=== PATIENT | female | born 1935 | race Caucasian/White ===

== ENCOUNTER 2016-11-24 19:21 | Outpatient (CLI) | payer MEDICARE | END 2016-11-24 23:59 | disposition critical access hospital (66) | LOC: EMS 19:21 | PROVIDERS: ATTEND Surgery | DX: R53.1 Weakness (principal); W18.39XA Other fall on same level, initial encounter; Y92.002 Bathroom of unspecified non-institutional (private) residence as the place of occurrence of the external cause | CPT/HCPCS: A0425; A0427 ==

== ENCOUNTER 2016-11-24 19:55 | Emergency (ER) | payer MEDICARE ==
[2016-11-24] MEDS ORDERED: SODIUM CHLORIDE 0.9% 1,000 ML IV ONE (20:26)
[2016-11-24 21:08] LABS: BASOPHILS # (AUTO) 0.1 10^3/uL (0.0-0.1); BASOPHILS % (AUTO) 0.8 %; EOSINOPHILS % (AUTO) 0.4 %; HCT - HEMATOCRIT 36.1 % (37.0-47.0); HGB - HEMOGLOBIN 12.3 g/dL (12.0-16.0); LYMPHOCYTES # (AUTO) 1.9 10^3/uL (1.5-3.5); LYMPHOCYTES % (AUTO) 18.3 %; MEAN CORPUSCULAR HEMOGLOBIN 30.5 pg (27.0-31.0); MEAN CORPUSCULAR VOLUME 89.8 fL (81.0-99.0); MEAN PLATELET VOLUME 7.6 fL (7.9-10.8); MONOCYTES # (AUTO) 1.8 10^3/uL (0.0-1.0); MONOCYTES % (AUTO) 17.6 %; NEUTROPHILS # (AUTO) 6.5 10^3/uL (1.5-6.6); NEUTROPHILS % (AUTO) 62.9 %; RED BLOOD COUNT 4.02 10^6/uL (4.20-5.40); UNCORRECTED WHITE BLOOD COUNT 10.4 x10^3/uL; WHITE BLOOD COUNT 10.4 x10^3/uL (4.8-10.8)
[2016-11-24 21:11] LABS: BILIRUBIN,TOTAL 0.8 mg/dL (0.2-1.0); CALCIUM 9.3 mg/dL (8.5-10.3); CREATININE 0.8 mg/dL (0.4-1.0); POTASSIUM 3.8 mmol/L (3.5-5.0); TOTAL PROTEIN 7.4 g/dL (6.7-8.2)
[2016-11-24 21:26] LABS: BILIRUBIN,URINE NEGATIVE (NEGATIVE); PH,URINE 5.5 PH (5.0-7.5)
[2016-11-24 21:32] LABS: UA CHARGE (STRIP ONLY) YES; UR CULTURE IF IND NOT INDICATED
--- NOTE | 2016-11-24 23:04 | CT Preliminary Report ---
Exam: CT Head W/O IMPRESSION: No acute or focal intracranial abnormality. [facility] SITE ID: [id number]
--- NOTE | 2016-11-24 23:06 | CT Report ---
EXAM: CT HEAD EXAM DATE: 11/24/2016 10:50 PM. CLINICAL HISTORY: Falling due to weakness. COMPARISON: 06/23/2014. TECHNIQUE: Multiaxial CT images were obtained from the foramen magnum to the vertex. IV contrast: Non e. Reformats: Coronal. In accordance with CT protocol optimization, one or more of the following dose reduction techniques w ere utilized for this exam: automated exposure control, adjustment of mA and/or KV based on patient s ize, or use of iterative reconstructive technique. FINDINGS: Parenchyma: No intraparenchymal hemorrhage. No evidence of mass, midline shift, or CT findings of inf arction. Landa-white differentiation is distinct. Extraaxial Spaces: Normal for age. No subdural or epidural collections identified. Ventricles: Normal in size and position. Sinuses: Imaged paranasal sinuses, orbits, and mastoids show no significant abnormality. Bones: No evidence of fracture or calvarial defect. Other: No change when compared to the prior study. IMPRESSION: No acute or focal intracranial abnormality. [facility] Referring Provider Line: [phone] SITE ID: [id number]
--- NOTE | 2016-11-24 23:15 | ED Physician Documentation ---
History of Present Illness - Stated complaint Stated Complaint: GLF - History obtained from History obtained from: Patient, EMS - Additonal information Additional information: The patient is an 81-year-old insulin-dependent diabetic female who arrives via ambulance after falling in her bathroom at home. She felt generally weak in her legs and crumbled to the floor. She denies loss of consciousness, and denies any specific injury except for pain in her right knee. She was unable to stand under her own power, so called 911. She denies any recent fever, cough or shortness of breath. She denies chest pain, nausea or vomiting. She denies dysuria. She reports having a similar episode at 3 AM today, and called 911 at that time, and the medics helped her up, but she declined transport to the hospital at that time. The patient currently lives alone. Normally her son lives with her, but he is currently a patient in the hospital. Review of Systems Constitutional: denies: Fever Ears: denies: Tinnitus/ringing Nose: denies: Congestion Throat: denies: Sore throat Cardiac: denies: Chest pain / pressure, Palpitations Respiratory: denies: Dyspnea, Cough GI: denies: Abdominal Pain, Nausea, Vomiting : denies: Dysuria Skin: denies: Rash Musculoskeletal: reports: Joint pain (right knee). denies: Back pain Neurologic: reports: Generalized weakness. 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 : None HEENT: None Psych: None Musculoskeletal: None Derm: None - Past Surgical History Past Surgical History: Yes /FACILITY SECURITY OFFICER: Hysterectomy HEENT: Cataracts, Tonsil/Adenoidectomy - Present Medications Home Medications: Ambulatory Orders Medication Instructions Recorded Confirmed Insulin Glargine [Lantus] 54 units SUBQ QPM 06/23/14 11/24/16 Levothyroxine [Synthroid] 175 mcg ORAL DAILY 06/23/14 11/24/16 Lisinopril 20 mg ORAL DAILY 06/23/14 11/24/16 Lovastatin [Altoprev] 40 mg ORAL QPM 06/23/14 11/24/16 Hydrochlorothiazide 25 mg PO DAILY 06/22/15 11/24/16 Insulin Regular, Human [Novolin R] 20 units SUBQ AC 06/22/15 11/24/16 PARoxetine [Paxil] 40 mg PO DAILY 06/22/15 11/24/16 Carvedilol 3.125 mg PO BID 01/29/16 11/24/16 Furosemide 40 mg PO BID 01/29/16 11/24/16 Levofloxacin [Levaquin] 500 mg PO DAILY #3 tablet 02/01/16 11/24/16 - Allergies Allergies/Adverse Reactions: Allergies Allergy/AdvReac Type Severity Reaction Status Date / Time No Known Drug Allergies Allergy Verified 11/24/16 23:30 - Social History Does the pt smoke?: No Smoking Status: Never smoker Does the pt drink ETOH?: No Does the pt have substance abuse?: No - Immunizations Immunizations are current?: Yes PD ED PE NORMAL - Vitals Vital signs reviewed: Yes (borderline systolic hypertension) - General General: Alert and oriented X 3, Other (morbidly obese) - HEENT HEENT: Atraumatic, PERRL, EOMI, Pharynx benign - Neck Neck: No bony TTP, No JVD - Cardiac Cardiac: RRR, No murmur - Respiratory Respiratory: No respiratory distress, Clear bilaterally - Abdomen Abdomen: Soft, Non tender - Back Back: No spinal TTP - Derm Derm: No rash - Extremities Extremities: No calf tenderness / cord, Other (There is tenderness to palpation along the medial joint line of the right knee. No tenderness to palpation along the lateral joint line, and no effusion detected. She was able to flex and extend the knee, although it exacerbates her discomfort.) - Neuro Neuro: Alert and oriented X 3, No motor deficit, No sensory deficit Results - Vitals Vitals: Vital Signs - 24 hr 11/24/16 11/24/16 11/24/16 19:55 20:45 22:00 Temperature 37.4 C Heart Rate 90 80 82 Respiratory 18 18 16 Rate Blood Pressure 140/53 H 148/59 H 167/44 H O2 Saturation 87 L 94 95 11/24/16 11/25/16 11/25/16 23:00 00:12 00:48 Temperature Heart Rate 78 86 75 Respiratory 18 16 18 Rate Blood Pressure 155/60 H 135/46 H 136/60 H O2 Saturation 95 94 94 Oxygen O2 Source [] Nasal cannula O2 Source Room air Oxygen Flow Rate 3 - EKG (time done) 20:31 Rate: Rate (enter#) (83) Rhythm: NSR [place]: Normal Intervals: Prolonged [place] (borderline) QRS: Normal Ischemia: Non specific changes (Diffuse T wave flattening.) Compare to prior EKG: Unchanged from prior EKG Computer interpretation: Agree with computer - Labs Labs: Laboratory Tests 11/24/16 11/24/16 11/24/16 20:50 20:50 20:50 WBC 10.4 RBC 4.02 L Hgb 12.3 Hct 36.1 L MCV 89.8 MCH 30.5 MCHC 34.0 RDW 13.0 Plt Count 238 MPV 7.6 L Neut # 6.5 Lymph # 1.9 [place] # 1.8 H Eos # 0.0 Baso # 0.1 Absolute Nucleated RBC 0.00 Nucleated RBCs 0.0 Sodium 134 L Potassium 3.8 Chloride 91 L Carbon Dioxide 33 H Anion Gap 10.0 BUN 19 Creatinine 0.8 Estimated GFR (MDRD) 69 L Glucose 171 H Calcium 9.3 Total Bilirubin 0.8 AST 58 H ALT 60 Alkaline Phosphatase 163 H Troponin I 0.04 Total Protein 7.4 Albumin 3.7 Globulin 3.7 Albumin/Globulin Ratio 1.0 Lipase 24 Urine Color Urine Clarity Urine pH Ur Specific [place] Urine Protein Urine Glucose (UA) Urine Ketones Urine Occult Blood Urine Nitrite Urine Bilirubin Urine Urobilinogen Ur Leukocyte Esterase Ur Microscopic Review Urine Culture Comments 11/24/16 21:00 WBC RBC Hgb Hct MCV MCH MCHC RDW Plt Count MPV Neut # Lymph # [place] # Eos # Baso # Absolute Nucleated RBC Nucleated RBCs Sodium Potassium Chloride Carbon Dioxide Anion Gap BUN Creatinine Estimated GFR (MDRD) Glucose Calcium Total Bilirubin AST ALT Alkaline Phosphatase Troponin I Total Protein Albumin Globulin Albumin/Globulin Ratio Lipase Urine Color YELLOW Urine Clarity CLEAR Urine pH 5.5 Ur Specific [place] 1.020 Urine Protein TRACE Urine Glucose (UA) NEGATIVE Urine Ketones TRACE Urine Occult Blood NEGATIVE Urine Nitrite NEGATIVE Urine Bilirubin NEGATIVE Urine Urobilinogen 0.2 (NORMAL) Ur Leukocyte Esterase NEGATIVE Ur Microscopic Review NOT INDICATED Urine Culture Comments NOT INDICATED - Rads (name of study) Head CT Radiology: Prelim report reviewed, EMP read contemporaneously, See rad report ( No acute or focal intracranial abnormality.) Right knee Radiology: Prelim report reviewed, EMP read contemporaneously, See rad report ( No right knee fracture or dislocation. Moderate to severe degenerative changes.) PD MEDICAL DECISION MAKING - ED course Complexity details: reviewed old records, reviewed results, re-evaluated patient , considered differential, d/w patient ED course: The patient's presentation is significant for generalized weakness with associated falling in a chronically debilitated elderly female with insulin- dependent diabetes and supplemental oxygen dependency. No significant injuries are detected from her fall today, except for mild contusion to the right knee. There is no focal motor or sensory deficit detected, and the patient does demonstrate ability to ambulate with a walker in the emergency department. I suspect her son who normally lives with her has been helpful to her in the past , but he is currently hospitalized himself. It is likely the patient will benefit from assisted living, or at least some in home health care, and possibly a bedside commode at home. I discussed with her my thoughts regarding the above. She agrees that she may benefit from supportive care, and will discuss this with her primary provider. I provided her with the family resource guide, with contact information for community services. I discussed with her potentially worrisome signs or symptoms that should prompt reevaluation in the emergency department. Treatment in the emergency room included administration of normal saline 500 mL IV. Departure - Departure Disposition: 01 Home, Self Care Clinical Impression: Weakness Fall Qualifiers: Encounter type: initial encounter Qualified Code(s): W19.XXXA - Unspecified fall, initial encounter Right knee DJD Qualifiers: Osteoarthritis type: unspecified Qualified Code(s): M17.11 - Unilateral primary osteoarthritis, right knee Condition: Stable Instructions: ED Weakness UKO Follow-Up: Flor Macario ARNP [Provider Admit Priv/Credential] - Comments: Drink plenty of fluids. Continue your previously prescribed medications. Consider getting a bedside commode. Consider an assisted living facility. You should discuss this with your primary physician. Return to the emergency department if you develop progressive weakness, or otherwise worsening symptoms. Discharge Date/Time: 11/25/16 00:50
--- NOTE | 2016-11-24 23:23 | XRAY Preliminary Report ---
Exam: XR Knee 3 View RT IMPRESSION: 1. No right knee fracture or dislocation. 2. Moderate to severe degenerative changes. [facility] SITE ID: [id number]
--- NOTE | 2016-11-24 23:26 | XRAY Report ---
EXAM: RIGHT KNEE RADIOGRAPHY EXAM DATE: 11/24/2016 10:35 PM. CLINICAL HISTORY: Right knee pain after fall. COMPARISON: None. TECHNIQUE: 3 views. FINDINGS: Bones: Normal. No fractures or bone lesions. Joints: No malalignment with moderate to severe tricompartmental degenerative changes, worse in the m edial compartment of the femorotibial joint. Soft Tissues: Normal. No soft tissue swelling. IMPRESSION: 1. No right knee fracture or dislocation. 2. Moderate to severe degenerative changes. [facility] Referring Provider Line: [phone] SITE ID: [id number]
[2016-11-25 00:50] VITALS: BP 136/60
== END 2016-11-25 00:50 | disposition home or self-care (01) ==
LOC: ED 19:55
DX: R53.1 Weakness (principal); S80.01XA Contusion of right knee, initial encounter; W18.30XA Fall on same level, unspecified, initial encounter; Y92.002 Bathroom of unspecified non-institutional (private) residence as the place of occurrence of the external cause; M17.11 Unilateral primary osteoarthritis, right knee; E11.9 Type 2 diabetes mellitus without complications; Z79.4 Long term (current) use of insulin; E03.9 Hypothyroidism, unspecified; I10 Essential (primary) hypertension; E78.00 Pure hypercholesterolemia, unspecified
CPT/HCPCS: 36415; 51701; 70450; 80053; 81001; 81003; 83690; 84484; 85025; 87086; 93005; 93010; 96360; 96361; 99284; 99285

== ENCOUNTER 2017-05-14 23:24 | Outpatient (CLI) | payer MEDICARE | END 2017-05-14 23:25 | disposition EMS.NT | LOC: EMS 23:24 | PROVIDERS: ATTEND Surgery | DX: S00.81XA Abrasion of other part of head, initial encounter (principal); W01.198A Fall on same level from slipping, tripping and stumbling with subsequent striking against other object, initial encounter; Y92.013 Bedroom of single-family (private) house as the place of occurrence of the external cause ==

== ENCOUNTER 2017-05-15 10:02 | Outpatient (CLI) | payer MEDICARE | END 2017-05-15 10:03 | disposition critical access hospital (66) | LOC: EMS 10:02 | PROVIDERS: ATTEND Surgery | DX: R53.1 Weakness (principal); R26.81 Unsteadiness on feet | CPT/HCPCS: A0425; A0429 ==

== ENCOUNTER 2017-05-15 10:37 | Inpatient (IN) | payer MEDICARE, MEDICAID ==
--- NOTE | 2017-05-15 10:52 | ED Physician Documentation ---
History of Present Illness - Stated complaint Stated Complaint: WEAK - Additonal information Additional information: hx from pt and EMS with with generalized weakness and shaking some abnormal smelling urine a cough - saw PMD dx PND - no CXR febrile en route was weak and fell last night - hit head hurt R shoulder - EMS out for lift assist [facility] 270 pt declined transfer - still weak and shaky today so called 911 again and brought in Review of Systems Constitutional: denies: Fever, Chills Cardiac: denies: Chest pain / pressure Respiratory: reports: Dyspnea, Cough GI: denies: Abdominal Pain, Nausea, Vomiting, Diarrhea : denies: Dysuria Skin: denies: Rash, Lesions, Laceration (s) Musculoskeletal: denies: Neck pain (but given age and distracting injury will image) Neurologic: reports: Generalized weakness, Headache, Head injury. 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: Hysterectomy HEENT: Cataracts, Tonsil/Adenoidectomy - Present Medications Home Medications: Ambulatory Orders Medication Instructions Recorded Confirmed Insulin Glargine [Lantus] 54 units SUBQ QPM 06/23/14 11/24/16 Levothyroxine [Synthroid] 175 mcg ORAL DAILY 06/23/14 11/24/16 Lisinopril 20 mg ORAL DAILY 06/23/14 11/24/16 Lovastatin [Altoprev] 40 mg ORAL QPM 06/23/14 11/24/16 Hydrochlorothiazide 25 mg PO DAILY 06/22/15 11/24/16 Insulin Regular, Human [Novolin R] 20 units SUBQ AC 06/22/15 11/24/16 PARoxetine [Paxil] 40 mg PO DAILY 06/22/15 11/24/16 Carvedilol 3.125 mg PO BID 01/29/16 11/24/16 Furosemide 40 mg PO BID 01/29/16 11/24/16 Levofloxacin [Levaquin] 500 mg PO DAILY #3 tablet 02/01/16 11/24/16 - Allergies Allergies/Adverse Reactions: Allergies Allergy/AdvReac Type Severity Reaction Status Date / Time No Known Drug Allergies Allergy Verified 11/24/16 23:30 - Social History Does the pt smoke?: No Smoking Status: Never smoker Does the pt drink ETOH?: No Does the pt have substance abuse?: No - Immunizations Immunizations are current?: Yes - POLST Patient has POLST: No PD ED PE NORMAL - Vitals Vital signs reviewed: Yes - HEENT HEENT: No: Atraumatic (large bruise to forehead) - Neck Neck: No bony TTP (but will image 2/2 age mechanism and distracting injury) - Cardiac Cardiac: RRR - Respiratory Respiratory: Other (hypoxic, labored, no ronchi) - Abdomen Abdomen: Soft, Non tender - Derm Derm: Other (no posterior breakdown) - Extremities Extremities: Other (no hip TTP, full ROM, no deformity, not short or roatated, R should s deformity but painful ROM, MSV intact) Results - Vitals Vitals: Vital Signs - 24 hr 05/15/17 10:43 Temperature 38.5 C H Heart Rate 98 Respiratory 18 Rate Blood Pressure 127/58 L O2 Saturation 92 Oxygen O2 Source [Without Activity] Nasal cannula O2 Source Nasal cannula Oxygen Flow Rate 2 - Labs Labs: Laboratory Tests 05/15/17 05/15/17 05/15/17 12:19 12:19 12:19 WBC 22.6 H RBC 3.97 L Hgb 12.0 Hct 35.0 L MCV 88.1 MCH 30.1 MCHC 34.2 RDW 13.2 Plt Count 258 MPV 7.3 L Neut # 17.4 H Lymph # 2.0 [place] # 3.2 H Eos # 0.0 Baso # 0.1 Absolute Nucleated RBC 0.01 Nucleated RBC % 0.0 Manual Slide Review Indicated RBC Morph Micro Appear 1+ ANISOCYTOSIS Sodium 134 L Potassium 3.5 Chloride 91 L Carbon Dioxide 29 Anion Gap 14.0 H BUN 27 H Creatinine 0.9 Estimated GFR (MDRD) 60 L Glucose 269 H Lactic Acid 1.6 Calcium 9.9 Urine Color Urine Clarity Urine pH Ur Specific [place] Urine Protein Urine Glucose (UA) Urine Ketones Urine Occult Blood Urine Nitrite Urine Bilirubin Urine Urobilinogen Ur Leukocyte Esterase Urine RBC Urine WBC Ur Squamous Epith Cells Urine Bacteria Ur Microscopic Review Urine Culture Comments 05/15/17 12:45 WBC RBC Hgb Hct MCV MCH MCHC RDW Plt Count MPV Neut # Lymph # [place] # Eos # Baso # Absolute Nucleated RBC Nucleated RBC % Manual Slide Review RBC Morph Micro Appear Sodium Potassium Chloride Carbon Dioxide Anion Gap BUN Creatinine Estimated GFR (MDRD) Glucose Lactic Acid Calcium Urine Color YELLOW Urine Clarity CLOUDY Urine pH 5.5 Ur Specific [place] 1.025 Urine Protein 30 H Urine Glucose (UA) NEGATIVE Urine Ketones NEGATIVE Urine Occult Blood NEGATIVE Urine Nitrite NEGATIVE Urine Bilirubin NEGATIVE Urine Urobilinogen 0.2 (NORMAL) Ur Leukocyte Esterase LARGE H Urine RBC 0-5 Urine WBC >25 H Ur Squamous Epith Cells FEW Squamous Urine Bacteria Many H Ur Microscopic Review INDICATED Urine Culture Comments INDICATED - Rads (name of study) CTH Radiology: See rad report (scalp hematoma no skull fx or ICH) CT CS Radiology: See rad report (no fx, degen changes) shoulder Radiology: See rad report (no acute degen changes) chest Radiology: See rad report (no acute) PD MEDICAL DECISION MAKING - ED course ED course: 81 female with febrile UTI and profound weakness causing falls not hypotensive and neg lactate gave IVF and ab paged hospitalist for admit [id number] Departure - Departure Disposition: 66 [facility] DC/Xfer Clinical Impression: Weakness UTI (urinary tract infection) Qualifiers: Urinary tract infection type: site unspecified Hematuria presence: without hematuria Qualified Code(s): N39.0 - Urinary tract infection, site not specified Falls Qualifiers: Encounter type: initial encounter Qualified Code(s): W19.XXXA - Unspecified fall, initial encounter
--- NOTE | 2017-05-15 11:48 | CT Preliminary Report ---
Exam: CT HEAD W/O IMPRESSION: 1. No acute intracranial abnormality is identified. 2. No acute fracture. 3. Frontal scalp edema and scalp hematoma. [facility] SITE ID: [id number]
--- NOTE | 2017-05-15 11:57 | CT Preliminary Report ---
Exam: CT CERVICAL SPINE W/O IMPRESSION: 1. No acute cervical spine abnormalities are identified. 2. Multilevel intervertebral disk degenerative changes of the cervical spine greatest at C5-C6 and C6 -C7. [facility] SITE ID: [id number]
--- NOTE | 2017-05-15 12:02 | CT Report ---
EXAM: CT HEAD WITHOUT CONTRAST EXAM DATE: 05/15/2017 11:37 AM. CLINICAL HISTORY: Fever, weakness. Fell and hit head. COMPARISON: 11/24/2016. 06/23/2014. TECHNIQUE: Multiaxial CT images were obtained from the foramen magnum to the vertex. Reformats: Coron al. IV contrast: None. In accordance with CT protocol optimization, one or more of the following dose reduction techniques w ere utilized for this exam: automated exposure control, adjustment of mA and/or KV based on patient s ize, or use of iterative reconstructive technique. FINDINGS: Parenchyma: No intraparenchymal hemorrhage. No evidence of mass, midline shift, or CT findings of inf arction. Landa-white differentiation is distinct. Remote right basal ganglia infarct versus prominent perivascular space, stable. Extraaxial Spaces: Normal for age. No subdural or epidural collections identified. Ventricles: Normal in size and position. Sinuses and Orbits: Chronic bilateral maxillary sinus disease. Chronic left sphenoid sinus disease. B ilateral mastoid effusions, right greater than left. Bones: No evidence of fracture or calvarial defect. Other: Changes are seen from bilateral lung surgery. Vascular calcifications are noted. Frontal scalp edema and hematoma with the hematoma measuring up to 1.7 cm. IMPRESSION: 1. No acute intracranial abnormality is identified. 2. No acute fracture. 3. Frontal scalp edema and scalp hematoma. [facility] Referring Provider Line: [phone] SITE ID: [id number]
--- NOTE | 2017-05-15 12:04 | XRAY Preliminary Report ---
Exam: XR CHEST 2 VIEW PA/LAT IMPRESSION: 1. No acute disease. [facility] SITE ID: [id number]
--- NOTE | 2017-05-15 12:06 | XRAY Preliminary Report ---
Exam: XR SHOULDER 3 VIEW RT IMPRESSION: 1. No acute osseous abnormalities. Normal alignment. 2. Degenerative changes of the right shoulder. [facility] SITE ID: [id number]
--- NOTE | 2017-05-15 12:07 | XRAY Report ---
EXAM: CHEST RADIOGRAPHY EXAM DATE: 05/15/2017 11:47 AM. CLINICAL HISTORY: Fever cough weak. COMPARISON: 01/29/2016. 06/22/2015. TECHNIQUE: 2 views. FINDINGS: Lungs/Pleura: No focal opacities evident. No pleural effusion. No pneumothorax. Normal volumes. Mediastinum: Cardiomegaly. Aortic atherosclerosis. Other: None. IMPRESSION: 1. No acute disease. [facility] Referring Provider Line: [phone] SITE ID: [id number]
--- NOTE | 2017-05-15 12:09 | XRAY Report ---
EXAM: RIGHT SHOULDER RADIOGRAPHY EXAM DATE: 05/15/2017 11:47 AM. CLINICAL HISTORY: Fall. Weakness. Fever. COMPARISON: None. TECHNIQUE: 3 views. FINDINGS: Bones: No acute fracture or bony lesion. Type I acromion. Degenerative spurring. Joints: Narrowing of the right acromioclavicular right glenohumeral joint. Dislocation. Narrowing of the subacromial joint space. Soft tissues: The visualized hemithorax is unremarkable. No soft tissue swelling. IMPRESSION: 1. No acute osseous abnormalities. Normal alignment. 2. Degenerative changes of the right shoulder. [facility] Referring Provider Line: [phone] SITE ID: [id number]
[2017-05-15 12:29] LABS: BASOPHILS # (AUTO) 0.1 10^3/uL (0.0-0.1); BASOPHILS % (AUTO) 0.3 %; EOSINOPHILS % (AUTO) 0.1 %; LYMPHOCYTES % (AUTO) 8.8 %; MEAN CORPUSCULAR HEMOGLOBIN 30.1 pg (27.0-31.0); MEAN CORPUSCULAR HGB CONC 34.2 g/dL (32.0-36.0); MEAN CORPUSCULAR VOLUME 88.1 fL (81.0-99.0); MEAN PLATELET VOLUME 7.3 fL (7.9-10.8); MONOCYTES # (AUTO) 3.2 10^3/uL (0.0-1.0); MONOCYTES % (AUTO) 14.1 %; NEUTROPHILS # (AUTO) 17.4 10^3/uL (1.5-6.6); NEUTROPHILS % (AUTO) 76.7 %; RED BLOOD COUNT 3.97 10^6/uL (4.20-5.40); RED CELL DISTRIBUTION WIDTH 13.2 % (12.0-15.0); UNCORRECTED WHITE BLOOD COUNT 22.6 x10^3/uL; WHITE BLOOD COUNT 22.6 x10^3/uL (4.8-10.8)
--- NOTE | 2017-05-15 12:29 | CT Report ---
EXAM: CT CERVICAL SPINE WITHOUT CONTRAST DATE: 05/15/2017 11:37 AM. HISTORY: Fever, weak fell, hit head, distracting right upper extremity injury. COMPARISONS: 06/23/2014. TECHNIQUE: Thin-section axial images were acquired of the cervical spine without contrast. Post-proce ssing: Coronal and sagittal reformats. Other: None. In accordance with CT protocol optimization, one or more of the following dose reduction techniques w ere utilized for this exam: automated exposure control, adjustment of mA and/or KV based on patient s ize, or use of iterative reconstructive technique. FINDINGS: Alignment: Straightening of the normal cervical lordosis. Anterolisthesis of C3 on C4, stable. Retrol isthesis of C5 on C6, stable. Articular facets are normally aligned. Occipital condyles are normal on the lateral masses of C1. Bones: No acute fracture or bony lesion. Degenerative osteophyte formation. Interspace Levels/Facets: C1-C2: Degenerative changes of the anterior arch of C1 and the dens. C2-C3: Cervical facet arthropathy. Mild right neural foraminal narrowing. C3-C4: Disk osteophyte complex. Uncovertebral hypertrophy. Facet arthropathy. Moderate to severe bila teral neural foraminal narrowing. C4-C5: Disk space narrowing. Broad based posterior disk osteophyte complex and uncovertebral hypertro phy. Facet arthropathy. Moderate bilateral neural foraminal narrowing. C5-C6: Disk space narrowing. Osteophyte formation. Broad-based posterior disk osteophyte complex. Unc overtebral hypertrophy. Facet arthropathy. Moderate left and severe right neural foraminal narrowing. C6-C7: Disk space narrowing. Facet arthropathy. Posterior disk osteophyte complex and uncovertebral h ypertrophy. Moderate left neural foraminal narrowing. C7-T1: Disk space narrowing. Facet arthropathy. Mild bilateral neural foraminal narrowing. Musculature: Normal. No fatty atrophy. Other: The paravertebral and prevertebral soft tissues are unremarkable. Lung apices are clear. Vascu lar calcifications are noted. Visualized thyroid gland is unremarkable. No enlarged cervical lymph no wyatt. Airways are clear. Small bilateral mastoid effusions are seen, right greater than left. Chronic bilateral maxillary and left sphenoid sinus disease is seen. Included portion of brain parenchyma is unremarkable. IMPRESSION: 1. No acute cervical spine abnormalities are identified. 2. Multilevel intervertebral disk degenerative changes of the cervical spine greatest at C5-C6 and C6 -C7. [facility] Referring Provider Line: [phone] SITE ID: [id number]
[2017-05-15 12:36] LABS: CALCIUM 9.9 mg/dL (8.5-10.3); CREATININE 0.9 mg/dL (0.4-1.0); POTASSIUM 3.5 mmol/L (3.5-5.0)
[2017-05-15 12:58] LABS: BILIRUBIN,URINE NEGATIVE (NEGATIVE); PH,URINE 5.5 PH (5.0-7.5)
[2017-05-15 13:02] LABS: UA w/ MICROSCOPIC CHARGE YES
[2017-05-15 13:06] LABS: UR CULTURE IF IND INDICATED; WBC,URINE >25 /HPF (0-5)
[2017-05-15] MEDS ORDERED: ACETAMINOPHEN 325 MG TABLET PO STA (13:09)
[2017-05-15] MEDS ORDERED: cefTRIAXone 1 GM in SODIUM CHLORIDE 0.9% MINIBAG 100 ML IV STA (13:09)
[2017-05-15] MEDS ORDERED: SODIUM CHLORIDE 0.9% 2,000 ML IV ONE (13:09)
[2017-05-15] MEDS ORDERED: ACETAMINOPHEN 325 MG TABLET PO ONE (13:30)
[2017-05-15] MEDS ORDERED: cefTRIAXone 1 GM VIAL ONE (13:31)
[2017-05-15] MEDS ORDERED: TEMAZEPAM 15 MG CAPSULE PO PRN (15:13)
[2017-05-15] MEDS ORDERED: ONDANSETRON ODT 4 MG TABLET TL PRN (15:13)
--- NOTE | 2017-05-15 17:40 | HISTORY & PHYSICAL EXAMINATION ---
Chief Complaint - Chief Complaint Chief Complaint: fall, weakness History of Present Illness - Admitted From Admitted From:: ED - History Obtained From Records Reviewed: yes History obtained from: patient, chart review Exam Limitations: none - History of Present Illness HPI Comment/Other: Deni Payne is an 81 year old morbidly obese female with a past medical history diabetes mellitus type 2, AK, CHF, tobacco abuse, chronic oxygen use and a history of frequent falls x2 years. The patient allowed the EMS drivers to bring her to the hospital since last night she fell and hit her left forehead , which caused her to have left eye lid swelling, bruising and discomfort. She also reports recent generalized weakness, fever with chills, a new tremor noted mostly to RUE. She admits to having foul smelling urine for the past week. She has chronic sinus congestion that she relates to her oxygen use, but over the past several weeks she has had more drainage to the back of her throat leading to a cough. On the ambulance ride to the ED she was found to be febrile en route. UA was collected, cultures pending. History - Past Medical History Cardiovascular: reports: Congestive heart failure, Hypertension, High cholesterol, Coronary artery disease, AK Respiratory: reports: Shortness of breath, Other (chronic oxygen use, post AK.) Neuro: reports: Head injury (without soft tissue, brain injury per CT.), Tremors (new tremor in right upper extremity only.) Endocrine/Autoimmune: reports: Type 2 diabetes, HyPOthyroidism GI: reports: None RECRUITING TEAM LEAD: reports: Other (history of cervical cancer when pt was in her 30's.) : reports: Incontinence (new, since recent infection.), Nocturia, Frequency ( on chronic diuretic.) HEENT: reports: Chronic sinusitis, Chronic hearing loss Psych: reports: Depression (paxil), Anxiety Musculoskeletal: reports: Fatigue (sleepy during the day.) Derm: reports: Other drug resistant infections (history of MRSA) MRSA Hx?: Yes - Past Surgical History /RECRUITING TEAM LEAD: reports: Hysterectomy HEENT: reports: Cataracts, Tonsil/Adenoidectomy - Family & Social History Family History: Mother: (brain aneurysm), Asthma, Diabetes, Type 2, Father: , Sister: - Substance History Use: Uses substance without health or social issues: NONE Abuse: Recurrent use of substance despite neg consequences: NONE Dependence: Experiences withdrawal or developed tolerances: NONE, Tobacco ( smoked from age [age]) - POLST Patient has POLST: No POLST Status: Full Code Meds/Allgy - Home Medications Home Medications: Ambulatory Orders Medication Instructions Recorded Confirmed RX: Lisinopril 20 mg ORAL DAILY 06/23/14 05/15/17 RX: Lovastatin [Altoprev] 40 mg ORAL QPM 06/23/14 05/15/17 RX: Hydrochlorothiazide 25 mg PO DAILY 06/22/15 05/15/17 RX: Insulin Regular, Human 0 - 40 units SUBQ TIDWM 06/22/15 05/15/17 [Novolin R] RX: PARoxetine [Paxil] 40 mg PO QPM 06/22/15 05/15/17 RX: Carvedilol 3.125 mg PO BID 01/29/16 05/15/17 RX: Furosemide 40 mg PO DAILY 01/29/16 05/15/17 Insulin Detemir [Levemir Flextouch] 32 units SUBQ BID 05/15/17 05/15/17 Potassium Chloride [Klor-Con M20] 20 meq PO DAILY 05/15/17 05/15/17 RX: Levothyroxine Sodium 175 mcg PO QDAC 05/15/17 05/15/17 - Allergies Allergies/Adverse Reactions: Allergies Allergy/AdvReac Type Severity Reaction Status Date / Time No Known Drug Allergies Allergy Verified 11/24/16 23:30 Review of Systems - Constitutional Constitutional: reports: Fatigue, Fever, Chills, Weakness, Poor appetite - Eyes Eyes: reports: Blurred vision (related to recent injury-brusing with erythema, swelling to left frontal lobe.), Vision loss - Ears, Nose & Throat Ears, Nose & Throat: reports: Ear pain, Hearing loss, Nasal discharge, Nasal obstruction, Nasal congestion, Postnasal drainage, Sore throat, Hoarseness. denies: Hearing aids, Tinnitus, Nosebleeds - Cardiovascular Cariovascular: reports: Irregular heart rate, Edema, Exertional dyspnea, Decr. exercise tolerance - Respiratory Respiratory: reports: Cough, Snoring, Orthopnea, SOB at rest, SOB with exertion , Other (chronic oxygen use.) - Gastrointestinal Gastrointestinal: reports: Abdominal distention, Reflux/heartburn, Poor appetite. denies: Abdominal pain, Black stools, Bloody stools, Nausea, Vomiting , Bile emesis, Carlos blood emesis - Genitourinary Genitourinary: reports: Dysuria, Frequency, Urgency, Incontinence, Nocturia. denies: Hematuria, Flank pain - Musculoskeletal Musculoskeletal: reports: Back pain, Limited range of motion, Muscle weakness, Joint swelling. denies: Muscle pain - Integumentary Integumentary: reports: Dryness. denies: Rash, Lumps - Neurological Neurological: reports: General weakness, Headache (related to recent head injury.), Pre-existing deficit, Abnormal gait. denies: Seizures - Psychiatric Psychiatric: reports: Depression, Anxiety - Hematologic/Lymphatic Hematologic/Lymphatic: reports: Bruising (due to injury) - All Other Systems All Other Systems: reports: Reviewed and negative Exam - Vital Signs Reviewed Vital Signs: Yes Vital Signs: Vital Signs x48h Temp Pulse Resp BP Pulse Ox 05/15/17 16:13 36.9 C 88 20 115/41 L 96 - Physical Exam General Appearance: positive: No acute distress, Alert Eyes Bilateral: positive: Normal inspection ENT: positive: ENT inspection nml, Pharynx nml, Dry mucous membranes Neck: positive: Nml inspection, Thyroid nml, No JVD, Trachea midline, Stiff neck Respiratory: positive: Chest non-tender, No respiratory distress, Breath sounds nml, Other (chronic oxygen.) Cardiovascular: positive: Regular rate & rhythm, No murmur, No gallop Peripheral Pulses: positive: 1+ Abdomen: positive: Non-tender, Nml bowel sounds, Hepatomegaly, Splenomegaly, Other (obese, rounded.) Back: positive: Nml inspection Skin: positive: Color nml, No rash, Warm, Dry Extremities: positive: Non-tender, Pedal edema (mild, BLE) Neurologic/Psychiatric: positive: Oriented x3, CN's nml (2-12), Weakness, Sensory loss, Depressed mood/affect Reflexes: Bicep (R): 2+, Bicep (L): 2+ Conclusion/Plan - Problem List (1) Urinary tract infection Conclusion/Plan: Patient has noticed incontinence that began over the past week and previously had been continent. She also c/o weakness, falls, and the sense of "something just doesn't feel right". She admits to having foul smelling urine for the past week. Plan: Treat with Ceftriaxone, awaiting urine and blood sensitivities. Qualifiers: Urinary tract infection type: site unspecified Hematuria presence: without hematuria Qualified Code(s): N39.0 - Urinary tract infection, site not specified (2) Weakness Conclusion/Plan: Patient admits to falling that has been getting progressively worse since her noted AK over 2 years ago. Plan: PT/OT evaluation, fall precautions. (3) Fall Conclusion/Plan: Patient has frequent falls and at times with injury. EMS is called so that patient can be assisted back to a safe chair. This time, patient woke up after a previous evening fall with a noted bruised left eyebrow that is a deep purple color that has been causing a head ache and mild changes in vision. Patient called EMS and was transport to ED. Plan: Fall precautions. PT/OT to evaluate. Qualifiers: Encounter type: initial encounter Qualified Code(s): W19.XXXA - Unspecified fall, initial encounter (4) T2DM (type 2 diabetes mellitus) Conclusion/Plan: Patient admits to being a diabetic for at least the past 20 years. She has morbid obesity, which complicates this picture. She has mild insulin resistance. Plan: Monitor bedside blood glucose, check HgA1C. Qualifiers: Diabetes mellitus complication status: with circulatory complication Diabetes mellitus complication detail: with other circulatory complications Diabetes mellitus watermaster insulin use: with senior living use Qualified Code(s) : E11.59 - Type 2 diabetes mellitus with other circulatory complications; Z79.4 - termite exterminator (current) use of insulin; Z79.4 - termite exterminator (current) use of insulin ; Z79.4 - termite exterminator (current) use of insulin; Z79.4 - termite exterminator (current) use of insulin (5) Congestive heart failure Conclusion/Plan: Last echocardiogram in [facility] was completed on 06/23/2015 and was found to have a meager EF of only 25-30%, mild concentric LV hypertrophy w/severe global hypokinesis. She utilizes chronic oxygen use, exhibits orthopnea, and has profound exercise intolerance. Plan: Continue medical management, and repeat Echocardiogram in the AM. Qualifiers: Congestive heart failure type: unspecified congestive heart failure type Congestive heart failure chronicity: acute Qualified Code(s): I50.9 - Heart failure, unspecified (6) Hypothyroidism Conclusion/Plan: Patient has a known history and is generally well controlled with home prescribed medication. TSH 2.69 on this admit. Plan: continue home Levothyroxine, check TSH in 5-6 weeks. Code status: FULL DVT prophylaxis: enoxaparin as per pharmacy. Qualifiers: Hypothyroidism type: acquired Qualified Code(s): E03.9 - Hypothyroidism, unspecified - Lab Results Lab results reviewed: Yes Fish Bones: 05/16/17 06:04 05/16/17 06:04 - Diagnostic Imaging Results Diagnostic Imaging Results: positive: Prelim report reviewed - EKG Results EKG Interpreted Independently: Yes Issues/Core Measures - Anticipated LOS Anticipated Stay Length: 2 or more midnights - DVT/VTE - Prophylaxis VTE/DVT Device ordered at admit?: Yes VTE/DVT Prophylaxis med ordered at admit?: Yes - Stroke - Rehab Assessment Rehab services assessment to be ordered?: Yes - AMI - Statin at Admit Aspirin Prescribed on Admit: No Not Ordered - Medical Reason: Contraindicated
[2017-05-15] MEDS ORDERED: INSULIN GLARGINE 300 UNIT/3 ML PEN SUBQ SCH (21:00)
[2017-05-15] MEDS: PARoxetine 10 MG TABLET PO SCH (21:02)
[2017-05-15] MEDS: CARVEDILOL 3.125 MG TABLET PO SCH (21:02)
[2017-05-15] MEDS: SODIUM CHLORIDE FLUSH 0.9% 10 ML SYRINGE IVP SCH (21:03)
[2017-05-15] MEDS: INSULIN ASPART 300 UNIT/3 ML PEN SUBQ SCH (21:04)
[2017-05-16] MEDS ORDERED: BENZOCAINE/MENTHOL LOZENGE MM PRN (00:53)
[2017-05-16] MEDS ORDERED: cefTRIAXone 2 GM in SODIUM CHLORIDE 0.9% MINIBAG 100 ML IV SCH (03:00)
[2017-05-16] MEDS: FLUTICASONE NASAL SPRAY NAS SCH ×4 (03:12→09:13)
[2017-05-16] MEDS: SODIUM CHLORIDE FLUSH 0.9% 10 ML SYRINGE IVP PRN ×3 (03:47→09:21)
[2017-05-16] MEDS: SODIUM CHLORIDE FLUSH 0.9% 10 ML SYRINGE IVP SCH ×3 (04:10→17:27)
[2017-05-16] MEDS: HYDROcod/ACETAM 5/325 MG TABLET PO PRN (04:48)
[2017-05-16 06:12] LABS: BASOPHILS # (AUTO) 0.1 10^3/uL (0.0-0.1); BASOPHILS % (AUTO) 0.3 %; EOSINOPHILS % (AUTO) 0.1 %; HCT - HEMATOCRIT 33.7 % (37.0-47.0); HGB - HEMOGLOBIN 11.2 g/dL (12.0-16.0); LYMPHOCYTES # (AUTO) 1.8 10^3/uL (1.5-3.5); LYMPHOCYTES % (AUTO) 8.5 %; MEAN CORPUSCULAR HEMOGLOBIN 29.9 pg (27.0-31.0); MEAN CORPUSCULAR HGB CONC 33.2 g/dL (32.0-36.0); MEAN PLATELET VOLUME 7.3 fL (7.9-10.8); MONOCYTES # (AUTO) 2.6 10^3/uL (0.0-1.0); MONOCYTES % (AUTO) 12.4 %; NEUTROPHILS # (AUTO) 16.3 10^3/uL (1.5-6.6); NEUTROPHILS % (AUTO) 78.7 %; RED BLOOD COUNT 3.74 10^6/uL (4.20-5.40); RED CELL DISTRIBUTION WIDTH 13.5 % (12.0-15.0); UNCORRECTED WHITE BLOOD COUNT 20.7 x10^3/uL; WHITE BLOOD COUNT 20.7 x10^3/uL (4.8-10.8)
[2017-05-16] MEDS: PANTOPRAZOLE 40 MG TABLET PO SCH (06:25)
[2017-05-16] MEDS: LEVOTHYROXINE 125 MCG TABLET PO SCH (06:26)
[2017-05-16 06:27] LABS: ALBUMIN/GLOBULIN RATIO 0.9 (1.0-2.2); BILIRUBIN,TOTAL 1.8 mg/dL (0.2-1.0); CALCIUM 9.4 mg/dL (8.5-10.3); CREATININE 1.1 mg/dL (0.4-1.0); MAGNESIUM 1.4 mg/dL (1.7-2.8); PHOSPHORUS 2.1 mg/dL (2.5-4.6); POTASSIUM 3.6 mmol/L (3.5-5.0)
[2017-05-16 06:40] LABS: HEMOGLOBIN A1C 0.71 g/dL
[2017-05-16 06:44] LABS: PLATELET ESTIMATE, MANUAL NORMAL (130-450,000) (NORMAL); PLATELET MORPHOLOGY NORMAL APPEARANCE (NORMAL)
[2017-05-16] MEDS: INSULIN ASPART 300 UNIT/3 ML PEN SUBQ SCH ×5 (08:16→21:44)
[2017-05-16] MEDS: FUROSEMIDE 40 MG TABLET PO SCH (08:17)
[2017-05-16] MEDS: POTASSIUM CHLORIDE 20 MEQ TABLET PO SCH (08:18)
[2017-05-16] MEDS: ENOXAPARIN 40 MG/0.4 ML SYRINGE SUBQ SCH (08:18)
[2017-05-16] MEDS: CARVEDILOL 3.125 MG TABLET PO SCH ×2 (08:18→20:51)
[2017-05-16] MEDS ORDERED: SODIUM CHLORIDE 0.9% 500 ML IV ONE (08:19)
[2017-05-16] MEDS: POLYETHYLENE GLYCOL 3350 17 GM PACKET PO SCH (08:19)
--- NOTE | 2017-05-16 08:23 | PROVIDER PROGRESS NOTE ---
Subjective - Prog Note Date Prog Note Date: 05/16/17 Prog Note Time: 08:23 - Subjective Pt reports feeling: No change Subjective: Deni was busily eating her dinner and claims she was too tired to get out of bed today. She denies N/V, chest pain or a new cough. She does note wheezing. Current Medications - Current Medications Current Medications: Active Medications Acetaminophen/Hydrocodone Bitart ([place] 5/325) 1 tab PO Q4HR PRN PRN Reason: PAIN Last Admin: 05/16/17 04:48 Dose: 1 tab Carvedilol (Coreg) 3.125 mg PO BID [facility] Last Admin: 05/16/17 08:18 Dose: 3.125 mg Enoxaparin Sodium (Lovenox) 40 mg SUBQ DAILY [facility] Last Admin: 05/16/17 08:18 Dose: 40 mg Fluticasone Propionate (Flonase) 0 sprays YANIRA BID [facility] Last Admin: 05/16/17 08:19 Dose: 1 sprays Furosemide (Lasix) 40 mg PO DAILY [facility] Last Admin: 05/16/17 08:17 Dose: 40 mg Hydrochlorothiazide (Hydrodiuril) 25 mg PO DAILY [facility] Last Admin: 05/16/17 08:17 Dose: 25 mg Ceftriaxone Sodium 2 gm/ (Sodium Chloride) 100 mls @ 200 mls/hr IV Q24H [facility] Last Infusion: 05/16/17 04:12 Dose: Infused Sodium Chloride (Normal Saline 0.9%) 500 mls @ 999 mls/hr IV ONCE ONE Stop: 05/16/17 08:49 Insulin Aspart (Novolog) 1 - 9 unit SUBQ 0800,1200,1700,2100 [facility] PRN Reason: Protocol Last Admin: 05/16/17 08:16 Dose: 9 unit Insulin Glargine (Lantus Solostar) 32 unit SUBQ QPM [facility] Last Admin: 05/15/17 21:03 Dose: 32 unit Levothyroxine Sodium (Synthroid) 125 mcg PO QDAC [facility] Last Admin: 05/16/17 06:26 Dose: 125 mcg Ondansetron HCl (Zofran Odt) 4 mg TL Q6HR PRN PRN Reason: Nausea / Vomiting Pantoprazole Sodium (Protonix) 40 mg PO QDAC [facility] Last Admin: 05/16/17 06:25 Dose: 40 mg Paroxetine HCl (Paxil) 40 mg PO QPM [facility] Last Admin: 05/15/17 21:02 Dose: 40 mg Polyethylene Glycol (Miralax) 17 gm PO DAILY [facility] Last Admin: 05/16/17 08:19 Dose: Not Given Potassium Chloride (K-Dur) 20 meq PO DAILY [facility] Last Admin: 05/16/17 08:18 Dose: 20 meq Sodium Chloride (Normal Saline Flush 0.9%) 10 ml IVP PRN PRN PRN Reason: NEEDED PER PROVIDER ORDERS Last Admin: 05/16/17 06:26 Dose: 10 ml Sodium Chloride (Normal Saline Flush 0.9%) 10 ml IVP Q8HR [facility] Last Admin: 05/16/17 04:10 Dose: 10 ml Temazepam (Restoril) 15 mg PO QPM PRN PRN Reason: Insomnia Throat Lozenges (Cepacol) 1 lozenge MM Q2HR PRN PRN Reason: Throat pain Last Admin: 05/16/17 01:15 Dose: 1 lozenge Lisinopril 20 mg ORAL DAILY 06/23/14 Lovastatin [Altoprev] 40 mg ORAL QPM 06/23/14 Hydrochlorothiazide 25 mg PO DAILY 06/22/15 Insulin Regular, Human [Novolin R] 0 - 40 units SUBQ TIDWM 06/22/15 PARoxetine [Paxil] 40 mg PO QPM 06/22/15 Carvedilol 3.125 mg PO BID 01/29/16 Furosemide 40 mg PO DAILY 01/29/16 Insulin Detemir [Levemir Flextouch] 32 units SUBQ BID 05/15/17 Levothyroxine Sodium 175 mcg PO QDAC 05/15/17 Potassium Chloride [Klor-Con M20] 20 meq PO DAILY 05/15/17 Objective - Vital Signs/Intake & Output Reviewed Vital Signs: Yes Vital Signs: Vital Signs x48h Temp Pulse Resp BP Pulse Ox 05/16/17 07:18 37.2 C 81 22 133/49 H 93 05/16/17 05:56 37.5 C 89 18 131/49 H 94 05/16/17 00:30 37.2 C 98 20 128/49 L 93 Intake & Output: Intake & Output 05/13/17 05/14/17 05/15/17 05/16/17 23:59 23:59 23:59 23:59 Intake Total 2360 600 Output Total 150 125 Balance 2210 475 - Objective General Appearance: positive: No acute distress, Alert Eyes Bilateral: positive: Normal inspection, Other (bruising now extending into right eye orbit. Blurred vision unchanged from admit.) ENT: positive: ENT inspection nml, Pharynx nml, Dry mucous membranes Neck: positive: Nml inspection, Thyroid nml, No JVD, Trachea midline Respiratory: positive: Chest non-tender, No respiratory distress Cardiovascular: positive: Regular rate & rhythm, No gallop, Systolic murmur Peripheral Pulses: 1+ Dorsalis pedis (R), 1+ Dorsalis pedis (L), 2+ Radial (R), 2+ Radial (L) Abdomen: positive: Non-tender, No organomegaly, Nml bowel sounds, Hepatomegaly Back: positive: Nml inspection Skin: positive: Color nml, No rash, Warm, Dry Extremities: positive: Non-tender, Pedal edema, Calf tenderness, Joint swelling Neurologic/Psychiatric: positive: Weakness, Sensory loss, Depressed mood/affect Reflexes: Bicep (R): 2+, Bicep (L): 2+ - Lab Results Fish Bones: 05/16/17 06:04 05/16/17 06:04 Other Labs: Lab Results x24hrs 05/16/17 05/16/17 05/16/17 Range/Units 07:14 06:04 06:04 WBC (4.8-10.8) x10^3/uL RBC (4.20-5.40) 10^6/uL Hgb (12.0-16.0) g/dL Hct (37.0-47.0) % MCV (81.0-99.0) fL MCH (27.0-31.0) pg MCHC (32.0-36.0) g/dL RDW (12.0-15.0) % Plt Count (130-450) 10^3/uL MPV (7.9-10.8) fL Neut # (1.5-6.6) 10^3/uL Lymph # (1.5-3.5) 10^3/uL [place] # (0.0-1.0) 10^3/uL Eos # (0.0-0.7) 10^3/uL Baso # (0.0-0.1) 10^3/uL Absolute Nucleated RBC x10^3/uL Nucleated RBC % /100WBC Manual Slide Review Platelet Estimate (NORMAL) Platelet Morphology (NORMAL) RBC Morph Micro Appear (NORMAL) Sodium (135-145) mmol/L Potassium (3.5-5.0) mmol/L Chloride (101-111) mmol/L Carbon Dioxide (21-32) mmol/L Anion Gap (6-13) BUN (6-20) mg/dL Creatinine (0.4-1.0) mg/dL Estimated GFR (MDRD) (>89) Glucose (70-100) mg/dL POC Whole Bld Glucose 369 H (70 - 100) mg/dL Glycated Hemoglobin 7.9 H (4.6-6.2) % Estim Average Glucose 180 H (70-100) Lactic Acid (0.5-2.2) mmol/L Calcium (8.5-10.3) mg/dL Phosphorus (2.5-4.6) mg/dL Magnesium (1.7-2.8) mg/dL Total Bilirubin (0.2-1.0) mg/dL AST (10-42) IU/L ALT (10-60) IU/L Alkaline Phosphatase (42-121) IU/L Total Protein (6.7-8.2) g/dL Albumin (3.2-5.5) g/dL Globulin (2.1-4.2) g/dL Albumin/Globulin Ratio (1.0-2.2) TSH 2.69 (0.34-5.60) uIU/mL 05/16/17 05/16/17 05/16/17 Range/Units 06:04 06:04 06:04 WBC 20.7 H (4.8-10.8) x10^3/uL RBC 3.74 L (4.20-5.40) 10^6/uL Hgb 11.2 L (12.0-16.0) g/dL Hct 33.7 L (37.0-47.0) % MCV 90.0 (81.0-99.0) fL MCH 29.9 (27.0-31.0) pg MCHC 33.2 (32.0-36.0) g/dL RDW 13.5 (12.0-15.0) % Plt Count 222 (130-450) 10^3/uL MPV 7.3 L (7.9-10.8) fL Neut # 16.3 H (1.5-6.6) 10^3/uL Lymph # 1.8 (1.5-3.5) 10^3/uL [place] # 2.6 H (0.0-1.0) 10^3/uL Eos # 0.0 (0.0-0.7) 10^3/uL Baso # 0.1 (0.0-0.1) 10^3/uL Absolute Nucleated RBC 0.00 x10^3/uL Nucleated RBC % 0.0 /100WBC Manual Slide Review Indicated Platelet Estimate NORMAL (130-450,000) (NORMAL) Platelet Morphology NORMAL APPEARANCE (NORMAL) RBC Morph Micro Appear NORMAL APPEARANCE (NORMAL) Sodium 132 L (135-145) mmol/L Potassium 3.6 (3.5-5.0) mmol/L Chloride 89 L (101-111) mmol/L Carbon Dioxide 28 (21-32) mmol/L Anion Gap 15.0 H (6-13) BUN 29 H (6-20) mg/dL Creatinine 1.1 H (0.4-1.0) mg/dL Estimated GFR (MDRD) 48 L (>89) Glucose 386 H (70-100) mg/dL POC Whole Bld Glucose (70 - 100) mg/dL Glycated Hemoglobin (4.6-6.2) % Estim Average Glucose (70-100) Lactic Acid 1.6 (0.5-2.2) mmol/L Calcium 9.4 (8.5-10.3) mg/dL Phosphorus 2.1 L (2.5-4.6) mg/dL Magnesium 1.4 L (1.7-2.8) mg/dL Total Bilirubin 1.8 H (0.2-1.0) mg/dL AST 101 H (10-42) IU/L ALT 87 H (10-60) IU/L Alkaline Phosphatase 171 H (42-121) IU/L Total Protein 7.0 (6.7-8.2) g/dL Albumin 3.4 (3.2-5.5) g/dL Globulin 3.6 (2.1-4.2) g/dL Albumin/Globulin Ratio 0.9 L (1.0-2.2) TSH (0.34-5.60) uIU/mL 05/15/17 05/15/17 Range/Units 20:47 17:10 WBC (4.8-10.8) x10^3/uL RBC (4.20-5.40) 10^6/uL Hgb (12.0-16.0) g/dL Hct (37.0-47.0) % MCV (81.0-99.0) fL MCH (27.0-31.0) pg MCHC (32.0-36.0) g/dL RDW (12.0-15.0) % Plt Count (130-450) 10^3/uL MPV (7.9-10.8) fL Neut # (1.5-6.6) 10^3/uL Lymph # (1.5-3.5) 10^3/uL [place] # (0.0-1.0) 10^3/uL Eos # (0.0-0.7) 10^3/uL Baso # (0.0-0.1) 10^3/uL Absolute Nucleated RBC x10^3/uL Nucleated RBC % /100WBC Manual Slide Review Platelet Estimate (NORMAL) Platelet Morphology (NORMAL) RBC Morph Micro Appear (NORMAL) Sodium (135-145) mmol/L Potassium (3.5-5.0) mmol/L Chloride (101-111) mmol/L Carbon Dioxide (21-32) mmol/L Anion Gap (6-13) BUN (6-20) mg/dL Creatinine (0.4-1.0) mg/dL Estimated GFR (MDRD) (>89) Glucose (70-100) mg/dL POC Whole Bld Glucose 366 H 292 H (70 - 100) mg/dL Glycated Hemoglobin (4.6-6.2) % Estim Average Glucose (70-100) Lactic Acid (0.5-2.2) mmol/L Calcium (8.5-10.3) mg/dL Phosphorus (2.5-4.6) mg/dL Magnesium (1.7-2.8) mg/dL Total Bilirubin (0.2-1.0) mg/dL AST (10-42) IU/L ALT (10-60) IU/L Alkaline Phosphatase (42-121) IU/L Total Protein (6.7-8.2) g/dL Albumin (3.2-5.5) g/dL Globulin (2.1-4.2) g/dL Albumin/Globulin Ratio (1.0-2.2) TSH (0.34-5.60) uIU/mL - Diagnostic Imaging Diagnostic Imaging Results: positive: Final report reviewed Diagnostic Imaging Comments: Echocardiogram-pending. Will be completed at bedside in AM on 05/17/17. Assessment/Plan - Problem List (1) Bacteremia due to Gram-negative bacteria Impression: Preliminary blood culture results taken in ED show gram negative bacilli. Upon chart review, patient has a history of MRSA, nasal swab negative. No need for contact precautions. Plan: IV Rochephin, pending sensitivities. (2) Urinary tract infection Impression: Patient denies previous incontinence, but over the past week has had frequency, nocturia, and incontinence. Fever, chills and weakness at home per patient report. Urine cultures and sensitivities are resulted and show the greatest sensitivity to Levofloxacin, which will be ideal for out patient use. Plan: changed IV antibiotic to Levofloxacin to begin 05/17, will change to PO form upon discharge. Qualifiers: Urinary tract infection type: site unspecified Hematuria presence: without hematuria Qualified Code(s): N39.0 - Urinary tract infection, site not specified (3) Fall Impression: Patient admits to frequent falls that started back about 2 years ago. This time she sustained a head injury as a result of her fall the night before the EMS was called. Patient states that she will fall at home, and the EMS will come to her home and assist her back to the chair as she typically refuses ED admissions. Plan: Continue with fall precautions to prevent injury. PT ordered. Qualifiers: Encounter type: initial encounter Qualified Code(s): W19.XXXA - Unspecified fall, initial encounter (4) Weakness Impression: Patient admits to falling that has been getting progressively worse since her noted CA over 2 years ago. Will be doing further work up on CHF as a possible causative etiology. Plan: PT/OT evaluation, fall precautions. (5) T2DM (type 2 diabetes mellitus) Impression: Patient admits to being a diabetic for at least the past 20 years. She has morbid obesity, which complicates this picture. She has mild insulin resistance. There has been some discrepancy as to patient's home dose of long- acting insulin. Blood glucose has been uncontrolled since admission. PO agents on hold as per hospital protocol, in the event of an emergent scan. Plan: Lantus adjustments made. AC Aspart added. Monitor bedside blood glucose , check HgA1C. Qualifiers: Diabetes mellitus complication status: with circulatory complication Diabetes mellitus complication detail: with other circulatory complications Diabetes mellitus prison insulin use: with exterminator termite use Qualified Code(s) : E11.59 - Type 2 diabetes mellitus with other circulatory complications; Z79.4 - jail (current) use of insulin; Z79.4 - adjunct faculty for medical terminology (current) use of insulin ; Z79.4 - adjunct faculty for medical terminology (current) use of insulin; Z79.4 - adjunct faculty for medical terminology (current) use of insulin (6) Congestive heart failure Impression: History of CA, likely leading to CHF. Last echocardiogram in [facility] was completed on 06/23/2015 and was found to have a meager EF of only 25-30%, mild concentric LV hypertrophy w/severe global hypokinesis. She utilizes chronic oxygen use, exhibits orthopnea, and has profound exercise intolerance. Plan: Continue medical management, and repeat Echocardiogram in the AM. Qualifiers: Congestive heart failure type: unspecified congestive heart failure type Congestive heart failure chronicity: acute Qualified Code(s): I50.9 - Heart failure, unspecified (7) Dependence on supplemental oxygen Impression: Patient admits to home oxygen use for greater than 2 years, "after my heart attack". She also exhibits orthopnea, SOB with activity. Plan: Continued oxygen therapy. Nasal sprays for dryness. (8) Hypothyroidism Impression: Patient has a known history and is generally well controlled with home prescribed medication. TSH 2.69 on this admit. Plan: continue home Levothyroxine, check TSH in 5-6 weeks. Qualifiers: Hypothyroidism type: acquired Qualified Code(s): E03.9 - Hypothyroidism, unspecified
[2017-05-16] MEDS ORDERED: INSULIN GLARGINE 300 UNIT/3 ML PEN SUBQ SCH (08:26)
[2017-05-16] MEDS ORDERED: hydroCHLOROthiazide 25 MG TABLET PO SCH (09:00)
[2017-05-16] MEDS: MAGNESIUM OXIDE 400 MG TABLET PO SCH ×2 (09:21→10:15)
[2017-05-16] MEDS ORDERED: MAGNESIUM OXIDE 400 MG TABLET PO SCH (12:00)
[2017-05-16] MEDS ORDERED: INSULIN ASPART 300 UNIT/3 ML PEN SUBQ SCH ×2 (12:13→16:55)
[2017-05-16] MEDS ORDERED: FLU VACCINE TS 2017-2018 45 MCG/0.5 ML SYRINGE IM ONE (17:00)
[2017-05-16] MEDS ORDERED: FUROSEMIDE 20 MG/2 ML VIAL IVP SCH (17:04)
[2017-05-16] MEDS: PARoxetine 10 MG TABLET PO SCH (20:51)
[2017-05-16] MEDS ORDERED: levoFLOXacin 500 MG/100 ML 500 MG/100 ML BAG IV SCH (21:00)
[2017-05-16] MEDS ORDERED: SODIUM CHLORIDE 0.9% 250 ML IV ONE (21:06)
[2017-05-17 06:02] LABS: BASOPHILS % (AUTO) 0.4 %; EOSINOPHILS % (AUTO) 2.1 %; HCT - HEMATOCRIT 32.1 % (37.0-47.0); HGB - HEMOGLOBIN 10.7 g/dL (12.0-16.0); LYMPHOCYTES % (AUTO) 12.1 %; MEAN CORPUSCULAR HEMOGLOBIN 30.2 pg (27.0-31.0); MEAN CORPUSCULAR HGB CONC 33.3 g/dL (32.0-36.0); MEAN CORPUSCULAR VOLUME 90.8 fL (81.0-99.0); MEAN PLATELET VOLUME 8.2 fL (7.9-10.8); MONOCYTES % (AUTO) 12.2 %; NEUTROPHILS % (AUTO) 73.2 %; RED BLOOD COUNT 3.53 10^6/uL (4.20-5.40); RED CELL DISTRIBUTION WIDTH 13.9 % (12.0-15.0); UNCORRECTED WHITE BLOOD COUNT 15.7 x10^3/uL; WHITE BLOOD COUNT 15.7 x10^3/uL (4.8-10.8)
[2017-05-17 06:15] LABS: ALBUMIN/GLOBULIN RATIO 0.9 (1.0-2.2); CALCIUM 9.2 mg/dL (8.5-10.3); CREATININE 1.1 mg/dL (0.4-1.0); POTASSIUM 3.3 mmol/L (3.5-5.0); TOTAL PROTEIN 6.7 g/dL (6.7-8.2)
[2017-05-17 06:22] LABS: BAND NEUTROPHILS % (MANUAL) 13 %; BASOPHILS % (MANUAL) 1 %; LYMPHOCYTES % (MANUAL) 18 %; NEUTROPHILS % (MANUAL) 57 %; TOTAL CELLS COUNTED 100
[2017-05-17 06:23] LABS: NP AUTO DIFFERENTIAL? YES; NP MAN DIFFERENTIAL? NO; PLATELET ESTIMATE, MANUAL NORMAL (130-450,000) (NORMAL)
[2017-05-17] MEDS: LEVOTHYROXINE 125 MCG TABLET PO SCH (06:45)
[2017-05-17] MEDS: PANTOPRAZOLE 40 MG TABLET PO SCH (06:45)
[2017-05-17] MEDS: SODIUM CHLORIDE FLUSH 0.9% 10 ML SYRINGE IVP SCH ×3 (06:45→21:00)
[2017-05-17] MEDS ORDERED: levoFLOXacin 500 MG/100 ML 500 MG/100 ML BAG IV SCH (08:00)
[2017-05-17] MEDS ORDERED: cefTRIAXone 2 GM in SODIUM CHLORIDE 0.9% MINIBAG 100 ML IV SCH (09:00)
--- NOTE | 2017-05-17 09:27 | PROVIDER PROGRESS NOTE ---
Subjective - Prog Note Date Prog Note Date: 05/17/17 Prog Note Time: 09:24 - Subjective Pt reports feeling: Improved, No change Subjective: Deni is still not back to baseline, although admits to sitting in the chair for a while today. She denies SOB, chest pain, N/V or a new cough. The bruising on her face related to her fall at home is becoming slightly greenish around the edges, but has traveled down into her right eye orbit. She is enjoying her food and was updated on the results of her echocardiogram from today, which shows an improved EF of 35% since last echo in June 2015. Current Medications - Current Medications Current Medications: Active Medications Acetaminophen/Hydrocodone Bitart (Santa 5/325) 1 tab PO Q4HR PRN PRN Reason: PAIN Last Admin: 05/16/17 04:48 Dose: 1 tab Carvedilol (Coreg) 3.125 mg PO BID [facility] Last Admin: 05/16/17 20:51 Dose: 3.125 mg Enoxaparin Sodium (Lovenox) 40 mg SUBQ DAILY [facility] Last Admin: 05/16/17 08:18 Dose: 40 mg Fluticasone Propionate (Flonase) 2 sprays YANIRA DAILY [facility] Last Admin: 05/16/17 09:13 Dose: Not Given Furosemide (Lasix) 40 mg PO DAILY [facility] Last Admin: 05/16/17 08:17 Dose: 40 mg Levofloxacin (Levaquin 250 Mg/50 Ml) 250 mg in 50 mls @ 50 mls/hr IV Q24H [facility] Influenza Virus Vaccine (Fluad 6935-2489 (>/65 Years)) 45 mcg IM .ONCE ONE Stop: 05/18/17 17:01 Insulin Aspart (Novolog) 3 - 11 unit SUBQ 0800,1200,1700,2100 [facility] PRN Reason: Protocol Last Admin: 05/16/17 20:52 Dose: 11 unit Insulin Aspart (Novolog) 5 unit SUBQ TIDWM [facility] Last Admin: 05/16/17 21:44 Dose: 5 unit Insulin Glargine (Lantus Solostar) 40 unit SUBQ BID [facility] Levothyroxine Sodium (Synthroid) 125 mcg PO QDAC [facility] Last Admin: 05/17/17 06:45 Dose: 125 mcg Ondansetron HCl (Zofran Odt) 4 mg TL Q6HR PRN PRN Reason: Nausea / Vomiting Pantoprazole Sodium (Protonix) 40 mg PO QDAC [facility] Last Admin: 05/17/17 06:45 Dose: 40 mg Paroxetine HCl (Paxil) 40 mg PO QPM [facility] Last Admin: 05/16/17 20:51 Dose: 40 mg Polyethylene Glycol (Miralax) 17 gm PO DAILY [facility] Last Admin: 05/16/17 08:19 Dose: Not Given Potassium Chloride (K-Dur) 20 meq PO DAILY [facility] Last Admin: 05/16/17 08:18 Dose: 20 meq Sodium Chloride (Normal Saline Flush 0.9%) 10 ml IVP PRN PRN PRN Reason: NEEDED PER PROVIDER ORDERS Last Admin: 05/16/17 09:21 Dose: 10 ml Sodium Chloride (Normal Saline Flush 0.9%) 10 ml IVP Q8HR [facility] Last Admin: 05/17/17 06:45 Dose: 10 ml Sodium Chloride (Rains) 1 sprays YANIRA DAILY@0800 [facility] Temazepam (Restoril) 15 mg PO QPM PRN PRN Reason: Insomnia Throat Lozenges (Cepacol) 1 lozenge MM Q2HR PRN PRN Reason: Throat pain Last Admin: 05/16/17 01:15 Dose: 1 lozenge Lisinopril 20 mg ORAL DAILY 06/23/14 Lovastatin [Altoprev] 40 mg ORAL QPM 06/23/14 Hydrochlorothiazide 25 mg PO DAILY 06/22/15 Insulin Regular, Human [Novolin R] 0 - 40 units SUBQ TIDWM 06/22/15 PARoxetine [Paxil] 40 mg PO QPM 06/22/15 Carvedilol 3.125 mg PO BID 01/29/16 Furosemide 40 mg PO DAILY 01/29/16 Insulin Detemir [Levemir Flextouch] 32 units SUBQ BID 05/15/17 Levothyroxine Sodium 175 mcg PO QDAC 05/15/17 Potassium Chloride [Klor-Con M20] 20 meq PO DAILY 05/15/17 Objective - Vital Signs/Intake & Output Reviewed Vital Signs: Yes Vital Signs: Vital Signs x48h Temp Pulse Resp BP Pulse Ox 05/17/17 08:16 37.1 C 74 18 118/57 L 95 05/17/17 05:00 37.0 C 75 18 127/43 L 95 Intake & Output: Intake & Output 05/14/17 05/15/17 05/16/17 05/17/17 23:59 23:59 23:59 23:59 Intake Total 2360 1810 200 Output Total 150 1500 1050 Balance 2210 310 -850 - Objective General Appearance: positive: No acute distress, Alert Eyes Bilateral: positive: PERRL, Other (bruising above left eye, now dark purple brusing into right eye orbit.) ENT: positive: ENT inspection nml, Pharynx nml, No signs of dehydration, Dry mucous membranes Neck: positive: Nml inspection, Thyroid nml, No JVD, Trachea midline Respiratory: positive: Chest non-tender, No respiratory distress Cardiovascular: positive: Regular rate & rhythm, No gallop, Systolic murmur Peripheral Pulses: 1+ Radial (R), 1+ Radial (L) Abdomen: positive: Non-tender, Hepatomegaly, Splenomegaly, Abnml bowel sounds Back: positive: Nml inspection Skin: positive: Color nml, No rash, Warm, Dry Extremities: positive: Non-tender, Pedal edema, Calf tenderness, Joint swelling Neurologic/Psychiatric: positive: Oriented x3, CN's nml (2-12), Weakness, Sensory loss Reflexes: Bicep (R): 3+, Bicep (L): 3+ - Lab Results Fish Bones: 05/17/17 05:19 05/17/17 05:19 Other Labs: Lab Results x24hrs 05/17/17 05/17/17 05/17/17 Range/Units 07:49 05:19 05:19 WBC 15.7 H (4.8-10.8) x10^3/uL RBC 3.53 L (4.20-5.40) 10^6/uL Hgb 10.7 L (12.0-16.0) g/dL Hct 32.1 L (37.0-47.0) % MCV 90.8 (81.0-99.0) fL MCH 30.2 (27.0-31.0) pg MCHC 33.3 (32.0-36.0) g/dL RDW 13.9 (12.0-15.0) % Plt Count 221 (130-450) 10^3/uL MPV 8.2 (7.9-10.8) fL Neut # Not Reportable Lymph # Not Reportable Collier # Not Reportable Eos # Not Reportable Baso # Not Reportable Absolute Nucleated RBC Not Reportable Total Counted 100 Band Neuts % (Manual) 13 H (0 - 10) % Abnorm Lymph % (Manual) 0 % Nucleated RBC % Not Reportable Neutrophils # (Manual) 11.0 H (1.5-6.6) 10^3/uL Lymphocytes # (Manual) 2.8 (1.5-3.5) 10^3/uL Monocytes # (Manual) 1.7 H (0.0-1.0) 10^3/uL Eosinophils # (Manual) 0.0 (0-0.7) 10^3/uL Basophils # (Manual) 0.2 H (0-0.1) 10^3/uL Differential Comment MANUAL DIFFERENTIAL Platelet Estimate NORMAL (130-450,000) (NORMAL) RBC Morph Micro Appear NORMAL APPEARANCE (NORMAL) Sodium 134 L (135-145) mmol/L Potassium 3.3 L (3.5-5.0) mmol/L Chloride 93 L (101-111) mmol/L Carbon Dioxide 31 (21-32) mmol/L Anion Gap 10.0 (6-13) BUN 32 H (6-20) mg/dL Creatinine 1.1 H (0.4-1.0) mg/dL Estimated GFR (MDRD) 48 L (>89) Glucose 284 H (70-100) mg/dL POC Whole Bld Glucose 315 H (70 - 100) mg/dL Calcium 9.2 (8.5-10.3) mg/dL Total Bilirubin 1.0 (0.2-1.0) mg/dL AST 61 H (10-42) IU/L ALT 65 H (10-60) IU/L Alkaline Phosphatase 193 H (42-121) IU/L Total Protein 6.7 (6.7-8.2) g/dL Albumin 3.1 L (3.2-5.5) g/dL Globulin 3.6 (2.1-4.2) g/dL Albumin/Globulin Ratio 0.9 L (1.0-2.2) 05/16/17 05/16/17 05/16/17 Range/Units 20:36 16:47 11:11 WBC (4.8-10.8) x10^3/uL RBC (4.20-5.40) 10^6/uL Hgb (12.0-16.0) g/dL Hct (37.0-47.0) % MCV (81.0-99.0) fL MCH (27.0-31.0) pg MCHC (32.0-36.0) g/dL RDW (12.0-15.0) % Plt Count (130-450) 10^3/uL MPV (7.9-10.8) fL Neut # Lymph # Collier # Eos # Baso # Absolute Nucleated RBC Total Counted Band Neuts % (Manual) (0 - 10) % Abnorm Lymph % (Manual) % Nucleated RBC % Neutrophils # (Manual) (1.5-6.6) 10^3/uL Lymphocytes # (Manual) (1.5-3.5) 10^3/uL Monocytes # (Manual) (0.0-1.0) 10^3/uL Eosinophils # (Manual) (0-0.7) 10^3/uL Basophils # (Manual) (0-0.1) 10^3/uL Differential Comment Platelet Estimate (NORMAL) RBC Morph Micro Appear (NORMAL) Sodium (135-145) mmol/L Potassium (3.5-5.0) mmol/L Chloride (101-111) mmol/L Carbon Dioxide (21-32) mmol/L Anion Gap (6-13) BUN (6-20) mg/dL Creatinine (0.4-1.0) mg/dL Estimated GFR (MDRD) (>89) Glucose (70-100) mg/dL POC Whole Bld Glucose 378 H 396 H 441 H (70 - 100) mg/dL Calcium (8.5-10.3) mg/dL Total Bilirubin (0.2-1.0) mg/dL AST (10-42) IU/L ALT (10-60) IU/L Alkaline Phosphatase (42-121) IU/L Total Protein (6.7-8.2) g/dL Albumin (3.2-5.5) g/dL Globulin (2.1-4.2) g/dL Albumin/Globulin Ratio (1.0-2.2) - Diagnostic Imaging Diagnostic Imaging Results: positive: Final report reviewed Diagnostic Imaging Comments: Echocardiogram: Assessment/Plan - Problem List (1) Bacteremia due to Gram-negative bacteria Impression: Preliminary blood culture results taken in ED show gram negative bacilli. Upon chart review, patient has a history of MRSA, nasal swab negative. No need for contact precautions. Plan: IV Levofloxacin, pending sensitivities. (2) Urinary tract infection Impression: Patient denies previous incontinence, but over the past week has had frequency, nocturia, and incontinence. Fever, chills and weakness at home per patient report. Urine cultures and sensitivities are resulted and show the greatest sensitivity to Levofloxacin, which will be ideal for out patient use. Plan: changed IV antibiotic to Levofloxacin to begin 05/17, will change to PO form upon discharge. Qualifiers: Urinary tract infection type: site unspecified Hematuria presence: without hematuria Qualified Code(s): N39.0 - Urinary tract infection, site not specified Qualifiers: Urinary tract infection type: site unspecified Hematuria presence: without hematuria Qualified Code(s): N39.0 - Urinary tract infection, site not specified (3) Fall Impression: Patient admits to frequent falls that started back about 2 years ago. This time she sustained a head injury as a result of her fall the night before the EMS was called. Patient states that she will fall at home, and the EMS will come to her home and assist her back to the chair as she typically refuses ED admissions. Plan: Continue with fall precautions to prevent injury. PT ordered. Qualifiers: Encounter type: initial encounter Qualified Code(s): W19.XXXA - Unspecified fall, initial encounter (4) Weakness Impression: Patient admits to falling that has been getting progressively worse since her noted GA over 2 years ago. Will be doing further work up on CHF as a possible causative etiology. Plan: PT/OT evaluation, fall precautions and encourage patient to be in chair for meals. (5) T2DM (type 2 diabetes mellitus) Impression: Patient admits to being a diabetic for at least the past 20 years. She has morbid obesity, which complicates this picture. She has mild insulin resistance. There has been some discrepancy as to patient's home dose of long- acting insulin. Blood glucose has been uncontrolled since admission. PO agents on hold as per hospital protocol, in the event of an emergent scan. Plan: Lantus adjustments made. AC Aspart added, in addition to SSI Monitor bedside blood glucose, check HgA1C. Qualifiers: Diabetes mellitus complication status: with circulatory complication Diabetes mellitus complication detail: with other circulatory complications Diabetes mellitus oil heaterman insulin use: with oil heaterman use Qualified Code(s) : E11.59 - Type 2 diabetes mellitus with other circulatory complications; Z79.4 - assisted (current) use of insulin; Z79.4 - assisted (current) use of insulin ; Z79.4 - assisted (current) use of insulin; Z79.4 - terminal manager (current) use of insulin (6) Congestive heart failure Impression: History of GA, likely leading to CHF. Last echocardiogram in [facility] was completed on 06/23/2015 and was found to have a meager EF of only 25-30%, mild concentric LV hypertrophy w/severe global hypokinesis. She utilizes chronic oxygen use, exhibits orthopnea, and has profound exercise intolerance. Plan: Continue medical management, and repeat Echocardiogram, which shows improvement in EF of 35% since last echo in 06/2015. Qualifiers: Congestive heart failure type: unspecified congestive heart failure type Congestive heart failure chronicity: acute Qualified Code(s): I50.9 - Heart failure, unspecified (7) Dependence on supplemental oxygen Impression: Patient admits to home oxygen use for greater than 2 years, "after my heart attack". She also exhibits orthopnea, SOB with activity. Plan: Continued oxygen therapy. Nasal sprays for dryness, flonase for daily use. (8) Hypothyroidism Impression: Patient has a known history and is generally well controlled with home prescribed medication. TSH 2.69 on this admit. Plan: continue home Levothyroxine, check TSH in 5-6 weeks. Qualifiers: Hypothyroidism type: acquired Qualified Code(s): E03.9 - Hypothyroidism, unspecified
[2017-05-17] MEDS: FLUTICASONE NASAL SPRAY NAS SCH (10:16)
[2017-05-17] MEDS: INSULIN ASPART 300 UNIT/3 ML PEN SUBQ SCH ×7 (10:16→21:02)
[2017-05-17] MEDS: POLYETHYLENE GLYCOL 3350 17 GM PACKET PO SCH (10:17)
[2017-05-17] MEDS: ENOXAPARIN 40 MG/0.4 ML SYRINGE SUBQ SCH (10:17)
[2017-05-17] MEDS: INSULIN GLARGINE 300 UNIT/3 ML PEN SUBQ SCH ×2 (10:17→21:01)
[2017-05-17] MEDS: CARVEDILOL 3.125 MG TABLET PO SCH ×2 (10:17→21:00)
[2017-05-17] MEDS: FUROSEMIDE 40 MG TABLET PO SCH (10:17)
[2017-05-17] MEDS ORDERED: INSULIN ASPART 300 UNIT/3 ML PEN SUBQ SCH (12:00)
--- NOTE | 2017-05-17 12:00 | XRAY Report ---
SKULL SERIES: 05/17/2017 COMPARISON: Head CT 05/15/2017. INDICATION: Worsening swelling and bruising of the left forehead. TECHNIQUE: Three views of the skull. 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 There is mild opacification of the maxillary sinuses. No evidence of acute fracture. No radiopaque foreign body, apart from jewelry. IMPRESSION: CHRONIC-APPEARING SINUS DISEASE. NO OTHER ACUTE BONE FINDINGS. JOB #: [id number] EXT JOB #: [id number] [facility]
[2017-05-17] MEDS: SODIUM CHLORIDE 0.65% NASAL SPRAY NAS SCH (12:44)
[2017-05-17] MEDS: POTASSIUM CHLORIDE 20 MEQ TABLET PO SCH (12:44)
[2017-05-17] MEDS: PARoxetine 10 MG TABLET PO SCH (21:00)
[2017-05-18] MEDS ORDERED: INSULIN GLARGINE 300 UNIT/3 ML PEN SUBQ SCH (00:10)
[2017-05-18] MEDS: HYDROcod/ACETAM 5/325 MG TABLET PO PRN (04:02)
[2017-05-18 06:14] LABS: ALBUMIN/GLOBULIN RATIO 0.8 (1.0-2.2); BILIRUBIN,TOTAL 0.6 mg/dL (0.2-1.0); CALCIUM 9.4 mg/dL (8.5-10.3); MAGNESIUM 1.6 mg/dL (1.7-2.8); POTASSIUM 3.5 mmol/L (3.5-5.0); TOTAL PROTEIN 6.7 g/dL (6.7-8.2)
[2017-05-18] MEDS: SODIUM CHLORIDE FLUSH 0.9% 10 ML SYRINGE IVP SCH (06:35)
[2017-05-18] MEDS: PANTOPRAZOLE 40 MG TABLET PO SCH (06:35)
[2017-05-18] MEDS: LEVOTHYROXINE 125 MCG TABLET PO SCH (06:35)
[2017-05-18] MEDS: CARVEDILOL 3.125 MG TABLET PO SCH (08:44)
[2017-05-18] MEDS: POLYETHYLENE GLYCOL 3350 17 GM PACKET PO SCH (08:44)
[2017-05-18] MEDS: POTASSIUM CHLORIDE 20 MEQ TABLET PO SCH (08:44)
[2017-05-18] MEDS: FUROSEMIDE 40 MG TABLET PO SCH (08:44)
[2017-05-18] MEDS: SODIUM CHLORIDE 0.65% NASAL SPRAY NAS SCH (08:44)
[2017-05-18] MEDS: FLUTICASONE NASAL SPRAY NAS SCH (08:45)
[2017-05-18] MEDS: INSULIN ASPART 300 UNIT/3 ML PEN SUBQ SCH ×4 (08:45→11:53)
[2017-05-18] MEDS: ENOXAPARIN 40 MG/0.4 ML SYRINGE SUBQ SCH (08:45)
--- NOTE | 2017-05-18 10:31 | Discharge Plan ---
Discharge Plan Disposition: 01 Home, Self Care Condition: Good Prescriptions: Fluticasone [Flonase] 1 sprays YANIRA DAILY #6 bottle Lactobacillus Acidophilus [Acidophilus Lactobacilli] 1 each PO DAILY 16 Days # 16 capsule Levofloxacin [Levaquin] 250 mg PO DAILY 8 Days #8 tablet Diet: Diabetic Activity Restrictions: Activity as Tolerated Shower Restrictions: No Driving Restrictions: No Assistance Devices: Walker Weight Bearing: Full Weight Additional Instructions or Follow Up instructions: You came to the hospital after a fall, with injury to your left upper forehead. A skull x-ray was negative for a fracture. You complained of chronic sinus congestion that may be related to your oxygen use, but over the past several weeks she has had more drainage to the back of her throat leading to a cough. I gave you a new nasal spray that seems to be improving your symptoms and recommend that you keep up with this. A urine sample was collected, cultures grew out, so you will need to continue with an additional 8 days of a daily antibiotic. I also added a probiotic since this antibiotic can wipe out the good bacteria in your GI tract. Blood cultures were also collected and do suggest an infection that could be in your blood stream, but the final is still pending. I will be calling you personally if your antibiotic treatment will be changed. An echocardiogram was completed and showed an improvement from your previous test, so we recommend that you stay on your current medications as usual. I know your blood sugars were very high during your stay, but we believe this is related to your infection ands should continue to normalize at home. I reached out to our [facility] for diabetes medication financial assistance. She will be reviewing your case and you should expect a call from a lady named Malu Paulino, who is a diabetic nurse educator. Please see your PCP early next week as a follow up to this hospitalization. No Smoking: If you smoke, Please STOP! Call for help. Follow-up with: Flor Macario ARNP [Primary Care Provider] -
--- NOTE | 2017-05-18 10:49 | DISCHARGE SUMMARY ---
Discharge Summary Admit Date: 05/15/17 Discharge Date: 05/18/17 Discharging Provider: EMMA Recinos Primary Care Provider: Flor Macario Code Status: Attempt Resuscitation Condition at Discharge: Good Discharge Disposition: 01 Home, Self Care - DIAGNOSES Admission Diagnoses: Urinary tract infection, site not specified (N39.0) Weakness (R53.1) Unspecified fall, initial encounter (W19.XXXA) Type 2 diabetes mellitus without complications (E11.9) Acute on chronic systolic (congestive) heart failure (I50.23) Dependence on supplemental oxygen (Z99.81) Hypothyroidism, unspecified (E03.9) Discharge Diagnoses with Status of Each Condition: UTI (urinary tract infection) (N39.0) -ongoing, expected to resolve. Generalized weakness (R53.1) Fall (W19.XXXA) -ongoing, chronic. Diabetes mellitus (E11.9) -ongoing, controlled. Acute on chronic systolic (congestive) heart failure (I50.23)- ongoing, chronic , controlled with medications. Supplemental oxygen dependent (Z99.81) -ongoing, chronic. Hypothyroidism (E03.9)-ongoing, controlled. - HPI History of Present Illness: Deni Payne is an 81 year old morbidly obese female with a past medical history diabetes mellitus type 2, [place], CHF, tobacco abuse, chronic oxygen use and a history of frequent falls x2 years. The patient allowed the EMS drivers to bring her to the hospital since last night she fell and hit her left forehead , which caused her to have left eye lid swelling, bruising and discomfort. She also reports recent generalized weakness, fever with chills, a new tremor noted mostly to RUE. She admits to having foul smelling urine for the past week. She has chronic sinus congestion that she relates to her oxygen use, but over the past several weeks she has had more drainage to the back of her throat leading to a cough. On the ambulance ride to the ED she was found to be febrile en route. UA was collected, cultures pending. - HOSPITAL COURSE Hospital Course: Patient sustained a fall, with injury to left upper forehead. A skull x-ray was negative for a fracture. Patient complained of chronic sinus congestion that may be related to chronic oxygen use, but over the past several weeks she has had more drainage to the back of her throat leading to a cough. Recommended a Flonase nasal spray and Neti-pot cleansing daily. A urine sample was collected, cultures grew out, so an additional 8 days of a daily antibiotic was prescribed. A probiotic was added to regain normal GI tract jennie. Blood cultures were also collected and the final sensitivities are not resulted. An echocardiogram was completed and showed an improvement from your previous test, so we recommend current medications as usual. Patient was hyperglycemic during her stay, but this normalized by the time of discharge. PT/OT therapy worked with patient and she was back to baseline with very little ambulation/pivot transfers and the use of assistive devices. Patient will continue with almost daily home care through a program in her community. I reached out [place] [facility] [place] medication [place] assistance. She will be reviewing the case and a lady named Malu Paulino, who is a diabetic nurse educator will call patient for recommendations. The patient was advised to see her PCP early next week as a follow up to this hospitalization. She was transported in stable condition home with disabled son and care-givers. - ALLERGIES Allergies/Adverse Reactions: Allergies Allergy/AdvReac Type Severity Reaction Status Date / Time No Known Drug Allergies Allergy Verified 11/24/16 23:30 - MEDICATIONS Home Medications: Ambulatory Orders Medication Instructions Recorded Confirmed Lisinopril 20 mg ORAL DAILY 06/23/14 05/15/17 Lovastatin [Altoprev] 40 mg ORAL QPM 06/23/14 05/15/17 Hydrochlorothiazide 25 mg PO DAILY 06/22/15 05/15/17 Insulin Regular, Human [Novolin R] 0 - 40 units SUBQ TIDWM 06/22/15 05/15/17 PARoxetine [Paxil] 40 mg PO QPM 06/22/15 05/15/17 Carvedilol 3.125 mg PO BID 01/29/16 05/15/17 Furosemide 40 mg PO DAILY 01/29/16 05/15/17 Insulin Detemir [Levemir Flextouch] 32 units SUBQ BID 05/15/17 05/15/17 Levothyroxine Sodium 175 mcg PO QDAC 05/15/17 05/15/17 Potassium Chloride [Klor-Con M20] 20 meq PO DAILY 05/15/17 05/15/17 Fluticasone [Flonase] 1 sprays YANIRA DAILY #6 bottle 05/18/17 Lactobacillus Acidophilus 1 each PO DAILY 16 Days #16 capsule 05/18/17 [Acidophilus Lactobacilli] Levofloxacin [Levaquin] 250 mg PO DAILY 8 Days #8 tablet 05/18/17 - PHYSICAL EXAM AT DISCHARGE General Appearance: positive: No acute distress, Alert Eyes Bilateral: positive: Normal inspection, PERRL ENT: positive: ENT inspection nml, Pharynx nml, No signs of dehydration Neck: positive: Nml inspection, Thyroid nml, No JVD, Trachea midline Respiratory: positive: Chest non-tender, No respiratory distress, Other ( diminished) Cardiovascular: positive: Regular rate & rhythm, No gallop, Systolic murmur Peripheral Pulses: positive: 1+ Abdomen: positive: Non-tender, Hepatomegaly, Abnml bowel sounds, Other (rounded , obese) Back: positive: Nml inspection Skin: positive: Color nml, No rash, Warm, Dry Extremities: positive: Non-tender, Full ROM, Nml appearance, No pedal edema ( TEDS) Neurologic/Psychiatric: positive: Oriented x3, CN's nml (2-12), Motor nml, Weakness, Sensory loss, Depressed mood/affect Reflexes: Bicep (R): 3+, Bicep (L): 3+ - LABS Result Diagrams: 05/17/17 05:19 05/18/17 05:36 - DIAGNOSTIC IMAGING Diagnostic Imaging Results: Final report reviewed Diagnostic Imaging Results Comments: 2-view chest x-ray 05/15/17: FINDINGS: Lungs/Pleura: No focal opacities evident. No pleural effusion. No pneumothorax. Normal volumes. Mediastinum: Cardiomegaly. Aortic atherosclerosis. IMPRESSION: 1. No acute disease. Right shoulder x-ray 05/15/17: FINDINGS: Bones: No acute fracture or bony lesion. Type I acromion. Degenerative spurring. Joints: Narrowing of the right acromioclavicular right glenohumeral joint. Dislocation. Narrowing of the subacromial joint space. Soft tissues: The visualized hemithorax is unremarkable. No soft tissue swelling. IMPRESSION: 1. No acute osseous abnormalities. Normal alignment. 2. Degenerative changes of the right shoulder. Head CT 05/15/17: FINDINGS: Parenchyma: No intraparenchymal hemorrhage. No evidence of mass, midline shift, or CT findings of infarction. Landa-white differentiation is distinct. Remote right basal ganglia infarct versus prominent perivascular space, stable. Extraaxial Spaces: Normal for age. No subdural or epidural collections identified. Ventricles: Normal in size and position. Sinuses and Orbits: Chronic bilateral maxillary sinus disease. Chronic left sphenoid sinus disease. Bilateral mastoid effusions, right greater than left. Bones: No evidence of fracture or calvarial defect. Other: Changes are seen from bilateral lung surgery. Vascular calcifications are noted. Frontal scalp edema and hematoma with the hematoma measuring up to 1.7 cm. IMPRESSION: 1. No acute intracranial abnormality is identified. 2. No acute fracture. 3. Frontal scalp edema and scalp hematoma. Cervical spine 05/15/17: FINDINGS: Alignment: Straightening of the normal cervical lordosis. Anterolisthesis of C3 on C4, stable. Retrolisthesis of C5 on C6, stable. Articular facets are normally aligned. Occipital condyles are normal on the lateral masses of C1. Bones: No acute fracture or bony lesion. Degenerative osteophyte formation. Interspace Levels/Facets: C1-C2: Degenerative changes of the anterior arch of C1 and the dens. C2-C3: Cervical facet arthropathy. Mild right neural foraminal narrowing. C3-C4: Disk osteophyte complex. Uncovertebral hypertrophy. Facet arthropathy. Moderate to severe bilateral neural foraminal narrowing. C4-C5: Disk space narrowing. Broad based posterior disk osteophyte complex and uncovertebral hypertrophy. Facet arthropathy. Moderate bilateral neural foraminal narrowing. C5-C6: Disk space narrowing. Osteophyte formation. Broad-based posterior disk osteophyte complex. Uncovertebral hypertrophy. Facet arthropathy. Moderate left and severe right neural foraminal narrowing. C6-C7: Disk space narrowing. Facet arthropathy. Posterior disk osteophyte complex and uncovertebral hypertrophy. Moderate left neural foraminal narrowing. C7-T1: Disk space narrowing. Facet arthropathy. Mild bilateral neural foraminal narrowing. Musculature: Normal. No fatty atrophy. Other: The paravertebral and prevertebral soft tissues are unremarkable. Lung apices are clear. Vascular calcifications are noted. Visualized thyroid gland is unremarkable. No enlarged cervical lymph nodes. Airways are clear. Small bilateral mastoid effusions are seen, right greater than left. Chronic bilateral maxillary and left sphenoid sinus disease is seen. Included portion of brain parenchyma is unremarkable. IMPRESSION: 1. No acute cervical spine abnormalities are identified. 2. Multilevel intervertebral disk degenerative changes of the cervical spine greatest at C5-C6 and C6-C7. 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 There is mild opacification of the maxillary sinuses. No evidence of acute fracture. No radiopaque foreign body, apart from jewelry. IMPRESSION: CHRONIC-APPEARING SINUS DISEASE. NO OTHER ACUTE BONE FINDINGS. Echocardiogram preliminary report 05/17/17: Moderate to severe LV enlargement. Mild to moderate concentric LV hypertrophy. Overall LV systolic function is moderately impaired with an EF of 35-40%. Prior EF was 25-30%. There is moderate global hypokinesis of LV contractility. Impairted relaxation consistent with Grade I diastolic dysfunction. There are regional wall motion abnormalities. The RV size is normal, systolic function is normal. - FOLLOW UP Follow Up: I reached out to our [facility] for diabetes medication financial assistance. She will be reviewing your case and you should expect a call from a lady named Malu Paulino, who is a diabetic nurse educator. Please see your PCP early next week as a follow up to this hospitalization. - TIME SPENT Time Spent in Discharge (Minutes): 60
[2017-05-18 11:26] VITALS: BP 134/43
[2017-05-18] MEDS ORDERED: FLU VACCINE TS 2017-2018 45 MCG/0.5 ML SYRINGE IM ONE (17:00)
== END 2017-05-18 14:42 | disposition home or self-care (01) | DRG 689 ==
LOC: EDUNIT# → ED 10:37 → MS2 15:13
PROVIDERS: ADMIT Nurse Practitioner; ATTEND Nurse Practitioner
DX: N39.0 Urinary tract infection, site not specified (principal); S00.03XA Contusion of scalp, initial encounter; I50.23 Acute on chronic systolic (congestive) heart failure; M25.511 Pain in right shoulder; R09.02 Hypoxemia; I10 Essential (primary) hypertension; E11.9 Type 2 diabetes mellitus without complications; Z68.42 Body mass index [BMI] 45.0-49.9, adult; R78.81 Bacteremia; E11.65 Type 2 diabetes mellitus with hyperglycemia; E03.9 Hypothyroidism, unspecified; S05.11XA Contusion of eyeball and orbital tissues, right eye, initial encounter; W19.XXXA Unspecified fall, initial encounter; J32.9 Chronic sinusitis, unspecified; I11.0 Hypertensive heart disease with heart failure; E66.01 Morbid (severe) obesity due to excess calories; E11.59 Type 2 diabetes mellitus with other circulatory complications; E88.81 Metabolic syndrome and other insulin resistance; E78.00 Pure hypercholesterolemia, unspecified; I25.10 Atherosclerotic heart disease of native coronary artery without angina pectoris; F32.9 Major depressive disorder, single episode, unspecified; F41.9 Anxiety disorder, unspecified; I25.2 Old myocardial infarction; Z99.81 Dependence on supplemental oxygen; Z87.891 Personal history of nicotine dependence; Z91.81 History of falling; Z79.4 Long term (current) use of insulin; Z85.41 Personal history of malignant neoplasm of cervix uteri; Z86.14 Personal history of Methicillin resistant Staphylococcus aureus infection
CPT/HCPCS: 36415; 70260; 70450; 71020; 72125; 80048; 80053; 81001; 81003; 83036; 83605; 83735; 84100; 84443; 85025; 87040; 87086; 87205; 87640; 93306; 96361; 96365; 99284; 99285

== ENCOUNTER 2017-12-25 17:50 | Outpatient (CLI) | payer MEDICARE | END 2017-12-25 17:51 | disposition critical access hospital (66) | LOC: EMS 17:50 | PROVIDERS: ATTEND Surgery | DX: R53.1 Weakness (principal) | CPT/HCPCS: A0425; A0429 ==

== ENCOUNTER 2017-12-25 18:27 | Inpatient (IN) | payer MEDICARE ==
--- NOTE | 2017-12-25 19:47 | ED Physician Documentation ---
PD HPI FOCAL NEURO - Stated complaint Stated Complaint: WEAKNESS - Chief complaint Chief Complaint: General - History obtained from History obtained from: Patient - History of Present Illness Timing - onset: How many days ago (2-3) Timing - duration: Days (2-3) Timing - details: Abrupt onset, Still present (She had onset of chills, weakness , lower abd cramping pains, and smelly urine starting 2-3 days ago. General weakness with falls Sunday and today. Unable to get out of bed herself as she usually does, and family unable to help her due to obesity. She has felt chills , nausea, and has noted elevated sugars to 200s, which is unusual for her.) Severity of deficit: Moderate Weakness: Other (generalized) Numbness: No: Other Associated symptoms: Nausea / vomiting, Fall, Fever (the past 2 days subjectively). No: Head injury, Chest pain, Back pain Baseline status: positive: A&OX3, ambulatory, indep Similar symptoms before: Has not had sx before Recently seen: Not recently seen Review of Systems Constitutional: reports: Fever, Chills, Myalgias, Fatigue Nose: denies: Rhinorrhea / runny nose, Congestion Throat: denies: Sore throat Cardiac: denies: Chest pain / pressure Respiratory: denies: Dyspnea, Cough GI: reports: Abdominal Pain (lower abd), Nausea. denies: Vomiting, Constipation , Diarrhea : reports: Frequency Skin: denies: Rash, Lesions Neurologic: reports: Generalized weakness. 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 (history of cervical cancer when pt was in her 30's.) : Incontinence (new, since recent infection.), Nocturia, Frequency (on chronic diuretic.) HEENT: Chronic sinusitis, Chronic hearing loss Psych: Depression (paxil), Anxiety Musculoskeletal: Fatigue (sleepy during the day.) Derm: Other drug resistant infections (history of MRSA) - Past Surgical History Past Surgical History: Yes /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: Hysterectomy HEENT: Cataracts, Tonsil/Adenoidectomy - Present Medications Home Medications: Ambulatory Orders Medication Instructions Recorded Confirmed Lisinopril 20 mg ORAL DAILY 06/23/14 05/15/17 Lovastatin [Altoprev] 40 mg ORAL QPM 06/23/14 05/15/17 Hydrochlorothiazide 25 mg PO DAILY 06/22/15 05/15/17 Insulin Regular, Human [Novolin R] 0 - 40 units SUBQ TIDWM 06/22/15 05/15/17 PARoxetine [Paxil] 40 mg PO QPM 06/22/15 05/15/17 Carvedilol 3.125 mg PO BID 01/29/16 05/15/17 Furosemide 40 mg PO DAILY 01/29/16 05/15/17 Insulin Detemir [Levemir Flextouch] 32 units SUBQ BID 05/15/17 05/15/17 Levothyroxine Sodium 175 mcg PO QDAC 05/15/17 05/15/17 Potassium Chloride [Klor-Con M20] 20 meq PO DAILY 05/15/17 05/15/17 Fluticasone [Flonase] 1 sprays YANIRA DAILY #6 bottle 05/18/17 Lactobacillus Acidophilus 1 each PO DAILY 16 Days #16 capsule 05/18/17 [Acidophilus Lactobacilli] Levofloxacin [Levaquin] 250 mg PO DAILY 8 Days #8 tablet 05/18/17 - Allergies Allergies/Adverse Reactions: Allergies Allergy/AdvReac Type Severity Reaction Status Date / Time No Known Drug Allergies Allergy Verified 11/24/16 23:30 - Living Situation Living Situation: reports: With family Living Arrangement: reports: At home - Social History Does the pt smoke?: No Smoking Status: Former smoker Does the pt drink ETOH?: No Does the pt have substance abuse?: No - Family History Family history: reports: Non contributory - Immunizations Immunizations are current?: Yes - POLST Patient has POLST: No POLST Status: Full Code PD ED PE NORMAL - Vitals Vital signs reviewed: Yes - General General: Alert and oriented X 3, Well developed/nourished - HEENT HEENT: Ears normal, Pharynx benign. No: Moist mucous membranes - Neck Neck: Supple, no meningeal sign, No adenopathy - Cardiac Cardiac: RRR, No murmur - Respiratory Respiratory: Clear bilaterally - Abdomen Abdomen: Normal bowel sounds, Soft, Non distended, No organomegaly, Other ( tender without guarding suprapubic area. ) - Female Female : Deferred - Rectal Rectal: Deferred - Back Back: No CVA TTP - Derm Derm: Normal color, Warm and dry - Extremities Extremities: No tenderness to palpate, Normal ROM s pain, No edema, No calf tenderness / cord - Neuro Neuro: Alert and oriented X 3, No motor deficit, Normal speech Eye Opening: Spontaneous Motor: Obeys Commands Verbal: Oriented GCS Score: 15 - Psych Psych: Normal mood Results - Vitals Vitals: Vital Signs - 24 hr 12/25/17 12/25/17 12/25/17 18:30 19:56 20:21 Temperature 37.1 C Heart Rate 86 84 80 Respiratory 16 22 18 Rate Blood Pressure 106/37 L 133/58 H O2 Saturation 95 94 12/25/17 22:14 Temperature 37.4 C Heart Rate 83 Respiratory 22 Rate Blood Pressure 118/53 L O2 Saturation 94 Oxygen O2 Source [Without Activity] Nasal cannula O2 Source Room air - Labs Labs: Laboratory Tests 12/25/17 12/25/17 12/25/17 20:19 20:19 20:19 WBC 18.7 H RBC 3.68 L Hgb 11.4 L Hct 33.8 L MCV 91.9 MCH 30.9 MCHC 33.6 RDW 13.2 Plt Count 301 MPV 7.6 L Neut # (Auto) 15.4 H Lymph # (Auto) 1.4 L [place] # (Auto) 1.8 H Eos # (Auto) 0.0 Baso # (Auto) 0.1 Absolute Nucleated RBC 0.01 Nucleated RBC % 0.0 Sodium 130 L Potassium 4.3 Chloride 89 L Carbon Dioxide 30 Anion Gap 11.0 BUN 22 H Creatinine 1.1 H Estimated GFR (MDRD) 47 L Glucose 227 H Lactic Acid Calcium 8.8 Magnesium 1.4 L Total Bilirubin 1.3 H AST 63 H ALT 57 Alkaline Phosphatase 226 H Troponin I B-Natriuretic Peptide 156 H Total Protein 6.6 L Albumin 2.9 L Globulin 3.7 Albumin/Globulin Ratio 0.8 L Lipase 26 Urine Color Urine Clarity Urine pH Ur Specific [place] Urine Protein Urine Glucose (UA) Urine Ketones Urine Occult Blood Urine Nitrite Urine Bilirubin Urine Urobilinogen Ur Leukocyte Esterase Urine RBC Urine WBC Urine WBC Clumps Ur Squamous Epith Cells Urine Bacteria Ur Microscopic Review Urine Culture Comments Serum Ketones NEGATIVE 12/25/17 12/25/17 12/25/17 20:19 20:19 21:10 WBC RBC Hgb Hct MCV MCH MCHC RDW Plt Count MPV Neut # (Auto) Lymph # (Auto) [place] # (Auto) Eos # (Auto) Baso # (Auto) Absolute Nucleated RBC Nucleated RBC % Sodium Potassium Chloride Carbon Dioxide Anion Gap BUN Creatinine Estimated GFR (MDRD) Glucose Lactic Acid 1.2 Calcium Magnesium Total Bilirubin AST ALT Alkaline Phosphatase Troponin I < 0.04 B-Natriuretic Peptide Total Protein Albumin Globulin Albumin/Globulin Ratio Lipase Urine Color YELLOW Urine Clarity HAZY Urine pH 5.5 Ur Specific [place] 1.015 Urine Protein 30 H Urine Glucose (UA) NEGATIVE Urine Ketones NEGATIVE Urine Occult Blood TRACE-LYSE Urine Nitrite NEGATIVE Urine Bilirubin NEGATIVE Urine Urobilinogen 0.2 (NORMAL) Ur Leukocyte Esterase LARGE H Urine RBC 0-5 Urine WBC >25 H Urine WBC Clumps PRESENT Ur Squamous Epith Cells FEW Squamous Urine Bacteria Many H Ur Microscopic Review INDICATED Urine Culture Comments INDICATED Serum Ketones - Rads (name of study) chest xray Radiology: Prelim report reviewed, EMP read contemporaneously (no infiltrates) PD MEDICAL DECISION MAKING - ED course Complexity details: considered differential (Her symptoms are suggestive of infection (weakness, elevated sugar, reported fever, leukocytosis). She does not seem septic (normal lactate and no fever here, but does have relatively low BP). Her urine is not overwhelmingly convincing but does correlate with her symtpoms (dysuria and flank/suprapubic pains, nausea). ), d/w patient - Sepsis Event Vital Signs: Vital Signs - 24 hr 12/25/17 12/25/17 12/25/17 18:30 19:56 20:21 Temperature 37.1 C Heart Rate 86 84 80 Respiratory 16 22 18 Rate Blood Pressure 106/37 L 133/58 H O2 Saturation 95 94 12/25/17 22:14 Temperature 37.4 C Heart Rate 83 Respiratory 22 Rate Blood Pressure 118/53 L O2 Saturation 94 Oxygen O2 Source [Without Activity] Nasal cannula O2 Source Room air Departure - Departure Disposition: [facility] DC/Xfer Clinical Impression: Generalized weakness, Falling episodes, Obesity, Diabetes Leukocytosis Qualifiers: Leukocytosis type: unspecified Qualified Code(s): D72.829 - Elevated white blood cell count, unspecified UTI (urinary tract infection) Qualifiers: Urinary tract infection type: acute pyelonephritis Qualified Code(s): N10 - Acute pyelonephritis Condition: Stable
[2017-12-25] MEDS ORDERED: ALBUTEROL NEB 2.5 MG/3 ML INH STA (20:09)
[2017-12-25 20:33] LABS: KETONES, SERUM (ACETEST) NEGATIVE (NEGATIVE)
[2017-12-25 20:43] LABS: BASOPHILS # (AUTO) 0.1 10^3/uL (0.0-0.1); BASOPHILS % (AUTO) 0.5 %; EOSINOPHILS % (AUTO) 0.2 %; HGB - HEMOGLOBIN 11.4 g/dL (12.0-16.0); LYMPHOCYTES # (AUTO) 1.4 10^3/uL (1.5-3.5); LYMPHOCYTES % (AUTO) 7.4 %; MEAN CORPUSCULAR HEMOGLOBIN 30.9 pg (27.0-31.0); MEAN CORPUSCULAR HGB CONC 33.6 g/dL (32.0-36.0); MEAN CORPUSCULAR VOLUME 91.9 fL (81.0-99.0); MEAN PLATELET VOLUME 7.6 fL (7.9-10.8); MONOCYTES # (AUTO) 1.8 10^3/uL (0.0-1.0); MONOCYTES % (AUTO) 9.6 %; NEUTROPHILS # (AUTO) 15.4 10^3/uL (1.5-6.6); NEUTROPHILS % (AUTO) 82.3 %; PLT - PLATELET COUNT 301 10^3/uL (130-450); RED BLOOD COUNT 3.68 10^6/uL (4.20-5.40); RED CELL DISTRIBUTION WIDTH 13.2 % (12.0-15.0); WHITE BLOOD COUNT 18.7 x10^3/uL (4.8-10.8)
--- NOTE | 2017-12-25 20:52 | XRAY Report ---
Procedure Date: 12/25/2017 Accession Number: [id number] / [id number] Procedure: XR - Chest 1 View X-Ray CPT Code: 01751 FULL RESULT: EXAM: CHEST RADIOGRAPHY EXAM DATE: 12/25/2017 08:25 PM. CLINICAL HISTORY: Dyspnea. COMPARISON: CHEST 2 VIEW PA/LAT 05/15/2017. TECHNIQUE: 1 view. FINDINGS: Lungs/Pleura: No consolidative process or focal pneumonia. Negative for edema and pneumothorax. Mediastinum: Heart size is normal. There is moderate aortic arch atherosclerotic calcification, unchanged. Mild aortic tortuosity. Other: None. IMPRESSION: 1. Negative for an acute cardiopulmonary abnormality. RADIA
[2017-12-25 21:18] LABS: BILIRUBIN,URINE NEGATIVE (NEGATIVE); GLUCOSE, URINE (UA) NEGATIVE (NEGATIVE); KETONES,URINE (UA) NEGATIVE (NEGATIVE); LEUKOCYTE ESTERASE, URINE LARGE (NEGATIVE); NITRITE,URINE NEGATIVE (NEGATIVE); OCCULT BLOOD,URINE TRACE-LYSE (NEGATIVE); PH,URINE 5.5 PH (5.0-7.5); PROTEIN,URINE 30 mg/dL (NEGATIVE); UROBILINOGEN,URINE 0.2 (NORMAL) E.U./dL (NORMAL)
[2017-12-25 21:19] LABS: CLARITY,URINE HAZY (CLEAR)
[2017-12-25 21:31] LABS: BACTERIA,URINE Many /HPF (None Seen); RBC,URINE 0-5 /HPF (0-5); SQUAMOUS EPITHELIAL CELL,UR FEW Squamous (<= Few); WBC CLUMPS,URINE PRESENT
[2017-12-25 21:40] LABS: ALBUMIN 2.9 g/dL (3.2-5.5); ALBUMIN/GLOBULIN RATIO 0.8 (1.0-2.2); ALKALINE PHOSPHATASE 226 IU/L (42-121); ALT ALANINE AMINOTRANSFERASE 57 IU/L (10-60); AST ASPARTATE AMINOTRANSFERASE 63 IU/L (10-42); BILIRUBIN,TOTAL 1.3 mg/dL (0.2-1.0); BUN - BLOOD UREA NITROGEN 22 mg/dL (6-20); CALCIUM 8.8 mg/dL (8.5-10.3); CARBON DIOXIDE - CO2 30 mmol/L (21-32); CHLORIDE 89 mmol/L (101-111); CREATININE 1.1 mg/dL (0.4-1.0); GFR - MDRD 47 (>89); GLUCOSE 227 mg/dL (70-100); LIPASE 26 U/L (22-51); MAGNESIUM 1.4 mg/dL (1.7-2.8); SODIUM 130 mmol/L (135-145); TOTAL PROTEIN 6.6 g/dL (6.7-8.2)
[2017-12-25] MEDS ORDERED: cefTRIAXone 1 GM in SODIUM CHLORIDE 0.9% MINIBAG 100 ML IV STA (21:55)
[2017-12-25] MEDS ORDERED: SODIUM CHLORIDE FLUSH 0.9% 10 ML SYRINGE IVP PRN (22:32)
[2017-12-25] MEDS ORDERED: TEMAZEPAM 15 MG CAPSULE PO PRN (22:32)
[2017-12-26] MEDS: MAGNESIUM SULFATE 2 GRAM 2 GM/50 ML BAG IV SCH ×2 (00:54→01:47)
[2017-12-26] MEDS: NS W/20 MEQ KCL 1,000 ML IV SCH ×2 (00:54→10:43)
--- NOTE | 2017-12-26 01:09 | HISTORY & PHYSICAL EXAMINATION ---
Chief Complaint - Chief Complaint Chief Complaint: The patient says she has been tired and shaky with a decreased appetite History of Present Illness - Admitted From Admitted From:: Home - History Obtained From History obtained from: Patient, ED physician - History of Present Illness HPI Comment/Other: Ms. Deni Payne is a very pleasant 82-year-old female who has noted a decrease in her energy levels with an associated decreased oral intake of both food and fluids which is significant for her as she is morbidly obese. She also says that she has been shaky and noted that her urine began smelling stronger about 3 days ago. The patient has stumbled a couple of times and due to her morbid obesity her family is unable to care for her. Patient is diabetic but well controlled and notes that her blood sugars have been elevated over the last several days as well. She has a history of congestive heart failure and a BNP done on admission was only very mildly elevated at 156. Chemistries found the patient to be slightly hyponatremic with an elevated creatinine and low magnesium levels. She was also found to be malnourished with a total protein of 6.6 and an albumin of 2.9 despite her morbid obesity. She was brought into the emergency department where she was found to have both bacteriuria and pyuria and will be admitted with a diagnosis of acute complicated urinary tract infection. History - Past Medical History Cardiovascular: reports: Congestive heart failure, Hypertension, High cholesterol, Coronary artery disease, DE Respiratory: reports: Shortness of breath, Other (chronic oxygen use, post DE.) Endocrine/Autoimmune: reports: Type 2 diabetes, HyPOthyroidism GI: reports: None WASHER CUTTER: reports: Other (history of cervical cancer when pt was in her 30's.) : reports: Incontinence (new, since recent infection.), Nocturia, Frequency ( on chronic diuretic.) HEENT: reports: Chronic sinusitis, Chronic hearing loss Psych: reports: Depression (paxil), Anxiety Musculoskeletal: reports: Fatigue (sleepy during the day.) Derm: reports: Other drug resistant infections (history of MRSA) MRSA Hx?: Yes - Past Surgical History /WASHER CUTTER: reports: Hysterectomy HEENT: reports: Cataracts, Tonsil/Adenoidectomy - Family & Social History Family History: Mother: , Alzheimer's Disease, Father: , Sister : , Other family: Family History Comment/Other: The patient's father at age 40 of pulmonary embolism and the patient's mother at age 84 of complications of Alzheimer' s disease. The patient had a daughter with Down syndrome who recently at age 59, and denies any history of cancer or heart disease in the family. Her sister of a cerebral aneurysm. Living arrangement: At home Living Situation: With family - Substance History Use: Uses substance without health or social issues: NONE Abuse: Recurrent use of substance despite neg consequences: NONE Dependence: Experiences withdrawal or developed tolerances: NONE - POLST Patient has POLST: No POLST Status: Full Code Meds/Allgy - Home Medications Home Medications: Ambulatory Orders Medication Instructions Recorded Confirmed Lisinopril 20 mg ORAL DAILY 06/23/14 05/15/17 Lovastatin [Altoprev] 40 mg ORAL QPM 06/23/14 05/15/17 Hydrochlorothiazide 25 mg PO DAILY 06/22/15 05/15/17 Insulin Regular, Human [Novolin R] 0 - 40 units SUBQ TIDWM 06/22/15 05/15/17 PARoxetine [Paxil] 40 mg PO QPM 06/22/15 05/15/17 Carvedilol 3.125 mg PO BID 01/29/16 05/15/17 Furosemide 40 mg PO DAILY 01/29/16 05/15/17 Insulin Detemir [Levemir Flextouch] 32 units SUBQ BID 05/15/17 05/15/17 Levothyroxine Sodium 175 mcg PO QDAC 05/15/17 05/15/17 Potassium Chloride [Klor-Con M20] 20 meq PO DAILY 05/15/17 05/15/17 Fluticasone [Flonase] 1 sprays YANIRA DAILY #6 bottle 05/18/17 Lactobacillus Acidophilus 1 each PO DAILY 16 Days #16 capsule 05/18/17 [Acidophilus Lactobacilli] Levofloxacin [Levaquin] 250 mg PO DAILY 8 Days #8 tablet 05/18/17 - Allergies Allergies/Adverse Reactions: Allergies Allergy/AdvReac Type Severity Reaction Status Date / Time No Known Drug Allergies Allergy Verified 11/24/16 23:30 Review of Systems - Constitutional Constitutional: reports: Fatigue, Malaise, Weakness, Poor appetite. denies: Fever, Chills - Eyes Eyes: denies: Pain, Irritation, Amaurosis, Blurred vision, Dipolpia - Ears, Nose & Throat Ears, Nose & Throat: reports: Hearing loss. denies: Ear pain, Hearing aids, Tinnitus, Vertigo, Nasal pain, Nosebleeds - Cardiovascular Cariovascular: reports: Decr. exercise tolerance. denies: Irregular heart rate , Palpitations, Chest pain, Edema, Syncope - Respiratory Respiratory: reports: SOB with exertion. denies: Cough, Sputum production, Wheezing, Snoring, Hemoptysis, Orthopnea - Gastrointestinal Gastrointestinal: denies: Abdominal pain, Abdominal distention, Constipation, Diarrhea, Change in bowel habits, Rectal bleeding - Genitourinary Genitourinary: reports: Dysuria, Frequency. denies: Urgency, Hematuria - Musculoskeletal Musculoskeletal: denies: Muscle pain, Back pain, Muscle aches, Stiffness - Integumentary Integumentary: denies: Rash, Pruritis, Lesions, Dryness - Neurological Neurological: reports: General weakness. denies: Focal weakness, Headache, Dizziness - Psychiatric Psychiatric: denies: Depression, Anxiety, Suicidal, Hallucinations - Endocrine Endocrine: denies: Polyuria, Polydypsia, Polyphagia - Hematologic/Lymphatic Hematologic/Lymphatic: denies: Anemia, Bruising, Petechiae, Lymphadenopathy - All Other Systems All Other Systems: reports: Reviewed and negative Exam - Vital Signs Reviewed Vital Signs: Yes Vital Signs: Vital Signs x48h Temp Pulse Pulse Resp BP BP Pulse Ox 12/26/17 00:35 37.2 C 87 20 119/41 L 93 12/25/17 23:20 88 22 121/77 95 - Physical Exam General Appearance: positive: No acute distress, Alert Eyes Bilateral: positive: Normal inspection, PERRL, EOMI, No lid inflammation, Conjunctivae nml, No scleral icterus ENT: positive: ENT inspection nml, Pharynx nml, No signs of dehydration Neck: positive: Nml inspection, Thyroid nml, No JVD, Trachea midline. negative : Thyromegaly Respiratory: positive: Chest non-tender, No respiratory distress, Breath sounds nml. negative: Wheezes, Rales, Rhonchi Cardiovascular: positive: Regular rate & rhythm, No murmur, No gallop Peripheral Pulses: positive: 1+ Abdomen: positive: Non-tender, No organomegaly, Nml bowel sounds, No distention. negative: Guarding, Rebound Back: positive: Nml inspection. negative: CVA tenderness (R), CVA tenderness (L ) Skin: positive: Color nml, No rash, Warm, Dry. negative: Cyanosis Extremities: positive: Non-tender, Full ROM, Nml appearance, Pedal edema, Other (morbid obesity) Neurologic/Psychiatric: positive: Oriented x3, CN's nml (2-12), Sensation nml, Mood/affect nml, Weakness. negative: Facial droop, Slurred/abnml speech, Depressed mood/affect Conclusion/Plan - Problem List (1) Complicated urinary tract infection Conclusion/Plan: The patient has an acute complicated urinary tract infection as evidenced by weakness with decreased appetite and decreased fluid intake. She has not recently been inpatient, used a fluoroquinolone, or travel, and so we will continue her on ceftriaxone IV once daily which may be converted over to a fluoroquinolone on discharge. She is weak and we will ask physical therapy to work with her. She also may be dehydrated as evidenced by an acute kidney injury. She will be admitted to the hospital, her comorbidities will be addressed, and we will correct her electrolyte abnormalities. (2) LILY (acute kidney injury) Conclusion/Plan: The patient's creatinine on admission was 1.1. She typically runs between 0.6 and 0.9. We will monitor her closely and gently rehydrate her. (3) Coronary artery disease Conclusion/Plan: Patient says that she thinks she had a heart attack and was diagnosed here at [facility] a year or 2 ago. In going through the records I find no confirmation of this on any of her previous admissions. Additionally, the patient has never exhibited an elevated troponin while here at [facility]. I will continue her on her home dosing of 81 mg aspirin daily. (4) Depression with anxiety Conclusion/Plan: The patient has a history of depression and anxiety and takes Paxil at home. We will continue this while she is inpatient. (5) Congestive heart failure Conclusion/Plan: The patient has a history of congestive heart failure and takes carvedilol, furosemide, lisinopril, and hydrochlorothiazide at home. An echocardiogram done showed an ejection fraction of 30-35% with global hypokinesis of the left ventricle. A BNP done on admission was only very slightly elevated and the patient does not appear to be in any type of fluid overload at this time. We will continue her on her home medication regimen and monitor her BNP as we rehydrate her.. Qualifiers: Qualified Code(s): I50.9 - Heart failure, unspecified (6) T2DM (type 2 diabetes mellitus) Conclusion/Plan: We will place the patient on a carb controlled diet, continue her long acting insulin, Check her hemoglobin A1c level, and place her on a sliding scale for coverage. Qualifiers: Diabetes mellitus senior living insulin use: with senior living use Diabetes mellitus complication status: with circulatory complication Diabetes mellitus complication detail: with other circulatory complications Qualified Code(s): E11.59 - Type 2 diabetes mellitus with other circulatory complications; Z79.4 - correction (current) use of insulin; Z79.4 - correction (current) use of insulin; Z79.4 - correction (current) use of insulin; Z79.4 - remote computer terminal operator (current) use of insulin (7) Malnourished Conclusion/Plan: Despite her morbid obesity the patient is malnourished with a low total protein and low albumin levels. I will obtain a nutritional consultation for her. (8) Hypothyroidism Conclusion/Plan: The patient has a history of hypothyroidism and takes levothyroxine at home. We will continue her on the current dosing and obtain a TSH to assess its effectiveness. Qualifiers: Hypothyroidism type: acquired Qualified Code(s): E03.9 - Hypothyroidism, unspecified - Lab Results Lab results reviewed: Yes Fish Bones: 12/25/17 20:19 12/25/17 20:19 - Diagnostic Imaging Results Diagnostic Imaging Results: positive: Final report reviewed Diagnostic Imaging Results Comments: EXAM: CHEST RADIOGRAPHY EXAM DATE: 12/25/2017 08:25 PM. CLINICAL HISTORY: Dyspnea. COMPARISON: CHEST 2 VIEW PA/LAT 05/15/2017. TECHNIQUE: 1 view. FINDINGS: Lungs/Pleura: No consolidative process or focal pneumonia. Negative for edema and pneumothorax. Mediastinum: Heart size is normal. There is moderate aortic arch atherosclerotic calcification, unchanged. Mild aortic tortuosity. Other: None. IMPRESSION: 1. Negative for an acute cardiopulmonary abnormality. Core Measures - Anticipated LOS I expect patient to be DC'd or transferred within 96 hours.: Yes - DVT/VTE - Prophylaxis VTE/DVT Device ordered at admit?: Yes
[2017-12-26] MEDS: SODIUM CHLORIDE FLUSH 0.9% 10 ML SYRINGE IVP SCH ×3 (01:57→16:42)
[2017-12-26] MEDS: ASPIRIN CHEW 81 MG TABLET PO SCH ×2 (02:20→10:42)
[2017-12-26 04:10] LABS: HB2 TOTAL 12.2 g/dL; HEMOGLOBIN A1C 0.7 g/dL; HEMOGLOBIN A1C % 7.4 % (4.6-6.2)
[2017-12-26 06:26] LABS: HGB - HEMOGLOBIN 10.6 g/dL (12.0-16.0); MEAN CORPUSCULAR HEMOGLOBIN 30.5 pg (27.0-31.0); MEAN CORPUSCULAR HGB CONC 32.3 g/dL (32.0-36.0); MEAN CORPUSCULAR VOLUME 94.5 fL (81.0-99.0); MEAN PLATELET VOLUME 7.8 fL (7.9-10.8); RED BLOOD COUNT 3.46 10^6/uL (4.20-5.40); RED CELL DISTRIBUTION WIDTH 13.3 % (12.0-15.0); WHITE BLOOD COUNT 17.5 x10^3/uL (4.8-10.8)
[2017-12-26 06:39] LABS: CALCIUM 8.6 mg/dL (8.5-10.3); CREATININE 1.4 mg/dL (0.4-1.0); MAGNESIUM 2.3 mg/dL (1.7-2.8); PHOSPHORUS 2.7 mg/dL (2.5-4.6)
[2017-12-26] MEDS: LEVOTHYROXINE 100 MCG TABLET PO SCH (06:46)
[2017-12-26] MEDS: LEVOTHYROXINE 75 MCG TABLET PO SCH (06:46)
[2017-12-26] MEDS ORDERED: LEVOTHYROXINE SODIUM 175 MCG PO SCH (07:00)
--- NOTE | 2017-12-26 07:54 | PROVIDER PROGRESS NOTE ---
Subjective - Prog Note Date Prog Note Date: 12/26/17 Prog Note Time: 07:53 - Subjective Pt reports feeling: No change Subjective: Deni states that she only feels "somewhat improved since admission". She still complains of cloudy thinking, lethargy and has a poor appetite. She denies increased shortness of breath, nausea, vomiting, chest pain, or an increased cough. Current Medications - Current Medications Current Medications: Active Medications Aspirin (St Zane Aspirin) 81 mg PO DAILY [facility] Last Admin: 12/26/17 10:42 Dose: 81 mg Carvedilol (Coreg) 3.125 mg PO BID [facility] Last Admin: 12/26/17 10:42 Dose: 3.125 mg Fluticasone Propionate (Flonase) 2 sprays YANIRA DAILY [facility] Last Admin: 12/26/17 11:07 Dose: 1 spr Ceftriaxone Sodium 1 gm/ (Sodium Chloride) 100 mls @ 200 mls/hr IV DAILY@2100 [facility] Insulin Aspart (Novolog) 2 - 10 unit SUBQ 0800,1200,1700,2100 [facility] PRN Reason: Protocol Last Admin: 12/26/17 16:42 Dose: 10 unit Insulin Glargine (Lantus Solostar) 15 unit SUBQ BID [facility] Last Admin: 12/26/17 16:42 Dose: 15 unit Lactobacillus Rhamnosus (Culturelle) 1 cap PO DAILY [facility] Last Admin: 12/26/17 10:43 Dose: 1 cap Levothyroxine Sodium (Synthroid) 100 mcg PO QDAC [facility] Last Admin: 12/26/17 06:46 Dose: 100 mcg Levothyroxine Sodium (Synthroid) 75 mcg PO QDAC [facility] Last Admin: 12/26/17 06:46 Dose: 75 mcg Paroxetine HCl (Paxil) 40 mg PO QPM [facility] Polyethylene Glycol (Miralax) 17 gm PO DAILY [facility] Last Admin: 12/26/17 10:43 Dose: Not Given Sodium Chloride (Normal Saline Flush 0.9%) 10 ml IVP PRN PRN PRN Reason: NEEDED PER PROVIDER ORDERS Sodium Chloride (Normal Saline Flush 0.9%) 10 ml IVP 0100,0900,1700 [facility] Last Admin: 12/26/17 16:42 Dose: 10 ml Spironolactone (Aldactone) 12.5 mg PO DAILY [facility] Last Admin: 12/26/17 17:20 Dose: 12.5 mg Temazepam (Restoril) 15 mg PO QPM PRN PRN Reason: Insomnia Lisinopril 20 mg ORAL DAILY 06/23/14 Lovastatin [Altoprev] 40 mg ORAL QPM 06/23/14 Hydrochlorothiazide 25 mg PO DAILY 06/22/15 Insulin Regular, Human [Novolin R] 0 - 40 units SUBQ TIDWM 06/22/15 PARoxetine [Paxil] 40 mg PO QPM 06/22/15 Carvedilol 3.125 mg PO DAILY 01/29/16 Insulin Detemir [Levemir Flextouch] 32 units SUBQ BID 05/15/17 Levothyroxine Sodium 175 mcg PO QDAC 05/15/17 Objective - Vital Signs/Intake & Output Reviewed Vital Signs: Yes Vital Signs: Vital Signs x48h Temp Pulse Resp BP BP Pulse Ox 12/26/17 07:42 37.5 C 85 16 110/37 L 96 12/26/17 04:45 37.1 C 67 18 102/42 L 94 12/26/17 00:35 37.2 C 87 20 119/41 L 93 Intake & Output: Intake & Output 12/23/17 12/24/17 12/25/17 12/26/17 23:59 23:59 23:59 23:59 Intake Total 100 700 Output Total 25 Balance 100 675 - Objective General Appearance: positive: Alert, Moderate distress, Anxious, Lethargic Eyes Bilateral: positive: Normal inspection, PERRL ENT: positive: ENT inspection nml, Pharynx nml, Pharyngeal erythema, Dry mucous membranes Neck: positive: Nml inspection, Thyroid nml, No JVD, Lymphadenopathy (R), Lymphadenopathy (L), Stiff neck Respiratory: positive: Chest non-tender, Wheezes, Rhonchi Cardiovascular: positive: No gallop, Irregularly irregular, Systolic murmur, Decreased pulse(s) Peripheral Pulses: 1+ Radial (R), 1+ Radial (L) Abdomen: positive: Non-tender, Nml bowel sounds, Other (obese, soft) Back: positive: Nml inspection Skin: positive: No rash, Warm, Dry Extremities: positive: Non-tender, Pedal edema (chronic, dependent stable BLE edema), Joint swelling Neurologic/Psychiatric: positive: Oriented x3, CN's nml (2-12), Motor nml, Sensation nml, Weakness, Sensory loss, Depressed mood/affect Reflexes: Bicep (R): 2+, Bicep (L): 2+ - Lab Results Fish Bones: 12/26/17 06:07 12/26/17 06:07 Other Labs: Lab Results x24hrs 12/26/17 12/26/17 12/26/17 Range/Units 06:07 06:07 06:07 WBC 17.5 H (4.8-10.8) x10^3/uL RBC 3.46 L (4.20-5.40) 10^6/uL Hgb 10.6 L (12.0-16.0) g/dL Hct 32.7 L (37.0-47.0) % MCV 94.5 (81.0-99.0) fL MCH 30.5 (27.0-31.0) pg MCHC 32.3 (32.0-36.0) g/dL RDW 13.3 (12.0-15.0) % Plt Count 277 (130-450) 10^3/uL MPV 7.8 L (7.9-10.8) fL Sodium 129 L (135-145) mmol/L Potassium 4.0 (3.5-5.0) mmol/L Chloride 89 L (101-111) mmol/L Carbon Dioxide 30 (21-32) mmol/L Anion Gap 10.0 (6-13) BUN 26 H (6-20) mg/dL Creatinine 1.4 H (0.4-1.0) mg/dL Estimated GFR (MDRD) 36 L (>89) Glucose 232 H (70-100) mg/dL Glycated Hemoglobin (4.6-6.2) % Estim Average Glucose (70-100) Calcium 8.6 (8.5-10.3) mg/dL Phosphorus 2.7 (2.5-4.6) mg/dL Magnesium 2.3 (1.7-2.8) mg/dL B-Natriuretic Peptide 113 H (5-100) pg/mL TSH (0.34-5.60) uIU/mL 12/26/17 12/25/17 Range/Units 06:05 23:26 WBC (4.8-10.8) x10^3/uL RBC (4.20-5.40) 10^6/uL Hgb (12.0-16.0) g/dL Hct (37.0-47.0) % MCV (81.0-99.0) fL MCH (27.0-31.0) pg MCHC (32.0-36.0) g/dL RDW (12.0-15.0) % Plt Count (130-450) 10^3/uL MPV (7.9-10.8) fL Sodium (135-145) mmol/L Potassium (3.5-5.0) mmol/L Chloride (101-111) mmol/L Carbon Dioxide (21-32) mmol/L Anion Gap (6-13) BUN (6-20) mg/dL Creatinine (0.4-1.0) mg/dL Estimated GFR (MDRD) (>89) Glucose (70-100) mg/dL Glycated Hemoglobin 7.4 H (4.6-6.2) % Estim Average Glucose 166 H (70-100) Calcium (8.5-10.3) mg/dL Phosphorus (2.5-4.6) mg/dL Magnesium (1.7-2.8) mg/dL B-Natriuretic Peptide (5-100) pg/mL TSH 6.72 H (0.34-5.60) uIU/mL - Diagnostic Imaging Diagnostic Imaging Results: positive: Prelim report reviewed, Final report reviewed ABX Reporting Has patient been on IV antibiotics over the past 48 hours?: Yes Assessment/Plan - Problem List (1) Systolic CHF, chronic Impression: Systolic, CHF NYHA class 3, with recent increased oxygen needs (wears chronic O2 ). She is on Coreg BID, an REBEKAH-Lisinopril and a diuretic of HCTZ at home. An echo was done today and preliminary results show an overall improved heart function, with mild pulmonary HTN. Plan: Continue Coreg as this has been very beneficial, plan to reduce lisinopril by half, and change HCTZ to Spironolactone and low dose furosemide. (2) LILY (acute kidney injury) Impression: The patient has known mild CKD and had an admission GFR of 47, that got worse to 36. Creatinine was 1.1, that is now worse at 1.4. I suspect intravascular depletion, third spacing and effects of acute illness. She was started on gentle hydration that ran for most of the day, and now discontinued. Plan: Based on these labs, lisinopril remains on hold, and will only be resumed at 1/2 the dose, HCTZ will be discontinued, start low dose Spironolactone. Consider IV lasix if breathing becomes worse. Continue daily labs and avoid nephrotoxic agents. (3) Complicated urinary tract infection Impression: Upon admission, a urine sample shows a probable UTI. Cultures are pending. She is known to have urinary urgency, frequency and to be incontinent at times. The patient also has an elevated WBC count of 17.5. She is mildly hypotensive, so all B/P meds are on hold. She is prescribed IV Rocephin every 24 hours. Plan: Offer a Pure Wick for comfort, continue IV treatment, and monitor urine out put. (4) Depression with anxiety Impression: Deni talks about loosing her daughter who had Down's syndrome and lived until age 59. She has a known history of depression. She admits to a couple of her children living with her, has financial troubles and takes Paxil at home. Plan: Continue to monitor. (5) Obesity Impression: Deni has been obese for much of her adult life and has a current BMI of 50.3. She has been having frequent falls and is gradually declining in her mobility. Her nutritional labs are low on this admission. Plan: Nutritional consult, consider weight loss program out patient-although diuretic therapy may reduce weight, and encourage ambulation with high protein snacks. Qualifiers: Obesity type: due to excess calories Body mass index: BMI 50.0-59.9 (6) HTN (hypertension) Impression: The patient has a known history of this and today is lower than normal at 127/ 47. She is prescribed coreg BID, despite lung disease. An echocardiogram preliminary results show an improvement overall heart function. We will add antihypertensives slowly. Plan: Continue to monitor vital signs. Qualifiers: Hypertension type: essential hypertension Qualified Code(s): I10 - Essential (primary) hypertension (7) T2DM (type 2 diabetes mellitus) Impression: A hemoglobin A1C was 7.4%, which is wonderful for her showing good blood sugar control at home. She remains on high dose Levimir SQ BID, and SSI. She denies recent complications. Plan: Continue carb control diet, SSI, routine BS checks and long acting insulin at a lower dose, to be increased tomorrow. Qualifiers: Diabetes mellitus assistant terminal manager insulin use: with longterm use Diabetes mellitus complication status: with circulatory complication Diabetes mellitus complication detail: with other circulatory complications Qualified Code(s): E11.59 - Type 2 diabetes mellitus with other circulatory complications; Z79.4 - halfway (current) use of insulin; Z79.4 - adjunct faculty for medical terminology (current) use of insulin; Z79.4 - adjunct faculty for medical terminology (current) use of insulin; Z79.4 - halfway (current) use of insulin (8) Falls frequently Impression: The patient admits to a recent fall (~last Sunday-5 days ago), in which she landed on her right knee. She denies increased pain, but states that she took a picture of it as it was bruised. She is known in the community to call EMS for assistance to her chair after falling. Plan: Continue fall precautions and monitor mental status.
[2017-12-26] MEDS ORDERED: INSULIN ASPART 300 UNIT/3 ML PEN SUBQ SCH (08:00)
[2017-12-26] MEDS ORDERED: LISINOPRIL 20 MG TABLET PO SCH (09:00)
[2017-12-26] MEDS ORDERED: CARVEDILOL 3.125 MG TABLET PO SCH (09:00)
[2017-12-26] MEDS: CARVEDILOL 3.125 MG TABLET PO SCH ×2 (10:42→20:18)
[2017-12-26] MEDS: LACTOBACILLUS RHAMNOSUS GG CAPSULE PO SCH (10:43)
[2017-12-26] MEDS: POLYETHYLENE GLYCOL 3350 17 GM PACKET PO SCH (10:43)
[2017-12-26] MEDS: FLUTICASONE NASAL SPRAY NAS SCH (11:07)
[2017-12-26] MEDS: INSULIN ASPART 300 UNIT/3 ML PEN SUBQ SCH ×3 (12:27→20:17)
[2017-12-26] MEDS: INSULIN GLARGINE 300 UNIT/3 ML PEN SUBQ SCH ×2 (16:42→20:29)
[2017-12-26] MEDS: SPIRONOLACTONE 25 MG TABLET PO SCH (17:20)
[2017-12-26] MEDS: PARoxetine 10 MG TABLET PO SCH (20:18)
[2017-12-26] MEDS: cefTRIAXone 1 GM in SODIUM CHLORIDE 0.9% MINIBAG 100 ML IV SCH (20:29)
[2017-12-27] MEDS: SODIUM CHLORIDE FLUSH 0.9% 10 ML SYRINGE IVP SCH ×3 (00:58→16:36)
[2017-12-27 06:37] LABS: HGB - HEMOGLOBIN 10.3 g/dL (12.0-16.0); MEAN CORPUSCULAR HEMOGLOBIN 30.8 pg (27.0-31.0); MEAN CORPUSCULAR HGB CONC 33.6 g/dL (32.0-36.0); MEAN CORPUSCULAR VOLUME 91.7 fL (81.0-99.0); MEAN PLATELET VOLUME 7.9 fL (7.9-10.8); RED BLOOD COUNT 3.34 10^6/uL (4.20-5.40)
[2017-12-27] MEDS: LEVOTHYROXINE 75 MCG TABLET PO SCH (06:37)
[2017-12-27 06:38] LABS: CALCIUM 8.6 mg/dL (8.5-10.3); CREATININE 1.1 mg/dL (0.4-1.0); MAGNESIUM 2.1 mg/dL (1.7-2.8)
[2017-12-27] MEDS: LEVOTHYROXINE 100 MCG TABLET PO SCH (06:38)
[2017-12-27] MEDS: INSULIN GLARGINE 300 UNIT/3 ML PEN SUBQ SCH ×3 (09:03→20:28)
[2017-12-27] MEDS: INSULIN ASPART 300 UNIT/3 ML PEN SUBQ SCH ×4 (09:03→20:27)
[2017-12-27] MEDS: FLUTICASONE NASAL SPRAY NAS SCH (09:04)
[2017-12-27] MEDS: CARVEDILOL 3.125 MG TABLET PO SCH ×2 (10:16→20:26)
[2017-12-27] MEDS: ASPIRIN CHEW 81 MG TABLET PO SCH (10:16)
[2017-12-27] MEDS: POLYETHYLENE GLYCOL 3350 17 GM PACKET PO SCH (10:16)
[2017-12-27] MEDS: LACTOBACILLUS RHAMNOSUS GG CAPSULE PO SCH (10:16)
[2017-12-27] MEDS: SPIRONOLACTONE 25 MG TABLET PO SCH (10:17)
[2017-12-27] MEDS ORDERED: INSULIN ASPART 300 UNIT/3 ML PEN SUBQ SCH (12:00)
[2017-12-27] MEDS ORDERED: INSULIN GLARGINE 300 UNIT/3 ML PEN SUBQ ONE (12:00)
[2017-12-27] MEDS: FLUCONAZOLE 100 MG TABLET PO SCH (12:27)
[2017-12-27] MEDS ORDERED: INSULIN ASPART 300 UNIT/3 ML PEN SUBQ ONE (16:27)
--- NOTE | 2017-12-27 18:52 | PROVIDER PROGRESS NOTE ---
Subjective - Prog Note Date Prog Note Date: 12/27/17 Prog Note Time: 08:00 - Subjective Pt reports feeling: Improved Subjective: Deni states that she is still feeling weak and is concerned about returning home alone since her son is just 2 rooms away as one of our patients. She denies any new symptoms including; shortness of breath, chest pain, nausea, vomiting, or a new cough. Objective - Vital Signs/Intake & Output Reviewed Vital Signs: Yes Vital Signs: Vital Signs x48h Temp Pulse Resp BP Pulse Ox 12/27/17 15:43 36.4 C L 66 16 114/84 H 96 Intake & Output: Intake & Output 12/24/17 12/25/17 12/26/17 12/27/17 23:59 23:59 23:59 23:59 Intake Total 100 3776.667 1000 Output Total 675 1500 Balance 100 3101.667 -500 - Objective General Appearance: positive: No acute distress, Alert Eyes Bilateral: positive: Normal inspection, PERRL ENT: positive: ENT inspection nml, Pharynx nml, Pharyngeal erythema, Dry mucous membranes Neck: positive: Nml inspection, Thyroid nml, No JVD Respiratory: positive: Chest non-tender, No respiratory distress Cardiovascular: positive: No gallop, Irregularly irregular, Systolic murmur Peripheral Pulses: 1+ Radial (R), 1+ Radial (L) Abdomen: positive: Non-tender, Nml bowel sounds, Other (obese, soft) Back: positive: Nml inspection Skin: positive: No rash, Warm, Dry Extremities: positive: Non-tender, Full ROM, Pedal edema (chronic, BLE edema), Joint swelling Neurologic/Psychiatric: positive: Oriented x3, CN's nml (2-12), Motor nml, Sensation nml, Weakness, Depressed mood/affect Reflexes: Bicep (R): 2+, Bicep (L): 2+ - Lab Results Fish Bones: 12/28/17 06:00 12/28/17 06:00 Other Labs: Lab Results x24hrs 12/27/17 12/27/17 12/27/17 Range/Units 11:15 07:39 06:15 WBC (4.8-10.8) x10^3/uL RBC (4.20-5.40) 10^6/uL Hgb (12.0-16.0) g/dL Hct (37.0-47.0) % MCV (81.0-99.0) fL MCH (27.0-31.0) pg MCHC (32.0-36.0) g/dL RDW (12.0-15.0) % Plt Count (130-450) 10^3/uL MPV (7.9-10.8) fL Sodium (135-145) mmol/L Potassium (3.5-5.0) mmol/L Chloride (101-111) mmol/L Carbon Dioxide (21-32) mmol/L Anion Gap (6-13) BUN (6-20) mg/dL Creatinine (0.4-1.0) mg/dL Estimated GFR (MDRD) (>89) Glucose (70-100) mg/dL POC Whole Bld Glucose 369 H 245 H (70 - 100) mg/dL Calcium (8.5-10.3) mg/dL Phosphorus (2.5-4.6) mg/dL Magnesium (1.7-2.8) mg/dL B-Natriuretic Peptide 125 H (5-100) pg/mL TSH (0.34-5.60) uIU/mL 12/27/17 12/27/17 12/26/17 Range/Units 06:15 06:15 06:07 WBC 17.0 H (4.8-10.8) x10^3/uL RBC 3.34 L (4.20-5.40) 10^6/uL Hgb 10.3 L (12.0-16.0) g/dL Hct 30.6 L (37.0-47.0) % MCV 91.7 (81.0-99.0) fL MCH 30.8 (27.0-31.0) pg MCHC 33.6 (32.0-36.0) g/dL RDW 13.0 (12.0-15.0) % Plt Count 290 (130-450) 10^3/uL MPV 7.9 (7.9-10.8) fL Sodium 128 L 129 L (135-145) mmol/L Potassium 3.8 4.0 (3.5-5.0) mmol/L Chloride 91 L 89 L (101-111) mmol/L Carbon Dioxide 28 30 (21-32) mmol/L Anion Gap 9.0 10.0 (6-13) BUN 25 H 26 H (6-20) mg/dL Creatinine 1.1 H 1.4 H (0.4-1.0) mg/dL Estimated GFR (MDRD) 47 L 36 L (>89) Glucose 267 H 232 H (70-100) mg/dL POC Whole Bld Glucose (70 - 100) mg/dL Calcium 8.6 8.6 (8.5-10.3) mg/dL Phosphorus 2.7 (2.5-4.6) mg/dL Magnesium 2.1 2.3 (1.7-2.8) mg/dL B-Natriuretic Peptide (5-100) pg/mL TSH (0.34-5.60) uIU/mL 12/26/17 12/26/17 Range/Units 06:07 06:05 WBC 17.5 H (4.8-10.8) x10^3/uL RBC 3.46 L (4.20-5.40) 10^6/uL Hgb 10.6 L (12.0-16.0) g/dL Hct 32.7 L (37.0-47.0) % MCV 94.5 (81.0-99.0) fL MCH 30.5 (27.0-31.0) pg MCHC 32.3 (32.0-36.0) g/dL RDW 13.3 (12.0-15.0) % Plt Count 277 (130-450) 10^3/uL MPV 7.8 L (7.9-10.8) fL Sodium (135-145) mmol/L Potassium (3.5-5.0) mmol/L Chloride (101-111) mmol/L Carbon Dioxide (21-32) mmol/L Anion Gap (6-13) BUN (6-20) mg/dL Creatinine (0.4-1.0) mg/dL Estimated GFR (MDRD) (>89) Glucose (70-100) mg/dL POC Whole Bld Glucose (70 - 100) mg/dL Calcium (8.5-10.3) mg/dL Phosphorus (2.5-4.6) mg/dL Magnesium (1.7-2.8) mg/dL B-Natriuretic Peptide (5-100) pg/mL TSH 6.72 H (0.34-5.60) uIU/mL - Diagnostic Imaging Diagnostic Imaging Results: positive: Final report reviewed ABX Reporting Has patient been on IV antibiotics over the past 48 hours?: Yes Assessment/Plan - Problem List (1) Systolic CHF, chronic Impression: Systolic, CHF NYHA class 3, with recent increased oxygen needs (wears chronic O2 ). She is on Coreg BID, an REBEKAH-Lisinopril and a diuretic of HCTZ at home. Echo results show an overall improved heart function, with mild pulmonary HTN. The patient was continued on Coreg as this has been very beneficial, reduced lisinopril by half, and changed HCTZ to Spironolactone and low dose furosemide. Her BNP was nearly normal at 125 today. Plan: Continue to monitor fluid balance, daily weights and continue medications. (2) LILY (acute kidney injury) Impression: The patient has known mild CKD and had an admission GFR of 47, that got worse to 36. Creatinine is improved at 1.1. I suspect intravascular depletion, third spacing and effects of acute illness. She was started on gentle hydration that ran for most of the day, and now discontinued. Plan: Continue Lisinopril at 1/2 the dose, continue low dose Spironolactone. Continue daily labs and avoid nephrotoxic agents. (3) Complicated urinary tract infection Impression: Upon admission, a urine sample shows a probable UTI. Cultures are pending. She is known to have urinary urgency, frequency and to be incontinent at times. The patient also has an elevated WBC count of 17.0 She is prescribed IV Rocephin. Plan: Offer a Pure Wick for comfort, continue IV treatment, and monitor urine out put. (4) Depression with anxiety Impression: Deni talks about loosing her daughter who had Down's syndrome and lived until age 59. She has a known history of depression. She admits to a couple of her children living with her, has financial troubles and takes Paxil at home. Plan: Continue to monitor and continue meds. (5) Obesity Impression: Deni has been obese for much of her adult life and has a current BMI of 50.3. She has been having frequent falls and is gradually declining in her mobility. Her nutritional labs are low on this admission. Plan: Nutritional consult, consider weight loss program out patient-although diuretic therapy may reduce weight, and encourage ambulation with high protein snacks. Qualifiers: Obesity type: due to excess calories Body mass index: BMI 50.0-59.9 (6) HTN (hypertension) Impression: The patient has a known history of this and today is lower than normal at 114/ 84. She is prescribed coreg BID, despite lung disease. Echocardiogram results show an improvement overall heart function. Plan: Continue to monitor vital signs. Qualifiers: Hypertension type: essential hypertension Qualified Code(s): I10 - Essential (primary) hypertension (7) T2DM (type 2 diabetes mellitus) Impression: A hemoglobin A1C was 7.4%, which is wonderful for her showing good blood sugar control at home. She remains on high dose Levimir SQ BID, and SSI. She denies recent complications. Plan: Continue carb control diet, SSI, routine BS checks and long acting insulin. Qualifiers: Diabetes mellitus terminal worker insulin use: with detention use Diabetes mellitus complication status: with circulatory complication Diabetes mellitus complication detail: with other circulatory complications Qualified Code(s): E11.59 - Type 2 diabetes mellitus with other circulatory complications; Z79.4 - exterminator (current) use of insulin; Z79.4 - care home (current) use of insulin; Z79.4 - care home (current) use of insulin; Z79.4 - exterminator (current) use of insulin (8) Falls frequently Impression: The patient admits to a recent fall (~last Sunday-7 days ago), in which she landed on her right knee. She denies increased pain, but states that she took a picture of it as it was bruised. She is known in the community to call EMS for assistance to her chair after falling. Plan: Continue fall precautions and monitor mental status.
[2017-12-27] MEDS: PARoxetine 10 MG TABLET PO SCH (20:20)
[2017-12-27] MEDS: cefTRIAXone 1 GM in SODIUM CHLORIDE 0.9% MINIBAG 100 ML IV SCH (20:21)
[2017-12-28] MEDS: SODIUM CHLORIDE FLUSH 0.9% 10 ML SYRINGE IVP SCH ×2 (00:43→10:50)
[2017-12-28] MEDS: LEVOTHYROXINE 75 MCG TABLET PO SCH (06:21)
[2017-12-28] MEDS: LEVOTHYROXINE 100 MCG TABLET PO SCH (06:21)
[2017-12-28 06:27] LABS: HGB - HEMOGLOBIN 10.2 g/dL (12.0-16.0); MEAN CORPUSCULAR HEMOGLOBIN 30.8 pg (27.0-31.0); MEAN CORPUSCULAR VOLUME 93.5 fL (81.0-99.0); RED BLOOD COUNT 3.32 10^6/uL (4.20-5.40); RED CELL DISTRIBUTION WIDTH 13.2 % (12.0-15.0); WHITE BLOOD COUNT 15.2 x10^3/uL (4.8-10.8)
[2017-12-28 06:36] LABS: CALCIUM 8.9 mg/dL (8.5-10.3)
[2017-12-28] MEDS: SPIRONOLACTONE 25 MG TABLET PO SCH (08:53)
[2017-12-28] MEDS: ASPIRIN CHEW 81 MG TABLET PO SCH (08:53)
[2017-12-28] MEDS: FLUCONAZOLE 100 MG TABLET PO SCH (08:53)
[2017-12-28] MEDS: POLYETHYLENE GLYCOL 3350 17 GM PACKET PO SCH (08:54)
[2017-12-28] MEDS: FLUTICASONE NASAL SPRAY NAS SCH (08:54)
[2017-12-28] MEDS: LACTOBACILLUS RHAMNOSUS GG CAPSULE PO SCH (08:54)
[2017-12-28] MEDS: INSULIN ASPART 300 UNIT/3 ML PEN SUBQ SCH ×2 (08:55→11:57)
[2017-12-28] MEDS: INSULIN GLARGINE 300 UNIT/3 ML PEN SUBQ SCH (08:56)
[2017-12-28 09:16] VITALS: BP 141/52
[2017-12-28] MEDS: CARVEDILOL 3.125 MG TABLET PO SCH (11:25)
--- NOTE | 2017-12-28 14:19 | Discharge Plan ---
Discharge Plan Disposition: Home, Self Care Condition: Good Prescriptions: Amox/Clav 875/125 [Augmentin] 1 each PO Q12H #14 tablet Levothyroxine [Synthroid] 112 mcg PO QDAC #30 tablet Levothyroxine [Synthroid] 75 mcg PO QDAC #30 tablet Lisinopril 5 mg PO DAILY #30 tablet Spironolactone [Aldactone] 25 mg PO DAILY #30 tablet Diet: Diabetic Activity Restrictions: Activity as Tolerated Shower Restrictions: No Driving Restrictions: Yes Assistance Devices: Walker Weight Bearing: Full Weight Additional Instructions or Follow Up instructions: You were admitted for a UTI and treated with IV antibiotics. The pathogen was identified and is E. Coli, which is sensitive to many antibiotics. You should continue this orally for another 7 days. An echocardiogram was obtained and shows great improvement in your heart function since it was last done in May of 2017. You were found to have right sided heart pressures that would be better treated with Spironolactone rather than your hydrochlorathiazide (please STOP this med). Your blood pressure seemed low on average, so please reduce the Lisinopril to 5 mg daily. A TSH was checked and was elevated so, you should increase your home dose by 12 mcg and re-check this TSH in about one month. Please see your PCP within one week. No Smoking: If you smoke, Please STOP! Call for help. Follow-up with: Flor Macario ARNP [Primary Care Provider] -
--- NOTE | 2017-12-28 18:47 | DISCHARGE SUMMARY ---
Discharge Summary Admit Date: 12/25/17 Discharge Date: 12/28/17 Discharging Provider: EMMA Recinos Primary Care Provider: Flor Macario Code Status: Attempt Resuscitation Condition at Discharge: Good Discharge Disposition: 01 Home, Self Care - DIAGNOSES Admission Diagnoses: Urinary tract infection, site not specified (N39.0) Acute kidney failure, unspecified (N17.9) Atherosclerotic heart disease of [place] coronary artery without angina pectoris (I25.10) Other specified anxiety disorders (F41.8) Heart failure, unspecified (I50.9) Type 2 diabetes mellitus without complications (E11.9) Unspecified protein-calorie malnutrition (E46) Hypothyroidism, unspecified (E03.9) Discharge Diagnoses with Status of Each Condition: UTI (urinary tract infection) (N39.0) Acute kidney injury (N17.9) Depression with anxiety (F41.8) Type 2 diabetes mellitus (E11.9) Systolic CHF, acute on chronic (I50.23) Obesity (E66.9) HTN (hypertension) (I10) Falls frequently (R29.6) Mild pulmonary hypertension (I27.20) - HPI History of Present Illness: Ms. Deni Payne is a very pleasant 82-year-old female who has noted a decrease in her energy levels with an associated decreased oral intake of both food and fluids which is significant for her as she is morbidly obese. She also says that she has been shaky and noted that her urine began smelling stronger about 3 days ago. The patient has stumbled a couple of times and due to her morbid obesity her family is unable to care for her. Patient is diabetic but well controlled and notes that her blood sugars have been elevated over the last several days as well. She has a history of congestive heart failure and a BNP done on admission was only very mildly elevated at 156. Chemistries found the patient to be slightly hyponatremic with an elevated creatinine and low magnesium levels. She was also found to be malnourished with a total protein of 6.6 and an albumin of 2.9 despite her morbid obesity. She was brought into the emergency department where she was found to have both bacteriuria and pyuria and will be admitted with a diagnosis of acute complicated urinary tract infection. - HOSPITAL COURSE Hospital Course: (1) Systolic CHF, chronic Systolic, CHF NYHA class 3, with recent increased oxygen needs (wears chronic O2 ). She is on Coreg BID, an REBEKAH-Lisinopril and a diuretic of HCTZ at home. Echo results show an overall improved heart function, with mild pulmonary HTN. The patient was continued on Coreg as this has been very beneficial, reduced lisinopril by half, and changed HCTZ to Spironolactone and low dose furosemide. Her BNP was nearly normal at 120 upon discharge. (2) LILY (acute kidney injury) The patient has known mild CKD and had an admission GFR of 47, that got worse to 36. Creatinine was improved at 1.1. I suspect intravascular depletion, third spacing and effects of acute illness. This is considered resolved at the time of discharge. (3) Complicated urinary tract infection Upon admission, a urine sample shows a UTI. She is known to have urinary urgency , frequency and to be incontinent at times. The patient also has an elevated WBC count of 17.0 She was given IV Rocephin, and this was changed to oral antibiotics upon discharge. (4) Depression with anxiety Deni talks about loosing her daughter who had Down's syndrome and lived until age 59. She has a known history of depression. She admits to a couple of her children living with her, has financial troubles and takes Paxil at home. (5) Obesity Deni has been obese for much of her adult life and has a current BMI of 50.3. She has been having frequent falls and is gradually declining in her mobility. Her nutritional labs are low on this admission. Nutritional consult, consider weight loss program out patient-although diuretic therapy may reduce weight, and encourage ambulation with high protein snacks. (6) HTN (hypertension) The patient has a known history of this and today is lower than normal at 114/ 84. She is prescribed coreg BID, despite lung disease. Echocardiogram results show an improvement overall heart function. (7) T2DM (type 2 diabetes mellitus) A hemoglobin A1C was 7.4%, which is wonderful for her showing good blood sugar control at home. She remains on high dose Levimir SQ BID, and SSI. She denies recent complications. (8) Falls frequently The patient admits to a recent fall (~last Sunday-7 days ago), in which she landed on her right knee. She denies increased pain, but states that she took a picture of it as it was bruised. She is known in the community to call EMS for assistance to her chair after falling. Disposition: A [employer] customer care representative who cares for the patient's son gave the patient a ride home. She was on her usual amount of oxygen and considered at baseline upon discharge. - ALLERGIES Allergies/Adverse Reactions: Allergies Allergy/AdvReac Type Severity Reaction Status Date / Time No Known Drug Allergies Allergy Verified 11/24/16 23:30 - MEDICATIONS Home Medications: Ambulatory Orders Medication Instructions Recorded Confirmed Lovastatin [Altoprev] 40 mg ORAL QPM 06/23/14 12/26/17 Insulin Regular, Human [Novolin R] 0 - 40 units SUBQ TIDWM 06/22/15 12/26/17 PARoxetine [Paxil] 40 mg PO QPM 06/22/15 12/26/17 Carvedilol 3.125 mg PO DAILY 01/29/16 12/26/17 Insulin Detemir [Levemir Flextouch] 32 units SUBQ BID 05/15/17 12/26/17 Levothyroxine Sodium 175 mcg PO QDAC 05/15/17 12/26/17 Fluticasone [Flonase] 1 sprays YANIRA DAILY #6 bottle 05/18/17 12/26/17 Lactobacillus Acidophilus 1 each PO DAILY 16 Days #16 capsule 05/18/17 12/26/17 [Acidophilus Lactobacilli] Amox/Clav 875/125 [Augmentin] 1 each PO Q12H #14 tablet 12/28/17 Levothyroxine [Synthroid] 75 mcg PO QDAC #30 tablet 12/28/17 Levothyroxine [Synthroid] 112 mcg PO QDAC #30 tablet 12/28/17 Lisinopril 5 mg PO DAILY #30 tablet 12/28/17 Spironolactone [Aldactone] 25 mg PO DAILY #30 tablet 12/28/17 - PHYSICAL EXAM AT DISCHARGE General Appearance: positive: No acute distress, Alert Eyes Bilateral: positive: Normal inspection, PERRL ENT: positive: ENT inspection nml, Pharynx nml, No signs of dehydration Neck: positive: Nml inspection, Thyroid nml, No JVD Respiratory: positive: Chest non-tender, No respiratory distress, Breath sounds nml Cardiovascular: positive: No gallop, Irregularly irregular, Systolic murmur Peripheral Pulses: positive: 2+ Abdomen: positive: Non-tender, Nml bowel sounds, Other (obese, soft) Back: positive: Nml inspection Skin: positive: No rash, Warm, Dry Extremities: positive: Non-tender, Pedal edema (chronic equal BLE edema), Joint swelling Neurologic/Psychiatric: positive: Oriented x3, CN's nml (2-12), Motor nml, Weakness, Depressed mood/affect Reflexes: Bicep (R): 2+, Bicep (L): 2+ - LABS Result Diagrams: 12/28/17 06:00 12/28/17 06:00 - DIAGNOSTIC IMAGING Diagnostic Imaging Results: Final report reviewed - FOLLOW UP Follow Up: Disposition: Home, Self Care Condition: Good Prescriptions: Amox/Clav 875/125 [Augmentin] 1 each PO Q12H #14 tablet Levothyroxine [Synthroid] 112 mcg PO QDAC #30 tablet Levothyroxine [Synthroid] 75 mcg PO QDAC #30 tablet Lisinopril 5 mg PO DAILY #30 tablet Spironolactone [Aldactone] 25 mg PO DAILY #30 tablet Diet: Diabetic Activity Restrictions: Activity as Tolerated Shower Restrictions: No Driving Restrictions: Yes Assistance Devices: Walker Weight Bearing: Full Weight Additional Instructions or Follow Up instructions: You were admitted for a UTI and treated with IV antibiotics. The pathogen was identified and is E. Coli, which is sensitive to many antibiotics. You should continue this orally for another 7 days. An echocardiogram was obtained and shows great improvement in your heart function since it was last done in May of 2017. You were found to have right sided heart pressures that would be better treated with Spironolactone rather than your hydrochlorathiazide (please STOP this med). Your blood pressure seemed low on average, so please reduce the Lisinopril to 5 mg daily. A TSH was checked and was elevated so, you should increase your home dose by 12 mcg and re-check this TSH in about one month. Please see your PCP within one week. - TIME SPENT Time Spent in Discharge (Minutes): 45
== END 2017-12-28 14:52 | disposition home or self-care (01) | DRG 690 ==
LOC: EDBD → EDUNIT# → ED 18:27 → SUPCPDRO 18:27 → MS2 22:34
PROVIDERS: ADMIT Hospitalist; ATTEND Nurse Practitioner
DX: N10 Acute pyelonephritis (principal); N39.0 Urinary tract infection, site not specified; R53.1 Weakness; Z91.81 History of falling; E66.9 Obesity, unspecified; Z68.43 Body mass index [BMI] 50.0-59.9, adult; E11.9 Type 2 diabetes mellitus without complications; I11.0 Hypertensive heart disease with heart failure; N17.9 Acute kidney failure, unspecified; I50.9 Heart failure, unspecified; I25.2 Old myocardial infarction; E46 Unspecified protein-calorie malnutrition; E87.1 Hypo-osmolality and hyponatremia; I13.0 Hypertensive heart and chronic kidney disease with heart failure and stage 1 through stage 4 chronic kidney disease, or unspecified chronic kidney disease; I50.22 Chronic systolic (congestive) heart failure; I95.9 Hypotension, unspecified; Z87.891 Personal history of nicotine dependence; B96.20 Unspecified Escherichia coli [E. coli] as the cause of diseases classified elsewhere; I25.10 Atherosclerotic heart disease of native coronary artery without angina pectoris; E03.9 Hypothyroidism, unspecified; F41.8 Other specified anxiety disorders; R29.6 Repeated falls; I27.20 Pulmonary hypertension, unspecified; E66.01 Morbid (severe) obesity due to excess calories; E11.22 Type 2 diabetes mellitus with diabetic chronic kidney disease; N18.2 Chronic kidney disease, stage 2 (mild); E11.59 Type 2 diabetes mellitus with other circulatory complications; J98.4 Other disorders of lung; E78.00 Pure hypercholesterolemia, unspecified; Z79.4 Long term (current) use of insulin; Z99.81 Dependence on supplemental oxygen; Z79.899 Other long term (current) drug therapy; Z85.41 Personal history of malignant neoplasm of cervix uteri; Z86.14 Personal history of Methicillin resistant Staphylococcus aureus infection
CPT/HCPCS: 36415; 71045; 80048; 80053; 81001; 81003; 82009; 83036; 83605; 83690; 83735; 83880; 84100; 84443; 84484; 85025; 85027; 87086; 87181; 93306; 94640; 96365; 99284

== ENCOUNTER 2018-01-16 08:00 | Outpatient (CLI) | payer MEDICARE ==
[2018-01-16 17:23] LABS: BILIRUBIN,URINE NEGATIVE (NEGATIVE); GLUCOSE, URINE (UA) NEGATIVE (NEGATIVE); KETONES,URINE (UA) NEGATIVE (NEGATIVE); LEUKOCYTE ESTERASE, URINE MODERATE (NEGATIVE); NITRITE,URINE NEGATIVE (NEGATIVE); OCCULT BLOOD,URINE NEGATIVE (NEGATIVE); PROTEIN,URINE NEGATIVE (NEGATIVE); UROBILINOGEN,URINE 0.2 (NORMAL) E.U./dL (NORMAL)
[2018-01-16 17:36] LABS: CLARITY,URINE HAZY (CLEAR)
[2018-01-16 17:43] LABS: BACTERIA,URINE Few /HPF (None Seen); RBC,URINE 0-5 /HPF (0-5); SQUAMOUS EPITHELIAL CELL,UR FEW Squamous (<= Few)
== END 2018-01-16 08:01 | disposition home or self-care (01) ==
LOC: LAB.R 08:00
PROVIDERS: ATTEND Nurse Practitioner Family
DX: N12 Tubulo-interstitial nephritis, not specified as acute or chronic (principal)
CPT/HCPCS: 81001; 87086; 87181

== ENCOUNTER 2018-07-11 08:00 | Outpatient (CLI) | payer MEDICARE ==
[2018-07-11 13:30] LABS: BILIRUBIN,URINE NEGATIVE (NEGATIVE); GLUCOSE, URINE (UA) 500 mg/dL (NEGATIVE); KETONES,URINE (UA) NEGATIVE (NEGATIVE); LEUKOCYTE ESTERASE, URINE MODERATE (NEGATIVE); NITRITE,URINE POSITIVE (NEGATIVE); OCCULT BLOOD,URINE NEGATIVE (NEGATIVE); PROTEIN,URINE NEGATIVE (NEGATIVE); UROBILINOGEN,URINE 0.2 (NORMAL) E.U./dL (NORMAL)
[2018-07-11 13:31] LABS: CLARITY,URINE HAZY (CLEAR)
[2018-07-11 14:04] LABS: BACTERIA,URINE Many /HPF (None Seen); RBC,URINE 0-5 /HPF (0-5); SQUAMOUS EPITHELIAL CELL,UR MOD Squamous (<= Few)
== END 2018-07-11 23:59 | disposition home or self-care (01) ==
LOC: LAB.R 08:00
PROVIDERS: ATTEND Nurse Practitioner Family
DX: R30.0 Dysuria (principal)
CPT/HCPCS: 81001; 81003; 87086

== ENCOUNTER 2018-07-26 12:09 | Outpatient (CLI) | payer MEDICARE | END 2018-07-26 12:10 | disposition critical access hospital (66) | LOC: EMS 12:09 | PROVIDERS: ATTEND Surgery | DX: M54.9 Dorsalgia, unspecified (principal); R07.81 Pleurodynia; R73.9 Hyperglycemia, unspecified; R05 Cough; R68.83 Chills (without fever) | CPT/HCPCS: A0425; A0429 ==

== ENCOUNTER 2018-07-26 12:40 | Emergency (ER) | payer MEDICARE ==
--- NOTE | 2018-07-26 14:27 | XRAY Report ---
Reason: dyspnea, cough, and lower chest pain Procedure Date: 07/26/2018 Accession Number: [id number] / [id number] Procedure: XR - Chest 2 View X-Ray CPT Code: 82952 FULL RESULT: EXAM: CHEST RADIOGRAPHY EXAM DATE: 07/26/2018 02:19 PM. CLINICAL HISTORY: Dyspnea, cough, and lower chest pain. COMPARISON: 12/25/2017 TECHNIQUE: 2 views. FINDINGS: Lungs/Pleura: No focal opacities evident. No pleural effusion. No pneumothorax. Normal volumes. Mediastinum: Heart and mediastinal contours are unremarkable. Other: Mild degenerative change in the spine. Aortic calcification. IMPRESSION: Clear lungs. No acute findings. [facility]IA
--- NOTE | 2018-07-26 14:32 | ED Physician Documentation ---
History of Present Illness - Stated complaint Stated Complaint: BACK/RIB PAIN - Chief complaint Chief Complaint: General - History obtained from History obtained from: Patient - History of Present Illness Timing: How many days ago (3) - Additonal information Additional information: The patient is an insulin-dependent diabetic female who presents with nonproduct suresh cough of 2 or 3 days duration, now with associated bilateral rib pain. She reports nasal congestion and feels generally "lousy." She denies fever or shortness of breath. She denies headache, sore throat, nausea or vomiting. 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 Medics administered 4 baby aspirin, and checked a fingerstick blood sugar which was elevated at 296. The patient reports a history of chronic/recurrent urinary tract infections, and often feels lousy like this when she has a UTI. Review of Systems Constitutional: reports: Myalgias, Fatigue. denies: Fever Nose: reports: Congestion Throat: denies: Sore throat Cardiac: reports: Chest pain / pressure (Bilateral rib pain.) Respiratory: reports: Cough. 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125 mg PO DAILY 01/29/16 12/26/17 Insulin Detemir [Levemir Flextouch] 32 units SUBQ BID 05/15/17 12/26/17 Levothyroxine Sodium 175 mcg PO QDAC 05/15/17 12/26/17 Fluticasone [Flonase] 1 sprays YANIRA DAILY #6 bottle 05/18/17 12/26/17 Lactobacillus Acidophilus 1 each PO DAILY 16 Days #16 capsule 05/18/17 12/26/17 [Acidophilus Lactobacilli] Amox/Clav 875/125 [Augmentin] 1 each PO Q12H #14 tablet 12/28/17 Levothyroxine [Synthroid] 75 mcg PO QDAC #30 tablet 12/28/17 Levothyroxine [Synthroid] 112 mcg PO QDAC #30 tablet 12/28/17 Lisinopril 5 mg PO DAILY #30 tablet 12/28/17 Spironolactone [Aldactone] 25 mg PO DAILY #30 tablet 12/28/17 cephALEXin [Cephalexin] 500 mg PO TID #15 tablet 07/26/18 - Allergies Allergies/Adverse Reactions: Allergies Allergy/AdvReac Type Severity Reaction Status Date / Time No Known Drug Allergies Allergy Verified 07/26/18 12:47 - Social History Does the pt smoke?: No Smoking Status: Never smoker Does the pt drink ETOH?: No Does the pt have substance abuse?: No - Immunizations Immunizations are current?: Yes - POLST Patient has POLST: No POLST Status: Full Code PD ED PE NORMAL - Vitals Vital signs reviewed: Yes (Hypertensive.) - General General: Alert and oriented X 3, Well developed/nourished, Other (Obese.) - HEENT HEENT: Atraumatic, Pharynx benign - Neck Neck: Supple, no meningeal sign, No adenopathy - Cardiac Cardiac: RRR - Respiratory Respiratory: Clear bilaterally - Abdomen Abdomen: Soft, Non tender - Back Back: No CVA TTP - Derm Derm: No rash - Extremities Extremities: No calf tenderness / cord - Neuro Neuro: Alert and oriented X 3, No motor deficit, Normal speech Results - Vitals Vitals: Oxygen O2 Source [] Nasal cannula O2 Source Nasal cannula - Labs Labs: Microbiology 07/26/18 14:55 Urine Culture - Preliminary Urine,Catheterized Escherichia Coli Laboratory Tests 07/26/18 14:55 Urine Color YELLOW Urine Clarity HAZY Urine pH 5.5 Ur Specific [place] 1.025 Urine Protein TRACE Urine Glucose (UA) NEGATIVE Urine Ketones NEGATIVE Urine Occult Blood NEGATIVE Urine Nitrite NEGATIVE Urine Bilirubin NEGATIVE Urine Urobilinogen 0.2 (NORMAL) Ur Leukocyte Esterase LARGE H Urine RBC 0-5 Urine WBC >25 H Ur Squamous Epith Cells FEW Squamous Urine Bacteria Moderate H Ur Microscopic Review INDICATED Urine Culture Comments INDICATED - Rads (name of study) 2-view CXR Radiology: Prelim report reviewed, EMP read contemporaneously, See rad report (Clear lungs, no acute findings.) PD MEDICAL DECISION MAKING - ED course Complexity details: reviewed old records, reviewed results, re-evaluated patient, considered differential, d/w patient, d/w family ED course: The patient's presentation is most consistent with viral upper respiratory infection with cough, and acute urinary tract infection, without pyelonephritis or sepsis. Her urinalysis is positive for pyuria and bacteriuria. Culture and sensitivity are pending. Her chest x-ray reveals no evidence of pulmonary infiltrate. Treatment in the emergency department included administration of ibuprofen 800 mg orally, cephalexin 500 mg orally, and regular insulin 10 units subcutaneously for hyperglycemia. I discussed with her and her female marine electrician the diagnosis, outpatient treatment and follow-up, as well as potentially worrisome signs or symptoms that should prompt reevaluation in the emergency department. 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 Take cephalexin 3 times daily as prescribed. Continue your other medications, including insulin, as previously prescribed. Follow-up with your primary physician within 2 weeks. Call to schedule appointment. Return to the emergency department if you develop fever with shaking chills, increasing difficulty breathing, persistent vomiting, or otherwise worsening symptoms. Discharge Date/Time: 07/26/18 16:36
[2018-07-26] MEDS ORDERED: IBUPROFEN 800 MG TABLET PO STA (14:37)
[2018-07-26 15:08] LABS: BILIRUBIN,URINE NEGATIVE (NEGATIVE); GLUCOSE, URINE (UA) NEGATIVE (NEGATIVE); KETONES,URINE (UA) NEGATIVE (NEGATIVE); LEUKOCYTE ESTERASE, URINE LARGE (NEGATIVE); NITRITE,URINE NEGATIVE (NEGATIVE); OCCULT BLOOD,URINE NEGATIVE (NEGATIVE); PH,URINE 5.5 PH (5.0-7.5); PROTEIN,URINE TRACE mg/dL (NEGATIVE); UROBILINOGEN,URINE 0.2 (NORMAL) E.U./dL (NORMAL)
[2018-07-26 15:09] LABS: CLARITY,URINE HAZY (CLEAR)
[2018-07-26 15:15] VITALS: BP 163/86
[2018-07-26 15:17] LABS: BACTERIA,URINE Moderate /HPF (None Seen); RBC,URINE 0-5 /HPF (0-5); SQUAMOUS EPITHELIAL CELL,UR FEW Squamous (<= Few)
[2018-07-26] MEDS ORDERED: cephALEXin 250 MG CAPSULE PO STA (15:25)
[2018-07-26] MEDS ORDERED: INSULIN REGULAR HUMAN 100 UNIT/1 ML 10 ML MDV SUBQ STA (15:26)
== END 2018-07-26 16:36 | disposition home or self-care (01) ==
LOC: EDUNIT# → ED 12:40
DX: J06.9 Acute upper respiratory infection, unspecified (principal); B97.89 Other viral agents as the cause of diseases classified elsewhere; N30.00 Acute cystitis without hematuria; E11.65 Type 2 diabetes mellitus with hyperglycemia; Z79.4 Long term (current) use of insulin; I11.0 Hypertensive heart disease with heart failure; I50.9 Heart failure, unspecified; I25.10 Atherosclerotic heart disease of native coronary artery without angina pectoris; E78.00 Pure hypercholesterolemia, unspecified; E03.9 Hypothyroidism, unspecified
CPT/HCPCS: 71046; 81001; 87086; 87181; 99283; A9270; J1815; 81003

== ENCOUNTER 2018-08-04 11:11 | Outpatient (CLI) | payer MEDICARE | END 2018-08-04 11:12 | disposition short-term general hospital (02) | LOC: EMS 11:11 | PROVIDERS: ATTEND Surgery | DX: R09.89 Other specified symptoms and signs involving the circulatory and respiratory systems (principal) | CPT/HCPCS: A0425; A0427 ==

== ENCOUNTER 2018-08-22 22:58 | Outpatient (CLI) | payer MEDICARE | END 2018-08-22 22:59 | disposition critical access hospital (66) | LOC: EMS 22:58 | PROVIDERS: ATTEND Surgery | DX: R06.02 Shortness of breath (principal); R53.1 Weakness; R25.8 Other abnormal involuntary movements; R68.83 Chills (without fever); R11.0 Nausea | CPT/HCPCS: A0425; A0427 ==

== ENCOUNTER 2018-08-22 23:25 | Inpatient (IN) | payer MEDICARE ==
--- NOTE | 2018-08-23 00:02 | XRAY Report ---
Reason: SOA Procedure Date: 08/22/2018 Accession Number: [id number] / [id number] Procedure: XR - Chest 1 View X-Ray CPT Code: 14053 FULL RESULT: EXAM: CHEST RADIOGRAPHY EXAM DATE: 08/22/2018 11:47 PM. CLINICAL HISTORY: Short of breath COMPARISON: CHEST 2 VIEW 07/26/2018 2:09 PM. TECHNIQUE: 1 view. FINDINGS: Lungs/Pleura: No focal opacities evident. No pleural effusion. No pneumothorax. Mediastinum: Within exam limitations, the cardiomediastinal contour is normal. Other: None. IMPRESSION: Stable negative single view chest. RADIA
[2018-08-23 00:07] LABS: BASOPHILS # (AUTO) 0.1 10^3/uL (0.0-0.1); BASOPHILS % (AUTO) 0.6 %; EOSINOPHILS # (AUTO) 0.1 10^3/uL (0.0-0.7); EOSINOPHILS % (AUTO) 0.9 %; HGB - HEMOGLOBIN 11.2 g/dL (12.0-16.0); LYMPHOCYTES # (AUTO) 0.8 10^3/uL (1.5-3.5); LYMPHOCYTES % (AUTO) 5.7 %; MEAN CORPUSCULAR HEMOGLOBIN 30.5 pg (27.0-31.0); MEAN CORPUSCULAR HGB CONC 33.6 g/dL (32.0-36.0); MEAN CORPUSCULAR VOLUME 90.8 fL (81.0-99.0); MEAN PLATELET VOLUME 6.6 fL (7.9-10.8); MONOCYTES # (AUTO) 0.7 10^3/uL (0.0-1.0); MONOCYTES % (AUTO) 4.9 %; NEUTROPHILS # (AUTO) 12.9 10^3/uL (1.5-6.6); NEUTROPHILS % (AUTO) 87.9 %; PLT - PLATELET COUNT 517 10^3/uL (130-450); RED BLOOD COUNT 3.66 10^6/uL (4.20-5.40); RED CELL DISTRIBUTION WIDTH 12.3 % (12.0-15.0); WHITE BLOOD COUNT 14.7 x10^3/uL (4.8-10.8)
--- NOTE | 2018-08-23 00:08 | ED Physician Documentation ---
PD HPI DYSPNEA - Stated complaint Stated Complaint: WEAKNESS, SOA, CHILLS - Chief complaint Chief Complaint: Resp - History obtained from History obtained from: Patient, Family - History of Present Illness Timing - onset during: Rest Timing - duration: Days Timing - details: Gradual onset, Still present, Waxing and waning Inciting event(s): URI Improved by: Rest Worsened by: Exertion, Coughing Associated symptoms: Cough Similar symptoms before: Has not had sx before Recently seen: Not recently seen - Additional information Additional information: 82-year-old female with history of type 2 diabetes and congestive heart failure has developed fatigue and weakness over the past week. She states that today she was fatigued and weak enough that when she began to get short of breath she became super concerned and called the ambulance. Review of Systems Constitutional: denies: Fever, Chills, Myalgias Eyes: denies: Decreased vision Ears: denies: Ear pain Nose: reports: Rhinorrhea / runny nose, Congestion Throat: denies: Sore throat Cardiac: denies: Chest pain / pressure, Palpitations Respiratory: reports: Dyspnea, Cough GI: denies: Abdominal Pain, Nausea, Vomiting : denies: Dysuria, Frequency Musculoskeletal: denies: Neck pain, Back pain Neurologic: reports: Generalized weakness. 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: Other : Incontinence, Nocturia, Frequency HEENT: Chronic sinusitis, Chronic hearing loss Psych: Depression, Anxiety Musculoskeletal: Fatigue Derm: Other drug resistant infections - Past Surgical History Past Surgical History: Yes /FEED MILLER: Hysterectomy HEENT: Cataracts, Tonsil/Adenoidectomy - Present Medications Home Medications: Ambulatory Orders Medication Instructions Recorded Confirmed Lovastatin [Altoprev] 40 mg ORAL QPM 06/23/14 08/23/18 Insulin Regular, Human [Novolin R] 0 - 40 units SUBQ TIDWM 06/22/15 08/23/18 PARoxetine [Paxil] 40 mg PO QPM 06/22/15 08/23/18 Carvedilol 3.125 mg PO DAILY 01/29/16 08/23/18 Insulin Detemir [Levemir Flextouch] 32 units SUBQ BID 05/15/17 08/23/18 Levothyroxine [Synthroid] 75 mcg PO QDAC #30 tablet 12/28/17 08/23/18 Levothyroxine [Synthroid] 112 mcg PO QDAC #30 tablet 12/28/17 08/23/18 Lisinopril 5 mg PO DAILY #30 tablet 12/28/17 08/23/18 Spironolactone [Aldactone] 25 mg PO DAILY #30 tablet 12/28/17 08/23/18 - Allergies Allergies/Adverse Reactions: Allergies Allergy/AdvReac Type Severity Reaction Status Date / Time No Known Drug Allergies Allergy Verified 07/26/18 12:47 - Social History Does the pt smoke?: No Smoking Status: Never smoker Does the pt drink ETOH?: No Does the pt have substance abuse?: No - Immunizations Immunizations are current?: Yes - POLST Patient has POLST: No POLST Status: Full Code PD ED PE NORMAL - Vitals Vital signs reviewed: Yes (tachy and tachpneic with hypertension ) - General General: Alert and oriented X 3, Well developed/nourished, Other (The patient appears uncomfortable and akesthetic ) - HEENT HEENT: Atraumatic, PERRL, EOMI, Other (dry mucous membranes---parched) - Neck Neck: Supple, no meningeal sign, No bony TTP - Cardiac Cardiac: No murmur, Other (tachy) - Respiratory Respiratory: Other (tachypneic with clear sounds. 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 2-12 intact, No motor deficit, No sensory deficit, Normal speech Eye Opening: Spontaneous Motor: Obeys Commands Verbal: Oriented GCS Score: 15 - Psych Psych: Normal affect, Other (mood is anxious ) Results - Vitals Vitals: Vital Signs - 24 hr 08/22/18 08/22/18 08/22/18 23:28 23:38 23:58 Temperature 36.6 C Heart Rate 117 H 117 H 108 H Respiratory 26 H 26 H 19 Rate Blood Pressure 150/84 H 150/84 H 150/84 H O2 Saturation 94 96 95 08/23/18 08/23/18 08/23/18 00:27 00:30 01:00 Temperature 36.8 C Heart Rate 106 H 107 H 106 H Respiratory 21 28 H 24 Rate Blood Pressure 115/59 L 128/56 L 123/67 O2 Saturation 96 96 97 08/23/18 08/23/18 08/23/18 01:30 02:00 02:30 Temperature Heart Rate 98 94 89 Respiratory 13 24 17 Rate Blood Pressure 128/64 118/68 118/69 O2 Saturation 97 97 96 08/23/18 03:00 Temperature Heart Rate 85 Respiratory 25 H Rate Blood Pressure 118/78 O2 Saturation 97 Oxygen O2 Source [Without Activity] Nasal cannula O2 Source Nasal cannula Oxygen Flow Rate 4 - EKG (time done) 2332 Rate: Rate (enter#) (118) Rhythm: Sinus tachycardia Intervals: Prolonged QT, Wide QRS QRS: Low voltage Ischemia: Non specific changes Compare to prior EKG: Changed from prior EKG (SPT 11-24-2016 rate has increased QRS has widened and the QT is prolonged. ) Computer interpretation: Agree with computer - Labs Labs: Laboratory Tests 08/22/18 08/22/18 08/22/18 23:49 23:49 23:49 WBC 14.7 H RBC 3.66 L Hgb 11.2 L Hct 33.3 L MCV 90.8 MCH 30.5 MCHC 33.6 RDW 12.3 Plt Count 517 H MPV 6.6 L Neut # (Auto) 12.9 H Lymph # (Auto) 0.8 L [place] # (Auto) 0.7 Eos # (Auto) 0.1 Baso # (Auto) 0.1 Absolute Nucleated RBC 0.00 Nucleated RBC % 0.0 Sodium 125 L Potassium 6.1 H* Chloride 91 L Carbon Dioxide 23 Anion Gap 11.0 BUN 45 H Creatinine 1.3 H Estimated GFR (MDRD) 39 L Glucose 374 H Calcium 9.6 Total Bilirubin 0.7 AST 56 H ALT 69 H Alkaline Phosphatase 371 H Troponin I 0.10 B-Natriuretic Peptide Total Protein 7.7 Albumin 3.1 L Globulin 4.6 H Albumin/Globulin Ratio 0.7 L Lipase 154 H Influenza A (Rapid) Influenza B (Rapid) 08/22/18 08/23/18 08/23/18 23:49 01:58 02:53 WBC RBC Hgb Hct MCV MCH MCHC RDW Plt Count MPV Neut # (Auto) Lymph # (Auto) [place] # (Auto) Eos # (Auto) Baso # (Auto) Absolute Nucleated RBC Nucleated RBC % Sodium 127 L Potassium 5.9 H Chloride 95 L Carbon Dioxide 24 Anion Gap 8.0 BUN 44 H Creatinine 1.5 H Estimated GFR (MDRD) 33 L Glucose 345 H Calcium 9.4 Total Bilirubin AST ALT Alkaline Phosphatase Troponin I B-Natriuretic Peptide 66 Total Protein Albumin Globulin Albumin/Globulin Ratio Lipase Influenza A (Rapid) Negative Influenza B (Rapid) Negative - Rads (name of study) chest one view Radiology: Prelim report reviewed (Impression: Stable negative single view chest.), EMP read indepedently, See rad report Procedures - IVC sono (time) 2340 Bedside IVC sono: IVC measures (cm) (unable to see vessle or small vessle is present 0.72cm), Significant dehydration (est 2+ liter deficit) PD MEDICAL DECISION MAKING - ED course Complexity details: reviewed old records, reviewed results, re-evaluated patient, considered differential, d/w patient, d/w family ED course: 82-year-old female with history of type 2 diabetes and congestive heart failure is on 3 diuretics and her blood sugar is elevated over 300 this morning. She is markedly dehydrated and has evidence of acute kidney injury related to dehydration. On arrival her potassium is 6.1. She is administered saline and an insulin drip is started at 6 units/h. She will need continued hydration at a slower rate because of her history of congestive heart failure. She will need admission to the hospital. Departure - Departure Disposition: ED Place in Observation Clinical Impression: LILY (acute kidney injury), Dehydration, Hyponatremia
[2018-08-23 00:30] LABS: ALBUMIN 3.1 g/dL (3.2-5.5); ALBUMIN/GLOBULIN RATIO 0.7 (1.0-2.2); BILIRUBIN,TOTAL 0.7 mg/dL (0.2-1.0); CALCIUM 9.6 mg/dL (8.5-10.3); CREATININE 1.3 mg/dL (0.4-1.0); TOTAL PROTEIN 7.7 g/dL (6.7-8.2)
[2018-08-23] MEDS ORDERED: SODIUM CHLORIDE 0.9% 1,000 ML IV ONE ×2 (01:53→07:21)
[2018-08-23] MEDS ORDERED: INSULIN REGULAR HUMAN 100 UNIT in SODIUM CHLORIDE 0.9% 100ML 99 ML IV STA (01:53)
[2018-08-23 02:11] LABS: CALCIUM 9.4 mg/dL (8.5-10.3); CREATININE 1.5 mg/dL (0.4-1.0)
[2018-08-23] MEDS ORDERED: ACETAMINOPHEN 325 MG TABLET PO PRN (03:07)
[2018-08-23 05:23] LABS: BASOPHILS # (AUTO) 0.1 10^3/uL (0.0-0.1); BASOPHILS % (AUTO) 0.4 %; EOSINOPHILS % (AUTO) 0.1 %; HGB - HEMOGLOBIN 10.8 g/dL (12.0-16.0); LYMPHOCYTES # (AUTO) 1.2 10^3/uL (1.5-3.5); LYMPHOCYTES % (AUTO) 6.6 %; MEAN CORPUSCULAR HEMOGLOBIN 31.2 pg (27.0-31.0); MEAN CORPUSCULAR HGB CONC 34.3 g/dL (32.0-36.0); MEAN PLATELET VOLUME 6.5 fL (7.9-10.8); MONOCYTES # (AUTO) 1.7 10^3/uL (0.0-1.0); MONOCYTES % (AUTO) 9.6 %; NEUTROPHILS # (AUTO) 14.7 10^3/uL (1.5-6.6); NEUTROPHILS % (AUTO) 83.3 %; PLT - PLATELET COUNT 504 10^3/uL (130-450); RED BLOOD COUNT 3.45 10^6/uL (4.20-5.40); RED CELL DISTRIBUTION WIDTH 12.5 % (12.0-15.0); WHITE BLOOD COUNT 17.7 x10^3/uL (4.8-10.8)
[2018-08-23 06:03] LABS: HB2 TOTAL 11.6 g/dL; HEMOGLOBIN A1C 1.07 g/dL; HEMOGLOBIN A1C % 10.6 % (4.6-6.2)
[2018-08-23 06:05] LABS: CALCIUM 9.5 mg/dL (8.5-10.3); CREATININE 1.6 mg/dL (0.4-1.0)
[2018-08-23] MEDS ORDERED: INSULIN REGULAR HUMAN 100 UNIT/1 ML 10 ML MDV IVP STA (06:23)
[2018-08-23] MEDS ORDERED: DEXTROSE 50% ABBOJECT 25 GM/50 ML SYRINGE IVP STA (06:24)
[2018-08-23] MEDS ORDERED: ALBUTEROL NEB 2.5 MG/3 ML INH ONE ×2 (06:25)
[2018-08-23] MEDS: SODIUM CHLORIDE 0.9% 1,000 ML IV SCH ×4 (06:30→23:00)
--- NOTE | 2018-08-23 06:51 | HISTORY & PHYSICAL EXAMINATION ---
Chief Complaint - Chief Complaint Chief Complaint: dyspnea History of Present Illness - Admitted From [facility] - History Obtained From Records Reviewed: yes History obtained from: patient - History of Present Illness HPI Comment/Other: Patient is an 82 y/o morbidly obese female who presented to the ED with complain of erratic breathing, shaking and cold. She is on oxygen via nasal cannula at home and uses 2L. She reports a mild cough but denies wheezing, chest pain or fever. A younger couple lives in her house and help provide her care. One of them has been sick with a cold lately. She denies muscle aches. Here presentation was largely unremarkable except her lab work up reveal a potassium of 6.1 which had trended to 6.3. She has a Cr of 1.3 which has now trended to 1.6 and a GFR of 31. Her baseline creatinine over the past couple of years has been about 1.1. She was also found to have a blood glucose of 374. She has a history of CHF and is on lasix, HCTZ, lisinopril and ?spironolactone at home. She is also on potassium supplements. 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: Other : reports: Incontinence, Nocturia, Frequency HEENT: reports: Chronic sinusitis, Chronic hearing loss Psych: reports: Depression, Anxiety Musculoskeletal: reports: Fatigue Derm: reports: Other drug resistant infections MRSA Hx?: Yes - Past Surgical History /HAT COPYIST: reports: Hysterectomy HEENT: reports: Cataracts, Tonsil/Adenoidectomy - Family & Social History Family History: Mother: , Alzheimer's Disease, Father: , Sister: , Other family: Family History Comment/Other: The patient's father at age 40 of pulmonary embolism and the patient's mother at age 84 of complications of Alzheimer's disease. The patient had a daughter with Down syndrome who recently at age 59, and denies any history of cancer or heart disease in the family. Her sister of a cerebral aneurysm. - Substance History Use: Uses substance without health or social issues: NONE - POLST Patient has POLST: No POLST Status: Full Code Meds/Allgy - Home Medications Home Medications: Ambulatory Orders Medication Instructions Recorded Confirmed Lovastatin [Altoprev] 40 mg ORAL QPM 06/23/14 08/23/18 Insulin Regular, Human [Novolin R] 0 - 40 units SUBQ TIDWM 06/22/15 08/23/18 PARoxetine [Paxil] 40 mg PO QPM 06/22/15 08/23/18 Carvedilol 3.125 mg PO DAILY 01/29/16 08/23/18 Insulin Detemir [Levemir Flextouch] 32 units SUBQ BID 05/15/17 08/23/18 Levothyroxine [Synthroid] 75 mcg PO QDAC #30 tablet 12/28/17 08/23/18 Levothyroxine [Synthroid] 112 mcg PO QDAC #30 tablet 12/28/17 08/23/18 Lisinopril 5 mg PO DAILY #30 tablet 12/28/17 08/23/18 Spironolactone [Aldactone] 25 mg PO DAILY #30 tablet 12/28/17 08/23/18 - Allergies Allergies/Adverse Reactions: Allergies Allergy/AdvReac Type Severity Reaction Status Date / Time No Known Drug Allergies Allergy Verified 07/26/18 12:47 Review of Systems - Constitutional Constitutional: reports: Weakness. denies: Fever, Chills - Eyes Eyes: denies: Blurred vision, Vision loss, Dipolpia - Ears, Nose & Throat Ears, Nose & Throat: denies: Vertigo, Nasal pain, Nasal discharge, Sore throat, Hoarseness - Respiratory Respiratory: reports: Cough, Snoring, SOB at rest. denies: Sputum production, Wheezing - Gastrointestinal Gastrointestinal: denies: Abdominal pain, Abdominal distention, Constipation, Nausea, Vomiting - Genitourinary Genitourinary: denies: Dysuria, Frequency, Urgency, Hematuria - Neurological Neurological: denies: Headache, Dizziness - Psychiatric Psychiatric: denies: Depression, Anxiety - Endocrine Endocrine: denies: Polyuria, Polydypsia - Hematologic/Lymphatic Hematologic/Lymphatic: denies: Anemia, Bruising Prior Level of Functionality: Lives in her house A younger couple live with her and act as her care givers Exam - Vital Signs Vital Signs: Vital Signs x48h Temp Pulse Pulse Resp BP BP Pulse Ox 08/23/18 04:48 37.1 C 79 18 115/68 96 08/23/18 04:00 82 15 95 08/23/18 03:30 91 20 115/57 L 95 08/23/18 03:20 37 C 08/23/18 03:00 85 25 H 118/78 97 08/23/18 02:30 89 17 118/69 96 08/23/18 02:00 94 24 118/68 97 08/23/18 01:30 98 13 128/64 97 08/23/18 01:00 106 H 24 123/67 97 08/23/18 00:30 107 H 28 H 128/56 L 96 08/23/18 00:27 36.8 C 106 H 21 115/59 L 96 08/22/18 23:58 108 H 19 150/84 H 95 08/22/18 23:38 117 H 26 H 150/84 H 96 08/22/18 23:28 36.6 C 117 H 26 H 150/84 H 94 - Physical Exam General Appearance: positive: No acute distress, Alert Eyes Bilateral: positive: Normal inspection, PERRL, EOMI ENT: positive: ENT inspection nml, Dry mucous membranes Neck: positive: Nml inspection, No JVD, Trachea midline Respiratory: positive: Chest non-tender, Breath sounds nml. negative: Wheezes, Rales, Rhonchi Cardiovascular: positive: Regular rate & rhythm, No murmur, No gallop Abdomen: positive: Non-tender, No organomegaly, Nml bowel sounds, No distention, Other (obese abdomen) Back: positive: Nml inspection Skin: positive: Color nml, No rash, Warm, Dry Extremities: positive: Non-tender Neurologic/Psychiatric: positive: Oriented x3 Sepsis Event Note (H) - Evaluation Current Stage of Sepsis: Sepsis - Sepsis Criteria Sepsis Criteria: WBC count greater than 12,000 or less than 4000 Conclusion/Plan - Problem List (1) LILY (acute kidney injury) Conclusion/Plan: Likely a combination of poor po intake while taking medication Baseline Cr. for the past couple of years has been 1.1 Will hold lasix, HCTZ, ?spironolactone, lisinopril and potassium supplement Actively hydrating patient (2) Hyperkalemia Conclusion/Plan: Patient received a total of 2L of Normal Saline bolus Will continue at 150ml/hr. Patient given Regular insulin 10mg IV X1 with 25ml of D50 Patient given Kayexalate 15mg po and received an albuterol breathing treatment Serial BMP q4hrs in the ICU (3) Diabetes mellitus type II, uncontrolled Conclusion/Plan: Patient on lantus 32units subq bid High dose sliding scale insulin ordered Qualifiers: Glycemic state: with hyperglycemia Qualified Code(s): E11.65 - Type 2 diabetes mellitus with hyperglycemia (4) Congestive heart failure Conclusion/Plan: Not in exacerbation. On the contrary, patient is volume depleted Will hold all diuretic while actively hydrating patient (5) Hypothyroidism Conclusion/Plan: On levothyroxine 75mcg daily Qualifiers: Hypothyroidism type: acquired Qualified Code(s): E03.9 - Hypothyroidism, unspecified (6) HTN (hypertension) Conclusion/Plan: Lisinopril, spironolactone, lasix and hctz held Continue carvedilol Qualifiers: Hypertension type: essential hypertension Qualified Code(s): I10 - Essential (primary) hypertension (7) Coronary artery disease Conclusion/Plan: on carvedilol. Lisinopril held (8) Depression with anxiety Conclusion/Plan: On paxil - Lab Results Fish Bones: 08/23/18 05:08 08/23/18 05:08
[2018-08-23] MEDS ORDERED: SODIUM POLYSTYRENE SULFONATE 15 GM/60 ML BOTTLE PO ONE (06:52)
[2018-08-23] MEDS ORDERED: ALBUTEROL NEB 2.5 MG/3 ML INH PRN (07:29)
[2018-08-23] MEDS: INSULIN ASPART 300 UNIT/3 ML PEN SUBQ SCH ×3 (08:34→17:06)
[2018-08-23] MEDS: HEPARIN 5,000 UNIT/ML VIAL SUBQ SCH ×2 (08:34→21:02)
[2018-08-23] MEDS: POLYETHYLENE GLYCOL 3350 17 GM PACKET PO SCH ×2 (08:35→08:43)
[2018-08-23] MEDS: SODIUM CHLORIDE FLUSH 0.9% 10 ML SYRINGE IVP SCH ×2 (08:35→17:17)
[2018-08-23] MEDS ORDERED: INSULIN GLARGINE 300 UNIT/3 ML PEN SUBQ SCH (09:00)
[2018-08-23 09:49] LABS: CALCIUM 8.5 mg/dL (8.5-10.3); CREATININE 1.6 mg/dL (0.4-1.0)
[2018-08-23 10:30] LABS: BILIRUBIN,URINE NEGATIVE (NEGATIVE); GLUCOSE, URINE (UA) NEGATIVE (NEGATIVE); KETONES,URINE (UA) NEGATIVE (NEGATIVE); LEUKOCYTE ESTERASE, URINE MODERATE (NEGATIVE); NITRITE,URINE NEGATIVE (NEGATIVE); OCCULT BLOOD,URINE TRACE-INTA (NEGATIVE); PH,URINE 5.5 PH (5.0-7.5); PROTEIN,URINE NEGATIVE (NEGATIVE); UROBILINOGEN,URINE 0.2 (NORMAL) E.U./dL (NORMAL)
[2018-08-23 10:31] LABS: CLARITY,URINE HAZY (CLEAR)
[2018-08-23 10:40] LABS: BACTERIA,URINE Few /HPF (None Seen); CASTS, URINE 11-25 Hyaline Casts /LPF; RBC,URINE 0-5 /HPF (0-5); SQUAMOUS EPITHELIAL CELL,UR FEW Squamous (<= Few)
[2018-08-23] MEDS: LEVOTHYROXINE 75 MCG TABLET PO SCH (12:20)
[2018-08-23] MEDS: LEVOTHYROXINE 112 MCG TABLET PO SCH (12:20)
[2018-08-23] MEDS: CARVEDILOL 3.125 MG TABLET PO SCH (12:20)
[2018-08-23] MEDS: NYSTATIN POWDER 15 GM TOP SCH ×2 (12:21→21:19)
[2018-08-23 13:30] LABS: CREATININE 1.5 mg/dL (0.4-1.0)
[2018-08-23 13:54] LABS: CALCIUM 8.9 mg/dL (8.5-10.3)
[2018-08-23 16:16] LABS: CALCIUM 8.5 mg/dL (8.5-10.3); CREATININE 1.4 mg/dL (0.4-1.0)
[2018-08-23 16:20] LABS: VBG PCO2 60.4 mmHg (41-51); VBG PH 7.275 (7.31-7.41)
[2018-08-23 16:21] LABS: VBG BASE EXCESS -0.3 mmol/L (-2 - +2); VBG PO2 52.2 mmHg (25-47); VBG TOTAL CO2 29.3 mmol/L (24-29)
[2018-08-23] MEDS: FAMOTIDINE 20 MG TABLET PO SCH (16:27)
[2018-08-23] MEDS: INSULIN REGULAR HUMAN IV SCH (16:30)
[2018-08-23] MEDS: DEXTROSE 5% IV SCH (16:30)
[2018-08-23 19:15] LABS: CALCIUM 8.8 mg/dL (8.5-10.3); CREATININE 1.5 mg/dL (0.4-1.0)
[2018-08-23] MEDS: PARoxetine 10 MG TABLET PO SCH (20:59)
[2018-08-23] MEDS: ATORVASTATIN 10 MG TABLET PO SCH (21:01)
[2018-08-23 23:22] LABS: CALCIUM 8.3 mg/dL (8.5-10.3); CREATININE 1.5 mg/dL (0.4-1.0)
[2018-08-23] MEDS: INSULIN GLARGINE 300 UNIT/3 ML PEN SUBQ SCH (23:46)
[2018-08-24] MEDS: SODIUM CHLORIDE FLUSH 0.9% 10 ML SYRINGE IVP SCH ×4 (03:00→23:39)
[2018-08-24] MEDS: INSULIN REGULAR HUMAN IV SCH (03:00)
[2018-08-24] MEDS: DEXTROSE 5% IV SCH (03:00)
[2018-08-24 03:21] LABS: BASOPHILS # (AUTO) 0.1 10^3/uL (0.0-0.1); BASOPHILS % (AUTO) 0.6 %; EOSINOPHILS # (AUTO) 0.1 10^3/uL (0.0-0.7); EOSINOPHILS % (AUTO) 0.9 %; HGB - HEMOGLOBIN 9.6 g/dL (12.0-16.0); LYMPHOCYTES # (AUTO) 1.4 10^3/uL (1.5-3.5); LYMPHOCYTES % (AUTO) 9.2 %; MEAN CORPUSCULAR HEMOGLOBIN 29.8 pg (27.0-31.0); MEAN CORPUSCULAR HGB CONC 32.5 g/dL (32.0-36.0); MEAN CORPUSCULAR VOLUME 91.7 fL (81.0-99.0); MEAN PLATELET VOLUME 6.2 fL (7.9-10.8); MONOCYTES # (AUTO) 1.9 10^3/uL (0.0-1.0); MONOCYTES % (AUTO) 12.2 %; NEUTROPHILS # (AUTO) 12.1 10^3/uL (1.5-6.6); NEUTROPHILS % (AUTO) 77.1 %; PLT - PLATELET COUNT 478 10^3/uL (130-450); RED BLOOD COUNT 3.22 10^6/uL (4.20-5.40); RED CELL DISTRIBUTION WIDTH 12.4 % (12.0-15.0); VBG PH 7.345 (7.31-7.41); WHITE BLOOD COUNT 15.7 x10^3/uL (4.8-10.8)
[2018-08-24 03:32] LABS: CALCIUM 8.5 mg/dL (8.5-10.3); CREATININE 1.4 mg/dL (0.4-1.0); MAGNESIUM 1.8 mg/dL (1.7-2.8); PHOSPHORUS 2.6 mg/dL (2.5-4.6)
[2018-08-24] MEDS: LEVOTHYROXINE 112 MCG TABLET PO SCH (06:37)
[2018-08-24] MEDS: LEVOTHYROXINE 75 MCG TABLET PO SCH (06:37)
[2018-08-24 07:44] LABS: CALCIUM 8.3 mg/dL (8.5-10.3); CREATININE 1.4 mg/dL (0.4-1.0)
[2018-08-24 07:51] LABS: HB2 TOTAL 9.9 g/dL; HEMOGLOBIN A1C 0.92 g/dL; HEMOGLOBIN A1C % 10.7 % (4.6-6.2)
[2018-08-24] MEDS: INSULIN ASPART 300 UNIT/3 ML PEN SUBQ SCH ×4 (08:08→20:49)
[2018-08-24] MEDS: FAMOTIDINE 20 MG TABLET PO SCH (09:20)
[2018-08-24] MEDS: CARVEDILOL 3.125 MG TABLET PO SCH (09:20)
[2018-08-24] MEDS: POLYETHYLENE GLYCOL 3350 17 GM PACKET PO SCH (09:22)
[2018-08-24] MEDS: HEPARIN 5,000 UNIT/ML VIAL SUBQ SCH ×2 (09:24→20:36)
[2018-08-24] MEDS: INSULIN GLARGINE 300 UNIT/3 ML PEN SUBQ SCH ×2 (09:27→20:48)
[2018-08-24] MEDS: NYSTATIN POWDER 15 GM TOP SCH ×2 (09:29→20:35)
[2018-08-24] MEDS: SODIUM CHLORIDE 0.9% 1,000 ML IV SCH ×2 (14:09→21:15)
--- NOTE | 2018-08-24 15:31 | PROVIDER PROGRESS NOTE ---
Assessment/Plan - Problem List (1) LILY (acute kidney injury) Assessment/Plan: Improving slowly. Continue gentle hydration. Follow BMP daily. (2) Hyperkalemia Assessment/Plan: Improved after overnight on iv Insulin drip. Will start po kayexelate if K rises again. (3) COPD exacerbation Assessment/Plan: She is on chronic Home O2. Continue present management (4) E. coli UTI Assessment/Plan: Wll start oral Cipro for 3 days. (5) Diabetes mellitus with hyperglycemia Qualifiers: Diabetes mellitus type: type 2 Diabetes mellitus long term care pharmacist insulin use: with detention use Qualified Code(s): E11.65 - Type 2 diabetes mellitus with hyperglycemia; Z79.4 - USP (current) use of insulin Assessment/Plan: She is off the Insulin drip and back on her bid LAntus and ss Insulin, carb controlled diet. She can be moved out of the ICU (6) Morbid obesity Assessment/Plan: Dietary consult needed for teaching. (7) Anemia Assessment/Plan: Will check B12, Fiolate, Iron panel and guiac of stool. Replace if low. (8) Hypothyroidism Qualifiers: Hypothyroidism type: acquired Qualified Code(s): E03.9 - Hypothyroidism, un specified Assessment/Plan: Pt on her replacement meds (9) Coronary artery disease Assessment/Plan: Tropoonins neg. (10) Depression with anxiety Assessment/Plan: Pt is on her usual meds - Current Meds Current Meds: Current Medications Generic Name Dose Route Start Last Admin Trade Name Freq PRN Reason Stop Dose Admin Atorvastatin Calcium 10 mg 08/23/18 21:00 08/23/18 21:01 Lipitor PO 10 mg QPM SHANNAN Administration Carvedilol 3.125 mg 08/23/18 09:00 08/24/18 09:20 Coreg PO 3.125 mg DAILY SHANNAN Administration Famotidine 20 mg 08/23/18 17:00 08/24/18 09:20 Pepcid PO 20 mg DAILY SHANNAN Administration Heparin Sodium (Porcine) 5,000 unit 08/23/18 09:00 08/24/18 09:24 SUBQ 5,000 unit BID SHANNAN Administration Sodium Chloride 1,000 mls @ 75 mls/hr 08/24/18 06:03 08/24/18 14:09 Normal Saline 0.9% IV 75 mls/hr .[id number] SHANNAN Administration Insulin Aspart 3 - 11 unit 08/24/18 08:00 08/24/18 11:49 Novolog SUBQ 11 unit 0800,1200,1700,2100 SHANNAN Administration Protocol Insulin Glargine 32 unit 08/23/18 23:45 08/24/18 09:27 Lantus Solostar SUBQ 32 unit BID SHANNAN Administration Levothyroxine Sodium 75 mcg 08/23/18 10:00 08/24/18 06:37 Synthroid PO 75 mcg QDAC SHANNAN Administration Levothyroxine Sodium 112 mcg 08/23/18 10:00 08/24/18 06:37 Synthroid PO 112 mcg QDAC SHANNAN Administration Nystatin 1 applic 08/23/18 12:00 08/24/18 09:29 Nystop TOP Not Given BID SHANNAN Paroxetine HCl 40 mg 08/23/18 21:00 08/23/18 20:59 Paxil PO 40 mg QPM SHANNAN Administration Polyethylene Glycol 17 gm 08/23/18 09:00 08/24/18 09:22 Miralax PO 17 gm DAILY SHANNAN Administration Sodium Chloride 10 ml 08/23/18 09:00 08/24/18 09:29 Normal Saline Flush 0.9% IVP 10 ml 0100,0900,1700 SHANNAN Administration - Lab Result Fish Bone Diagrams: 08/24/18 03:13 08/24/18 07:20 - Additional Planning My Orders: My Active Orders 08/23/18 15:41 Initiate DKA RN Protocol [RC] .protocol Initiate ICU Electrolyte Prot. [RC] .protocol 08/23/18 17:00 Famotidine [Pepcid] 20 mg PO DAILY 08/25/18 05:00 MAGNESIUM [CHEM] DAILYLAB PHOSPHORUS [CHEM] DAILYLAB 08/26/18 05:00 MAGNESIUM [CHEM] DAILYLAB PHOSPHORUS [CHEM] DAILYLAB Subjective - Subjective Patient Reports: Feeling Better Nursing Reports: Other (Declined PT, wanted it after lunch) Objective Vital Signs: Vital Signs - 24 hr 08/23/18 08/23/18 08/23/18 16:00 17:00 18:00 Temperature 35.9 C L Heart Rate Heart Rate [ Monitoring electrodes] Heart Rate [ 72 76 76 Radial] Heart Rate [ Supine] Respiratory 16 15 17 Rate Respiratory Rate [Without Activity] Blood Pressure 112/33 L 128/61 135/62 H [Right Radial artery] Blood Pressure [Supine] O2 Saturation 95 97 96 O2 Saturation [ Without Activity] 08/23/18 08/23/18 08/23/18 19:00 19:39 20:00 Temperature 37.6 C H Heart Rate Heart Rate [ Monitoring electrodes] Heart Rate [ 80 84 Radial] Heart Rate [ Supine] Respiratory 17 22 Rate Respiratory Rate [Without Activity] Blood Pressure 124/71 123/66 [Right Radial artery] Blood Pressure [Supine] O2 Saturation 97 95 O2 Saturation [ Without Activity] 08/23/18 08/23/18 08/23/18 20:35 21:00 22:00 Temperature Heart Rate 80 Heart Rate [ 83 80 Monitoring electrodes] Heart Rate [ Radial] Heart Rate [ Supine] Respiratory 16 27 H 16 Rate Respiratory Rate [Without Activity] Blood Pressure 121/61 116/54 L [Right Radial artery] Blood Pressure [Supine] O2 Saturation 98 97 O2 Saturation [ Without Activity] 08/23/18 08/24/18 08/24/18 23:00 00:00 01:00 Temperature 37.3 C Heart Rate Heart Rate [ 86 84 80 Monitoring electrodes] Heart Rate [ Radial] Heart Rate [ Supine] Respiratory 19 24 17 Rate Respiratory Rate [Without Activity] Blood Pressure 119/56 L 98/63 110/61 [Right Radial artery] Blood Pressure [Supine] O2 Saturation 96 95 96 O2 Saturation [ Without Activity] 08/24/18 08/24/18 08/24/18 02:00 03:00 04:00 Temperature 36.6 C Heart Rate Heart Rate [ 83 85 83 Monitoring electrodes] Heart Rate [ Radial] Heart Rate [ Supine] Respiratory 18 18 28 H Rate Respiratory Rate [Without Activity] Blood Pressure 135/62 H 118/53 L 130/54 L [Right Radial artery] Blood Pressure [Supine] O2 Saturation 97 97 96 O2 Saturation [ Without Activity] 08/24/18 08/24/18 08/24/18 05:00 06:00 07:00 Temperature Heart Rate Heart Rate [ 89 85 85 Monitoring electrodes] Heart Rate [ Radial] Heart Rate [ Supine] Respiratory 17 19 Rate Respiratory Rate [Without Activity] Blood Pressure 119/79 114/58 L 129/63 [Right Radial artery] Blood Pressure [Supine] O2 Saturation 94 97 94 O2 Saturation [ Without Activity] 08/24/18 08/24/18 08/24/18 08:00 10:15 11:43 Temperature 37.7 C H 37.1 C Heart Rate 83 Heart Rate [ 84 72 Monitoring electrodes] Heart Rate [ Radial] Heart Rate [ Supine] Respiratory 17 18 17 Rate Respiratory Rate [Without Activity] Blood Pressure 120/66 156/78 H [Right Radial artery] Blood Pressure [Supine] O2 Saturation 95 95 O2 Saturation [ Without Activity] 08/24/18 12:42 Temperature Heart Rate Heart Rate [ Monitoring electrodes] Heart Rate [ Radial] Heart Rate [ 74 Supine] Respiratory Rate Respiratory 15 Rate [Without Activity] Blood Pressure [Right Radial artery] Blood Pressure 156/78 H [Supine] O2 Saturation O2 Saturation [ 95 Without Activity] Oxygen O2 Source [Without Activity] Nasal cannula O2 Source Nasal cannula Oxygen Flow Rate 4 I&O (Last 24 Hrs): Intake and Output Totals x24h 08/22/18 08/23/18 08/24/18 23:59 23:59 23:59 Intake Total 5202.433 1332.5 Output Total 960 997 Balance 4242.433 335.5 General: Other (Sleeping) HEENT: Mucous membr. moist/pink Neck: Supple, Other (Obese) Neuro: Non Focal Cardiovascular: No murmurs Respiratory: No respiratory distress Abdomen: Soft, Other (Obese with a pannus, inguinal folds red) Extremities: No edema - Results Results: Laboratory Results WBC 15.7 x10^3/uL (4.8-10.8) H 08/24/18 03:13 RBC 3.22 10^6/uL (4.20-5.40) L 08/24/18 03:13 Hgb 9.6 g/dL (12.0-16.0) L 08/24/18 03:13 Hct 29.5 % (37.0-47.0) L 08/24/18 03:13 MCV 91.7 fL (81.0-99.0) 08/24/18 03:13 MCH 29.8 pg (27.0-31.0) 08/24/18 03:13 MCHC 32.5 g/dL (32.0-36.0) 08/24/18 03:13 RDW 12.4 % (12.0-15.0) 08/24/18 03:13 Plt Count 478 10^3/uL (130-450) H 08/24/18 03:13 MPV 6.2 fL (7.9-10.8) L 08/24/18 03:13 Neut # (Auto) 12.1 10^3/uL (1.5-6.6) H 08/24/18 03:13 Lymph # (Auto) 1.4 10^3/uL (1.5-3.5) L 08/24/18 03:13 [place] # (Auto) 1.9 10^3/uL (0.0-1.0) H 08/24/18 03:13 Eos # (Auto) 0.1 10^3/uL (0.0-0.7) 08/24/18 03:13 Baso # (Auto) 0.1 10^3/uL (0.0-0.1) 08/24/18 03:13 Absolute Nucleated RBC 0.00 x10^3/uL 08/24/18 03:13 Nucleated RBC % 0.0 /100WBC 08/24/18 03:13 VBG pH 7.345 (7.31-7.41) 08/24/18 03:13 VBG pCO2 60.4 mmHg (41-51) H 08/23/18 16:00 VBG pO2 52.2 mmHg (25-47) H 08/23/18 16:00 VBG HCO3 27.4 mmol/L (23-28) 08/23/18 16:00 VBG Total CO2 29.3 mmol/L (24-29) H 08/23/18 16:00 VBG O2 Saturation 86.2 % (60-80) H 08/23/18 16:00 VBG Base Excess -0.3 mmol/L (-2 - +2) 08/23/18 16:00 Ionized Calcium 1.15 mmol/L (1.15-1.33) 08/24/18 03:13 Sodium 128 mmol/L (135-145) L 08/24/18 07:20 Potassium 4.9 mmol/L (3.5-5.0) 08/24/18 07:20 Chloride 98 mmol/L (101-111) L 08/24/18 07:20 Carbon Dioxide 23 mmol/L (21-32) 08/24/18 07:20 Anion Gap 7.0 (6-13) 08/24/18 07:20 BUN 35 mg/dL (6-20) H 08/24/18 07:20 Creatinine 1.4 mg/dL (0.4-1.0) H 08/24/18 07:20 Estimated GFR (MDRD) 36 (>89) L 08/24/18 07:20 Glucose 255 mg/dL (70-100) H 08/24/18 07:20 POC Whole Bld Glucose 335 mg/dL (70 - 100) H 08/24/18 11:29 Glycated Hemoglobin 10.7 % (4.6-6.2) H 08/24/18 07:20 Estim Average Glucose 260 (70-100) H 08/24/18 07:20 Lactic Acid 1.3 mmol/L (0.5-2.2) 08/23/18 09:25 Calcium 8.3 mg/dL (8.5-10.3) L 08/24/18 07:20 Phosphorus 2.6 mg/dL (2.5-4.6) 08/24/18 03:13 Magnesium 1.8 mg/dL (1.7-2.8) 08/24/18 03:13 Total Bilirubin 0.7 mg/dL (0.2-1.0) 08/22/18 23:49 AST 56 IU/L (10-42) H 08/22/18 23:49 ALT 69 IU/L (10-60) H 08/22/18 23:49 Alkaline Phosphatase 371 IU/L (42-121) H 08/22/18 23:49 Troponin I 0.10 ng/mL (<0.49) 08/22/18 23:49 B-Natriuretic Peptide 66 pg/mL (5-100) 08/22/18 23:49 Total Protein 7.7 g/dL (6.7-8.2) 08/22/18 23:49 Albumin 3.1 g/dL (3.2-5.5) L 08/22/18 23:49 Globulin 4.6 g/dL (2.1-4.2) H 08/22/18 23:49 Albumin/Globulin Ratio 0.7 (1.0-2.2) L 08/22/18 23:49 Lipase 154 U/L (22-51) H 08/22/18 23:49 Urine Color YELLOW 08/23/18 09:00 Urine Clarity HAZY (CLEAR) 08/23/18 09:00 Urine pH 5.5 PH (5.0-7.5) 08/23/18 09:00 Ur Specific [place] 1.025 (1.002-1.030) 08/23/18 09:00 Urine Protein NEGATIVE mg/dL (NEGATIVE) 08/23/18 09:00 Urine Glucose (UA) NEGATIVE mg/dL (NEGATIVE) 08/23/18 09:00 Urine Ketones NEGATIVE mg/dL (NEGATIVE) 08/23/18 09:00 Urine Occult Blood TRACE-INTA (NEGATIVE) 08/23/18 09:00 Urine Nitrite NEGATIVE (NEGATIVE) 08/23/18 09:00 Urine Bilirubin NEGATIVE (NEGATIVE) 08/23/18 09:00 Urine Urobilinogen 0.2 (NORMAL) E.U./dL (NORMAL) 08/23/18 09:00 Ur Leukocyte Esterase MODERATE (NEGATIVE) H 08/23/18 09:00 Urine RBC 0-5 /HPF (0-5) 08/23/18 09:00 Urine WBC >25 /HPF (0-5) H 08/23/18 09:00 Ur Squamous Epith Cells FEW Squamous (<= Few) 08/23/18 09:00 Urine Bacteria Few /HPF (None Seen) 08/23/18 09:00 Urine Casts 11-25 Hyaline Casts /LPF 08/23/18 09:00 Ur Microscopic Review INDICATED 08/23/18 09:00 Urine Culture Comments INDICATED 08/23/18 09:00 Nasal Screen MRSA (PCR) NEGATIVE (NEGATIVE) 08/23/18 10:18 Influenza A (Rapid) Negative (Negative) 08/23/18 02:53 Influenza B (Rapid) Negative (Negative) 08/23/18 02:53 Sepsis Event Note (H) - Evaluation Current Stage of Sepsis: Sepsis - Sepsis Criteria Sepsis Criteria: WBC count greater than 12,000 or less than 4000
[2018-08-24] MEDS: CIPROFLOXACIN 250 MG TABLET PO SCH (20:34)
[2018-08-24] MEDS: PARoxetine 10 MG TABLET PO SCH (20:34)
[2018-08-24] MEDS: ATORVASTATIN 10 MG TABLET PO SCH (20:34)
[2018-08-24] MEDS ORDERED: A & D OINTMENT 5 GM PACKET TOP PRN (21:53)
[2018-08-25] MEDS ORDERED: INSULIN REGULAR HUMAN 100 UNIT/1 ML 10 ML MDV SUBQ ONE ×2 (00:56→06:22)
[2018-08-25] MEDS: SODIUM CHLORIDE 0.9% 1,000 ML IV SCH ×2 (03:46→16:49)
[2018-08-25 05:23] LABS: BASOPHILS # (AUTO) 0.1 10^3/uL (0.0-0.1); BASOPHILS % (AUTO) 0.5 %; EOSINOPHILS % (AUTO) 0.3 %; HGB - HEMOGLOBIN 9.7 g/dL (12.0-16.0); LYMPHOCYTES # (AUTO) 1.4 10^3/uL (1.5-3.5); LYMPHOCYTES % (AUTO) 8.8 %; MEAN CORPUSCULAR HEMOGLOBIN 30.1 pg (27.0-31.0); MEAN CORPUSCULAR HGB CONC 32.5 g/dL (32.0-36.0); MEAN CORPUSCULAR VOLUME 92.4 fL (81.0-99.0); MEAN PLATELET VOLUME 6.6 fL (7.9-10.8); MONOCYTES # (AUTO) 1.9 10^3/uL (0.0-1.0); MONOCYTES % (AUTO) 12.5 %; NEUTROPHILS # (AUTO) 12.1 10^3/uL (1.5-6.6); NEUTROPHILS % (AUTO) 77.9 %; PLT - PLATELET COUNT 516 10^3/uL (130-450); RED BLOOD COUNT 3.22 10^6/uL (4.20-5.40); RED CELL DISTRIBUTION WIDTH 12.8 % (12.0-15.0); WHITE BLOOD COUNT 15.5 x10^3/uL (4.8-10.8)
[2018-08-25 05:36] LABS: CREATININE 1.2 mg/dL (0.4-1.0); MAGNESIUM 1.9 mg/dL (1.7-2.8); PHOSPHORUS 1.7 mg/dL (2.5-4.6)
[2018-08-25 05:40] LABS: CALCIUM 8.8 mg/dL (8.5-10.3)
[2018-08-25] MEDS: LEVOTHYROXINE 75 MCG TABLET PO SCH (05:40)
[2018-08-25] MEDS: LEVOTHYROXINE 112 MCG TABLET PO SCH (05:40)
[2018-08-25] MEDS ORDERED: POTASSIUM CHLOR 10 MEQ/100 ML 10 MEQ/100 ML BAG IV SCH (07:00)
[2018-08-25] MEDS: NYSTATIN POWDER 15 GM TOP SCH ×2 (08:08→21:28)
[2018-08-25] MEDS: POLYETHYLENE GLYCOL 3350 17 GM PACKET PO SCH (08:08)
[2018-08-25] MEDS: CIPROFLOXACIN 250 MG TABLET PO SCH ×2 (08:08→21:27)
[2018-08-25] MEDS: FAMOTIDINE 20 MG TABLET PO SCH (08:08)
[2018-08-25] MEDS: CARVEDILOL 3.125 MG TABLET PO SCH (08:08)
[2018-08-25] MEDS: INSULIN GLARGINE 300 UNIT/3 ML PEN SUBQ SCH ×2 (08:08→21:28)
[2018-08-25] MEDS: INSULIN ASPART 300 UNIT/3 ML PEN SUBQ SCH ×4 (08:09→21:29)
[2018-08-25] MEDS: HEPARIN 5,000 UNIT/ML VIAL SUBQ SCH ×2 (08:10→21:30)
[2018-08-25] MEDS: SODIUM CHLORIDE FLUSH 0.9% 10 ML SYRINGE IVP SCH ×2 (09:15→17:35)
--- NOTE | 2018-08-25 12:00 | PROVIDER PROGRESS NOTE ---
Assessment/Plan - Problem List (1) LILY (acute kidney injury) Assessment/Plan: Improving with gentle hydration. (2) Hyperkalemia Assessment/Plan: Still gets high serum K. Will begin Kayexelate. (3) COPD exacerbation Assessment/Plan: She is dependent on supplemental O2. Continue nebs and steroids. OOB in chair would be better for her lungs and ventilation, but she "wants to sleep". Will order stricter OOB to chair. (4) E. coli UTI Assessment/Plan: Continue po Cipro antibiotics. 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 he serum glu are again higher and difficult to control, despite escalating doses of Insulin sq. I will attempt to reach an [employer] (NAFISA at ), for guidance. (6) Morbid obesity Assessment/Plan: Stable overweight status. I suspect this is causing some SOB and maybe OWEN. It is a chore for her to ambulate, and now she reported the symptom that could be orthostasis. Will order postural VS checks. (7) Anemia Assessment/Plan: Check B12, folate and Iron panel. Replace if low. (8) Hypothyroidism Qualifiers: Hypothyroidism type: acquired Qualified Code(s): E03.9 - Hypothyroidism, un specified Assessment/Plan: On replacement meds. Will check TSH to confirm if dose is adequate. (9) Coronary artery disease Assessment/Plan: Stable with normal troponins and BNP on this admission. (10) Depression with anxiety Assessment/Plan: On her home meds. - Current Meds Current Meds: Current Medications Generic Name Dose Route Start Last Admin Trade Name Freq PRN Reason Stop Dose Admin Atorvastatin Calcium 10 mg 08/23/18 21:00 08/24/18 20:34 Lipitor PO 10 mg QPM SHANNAN Administration Carvedilol 3.125 mg 08/23/18 09:00 08/25/18 08:08 Coreg PO 3.125 mg DAILY SHANNAN Administration Ciprofloxacin 250 mg 08/24/18 21:00 08/25/18 08:08 Cipro PO 08/29/18 12:00 250 mg BID SHANNAN Administration Famotidine 20 mg 08/23/18 17:00 08/25/18 08:08 Pepcid PO 20 mg DAILY SHANNAN Administration Heparin Sodium (Porcine) 5,000 unit 08/23/18 09:00 08/25/18 08:10 SUBQ 5,000 unit BID SHANNAN Administration Sodium Chloride 1,000 mls @ 75 mls/hr 08/24/18 06:03 08/25/18 03:46 Normal Saline 0.9% IV 75 mls/hr .[id number] SHANNAN Administration Insulin Aspart 3 - 11 unit 08/24/18 08:00 08/25/18 08:09 Novolog SUBQ 9 unit 0800,1200,1700,2100 SHANNAN Administration Protocol Insulin Glargine 32 unit 08/23/18 23:45 08/25/18 08:08 Lantus Solostar SUBQ 32 unit BID SHANNAN Administration Levothyroxine Sodium 75 mcg 08/23/18 10:00 08/25/18 05:40 Synthroid PO 75 mcg QDAC SHANNAN Administration Levothyroxine Sodium 112 mcg 08/23/18 10:00 08/25/18 05:40 Synthroid PO 112 mcg QDAC SHANNAN Administration Nystatin 1 applic 08/23/18 12:00 08/25/18 08:08 Nystop TOP 1 applic BID SHANNAN Administration Paroxetine HCl 40 mg 08/23/18 21:00 08/24/18 20:34 Paxil PO 40 mg QPM SHANNAN Administration Polyethylene Glycol 17 gm 08/23/18 09:00 08/25/18 08:08 Miralax PO 17 gm DAILY SHANNAN Administration Sodium Chloride 10 ml 08/23/18 09:00 08/25/18 09:15 Normal Saline Flush 0.9% IVP Not Given 0100,0900,1700 SHANNAN - Lab Result Fish Bone Diagrams: 08/25/18 04:40 08/25/18 04:40 - Additional Planning My Orders: My Active Orders 08/24/18 17:55 Telemetry- [RC] Q4HR 08/24/18 21:00 Ciprofloxacin [Cipro] 250 mg PO BID 08/24/18 21:53 A & D Ointment [Vitamin A & D Ointment] 1 applic TOP PRN PRN 08/25/18 12:00 Calcium Carbonate [Tums] 500 mg PO BID 08/26/18 05:00 MAGNESIUM [CHEM] DAILYLAB PHOSPHORUS [CHEM] DAILYLAB Subjective - Subjective Patient Reports: Feeling Better, Shortness of Breath, Other (She describes that when she walks at home, her legs suddenly shake and "feel like wet noodles".) Objective Vital Signs: Vital Signs - 24 hr 08/24/18 08/24/18 08/24/18 12:42 16:10 20:02 Temperature 36.6 C 36.6 C Heart Rate Heart Rate [ 73 95 Monitoring electrodes] Heart Rate [ 74 Supine] Respiratory 23 20 Rate Respiratory 15 Rate [Without Activity] Blood Pressure 155/70 H [Right Brachial artery] Blood Pressure 161/67 H [Right Radial artery] Blood Pressure 156/78 H [Supine] O2 Saturation 96 94 O2 Saturation [ 95 Without Activity] 08/24/18 08/25/18 08/25/18 21:00 00:53 05:00 Temperature 36.8 C 37.0 C Heart Rate 95 Heart Rate [ 84 90 Monitoring electrodes] Heart Rate [ Supine] Respiratory 20 18 20 Rate Respiratory Rate [Without Activity] Blood Pressure [Right Brachial artery] Blood Pressure 151/76 H 149/74 H [Right Radial artery] Blood Pressure [Supine] O2 Saturation 92 93 O2 Saturation [ Without Activity] 08/25/18 07:58 Temperature 36.7 C Heart Rate Heart Rate [ 85 Monitoring electrodes] Heart Rate [ Supine] Respiratory 18 Rate Respiratory Rate [Without Activity] Blood Pressure [Right Brachial artery] Blood Pressure 166/84 H [Right Radial artery] Blood Pressure [Supine] O2 Saturation 93 O2 Saturation [ Without Activity] Oxygen O2 Source [Without Activity] Nasal cannula O2 Source Nasal cannula Oxygen Flow Rate 4 I&O (Last 24 Hrs): Intake and Output Totals x24h 08/23/18 08/24/18 08/25/18 23:59 23:59 23:59 Intake Total 5202.433 1432.5 1000 Output Total 960 1852 575 Balance 4242.433 -419.5 425 General: Alert, Oriented x3 HEENT: Mucous membr. moist/pink Neck: Other (Obese) Neuro: Non Focal Cardiovascular: Other (Distant heart sounds) Respiratory: Other (Distant breath sounds, no wheezing) Abdomen: Other (Obese with pannus) Extremities: No edema (1+ pedal edema) - Results Results: Laboratory Results WBC 15.5 x10^3/uL (4.8-10.8) H 08/25/18 04:40 RBC 3.22 10^6/uL (4.20-5.40) L 08/25/18 04:40 Hgb 9.7 g/dL (12.0-16.0) L 08/25/18 04:40 Hct 29.7 % (37.0-47.0) L 08/25/18 04:40 MCV 92.4 fL (81.0-99.0) 08/25/18 04:40 MCH 30.1 pg (27.0-31.0) 08/25/18 04:40 MCHC 32.5 g/dL (32.0-36.0) 08/25/18 04:40 RDW 12.8 % (12.0-15.0) 08/25/18 04:40 Plt Count 516 10^3/uL (130-450) H 08/25/18 04:40 MPV 6.6 fL (7.9-10.8) L 08/25/18 04:40 Neut # (Auto) 12.1 10^3/uL (1.5-6.6) H 08/25/18 04:40 Lymph # (Auto) 1.4 10^3/uL (1.5-3.5) L 08/25/18 04:40 [place] # (Auto) 1.9 10^3/uL (0.0-1.0) H 08/25/18 04:40 Eos # (Auto) 0.0 10^3/uL (0.0-0.7) 08/25/18 04:40 Baso # (Auto) 0.1 10^3/uL (0.0-0.1) 08/25/18 04:40 Absolute Nucleated RBC 0.00 x10^3/uL 08/25/18 04:40 Nucleated RBC % 0.0 /100WBC 08/25/18 04:40 VBG pH 7.345 (7.31-7.41) 08/24/18 03:13 VBG pCO2 60.4 mmHg (41-51) H 08/23/18 16:00 VBG pO2 52.2 mmHg (25-47) H 08/23/18 16:00 VBG HCO3 27.4 mmol/L (23-28) 08/23/18 16:00 VBG Total CO2 29.3 mmol/L (24-29) H 08/23/18 16:00 VBG O2 Saturation 86.2 % (60-80) H 08/23/18 16:00 VBG Base Excess -0.3 mmol/L (-2 - +2) 08/23/18 16:00 Ionized Calcium 1.15 mmol/L (1.15-1.33) 08/24/18 03:13 Sodium 131 mmol/L (135-145) L 08/25/18 04:40 Potassium 5.2 mmol/L (3.5-5.0) H 08/25/18 04:40 Chloride 100 mmol/L (101-111) L 08/25/18 04:40 Carbon Dioxide 23 mmol/L (21-32) 08/25/18 04:40 Anion Gap 8.0 (6-13) 08/25/18 04:40 BUN 31 mg/dL (6-20) H 08/25/18 04:40 Creatinine 1.2 mg/dL (0.4-1.0) H 08/25/18 04:40 Estimated GFR (MDRD) 43 (>89) L 08/25/18 04:40 Glucose 337 mg/dL (70-100) H 08/25/18 04:40 POC Whole Bld Glucose 246 mg/dL (70 - 100) H 08/25/18 11:30 Glycated Hemoglobin 10.7 % (4.6-6.2) H 08/24/18 07:20 Estim Average Glucose 260 (70-100) H 08/24/18 07:20 Lactic Acid 1.3 mmol/L (0.5-2.2) 08/23/18 09:25 Calcium 8.8 mg/dL (8.5-10.3) 08/25/18 04:40 Phosphorus 1.7 mg/dL (2.5-4.6) L 08/25/18 04:40 Magnesium 1.9 mg/dL (1.7-2.8) 08/25/18 04:40 Total Bilirubin 0.7 mg/dL (0.2-1.0) 08/22/18 23:49 AST 56 IU/L (10-42) H 08/22/18 23:49 ALT 69 IU/L (10-60) H 08/22/18 23:49 Alkaline Phosphatase 371 IU/L (42-121) H 08/22/18 23:49 Troponin I 0.10 ng/mL (<0.49) 08/22/18 23:49 B-Natriuretic Peptide 66 pg/mL (5-100) 08/22/18 23:49 Total Protein 7.7 g/dL (6.7-8.2) 08/22/18 23:49 Albumin 3.1 g/dL (3.2-5.5) L 08/22/18 23:49 Globulin 4.6 g/dL (2.1-4.2) H 08/22/18 23:49 Albumin/Globulin Ratio 0.7 (1.0-2.2) L 08/22/18 23:49 Lipase 154 U/L (22-51) H 08/22/18 23:49 Urine Color YELLOW 08/23/18 09:00 Urine Clarity HAZY (CLEAR) 08/23/18 09:00 Urine pH 5.5 PH (5.0-7.5) 08/23/18 09:00 Ur Specific [place] 1.025 (1.002-1.030) 08/23/18 09:00 Urine Protein NEGATIVE mg/dL (NEGATIVE) 08/23/18 09:00 Urine Glucose (UA) NEGATIVE mg/dL (NEGATIVE) 08/23/18 09:00 Urine Ketones NEGATIVE mg/dL (NEGATIVE) 08/23/18 09:00 Urine Occult Blood TRACE-INTA (NEGATIVE) 08/23/18 09:00 Urine Nitrite NEGATIVE (NEGATIVE) 08/23/18 09:00 Urine Bilirubin NEGATIVE (NEGATIVE) 08/23/18 09:00 Urine Urobilinogen 0.2 (NORMAL) E.U./dL (NORMAL) 08/23/18 09:00 Ur Leukocyte Esterase MODERATE (NEGATIVE) H 08/23/18 09:00 Urine RBC 0-5 /HPF (0-5) 08/23/18 09:00 Urine WBC >25 /HPF (0-5) H 08/23/18 09:00 Ur Squamous Epith Cells FEW Squamous (<= Few) 08/23/18 09:00 Urine Bacteria Few /HPF (None Seen) 08/23/18 09:00 Urine Casts 11-25 Hyaline Casts /LPF 08/23/18 09:00 Ur Microscopic Review INDICATED 08/23/18 09:00 Urine Culture Comments INDICATED 08/23/18 09:00 Nasal Screen MRSA (PCR) NEGATIVE (NEGATIVE) 08/23/18 10:18 Influenza A (Rapid) Negative (Negative) 08/23/18 02:53 Influenza B (Rapid) Negative (Negative) 08/23/18 02:53 Sepsis Event Note (H) - Evaluation Current Stage of Sepsis: Sepsis - Sepsis Criteria Sepsis Criteria: WBC count greater than 12,000 or less than 4000
[2018-08-25] MEDS: CALCIUM CARBONATE CHEW 500 MG TABLET PO SCH ×2 (13:22→22:24)
[2018-08-25] MEDS: PARoxetine 10 MG TABLET PO SCH (21:27)
[2018-08-25] MEDS: ATORVASTATIN 10 MG TABLET PO SCH (21:27)
[2018-08-25] MEDS ORDERED: SODIUM CHLORIDE 0.9% 1,000 ML IV SCH (22:19)
--- NOTE | 2018-08-26 00:56 | XRAY Report ---
Reason: increase work of breathing Procedure Date: 08/26/2018 Accession Number: [id number] / [id number] Procedure: XR - Chest 1 View X-Ray CPT Code: 65427 FULL RESULT: EXAM: CHEST RADIOGRAPHY EXAM DATE: 08/26/2018 12:31 AM. CLINICAL HISTORY: Increased work of breathing. COMPARISON: CHEST 1 VIEW 08/22/2018 11:34 PM. TECHNIQUE: 1 view. FINDINGS IMPRESSION: 1. This is a rightward rotated exposure, which accounts for the prominence of the right-sided mediastinal contour. 2. There is mild enlargement of the cardiomediastinal silhouette. 3. There is diffuse pulmonary venous congestion as well as interstitial edema. Combined findings suggest moderate CHF. 4. No significant pulmonary consolidation. 5. No definite pneumothorax. 6. Moderate bilateral shoulder degenerative change. RADIA
[2018-08-26] MEDS: SODIUM CHLORIDE FLUSH 0.9% 10 ML SYRINGE IVP SCH ×3 (02:02→20:45)
[2018-08-26] MEDS: LEVOTHYROXINE 112 MCG TABLET PO SCH (06:00)
[2018-08-26] MEDS: LEVOTHYROXINE 75 MCG TABLET PO SCH (06:00)
[2018-08-26 07:03] LABS: MAGNESIUM 1.8 mg/dL (1.7-2.8); PHOSPHORUS 2.7 mg/dL (2.5-4.6)
[2018-08-26] MEDS: INSULIN ASPART 300 UNIT/3 ML PEN SUBQ SCH ×4 (08:19→20:49)
[2018-08-26] MEDS: INSULIN GLARGINE 300 UNIT/3 ML PEN SUBQ SCH ×2 (08:20→20:49)
[2018-08-26] MEDS: HEPARIN 5,000 UNIT/ML VIAL SUBQ SCH ×2 (08:21→20:48)
[2018-08-26] MEDS: NYSTATIN POWDER 15 GM TOP SCH ×2 (08:22→20:46)
[2018-08-26] MEDS: CARVEDILOL 3.125 MG TABLET PO SCH (08:23)
[2018-08-26] MEDS: CALCIUM CARBONATE CHEW 500 MG TABLET PO SCH ×2 (08:23→20:45)
[2018-08-26] MEDS: FAMOTIDINE 20 MG TABLET PO SCH (08:23)
[2018-08-26] MEDS: CIPROFLOXACIN 250 MG TABLET PO SCH ×2 (08:23→20:45)
[2018-08-26] MEDS: POLYETHYLENE GLYCOL 3350 17 GM PACKET PO SCH (08:24)
[2018-08-26 08:57] LABS: BASOPHILS # (AUTO) 0.1 10^3/uL (0.0-0.1); BASOPHILS % (AUTO) 0.4 %; EOSINOPHILS # (AUTO) 0.1 10^3/uL (0.0-0.7); EOSINOPHILS % (AUTO) 0.4 %; HGB - HEMOGLOBIN 9.4 g/dL (12.0-16.0); LYMPHOCYTES # (AUTO) 2.2 10^3/uL (1.5-3.5); LYMPHOCYTES % (AUTO) 11.8 %; MEAN CORPUSCULAR HEMOGLOBIN 29.9 pg (27.0-31.0); MEAN CORPUSCULAR HGB CONC 32.5 g/dL (32.0-36.0); MEAN CORPUSCULAR VOLUME 92.1 fL (81.0-99.0); MONOCYTES # (AUTO) 1.3 10^3/uL (0.0-1.0); MONOCYTES % (AUTO) 6.8 %; NEUTROPHILS % (AUTO) 80.6 %; PLT - PLATELET COUNT 480 10^3/uL (130-450); RED BLOOD COUNT 3.13 10^6/uL (4.20-5.40); RED CELL DISTRIBUTION WIDTH 12.7 % (12.0-15.0); WHITE BLOOD COUNT 18.6 x10^3/uL (4.8-10.8)
[2018-08-26 09:03] LABS: CALCIUM 8.7 mg/dL (8.5-10.3); CREATININE 1.6 mg/dL (0.4-1.0)
--- NOTE | 2018-08-26 10:19 | PROVIDER PROGRESS NOTE ---
Assessment/Plan - Problem List (1) At risk for aspiration Assessment/Plan: Her description is consistent with esophageal stricture. Will request a surgical consult for EGD and stretch a stricture if one is found. She also describes being told by her oxygen company, that her monitoring device shows she gets apnea. I have witnessed her snoring and apnea: she fell asleep while talking to me the past 2 days, and later told her nurse she doesn't remember being seen by a Provider. I told her that a sleep study and sleep apnea management needs to be done as an outpatient. (2) CHF exacerbation Assessment/Plan: She has a Hx of Cardiomyopathy: EF was 35% several years ago, Echo done 12/26 showed LVEF had improved to 50% but she had Grade II diatolic dysfunction. She has a narrow range of optimal fluid status: fluid given this admission for LILY has improved her renal function but has now caused pulmonary edema. Will give iv Lasix. She also needs to be up in a chair tid and not supine in bed all day. Follow BMP daily. (3) Pyuria Assessment/Plan: After the above iv Lasix was given, good urine output resulted. Pt still has a Delaney, put in during her ICU stay, ordered to be discontinued today. The RN noticed that her urine turned from koki to white (I confirmed that). Will obtain a STAT U/A and culture. She was already on treatment for E coli that grew on her admission urine cu lture, today is Day#2 of po Cipro. (4) E. coli UTI Assessment/Plan: Pt started yesterday on po Cipro for a planned 3 day course. That may need longer treatment given the above pyuria. (5) LILY (acute kidney injury) Assessment/Plan: Creat has improved with the hydration she was getting for several days. iv fluids stopped this am and she will need Lasix today. Follow BMP daily. Avoid nephrotoxins. (6) Hyperkalemia Assessment/Plan: This also improved with renal function improvement. Follow K daily. (7) COPD exacerbation Assessment/Plan: Continue present steroid, nebs and Mucinex. Upright OOB in chair ordered to be done tid. 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 (9) Anemia Qualifiers: Anemia type: iron deficiency Assessment/Plan: Low Iron stores, adequate B12 and Folate. Pt will be started on oral iron replacement . Follow CBC intermittently. (10) Hypothyroidism Qualifiers: Hypothyroidism type: acquired Qualified Code(s): E03.9 - Hypothyroidism, unspecified Assessment/Plan: Pt on her home dose of replacement. Will check TSH regarding adequate dose. (11) Coronary artery disease Assessment/Plan: Continue her home meds. (12) Depression with anxiety Assessment/Plan: Pt on her home meds and stable. (13) Morbid obesity Assessment/Plan: She needs dietary guidance, was seen by our Sales Project Engineer and the impression is that the patient won't follow calorie restrictions. - Current Meds Current Meds: Current Medications Generic Name Dose Route Start Last Admin Trade Name Freq PRN Reason Stop Dose Admin Acetaminophen 650 mg 08/23/18 03:07 08/25/18 18:52 Tylenol PO 650 mg Q4HR PRN Administration Pain 1 to 4 Albuterol 2.5 mg 08/23/18 07:29 08/25/18 12:20 INH 2.5 mg RTQ4H PRN Administration Wheezing Atorvastatin Calcium 10 mg 08/23/18 21:00 08/25/18 21:27 Lipitor PO 10 mg QPM SHANNAN Administration Calcium Carbonate/Glycine 500 mg 08/25/18 12:00 08/26/18 08:23 Tums PO 500 mg BID SHANNAN Administration Carvedilol 3.125 mg 08/23/18 09:00 08/26/18 08:23 Coreg PO 3.125 mg DAILY SHANNAN Administration Ciprofloxacin 250 mg 08/24/18 21:00 08/26/18 08:23 Cipro PO 08/29/18 12:00 250 mg BID SHANNAN Administration Famotidine 20 mg 08/23/18 17:00 08/26/18 08:23 Pepcid PO 20 mg DAILY SHANNAN Administration Heparin Sodium (Porcine) 5,000 unit 08/23/18 09:00 08/26/18 08:21 SUBQ 5,000 unit BID SHANNAN Administration Insulin Aspart 3 - 11 unit 08/24/18 08:00 08/26/18 08:19 Novolog SUBQ 5 unit 0800,1200,1700,2100 SHANNAN Administration Protocol Insulin Glargine 32 unit 08/23/18 23:45 08/26/18 08:20 Lantus Solostar SUBQ 32 unit BID SHANNAN Administration Levothyroxine Sodium 75 mcg 08/23/18 10:00 08/26/18 06:00 Synthroid PO 75 mcg QDAC SHANNAN Administration Levothyroxine Sodium 112 mcg 08/23/18 10:00 08/26/18 06:00 Synthroid PO 112 mcg QDAC SHANNAN Administration Nystatin 1 applic 08/23/18 12:00 08/26/18 08:22 Nystop TOP 1 applic BID SHANNAN Administration Paroxetine HCl 40 mg 08/23/18 21:00 08/25/18 21:27 Paxil PO 40 mg QPM SHANNAN Administration Polyethylene Glycol 17 gm 08/23/18 09:00 08/26/18 08:24 Miralax PO 17 gm DAILY SHANNAN Administration Sodium Chloride 10 ml 08/23/18 09:00 08/26/18 08:23 Normal Saline Flush 0.9% IVP 10 ml 0100,0900,1700 SHANNAN Administration - Lab Result Fish Bone Diagrams: 08/26/18 06:28 08/26/18 06:28 - Additional Planning My Orders: My Active Orders 08/25/18 12:00 Calcium Carbonate [Tums] 500 mg PO BID 08/26/18 10:16 FUROSEMIDE INJ 20mg VIAL [LASIX INJ 20mg VIAL] 20 mg IVP 0800 08/27/18 05:00 BMP - BASIC METABOLIC PANEL [CHEM] DAILYLAB CBC - COMP BLD CT W/AUTO DIFF [HEME] DAILYLAB Subjective - Subjective Patient Reports: Feeling Better, Shortness of Breath, Other ("More SOB than yesterday" but able to stay awake longer and carry on a discussion. Describes "food getting caught as she is swallowing, then coughs it up and feels acid".) Nursing Reports: Other (CXR ordered by Lead Programmer Analyst showed worsened CHF, fluids were stopped then, but no Lasix given.) Objective Vital Signs: Vital Signs - 24 hr 08/25/18 08/25/18 08/25/18 11:30 12:00 12:15 Temperature 36.4 C L Heart Rate 81 Heart Rate [ 109 H Monitoring electrodes] Respiratory 20 22 22 Rate Blood Pressure [Right Brachial artery] Blood Pressure 139/123 H [Right Radial artery] O2 Saturation 81 L 95 08/25/18 08/25/18 08/25/18 12:20 16:27 18:45 Temperature 37.4 C 37.8 C H Heart Rate 110 H Heart Rate [ 87 Monitoring electrodes] Respiratory 30 H 20 Rate Blood Pressure [Right Brachial artery] Blood Pressure 133/63 H [Right Radial artery] O2 Saturation 96 08/25/18 08/25/18 08/26/18 20:45 22:05 00:20 Temperature 36.7 C 36.4 C L Heart Rate 70 Heart Rate [ 78 70 Monitoring electrodes] Respiratory 16 20 20 Rate Blood Pressure 128/62 [Right Brachial artery] Blood Pressure 119/74 [Right Radial artery] O2 Saturation 96 98 08/26/18 08/26/18 04:15 07:35 Temperature 36.7 C 36.5 C Heart Rate Heart Rate [ 70 77 Monitoring electrodes] Respiratory 18 16 Rate Blood Pressure 130/65 141/53 H [Right Brachial artery] Blood Pressure [Right Radial artery] O2 Saturation 95 97 Oxygen O2 Source [Without Activity] Nasal cannula O2 Source Nasal cannula Oxygen Flow Rate 4 I&O (Last 24 Hrs): Intake and Output Totals x24h 08/24/18 08/25/18 08/26/18 23:59 23:59 23:59 Intake Total 1432.5 2418.75 1290 Output Total 1852 1075 150 Balance -419.5 1343.75 1140 General: Alert, Oriented x3 HEENT: Mucous membr. moist/pink Neck: Other (Obese) Neuro: Non Focal Cardiovascular: Other (Distant heart sounds) Respiratory: Other (Poor air movement, posible rales) Abdomen: Other (Obese with pannus) Extremities: No edema - Results Results: Laboratory Results WBC 18.6 x10^3/uL (4.8-10.8) H 08/26/18 06:28 RBC 3.13 10^6/uL (4.20-5.40) L 08/26/18 06:28 Hgb 9.4 g/dL (12.0-16.0) L 08/26/18 06:28 Hct 28.8 % (37.0-47.0) L 08/26/18 06:28 MCV 92.1 fL (81.0-99.0) 08/26/18 06:28 MCH 29.9 pg (27.0-31.0) 08/26/18 06:28 MCHC 32.5 g/dL (32.0-36.0) 08/26/18 06:28 RDW 12.7 % (12.0-15.0) 08/26/18 06:28 Plt Count 480 10^3/uL (130-450) H 08/26/18 06:28 MPV 7.0 fL (7.9-10.8) L 08/26/18 06:28 Neut # (Auto) 15.0 10^3/uL (1.5-6.6) H 08/26/18 06:28 Lymph # (Auto) 2.2 10^3/uL (1.5-3.5) 08/26/18 06:28 [place] # (Auto) 1.3 10^3/uL (0.0-1.0) H 08/26/18 06:28 Eos # (Auto) 0.1 10^3/uL (0.0-0.7) 08/26/18 06:28 Baso # (Auto) 0.1 10^3/uL (0.0-0.1) 08/26/18 06:28 Absolute Nucleated RBC 0.01 x10^3/uL 08/26/18 06:28 Nucleated RBC % 0.0 /100WBC 08/26/18 06:28 VBG pH 7.345 (7.31-7.41) 08/24/18 03:13 VBG pCO2 60.4 mmHg (41-51) H 08/23/18 16:00 VBG pO2 52.2 mmHg (25-47) H 08/23/18 16:00 VBG HCO3 27.4 mmol/L (23-28) 08/23/18 16:00 VBG Total CO2 29.3 mmol/L (24-29) H 08/23/18 16:00 VBG O2 Saturation 86.2 % (60-80) H 08/23/18 16:00 VBG Base Excess -0.3 mmol/L (-2 - +2) 08/23/18 16:00 Ionized Calcium 1.15 mmol/L (1.15-1.33) 08/24/18 03:13 Sodium 131 mmol/L (135-145) L 08/26/18 06:28 Potassium 5.0 mmol/L (3.5-5.0) 08/26/18 06:28 Chloride 100 mmol/L (101-111) L 08/26/18 06:28 Carbon Dioxide 22 mmol/L (21-32) 08/26/18 06:28 Anion Gap 9.0 (6-13) 08/26/18 06:28 BUN 38 mg/dL (6-20) H 08/26/18 06:28 Creatinine 1.6 mg/dL (0.4-1.0) H 08/26/18 06:28 Estimated GFR (MDRD) 31 (>89) L 08/26/18 06:28 Glucose 186 mg/dL (70-100) H 08/26/18 06:28 POC Whole Bld Glucose 198 mg/dL (70 - 100) H 08/26/18 07:37 Glycated Hemoglobin 10.7 % (4.6-6.2) H 08/24/18 07:20 Estim Average Glucose 260 (70-100) H 08/24/18 07:20 Lactic Acid 1.3 mmol/L (0.5-2.2) 08/23/18 09:25 Calcium 8.7 mg/dL (8.5-10.3) 08/26/18 06:28 Phosphorus 2.7 mg/dL (2.5-4.6) 08/26/18 06:28 Magnesium 1.8 mg/dL (1.7-2.8) 08/26/18 06:28 Iron 22 ug/dL (28-170) L 08/26/18 06:28 TIBC 245 ug/dL (250-450) L 08/26/18 06:28 % Saturation 9 % (20-50) L 08/26/18 06:28 Transferrin 175 mg/dL (192-382) L 08/26/18 06:28 Total Bilirubin 0.7 mg/dL (0.2-1.0) 08/22/18 23:49 AST 56 IU/L (10-42) H 08/22/18 23:49 ALT 69 IU/L (10-60) H 08/22/18 23:49 Alkaline Phosphatase 371 IU/L (42-121) H 08/22/18 23:49 Troponin I 0.10 ng/mL (<0.49) 08/22/18 23:49 B-Natriuretic Peptide 66 pg/mL (5-100) 08/22/18 23:49 Total Protein 7.7 g/dL (6.7-8.2) 08/22/18 23:49 Albumin 3.1 g/dL (3.2-5.5) L 08/22/18 23:49 Globulin 4.6 g/dL (2.1-4.2) H 08/22/18 23:49 Albumin/Globulin Ratio 0.7 (1.0-2.2) L 08/22/18 23:49 Lipase 154 U/L (22-51) H 08/22/18 23:49 Vitamin B12 3256 pg/mL (180-914) H 08/26/18 06:28 Folate 39.00 ng/mL (5.90 - >24.8) 08/26/18 06:28 Urine Color YELLOW 08/23/18 09:00 Urine Clarity HAZY (CLEAR) 08/23/18 09:00 Urine pH 5.5 PH (5.0-7.5) 08/23/18 09:00 Ur Specific [place] 1.025 (1.002-1.030) 08/23/18 09:00 Urine Protein NEGATIVE mg/dL (NEGATIVE) 08/23/18 09:00 Urine Glucose (UA) NEGATIVE mg/dL (NEGATIVE) 08/23/18 09:00 Urine Ketones NEGATIVE mg/dL (NEGATIVE) 08/23/18 09:00 Urine Occult Blood TRACE-INTA (NEGATIVE) 08/23/18 09:00 Urine Nitrite NEGATIVE (NEGATIVE) 08/23/18 09:00 Urine Bilirubin NEGATIVE (NEGATIVE) 08/23/18 09:00 Urine Urobilinogen 0.2 (NORMAL) E.U./dL (NORMAL) 08/23/18 09:00 Ur Leukocyte Esterase MODERATE (NEGATIVE) H 08/23/18 09:00 Urine RBC 0-5 /HPF (0-5) 08/23/18 09:00 Urine WBC >25 /HPF (0-5) H 08/23/18 09:00 Ur Squamous Epith Cells FEW Squamous (<= Few) 08/23/18 09:00 Urine Bacteria Few /HPF (None Seen) 08/23/18 09:00 Urine Casts 11-25 Hyaline Casts /LPF 08/23/18 09:00 Ur Microscopic Review INDICATED 08/23/18 09:00 Urine Culture Comments INDICATED 08/23/18 09:00 Nasal Screen MRSA (PCR) NEGATIVE (NEGATIVE) 08/23/18 10:18 Influenza A (Rapid) Negative (Negative) 08/26/18 00:38 Influenza B (Rapid) Negative (Negative) 08/26/18 00:38 Sepsis Event Note (H) - Evaluation Current Stage of Sepsis: Sepsis - Sepsis Criteria Sepsis Criteria: WBC count greater than 12,000 or less than 4000
[2018-08-26] MEDS: FUROSEMIDE 20 MG/2 ML VIAL IVP SCH (11:06)
[2018-08-26 12:42] LABS: BILIRUBIN,URINE NEGATIVE (NEGATIVE); GLUCOSE, URINE (UA) NEGATIVE (NEGATIVE); KETONES,URINE (UA) NEGATIVE (NEGATIVE); LEUKOCYTE ESTERASE, URINE LARGE (NEGATIVE); NITRITE,URINE NEGATIVE (NEGATIVE); OCCULT BLOOD,URINE LARGE (NEGATIVE); PROTEIN,URINE 100 mg/dL (NEGATIVE); UROBILINOGEN,URINE 0.2 (NORMAL) E.U./dL (NORMAL)
[2018-08-26 12:56] LABS: BACTERIA,URINE None Seen /HPF (None Seen); CLARITY,URINE TURBID (CLEAR); RBC,URINE None Seen /HPF (0-5); SQUAMOUS EPITHELIAL CELL,UR NONE SEEN (<= Few)
[2018-08-26] MEDS: PARoxetine 10 MG TABLET PO SCH (20:45)
[2018-08-26] MEDS: ATORVASTATIN 10 MG TABLET PO SCH (20:45)
[2018-08-27] MEDS: SODIUM CHLORIDE FLUSH 0.9% 10 ML SYRINGE IVP SCH ×3 (00:17→19:07)
[2018-08-27] MEDS ORDERED: PIPERACILLIN/TAZOBACTAM 3.375 GM in SODIUM CHLORIDE 0.9% MINIBAG 100 ML IV SCH (01:00)
[2018-08-27] MEDS: SODIUM CHLORIDE FLUSH 0.9% 10 ML SYRINGE IVP PRN ×2 (02:51→14:23)
[2018-08-27 06:06] LABS: BASOPHILS % (AUTO) 0.6 %; EOSINOPHILS % (AUTO) 1.8 %; HGB - HEMOGLOBIN 9.7 g/dL (12.0-16.0); LYMPHOCYTES % (AUTO) 13.1 %; MEAN CORPUSCULAR HEMOGLOBIN 29.7 pg (27.0-31.0); MEAN CORPUSCULAR HGB CONC 32.2 g/dL (32.0-36.0); MEAN CORPUSCULAR VOLUME 92.2 fL (81.0-99.0); MEAN PLATELET VOLUME 6.8 fL (7.9-10.8); MONOCYTES % (AUTO) 11.4 %; NEUTROPHILS % (AUTO) 73.1 %; PLT - PLATELET COUNT 448 10^3/uL (130-450); RED BLOOD COUNT 3.27 10^6/uL (4.20-5.40); RED CELL DISTRIBUTION WIDTH 13.3 % (12.0-15.0)
[2018-08-27 06:12] LABS: CALCIUM 8.7 mg/dL (8.5-10.3); CREATININE 1.4 mg/dL (0.4-1.0)
[2018-08-27 06:25] LABS: ABNORMAL LYMPHS % (MANUAL) 0 %
[2018-08-27] MEDS: LEVOTHYROXINE 75 MCG TABLET PO SCH (06:33)
[2018-08-27] MEDS: LEVOTHYROXINE 112 MCG TABLET PO SCH (06:33)
[2018-08-27] MEDS: FUROSEMIDE 20 MG/2 ML VIAL IVP SCH (08:08)
[2018-08-27 08:09] LABS: LYMPHOCYTES # (MANUAL) 1.8 10^3/uL (1.5-3.5); LYMPHOCYTES % (MANUAL) 10 %; MONOCYTES # (MANUAL) 1.4 10^3/uL (0.0-1.0); NEUTROPHILS % (MANUAL) 68 %
[2018-08-27 08:10] LABS: BAND NEUTROPHILS % (MANUAL) 11 %; EOSINOPHILS # (MANUAL) 0.2 10^3/uL (0-0.7); MYELOCYTES % (MANUAL) 2 %; NEUTROPHILS # (MANUAL) 14.2 10^3/uL (1.5-6.6); PLATELET MORPHOLOGY RARE GIANT PLATELETS (NORMAL)
[2018-08-27] MEDS: CALCIUM CARBONATE CHEW 500 MG TABLET PO SCH ×2 (08:10→21:04)
[2018-08-27] MEDS: CARVEDILOL 3.125 MG TABLET PO SCH (08:10)
[2018-08-27] MEDS: FAMOTIDINE 20 MG TABLET PO SCH (08:10)
[2018-08-27 08:11] LABS: DIFFERENTIAL COMMENT MANUAL DIFFERENTIAL; PLATELET ESTIMATE, MANUAL NORMAL (130-450,000) (NORMAL)
[2018-08-27] MEDS: INSULIN GLARGINE 300 UNIT/3 ML PEN SUBQ SCH ×2 (08:11→21:11)
[2018-08-27] MEDS: INSULIN ASPART 300 UNIT/3 ML PEN SUBQ SCH ×4 (08:12→21:12)
[2018-08-27] MEDS: HEPARIN 5,000 UNIT/ML VIAL SUBQ SCH ×2 (08:12→21:11)
[2018-08-27] MEDS: NYSTATIN POWDER 15 GM TOP SCH ×2 (08:13→21:04)
[2018-08-27] MEDS: POLYETHYLENE GLYCOL 3350 17 GM PACKET PO SCH (08:24)
[2018-08-27] MEDS: PIPERACILLIN/TAZOBACTAM 2.25 GM in SODIUM CHLORIDE 0.9% MINIBAG 100 ML IV SCH ×2 (08:24→14:22)
[2018-08-27] MEDS: SACCHAROMYCES BOULARDII 250 MG CAPSULE PO SCH ×2 (12:20→19:05)
--- NOTE | 2018-08-27 13:22 | PROVIDER PROGRESS NOTE ---
Subjective - Subjective Subjective: She describes months of difficulty swallowing food. She will feel food get stuck in her lower to mid esophagus. It then stays there and then she will suddenly up to check food. Late in the evening, after lying down, she will find that she will have spontaneous reflux and emesis. Sometimes aspiration. She can taste the acid and undigested food. She says it has been happening here. But her current dinner says that she was unaware of this until patient described this to her. Yesterday she had enough pyuria that her urine turned milky white. She was growing out E. coli from her first urine sample. She was on Cipro orally and sensitivities were appropriate. In spite of this, she had milky white urine yesterday, and repeat culture shows continued E. coli. She was switched to Zosyn IV by kisha Hardy. She will get up in bed to sit in bed to eat. But she has continued dyspnea on exertion and dyspnea with eating. Overall she feels better but she feels like she has a "fluid sensation in her mid chest" that makes her feel like she is drowning. Objective - Vital Signs/Intake & Output Vital Signs: Vital Signs x48h Temp Pulse Resp BP Pulse Ox 08/27/18 09:00 36.4 C L 78 20 151/86 H 94 Intake & Output: Intake & Output 08/24/18 08/25/18 08/26/18 08/27/18 23:59 23:59 23:59 23:59 Intake Total 1432.5 2418.75 2520 680 Output Total 1852 1075 1900 350 Balance -419.5 1343.75 620 330 - Lab Results Fish Bones: 08/27/18 05:14 08/27/18 05:14 Other Labs: Lab Results x24hrs 08/27/18 08/27/18 08/27/18 Range/Units 11:54 07:56 05:14 WBC (4.8-10.8) x10^3/uL RBC (4.20-5.40) 10^6/uL Hgb (12.0-16.0) g/dL Hct (37.0-47.0) % MCV (81.0-99.0) fL MCH (27.0-31.0) pg MCHC (32.0-36.0) g/dL RDW (12.0-15.0) % Plt Count (130-450) 10^3/uL MPV (7.9-10.8) fL Neut # (Auto) Lymph # (Auto) [place] # (Auto) Eos # (Auto) Baso # (Auto) Absolute Nucleated RBC Total Counted Band Neuts % (Manual) (0 - 10) % Abnorm Lymph % (Manual) % Myelocytes % ( - 0) % Nucleated RBC % Neutrophils # (Manual) (1.5-6.6) 10^3/uL Lymphocytes # (Manual) (1.5-3.5) 10^3/uL Monocytes # (Manual) (0.0-1.0) 10^3/uL Eosinophils # (Manual) (0-0.7) 10^3/uL Basophils # (Manual) (0-0.1) 10^3/uL Nucleated RBCs % Differential Comment Manual Slide Review Platelet Estimate (NORMAL) Platelet Morphology (NORMAL) RBC Morph Micro Appear (NORMAL) Sodium 130 L (135-145) mmol/L Potassium 4.7 (3.5-5.0) mmol/L Chloride 99 L (101-111) mmol/L Carbon Dioxide 24 (21-32) mmol/L Anion Gap 7.0 (6-13) BUN 39 H (6-20) mg/dL Creatinine 1.4 H (0.4-1.0) mg/dL Estimated GFR (MDRD) 36 L (>89) Glucose 214 H (70-100) mg/dL POC Whole Bld Glucose 315 H 184 H (70 - 100) mg/dL Calcium 8.7 (8.5-10.3) mg/dL 08/27/18 08/26/18 08/26/18 Range/Units 05:14 20:33 16:38 WBC 18.0 H (4.8-10.8) x10^3/uL RBC 3.27 L (4.20-5.40) 10^6/uL Hgb 9.7 L (12.0-16.0) g/dL Hct 30.2 L (37.0-47.0) % MCV 92.2 (81.0-99.0) fL MCH 29.7 (27.0-31.0) pg MCHC 32.2 (32.0-36.0) g/dL RDW 13.3 (12.0-15.0) % Plt Count 448 (130-450) 10^3/uL MPV 6.8 L (7.9-10.8) fL Neut # (Auto) SERVICE EMPLOYEE Lymph # (Auto) SERVICE EMPLOYEE [place] # (Auto) SERVICE EMPLOYEE Eos # (Auto) SERVICE EMPLOYEE Baso # (Auto) SERVICE EMPLOYEE Absolute Nucleated RBC SERVICE EMPLOYEE Total Counted 100 Band Neuts % (Manual) 11 H (0 - 10) % Abnorm Lymph % (Manual) 0 % Myelocytes % 2 H ( - 0) % Nucleated RBC % SERVICE EMPLOYEE Neutrophils # (Manual) 14.2 H (1.5-6.6) 10^3/uL Lymphocytes # (Manual) 1.8 (1.5-3.5) 10^3/uL Monocytes # (Manual) 1.4 H (0.0-1.0) 10^3/uL Eosinophils # (Manual) 0.2 (0-0.7) 10^3/uL Basophils # (Manual) 0.0 (0-0.1) 10^3/uL Nucleated RBCs 1 % Differential Comment MANUAL DIFFERENTIAL Manual Slide Review Indicated Platelet Estimate NORMAL (130-450,000) (NORMAL) Platelet Morphology RARE GIANT PLATELETS (NORMAL) RBC Morph Micro Appear 1+ HYPOCHROMASIA (NORMAL) Sodium (135-145) mmol/L Potassium (3.5-5.0) mmol/L Chloride (101-111) mmol/L Carbon Dioxide (21-32) mmol/L Anion Gap (6-13) BUN (6-20) mg/dL Creatinine (0.4-1.0) mg/dL Estimated GFR (MDRD) (>89) Glucose (70-100) mg/dL POC Whole Bld Glucose 325 H 337 H (70 - 100) mg/dL Calcium (8.5-10.3) mg/dL Sepsis Event Note (H) - Evaluation Current Stage of Sepsis: Sepsis - Sepsis Criteria Sepsis Criteria: WBC count greater than 12,000 or less than 4000 Assessment/Plan - Problem List (1) At risk for aspiration Impression: Her description is consistent with esophageal stricture. I will order UGI w barium and then if shows pathology Will request a surgical consult for EGD and stretch a stricture if one is found. (2) Obstructive sleep apnea Assessment/Plan: She also describes being told by her oxygen company, that her monitoring device shows she gets apnea. Previous hospitalist on shift has witnessed her snoring and apnea: she fell asleep while talking to her in the past 2 days, and later told her nurse she doesn't remember being seen by a Provider. She was told that a sleep study and sleep apnea management needs to be done as an outpatient. (2) CHF exacerbation Assessment/Plan: She has a Hx of Cardiomyopathy: EF was 35% several years ago, Echo done 12/26 showed LVEF had improved to 50% but she had Grade II diatolic dysfunction. She has a narrow range of optimal fluid status: fluid given this admission for LILY has improved her renal function but caused pulmonary edema 08/26. given iv Lasix 08/26 and she feels better today. She also needs to be up in a chair tid and not supine in bed all day. She is not happy at my request to get out of bed today but RN and aid will make it happen. Follow BMP daily. (3) Pyuria Assessment/Plan: After the above iv Lasix was given, good urine output resulted. Pt still has a Delaney, put in during her ICU stay, ordered to be discontinued 08/26 but the RN noticed that her urine turned from koki to white (hospitalist confirmed that). STAT U/A and culture done from yesterday and she is growing out E coli again. She was already on treatment for E coli that grew on her admission urine culture, yesterday was Day#2 of po Cipro and changed to Zosyn early this am so Day #1. (4) E. coli UTI Assessment/Plan: Pt started yesterday on po Cipro for a planned 3 day course. Changed to osyn (5) LILY (acute kidney injury) Assessment/Plan: Creat has improved with the hydration she was getting for several days. Laboratory Tests 08/22/18 08/23/18 08/25/18 23:49 09:25 04:40 Creatinine 1.3 H 1.6 H 1.2 H 08/27/18 05:14 Creatinine 1.4 H iv fluids stopped 08/26 am and she received lasix 08/26 Follow BMP daily. Avoid nephrotoxins. (6) Hyperkalemia Assessment/Plan: This also improved with renal function improvement. Follow K daily. (7) COPD exacerbation Assessment/Plan: Continue present steroid, nebs and Mucinex. Upright OOB in chair ordered to be done tid. (8) Diabetes mellitus with hyperglycemia Qualifiers: Diabetes mellitus type: type 2 Diabetes mellitus fpc insulin use: with fpc use Qualified Code(s): E11.65 - Type 2 diabetes mellitus with hyperglycemia; Z79.4 - penitentiary (current) use of insulin Assessment/Plan: Yesterday glucose was 198, 291, 337, 325. This morning she is been 184, 315 Continue carb-control diet, ss Insulin and fingerstick checks ac and hs. Increase his lantus from 32 u sq bid to 36 in am and 32 at pm. (9) Anemia Qualifiers: Anemia type: iron deficiency Assessment/Plan: Low Iron stores, adequate B12 and Folate. Pt will be started on oral iron replacement . Follow CBC intermittently. (10) Hypothyroidism Qualifiers: Hypothyroidism type: acquired Qualified Code(s): E03.9 - Hypothyroidism, unspecified Assessment/Plan: Pt on her home dose of replacement. Will check TSH regarding adequate dose. (11) Coronary artery disease Assessment/Plan: Continue her home meds. (12) Depression with anxiety Assessment/Plan: Pt on her home meds and stable.
--- NOTE | 2018-08-27 17:50 | XRAY Report ---
Reason: emesis after eating for a few months Procedure Date: 08/27/2018 Accession Number: [id number] / [id number] Procedure: [place] - UGI SBFT W/O Air CPT Code: FULL RESULT: EXAM: UPPER GI WITH SMALL BOWEL FOLLOW-THROUGH EXAM DATE: 08/27/2018 03:32 PM. CLINICAL HISTORY: Emesis after eating for a few months. COMPARISONS: None. TECHNIQUE: Routine single contrast upper gastrointestinal small bowel follow-through technique. Fluoroscopy Time: 1 minute 8 seconds. Number of fluoroscopy images: 20. FINDINGS: Note: Examination was limited by large body habitus and patient immobility. Entire exam was performed in the supine position, semirecumbent. Swallowing Mechanism: Normal swallowing reflex. No episodes of tracheal penetration or aspiration evident. Esophageal Motility: No appreciable dysmotility or tertiary contractions. Limited evaluation of the primary stripping wave due to technique. Esophageal Mucosa: No strictures or appreciable masses. Gastroesophageal Junction: No significant hiatal hernia. Mild gastroesophageal reflux was noted intermittently during the exam involving the distal third of the esophagus. Stomach: Stomach was suboptimally distended due to technique. No appreciable abnormalities of the gastric mucosal pattern. No appreciable masses or ulcers. Prompt gastric emptying into the small bowel. Duodenum: Normal duodenal mucosal pattern. No ulcers or diverticula identified. Jejunum: Normal mucosal pattern. No masses or obstruction. Ileum: Normal mucosal pattern. No masses or obstruction. The ileocecal valve is patent and competent with passage of contrast into the cecum. Note: Due to large body habitus usual compressed images of small bowel/terminal ileum were not performed. Other: None. IMPRESSION: 1. Mild intermittent gastroesophageal reflux noted. 2. Within limitations of technique, no significant abnormalities demonstrated. RADIA
[2018-08-27] MEDS: PIPERACILLIN/TAZOBACTAM 4.5 GM in SODIUM CHLORIDE 0.9% MINIBAG 100 ML IV SCH (20:59)
[2018-08-27] MEDS: ATORVASTATIN 10 MG TABLET PO SCH (21:03)
[2018-08-27] MEDS: PARoxetine 10 MG TABLET PO SCH (21:04)
[2018-08-28] MEDS: SODIUM CHLORIDE FLUSH 0.9% 10 ML SYRINGE IVP SCH ×2 (00:54→06:17)
[2018-08-28] MEDS: PIPERACILLIN/TAZOBACTAM 4.5 GM in SODIUM CHLORIDE 0.9% MINIBAG 100 ML IV SCH (06:16)
[2018-08-28] MEDS: LEVOTHYROXINE 75 MCG TABLET PO SCH (06:17)
[2018-08-28] MEDS: LEVOTHYROXINE 112 MCG TABLET PO SCH (06:17)
[2018-08-28] MEDS ORDERED: SODIUM CHLORIDE 0.65% NASAL SPRAY NAS PRN (07:49)
[2018-08-28] MEDS: INSULIN GLARGINE 300 UNIT/3 ML PEN SUBQ SCH (08:29)
[2018-08-28] MEDS: FAMOTIDINE 20 MG TABLET PO SCH (08:34)
[2018-08-28] MEDS: CARVEDILOL 3.125 MG TABLET PO SCH (08:34)
[2018-08-28] MEDS: SACCHAROMYCES BOULARDII 250 MG CAPSULE PO SCH (08:34)
[2018-08-28] MEDS: CALCIUM CARBONATE CHEW 500 MG TABLET PO SCH (08:34)
[2018-08-28] MEDS: FUROSEMIDE 20 MG/2 ML VIAL IVP SCH (08:35)
[2018-08-28] MEDS: INSULIN ASPART 300 UNIT/3 ML PEN SUBQ SCH ×2 (08:36→11:41)
[2018-08-28] MEDS: NYSTATIN POWDER 15 GM TOP SCH (08:37)
[2018-08-28] MEDS: HEPARIN 5,000 UNIT/ML VIAL SUBQ SCH (08:38)
[2018-08-28] MEDS: POLYETHYLENE GLYCOL 3350 17 GM PACKET PO SCH (08:49)
--- NOTE | 2018-08-28 11:22 | Discharge Plan ---
Discharge Plan Disposition: 01 Home, Self Care Condition: Good Prescriptions: Levofloxacin [Levaquin] 500 mg PO DAILY #3 tablet Nystatin [Nystop] 1 applic TOP BID #45 bottle Diet: Diabetic Activity Restrictions: Activity as Tolerated Shower Restrictions: No Driving Restrictions: No Assistance Devices: Wheelchair, Walker Instruction Topics: Heparin injection, Carvedilol tablets, Kidney Disease Potassium No Smoking: If you smoke, Please STOP! Call for help. Follow-up with: Flor Macario ARNP [Primary Care Provider] -
[2018-08-28 11:38] VITALS: BP 148/69
--- NOTE | 2018-09-02 21:56 | DISCHARGE SUMMARY ---
Physician: Brittnee Lord MD DATE OF ADMISSION: 08/23/2018 DATE OF DISCHARGE: 08/28/2018 DISCHARGE DIAGNOSES 1. Chronic obstructive pulmonary disease with exacerbation. 2. Acute on chronic combined systolic and diastolic congestive heart failure, stage C obstructive sl eep apnea. 3. Escherichia coli urinary tract infection. 4. Acute kidney injury. 5. Type 2 diabetes mellitus with hyperglycemia on long-term use of insulin. 6. At risk for aspiration. 7. Oral candidiasis. PRINCIPAL PROCEDURES 1. Chest x-ray, 08/22/2018 and 08/26/2018. Mild enlargement of cardiomediastinal silhouette. Diffu se pulmonary congestion as well as interstitial edema. Moderate CHF. No pulmonary consolidation. N o pneumothorax. Moderate shoulder degenerative changes. 2. Upper GI with small bowel follow through showed no significant hiatal hernia. Mild gastroesophag eal reflux disease noted during the exam involving the distal third of the esophagus. Stomach subopt imally distended, but prompt gastric emptying into small bowel. Normal duodenal mucosal, jejunal, il eal pattern. No masses or obstruction or diverticulosis. 3. Urine culture 08/23/2018, E. coli. 4. Blood cultures 08/23/2018, negative. 5. Urine culture 08/26/2018, E. coli. 6. Echocardiogram with moderately to severely dilated left ventricle, mild left ventricular hypertro phy and mild global hypokinesis with an ejection fraction of 45%. Left atrium mildly dilated. Moder ate pulmonary hypertension with a PAF of 59 mmHg. Normal right ventricular size and function. Scler otic aortic and mitral valves. Grade 2 diastolic dysfunction. As compared to prior echo, the left v entricular systolic function is less than the 50-55% previously recorded December 2017. HOSPITAL COURSE: This is an 82-year-old female who is morbidly obese and is taken care of by a young er couple who lives in her house and helps provide her care. One of them has been sick with a cold l ately. She came in with erratic breathing, shaking all over, and symptoms of cough, rhinorrhea, ches t congestion and sinus congestion. She is already on nasal cannula oxygen at home at 2 liters per mi nute. She was evaluated in the emergency room for this shaking and URI symptomatology. She basically had l ab abnormalities. She had a potassium of 6.1 to 6.3, creatinine of 1.6, and GFR down to 31. Glucose was 374. She has a past medical history of congestive heart failure, hypertension, hyperlipidemia, coronary ar enma disease, diabetes, hypothyroidism, obstructive sleep apnea, for which she uses CPAP. As such, she was felt to have possible chest congestion versus CHF. More than anything, though, she was felt to have acute kidney injury from poor p.o. intake and continuing to take her usual diuretics . Her diabetes was uncontrolled, and she was not felt to be volume overloaded with CHF, but volume d epleted. She has a history of chronic UTIs, and a urinalysis was felt to be positive for infection, and she wa s started on Zosyn for empiric therapy in this elderly woman. Because of her chest congestion, we di d not know if we were treating urine or chest, in spite of a negative chest x-ray. Her glucose was b rought down, she was hydrated for the creatinine, and was felt to be improving. The E. coli grew out of her urine, and she was on appropriate medicines and transitioned to Cipro. The worsening heart f ailure was noted on her echo. On 08/26/2018, she began having increased respiratory effort. A repea t chest x-ray was done, and she was felt to be in congestive heart failure from being over-treated wi th fluid, and what was unusual was her Delaney catheter started draining white, thick material; no urin e. She was recultured, and that second culture grew out E. coli again. She was gently diuresed agai n, shortness of breath got better, and she was finally felt stable enough to go back home. This woma n is already severely limited mobility and should probably consider palliative care. PHYSICAL EXAMINATION VITALS: Temperature is 36.3, pulse 68, blood pressure 148/69, respirations 18. She is 3-4 liters on nasal cannula to get a 92% saturation. She is 5 feet 8 inches tall and weighs 164 kg. GENERAL: She is severely overweight, has Genesis on intertriginous folds and on mouth. As such, she was given nystatin swish and spit. NECK: You cannot assess her neck for JVD because of this thickness. CHEST: She has diminished breath sounds diffusely in her lungs, occasional crackles, but if I have h er sit up and give me a really deep cough with a deep breath, the crackles disappears, so she may hav e atelectasis. HEART: She has a distant cardiac sound with a regular rate and rhythm. ABDOMEN: With a huge abdominal pannus that is protuberant, soft. Nontender. Unable to be assessed for organomegaly. Genesis intertrigo. EXTREMITIES: The legs have edema. She is unable to ambulate on her own but insists that she can go home with her providers. I had her seen by Physical Therapy. She was able to demonstrate independen t transfer out of bed with standby assist. She holds onto the walker and is able to ambulate in the room with good balance and even step lengths without complaints of fatigue or weakness. On oxygen, she maintained O2 sats of 96%. She really felt confident she could go home and have stabl e mobility. She again reiterated that she has two full-time caregivers. As such, the patient was discharged in stable condition. Greater than 30 minutes was spent coordinating discharge. INSTRUCTIONS 1. Have her please follow up with her primary care provider, Catrachita Macario. 2. She is to continue Levaquin for 3 more days. 3. Nystatin swish and spit as well as topically to intertriginous folds. TD: 09/02/2018 19:03
== END 2018-08-28 13:33 | disposition home or self-care (01) | DRG 682 ==
LOC: EDUNIT# → ED 23:25 → MS3 08-23 03:07 → OBSVTOIN 08-23 08:01 → ICU 08-23 08:34 → MS2 08-24 17:17
PROVIDERS: ADMIT Internal Medicine; ATTEND Specialist
DX: N17.9 Acute kidney failure, unspecified (principal); I50.43 Acute on chronic combined systolic (congestive) and diastolic (congestive) heart failure; J44.1 Chronic obstructive pulmonary disease with (acute) exacerbation; Z68.43 Body mass index [BMI] 50.0-59.9, adult; N39.0 Urinary tract infection, site not specified; B37.0 Candidal stomatitis; B37.2 Candidiasis of skin and nail; E87.5 Hyperkalemia; E11.65 Type 2 diabetes mellitus with hyperglycemia; I50.9 Heart failure, unspecified; I11.0 Hypertensive heart disease with heart failure; G47.33 Obstructive sleep apnea (adult) (pediatric); E03.9 Hypothyroidism, unspecified; J44.9 Chronic obstructive pulmonary disease, unspecified; G47.30 Sleep apnea, unspecified; F41.8 Other specified anxiety disorders; B96.20 Unspecified Escherichia coli [E. coli] as the cause of diseases classified elsewhere; E66.01 Morbid (severe) obesity due to excess calories; D50.9 Iron deficiency anemia, unspecified; R13.10 Dysphagia, unspecified; K21.9 Gastro-esophageal reflux disease without esophagitis; E78.00 Pure hypercholesterolemia, unspecified; E78.5 Hyperlipidemia, unspecified; I25.10 Atherosclerotic heart disease of native coronary artery without angina pectoris; J32.9 Chronic sinusitis, unspecified; R32 Unspecified urinary incontinence; R35.1 Nocturia; R35.0 Frequency of micturition; H91.90 Unspecified hearing loss, unspecified ear; Z99.81 Dependence on supplemental oxygen; Z71.3 Dietary counseling and surveillance; Z79.4 Long term (current) use of insulin; I25.2 Old myocardial infarction; Z87.440 Personal history of urinary (tract) infections
CPT/HCPCS: 36415 ×2; 71045 ×2; 74245 ×2; 80048 ×2; 80053 ×2; 81001 ×2; 81003; 82330 ×2; 82607 ×2; 82746 ×2; 82803 ×2; 82947 ×2; 83036 ×2; 83540 ×2; 83605 ×2; 83690 ×2; 83735 ×2; 83880 ×2; 84100 ×2; 84132; 84439 ×2; 84443 ×2; 84466 ×2; 84484 ×2; 85025 ×2; 87040 ×2; 87086 ×2; 87150 ×2; 87181 ×2; 87275 ×2; 87276 ×2; 93005 ×2; 93306 ×2; 94640 ×2; 96360 ×2; 97161; 97530; 99285 ×2; A9270; G0378; J1815

== ENCOUNTER 2018-08-30 05:15 | Outpatient (CLI) | payer MEDICARE | END 2018-08-30 05:16 | disposition critical access hospital (66) | LOC: EMS 05:15 | PROVIDERS: ATTEND Surgery | DX: E16.2 Hypoglycemia, unspecified (principal); R41.0 Disorientation, unspecified | CPT/HCPCS: A0425; A0429 ==

== ENCOUNTER 2018-08-30 05:44 | Emergency (ER) | payer MEDICARE ==
[2018-08-30 06:28] LABS: BASOPHILS % (AUTO) 0.9 %; EOSINOPHILS % (AUTO) 2.7 %; HGB - HEMOGLOBIN 11.4 g/dL (12.0-16.0); LYMPHOCYTES % (AUTO) 21.4 %; MEAN CORPUSCULAR HEMOGLOBIN 30.2 pg (27.0-31.0); MEAN CORPUSCULAR HGB CONC 33.1 g/dL (32.0-36.0); MEAN CORPUSCULAR VOLUME 91.4 fL (81.0-99.0); MONOCYTES % (AUTO) 8.7 %; NEUTROPHILS % (AUTO) 66.3 %; PLT - PLATELET COUNT 483 10^3/uL (130-450); RED BLOOD COUNT 3.78 10^6/uL (4.20-5.40); RED CELL DISTRIBUTION WIDTH 13.2 % (12.0-15.0); WHITE BLOOD COUNT 18.1 x10^3/uL (4.8-10.8)
--- NOTE | 2018-08-30 06:35 | ED Physician Documentation ---
History of Present Illness - Stated complaint Stated Complaint: LOW BLOOD SUGAR - Chief complaint Chief Complaint: Neuro - History obtained from History obtained from: Patient, EMS - History of Present Illness Timing: Today Pain level max: 0 Pain level now: 0 Improved by: eating Worsened by: insulin - Additonal information Additional information: 82-year-old female presents to the emergency department stating that her blood sugar was low this morning. EMS arrived, found her blood sugar to be 22. She is on insulin. They gave her oral glucose and drink juice. Her blood sugars gone up to 100 now. She is feeling better. Denies taking any extra insulin. She is otherwise asymptomatic. No nausea, no vomiting. Was recently treated for UTI with Levaquin. Review of Systems Ten Systems: 10 systems reviewed and negative Constitutional: denies: Fever, Chills Ears: denies: Ear pain Nose: denies: Rhinorrhea / runny nose, Congestion Throat: denies: Sore throat Cardiac: denies: Chest pain / pressure Respiratory: denies: Cough GI: denies: Abdominal Pain, Nausea, Vomiting, Diarrhea Skin: denies: Rash Musculoskeletal: denies: Neck pain, Back pain Neurologic: denies: Focal weakness, Numbness, Confused, Altered mental status, Headache PD PAST MEDICAL HISTORY - Past Medical History Past Medical History: Yes Cardiovascular: Congestive heart failure, Hypertension, High cholesterol, Coronary artery disease, [place] Respiratory: COPD, Shortness of breath, Sleep apnea, CPAP use, Other Endocrine/Autoimmune: Type 2 diabetes, HyPOthyroidism GI: None 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: Other : Incontinence, Nocturia, Frequency HEENT: Chronic sinusitis, Chronic hearing loss Psych: Depression, Anxiety Musculoskeletal: Fatigue Derm: Other drug resistant infections - Past Surgical History Past Surgical History: Yes /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: Hysterectomy HEENT: Cataracts, Tonsil/Adenoidectomy - Present Medications Home Medications: Ambulatory Orders Medication Instructions Recorded Confirmed Lovastatin [Altoprev] 40 mg ORAL QPM 06/23/14 08/23/18 Insulin Regular, Human [Novolin R] 0 - 40 units SUBQ TIDWM 06/22/15 08/23/18 PARoxetine [Paxil] 40 mg PO QPM 06/22/15 08/23/18 Carvedilol 3.125 mg PO DAILY 01/29/16 08/23/18 Insulin Detemir [Levemir Flextouch] 32 units SUBQ BID 05/15/17 08/23/18 Levothyroxine [Synthroid] 75 mcg PO QDAC #30 tablet 12/28/17 08/23/18 Levothyroxine [Synthroid] 112 mcg PO QDAC #30 tablet 12/28/17 08/23/18 Lisinopril 5 mg PO DAILY #30 tablet 12/28/17 08/23/18 Spironolactone [Aldactone] 25 mg PO DAILY #30 tablet 12/28/17 08/23/18 Furosemide 40 mg PO DAILY 08/23/18 08/23/18 Potassium Chloride [Klor-Con M20] 20 mg PO DAILYWM 08/23/18 08/23/18 hydroCHLOROthiazide [Hydrodiuril] 25 mg PO DAILY 08/23/18 08/23/18 Levofloxacin [Levaquin] 500 mg PO DAILY #3 tablet 08/28/18 Nystatin [Nystop] 1 applic TOP BID #45 bottle 08/28/18 - Allergies Allergies/Adverse Reactions: Allergies Allergy/AdvReac Type Severity Reaction Status Date / Time No Known Drug Allergies Allergy Verified 08/30/18 05:57 - Social History Does the pt smoke?: No Smoking Status: Never smoker Does the pt drink ETOH?: No Does the pt have substance abuse?: No - Immunizations Immunizations are current?: Yes - POLST Patient has POLST: No POLST Status: Full Code PD ED PE NORMAL - Vitals Vital signs reviewed: Yes - General General: Alert and oriented X 3, No acute distress, Well developed/nourished - HEENT HEENT: Moist mucous membranes - Neck Neck: Supple, no meningeal sign - Cardiac Cardiac: RRR, Strong equal pulses - Respiratory Respiratory: No respiratory distress, Clear bilaterally - Abdomen Abdomen: Soft, Non tender, Non distended - Derm Derm: Warm and dry, No rash - Extremities Extremities: No calf tenderness / cord - Neuro Neuro: Alert and oriented X 3 - Psych Psych: Normal mood, Normal affect Results - Vitals Vitals: Vital Signs - 24 hr 08/30/18 08/30/18 05:46 06:14 Temperature 34.7 C L Heart Rate 66 76 Respiratory 24 Rate Blood Pressure 155/55 H 165/80 H O2 Saturation 99 100 Oxygen O2 Source [Without Activity] Nasal cannula O2 Source Nasal cannula Oxygen Flow Rate 2 - Labs Labs: Laboratory Tests 08/30/18 08/30/18 06:05 06:05 WBC 18.1 H RBC 3.78 L Hgb 11.4 L Hct 34.6 L MCV 91.4 MCH 30.2 MCHC 33.1 RDW 13.2 Plt Count 483 H MPV 7.0 L Sodium 139 Potassium 4.1 Chloride 98 L Carbon Dioxide 32 Anion Gap 9.0 BUN 23 H Creatinine 1.0 Estimated GFR (MDRD) 53 L Glucose 171 H Calcium 9.3 Total Bilirubin 0.4 AST 43 H ALT 105 H Alkaline Phosphatase 516 H Total Protein 7.5 Albumin 3.0 L Globulin 4.5 H Albumin/Globulin Ratio 0.7 L Lipase 112 H PD MEDICAL DECISION MAKING - ED course Complexity details: reviewed old records, reviewed results, re-evaluated patient, considered differential, d/w patient ED course: 82-year-old female presents to the emergency department with hypoglycemia today. Her blood sugar improved but she is very drowsy in the emergency department. She has been without her antibiotics for the past 2 days for her UTI. She has worsening transaminitis that was not worked up in the hospital, will order an ultrasound and CT scan. Patient will be monitored in the emergency department for recurrent hypoglycemia, patient will be signed out to the oncoming emergency department physician for final disposition. This document was made in part using voice recognition software. While efforts are made to proofread this document, sound alike and grammatical errors may occur. Departure - Departure Clinical Impression: Hypoglycemia associated with diabetes, Transaminitis Leukocytosis Qualifiers: Leukocytosis type: unspecified Qualified Code(s): D72.829 - Elevated white blood cell count, unspecified Condition: Stable
[2018-08-30 06:43] LABS: ALBUMIN/GLOBULIN RATIO 0.7 (1.0-2.2); BILIRUBIN,TOTAL 0.4 mg/dL (0.2-1.0); CALCIUM 9.3 mg/dL (8.5-10.3); TOTAL PROTEIN 7.5 g/dL (6.7-8.2)
[2018-08-30 06:52] LABS: ABNORMAL LYMPHS % (MANUAL) 0 %
[2018-08-30] MEDS ORDERED: IOPAMIDOL-300 100 ML VIAL ONE (07:36)
[2018-08-30 08:36] LABS: BAND NEUTROPHILS % (MANUAL) 12 %; EOSINOPHILS # (MANUAL) 0.7 10^3/uL (0-0.7); LYMPHOCYTES # (MANUAL) 3.8 10^3/uL (1.5-3.5); LYMPHOCYTES % (MANUAL) 17 %; MONOCYTES # (MANUAL) 2.2 10^3/uL (0.0-1.0); MYELOCYTES % (MANUAL) 11 %; NEUTROPHILS # (MANUAL) 9.4 10^3/uL (1.5-6.6); NEUTROPHILS % (MANUAL) 40 %
[2018-08-30 08:38] LABS: PLATELET ESTIMATE, MANUAL INCREASED (>450,000) (NORMAL); PLATELET MORPHOLOGY 1+ LARGE PLATELETS (NORMAL); RBC MORPHOLOGY (MULTIPLE) 1+ POLYCHROMASIA (NORMAL)
[2018-08-30 08:39] LABS: DIFFERENTIAL COMMENT MANUAL DIFFERENTIAL
--- NOTE | 2018-08-30 09:04 | Ultrasound Report ---
Reason: elevated LFT's Procedure Date: 08/30/2018 Accession Number: [id number] / [id number] Procedure: US - Abdomen Limited CPT Code: FULL RESULT: EXAM: ABDOMEN ULTRASOUND LIMITED, RUQ EXAM DATE: 08/30/2018 07:37 AM. CLINICAL HISTORY: Elevated LFTs. COMPARISON: CT ABDOMEN/PELVIS W08/30/2018 8:47 AM. TECHNIQUE: Real-time scanning was performed with static images obtained. FINDINGS: Liver: Evaluation of liver is limited due to large body habitus and breathing motion, and parenchymal lesions could be obscured. Note: Liver parenchyma appears normal on comparison abdominal CT images. 19 cm. Main portal vein flow: Hepatopetal. Gallbladder: Gallbladder is distended measuring 13 x 5 x 5.5 cm in dimension. There is no wall thickening. There are multiple small gallstones largest measures 1 mm. Gallbladder was nontender to imaging. Biliary System: CBD measures 5.5 mm. No intrahepatic or extrahepatic ductal dilatation. Other: None. IMPRESSION: 1. Limited evaluation of the liver parenchyma as described. 2. Cholelithiasis without other supportive evidence of acute cholecystitis. 3. Gallbladder distention measuring 13 x 5 x 5.5 cm. RADIA
--- NOTE | 2018-08-30 09:29 | CT Report ---
Reason: abd pain, recent UTI, elevated LFT's, leukocytosis Procedure Date: 08/30/2018 Accession Number: [id number] / [id number] Procedure: CT - Abdomen/Pelvis W CPT Code: FULL RESULT: EXAM: CT ABDOMEN AND PELVIS EXAM DATE: 08/30/2018 08:47 AM. CLINICAL HISTORY: Abdominal pain, recent UTI, elevated LFTs, leukocytosis. COMPARISONS: None. TECHNIQUE: Routine helical CT imaging was performed through the abdomen and pelvis. IV contrast: 100 mL of Isovue-300 contrast. Enteric contrast: No. Reconstructions: Coronal and sagittal. In accordance with CT protocol optimization, one or more of the following dose reduction techniques were utilized for this exam: automated exposure control, adjustment of mA and/or KV based on patient size, or use of iterative reconstructive technique. FINDINGS: Lung Bases: There is mild dependent bibasilar atelectasis. Liver: Normal in size and density. Hepatic and portal veins are patent. No mass is appreciated. Gallbladder/Bile Ducts: Distended and meeting hydropic size criteria at 13 x 6 x 5.5 cm. No wall thickening or pericholecystic inflammation. Spleen: Normal. Pancreas: Normal. Adrenal Glands: Normal. Kidneys: Right kidney appears normal. There is marked streak and attenuation artifact from residual colonic barium limiting evaluation of the left kidney. Appearance of asymmetrically diminished attenuation/enhancement of the left kidney relative to the right consistent with shading artifact. No appreciable hydronephrosis or stone. No appreciable contour-deforming masses. Both kidneys are symmetric in size and shape. Peritoneal Cavity/Bowel: Marked streak and attenuation artifact from residual colonic barium evaluation of the large bowel and adjacent segments of small bowel. There is no appreciable abnormality of the visualized small bowel and no bowel dilatation. No appreciable free fluid or abnormal fluid collections. No appreciable adenopathy. Pelvic Organs: Normal. The bladder and visualized pelvic organs are within normal limits. Vasculature: Atherosclerotic deposition noted within the aorta and iliac vessels without apparent aneurysmal dilatation. Bones: No significant abnormality. Other: None. IMPRESSION: 1. Marked streak and attenuation artifact from colonic barium limits evaluation, particularly of the colon, segments of small bowel and left kidney, as described. 2. Distended gallbladder meeting hydropic size criteria, but no pericholecystic inflammation. RADIA
[2018-08-30 10:01] LABS: BILIRUBIN,URINE NEGATIVE (NEGATIVE); GLUCOSE, URINE (UA) NEGATIVE (NEGATIVE); KETONES,URINE (UA) NEGATIVE (NEGATIVE); LEUKOCYTE ESTERASE, URINE TRACE (NEGATIVE); NITRITE,URINE NEGATIVE (NEGATIVE); OCCULT BLOOD,URINE TRACE-INTA (NEGATIVE); PROTEIN,URINE NEGATIVE (NEGATIVE); UROBILINOGEN,URINE 0.2 (NORMAL) E.U./dL (NORMAL)
[2018-08-30 10:03] LABS: CLARITY,URINE CLEAR (CLEAR)
[2018-08-30 10:09] LABS: BACTERIA,URINE Rare /HPF (None Seen); RBC,URINE 0-5 /HPF (0-5); SQUAMOUS EPITHELIAL CELL,UR MOD Squamous (<= Few)
[2018-08-30] MEDS ORDERED: IOPAMIDOL-300 100 ML VIAL IVP ONE (10:12)
--- NOTE | 2018-08-30 11:41 | ED Physician Documentation ---
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 : Incontinence, Nocturia, Frequency HEENT: Chronic sinusitis, Chronic hearing loss Psych: Depression, Anxiety Musculoskeletal: Fatigue Derm: Other drug resistant infections - Past Surgical History Past Surgical History: 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 HEENT: Cataracts, Tonsil/Adenoidectomy - Present Medications Home Medications: Ambulatory Orders Medication Instructions Recorded Confirmed Lovastatin [Altoprev] 40 mg ORAL QPM 06/23/14 08/23/18 Insulin Regular, Human [Novolin R] 0 - 40 units SUBQ TIDWM 06/22/15 08/23/18 PARoxetine [Paxil] 40 mg PO QPM 06/22/15 08/23/18 Carvedilol 3.125 mg PO DAILY 01/29/16 08/23/18 Insulin Detemir [Levemir Flextouch] 32 units SUBQ BID 05/15/17 08/23/18 Levothyroxine [Synthroid] 75 mcg PO QDAC #30 tablet 12/28/17 08/23/18 Levothyroxine [Synthroid] 112 mcg PO QDAC #30 tablet 12/28/17 08/23/18 Lisinopril 5 mg PO DAILY #30 tablet 12/28/17 08/23/18 Spironolactone [Aldactone] 25 mg PO DAILY #30 tablet 12/28/17 08/23/18 Furosemide 40 mg PO DAILY 08/23/18 08/23/18 Potassium Chloride [Klor-Con M20] 20 mg PO DAILYWM 08/23/18 08/23/18 hydroCHLOROthiazide [Hydrodiuril] 25 mg PO DAILY 08/23/18 08/23/18 Levofloxacin [Levaquin] 500 mg PO DAILY #3 tablet 08/28/18 Nystatin [Nystop] 1 applic TOP BID #45 bottle 08/28/18 - Allergies Allergies/Adverse Reactions: Allergies Allergy/AdvReac Type Severity Reaction Status Date / Time No Known Drug Allergies Allergy Verified 08/30/18 05:57 - Social History Does the pt smoke?: No Smoking Status: Never smoker Does the pt drink ETOH?: No Does the pt have substance abuse?: No - Immunizations Immunizations are current?: Yes - POLST Patient has POLST: No POLST Status: Full Code Results - Vitals Vitals: Oxygen O2 Source [] Nasal cannula O2 Source Room air Oxygen Flow Rate 2 - Labs Labs: Laboratory Tests 08/30/18 08/30/18 08/30/18 06:05 06:05 07:35 WBC 18.1 H RBC 3.78 L Hgb 11.4 L Hct 34.6 L MCV 91.4 MCH 30.2 MCHC 33.1 RDW 13.2 Plt Count 483 H MPV 7.0 L Neut # (Auto) Not Reportable Lymph # (Auto) Not Reportable Cocke # (Auto) Not Reportable Eos # (Auto) Not Reportable Baso # (Auto) Not Reportable Absolute Nucleated RBC Not Reportable Total Counted 100 Band Neuts % (Manual) 12 H Reactive Lymphs % (Man) 4 Abnorm Lymph % (Manual) 0 Myelocytes % 11 H Nucleated RBC % Not Reportable Neutrophils # (Manual) 9.4 H Lymphocytes # (Manual) 3.8 H Monocytes # (Manual) 2.2 H Eosinophils # (Manual) 0.7 Basophils # (Manual) 0.0 Differential Comment MANUAL DIFFERENTIAL Platelet Estimate INCREASED (>450,000) Platelet Morphology 1+ LARGE PLATELETS RBC Morph Micro Appear 1+ POLYCHROMASIA Sodium 139 Potassium 4.1 Chloride 98 L Carbon Dioxide 32 Anion Gap 9.0 BUN 23 H Creatinine 1.0 Estimated GFR (MDRD) 53 L Glucose 171 H Lactic Acid 2.7 H Calcium 9.3 Total Bilirubin 0.4 AST 43 H ALT 105 H Alkaline Phosphatase 516 H Total Protein 7.5 Albumin 3.0 L Globulin 4.5 H Albumin/Globulin Ratio 0.7 L Lipase 112 H Urine Color Urine Clarity Urine pH Ur Specific [place] Urine Protein Urine Glucose (UA) Urine Ketones Urine Occult Blood Urine Nitrite Urine Bilirubin Urine Urobilinogen Ur Leukocyte Esterase Urine RBC Urine WBC Ur Squamous Epith Cells Urine Bacteria Ur Microscopic Review Urine Culture Comments 08/30/18 08:50 WBC RBC Hgb Hct MCV MCH MCHC RDW Plt Count MPV Neut # (Auto) Lymph # (Auto) Cocke # (Auto) Eos # (Auto) Baso # (Auto) Absolute Nucleated RBC Total Counted Band Neuts % (Manual) Reactive Lymphs % (Man) Abnorm Lymph % (Manual) Myelocytes % Nucleated RBC % Neutrophils # (Manual) Lymphocytes # (Manual) Monocytes # (Manual) Eosinophils # (Manual) Basophils # (Manual) Differential Comment Platelet Estimate Platelet Morphology RBC Morph Micro Appear Sodium Potassium Chloride Carbon Dioxide Anion Gap BUN Creatinine Estimated GFR (MDRD) Glucose Lactic Acid Calcium Total Bilirubin AST ALT Alkaline Phosphatase Total Protein Albumin Globulin Albumin/Globulin Ratio Lipase Urine Color YELLOW Urine Clarity CLEAR Urine pH 6.0 Ur Specific [place] 1.015 Urine Protein NEGATIVE Urine Glucose (UA) NEGATIVE Urine Ketones NEGATIVE Urine Occult Blood TRACE-INTA Urine Nitrite NEGATIVE Urine Bilirubin NEGATIVE Urine Urobilinogen 0.2 (NORMAL) Ur Leukocyte Esterase TRACE H Urine RBC 0-5 Urine WBC 4-5 Ur Squamous Epith Cells MOD Squamous H Urine Bacteria Rare Ur Microscopic Review INDICATED Urine Culture Comments NOT INDICATED - Rads (name of study) RUQ U/S Radiology: Prelim report reviewed, EMP read contemporaneously, See rad report (1) Limited evaluation of the liver parenchyma as described. 2) Cholelithiasis without other supportive evidence of acute cholecystitis. 3) Gallbladder distention measuring 13 x 5 [address] abd/pelvis Radiology: Prelim report reviewed, EMP read contemporaneously, See rad report (1) Market streak and attenuation artifact from colonic barium limits evaluation, particularly of the colon, segments of the small bowel and left kidney, as described. 2) Distended gallbladder meeting hydropic size criteria, but no pericholecystic inflammation.) PD MEDICAL DECISION MAKING - ED course Complexity details: reviewed old records, reviewed results, re-evaluated patient, considered differential, d/w patient, d/w family ED course: At change of shift the patient's care was turned over to me pending results of ultrasound and CT of the abdomen and pelvis. The ultrasound reveals cholelithiasis, without evidence of acute cholecystitis. The CT scan reveals a distended gallbladder, without evidence of pericholecystic inflammation. After treatment for her hypoglycemia, the patient's mental status returned to normal. She does not appear septic, and I suspect the initial lactate level of 2.7 as a result of the hypoglycemic episode. Prior to discharge she was able to eat a meal without difficulty, and demonstrated ability to ambulate with a walker. She reports that her strength feels back to her baseline. 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 Departure - Departure Disposition: 01 Home, Self Care Clinical Impression: Hypoglycemia associated with diabetes, Transaminitis Leukocytosis Qualifiers: Leukocytosis type: unspecified Qualified Code(s): D72.829 - Elevated white blood cell count, unspecified Condition: Stable Instructions: ED Diabetes Hypoglycemia Oral Agent Follow-Up: Chelsey Cao DNP [Credentialed Staff Provider] - Comments: Continue your diabetes medication as previously prescribed. You should check your blood sugars twice daily. Follow-up with your primary physician within 1 week. Call to schedule an appointment. Return to the emergency department if you develop recurrent hypoglycemia, abdominal pain or vomiting, or otherwise worsening symptoms. Discharge Date/Time: 08/30/18 12:50
[2018-08-30 13:07] VITALS: BP 182/81
== END 2018-08-30 12:50 | disposition home or self-care (01) ==
LOC: EDUNIT# → ED 05:44
DX: E11.649 Type 2 diabetes mellitus with hypoglycemia without coma (principal); R74.0 Nonspecific elevation of levels of transaminase and lactic acid dehydrogenase [LDH]; D72.829 Elevated white blood cell count, unspecified; Z79.4 Long term (current) use of insulin; I11.0 Hypertensive heart disease with heart failure; I50.9 Heart failure, unspecified; E78.00 Pure hypercholesterolemia, unspecified; I25.10 Atherosclerotic heart disease of native coronary artery without angina pectoris; I25.2 Old myocardial infarction; E03.9 Hypothyroidism, unspecified
CPT/HCPCS: 36415; 74177; 76705; 80053; 81001; 83605; 83690; 85025; 99283; 99285; Q9967; 81003; 87086

== ENCOUNTER 2018-10-17 06:37 | Outpatient (CLI) | payer MEDICARE | END 2018-10-17 06:38 | disposition critical access hospital (66) | LOC: EMS 06:37 | PROVIDERS: ATTEND Surgery | DX: R53.1 Weakness (principal) | CPT/HCPCS: A0425; A0429 ==

== ENCOUNTER 2018-10-17 07:08 | Inpatient (IN) | payer MEDICARE ==
[2018-10-17] MEDS ORDERED: SODIUM CHLORIDE 0.9% 1,000 ML IV ONE (07:23)
--- NOTE | 2018-10-17 07:25 | ED Physician Documentation ---
History of Present Illness - Stated complaint Stated Complaint: WEAKNESS - History obtained from History obtained from: Patient - History of Present Illness Timing: Today - Additonal information Additional information: 82-year-old female with a history of COPD and diabetes has developed weakness. She states that over the past 2 days that she has had excessive amounts of water she is urinated excessively she has become weak and fatigued. She confirms shaking chills last night. She is usually able to get herself in out of bed and to the bathroom with a walker this morning she was unable to stand at the side of her bed.She does check her sugars they have been running in the 300s. Review of Systems Constitutional: reports: Chills, Fatigue. denies: Fever Eyes: denies: Decreased vision Ears: denies: Ear pain Nose: denies: Rhinorrhea / runny nose, Congestion Throat: denies: Sore throat Cardiac: denies: Chest pain / pressure, Palpitations Respiratory: reports: Dyspnea, Cough GI: denies: Abdominal Pain, Nausea, Vomiting, Constipation, Diarrhea : reports: Frequency. denies: Dysuria Skin: denies: Rash Musculoskeletal: denies: Neck pain, Back pain, Extremity pain Neurologic: reports: Generalized weakness. 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: Other : Incontinence, Nocturia, Frequency HEENT: Chronic sinusitis, Chronic hearing loss Psych: Depression, Anxiety Musculoskeletal: Fatigue Derm: Other drug resistant infections - Past Surgical History Past Surgical History: Yes /CHIEF CREW SCHEDULER: Hysterectomy HEENT: Cataracts, Tonsil/Adenoidectomy - Present Medications Home Medications: Ambulatory Orders Medication Instructions Recorded Confirmed Lovastatin [Altoprev] 40 mg ORAL QPM 06/23/14 10/17/18 Insulin Regular, Human [Novolin R] 0 - 40 units SUBQ TIDWM 06/22/15 10/17/18 PARoxetine [Paxil] 40 mg PO QPM 06/22/15 10/17/18 Carvedilol 3.125 mg PO DAILY 01/29/16 10/17/18 Insulin Detemir [Levemir Flextouch] 32 units SUBQ BID 05/15/17 10/17/18 Levothyroxine [Synthroid] 75 mcg PO QDAC #30 tablet 12/28/17 10/17/18 Levothyroxine [Synthroid] 112 mcg PO QDAC #30 tablet 12/28/17 10/17/18 Lisinopril 5 mg PO DAILY #30 tablet 12/28/17 10/17/18 Spironolactone [Aldactone] 25 mg PO DAILY #30 tablet 12/28/17 10/17/18 Furosemide 40 mg PO DAILY 08/23/18 10/17/18 Potassium Chloride [Klor-Con M20] 20 mg PO DAILYWM 08/23/18 10/17/18 hydroCHLOROthiazide [Hydrodiuril] 25 mg PO DAILY 08/23/18 10/17/18 Levofloxacin [Levaquin] 500 mg PO DAILY #3 tablet 08/28/18 Nystatin [Nystop] 1 applic TOP BID #45 bottle 08/28/18 - Allergies Allergies/Adverse Reactions: Allergies Allergy/AdvReac Type Severity Reaction Status Date / Time No Known Drug Allergies Allergy Verified 10/17/18 07:29 - Social History Does the pt smoke?: No Smoking Status: Never smoker Does the pt drink ETOH?: No Does the pt have substance abuse?: No - Immunizations Immunizations are current?: Yes - POLST Patient has POLST: No POLST Status: Full Code PD ED PE NORMAL - Vitals Vital signs reviewed: Yes - General General: Alert and oriented X 3, No acute distress, Well developed/nourished - HEENT HEENT: Atraumatic, PERRL, EOMI - Neck Neck: Supple, no meningeal sign, No bony TTP - Cardiac Cardiac: RRR, No murmur - Respiratory Respiratory: No respiratory distress, Clear bilaterally - Abdomen Abdomen: Soft, Non tender - Back Back: No CVA TTP, No spinal TTP - Derm Derm: Normal color, Warm and dry, No rash, Other (dry skin ) - Extremities Extremities: No deformity, No edema - Neuro Neuro: Alert and oriented X 3, 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, No motor deficit, No sensory deficit, Normal speech Eye Opening: Spontaneous Motor: Obeys Commands Verbal: Oriented GCS Score: 15 - Psych Psych: Normal mood, Normal affect Results - Vitals Vitals: Vital Signs - 24 hr 10/17/18 10/17/18 10/17/18 07:09 08:12 09:42 Temperature 36.5 C Heart Rate 101 H 92 92 Respiratory 20 16 18 Rate Blood Pressure 113/46 L 116/41 L 128/72 O2 Saturation 93 94 94 Oxygen O2 Source [] Nasal cannula O2 Source Room air Oxygen Flow Rate 3 - Labs Labs: Laboratory Tests 10/17/18 10/17/18 10/17/18 07:40 07:40 07:40 WBC 15.4 H RBC 4.32 Hgb 12.7 Hct 38.8 MCV 89.7 MCH 29.3 MCHC 32.6 RDW 13.3 Plt Count 341 MPV 7.0 L Neut # (Auto) 12.5 H Lymph # (Auto) 1.1 L [place] # (Auto) 1.6 H Eos # (Auto) 0.1 Baso # (Auto) 0.1 Absolute Nucleated RBC 0.01 Nucleated RBC % 0.0 Sodium 132 L Potassium 4.9 Chloride 89 L Carbon Dioxide 28 Anion Gap 15.0 H BUN 35 H Creatinine 1.5 H Estimated GFR (MDRD) 33 L Glucose 259 H Lactic Acid Calcium 10.2 Total Bilirubin 0.8 AST 51 H ALT 42 Alkaline Phosphatase 128 H Troponin I 0.05 B-Natriuretic Peptide Total Protein 7.7 Albumin 3.7 Globulin 4.0 Albumin/Globulin Ratio 0.9 L Lipase 55 H Urine Color Urine Clarity Urine pH Ur Specific [place] Urine Protein Urine Glucose (UA) Urine Ketones Urine Occult Blood Urine Nitrite Urine Bilirubin Urine Urobilinogen Ur Leukocyte Esterase Urine RBC Urine WBC Ur Squamous Epith Cells Urine Bacteria Ur Microscopic Review Urine Culture Comments 10/17/18 10/17/18 10/17/18 07:40 07:40 08:10 WBC RBC Hgb Hct MCV MCH MCHC RDW Plt Count MPV Neut # (Auto) Lymph # (Auto) [place] # (Auto) Eos # (Auto) Baso # (Auto) Absolute Nucleated RBC Nucleated RBC % Sodium Potassium Chloride Carbon Dioxide Anion Gap BUN Creatinine Estimated GFR (MDRD) Glucose Lactic Acid 3.1 H* Calcium Total Bilirubin AST ALT Alkaline Phosphatase Troponin I B-Natriuretic Peptide 44 Total Protein Albumin Globulin Albumin/Globulin Ratio Lipase Urine Color YELLOW Urine Clarity CLOUDY Urine pH 6.0 Ur Specific [place] 1.010 Urine Protein TRACE Urine Glucose (UA) 100 H Urine Ketones NEGATIVE Urine Occult Blood TRACE-INTA Urine Nitrite NEGATIVE Urine Bilirubin NEGATIVE Urine Urobilinogen 0.2 (NORMAL) Ur Leukocyte Esterase MODERATE H Urine RBC 0-5 Urine WBC >25 H Ur Squamous Epith Cells FEW Squamous Urine Bacteria Many H Ur Microscopic Review INDICATED Urine Culture Comments INDICATED - Rads (name of study) chest Radiology: Prelim report reviewed (Impression: Clear lungs. No acute findings.), EMP read indepedently, See rad report Procedures - IVC sono (time) 0720 Bedside IVC sono: IVC measures (cm) (1.17), Dehydration (es t 1-2 liter deficit) PD MEDICAL DECISION MAKING - ED course Complexity details: reviewed old records, reviewed results, re-evaluated patient, considered differential, d/w patient ED course: 82-year-old female with a history of COPD has acute weakness and fatigue and she does have associated dehydration urinary tract infection elevated white blood cell count and elevated lactate.She is administered saline 1 L bolus. She does have a history of congestive heart failure and on interrogation of the inferior vena cava the patient was dehydrated. She will need admission to the hospital for continued care. She is administered Rocephin intravenously Departure - Departure Disposition: 66 [facility] DC/Xfer Clinical Impression: Dehydration, Weakness Urinary tract infection Qualifiers: Urinary tract infection type: acute cystitis Hematuria presence: without hematuria Qualified Code(s): N30.00 - Acute cystitis without hematuria Condition: Stable
[2018-10-17 07:51] LABS: BASOPHILS # (AUTO) 0.1 10^3/uL (0.0-0.1); BASOPHILS % (AUTO) 0.5 %; EOSINOPHILS # (AUTO) 0.1 10^3/uL (0.0-0.7); EOSINOPHILS % (AUTO) 0.5 %; HGB - HEMOGLOBIN 12.7 g/dL (12.0-16.0); LYMPHOCYTES # (AUTO) 1.1 10^3/uL (1.5-3.5); LYMPHOCYTES % (AUTO) 7.4 %; MEAN CORPUSCULAR HEMOGLOBIN 29.3 pg (27.0-31.0); MEAN CORPUSCULAR HGB CONC 32.6 g/dL (32.0-36.0); MEAN CORPUSCULAR VOLUME 89.7 fL (81.0-99.0); MONOCYTES # (AUTO) 1.6 10^3/uL (0.0-1.0); MONOCYTES % (AUTO) 10.2 %; NEUTROPHILS # (AUTO) 12.5 10^3/uL (1.5-6.6); NEUTROPHILS % (AUTO) 81.4 %; PLT - PLATELET COUNT 341 10^3/uL (130-450); RED BLOOD COUNT 4.32 10^6/uL (4.20-5.40); RED CELL DISTRIBUTION WIDTH 13.3 % (12.0-15.0); WHITE BLOOD COUNT 15.4 x10^3/uL (4.8-10.8)
[2018-10-17 08:03] LABS: ALBUMIN 3.7 g/dL (3.2-5.5); ALBUMIN/GLOBULIN RATIO 0.9 (1.0-2.2); BILIRUBIN,TOTAL 0.8 mg/dL (0.2-1.0); CALCIUM 10.2 mg/dL (8.5-10.3); CREATININE 1.5 mg/dL (0.4-1.0); TOTAL PROTEIN 7.7 g/dL (6.7-8.2)
[2018-10-17 08:19] LABS: BILIRUBIN,URINE NEGATIVE (NEGATIVE); GLUCOSE, URINE (UA) 100 mg/dL (NEGATIVE); KETONES,URINE (UA) NEGATIVE (NEGATIVE); LEUKOCYTE ESTERASE, URINE MODERATE (NEGATIVE); NITRITE,URINE NEGATIVE (NEGATIVE); OCCULT BLOOD,URINE TRACE-INTA (NEGATIVE); PROTEIN,URINE TRACE mg/dL (NEGATIVE); UROBILINOGEN,URINE 0.2 (NORMAL) E.U./dL (NORMAL)
[2018-10-17 08:22] LABS: CLARITY,URINE CLOUDY (CLEAR)
[2018-10-17 08:31] LABS: BACTERIA,URINE Many /HPF (None Seen); RBC,URINE 0-5 /HPF (0-5); SQUAMOUS EPITHELIAL CELL,UR FEW Squamous (<= Few)
--- NOTE | 2018-10-17 08:48 | XRAY Report ---
Reason: chest pain Procedure Date: 10/17/2018 Accession Number: [id number] / [id number] Procedure: XR - Chest 1 View X-Ray CPT Code: 38583 FULL RESULT: EXAM: CHEST RADIOGRAPHY EXAM DATE: 10/17/2018 08:25 AM. CLINICAL HISTORY: Chest pain. COMPARISON: None. TECHNIQUE: 1 view. FINDINGS: Lungs/Pleura: No focal opacities evident. No pleural effusion. No pneumothorax. Mediastinum: Within exam limitations, the cardiomediastinal contour is normal. Other: Deformity proximal left humerus. IMPRESSION: Clear lungs. No acute findings. RADIA
[2018-10-17] MEDS ORDERED: cefTRIAXone 1 GM in SODIUM CHLORIDE 0.9% MINIBAG 100 ML IV STA (09:44)
[2018-10-17] MEDS ORDERED: SODIUM CHLORIDE FLUSH 0.9% 10 ML SYRINGE IVP PRN (10:32)
--- NOTE | 2018-10-17 10:53 | HISTORY & PHYSICAL EXAMINATION ---
Chief Complaint - Chief Complaint Chief Complaint: was getting weak and urinating alot History of Present Illness - Admitted From Admitted From:: ED - History Obtained From Records Reviewed: EMR History obtained from: patient and ED physician, and ER note - History of Present Illness HPI Comment/Other: 82 yo female who lives in a jail with another couple presented with progressive weakness. Was in usual state of health until ~ 2 days ago (gets up and around at home with her 3L chronic nasal cannula), but as of ~ 2 days ago noted exessive thirst, and polyuria , denies dysuria. (clarifies this is not frequency of small amount, but increased volume). Also felt very cold in bed w/ chills. Denies actual fever, no true rigors. Also increasing fatigue to the point she was unable to get out of bed. No shortness of breath, cough, orthopnea, no CP, palpitations, no Nausea, vomiting, Abdominal pain or change in bowel habits , other than unformed BM yesterday and today (once/day). She had to call 911, and they had trouble lifting her. She notes her sugars have also been higher. "usually 225-250" but have been ~ 300 on her regimen of 32 u bid lantus and what she reports to be30 novolog / meal. + occas hypoglycemia ,last ~ 1 month ago w/ glucose 23. In the ED she was afebrile , hemodynamically stable w/ SBP 113/46 , mildy elevated HR 101, no tachypnea CBC notable for leukocytosis WBC 15.4 with no bandemia, CXR no acute finding, UA with significant pyuria, bacturia Chemistries notable for Mild hyponatemia Na 132 BUN/Cr 35/1.5 c/w 23/1.0 08/30/18 Lactate 3.1 2018 Baseline Cr appears ~ 1.4 (rarely Cr 1.0 2016 Cr was .6-.9 Cr essentially doubled since 2016 1 Liter NS in ED troponin neg PMH most notable for DM2 w/ A1C, HFrEF EF 40-45% 08/2018, OSAon CPAP, HTn,CAD w/ MO hx History - Past Medical History Cardiovascular: reports: Congestive heart failure, Hypertension, High cholesterol, Coronary artery disease, MO (MO history, (reports dyspnea as ischemic symptom) HFmedrangeEF 40-45%) Respiratory: reports: COPD, Shortness of breath, Sleep apnea (uses cpap), CPAP use, Other Endocrine/Autoimmune: reports: Type 2 diabetes, HyPOthyroidism GI: reports: None 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: Other : reports: Incontinence, Nocturia, Frequency HEENT: reports: Chronic sinusitis, Chronic hearing loss Psych: reports: Depression, Anxiety Musculoskeletal: reports: Fatigue Derm: reports: Other drug resistant infections MRSA Hx?: Yes Other Past Medical History: on home O2 @ 3l - Past Surgical History /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: Hysterectomy HEENT: reports: Cataracts, Tonsil/Adenoidectomy - Family & Social History Family History: Mother: , Alzheimer's Disease, Father: , Sister: , Other family: Family History Comment/Other: The patient's father at age 40 of pulmonary embolism and the patient's mother at age 84 of complications of Alzheimer's disease. The patient had a daughter with Down syndrome who recently at age 59, and denies any history of cancer or heart disease in the family. Her sister of a cerebral aneurysm. Living Situation: Other (younger couple lives in her house and helps care for her) Social History Notes: , 6 kids, 4 grandkids, w/ great grand kids on the way, Single story house, lives with another couple (? jail). NO ETOH, smoked 1.5 ppd from age 24>>1990 30 yrs; ~ 45 pack yrs - Substance History Use: Uses substance without health or social issues: NONE - POLST Patient has POLST: No POLST Status: Full Code Meds/Allgy - Home Medications Home Medications: Ambulatory Orders Medication Instructions Recorded Confirmed Lovastatin [Altoprev] 40 mg ORAL QPM 06/23/14 10/17/18 Insulin Regular, Human [Novolin R] 0 - 40 units SUBQ TIDWM 06/22/15 10/17/18 PARoxetine [Paxil] 40 mg PO QPM 06/22/15 10/17/18 Carvedilol 3.125 mg PO DAILY 01/29/16 10/17/18 Insulin Detemir [Levemir Flextouch] 32 units SUBQ BID 05/15/17 10/17/18 Levothyroxine [Synthroid] 75 mcg PO QDAC #30 tablet 12/28/17 10/17/18 Levothyroxine [Synthroid] 112 mcg PO QDAC #30 tablet 12/28/17 10/17/18 Lisinopril 5 mg PO DAILY #30 tablet 12/28/17 10/17/18 Spironolactone [Aldactone] 25 mg PO DAILY #30 tablet 12/28/17 10/17/18 Furosemide 40 mg PO DAILY 08/23/18 10/17/18 Potassium Chloride [Klor-Con M20] 20 mg PO DAILYWM 08/23/18 10/17/18 hydroCHLOROthiazide [Hydrodiuril] 25 mg PO DAILY 08/23/18 10/17/18 - Allergies Allergies/Adverse Reactions: Allergies Allergy/AdvReac Type Severity Reaction Status Date / Time No Known Drug Allergies Allergy Verified 10/17/18 07:29 Review of Systems - Constitutional Constitutional: reports: Fatigue, Weakness (as per HPI). denies: Poor appetite, Weight gain, Weight loss - Eyes Eyes: reports: Corrective lenses (glasses are new for recent vision change) - Ears, Nose & Throat Ears, Nose & Throat: reports: Dentures. denies: Hearing loss, Hearing aids, Nasal obstruction - Cardiovascular Cariovascular: denies: Palpitations, Chest pain, Lightheadedness - Respiratory Respiratory: reports: Other (chronic 02 3 liters). denies: Cough, Sputum production, Orthopnea - Gastrointestinal Gastrointestinal: reports: Diarrhea (occas pudding like stool, but no diarrhea, no constipation). denies: Abdominal pain, Constipation - Genitourinary Genitourinary: denies: Dysuria, Frequency, Urgency - Musculoskeletal Musculoskeletal: reports: Other (limited by obesity) - Neurological Neurological: denies: General weakness, Focal weakness, Headache, Dizziness - Endocrine Endocrine: reports: Polyuria, Polydypsia (as per HPI). denies: Intolerance to cold, Intolerance to heat Exam - Vital Signs Reviewed Vital Signs: Yes Vital Signs: Vital Signs x48h Temp Pulse Resp BP Pulse Ox 10/17/18 09:42 92 18 128/72 94 10/17/18 08:12 92 16 116/41 L 94 10/17/18 07:09 36.5 C 101 H 20 113/46 L 93 - Physical Exam General Appearance: positive: No acute distress, Other (Morbidly obese older female, looks < stated age, lying in bed, animated, alert) Eyes Bilateral: positive: PERRL, EOMI, Other (wearing glasses, pupils ~ 3mm) ENT: positive: Dry mucous membranes (slightly dry , white coating on tongue, upper and lower dentures) Neck: positive: No JVD (unable to assess JVD/ full neck). negative: Lymphadenopathy (R), Lymphadenopathy (L), Stiff neck, Carotid bruit Respiratory: positive: No respiratory distress, Breath sounds nml (wearing home flow 3 L NC) Cardiovascular: positive: Regular rate & rhythm, No murmur Abdomen: positive: Other (obese abd/ pannus, no evident scars, + bS, soft , NT , no suprapubic tenderness, unable to apprecitae organomegaly given habitus, groin folds clean) Back: negative: CVA tenderness (R), CVA tenderness (L) Skin: positive: Warm, Dry Extremities: positive: No pedal edema Neurologic/Psychiatric: positive: Oriented x3, Mood/affect nml Conclusion/Plan - Problem List (1) Urinary tract infection Conclusion/Plan: UTI underlying uncontrolled DM as risk factor Continue empiric ceftriaxone f/u urine sensitivities Leukocytosis likely related to both volume depletion and infection; Recheck WBC in am DM control VTE prohylaxis GFR limits lovenox dose 30 daily for now morbid obesity confounds dose Pharmacy may increase to 40 mg / day if GFR improves w/ volume repletion Qualifiers: Urinary tract infection type: acute cystitis Hematuria presence: without hematuria Qualified Code(s): N30.00 - Acute cystitis without hematuria (2) Volume depletion Conclusion/Plan: Modest volume depletion, Hemodynamically stable got 1L in ED continue at 63cc/hr (1.5 L/ day) (3) Sepsis Conclusion/Plan: 2/4 SIRS (WBC, mild HR elevation, no RR>20, no Fever, no confusion, + lactate) NO significant hemodynamic instability I suspect the lactate 3.1 is more related to volume contraction Has received 1L NS, reduce rate, continue NS Recheck lactate (4) HFrEF (heart failure with reduced ejection fraction) Conclusion/Plan: HFrEF EF 40-45% 08/2018, OSAon CPAP, HTn,CAD w/ MO hx (technically what is now called HFmidrangeEF Compensated continue home coreg (unclear why just once daily) BP and HR leave plenty of room for bid dosing; consider bid on d/c if HR / BP still warrant standard dosng Holding home HCTZ, spironolactone and Lasix due to volume depletion can likey resume all on d/c (HCTZ w/ the rogelio and Lasix seems redundant, consider stop HcTZ continue low dose ACEI (5) Hypothyroidism Conclusion/Plan: no indication to check TSH continue home LT4 (186mcg daily) (6) Diabetes type 2, uncontrolled Conclusion/Plan: A1C 11.2 Morbid obesity Home regimen 32 bid levemir High dose novolog Plan; will continue bid 32 u lantus in hospital Since w have diet "control" in hospital Will start with prandial 10 u novolog PLUS mod-high correctional Eval SSI coverage needs and readjust as warranted Nutrition consult (7) Morbid obesity Conclusion/Plan: BMI 49.6 long standing obesity -Nutrition eval (8) OWEN (obstructive sleep apnea) Conclusion/Plan: on cpap at home will check if [facility] has CPAP to use here (expect short stay (9) Coronary artery disease Conclusion/Plan: Stable ; no symptoms of ischemia (w/ HFmidrangeEF 40-45% last echo ? not on ASA, continue statin contnue REBEKAH w/ hold parameters, continue BB (and as above if BP/HR permit, change coreg to standard bid dosing on d/c , not clear wy once daily (10) Acute kidney injury superimposed on chronic kidney disease Conclusion/Plan: CKD4 w/ GFR 28 on admit Cr has ~ doubled since 2016, BMP tomorrow after volume repletion continue low doseACEI, (11) DNR (do not resuscitate) Conclusion/Plan: confirmed w/ pt , of note she was full last admit - Lab Results Lab results reviewed: Yes Fish Bones: 10/17/18 07:40 10/17/18 07:40 - Diagnostic Imaging Results Diagnostic Imaging Results Comments: Echocardiogram;08/2018 Mod to severe LVE, Mild concentric LVH, Mild -mod ipared EF 40-45%, (was 50-55% 12/2017 echo) Grade II diastolic dysfunction, No WMA , No , No AR, Tr MR, No TR, RVSP 59 mm Hg (was 38 mm Hg 12/2017
[2018-10-17] MEDS: SODIUM CHLORIDE FLUSH 0.9% 10 ML SYRINGE IVP SCH ×2 (11:38→17:12)
[2018-10-17] MEDS: SODIUM CHLORIDE 0.9% 1,000 ML IV SCH (11:53)
[2018-10-17] MEDS: INSULIN ASPART 300 UNIT/3 ML PEN SUBQ SCH ×5 (12:17→21:55)
[2018-10-17 13:03] LABS: HB2 TOTAL 12.6 g/dL; HEMOGLOBIN A1C 1.24 g/dL; HEMOGLOBIN A1C % 11.2 % (4.6-6.2)
[2018-10-17] MEDS: PARoxetine 10 MG TABLET PO SCH (21:54)
[2018-10-17] MEDS: INSULIN GLARGINE 300 UNIT/3 ML PEN SUBQ SCH (21:58)
[2018-10-18] MEDS: SODIUM CHLORIDE 0.9% 1,000 ML IV SCH (03:38)
[2018-10-18 05:38] LABS: HGB - HEMOGLOBIN 11.8 g/dL (12.0-16.0); MEAN CORPUSCULAR HEMOGLOBIN 29.8 pg (27.0-31.0); MEAN CORPUSCULAR HGB CONC 32.6 g/dL (32.0-36.0); MEAN CORPUSCULAR VOLUME 91.5 fL (81.0-99.0); MEAN PLATELET VOLUME 7.3 fL (7.9-10.8); RED BLOOD COUNT 3.94 10^6/uL (4.20-5.40); RED CELL DISTRIBUTION WIDTH 13.8 % (12.0-15.0); WHITE BLOOD COUNT 12.4 x10^3/uL (4.8-10.8)
[2018-10-18] MEDS: SODIUM CHLORIDE FLUSH 0.9% 10 ML SYRINGE IVP SCH ×3 (05:43→16:58)
[2018-10-18 05:52] LABS: CALCIUM 8.8 mg/dL (8.5-10.3); CREATININE 1.4 mg/dL (0.4-1.0)
[2018-10-18] MEDS: LEVOTHYROXINE 112 MCG TABLET PO SCH (06:23)
[2018-10-18] MEDS: LEVOTHYROXINE 75 MCG TABLET PO SCH (06:23)
[2018-10-18] MEDS: INSULIN ASPART 300 UNIT/3 ML PEN SUBQ SCH ×7 (08:07→21:11)
[2018-10-18] MEDS: INSULIN GLARGINE 300 UNIT/3 ML PEN SUBQ SCH ×2 (08:08→21:12)
[2018-10-18] MEDS ORDERED: LISINOPRIL 5 MG TABLET PO SCH (09:00)
[2018-10-18] MEDS: cefTRIAXone 1 GM in SODIUM CHLORIDE 0.9% MINIBAG 100 ML IV SCH (09:53)
[2018-10-18] MEDS: POLYETHYLENE GLYCOL 3350 17 GM PACKET PO SCH (09:53)
[2018-10-18] MEDS: CARVEDILOL 3.125 MG TABLET PO SCH (09:53)
[2018-10-18] MEDS: ENOXAPARIN 30 MG/0.3 ML SYRINGE SUBQ SCH (09:53)
--- NOTE | 2018-10-18 17:01 | PROVIDER PROGRESS NOTE ---
Subjective - Prog Note Date Prog Note Date: 10/18/18 Prog Note Time: 17:24 - Subjective Pt reports feeling: Improved Subjective: Deni complains of being thirsty much more lately. She states that her knees are sore, but worse on her left since the fall. She denies chest pain, nausea, vomiting, diarrhea, a rash, or a new cough. Current Medications - Current Medications Current Medications: Active Medications: Carvedilol (Coreg) 3.125 mg PO DAILY [facility] Enoxaparin Sodium (Lovenox) 30 mg SUBQ DAILY [facility] Ceftriaxone Sodium 1 gm/ (Sodium Chloride) 100 mls @ 200 mls/hr IV DAILY [facility] Insulin Aspart (Novolog) 3 - 11 unit SUBQ 0800,1200,1700,2100 [facility]; Protocol Insulin Aspart (Novolog) 15 unit SUBQ TIDWM [facility]; Protocol Insulin Glargine (Lantus Solostar) 38 unit SUBQ BID [facility] Levothyroxine Sodium (Synthroid) 75 mcg PO QDAC [facility] Levothyroxine Sodium (Synthroid) 112 mcg PO QDAC [facility] Paroxetine HCl (Paxil) 40 mg PO QPM [facility] Polyethylene Glycol (Miralax) 17 gm PO DAILY [facility] HOME meds: Lovastatin [Altoprev] 40 mg ORAL QPM 06/23/14 Insulin Regular, Human [Novolin R] 0 - 40 units SUBQ TIDWM 06/22/15 PARoxetine [Paxil] 40 mg PO QPM 06/22/15 Carvedilol 3.125 mg PO DAILY 01/29/16 Insulin Detemir [Levemir Flextouch] 32 units SUBQ BID 05/15/17 Furosemide 40 mg PO DAILY 08/23/18 Potassium Chloride [Klor-Con M20] 20 mg PO DAILYWM 08/23/18 hydroCHLOROthiazide [Hydrodiuril] 25 mg PO DAILY 08/23/18 Objective - Vital Signs/Intake & Output Reviewed Vital Signs: Yes Vital Signs: Vital Signs x48h Temp Pulse Resp BP Pulse Ox 10/18/18 15:38 36.9 C 77 20 119/52 L 95 Intake & Output: Intake & Output 10/15/18 10/16/18 10/17/18 10/18/18 23:59 23:59 23:59 23:59 Intake Total 1700 2502.25 Output Total 1800 Balance 1700 702.25 - Objective General Appearance: positive: No acute distress, Alert Eyes Bilateral: positive: PERRL Eyes: OU Conjunctivae pale, OU Lid inflammation ENT: positive: Pharynx nml, Dry mucous membranes Neck: positive: No JVD, Trachea midline, Lymphadenopathy (R), Lymphadenopathy (L) Respiratory: positive: Chest non-tender, No respiratory distress, Other (slight crackles to bilateral low lobes) Cardiovascular: positive: No gallop, Irregularly irregular, Systolic murmur, Decreased pulse(s) Peripheral Pulses: 1+ Radial (R), 1+ Radial (L) Abdomen: positive: Non-tender, Nml bowel sounds, Hepatomegaly, Other (morbid obesity, chronic abdominal distention) Back: positive: Nml inspection Skin: positive: Color nml, No rash, Warm, Dry Extremities: positive: Pedal edema (mild- dependent, discoloration when in the chair, cool), Joint swelling (left knee swelling related to recent fall with abrasion and joint effusion) Neurologic/Psychiatric: positive: Oriented x3, CN's nml (2-12), Motor nml, Sensation nml, Mood/affect nml Reflexes: Bicep (R): 3+, Bicep (L): 3+ - Lab Results Fish Bones: 10/18/18 05:02 10/18/18 05:02 Other Labs: Lab Results x24hrs 10/18/18 10/18/18 Range/Units 05:02 05:02 WBC 12.4 H (4.8-10.8) x10^3/uL RBC 3.94 L (4.20-5.40) 10^6/uL Hgb 11.8 L (12.0-16.0) g/dL Hct 36.1 L (37.0-47.0) % MCV 91.5 (81.0-99.0) fL MCH 29.8 (27.0-31.0) pg MCHC 32.6 (32.0-36.0) g/dL RDW 13.8 (12.0-15.0) % Plt Count 311 (130-450) 10^3/uL MPV 7.3 L (7.9-10.8) fL Sodium 129 L (135-145) mmol/L Potassium 4.4 (3.5-5.0) mmol/L Chloride 94 L (101-111) mmol/L Carbon Dioxide 28 (21-32) mmol/L Anion Gap 7.0 (6-13) BUN 35 H (6-20) mg/dL Creatinine 1.4 H (0.4-1.0) mg/dL Estimated GFR (MDRD) 36 L (>89) Glucose 323 H (70-100) mg/dL Calcium 8.8 (8.5-10.3) mg/dL ABX Reporting Has patient been on IV antibiotics over the past 48 hours?: Yes Sepsis Event Note (H) - Evaluation Current Stage of Sepsis: Sepsis Possible source of Sepsis: positive: Genitourinary - Sepsis Criteria Sepsis Criteria: Respiratory: Increasing oxygen requirements, WBC count greater than 12,000 or less than 4000 Assessment/Plan - Problem List (1) Bacteremia due to Gram-negative bacteria Impression: - 1 0f 2 blood cultures are positive for suspected e. coli - Afebrile today, WBC count still elevated, now 12 - No confusion on exam Plan: Continue to await blood cultures, may change antibiotics based on sensitivities (2) Complicated urinary tract infection Impression: - Gram negative rods in preliminary culture - Nitrites negative on initial UA - Rocephin daily IV Plan: Continue to monitor urinary output, consider Hiprex to be prescribed outpatient to suppress recurrent UTI (3) Acute kidney injury superimposed on chronic kidney disease Impression: - Creatinine 1.4 at baseline - Now 1.5 - Likely caused by uncontrolled DM, obesity, elderly age Plan: Stop gentle fluids, routine labs, resume diuretics in the AM (4) Diabetes type 2, uncontrolled Impression: - A1C is now 11.2%, the highest ever, as compared to previous admissions - Patient describes in detail her daily routine at home, but admits that her eye sight is getting worse - She complains of profound polydypsia, and says she has a bottle of propel at her bedside for during the night as this quenches her thirst - Levimir at home to replace Lantus - Dietary consult; suggests increased meal time dosing, and lantus - 318 this evening before dinner - Patient complains of esophageal stricture that limits her meals Plan: Continue to monitor blood sugars, SSI, mealtime insulin, and BID lantus Qualifiers: Glycemic state: with hyperglycemia Qualified Code(s): E11.65 - Type 2 diabetes mellitus with hyperglycemia (5) HFrEF (heart failure with reduced ejection fraction) Impression: - Last echo shows pulmonary HTN, grade II diastolic dysfunction with global cardiomyopathy and an EF of 45% - Gentle IV fluids continue - Likely intra-vascular depleted given illness - Difficult to assess I/O- pure wick, and weight seems stable - On exam, slight crackles in low lobes - Large abdominal girth at baseline, no JVD, BLE minimal edema (dependent) - Sodium low, likely influenced by glucose and kidney dysfunction - Takes furosemide, spironolactone AND potassium supplement (supplement may be contraindicated, so I will adjust the rogelio dose) Plan: Stop IV fluids tonight, resume diuretics in the AM if kidney function does not worsen Qualifiers: Heart failure chronicity: chronic Qualified Code(s): I50.22 - Chronic systolic (congestive) heart failure (6) Fall Impression: - Likely caused by recurrent UTI, illness leading to profound weakness - Exacerbated by body habitus with super obesity - Denies hitting head, but has obvious left knee abrasion and early effusion Plan: PT to evaluate for SNF, verses home health with PT Qualifiers: Encounter type: initial encounter Qualified Code(s): W19.XXXA - Unspecified fall, initial encounter (7) Super obesity Impression: - BMI 50 - Longstanding obesity due to calorie take exceeding total daily needs, and some genetic components Plan: Daily weights, encourage weight control program upon discharge
[2018-10-18] MEDS: PARoxetine 10 MG TABLET PO SCH (21:10)
[2018-10-19] MEDS: SODIUM CHLORIDE FLUSH 0.9% 10 ML SYRINGE IVP SCH ×3 (00:50→16:54)
[2018-10-19 06:37] LABS: BASOPHILS # (AUTO) 0.1 10^3/uL (0.0-0.1); BASOPHILS % (AUTO) 0.7 %; EOSINOPHILS # (AUTO) 0.2 10^3/uL (0.0-0.7); EOSINOPHILS % (AUTO) 2.5 %; HGB - HEMOGLOBIN 11.1 g/dL (12.0-16.0); LYMPHOCYTES % (AUTO) 23.2 %; MEAN CORPUSCULAR HEMOGLOBIN 29.8 pg (27.0-31.0); MEAN CORPUSCULAR HGB CONC 32.6 g/dL (32.0-36.0); MEAN CORPUSCULAR VOLUME 91.5 fL (81.0-99.0); MEAN PLATELET VOLUME 6.8 fL (7.9-10.8); MONOCYTES # (AUTO) 1.3 10^3/uL (0.0-1.0); MONOCYTES % (AUTO) 14.5 %; NEUTROPHILS # (AUTO) 5.2 10^3/uL (1.5-6.6); NEUTROPHILS % (AUTO) 59.1 %; PLT - PLATELET COUNT 277 10^3/uL (130-450); RED BLOOD COUNT 3.71 10^6/uL (4.20-5.40); RED CELL DISTRIBUTION WIDTH 13.4 % (12.0-15.0); WHITE BLOOD COUNT 8.7 x10^3/uL (4.8-10.8)
[2018-10-19 06:51] LABS: ALBUMIN 3.1 g/dL (3.2-5.5); ALBUMIN/GLOBULIN RATIO 0.9 (1.0-2.2); BILIRUBIN,TOTAL 0.6 mg/dL (0.2-1.0); CREATININE 1.3 mg/dL (0.4-1.0); MAGNESIUM 1.9 mg/dL (1.7-2.8); PHOSPHORUS 2.7 mg/dL (2.5-4.6); TOTAL PROTEIN 6.7 g/dL (6.7-8.2)
[2018-10-19] MEDS: LEVOTHYROXINE 112 MCG TABLET PO SCH (07:00)
[2018-10-19] MEDS: LEVOTHYROXINE 75 MCG TABLET PO SCH (07:00)
[2018-10-19] MEDS: INSULIN ASPART 300 UNIT/3 ML PEN SUBQ SCH ×7 (08:52→20:46)
[2018-10-19] MEDS: cefTRIAXone 1 GM in SODIUM CHLORIDE 0.9% MINIBAG 100 ML IV SCH (08:53)
[2018-10-19] MEDS: CARVEDILOL 3.125 MG TABLET PO SCH (08:53)
[2018-10-19] MEDS: ENOXAPARIN 30 MG/0.3 ML SYRINGE SUBQ SCH (08:55)
[2018-10-19] MEDS: INSULIN GLARGINE 300 UNIT/3 ML PEN SUBQ SCH ×2 (08:55→20:46)
[2018-10-19] MEDS: POLYETHYLENE GLYCOL 3350 17 GM PACKET PO SCH (08:56)
[2018-10-19] MEDS ORDERED: FUROSEMIDE 40 MG TABLET PO SCH (10:00)
[2018-10-19] MEDS: SPIRONOLACTONE 25 MG TABLET PO SCH (11:09)
[2018-10-19] MEDS: FUROSEMIDE 40 MG TABLET PO SCH (11:09)
[2018-10-19] MEDS: LORATADINE 10 MG TABLET PO SCH (16:54)
--- NOTE | 2018-10-19 18:33 | PROVIDER PROGRESS NOTE ---
Subjective - Prog Note Date Prog Note Date: 10/19/18 Prog Note Time: 18:31 - Subjective Pt reports feeling: Improved Subjective: Deni feels much better since being admitted and states that the abrasion on her left knee is not causing her any trouble. She admits that returning home on a Sunday will work for her current caregivers. Current Medications - Current Medications Current Medications: Active Medications: Amoxicillin/Clavulanate Potassium (Augmentin 875/125) 1 tab PO BID [facility] Carvedilol (Coreg) 3.125 mg PO DAILY [facility] Enoxaparin Sodium (Lovenox) 30 mg SUBQ DAILY [facility] Furosemide (Lasix) 40 mg PO DAILY [facility] Insulin Aspart (Novolog) 3 - 11 unit SUBQ 0800,1200,1700,2100 [facility]; Protocol Insulin Aspart (Novolog) 15 unit SUBQ TIDWM [facility]; Protocol Insulin Glargine (Lantus Solostar) 38 unit SUBQ BID [facility] Levothyroxine Sodium (Synthroid) 75 mcg PO QDAC [facility] Levothyroxine Sodium (Synthroid) 112 mcg PO QDAC [facility] Loratadine (Claritin) 10 mg PO DAILY [facility] Paroxetine HCl (Paxil) 40 mg PO QPM [facility] Polyethylene Glycol (Miralax) 17 gm PO DAILY [facility] Spironolactone (Aldactone) 25 mg PO DAILY [facility] HOME meds: Lovastatin [Altoprev] 40 mg ORAL QPM 06/23/14 Insulin Regular, Human [Novolin R] 0 - 40 units SUBQ TIDWM 06/22/15 PARoxetine [Paxil] 40 mg PO QPM 06/22/15 Carvedilol 3.125 mg PO DAILY 01/29/16 Insulin Detemir [Levemir Flextouch] 32 units SUBQ BID 05/15/17 Furosemide 40 mg PO DAILY 08/23/18 Potassium Chloride [Klor-Con M20] 20 mg PO DAILYWM 08/23/18 hydroCHLOROthiazide [Hydrodiuril] 25 mg PO DAILY 08/23/18 Objective - Vital Signs/Intake & Output Reviewed Vital Signs: Yes Vital Signs: Vital Signs x48h Temp Pulse Resp BP Pulse Ox 10/19/18 16:00 36.9 C 76 18 138/51 H 97 Intake & Output: Intake & Output 10/16/18 10/17/18 10/18/18 10/19/18 23:59 23:59 23:59 23:59 Intake Total 1700 4202.25 1080 Output Total 2099 2049 Balance 1700 2102.25 -970 - Objective General Appearance: positive: No acute distress Eyes Bilateral: positive: PERRL Eyes: OU Conjunctivae pale ENT: positive: Pharynx nml, No signs of dehydration Neck: positive: Thyroid nml, No JVD, Trachea midline, Stiff neck Respiratory: positive: Chest non-tender, No respiratory distress, Breath sounds nml, Wheezes Cardiovascular: positive: Regular rate & rhythm, No gallop, Systolic murmur Peripheral Pulses: 1+ Radial (R), 1+ Radial (L) Abdomen: positive: Non-tender, Nml bowel sounds, Other (obese, soft) Back: positive: Nml inspection Skin: positive: No rash, Warm, Dry Extremities: positive: Non-tender, Pedal edema Neurologic/Psychiatric: positive: Oriented x3, CN's nml (2-12), Motor nml, Sensation nml, Weakness, Depressed mood/affect Reflexes: Bicep (R): 3+, Bicep (L): 3+ - Lab Results Fish Bones: 10/19/18 06:29 10/19/18 06:29 Other Labs: Lab Results x24hrs 10/19/18 10/19/18 10/19/18 Range/Units 06:29 06:29 06:29 WBC 8.7 (4.8-10.8) x10^3/uL RBC 3.71 L (4.20-5.40) 10^6/uL Hgb 11.1 L (12.0-16.0) g/dL Hct 33.9 L (37.0-47.0) % MCV 91.5 (81.0-99.0) fL MCH 29.8 (27.0-31.0) pg MCHC 32.6 (32.0-36.0) g/dL RDW 13.4 (12.0-15.0) % Plt Count 277 (130-450) 10^3/uL MPV 6.8 L (7.9-10.8) fL Neut # (Auto) 5.2 (1.5-6.6) 10^3/uL Lymph # (Auto) 2.0 (1.5-3.5) 10^3/uL Bertie # (Auto) 1.3 H (0.0-1.0) 10^3/uL Eos # (Auto) 0.2 (0.0-0.7) 10^3/uL Baso # (Auto) 0.1 (0.0-0.1) 10^3/uL Absolute Nucleated RBC 0.00 x10^3/uL Nucleated RBC % 0.0 /100WBC Sodium 129 L (135-145) mmol/L Potassium 4.5 (3.5-5.0) mmol/L Chloride 91 L (101-111) mmol/L Carbon Dioxide 27 (21-32) mmol/L Anion Gap 11.0 (6-13) BUN 37 H (6-20) mg/dL Creatinine 1.3 H (0.4-1.0) mg/dL Estimated GFR (MDRD) 39 L (>89) Glucose 310 H (70-100) mg/dL Lactic Acid 0.7 (0.5-2.2) mmol/L Calcium 9.0 (8.5-10.3) mg/dL Phosphorus 2.7 (2.5-4.6) mg/dL Magnesium 1.9 (1.7-2.8) mg/dL Total Bilirubin 0.6 (0.2-1.0) mg/dL AST 53 H (10-42) IU/L ALT 53 (10-60) IU/L Alkaline Phosphatase 168 H (42-121) IU/L Total Protein 6.7 (6.7-8.2) g/dL Albumin 3.1 L (3.2-5.5) g/dL Globulin 3.6 (2.1-4.2) g/dL Albumin/Globulin Ratio 0.9 L (1.0-2.2) TSH (0.34-5.60) uIU/mL 10/19/18 Range/Units 06:29 WBC (4.8-10.8) x10^3/uL RBC (4.20-5.40) 10^6/uL Hgb (12.0-16.0) g/dL Hct (37.0-47.0) % MCV (81.0-99.0) fL MCH (27.0-31.0) pg MCHC (32.0-36.0) g/dL RDW (12.0-15.0) % Plt Count (130-450) 10^3/uL MPV (7.9-10.8) fL Neut # (Auto) (1.5-6.6) 10^3/uL Lymph # (Auto) (1.5-3.5) 10^3/uL Bertie # (Auto) (0.0-1.0) 10^3/uL Eos # (Auto) (0.0-0.7) 10^3/uL Baso # (Auto) (0.0-0.1) 10^3/uL Absolute Nucleated RBC x10^3/uL Nucleated RBC % /100WBC Sodium (135-145) mmol/L Potassium (3.5-5.0) mmol/L Chloride (101-111) mmol/L Carbon Dioxide (21-32) mmol/L Anion Gap (6-13) BUN (6-20) mg/dL Creatinine (0.4-1.0) mg/dL Estimated GFR (MDRD) (>89) Glucose (70-100) mg/dL Lactic Acid (0.5-2.2) mmol/L Calcium (8.5-10.3) mg/dL Phosphorus (2.5-4.6) mg/dL Magnesium (1.7-2.8) mg/dL Total Bilirubin (0.2-1.0) mg/dL AST (10-42) IU/L ALT (10-60) IU/L Alkaline Phosphatase (42-121) IU/L Total Protein (6.7-8.2) g/dL Albumin (3.2-5.5) g/dL Globulin (2.1-4.2) g/dL Albumin/Globulin Ratio (1.0-2.2) TSH 3.69 (0.34-5.60) uIU/mL ABX Reporting Has patient been on IV antibiotics over the past 48 hours?: Yes Sepsis Event Note (H) - Evaluation Current Stage of Sepsis: Ruled out Assessment/Plan - Problem List (1) Bacteremia due to Gram-negative bacteria Impression: - 1 0f 2 blood cultures are positive for suspected e. coli - Afebrile today, WBC count normal at 8.7 - No confusion on exam Plan: Continue with oral antibiotic (Augmentin) based on sensitivity list (2) Complicated urinary tract infection Impression: - Gram negative rods in preliminary culture - Sensitivity list shows proper treatment with Augmentin, will need extended coverage since 1 of 2 blood cultures were + - Final shows e. coli - Rocephin daily IV- now stopped Plan: Continue to monitor urinary output, consider Hiprex to be prescribed outpatient to suppress recurrent UTI, continued Augmentin (3) Acute kidney injury superimposed on chronic kidney disease Impression: - Creatinine 1.4 at baseline - Now 1.3 - Likely caused by uncontrolled DM, obesity, elderly age Plan: Continue lasix, routine labs (4) Diabetes type 2, uncontrolled Impression: - A1C is now 11.2%, the highest ever, as compared to previous admissions - Patient describes in detail her daily routine at home, but admits that her eye sight is getting worse - She complains of profound polydypsia, and says she has a bottle of propel at her bedside for during the night as this quenches her thirst - Levimir at home to replace Lantus - Dietary consult; suggests increased meal time dosing, and lantus - 228 this evening before dinner - Patient complains of esophageal stricture that limits her meals Plan: Continue to monitor blood sugars, SSI, mealtime insulin, and BID lantus Qualifiers: Glycemic state: with hyperglycemia Qualified Code(s): E11.65 - Type 2 d iabetes mellitus with hyperglycemia (5) HFrEF (heart failure with reduced ejection fraction) Impression: - Last echo shows pulmonary HTN, grade II diastolic dysfunction with global cardiomyopathy and an EF of 45% - Gentle IV fluids continue - Likely intra-vascular depleted given illness - Difficult to assess I/O- pure wick, and weight seems stable - On exam, slight crackles in low lobes - Large abdominal girth at baseline, no JVD, BLE minimal edema (dependent) - Sodium low, likely influenced by glucose and kidney dysfunction - Takes furosemide, spironolactone AND potassium supplement (supplement may be contraindicated, so I will adjust the rogelio dose) Plan: Continue diuretics, follow weights, I/O and physical exam findings Qualifiers: Heart failure chronicity: chronic Qualified Code(s): I50.22 - Chronic systolic (congestive) heart failure (6) Fall Impression: - Likely caused by recurrent UTI, illness leading to profound weakness - Exacerbated by body habitus with super obesity - Denies hitting head, but has obvious left knee abrasion and early effusion Plan: PT to evaluate for SNF, verses home health with PT Qualifiers: Encounter type: initial encounter Qualified Code(s): W19.XXXA - Unspecified fall, initial encounter (7) Super obesity Impression: - BMI 50 - Longstanding obesity due to calorie take exceeding total daily needs, and some genetic components Plan: Daily weights, encourage weight control program upon discharge
[2018-10-19] MEDS: AMOX/CLAV 875 MG/125 MG TABLET PO SCH (20:45)
[2018-10-19] MEDS: PARoxetine 10 MG TABLET PO SCH (20:45)
[2018-10-20] MEDS: SODIUM CHLORIDE FLUSH 0.9% 10 ML SYRINGE IVP SCH ×2 (00:49→08:19)
[2018-10-20] MEDS: LEVOTHYROXINE 75 MCG TABLET PO SCH (06:22)
[2018-10-20] MEDS: LEVOTHYROXINE 112 MCG TABLET PO SCH (06:22)
[2018-10-20 08:05] VITALS: BP 124/64
[2018-10-20 08:18] LABS: BASOPHILS # (AUTO) 0.1 10^3/uL (0.0-0.1); EOSINOPHILS # (AUTO) 0.3 10^3/uL (0.0-0.7); EOSINOPHILS % (AUTO) 4.4 %; HGB - HEMOGLOBIN 11.2 g/dL (12.0-16.0); LYMPHOCYTES # (AUTO) 1.9 10^3/uL (1.5-3.5); LYMPHOCYTES % (AUTO) 24.7 %; MEAN CORPUSCULAR HEMOGLOBIN 29.8 pg (27.0-31.0); MEAN CORPUSCULAR HGB CONC 33.2 g/dL (32.0-36.0); MEAN CORPUSCULAR VOLUME 89.8 fL (81.0-99.0); MEAN PLATELET VOLUME 7.2 fL (7.9-10.8); MONOCYTES # (AUTO) 1.2 10^3/uL (0.0-1.0); MONOCYTES % (AUTO) 16.1 %; NEUTROPHILS # (AUTO) 4.1 10^3/uL (1.5-6.6); NEUTROPHILS % (AUTO) 53.8 %; PLT - PLATELET COUNT 319 10^3/uL (130-450); RED BLOOD COUNT 3.76 10^6/uL (4.20-5.40); RED CELL DISTRIBUTION WIDTH 13.5 % (12.0-15.0); WHITE BLOOD COUNT 7.6 x10^3/uL (4.8-10.8)
[2018-10-20] MEDS: CARVEDILOL 3.125 MG TABLET PO SCH (08:18)
[2018-10-20] MEDS: AMOX/CLAV 875 MG/125 MG TABLET PO SCH (08:18)
[2018-10-20] MEDS: SPIRONOLACTONE 25 MG TABLET PO SCH (08:18)
[2018-10-20] MEDS: LORATADINE 10 MG TABLET PO SCH (08:18)
[2018-10-20] MEDS: FUROSEMIDE 40 MG TABLET PO SCH (08:18)
[2018-10-20] MEDS: POLYETHYLENE GLYCOL 3350 17 GM PACKET PO SCH (08:19)
[2018-10-20] MEDS: ENOXAPARIN 30 MG/0.3 ML SYRINGE SUBQ SCH (08:19)
[2018-10-20] MEDS: INSULIN GLARGINE 300 UNIT/3 ML PEN SUBQ SCH (08:19)
[2018-10-20] MEDS: INSULIN ASPART 300 UNIT/3 ML PEN SUBQ SCH ×4 (08:20→12:55)
[2018-10-20 08:28] LABS: CALCIUM 9.2 mg/dL (8.5-10.3); CREATININE 0.9 mg/dL (0.4-1.0); MAGNESIUM 2.1 mg/dL (1.7-2.8)
--- NOTE | 2018-10-20 10:10 | Discharge Plan ---
Discharge Plan Disposition: Home, Self Care Condition: Good Prescriptions: Amox/Clav 875/125 [Augmentin 875/125] 1 tab PO BID 21 Days #42 tablet Methenamine Hippurate [Hiprex] 1 gm PO DAILY #30 tablet Saccharomyces Boulardii [Florastor] 250 mg PO BID #60 capsule Diet: Diabetic Activity Restrictions: Activity as Tolerated Shower Restrictions: No Assistance Devices: Wheelchair, Walker Weight Bearing: Full Weight Additional Instructions or Follow Up instructions: You were admitted for a complicated UTI that also was found in your blood. This is more serious and may explain why your diabetes has been harder to manage. You will need antibiotics for a longer period of time (21-days), then switch to a medication called Hiprex (methenamine) for everyday prevention. On your home medication list you were on both potassium AND spironolactone which can be very harmful to your kidneys. Please do not take the potassium, besides they are large to swallow. Also, you should not be taking both hydrochlorothiazide AND spironolactone, so I recommend stopping hydrochlorothiazide. I have adjusted your Levimir to 35 units, twice daily, but your blood sugars should improve as we treat the blood and urine infections. Your TSH level was normal. Your kidney function (creatinine) is normal today, which is likely due too the correct combination of diuretics and by treating the infection. Please see your PCP within 1 week. No Smoking: If you smoke, Please STOP! Call for help. Follow-up with: Chelsey Cao DNP [Primary Care Provider] -
--- NOTE | 2018-10-20 14:03 | DISCHARGE SUMMARY ---
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 coli, continue on Augmentin for an extended period (21-days) Urinary tract infection, site not specified (N39.0) Recurrent, continue Augmentin for both this infection and for bacteremia Type 2 diabetes mellitus with hyperglycemia (E11.65) Increased Levimir dose from 32 units BID to 35 units BID Acute on chronic systolic (congestive) heart failure (I50.23) Stopped Hydroch lorothiazide, stopped potassium supplement. Continue on coreg, spironolactone and furosemide Acute kidney failure, unspecified (N17.9) resolved, creatinine normal today at 0.9 Unspecified fall, initial encounter (W19.XXXA) recurrent, revolves around infections Obesity, unspecified (E66.9) chronic, super-obesity, stable Personal history of urinary (tract) infections (Z87.440) Hiprex to continue a fter this course of Augmentin Dependence on supplemental oxygen (Z99.81) 2L nasal cannula is baseline, stable Hyperlipidemia, unspecified (E78.5) chronic, stable Pulmonary hypertension, unspecified (I27.20) chronic stable, RVSP at rest on echo is worse than last study Obstructive sleep apnea (adult) (pediatric) (G47.33) chronic, stable, continue 2L at home Do not resuscitate (Z66) chronic, stable - HPI History of Present Illness: HPI per Veena Bazzi: Deni Payne is well-known to the hospital and is an 82-year old female who lives at home with another couple and has a past medical history of diabetes mellitus type 2- uncontrolled, HFrEF, OWEN on home oxygen, hypertension, CAD w/ CT. She was brought to the ED via EMS presented with progressive weakness. Was in usual state of health until ~ 2 days ago (gets up and around at home with her 3L chronic nasal cannula), but as of ~ 2 days ago noted exessive thirst, and polyuria , denies dysuria. (clarifies this is not frequency of small amount, but increased volume). Also felt very cold in bed w/ chills. Denies actual fever, no true rigors. Also increasing fatigue to the point she was unable to get out of bed. No shortness of breath, cough, orthopnea, no CP, palpitations, no Nausea, vomiting, Abdominal pain or change in bowel habits , other than unformed BM yesterday and today (once/day). She had to call 911, and they had trouble lifting her. She notes her sugars have also been higher. "usually 225-250" but have been ~ 300 on her regimen of 32 u bid lantus and what she reports to be30 novolog / meal. + occas hypoglycemia ,last ~ 1 month ago w/ glucose 23. In the ED she was afebrile , hemodynamically stable w/ SBP 113/46 , mildy elevated HR 101, no tachypnea CBC notable for leukocytosis WBC 15.4 with no bandemia, CXR no acute finding, UA with significant pyuria, bacturia Chemistries notable for Mild hyponatemia Na 132 BUN/Cr 35/1.5 c/w 23/1.0 3/2 07/30 Lactate 3.1 2018 Baseline Cr appears ~ 1.4 (rarely Cr 1.0 2016 Cr was .6-.9 Cr essentia lly doubled since 2016 1 Liter NS in ED troponin neg - ALLERGIES Allergies/Adverse Reactions: Allergies Allergy/AdvReac Type Severity Reaction Status Date / Time No Known Drug Allergies Allergy Verified 10/17/18 07:29 - MEDICATIONS Home Medications: Ambulatory Orders Medication Instructions Recorded Confirmed Lovastatin [Altoprev] 40 mg ORAL QPM 06/23/14 10/17/18 Insulin Regular, Human [Novolin R] 0 - 40 units SUBQ TIDWM 06/22/15 10/17/18 PARoxetine [Paxil] 40 mg PO QPM 06/22/15 10/17/18 Carvedilol 3.125 mg PO DAILY 01/29/16 10/17/18 Levothyroxine [Synthroid] 75 mcg PO QDAC #30 tablet 12/28/17 10/17/18 Levothyroxine [Synthroid] 112 mcg PO QDAC #30 tablet 12/28/17 10/17/18 Lisinopril 5 mg PO DAILY #30 tablet 12/28/17 10/17/18 Spironolactone [Aldactone] 25 mg PO DAILY #30 tablet 12/28/17 10/17/18 Furosemide 40 mg PO DAILY 08/23/18 10/17/18 Amox/Clav 875/125 [Augmentin 1 tab PO BID 21 Days #42 tablet 10/20/18 875/125] Insulin Detemir [Levemir Flextouch] 35 units SUBQ BID #1 10/20/18 10/17/18 Methenamine Hippurate [Hiprex] 1 gm PO DAILY #30 tablet 10/20/18 Saccharomyces Boulardii [Florastor] 250 mg PO BID #60 capsule 10/20/18 - PHYSICAL EXAM AT DISCHARGE General Appearance: positive: No acute distress, Alert Eyes Bilateral: positive: Normal inspection, PERRL ENT: positive: Pharynx nml, No signs of dehydration Neck: positive: Thyroid nml, No JVD, Trachea midline Respiratory: positive: Chest non-tender, No respiratory distress, Breath sounds nml Cardiovascular: positive: Regular rate & rhythm, No gallop, Systolic murmur, Decreased pulse(s) Peripheral Pulses: positive: 1+ Abdomen: positive: Non-tender, Nml bowel sounds, Other (obese, soft) Back: positive: Nml inspection Skin: positive: Color nml, No rash, Warm, Dry Extremities: positive: Non-tender, Pedal edema (chronic, dependent BLE), Joint swelling Neurologic/Psychiatric: positive: Oriented x3, CN's nml (2-12), Motor nml, Sensation nml, Mood/affect nml, Weakness Reflexes: Bicep (R): 3+, Bicep (L): 3+ - LABS Result Diagrams: 10/20/18 07:45 10/20/18 07:45 - SEPSIS Current Stage of Sepsis: Ruled out Possible source of Sepsis: Genitourinary Sepsis Criteria: Respiratory: Increasing oxygen requirements, WBC count greater than 12,000 or less than 4000 - FOLLOW UP Follow Up: Disposition: 01 Home, Self Care Condition: Good Prescriptions: Amox/Clav 875/125 [Augmentin 875/125] 1 tab PO BID 21 Days #42 tablet Methenamine Hippurate [Hiprex] 1 gm PO DAILY #30 tablet Saccharomyces Boulardii [Florastor] 250 mg PO BID #60 capsule Diet: Diabetic Activity Restrictions: Activity as Tolerated Shower Restrictions: No Assistance Devices: Wheelchair, Walker Weight Bearing: Full Weight Additional Instructions or Follow Up instructions: You were admitted for a complicated UTI that also was found in your blood. This is more serious and may explain why your diabetes has been harder to manage. You will need antibiotics for a longer period of time (21-days), then switch to a medication called Hiprex (methenamine) for everyday prevention. On your home medication list you were on both potassium AND spironolactone which can be very harmful to your kidneys. Please do not take the potassium, besides they are large to swallow. Also, you should not be taking both hydrochlorothiazide AND spironolactone, so I recommend stopping hydrochlorothiazide. I have adjusted your Levimir to 35 units, twice daily, but your blood sugars should improve as we treat the blood and urine infections. Your TSH level was normal. Your kidney function (creatinine) is normal today, which is likely due too the correct combination of diuretics and by treating the infection. Please see your PCP within 1 week. - TIME SPENT Time Spent in Discharge (Minutes): 50
[2018-10-20] MEDS ORDERED: HYDROmorphone 1 MG/ML CARPUJECT ONE (17:28)
== END 2018-10-20 13:27 | disposition home or self-care (01) | DRG 871 ==
LOC: EDUNIT# → ED 07:08 → MS2 10:32
PROVIDERS: ADMIT Nurse Practitioner; ATTEND Nurse Practitioner
DX: N30.00 Acute cystitis without hematuria (principal); E86.0 Dehydration; R78.81 Bacteremia; I11.0 Hypertensive heart disease with heart failure; I50.9 Heart failure, unspecified; E78.00 Pure hypercholesterolemia, unspecified; E11.9 Type 2 diabetes mellitus without complications; I50.23 Acute on chronic systolic (congestive) heart failure; N39.0 Urinary tract infection, site not specified; N17.9 Acute kidney failure, unspecified; E87.1 Hypo-osmolality and hyponatremia; Z68.42 Body mass index [BMI] 45.0-49.9, adult; N18.4 Chronic kidney disease, stage 4 (severe); E11.65 Type 2 diabetes mellitus with hyperglycemia; I13.10 Hypertensive heart and chronic kidney disease without heart failure, with stage 1 through stage 4 chronic kidney disease, or unspecified chronic kidney disease; E11.22 Type 2 diabetes mellitus with diabetic chronic kidney disease; R53.83 Other fatigue; B96.20 Unspecified Escherichia coli [E. coli] as the cause of diseases classified elsewhere; J44.9 Chronic obstructive pulmonary disease, unspecified; G47.33 Obstructive sleep apnea (adult) (pediatric); E03.9 Hypothyroidism, unspecified; I25.10 Atherosclerotic heart disease of native coronary artery without angina pectoris; E78.5 Hyperlipidemia, unspecified; R32 Unspecified urinary incontinence; R35.1 Nocturia; R35.0 Frequency of micturition; F32.9 Major depressive disorder, single episode, unspecified; F41.9 Anxiety disorder, unspecified; J32.9 Chronic sinusitis, unspecified; H91.90 Unspecified hearing loss, unspecified ear; I27.20 Pulmonary hypertension, unspecified; E66.01 Morbid (severe) obesity due to excess calories; S80.212A Abrasion, left knee, initial encounter; W19.XXXA Unspecified fall, initial encounter; M25.562 Pain in left knee; M25.561 Pain in right knee; R29.6 Repeated falls; Z66 Do not resuscitate; Y92.099 Unspecified place in other non-institutional residence as the place of occurrence of the external cause; Z79.4 Long term (current) use of insulin; Z79.899 Other long term (current) drug therapy; I25.2 Old myocardial infarction; Z87.891 Personal history of nicotine dependence; Z91.81 History of falling; Z87.440 Personal history of urinary (tract) infections; Z99.81 Dependence on supplemental oxygen
CPT/HCPCS: 36415; 51701; 71045; 80048; 80053; 81001; 83036; 83605; 83690; 83735; 83880; 84100; 84443; 84484; 85025; 85027; 87040; 87077; 87086; 87181; 96361; 96365; 97161; 97530; 99284; A9270; J1650; J1815; 81003

== ENCOUNTER 2018-11-18 07:43 | Outpatient (CLI) | payer MEDICARE ==
--- NOTE | 2018-11-18 16:05 | CONSULTATION NOTE ---
Palliative Care Consultation - Referral Referring Provider: EMMA Winter Time of Visit: 11/18/2018. Referral setting: Home Referral Reason: Advance care planning - Information Sources Records reviewed: Previous records reviewed History/Review of Systems obtained from: Patient Exam limitations: No limitations - History of Present Illness Brief History of Present Illness: 83-year-old female lives in her home with a couple who provides caregiving. She has a history of multiple serious co-morbidities, including HF, obesity, frequent UTIs, and poorly controlled DMII, with frequent ED visits and hospitalizations. She has been referred to the Palliative Care service to clarify goals of care and advance care planning. Medical History: Pulmonary edema; pulmonary HTN; pulmonary edema; HF with midrange EF (EF 40-45% 08/2018); HTN; CAD; Hx CT; OWEN with CPAP; HLD; COPD oxygen dependent; DM II; morbid obesity; hypothyroidism; depression/anxiety. Patient is mostly homebound due to oxygen dependence, SOA with exertion, and that it is taxing and considerable effort for her to transfer and also transport her motorized scooter in her vehicle. Today she is alert, pleasant, articulate, no mental status changes. She has h/o falling, most recently a few days ago. She has a contusion above L eye as well as a large contusion on left abdomen/panniculus from the fall. Patient has h/o of frequent ED and hospital visits. 10/17/18 she was hospitalized for UTI and volume depletion. She was discharged on Augmentin for 21 days, recently completed. She was also started on methenamnie hippurate 1g daily as a trial prophylaxis She has poorly controlled diabetes type 2. Her insulin Levelmir was increased from 32 units BID to 35 units BID in the hospital. She is also on Novolin R 100 25 units TID, which was decreased from 37 units. She reports her BGs being "all over the place," mostly in the 300s. Most recent HbgA1c was 11.2% 10/17/18. She does not keep a log, we had long discussion and she will start testing BGs 4x day (before meals and in the evenings) and will start to keep a log so insulin can be better managed. She reports bilateral knee pain, and does keep Tylenol and and Aleve on hand as needed. She does sleep a lot, she believes it is from boredom and fear. She denies SOA at rest and at exertion, but does have labored breathing while she demonstrates her ability to transfer from her [id number]-eoflb recliner and to walk a short distance with her 4W walker. She sleeps in her bed at night, not in the recliner. Patient reports some depression and anxiety at certain times of the year, when it's the anniversary of deaths or loss of her loved ones. She reports that the anti-depressant medication she takes helps and does a good job of controlling it. Patient reports drinking ample fluids (drinks 2-3 32oz size water containers daily) since her last hospitalization for UTI the early part of October. Her nurse/friend Prudence consistently encourages her. She continues to take the methenamine hippurate as a UTI prophylaxis. The plan was to monitor if it helps minimize UTIs and continue it if it does. Medical/Surgical History - Past Medical History Cardiovascular: reports: Congestive heart failure, Hypertension, High cholesterol, Coronary artery disease, CT (2017 or 2018) Respiratory: reports: COPD, Shortness of breath, Sleep apnea (patient denies using CPAP or knowing she has OWEN diagnosis), Other (oxygen dependent 2-3L). denies: CPAP use Neuro: reports: Head injury, Tremors Endocrine/Autoimmune: reports: Type 2 diabetes, HyPOthyroidism GI: reports: None ROAD PRODUCTION GENERAL MANAGER: reports: Other : reports: Nocturia, Frequency. denies: Incontinence (patient denies) HEENT: reports: Chronic sinusitis, Chronic hearing loss Psych: reports: Depression, Anxiety Musculoskeletal: reports: Fatigue Derm: reports: Other drug resistant infections MRSA Hx?: Yes - Past Surgical History /ROAD PRODUCTION GENERAL MANAGER: reports: Hysterectomy HEENT: reports: Cataracts, Tonsil/Adenoidectomy - Substance History Use: Uses substance without health or social issues: NONE Tobacco Details: Cigarettes (Former smoker 1.5 packs x 30 years = 45 pack years. Quit age 54. Denies alcohol, recreational drug use.) Social History - Living Situation Living arrangement: At home Living Situation: With caregiver(s) Support System: Patient lives in her own home with a couple who provides caregiving and help around the house and property. Her in 1989. He had a CVA 17 years previously and she provided caregiving for him for those 17 years. She also took care of her mother and father before their deaths. She had 6 children, 3 of whom are , as adults. Her living adult children are Ray, who used to live with her, and who is now is in a nursing facility in [place]. Daughter Kellie Laird [phone] and son Jed live in [facility]. Marcelle Roque [phone] ([phone] is a friend who is a nurse. She checks on the patient every Sunday. Vandana Henry [phone] lives on the patient's property and provides caregiving and other help, along with her . Patient does not currently have a DPOA assigned. She is working on it. Family History - Family History Family History Comment/Other: Father in his mid 40s of a pulmonary embolism following knee surgery. Mother age 82-84 of Alzheimer's. Sister of a cerebral aneurysm. 3 of her 6 children as adults: lung cancer, Down's syndrome, overdose. Medications/Allergies - Medications Home Medications: Ambulatory Orders Medication Instructions Recorded Confirmed Lovastatin [Altoprev] 40 mg ORAL QPM 06/23/14 11/18/18 Insulin Regular, Human [Novolin R] 0 - 40 units SUBQ TIDWM 06/22/15 11/18/18 PARoxetine [Paxil] 40 mg PO QPM 06/22/15 11/18/18 Carvedilol 3.125 mg PO DAILY 01/29/16 11/18/18 Levothyroxine [Synthroid] 75 mcg PO QDAC #30 tablet 12/28/17 11/18/18 Levothyroxine [Synthroid] 112 mcg PO QDAC #30 tablet 12/28/17 11/18/18 Lisinopril 5 mg PO DAILY #30 tablet 12/28/17 11/18/18 Spironolactone [Aldactone] 25 mg PO DAILY #30 tablet 12/28/17 11/18/18 Furosemide 40 mg PO DAILY 08/23/18 11/18/18 Insulin Detemir [Levemir Flextouch] 35 units SUBQ BID #1 10/20/18 11/18/18 Methenamine Hippurate [Hiprex] 1 gm PO DAILY #30 tablet 10/20/18 11/18/18 Levalbuterol [Xopenex] 3 ml INH QID PRN 11/18/18 11/18/18 Similisan Allergy Eye Relief 1 drops EACHEYE BID PRN MDD 11/18/18 homeopathic - Allergies Allergies/Adverse Reactions: Allergies Allergy/AdvReac Type Severity Reaction Status Date / Time No Known Drug Allergies Allergy Verified 10/17/18 07:29 Review of Systems - Constitutional Constitutional: reports: Fatigue (sleeps a lot), Weight stable (332 lbs (151kg, 50.6 BMI) 10/17/18. Her weight has fluctuated between 145-151 kg for the past year.). denies: Chills, Poor appetite - Eyes Eyes: reports: Other (dry, itchy eyes, uses a homeopathic eye drop) - Ears, Nose & Throat Ears, Nose & Throat: denies: Hearing loss, Hearing aids - Cardiovascular Cardiovascular: reports: Exertional dyspnea, Decr. exercise tolerance. denies: Chest pain, Edema - Respiratory Respiratory: reports: SOB with exertion, Other (difficulty breathing when lying down) - Gastrointestinal Gastrointestinal: reports: Good appetite. denies: Constipation, Nausea, Vomiting, Poor appetite - Genitourinary Genitourinary: reports: Nocturia. denies: Incontinence - Musculoskeletal Musculoskeletal: reports: Joint pain (both knees, uses occasional Tylenol or Aleve), Assistive devices (walker and motorized scooter), Transfer issues (uses a [id number] recliner), Other (mostly housebound due to difficulty transferring into cars and bringing motorized scooter) - Integumentary Integumentary: denies: Rash - Psychiatric Psychiatric: reports: Depression (sadness around anniversaries of losses, deaths) - Hematologic/Lymphatic Hematologic/Lymphatic: reports: Bruising (L eye, L flank/abdomen due to trauma (fall)), Recurrent infections (UTIs) Physical Exam - Vital Signs Temperature: 96.1 F Pulse Rate: 77 O2 Saturation: 93 (2L O2 via NC) Blood Pressure: 118/68 (wrist cuff) - Physical Exam General Appearance: positive: No acute distress, Alert Eyes Bilateral: positive: Normal inspection, Other (contusion superior L eye socket, trauma (fall)) ENT: positive: No signs of dehydration Neck: positive: Trachea midline Cardiovascular: positive: Regular rate & rhythm, No murmur Respiratory: positive: Chest non-tender, No respiratory distress, Diminished throughout (difficult to ausculate due to body habitus) Abdomen: positive: Abnml bowel sounds (hypoactive bowel sounds, difficulty to ausculate due to body habitus), Obese Skin: positive: No symptoms, Bruising (contusions on L superior eye socket and L flank/abdomen from fall against table in living room). negative: Rash (no signs of fungal rash under panniculi of abdomen; patient reports having Nystain powder available, from one of her hospitalizations) Extremities: positive: Nml appearance, No pedal edema Neurologic/Psychiatric: positive: Oriented x3, Mood/affect nml Palliative Care - POLST Patient has POLST: Yes POLST Status: DNR, Selective Treatment Pain: Pain unchanged, Location (knees) Tiredness/Fatigue: Moderate (4-6) Nausea: None Depression: Mild (1-3) (associated with anniversaries of loss, ) Anxiety: Mild (1-3) Dyspnea: Moderate (4-6) (with exertion) Anorexia: None Sleep: Other (denies insomnia) Constipation: No Performance Status: oxygen dependent, 2-3L via NC. transfer issues; uses [id number]-wb-msrye recliner. sleeps at night in her bed, not in recliner. takes care of own ADLs but live-in caregiver is cooking meals and doing a lot of the leg work. ambulatory with walker; also has a motorized scooter. becoming housebound due to difficulty transferring and SOA with exertion. denies incontinence. commode is next to recliner in living room. - Palliative Care Discussion: Her main concern today is the difficulty of leaving her house to go to the Primary Care clinic. She is concerned about her BGs, she says they have been in the 300s. She takes her own BGs readings, it is unclear how consistent or often she has been doing these. We discussed keeping a log and checking BGs 4x/day: before meals and in the evening. She agreed to that. She has been hypoglycemic in the past, down to 23, so we had a long discussion of what signs to be aware of when her BGs are low, and always keeping candy/orange juice near at hand. Long discussion regarding goals of care. She reports having a POLST already, but it's at the hospital (it's not in [employer]). We reviewed her goals and filled out a new POLST. She definitely would not want to be resuscitated. She states "if there's one place I don't want to be, it's the hospital," but she nonetheless wants transfer to ED/hospital for reversible conditions. She does not currently have a Health (or Financial) DPOA assigned. We discussed the importance of having a trusted person who can make decisions if she is unable to, and garage door technician provided a blank DPOA Health Form, explaining how to get it witnessed or notarized. Patient is going to consider what she wants, speak to her family and friends to clarify her wishes and to avoid difficulties or uncertainty for her family. She thinks she will likely ask either daughter Flory or friend/nurse Prudence. She can have two DPOAs or a first DPOA with an alternate DPOA. Also discussed that the [place] clinic has just closed, and her current PCP is leaving at the end of the month, so she needs to get a new Primary Care Provider, did confirm that a PCP is required in order for the patient to continue to receive Palliative Care services. She agreed to follow up with the clinic, will try to call them this afternoon. Results - Lab Results Lab results reviewed: Yes Lab and Imaging Results: 10/20/18 Na 133 L K+ 4.5 Ch 91 L CO2 31 BUN 27 H Cr 0.9 GFR 60 L Gluc 227 H A1c 11.2% 10/17/18 Impression and Recommendations - Palliative Care Impression: 83-year-old female lives in her home with assistance from a couple who provides caregiving. She has a history of multiple serious co-morbidities, including HF, obesity, frequent UTIs, and poorly controlled DMII, with frequent ED visits and hospitalizations. She could benefit from Palliative Care support to clarify goals of care and advance care planning. Recommendations/Counseling Done: Heart failure with midrange EF: Stable, no edema, SOA controlled with continuous oxygen. Continue furosemide spironolactone, lisinopril and carvedilol. Diabetes mellitus II, uncontrolled: Patient currently on Levemir 35 units BID and Novolin R 100 25 units TID before meals, previously it was 37 units TID, unclear why it was decreased. Counselled the patient to start a blood glucose log 4x day (meals and evening). She reports they're in the 300s but it's unclear how consistent or frequently she has been testing. Most recent A1c was 11.2% on 10/17/18. Will follow up with pull worker at [facility] and with her current PCP as well. Depression: Patient admits periods of sadness, mainly around anniversaries of deaths and loss (she has lost 3 adult children, and her ). She feels that paroxetine helps control her depression. She does report sleeping a lot, out of boredom and fear. Will suggest PHYTOCHEMISTRY PROFESSOR consultation for patient at next visit. Advance care planning: Patient's POLST is at hospital; however, there is no record of it in [employer]. Discussed the goals of care. Although she would like to avoid hospital, she does want transfer to hospital for reversible and treatable conditions. So POLST is DNR, selective treatment, comfort antibiotics, no tube feeding. She does not currently have a DPOA, and plans to discuss her wishes and goals with her family to avoid emotions or conflict in the future. She will choose a DPOA(s). EMMA left a Health DPOA form with the patient, with explanation. Long discussion with patient to explain that Palliative Care is a consult service, does not replace her primary care provider, and to continue to receive Palliative Care services the patient must have a PCP. So she will need to work the with clinic to get a new PCP since EMMA Cao leaves at the end of the month. Patient agreed to follow up with the clinic. Follow up with Signals Collection Technician at the [facility] regarding patient's BG levels, sliding scale used at [facility]. Time Spent: 90 minutes were spent with more than 50% of the time spent on counseling, education, providing anticipatory guidance, and coordination of care.
== END 2018-11-18 07:44 | disposition home or self-care (01) ==
LOC: PC 07:43
PROVIDERS: ATTEND Nurse Practitioner
DX: Z51.5 Encounter for palliative care (principal); I11.0 Hypertensive heart disease with heart failure; I50.22 Chronic systolic (congestive) heart failure; E11.65 Type 2 diabetes mellitus with hyperglycemia; F32.9 Major depressive disorder, single episode, unspecified; E66.01 Morbid (severe) obesity due to excess calories; I27.20 Pulmonary hypertension, unspecified; G47.33 Obstructive sleep apnea (adult) (pediatric); S00.12XA Contusion of left eyelid and periocular area, initial encounter; S30.1XXA Contusion of abdominal wall, initial encounter; W08.XXXA Fall from other furniture, initial encounter; Y92.008 Other place in unspecified non-institutional (private) residence as the place of occurrence of the external cause; M25.562 Pain in left knee; M25.561 Pain in right knee; F41.9 Anxiety disorder, unspecified; J44.9 Chronic obstructive pulmonary disease, unspecified; I25.2 Old myocardial infarction; Z79.899 Other long term (current) drug therapy; Z99.81 Dependence on supplemental oxygen; Z91.81 History of falling; Z87.440 Personal history of urinary (tract) infections; Z79.4 Long term (current) use of insulin; Z79.2 Long term (current) use of antibiotics; Z86.14 Personal history of Methicillin resistant Staphylococcus aureus infection; Z87.891 Personal history of nicotine dependence; Z66 Do not resuscitate; Z68.43 Body mass index [BMI] 50.0-59.9, adult
CPT/HCPCS: 99345

== ENCOUNTER 2018-12-20 21:17 | Outpatient (CLI) | payer MEDICARE | END 2018-12-20 21:18 | disposition critical access hospital (66) | LOC: EMS 21:17 | PROVIDERS: ATTEND Surgery | DX: R53.1 Weakness (principal); R11.0 Nausea; R73.09 Other abnormal glucose | CPT/HCPCS: A0425; A0427 ==

== ENCOUNTER 2018-12-20 21:50 | Inpatient (IN) | payer MEDICARE, MEDICAID ==
--- NOTE | 2018-12-20 21:54 | ED Physician Documentation ---
PD HPI ABD PAIN - Stated complaint Stated Complaint: WEAKNESS, ABD RASH - History obtained from History obtained from: Patient - History of Present Illness Timing - onset: Yesterday Timing - duration: Days (1) Timing - details: Gradual onset Quality: Pain Location: RUQ (On the skin surface.) Improved by: Other (Nothing) Worsened by: Other (Nothing) Associated symptoms: Fever, Nausea, Loss of appetite. No: Vomiting, Diarrhea, Dysuria, Hematuria, Chest pain, Dizzy, Near syncope / syncope Similar symptoms before: Has not had sx before Recently seen: Not recently seen - Additional information Additional information: This is an 83-year-old woman who presents with complaints that she is very weak in her left knee is hurting. She also has an abdominal region that is very red and tender. Patient lives with a caregiver and today was too weak really to get up. Her blood sugar was in the 400s this morning according to her machine. She was unable to eat today except for some toast this morning because she did just did not have much of an appetite and was feeling nauseous. No vomiting. Denies any diarrhea. Patient denies chest pain, palpitations, shortness of breath or asthma. She does wear home oxygen due to heart related condition she has had an DC in the past. She denies fever at home but her temperature per EMS was 99. Patient denies falling or having a headache. She just recently finished an antibiotic about 2 weeks ago for urinary tract infection which she gets frequently. Patient does inject insulin but denies injecting in the region of her abdomen where the redness and swelling is. Review of Systems Constitutional: reports: Fever (99), Fatigue Eyes: denies: Loss of vision Ears: denies: Ear pain Nose: denies: Congestion Throat: denies: Sore throat Cardiac: denies: Chest pain / pressure, Palpitations Respiratory: denies: Dyspnea, Cough GI: reports: Abdominal Pain (The right upper quadrant at the site of the rash), Nausea. denies: Vomiting, Constipation, Diarrhea : denies: Dysuria, Frequency Skin: reports: Rash (Right abdominal wall) Musculoskeletal: reports: Joint pain (Left knee chronic pain but it is much worse today than normal.) Neurologic: reports: Generalized weakness. 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, Frequency HEENT: Chronic sinusitis, Chronic hearing loss Psych: Depression, Anxiety Musculoskeletal: Fatigue Derm: Other drug resistant infections - Past Surgical History Past Surgical History: 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: Hysterectomy HEENT: Cataracts, Tonsil/Adenoidectomy - Present Medications Home Medications: Ambulatory Orders Medication Instructions Recorded Confirmed Lovastatin [Altoprev] 40 mg ORAL QPM 06/23/14 12/20/18 Insulin Regular, Human [Novolin R] 28 units SUBQ TIDWM 06/22/15 12/20/18 PARoxetine [Paxil] 40 mg PO QPM 06/22/15 12/20/18 Carvedilol 3.125 mg PO DAILY 01/29/16 12/20/18 Levothyroxine [Synthroid] 75 mcg PO QDAC #30 tablet 12/28/17 12/20/18 Levothyroxine [Synthroid] 112 mcg PO QDAC #30 tablet 12/28/17 12/20/18 Lisinopril 5 mg PO DAILY #30 tablet 12/28/17 12/20/18 Spironolactone [Aldactone] 25 mg PO DAILY #30 tablet 12/28/17 12/20/18 Furosemide 40 mg PO DAILY 08/23/18 12/20/18 Levalbuterol [Xopenex] 3 ml INH QID PRN 11/18/18 11/18/18 Ascorbic Acid [Vitamin C] 1,000 mg PO 12/20/18 Aspirin [Aspirin EC] 81 mg PO DAILY 12/20/18 12/20/18 C,E,Zinc,Copper 11/Pyjuj6y/Lut 1 each PO DAILY 12/20/18 12/20/18 [Ocuvite Adult 50 Plus Softgel] Calcium Carbonate [Calcium] 500 mg PO DAILY 12/20/18 12/20/18 Cholecalciferol (Vitamin D3) 1,000 unit PO DAILY 12/20/18 12/20/18 [Vitamin D3] Garlic 1,000 mg PO DAILY 12/20/18 12/20/18 Insulin Detemir [Levemir Flextouch] 37 units SUBQ BID 12/20/18 12/20/18 Loratadine 10 mg PO DAILY 12/20/18 12/20/18 Multivitamin [Multivitamins] 1 each PO DAILY 12/20/18 12/20/18 - Allergies Allergies/Adverse Reactions: Allergies Allergy/AdvReac Type Severity Reaction Status Date / Time No Known Drug Allergies Allergy Verified 12/20/18 22:03 - Social History Does the pt smoke?: No Smoking Status: Former smoker Does the pt drink ETOH?: No Does the pt have substance abuse?: No - Immunizations Immunizations are current?: Yes - POLST Patient has POLST: Yes POLST Status: Full Code PD ED PE NORMAL - Vitals Vital signs reviewed: Yes - General General: Alert and oriented X 3, No acute distress, Other (Obese 83-year-old woman who is sitting with an emesis bag. She appears dyspneic.) - HEENT HEENT: PERRL, Other (Dry mucous membranes. No scleral icterus.) - Neck Neck: No adenopathy, No JVD - Cardiac Cardiac: No murmur, Other (Mild tachycardia) - Respiratory Respiratory: Other (She is tachypneic on 2 L of O2 by nasal cannula. Breath sounds are diminished she is unable to leave forward for me to listen in the back.) - Abdomen Abdomen: Normal bowel sounds, Other (Exam is limited by body habitus. Does not appear tender.) - Derm Derm: Warm and dry, Other (There is an area of erythema and indurationIn the right upper quadrant that measures several centimeters in diameter. There is an area that is a little more firm and indurated than the surrounding erythema. No definite fluctuance.) - Extremities Extremities: No edema, Other (Complains of pain in the left knee. 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, Normal speech, Other (No gross neurological deficit.) - Psych Psych: Normal mood, Normal affect Results - Vitals Vitals: Vital Signs - 24 hr 12/20/18 12/20/18 12/20/18 22:00 22:03 22:30 Temperature 37.7 C H Heart Rate 100 101 H 98 Respiratory 20 22 Rate Blood Pressure 173/74 H 168/72 H O2 Saturation 93 94 12/20/18 12/21/18 23:30 00:54 Temperature 37.4 C Heart Rate 96 96 Respiratory 16 22 Rate Blood Pressure 189/73 H 177/82 H O2 Saturation 96 2 L Oxygen O2 Source [Without Activity] Nasal cannula O2 Source Nasal cannula Oxygen Flow Rate 2 - Labs Labs: Laboratory Tests 12/20/18 12/20/18 12/20/18 22:20 22:20 22:20 WBC 17.9 H RBC 4.09 L Hgb 12.0 Hct 38.5 MCV 94.1 MCH 29.3 MCHC 31.2 L RDW 12.7 Plt Count 288 MPV 9.1 Neut # (Auto) Not Reportable Lymph # (Auto) Not Reportable [place] # (Auto) Not Reportable Eos # (Auto) Not Reportable Baso # (Auto) Not Reportable Absolute Nucleated RBC Not Reportable Total Counted 100 Band Neuts % (Manual) 12 H Abnorm Lymph % (Manual) 0 Nucleated RBC % Not Reportable Neutrophils # (Manual) 14.1 H Lymphocytes # (Manual) 2.3 Monocytes # (Manual) 1.4 H Eosinophils # (Manual) 0.0 Basophils # (Manual) 0.0 Differential Comment MANUAL DIFFERENTIAL Manual Slide Review Indicated WBC Morphology NORMAL APPEARANCE Platelet Estimate NORMAL (130-450,000) Platelet Morphology NORMAL APPEARANCE RBC Morph Micro Appear NORMAL APPEARANCE Sodium 130 L Potassium 4.9 Chloride 86 L Carbon Dioxide 29 Anion Gap 15.0 H BUN 20 Creatinine 0.9 Estimated GFR (MDRD) 60 L Glucose 428 H Lactic Acid 1.4 Calcium 9.6 Total Bilirubin 1.4 H AST 53 H ALT 51 Alkaline Phosphatase 128 H Total Protein 7.4 Albumin 3.7 Globulin 3.7 Albumin/Globulin Ratio 1.0 Lipase 30 Urine Color Urine Clarity Urine pH Ur Specific [place] Urine Protein Urine Glucose (UA) Urine Ketones Urine Occult Blood Urine Nitrite Urine Bilirubin Urine Urobilinogen Ur Leukocyte Esterase Ur Microscopic Review Urine Culture Comments Serum Ketones SMALL H 12/20/18 22:47 WBC RBC Hgb Hct MCV MCH MCHC RDW Plt Count MPV Neut # (Auto) Lymph # (Auto) [place] # (Auto) Eos # (Auto) Baso # (Auto) Absolute Nucleated RBC Total Counted Band Neuts % (Manual) Abnorm Lymph % (Manual) Nucleated RBC % Neutrophils # (Manual) Lymphocytes # (Manual) Monocytes # (Manual) Eosinophils # (Manual) Basophils # (Manual) Differential Comment Manual Slide Review WBC Morphology Platelet Estimate Platelet Morphology RBC Morph Micro Appear Sodium Potassium Chloride Carbon Dioxide Anion Gap BUN Creatinine Estimated GFR (MDRD) Glucose Lactic Acid Calcium Total Bilirubin AST ALT Alkaline Phosphatase Total Protein Albumin Globulin Albumin/Globulin Ratio Lipase Urine Color YELLOW Urine Clarity CLEAR Urine pH 5.5 Ur Specific [place] 1.010 Urine Protein NEGATIVE Urine Glucose (UA) >=1000 H Urine Ketones 15 H Urine Occult Blood TRACE-LYSE Urine Nitrite NEGATIVE Urine Bilirubin NEGATIVE Urine Urobilinogen 0.2 (NORMAL) Ur Leukocyte Esterase NEGATIVE Ur Microscopic Review NOT INDICATED Urine Culture Comments NOT INDICATED Serum Ketones PD MEDICAL DECISION MAKING - ED course Complexity details: reviewed results, re-evaluated patient, d/w patient ED course: Patient has a low-grade fever. She was complaining of a headache but felt better after she ate. Her white count 17.9. Sodium was low at 130. Her blood glucose was 400. Serum ketones were small. Lactic was normal at 1.4. She was given a liter of saline, 10 units of subcu regular insulin and I medicated her with Ancef and Vanco. She may have a developing abscess in the abdominal wall b ut I do not feel definite fluctuance to drain it here. I have discussed with the hospitalist and he is agreed to accept her for admission. Departure - Departure Disposition: [facility] DC/Xfer Clinical Impression: Hyperglycemia Cellulitis Qualifiers: Site of cellulitis: trunk Site of cellulitis of trunk: abdominal wall Qualified Code(s): L03.311 - Cellulitis of abdominal wall Condition: Good
[2018-12-20] MEDS ORDERED: SODIUM CHLORIDE 0.9% 1,000 ML IV ONE (22:10)
[2018-12-20] MEDS ORDERED: ceFAZolin 1 GM in SODIUM CHLORIDE 0.9% MINIBAG 100 ML IV STA (22:11)
[2018-12-20] MEDS ORDERED: VANCOMYCIN INJ 1 GM in SODIUM CHLORIDE 0.9% 500 ML IV STA (22:11)
[2018-12-20] MEDS ORDERED: ceFAZolin 1 GM VIAL ONE (22:29)
[2018-12-20 22:32] LABS: BASOPHILS % (AUTO) 0.3 %; EOSINOPHILS % (AUTO) 0.1 %; LYMPHOCYTES % (AUTO) 8.8 %; MEAN CORPUSCULAR HEMOGLOBIN 29.3 pg (27.0-31.0); MEAN CORPUSCULAR HGB CONC 31.2 g/dL (32.0-36.0); MEAN CORPUSCULAR VOLUME 94.1 fL (81.0-99.0); MEAN PLATELET VOLUME 9.1 fL (7.9-10.8); MONOCYTES % (AUTO) 12.2 %; NEUTROPHILS % (AUTO) 77.9 %; PLT - PLATELET COUNT 288 10^3/uL (130-450); RED BLOOD COUNT 4.09 10^6/uL (4.20-5.40); RED CELL DISTRIBUTION WIDTH 12.7 % (12.0-15.0); WHITE BLOOD COUNT 17.9 x10^3/uL (4.8-10.8)
[2018-12-20 22:36] LABS: ABNORMAL LYMPHS % (MANUAL) 0 %; KETONES, SERUM (ACETEST) SMALL (NEGATIVE)
[2018-12-20 22:39] LABS: ALBUMIN 3.7 g/dL (3.2-5.5); ALKALINE PHOSPHATASE 128 IU/L (42-121); ALT ALANINE AMINOTRANSFERASE 51 IU/L (10-60); AST ASPARTATE AMINOTRANSFERASE 53 IU/L (10-42); BILIRUBIN,TOTAL 1.4 mg/dL (0.2-1.0); BUN - BLOOD UREA NITROGEN 20 mg/dL (6-20); CALCIUM 9.6 mg/dL (8.5-10.3); CARBON DIOXIDE - CO2 29 mmol/L (21-32); CHLORIDE 86 mmol/L (101-111); CREATININE 0.9 mg/dL (0.4-1.0); GFR - MDRD 60 (>89); GLUCOSE 428 mg/dL (70-100); LIPASE 30 U/L (22-51); SODIUM 130 mmol/L (135-145); TOTAL PROTEIN 7.4 g/dL (6.7-8.2)
[2018-12-20 22:53] LABS: BAND NEUTROPHILS % (MANUAL) 12 %; DIFFERENTIAL COMMENT MANUAL DIFFERENTIAL; LYMPHOCYTES # (MANUAL) 2.3 10^3/uL (1.5-3.5); LYMPHOCYTES % (MANUAL) 13 %; MONOCYTES # (MANUAL) 1.4 10^3/uL (0.0-1.0); PLATELET ESTIMATE, MANUAL NORMAL (130-450,000) (NORMAL); PLATELET MORPHOLOGY NORMAL APPEARANCE (NORMAL); RBC MORPHOLOGY (MULTIPLE) NORMAL APPEARANCE (NORMAL)
[2018-12-20 22:56] LABS: BILIRUBIN,URINE NEGATIVE (NEGATIVE); CLARITY,URINE CLEAR (CLEAR); GLUCOSE, URINE (UA) >=1000 mg/dL (NEGATIVE); KETONES,URINE (UA) 15 mg/dL (NEGATIVE); LEUKOCYTE ESTERASE, URINE NEGATIVE (NEGATIVE); NITRITE,URINE NEGATIVE (NEGATIVE); OCCULT BLOOD,URINE TRACE-LYSE (NEGATIVE); PH,URINE 5.5 PH (5.0-7.5); PROTEIN,URINE NEGATIVE (NEGATIVE); UROBILINOGEN,URINE 0.2 (NORMAL) E.U./dL (NORMAL)
--- NOTE | 2018-12-20 22:56 | XRAY Report ---
Reason: chest pain Procedure Date: 12/20/2018 Accession Number: [id number] / [id number] Procedure: XR - Chest 1 View X-Ray CPT Code: 48972 FULL RESULT: EXAM: CHEST RADIOGRAPHY EXAM DATE: 12/20/2018 10:34 PM. CLINICAL HISTORY: Chest pain. COMPARISON: CHEST 1 VIEW 10/17/2018 8:13 AM ABDOMEN/PELVIS W/ 08/30/2018 8:47 AM. TECHNIQUE: 1 view. FINDINGS: Lungs/Pleura: Mildly low volumes. No definite pneumonia or edema. No gross pneumothorax or large effusion. Mediastinum: Normal heart size. Stable tortuous and calcified thoracic aorta contour. No mediastinal shift. Other: None. IMPRESSION: Mildly hypoventilatory single view chest without definite acute process. RADIA
[2018-12-20] MEDS ORDERED: INSULIN REGULAR HUMAN 100 UNIT/1 ML 10 ML MDV SUBQ STA (23:55)
[2018-12-21] MEDS ORDERED: VANCOMYCIN PER PHARMACY 2 GM in SODIUM CHLORIDE 0.9% 250 ML IV STA (01:50)
[2018-12-21] MEDS ORDERED: SODIUM CHLORIDE 0.9% 1,000 ML IV ONE (01:56)
[2018-12-21] MEDS ORDERED: ONDANSETRON 4 MG/2 ML VIAL IVP STA (02:22)
[2018-12-21] MEDS ORDERED: ONDANSETRON 4 MG/2 ML VIAL ONE (02:27)
--- NOTE | 2018-12-21 02:30 | HISTORY & PHYSICAL EXAMINATION ---
Chief Complaint - Chief Complaint Chief Complaint: Abdominal wound History of Present Illness - Admitted From Admitted From:: Home - History Obtained From Records Reviewed: Yes History obtained from: Patient, Caregiver - History of Present Illness HPI Comment/Other: This is a pleasant 83 year old female with a past medical history significant for insulin dependent diabetes, HFrEF, and obesity who presents from home complaining of a wound over her right abdomen. She states she noticed the area was erythematous about two days ago but yesterday the area became larger. She reports mild tenderness there. Her caregiver is concerned it may be a spider bite. The patient reports subjective fevers and generalized weakness. She states her blood sugars have also been elevated over the last few days despite taking her insulin. She reports poor oral intake, nausea, and increased urinary frequency. She denies dysuria or urgency. She tells me that she has had DKA in the past. In the emergency department, she was found to have low grade fevers and tachycardia. Her labs were concerning for leukocytosis with bands present. Her blood glucose was also >400. She given IV fluids along with Vancomycin and Cefazolin. I did speak with the patient and her caregiver regarding goals of care. She has a POLST that states she is DNR and only wants limited inter ventions. She states that continues to be her wishes. 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 The patient had a daughter with Down syndrome who recently at age 59, and denies any history of cancer or heart disease in the family. Her sister of a cerebral aneurysm. 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 Currently lives with her caregivers. Quit smoking back in the s. Approximately 45 pack year smoking history. - Substance History Use: Uses substance without health or social issues: NONE - POLST Patient has POLST: Yes POLST Status: DNR Meds/Allgy - Home Medications Home Medications: Ambulatory Orders Medication Instructions Recorded Confirmed Lovastatin [Altoprev] 40 mg ORAL QPM 06/23/14 12/20/18 Insulin Regular, Human [Novolin R] 28 units SUBQ TIDWM 06/22/15 12/20/18 PARoxetine [Paxil] 40 mg PO QPM 06/22/15 12/20/18 Carvedilol 3.125 mg PO DAILY 01/29/16 12/20/18 Levothyroxine [Synthroid] 75 mcg PO QDAC #30 tablet 12/28/17 12/20/18 Levothyroxine [Synthroid] 112 mcg PO QDAC #30 tablet 12/28/17 12/20/18 Lisinopril 5 mg PO DAILY #30 tablet 12/28/17 12/20/18 Spironolactone [Aldactone] 25 mg PO DAILY #30 tablet 12/28/17 12/20/18 Furosemide 40 mg PO DAILY 08/23/18 12/20/18 Levalbuterol [Xopenex] 3 ml INH QID PRN 11/18/18 11/18/18 Ascorbic Acid [Vitamin C] 1,000 mg PO 12/20/18 Aspirin [Aspirin EC] 81 mg PO DAILY 12/20/18 12/20/18 C,E,Zinc,Copper 11/Jwhxs7i/Lut 1 each PO DAILY 12/20/18 12/20/18 [Ocuvite Adult 50 Plus Softgel] Calcium Carbonate [Calcium] 500 mg PO DAILY 12/20/18 12/20/18 Cholecalciferol (Vitamin D3) 1,000 unit PO DAILY 12/20/18 12/20/18 [Vitamin D3] Garlic 1,000 mg PO DAILY 12/20/18 12/20/18 Insulin Detemir [Levemir Flextouch] 37 units SUBQ BID 12/20/18 12/20/18 Loratadine 10 mg PO DAILY 12/20/18 12/20/18 Multivitamin [Multivitamins] 1 each PO DAILY 12/20/18 12/20/18 - Allergies Allergies/Adverse Reactions: Allergies Allergy/AdvReac Type Severity Reaction Status Date / Time No Known Drug Allergies Allergy Verified 12/20/18 22:03 Review of Systems - Constitutional Constitutional: reports: Fatigue, Fever, Weakness, Poor appetite - Cardiovascular Cariovascular: denies: Chest pain, Edema - Respiratory Respiratory: denies: SOB at rest, SOB with exertion - Gastrointestinal Gastrointestinal: reports: Abdominal pain, Nausea. denies: Vomiting - Genitourinary Genitourinary: reports: Frequency. denies: Dysuria, Urgency, Hematuria - Integumentary Integumentary: reports: Other (Erythematous area over the right side of her abdomen) - Neurological Neurological: reports: General weakness. denies: Focal weakness - Endocrine Endocrine: reports: Polyuria, Polydypsia - All Other Systems All Other Systems: reports: Reviewed and negative Prior Level of Functionality: Ambulates with a walker. Depends on caregivers for assistance with ADL's. Exam - Vital Signs Reviewed Vital Signs: Yes Vital Signs: Vital Signs x48h Temp Pulse Resp BP Pulse Ox 12/21/18 01:46 37.2 C 94 15 159/88 H 98 12/21/18 00:54 37.4 C 96 22 177/82 H 2 L 12/20/18 23:30 96 16 189/73 H 96 12/20/18 22:30 98 22 168/72 H 94 12/20/18 22:03 101 H 12/20/18 22:00 37.7 C H 100 20 173/74 H 93 - Physical Exam General Appearance: positive: No acute distress, Alert Eyes Bilateral: positive: Normal inspection ENT: positive: ENT inspection nml, Dry mucous membranes Neck: positive: Nml inspection Respiratory: positive: No respiratory distress, Other (Diminished breath sounds) Cardiovascular: positive: Regular rate & rhythm, No murmur, Tachycardia Abdomen: positive: No distention, Tenderness (At the site of the erythema) Skin: positive: Other (Area of erythema that is warm to touch and mildly tender located over the right side of the abdomen. There is no appreciable induration or fluid collection. Approximately 10x7cm.) Extremities: positive: No pedal edema Neurologic/Psychiatric: positive: Oriented x3 Sepsis Event Note (H) - Evaluation Current Stage of Sepsis: Sepsis Possible source of Sepsis: positive: Skin/soft tissue - Sepsis Criteria Sepsis Criteria: Recorded Heart Rate greater than 90 bpm, WBC count greater than 10% bands, WBC count greater than 12,000 or less than 4000 Conclusion/Plan - Problem List (1) Sepsis due to cellulitis Conclusion/Plan: Presented with low grade fevers, leukocytosis, elevated bands, and tachycardia. The area of erythema is warm to touch but without induration or signs of abscess formation. She does have a history of MRSA and there is concern of a spider bite from the patient's caregiver. - Continue Vancomycin IV to cover for MRSA - IV hydration - Follow up cultures (2) Diabetic ketoacidosis Conclusion/Plan: She has hyperglycemia with blood glucose >400 with and elevated AG and positive serum ketones. This appears to be mild DKA given the mild elevation in her AG and small ketones. Last A1c was 11.2% in October. - DKA protocol - IV insulin and IV hydration - Labs every 4 hours until AG closes - Check A1c - NPO for now - Nutrition consult - Diabetes education Qualifiers: Diabetes mellitus type: type 2 (3) HFrEF (heart failure with reduced ejection fraction) Conclusion/Plan: Her last echocardiogram revealed an EF of 45%. She is on goal directed therapy. Does not appear to be in exacerbation. Remains on baseline 3L of oxygen. - IV hydration given she has DKA and sepsis - Hold home medications, restart diuretics which clinically appropriate Qualifiers: Heart failure chronicity: chronic Qualified Code(s): I50.22 - Chronic systolic (congestive) heart failure (4) Coronary artery disease Conclusion/Plan: She is on Aspirin and Lovastatin at home. Stable. - Resume home medications (5) Depression with anxiety Conclusion/Plan: She is on Paxil at home. Stable. - Resume home medication (6) HTN (hypertension) Conclusion/Plan: She is hypertensive today despite being septic. Takes Lisinopril, Carvedilol, Aldactone, Furosemide at home for her CHFrEF. - Hold home medications in setting of DKA and sepsis - Aggressive IV hydration Qualifiers: Hypertension type: essential hypertension Qualified Code(s): I10 - Essential (primary) hypertension (7) Hypothyroidism Conclusion/Plan: Last TSH in October was within normal limits. Stable. 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 - Monitor LFT's - Lab Results Lab results reviewed: Yes Fish Bones: 12/20/18 22:20 12/20/18 22:20
[2018-12-21] MEDS ORDERED: VANCOMYCIN INJ 1 GM in SODIUM CHLORIDE 0.9% 250 ML IV SCH ×2 (03:00→04:00)
[2018-12-21] MEDS: INSULIN REGULAR HUMAN 100 UNIT in SODIUM CHLORIDE 0.9% 100ML 99 ML IV SCH ×2 (03:13→07:03)
[2018-12-21] MEDS: SODIUM CHLORIDE FLUSH 0.9% 10 ML SYRINGE IVP PRN ×3 (03:16→12:56)
[2018-12-21] MEDS: SODIUM CHLORIDE 0.9% 1,000 ML IV SCH ×2 (04:09→12:37)
[2018-12-21 04:21] LABS: CALCIUM 9.3 mg/dL (8.5-10.3); MAGNESIUM 1.8 mg/dL (1.7-2.8); PHOSPHORUS 2.7 mg/dL (2.5-4.6)
[2018-12-21] MEDS ORDERED: INSULIN REGULAR HUMAN 100 UNIT/1 ML 10 ML MDV IVP STA (05:23)
[2018-12-21 06:00] LABS: BASOPHILS # (AUTO) 0.1 10^3/uL (0.0-0.1); BASOPHILS % (AUTO) 0.5 %; EOSINOPHILS % (AUTO) 0.1 %; HGB - HEMOGLOBIN 11.3 g/dL (12.0-16.0); LYMPHOCYTES # (AUTO) 1.7 10^3/uL (1.5-3.5); LYMPHOCYTES % (AUTO) 11.7 %; MEAN CORPUSCULAR HEMOGLOBIN 30.3 pg (27.0-31.0); MEAN CORPUSCULAR HGB CONC 31.8 g/dL (32.0-36.0); MEAN CORPUSCULAR VOLUME 95.2 fL (81.0-99.0); MEAN PLATELET VOLUME 9.1 fL (7.9-10.8); MONOCYTES # (AUTO) 0.9 10^3/uL (0.0-1.0); MONOCYTES % (AUTO) 6.2 %; NEUTROPHILS # (AUTO) 11.6 10^3/uL (1.5-6.6); NEUTROPHILS % (AUTO) 80.4 %; PLT - PLATELET COUNT 287 10^3/uL (130-450); RED BLOOD COUNT 3.73 10^6/uL (4.20-5.40); RED CELL DISTRIBUTION WIDTH 12.7 % (12.0-15.0); WHITE BLOOD COUNT 14.4 x10^3/uL (4.8-10.8)
[2018-12-21 06:03] LABS: VBG BASE EXCESS -1.6 mmol/L (-2 - +2); VBG PCO2 53.6 mmHg (41-51); VBG PH 7.295 (7.31-7.41); VBG PO2 53.6 mmHg (25-47); VBG TOTAL CO2 27.1 mmol/L (24-29)
[2018-12-21] MEDS: HEPARIN 5,000 UNIT/ML VIAL SUBQ SCH ×3 (06:22→21:04)
[2018-12-21] MEDS: LEVOTHYROXINE 112 MCG TABLET PO SCH (06:24)
[2018-12-21] MEDS: LEVOTHYROXINE 75 MCG TABLET PO SCH (06:24)
[2018-12-21 06:25] LABS: CALCIUM 8.9 mg/dL (8.5-10.3); MAGNESIUM 1.6 mg/dL (1.7-2.8); PHOSPHORUS 1.8 mg/dL (2.5-4.6)
[2018-12-21 06:34] LABS: HB2 TOTAL 10.8 g/dL; HEMOGLOBIN A1C 1.18 g/dL; HEMOGLOBIN A1C % 12.1 % (4.6-6.2)
[2018-12-21] MEDS ORDERED: POTASSIUM PHOSPHATE 15 MMOL in SODIUM CHLORIDE 0.9% 250 ML IV ONE (07:32)
[2018-12-21] MEDS ORDERED: MAGNESIUM OXIDE 400 MG TABLET PO ONE (08:00)
[2018-12-21] MEDS: CEFEPIME 2 GM in SODIUM CHLORIDE 0.9% MINIBAG 100 ML IV SCH ×2 (08:38→20:03)
[2018-12-21] MEDS ORDERED: VANCOMYCIN PER PHARMACY 2 GM in SODIUM CHLORIDE 0.9% 250 ML IV SCH (09:00)
[2018-12-21] MEDS: ASPIRIN EC 81 MG TABLET PO SCH (09:20)
[2018-12-21] MEDS: SODIUM CHLORIDE FLUSH 0.9% 10 ML SYRINGE IVP SCH ×2 (09:20→17:30)
[2018-12-21 10:16] LABS: CALCIUM 8.8 mg/dL (8.5-10.3); CREATININE 0.9 mg/dL (0.4-1.0); MAGNESIUM 1.7 mg/dL (1.7-2.8); PHOSPHORUS 1.4 mg/dL (2.5-4.6)
--- NOTE | 2018-12-21 10:24 | PROVIDER PROGRESS NOTE ---
Hospitalist Cross-cover Note - Cross-Cover Note Cross-Cover Note: She was admitted at 1 in the morning. As such this is a follow-up note. She is been on insulin drip and is now about 2 come off the drip because glucose is 166. I see that she is on Levemir and short acting insulin. We will give her Lantus right now, Lantus tonight, 5 units of short acting insulin with each meal, plus high sliding scale coverage. We will continue to watch her closely for her sugars and adjust as needed. The cellulitis in the right mid abdomen, laterally, appears to be shrinking from what I can see on the markers drawn on the outer edge of cellulitis last night. She denies any pain with this. There is no fever. Heart rate is in the 90s. Requiring 3 L nasal cannula to maintain O2 sats at 92%.
[2018-12-21] MEDS: INSULIN GLARGINE 300 UNIT/3 ML PEN SUBQ SCH ×2 (11:02→21:15)
[2018-12-21] MEDS: MAGNESIUM OXIDE 400 MG TABLET PO SCH ×2 (12:12→17:29)
[2018-12-21] MEDS: INSULIN ASPART 300 UNIT/3 ML PEN SUBQ SCH ×5 (12:13→21:16)
[2018-12-21] MEDS ORDERED: INSULIN REGULAR HUMAN 100 UNIT in SODIUM CHLORIDE 0.9% 100ML 99 ML IV SCH (13:00)
[2018-12-21] MEDS ORDERED: VANCOMYCIN INJ 2 GM in SODIUM CHLORIDE 0.9% 500 ML IV SCH (15:00)
[2018-12-21] MEDS: POTASSIUM CHLORIDE INJ 40 MEQ in DEXTROSE 5%-0.45% NACL 980 ML IV SCH (15:31)
[2018-12-21] MEDS: VANCOMYCIN INJ 1 GM, VANCOMYCIN INJ 500 MG in SODIUM CHLORIDE 0.9% 500 ML IV SCH (20:03)
[2018-12-21] MEDS: ATORVASTATIN 40 MG TABLET PO SCH (20:48)
[2018-12-21] MEDS ORDERED: INSULIN GLARGINE 300 UNIT/3 ML PEN SUBQ SCH (21:00)
[2018-12-21] MEDS ORDERED: INSULIN ASPART 300 UNIT/3 ML PEN SUBQ ONE (21:01)
[2018-12-21] MEDS: NYSTATIN POWDER 15 GM TOP SCH (21:09)
[2018-12-22] MEDS: SODIUM CHLORIDE FLUSH 0.9% 10 ML SYRINGE IVP SCH ×3 (00:34→16:21)
[2018-12-22] MEDS: SODIUM CHLORIDE FLUSH 0.9% 10 ML SYRINGE IVP PRN (00:34)
[2018-12-22] MEDS ORDERED: INSULIN REGULAR HUMAN 100 UNIT/1 ML 10 ML MDV IVP SCH (01:00)
[2018-12-22] MEDS: POTASSIUM CHLORIDE INJ 40 MEQ in DEXTROSE 5%-0.45% NACL 980 ML IV SCH (01:40)
[2018-12-22 05:59] LABS: BASOPHILS % (AUTO) 0.3 %; EOSINOPHILS % (AUTO) 1.1 %; HGB - HEMOGLOBIN 10.2 g/dL (12.0-16.0); LYMPHOCYTES % (AUTO) 13.8 %; MEAN CORPUSCULAR HEMOGLOBIN 29.6 pg (27.0-31.0); MEAN CORPUSCULAR HGB CONC 30.6 g/dL (32.0-36.0); MEAN CORPUSCULAR VOLUME 96.5 fL (81.0-99.0); MEAN PLATELET VOLUME 9.4 fL (7.9-10.8); MONOCYTES % (AUTO) 12.5 %; NEUTROPHILS % (AUTO) 71.4 %; PLT - PLATELET COUNT 258 10^3/uL (130-450); RED BLOOD COUNT 3.45 10^6/uL (4.20-5.40); RED CELL DISTRIBUTION WIDTH 13.1 % (12.0-15.0); WHITE BLOOD COUNT 16.2 x10^3/uL (4.8-10.8)
[2018-12-22 06:15] LABS: CALCIUM 8.6 mg/dL (8.5-10.3); CREATININE 0.9 mg/dL (0.4-1.0); MAGNESIUM 1.9 mg/dL (1.7-2.8); PHOSPHORUS 1.5 mg/dL (2.5-4.6)
[2018-12-22 06:19] LABS: ABNORMAL LYMPHS % (MANUAL) 0 %
[2018-12-22] MEDS: HEPARIN 5,000 UNIT/ML VIAL SUBQ SCH ×3 (06:27→21:09)
[2018-12-22] MEDS: LEVOTHYROXINE 112 MCG TABLET PO SCH (06:28)
[2018-12-22] MEDS: LEVOTHYROXINE 75 MCG TABLET PO SCH (06:28)
[2018-12-22 06:36] LABS: BAND NEUTROPHILS % (MANUAL) 2 %; LYMPHOCYTES # (MANUAL) 1.9 10^3/uL (1.5-3.5); LYMPHOCYTES % (MANUAL) 12 %
[2018-12-22 06:39] LABS: RBC MORPHOLOGY (MULTIPLE) NORMAL APPEARANCE (NORMAL)
[2018-12-22] MEDS ORDERED: SODIUM PHOSPHATE 15 MMOL in SODIUM CHLORIDE 0.9% 250 ML IV ONE ×2 (06:39→08:00)
[2018-12-22 06:40] LABS: PLATELET ESTIMATE, MANUAL NORMAL (130-450,000) (NORMAL); PLATELET MORPHOLOGY NORMAL APPEARANCE (NORMAL)
[2018-12-22 06:41] LABS: DIFFERENTIAL COMMENT MANUAL DIFFERENTIAL
[2018-12-22] MEDS ORDERED: POTASSIUM PHOSPHATE 21 MMOL in SODIUM CHLORIDE 0.9% 250 ML IV ONE (08:00)
[2018-12-22] MEDS ORDERED: INSULIN ASPART 300 UNIT/3 ML PEN SUBQ ONE ×3 (08:09→17:07)
[2018-12-22] MEDS: INSULIN ASPART 300 UNIT/3 ML PEN SUBQ SCH ×7 (08:15→21:09)
[2018-12-22] MEDS: CEFEPIME 2 GM in SODIUM CHLORIDE 0.9% MINIBAG 100 ML IV SCH ×2 (08:18→19:41)
[2018-12-22] MEDS: INSULIN GLARGINE 300 UNIT/3 ML PEN SUBQ SCH ×2 (08:18→21:10)
[2018-12-22] MEDS: ASPIRIN EC 81 MG TABLET PO SCH (08:19)
[2018-12-22] MEDS: NYSTATIN POWDER 15 GM TOP SCH ×2 (08:19→21:08)
[2018-12-22] MEDS: VANCOMYCIN INJ 1 GM, VANCOMYCIN INJ 500 MG in SODIUM CHLORIDE 0.9% 500 ML IV SCH (13:57)
--- NOTE | 2018-12-22 14:30 | PROVIDER PROGRESS NOTE ---
Subjective - Prog Note Date Prog Note Date: 12/22/18 Prog Note Time: 15:08 - Subjective Subjective: I have been increasing her Lantus. Giving her up to 25 units of short acting insulin before meals. Sugar is in the 300 range. Current Medications - Current Medications Current Medications: Active Medications Acetaminophen (Tylenol) 650 mg PO Q6HR PRN PRN Reason: Pain 1 to 4 Aspirin (Ecotrin) 81 mg PO DAILY [facility] Last Admin: 12/22/18 08:19 Dose: 81 mg Atorvastatin Calcium (Lipitor) 40 mg PO QPM [facility] Last Admin: 12/21/18 20:48 Dose: 40 mg Heparin Sodium (Porcine) () 5,000 unit SUBQ TID [facility] Last Admin: 12/22/18 13:53 Dose: 5,000 unit Vancomycin HCl 1 gm/Vancomycin HCl 500 mg/ Sodium Chloride 500 mls @ 250 mls/hr IV Q18H [facility] Last Admin: 12/22/18 13:57 Dose: 250 mls/hr Cefepime HCl 2 gm/ Sodium (Chloride) 100 mls @ 200 mls/hr IV Q12H [facility] Last Infusion: 12/22/18 09:20 Dose: Infused Insulin Aspart (Novolog) 5 unit SUBQ TIDWM [facility]; Protocol Last Admin: 12/22/18 12:06 Dose: Not Given Insulin Aspart (Novolog) 3 - 11 unit SUBQ 0800,1200,1700,2100 [facility]; Protocol Last Admin: 12/22/18 12:06 Dose: Not Given Insulin Glargine (Lantus Solostar) 35 unit SUBQ QPM [facility] Last Admin: 12/21/18 21:15 Dose: 35 unit Insulin Glargine (Lantus Solostar) 35 unit SUBQ QDBREAKFAST [facility] Levothyroxine Sodium (Synthroid) 112 mcg PO QDAC [facility] Last Admin: 12/22/18 06:28 Dose: 112 mcg Levothyroxine Sodium (Synthroid) 75 mcg PO QDAC [facility] Last Admin: 12/22/18 06:28 Dose: 75 mcg Nystatin (Nystop) 1 applic TOP BID [facility] Last Admin: 12/22/18 08:19 Dose: 1 applic Sodium Chloride (Normal Saline Flush 0.9%) 10 ml IVP 0100,0900,1700 [facility] Last Admin: 12/22/18 08:19 Dose: 10 ml Sodium Chloride (Normal Saline Flush 0.9%) 10 ml IVP PRN PRN PRN Reason: NEEDED PER PROVIDER ORDERS Last Admin: 12/22/18 00:34 Dose: 10 ml Lovastatin [Altoprev] 40 mg ORAL QPM 06/23/14 Insulin Regular, Human [Novolin R] 28 units SUBQ TIDWM 06/22/15 PARoxetine [Paxil] 40 mg PO QPM 06/22/15 Carvedilol 3.125 mg PO DAILY 01/29/16 Furosemide 40 mg PO DAILY 08/23/18 Levalbuterol [Xopenex] 3 ml INH QID PRN 11/18/18 Ascorbic Acid [Vitamin C] 500 mg PO DAILY 12/20/18 Aspirin [Aspirin EC] 81 mg PO DAILY 12/20/18 C,E,Zinc,Copper 11/Jlnde6s/Lut [Ocuvite Adult 50 Plus Softgel] 1 each PO DAILY 12/20/18 Calcium Carbonate [Calcium] 500 mg PO DAILY 12/20/18 Cholecalciferol (Vitamin D3) [Vitamin D3] 1,000 unit PO DAILY 12/20/18 Garlic 1,000 mg PO DAILY 12/20/18 Insulin Detemir [Levemir Flextouch] 37 units SUBQ BID 12/20/18 Loratadine 10 mg PO DAILY 12/20/18 Multivitamin [Multivitamins] 1 each PO DAILY 12/20/18 Objective - Vital Signs/Intake & Output Reviewed Vital Signs: Yes Vital Signs: Vital Signs Temp Pulse Pulse Resp BP Pulse Ox 12/22/18 14:08 36.7 C 85 20 95 12/22/18 14:00 85 20 131/56 H 95 12/22/18 13:00 36.7 C 88 22 144/73 H 94 12/22/18 12:00 37.1 C 92 25 H 147/52 H 94 12/22/18 11:00 84 25 H 138/50 H 94 Intake & Output: Intake & Output 12/19/18 12/20/18 12/21/18 12/22/18 23:59 23:59 23:59 23:59 Intake Total 100 1195.635 2684.332 Output Total 7631 1997 Balance 100 5845.635 439.332 - Objective General Appearance: positive: No acute distress, Other (Sleeps quite a bit. I reassessed her multiple times a day and she is sleeping every time. But is appropriate when she wakes up.Super obese elderly white female) Eyes Bilateral: positive: PERRL, EOMI ENT: positive: Pharynx nml Neck: positive: Other (neck is thick, hard to assess fr JVD). negative: Stiff neck, Carotid bruit Respiratory: positive: Chest non-tender, No respiratory distress, Rales, Other (shallow, slow , unlabored respiration) Cardiovascular: positive: Regular rate & rhythm. negative: Gallop/S4, Friction rub Abdomen: positive: Non-tender, Nml bowel sounds, Other (large, obese, abd panus where the demarcation of cellulitis by pen has not shrunk by much from yesterday to today but it is still smaller than admission markings.) Skin: positive: Warm, Dry, Pallor Extremities: positive: Pedal edema Neurologic/Psychiatric: positive: Oriented x3, CN's nml (2-12). negative: Motor nml (too weak to even roll over on her own, nonfocal) - Lab Results Fish Bones: 12/22/18 04:45 12/22/18 04:45 Other Labs: Lab Results x24hrs 12/22/18 12/22/18 12/21/18 Range/Units 04:45 04:45 14:20 WBC 16.2 H (4.8-10.8) x10^3/uL RBC 3.45 L (4.20-5.40) 10^6/uL Hgb 10.2 L (12.0-16.0) g/dL Hct 33.3 L (37.0-47.0) % MCV 96.5 (81.0-99.0) fL MCH 29.6 (27.0-31.0) pg MCHC 30.6 L (32.0-36.0) g/dL RDW 13.1 (12.0-15.0) % Plt Count 258 (130-450) 10^3/uL MPV 9.4 (7.9-10.8) fL Neut # (Auto) Not Reportable Lymph # (Auto) Not Reportable [place] # (Auto) Not Reportable Eos # (Auto) Not Reportable Baso # (Auto) Not Reportable Absolute Nucleated RBC Not Reportable Total Counted 100 Band Neuts % (Manual) 2 (0 - 10) % Abnorm Lymph % (Manual) 0 % Nucleated RBC % Not Reportable Neutrophils # (Manual) 13.3 H (1.5-6.6) 10^3/uL Lymphocytes # (Manual) 1.9 (1.5-3.5) 10^3/uL Monocytes # (Manual) 1.0 (0.0-1.0) 10^3/uL Eosinophils # (Manual) 0.0 (0-0.7) 10^3/uL Basophils # (Manual) 0.0 (0-0.1) 10^3/uL Differential Comment MANUAL DIFFERENTIAL WBC Morphology NORMAL APPEARANCE (NORMAL) Platelet Estimate NORMAL (130-450,000) (NORMAL) Platelet Morphology NORMAL APPEARANCE (NORMAL) RBC Morph Micro Appear NORMAL APPEARANCE (NORMAL) Sodium 135 (135-145) mmol/L Potassium 5.1 H (3.5-5.0) mmol/L Chloride 99 L (101-111) mmol/L Carbon Dioxide 25 (21-32) mmol/L Anion Gap 11.0 (6-13) BUN 23 H (6-20) mg/dL Creatinine 0.9 (0.4-1.0) mg/dL Estimated GFR (MDRD) 60 L (>89) Glucose 346 H (70-100) mg/dL Calcium 8.6 (8.5-10.3) mg/dL Phosphorus 1.5 L (2.5-4.6) mg/dL Magnesium 1.9 (1.7-2.8) mg/dL Troponin I 0.04 (<0.49) ng/mL Sepsis Event Note (H) - Evaluation Current Stage of Sepsis: Resolved Possible source of Sepsis: positive: Skin/soft tissue - Sepsis Criteria Sepsis Criteria: Recorded Heart Rate greater than 90 bpm, WBC count greater than 10% bands, WBC count greater than 12,000 or less than 4000 Assessment/Plan - Problem List (1) Sepsis due to cellulitis Impression: Resolved sepsis criteria. Cellulitis slowly responsive. On admission, presented with low grade fevers, leukocytosis, elevated bands, and tachycardia. The area of erythema is warm to touch but without induration or signs of abscess formation. She does have a history of MRSA and there is concern of a "spider bite" from the patient's caregiver. Today is day #2. Still with redness and induration, minimal, if any, improvement on exam from yesterday. Blood cultures have been negative. Tachycardia, low grade fever has resolved. Still with leukocytosis and hypoxia. - Continue Vancomycin IV to cover for MRSA, Day #2, Cefipime added for broader coverage in a diabetic. Day #2. - IV hydration (2) Diabetic ketoacidosis Conclusion/Plan: She has hyperglycemia with blood glucose >400 with and elevated AG and positive serum ketones. This appears to be mild DKA given the mild elevation in her AG and small ketones. Last A1c was 11.2% in October. DKA protocol started and off ins ulin drip since morning of December 21. Anion gap started at 15 and is now 11. A1c is 12.1% -Transition to Lantus. I have been increasing her dosing from yesterday to today and will increase to 35 units subcu twice daily -continue to use fixed short acting insulin dose before meals with her long acting lantus, and supplement short acting when needed. - Nutrition consult - Diabetes education Qualifiers: Diabetes mellitus type: type 2 (3) HFrEF (heart failure with reduced ejection fraction) Conclusion/Plan: Her last echocardiogram revealed an EF of 45%. She is on goal directed therapy. Does not appear to be in exacerbation. Remains on baseline 3L of oxygen. - IV hydration given she has DKA and sepsis - Hold home medications, restart diuretics which clinically appropriate: hypoxia is stable, no sob at rest but with rolling over. Check BNP. Qualifiers: Heart failure chronicity: chronic Qualified Code(s): I50.22 - Chronic systolic (congestive) heart failure (4) Coronary artery disease Conclusion/Plan: She is on Aspirin and Lovastatin at home. Stable. - Resume home medications (5) Depression with anxiety Conclusion/Plan: She is on Paxil at home. Stable. - Resume home medication (6) HTN (hypertension) Conclusion/Plan: [id number] Takes Lisinopril, Carvedilol, Aldactone, Furosemide at home for her CHFrEF. - Hold home medications in setting of DKA and sepsis Qualifiers: Hypertension type: essential hypertension Qualified Code(s): I10 - Essential (primary) hypertension (7) Hypothyroidism Conclusion/Plan: Last TSH in October was within normal limits. Stable. 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 - Repeat LFT's
[2018-12-22 16:21] LABS: ALBUMIN 2.8 g/dL (3.2-5.5); BILIRUBIN,DIRECT 0.4 mg/dL (0.1-0.5); BILIRUBIN,TOTAL 0.6 mg/dL (0.2-1.0); TOTAL PROTEIN 6.8 g/dL (6.7-8.2)
[2018-12-22] MEDS: ATORVASTATIN 40 MG TABLET PO SCH (21:08)
[2018-12-22] MEDS: ACETAMINOPHEN 325 MG TABLET PO PRN (21:11)
[2018-12-23] MEDS: SODIUM CHLORIDE FLUSH 0.9% 10 ML SYRINGE IVP SCH ×3 (01:25→17:14)
[2018-12-23 05:05] LABS: BASOPHILS % (AUTO) 0.6 %; HGB - HEMOGLOBIN 10.6 g/dL (12.0-16.0); LYMPHOCYTES % (AUTO) 12.3 %; MEAN CORPUSCULAR HEMOGLOBIN 30.8 pg (27.0-31.0); MEAN CORPUSCULAR HGB CONC 31.9 g/dL (32.0-36.0); MEAN CORPUSCULAR VOLUME 96.5 fL (81.0-99.0); MEAN PLATELET VOLUME 9.4 fL (7.9-10.8); NEUTROPHILS % (AUTO) 72.2 %; PLT - PLATELET COUNT 303 10^3/uL (130-450); RED BLOOD COUNT 3.44 10^6/uL (4.20-5.40); RED CELL DISTRIBUTION WIDTH 12.9 % (12.0-15.0); WHITE BLOOD COUNT 16.3 x10^3/uL (4.8-10.8)
[2018-12-23 05:15] LABS: ABNORMAL LYMPHS % (MANUAL) 0 %; BAND NEUTROPHILS % (MANUAL) 0 %
[2018-12-23 05:19] LABS: CALCIUM 8.9 mg/dL (8.5-10.3); CREATININE 0.8 mg/dL (0.4-1.0); PHOSPHORUS 1.8 mg/dL (2.5-4.6)
[2018-12-23 05:40] LABS: BASOPHILS # (MANUAL) 0.2 10^3/uL (0-0.1); BASOPHILS % (MANUAL) 1 %; EOSINOPHILS # (MANUAL) 0.5 10^3/uL (0-0.7); LYMPHOCYTES # (MANUAL) 2.4 10^3/uL (1.5-3.5); LYMPHOCYTES % (MANUAL) 15 %; MONOCYTES # (MANUAL) 1.3 10^3/uL (0.0-1.0)
[2018-12-23 05:41] LABS: PLATELET MORPHOLOGY NORMAL APPEARANCE (NORMAL); RBC MORPHOLOGY (MULTIPLE) NORMAL APPEARANCE (NORMAL)
[2018-12-23 05:42] LABS: DIFFERENTIAL COMMENT MANUAL DIFFERENTIAL; PLATELET ESTIMATE, MANUAL NORMAL (130-450,000) (NORMAL)
[2018-12-23] MEDS ORDERED: SODIUM PHOSPHATE 15 MMOL in SODIUM CHLORIDE 0.9% 250 ML IV ONE (06:04)
[2018-12-23] MEDS: HEPARIN 5,000 UNIT/ML VIAL SUBQ SCH ×3 (06:12→21:48)
[2018-12-23] MEDS: LEVOTHYROXINE 75 MCG TABLET PO SCH (06:14)
[2018-12-23] MEDS: LEVOTHYROXINE 112 MCG TABLET PO SCH (06:14)
[2018-12-23] MEDS: NEUTRA-PHOS 250 MG TABLET PO SCH ×2 (06:14→09:02)
[2018-12-23] MEDS ORDERED: INSULIN GLARGINE 300 UNIT/3 ML PEN SUBQ SCH ×2 (08:00→23:45)
[2018-12-23 08:14] LABS: VANCOMYCIN,TROUGH 11.6 ug/mL (10.0-20.0)
[2018-12-23] MEDS: CEFEPIME 2 GM in SODIUM CHLORIDE 0.9% MINIBAG 100 ML IV SCH ×2 (08:51→20:08)
[2018-12-23] MEDS: INSULIN ASPART 300 UNIT/3 ML PEN SUBQ SCH ×7 (08:51→20:38)
[2018-12-23] MEDS: NYSTATIN POWDER 15 GM TOP SCH ×2 (08:53→20:30)
[2018-12-23] MEDS: ASPIRIN EC 81 MG TABLET PO SCH (08:53)
[2018-12-23] MEDS: FUROSEMIDE 40 MG TABLET PO SCH (08:53)
[2018-12-23] MEDS: VANCOMYCIN INJ 1 GM, VANCOMYCIN INJ 500 MG in SODIUM CHLORIDE 0.9% 500 ML IV SCH ×2 (09:02→20:42)
--- NOTE | 2018-12-23 16:26 | PROVIDER PROGRESS NOTE ---
Subjective - Prog Note Date Prog Note Date: 12/23/18 Prog Note Time: 16:25 - Subjective Pt reports feeling: Worse Subjective: She is more awake and I have ever seen her. Talkative. But she also states that she is in more pain than she has been. The area of cellulitis that brought her in has been relatively painless for her. And today she says it really stings and aches. Just moving and touching it causes more pain. She has not had any fever spikes with this. Her white cell count came in at 17,000 and she is to 16,000 today. Current Medications - Current Medications Current Medications: Active Medications Acetaminophen (Tylenol) 650 mg PO Q6HR PRN PRN Reason: Pain 1 to 4 Last Admin: 12/22/18 21:11 Dose: 650 mg Aspirin (Ecotrin) 81 mg PO DAILY [facility] Last Admin: 12/23/18 08:53 Dose: 81 mg Atorvastatin Calcium (Lipitor) 40 mg PO QPM [facility] Last Admin: 12/22/18 21:08 Dose: 40 mg Furosemide (Lasix) 40 mg PO DAILY [facility] Last Admin: 12/23/18 08:53 Dose: 40 mg Heparin Sodium (Porcine) () 5,000 unit SUBQ TID [facility] Last Admin: 12/23/18 14:41 Dose: 5,000 unit Cefepime HCl 2 gm/ Sodium (Chloride) 100 mls @ 200 mls/hr IV Q12H [facility] Last Infusion: 12/23/18 09:46 Dose: Infused Vancomycin HCl 1 gm/Vancomycin HCl 500 mg/ Sodium Chloride 500 mls @ 250 mls/hr IV Q12H [facility] Insulin Aspart (Novolog) 3 - 11 unit SUBQ 0800,1200,1700,2100 [facility]; Protocol Last Admin: 12/23/18 12:03 Dose: 11 unit Insulin Aspart (Novolog) 10 unit SUBQ TIDWM [facility]; Protocol Last Admin: 12/23/18 12:04 Dose: 10 unit Insulin Glargine (Lantus Solostar) 35 unit SUBQ QPM [facility] Last Admin: 12/22/18 21:10 Dose: 35 unit Insulin Glargine (Lantus Solostar) 35 unit SUBQ QDBREAKFAST [facility] Last Admin: 12/23/18 08:52 Dose: 35 unit Levothyroxine Sodium (Synthroid) 112 mcg PO QDAC [facility] Last Admin: 12/23/18 06:14 Dose: 112 mcg Levothyroxine Sodium (Synthroid) 75 mcg PO QDAC [facility] Last Admin: 12/23/18 06:14 Dose: 75 mcg Nystatin (Nystop) 1 applic TOP BID [facility] Last Admin: 12/23/18 08:53 Dose: 1 applic Polyethylene Glycol (Miralax) 17 gm PO DAILY [facility] Saccharomyces Boulardii (Florastor) 250 mg PO BIDWM [facility] Sodium Chloride (Normal Saline Flush 0.9%) 10 ml IVP 0100,0900,1700 [facility] Last Admin: 12/23/18 08:53 Dose: 10 ml Sodium Chloride (Normal Saline Flush 0.9%) 10 ml IVP PRN PRN PRN Reason: NEEDED PER PROVIDER ORDERS Last Admin: 12/22/18 00:34 Dose: 10 ml Lovastatin [Altoprev] 40 mg ORAL QPM 06/23/14 Insulin Regular, Human [Novolin R] 28 units SUBQ TIDWM 06/22/15 PARoxetine [Paxil] 40 mg PO QPM 06/22/15 Carvedilol 3.125 mg PO DAILY 01/29/16 Furosemide 40 mg PO DAILY 08/23/18 Levalbuterol [Xopenex] 3 ml INH QID PRN 11/18/18 Ascorbic Acid [Vitamin C] 500 mg PO DAILY 12/20/18 Aspirin [Aspirin EC] 81 mg PO DAILY 12/20/18 C,E,Zinc,Copper 11/Ymrbq7k/Lut [Ocuvite Adult 50 Plus Softgel] 1 each PO DAILY 12/20/18 Calcium Carbonate [Calcium] 500 mg PO DAILY 12/20/18 Cholecalciferol (Vitamin D3) [Vitamin D3] 1,000 unit PO DAILY 12/20/18 Garlic 1,000 mg PO DAILY 12/20/18 Insulin Detemir [Levemir Flextouch] 37 units SUBQ BID 12/20/18 Loratadine 10 mg PO DAILY 12/20/18 Multivitamin [Multivitamins] 1 each PO DAILY 12/20/18 Objective - Vital Signs/Intake & Output Reviewed Vital Signs: Yes Vital Signs: Vital Signs Temp Pulse Pulse Pulse Resp BP BP 12/23/18 16:00 37.0 C 85 19 114/92 H 12/23/18 15:00 87 20 118/70 12/23/18 14:40 89 86 118/70 12/23/18 14:00 92 20 102/66 12/23/18 13:00 93 20 99/61 BP Pulse Ox 12/23/18 16:00 100 12/23/18 15:00 96 12/23/18 14:40 135/78 H 12/23/18 14:00 94 12/23/18 13:00 99 Intake & Output: Intake & Output 12/20/18 12/21/18 12/22/18 12/23/18 23:59 23:59 23:59 23:59 Intake Total 100 7895.635 4164.332 1880 Output Total 20490 1989 Balance 100 5845.635 1414.332 -110 - Objective General Appearance: positive: Alert, Mild distress, Other (Severely overweight elderly female who cannot position herself on the bed. Needs 2 person assist to bring her up on the bed. She is able to feed herself food.) Eyes Bilateral: positive: PERRL, EOMI ENT: positive: Pharynx nml Neck: negative: Stiff neck, Carotid bruit Respiratory: positive: Chest non-tender, No respiratory distress, Other (Decreased breath sounds at the bases, slow shallow respirations. Not a lot of respiratory excursion that I think is from her overall chest wall size.) Cardiovascular: positive: Regular rate & rhythm. negative: Gallop/S4, Friction rub Abdomen: positive: Non-tender, Nml bowel sounds, Other (The area of cellulitis in her right mid abdomen still has the black groins were cellulitis was. She has shrunken down within those lines at least 30%. However the central area where the nidus of infection is it is quite tender. Just to light touch in my index finger causes her to wince and say "ow". There is no fluctuance to the s kin, it is red hot slightly edematous.). negative: Guarding, Rebound Skin: positive: Warm, Dry Extremities: positive: Pedal edema Neurologic/Psychiatric: positive: Oriented x3, CN's nml (2-12), Motor nml - Lab Results Fish Bones: 12/23/18 04:15 12/23/18 04:15 Other Labs: Lab Results x24hrs 12/23/18 12/23/18 12/23/18 Range/Units 07:54 04:15 04:15 WBC 16.3 H (4.8-10.8) x10^3/uL RBC 3.44 L (4.20-5.40) 10^6/uL Hgb 10.6 L (12.0-16.0) g/dL Hct 33.2 L (37.0-47.0) % MCV 96.5 (81.0-99.0) fL MCH 30.8 (27.0-31.0) pg MCHC 31.9 L (32.0-36.0) g/dL RDW 12.9 (12.0-15.0) % Plt Count 303 (130-450) 10^3/uL MPV 9.4 (7.9-10.8) fL Neut # (Auto) Not Reportable Lymph # (Auto) Not Reportable [facility] # (Auto) Not Reportable Eos # (Auto) Not Reportable Baso # (Auto) Not Reportable Absolute Nucleated RBC Not Reportable Total Counted 100 Band Neuts % (Manual) 0 (0 - 10) % Abnorm Lymph % (Manual) 0 % Nucleated RBC % Not Reportable Neutrophils # (Manual) 11.9 H (1.5-6.6) 10^3/uL Lymphocytes # (Manual) 2.4 (1.5-3.5) 10^3/uL Monocytes # (Manual) 1.3 H (0.0-1.0) 10^3/uL Eosinophils # (Manual) 0.5 (0-0.7) 10^3/uL Basophils # (Manual) 0.2 H (0-0.1) 10^3/uL Differential Comment MANUAL DIFFERENTIAL WBC Morphology NORMAL APPEARANCE (NORMAL) Platelet Estimate NORMAL (130-450,000) (NORMAL) Platelet Morphology NORMAL APPEARANCE (NORMAL) RBC Morph Micro Appear NORMAL APPEARANCE (NORMAL) Sodium 136 (135-145) mmol/L Potassium 4.8 (3.5-5.0) mmol/L Chloride 101 (101-111) mmol/L Carbon Dioxide 26 (21-32) mmol/L Anion Gap 9.0 (6-13) BUN 21 H (6-20) mg/dL Creatinine 0.8 (0.4-1.0) mg/dL Estimated GFR (MDRD) 68 L (>89) Glucose 253 H (70-100) mg/dL Calcium 8.9 (8.5-10.3) mg/dL Phosphorus 1.8 L (2.5-4.6) mg/dL Magnesium 2.0 (1.7-2.8) mg/dL Last Dose Date 12/22/18 Last Dose Time 1619 Vancomycin Trough 11.6 (10.0-20.0) ug/mL Sepsis Event Note (H) - Evaluation Current Stage of Sepsis: Resolved Possible source of Sepsis: positive: Skin/soft tissue - Sepsis Criteria Sepsis Criteria: Recorded Heart Rate greater than 90 bpm, WBC count greater than 10% bands, WBC count greater than 12,000 or less than 4000 Assessment/Plan - Problem List (1) Cellulitis Impression: of the trunk/abdominal wall. Resolved sepsis criteria. Cellulitis slowly responsive. On admission, presented with low grade fevers, leukocytosis, elevated bands, and tachycardia. The area of erythema is warm to touch but without induration or signs of abscess formation. She does have a history of MRSA and there is concern of a "spider bite" from the patient's caregiver. Today is day #3. Still with redness and induration, minimal, if any, improvement on exam. She has improved about 30% on the size of redness and she is more painful today. Blood cultures have been negative. Tachycardia, low grade fever has resolved. Still with leukocytosis and hypoxia. - Continue Vancomycin IV to cover for MRSA, Day #3, Cefipime added for broader coverage in a diabetic. Day #3. - IV hydration - Ultrasound of her abdominal wall area to make sure she is not developing an abscess or air (2) Diabetic ketoacidosis resolved but DM is uncontrolled. Conclusion/Plan: On admission, she had hyperglycemia with blood glucose >400 with and elevated AG and positive serum ketones. This appears to be mild DKA given the mild el evation in her AG and small ketones. Last A1c was 11.2% in October. DKA protocol started and off insulin drip since morning of December 21. Anion gap started at 15 and is now 11. A1c is 12.1% -Transitioned to Lantus. I have been increasing her dosing from December 21 and increase to 35 units subcu twice daily -continue to use fixed short acting insulin dose before meals but in spite of increasing her lantus and increasing her ac short acting insulin, she is still in the 300's. I will resume insulin drip at 3-4 units/hour. - Nutrition consult - Diabetes education Qualifiers: Diabetes mellitus type: type 2 (3) HFrEF (heart failure with reduced ejection fraction) Conclusion/Plan: Her last echocardiogram revealed an EF of 45%. She is on goal directed therapy. Does not appear to be in exacerbation. Remains on baseline 3L of oxygen. - IV hydration given she has DKA and sepsis - Hold home medications, restart diuretics which clinically appropriate: hypoxia is stable, no sob at rest but with rolling over. Check BNP. Qualifiers: Heart failure chronicity: chronic Qualified Code(s): I50.22 - Chronic systolic (congestive) heart failure (4) Coronary artery disease Conclusion/Plan: She is on Aspirin and Lovastatin at home. Stable. - Resume home medications (5) Depression with anxiety Conclusion/Plan: She is on Paxil at home. Stable. - Resume home medication (6) HTN (hypertension) Conclusion/Plan: She is lower today. Concerning BP at 100-101 systolic after being high all day yesterday and 120's today. Takes Lisinopril, Carvedilol, Aldactone, Furosemide at home for her CHFrEF. - Hold home medications in setting of DKA and sepsis Qualifiers: Hypertension type: essential hypertension Qualified Code(s): I10 - Essential (primary) hypertension (7) Hypothyroidism Conclusion/Plan: Last TSH in October was within normal limits. Stable. 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 - Repeat LFT's Qualifiers: Qualified Code(s): L03.311 - Cellulitis of abdominal wall
[2018-12-23] MEDS: SACCHAROMYCES BOULARDII 250 MG CAPSULE PO SCH (17:14)
[2018-12-23] MEDS ORDERED: SODIUM CHLORIDE 0.9% 0 ML IV ONE (19:57)
[2018-12-23] MEDS: INSULIN REGULAR HUMAN 100 UNIT in SODIUM CHLORIDE 0.9% 100ML 99 ML IV ONE (20:00)
[2018-12-23] MEDS ORDERED: SODIUM CHLORIDE 0.9% 500 ML IV ONE (20:00)
[2018-12-23] MEDS ORDERED: SODIUM CHLORIDE 0.9% 500 ML IV PRN (20:14)
[2018-12-23] MEDS: ATORVASTATIN 40 MG TABLET PO SCH (20:30)
[2018-12-23] MEDS ORDERED: VANCOMYCIN INJ 1 GM, VANCOMYCIN INJ 500 MG in SODIUM CHLORIDE 0.9% 500 ML IV SCH (21:00)
[2018-12-23] MEDS ORDERED: SODIUM CHLORIDE FLUSH 0.9% 10 ML SYRINGE ONE (23:20)
--- NOTE | 2018-12-23 23:44 | Ultrasound Report ---
Reason: inc pain in cellultis area Procedure Date: 12/23/2018 Accession Number: [id number] / [id number] Procedure: US - Abdomen Limited CPT Code: FULL RESULT: EXAM: ABDOMEN ULTRASOUND LIMITED EXAM DATE: 12/23/2018 09:20 PM. CLINICAL HISTORY: Increasing pain in the cellulitis area. COMPARISON: ABDOMEN LIMITED 08/30/2018 7:37 AM. TECHNIQUE: Real-time scanning was performed with static images obtained. FINDINGS IMPRESSION: 1. There are no organized fluid collections seen at the area of clinical concern within the right lower abdominal wall. 2. No right lower quadrant free fluid. 3. Slightly medial and superior to the level of the umbilicus within the anterior abdominal wall subcutaneous tissues is a heterogeneous hypoechoic collection measuring 1.9 x 1.2 x 0.9 cm. There is no internal vascularity. This is nonspecific. Early abscess difficult to exclude with certainty. 4. Mild hyperemia within the superficial soft tissues at the area of clinical concern. [facility]IA
[2018-12-24] MEDS: SODIUM CHLORIDE FLUSH 0.9% 10 ML SYRINGE IVP SCH ×4 (01:06→23:33)
[2018-12-24 04:57] LABS: BASOPHILS % (AUTO) 0.7 %; EOSINOPHILS % (AUTO) 3.4 %; HGB - HEMOGLOBIN 9.9 g/dL (12.0-16.0); LYMPHOCYTES % (AUTO) 13.9 %; MEAN CORPUSCULAR HEMOGLOBIN 29.6 pg (27.0-31.0); MEAN CORPUSCULAR VOLUME 95.2 fL (81.0-99.0); MEAN PLATELET VOLUME 9.2 fL (7.9-10.8); MONOCYTES % (AUTO) 10.9 %; NEUTROPHILS % (AUTO) 67.6 %; PLT - PLATELET COUNT 305 10^3/uL (130-450); RED BLOOD COUNT 3.35 10^6/uL (4.20-5.40); WHITE BLOOD COUNT 16.2 x10^3/uL (4.8-10.8)
[2018-12-24 05:03] LABS: ABNORMAL LYMPHS % (MANUAL) 0 %; BAND NEUTROPHILS % (MANUAL) 0 %
[2018-12-24 05:11] LABS: CREATININE 0.7 mg/dL (0.4-1.0); MAGNESIUM 1.9 mg/dL (1.7-2.8); PHOSPHORUS 1.8 mg/dL (2.5-4.6)
[2018-12-24 05:26] LABS: BASOPHILS # (MANUAL) 0.2 10^3/uL (0-0.1); BASOPHILS % (MANUAL) 1 %; EOSINOPHILS # (MANUAL) 0.3 10^3/uL (0-0.7); LYMPHOCYTES # (MANUAL) 2.8 10^3/uL (1.5-3.5); LYMPHOCYTES % (MANUAL) 17 %; MONOCYTES # (MANUAL) 1.3 10^3/uL (0.0-1.0)
[2018-12-24 05:33] LABS: DIFFERENTIAL COMMENT MANUAL DIFFERENTIAL; PLATELET ESTIMATE, MANUAL NORMAL (130-450,000) (NORMAL); PLATELET MORPHOLOGY 1+ LARGE PLATELETS (NORMAL)
[2018-12-24] MEDS: NEUTRA-PHOS 250 MG TABLET PO SCH ×2 (06:23→08:45)
[2018-12-24] MEDS: HEPARIN 5,000 UNIT/ML VIAL SUBQ SCH ×3 (06:23→22:03)
[2018-12-24] MEDS: LEVOTHYROXINE 112 MCG TABLET PO SCH (06:26)
[2018-12-24] MEDS: LEVOTHYROXINE 75 MCG TABLET PO SCH (06:26)
[2018-12-24] MEDS: POLYETHYLENE GLYCOL 3350 17 GM PACKET PO SCH (08:45)
[2018-12-24] MEDS: SACCHAROMYCES BOULARDII 250 MG CAPSULE PO SCH ×2 (08:45→18:16)
[2018-12-24] MEDS: FUROSEMIDE 40 MG TABLET PO SCH (08:45)
[2018-12-24] MEDS: ASPIRIN EC 81 MG TABLET PO SCH (08:45)
[2018-12-24] MEDS: INSULIN ASPART 300 UNIT/3 ML PEN SUBQ SCH ×7 (08:52→21:15)
--- NOTE | 2018-12-24 09:40 | ANESTHESIA PROCEDURE NOTE ---
Diagnosis: Cellulitis, need for ABXs, insulin Procedure: PICC line placement@R basilic v. Height and Weight: Height 5 ft 8 in Weight (kg) 160.5 kg Body Mass Index 50.1 Vital Signs: Temp Pulse Resp BP Pulse Ox 37.6 C H 87 17 134/72 H 94 12/24/18 07:52 12/24/18 09:00 12/24/18 09:00 12/24/18 07:52 12/24/18 09:00 Allergies No Known Drug Allergies Allergy (Verified 12/20/18 22:03) Requesting Provider: Faviola Location: ICU [address]. Monitoring and Equipment: Non-invasive BP, Pulse oximetery, Central venous catheter, All ports aspirate blood, Sterile prep and drape Anes. Procedure Start Time: 09:08 Anes. Procedure Stop Time: 09:24 Procedure Notes: Pt ID'd consent for new 5Fr dual lumen PICC. R basilic v. accessed using US [email or web address] after prep, gown, glove, mask, hat, and drape. Wire threaded easily. Dilate. Cath cut to 45cm. VPS tip track used but unable to elicit and pwave response d/t threading. Hubbed. Cath appears to be terminating in SVC. Ports aspirate and flush blood easilyx2. No ectopy t/o procedure and pt only complained with pain at tourniquet. Resolved when tourniquet released. Stat- lock, bio-patch, and tegaderm placed to site. PCXR ordered for confirmation of location.
--- NOTE | 2018-12-24 09:59 | XRAY Report ---
Reason: new PICC@R basilic v Procedure Date: 12/24/2018 Accession Number: [id number] / [id number] Procedure: XR - Chest for Line Placement CPT Code: FULL RESULT: EXAM: CHEST RADIOGRAPHY EXAM DATE: 12/24/2018 09:51 AM. CLINICAL HISTORY: New PICC at right basilic vein. COMPARISON: CHEST 1 VIEW 12/20/2018 10:22 PM. TECHNIQUE: 1 view. FINDINGS: Lungs/Pleura: No focal opacities evident. No pleural effusion. No pneumothorax. Mediastinum: Redemonstration of calcified aortic arch and mild borderline cardiomegaly, exacerbated by expiratory effort and AP portable technique. Other: Right arm PICC terminates with its tip in the region of the juncture of the brachiocephalic vein and superior SVC. IMPRESSION: PICC placement as described. [facility]IA
[2018-12-24] MEDS: INSULIN REGULAR HUMAN 100 UNIT in SODIUM CHLORIDE 0.9% 100ML 99 ML IV ONE (10:03)
[2018-12-24] MEDS: SODIUM CHLORIDE FLUSH 0.9% 10 ML SYRINGE IVP PRN ×2 (10:16→12:33)
[2018-12-24] MEDS: CEFEPIME 2 GM in SODIUM CHLORIDE 0.9% MINIBAG 100 ML IV SCH ×2 (10:19→20:07)
[2018-12-24] MEDS: VANCOMYCIN INJ 1 GM, VANCOMYCIN INJ 500 MG in SODIUM CHLORIDE 0.9% 500 ML IV SCH ×2 (10:23→20:59)
[2018-12-24] MEDS ORDERED: LEVALBUTEROL 1.25 MG/3 ML NEB INH PRN (12:57)
--- NOTE | 2018-12-24 13:07 | PROVIDER PROGRESS NOTE ---
Assessment/Plan - Problem List (1) Cellulitis Qualifiers: Qualified Code(s): L03.311 - Cellulitis of abdominal wall Assessment/Plan: There is minimal improvement of the abdominal wall redness and tenderness. Her white blood count has been plateaued for the last 3 days. There is new tenderness which is focal now, possibly due to the carbuncle. Continue with empiric IV antibiotics. Await blood cultures. We will try to I&D and send for culture the localized fluid which dives 1 cm into her abdominal wall, which was imaged by ultrasound yesterday (carbuncle with sinus tract) (2) Carbuncle Assessment/Plan: The US of abdomen showed a pocket of fluid starting just below the skin surface with a sinus tract. The area is not an open wound. It is too small to drain by DI (discussed with Dr Kendrick). Will request a Surgery consult for I&D, and send fluid for gram stain and culture. 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 Overnight she lost her IV line. This morning a PICC line will be requested. Will transition her to twice daily long-acting insulin and her usual 3 times daily with meal aspart coverage and continue with the sliding scale, high dose insulin coverage. (4) Hypothyroidism Assessment/Plan: She is on her home replacement doses of thyroid meds. (5) Morbid obesity with BMI of 50.0-59.9, adult Assessment/Plan: Continue with carb controlled (low calorie) diet, diuretics and she needs nutrition management/teaching (6) Anemia Assessment/Plan: Despite getting gentle, oral diuresis, she has very low hemoglobin. We will check B12, folate, iron panel and replace if low and check guaiac stool if iron stores are low (7) Coronary artery disease Assessment/Plan: Stable with no cardia pulmonary symptoms. Continue aspirin and statin (8) HFrEF (heart failure with reduced ejection fraction) Qualifiers: Heart failure chronicity: chronic Qualified Code(s): I50.22 - Chronic systolic (congestive) heart failure Assessment/Plan: Continue with her p.o. beta-juan diego, spironolactone and loop diuretic (9) Depression with anxiety Assessment/Plan: Continue with her prehospital medications (10) Diabetic ketoacidosis Qualifiers: Diabetes mellitus type: type 2 Assessment/Plan: Resolved (11) Sepsis due to cellulitis Assessment/Plan: Resolved - Current Meds Current Meds: Current Medications Generic Name Dose Route Start Last Admin Trade Name Freq PRN Reason Stop Dose Admin Acetaminophen 650 mg 12/21/18 01:41 12/22/18 21:11 Tylenol PO 650 mg Q6HR PRN Administration Pain 1 to 4 Aspirin 81 mg 12/21/18 09:00 12/24/18 08:45 Ecotrin PO 81 mg DAILY SHANNAN Administration Atorvastatin Calcium 40 mg 12/21/18 21:00 12/23/18 20:30 Lipitor PO 40 mg QPM SHANNAN Administration Furosemide 40 mg 12/23/18 09:00 12/24/18 08:45 Lasix PO 40 mg DAILY SHANNAN Administration Heparin Sodium (Porcine) 5,000 unit 12/21/18 06:00 12/24/18 06:23 SUBQ 12/24/18 23:00 5,000 unit TID SHANNAN Administration Cefepime HCl 2 gm/ Sodium 100 mls @ 200 mls/hr 12/21/18 08:00 12/24/18 10:49 Chloride IV Infused Q12H SHANNAN Infusion Vancomycin HCl 1 gm/ 500 mls @ 250 mls/hr 12/23/18 21:00 12/24/18 12:34 Vancomycin HCl 500 mg/ Sodium IV Infused Chloride Q12H SHANNAN Infusion Insulin Human Regular 100 unit 100 mls @ 3 mls/hr 12/23/18 18:47 12/24/18 10:03 / Sodium Chloride IV 12/25/18 04:06 3 unit/hr .[id number] ONE 3 mls/hr Administration Protocol 3 UNIT/HR Insulin Aspart 3 - 11 unit 12/21/18 12:00 12/24/18 12:44 Novolog SUBQ 9 unit 0800,1200,1700,2100 SHANNAN Administration Protocol Levothyroxine Sodium 112 mcg 12/21/18 07:00 12/24/18 06:26 Synthroid PO 112 mcg QDAC SHANNAN Administration Levothyroxine Sodium 75 mcg 12/21/18 07:00 12/24/18 06:26 Synthroid PO 75 mcg QDAC SHANNAN Administration Nystatin 1 applic 12/21/18 21:00 12/23/18 20:30 Nystop TOP 1 applic BID SHANNAN Administration Polyethylene Glycol 17 gm 12/24/18 09:00 12/24/18 08:45 Miralax PO 17 gm DAILY SHANNAN Administration Saccharomyces Boulardii 250 mg 12/23/18 17:00 12/24/18 08:45 Florastor PO 250 mg BIDWM SHANNAN Administration Sodium Chloride 10 ml 12/21/18 09:00 12/24/18 10:30 Normal Saline Flush 0.9% IVP Not Given 0100,0900,1700 SHANNAN Sodium Chloride 10 ml 12/21/18 01:41 12/24/18 12:33 Normal Saline Flush 0.9% IVP 10 ml PRN PRN Administration NEEDED PER PROVIDER ORDERS - Lab Result Fish Bone Diagrams: 12/24/18 04:25 12/24/18 04:25 - Additional Planning My Orders: My Active Orders 12/24/18 08:53 PICC Line Care [RC] Q4H PICC Line Insert [RC] .ONCE 12/24/18 11:22 Miscellaneous Laboratory Order [LAB] Urgent 12/24/18 12:25 General Surgery Consult [CONS] Routine 12/24/18 12:57 Levalbuterol [Xopenex] 1.25 mg INH QID PRN 12/24/18 13:00 Nebulizer/MDI Tx. [RC] QID Resp Teach Nebulizer/MDI [RC] .ONCE 12/24/18 17:00 Insulin Regular Human [NovoLIN R] 28 units SUBQ TIDWM 12/24/18 21:00 Insulin NPH Human [NovoLIN N] 38 unit SUBQ BID PARoxetine [Paxil] 40 mg PO QPM 12/25/18 09:00 Enoxaparin [Lovenox] 40 mg SUBQ DAILY Spironolactone [Aldactone] 25 mg PO DAILY Subjective - Subjective Patient Reports: Feeling Better, Abdominal Pain (At superficial site of "pimple" on abdominal wall) Objective Vital Signs: Vital Signs - 24 hr 12/23/18 12/23/18 12/23/18 14:00 14:40 15:00 Temperature Heart Rate [ 89 Activity] Heart Rate [ 92 87 Monitoring electrodes] Heart Rate [ 86 Supine] Respiratory 20 20 Rate Blood Pressure 118/70 [Activity] Blood Pressure 102/66 118/70 [Right Ankle] Blood Pressure 135/78 H [Supine] O2 Saturation 94 96 12/23/18 12/23/18 12/23/18 16:00 17:00 18:00 Temperature 37.0 C Heart Rate [ Activity] Heart Rate [ 85 88 84 Monitoring electrodes] Heart Rate [ Supine] Respiratory 19 18 19 Rate Blood Pressure [Activity] Blood Pressure 114/92 H 127/74 100/67 [Right Ankle] Blood Pressure [Supine] O2 Saturation 100 96 95 12/23/18 12/23/18 12/23/18 19:00 20:00 21:00 Temperature 37.3 C Heart Rate [ Activity] Heart Rate [ 88 85 91 Monitoring electrodes] Heart Rate [ Supine] Respiratory 20 17 20 Rate Blood Pressure [Activity] Blood Pressure 101/62 116/76 133/75 H [Right Ankle] Blood Pressure [Supine] O2 Saturation 95 96 98 12/23/18 12/23/18 12/24/18 22:00 23:00 00:00 Temperature 36.8 C Heart Rate [ Activity] Heart Rate [ 89 89 86 Monitoring electrodes] Heart Rate [ Supine] Respiratory 18 29 H 20 Rate Blood Pressure [Activity] Blood Pressure 114/61 138/93 H 135/89 H [Right Ankle] Blood Pressure [Supine] O2 Saturation 97 95 97 12/24/18 12/24/18 12/24/18 01:00 02:00 04:00 Temperature 36.7 C Heart Rate [ Activity] Heart Rate [ 85 83 83 Monitoring electrodes] Heart Rate [ Supine] Respiratory 21 18 21 Rate Blood Pressure [Activity] Blood Pressure 120/46 L 117/78 103/64 [Right Ankle] Blood Pressure [Supine] O2 Saturation 92 95 95 12/24/18 12/24/18 12/24/18 05:00 06:00 07:00 Temperature Heart Rate [ Activity] Heart Rate [ 85 85 85 Monitoring electrodes] Heart Rate [ Supine] Respiratory 17 17 17 Rate Blood Pressure [Activity] Blood Pressure 100/69 98/84 H 133/106 H [Right Ankle] Blood Pressure [Supine] O2 Saturation 96 95 96 12/24/18 12/24/18 12/24/18 07:52 09:00 10:00 Temperature 37.6 C H Heart Rate [ Activity] Heart Rate [ 82 87 89 Monitoring electrodes] Heart Rate [ Supine] Respiratory 19 17 18 Rate Blood Pressure [Activity] Blood Pressure 134/72 H 136/78 H [Right Ankle] Blood Pressure [Supine] O2 Saturation 95 94 97 12/24/18 12/24/18 11:00 11:49 Temperature 37.2 C Heart Rate [ Activity] Heart Rate [ 87 Monitoring electrodes] Heart Rate [ Supine] Respiratory 20 Rate Blood Pressure [Activity] Blood Pressure 111/61 [Right Ankle] Blood Pressure [Supine] O2 Saturation 95 Oxygen O2 Source [Without Activity] Nasal cannula O2 Source Nasal cannula Oxygen Flow Rate 2 I&O (Last 24 Hrs): Intake and Output Totals x24h 12/22/18 12/23/18 12/24/18 23:59 23:59 23:59 Intake Total 4164.332 2950 1262.15 Output Total 2750 3010 1179 Balance 1414.332 -60 83.15 General: Alert, Oriented x3 HEENT: Mucous membr. moist/pink Neck: Supple, No JVD Neuro: Non Focal Cardiovascular: Regular rate, No murmurs Respiratory: No respiratory distress, Breath sounds nml Abdomen: Other (Obese with pannus.Mid abdomen Indurated red and warm area in the right. In the center of this there is a 1 x 1 cm raised red skin covered carbuncle.) Extremities: Other (1+ edema to the knees.) - Results Results: Laboratory Results WBC 16.2 x10^3/uL (4.8-10.8) H 12/24/18 04:25 RBC 3.35 10^6/uL (4.20-5.40) L 12/24/18 04:25 Hgb 9.9 g/dL (12.0-16.0) L 12/24/18 04:25 Hct 31.9 % (37.0-47.0) L 12/24/18 04:25 MCV 95.2 fL (81.0-99.0) 12/24/18 04:25 MCH 29.6 pg (27.0-31.0) 12/24/18 04:25 MCHC 31.0 g/dL (32.0-36.0) L 12/24/18 04:25 RDW 13.0 % (12.0-15.0) 12/24/18 04:25 Plt Count 305 10^3/uL (130-450) 12/24/18 04:25 MPV 9.2 fL (7.9-10.8) 12/24/18 04:25 Neut # (Auto) Not Reportable 12/24/18 04:25 Lymph # (Auto) Not Reportable 12/24/18 04:25 [place] # (Auto) Not Reportable 12/24/18 04:25 Eos # (Auto) Not Reportable 12/24/18 04:25 Baso # (Auto) Not Reportable 12/24/18 04:25 Absolute Nucleated RBC Not Reportable 12/24/18 04:25 Total Counted 100 12/24/18 04:25 Band Neuts % (Manual) 0 % (0-10) 12/24/18 04:25 Abnorm Lymph % (Manual) 0 % 12/24/18 04:25 Nucleated RBC % Not Reportable 12/24/18 04:25 Neutrophils # (Manual) 11.7 10^3/uL (1.5-6.6) H 12/24/18 04:25 Lymphocytes # (Manual) 2.8 10^3/uL (1.5-3.5) 12/24/18 04:25 Monocytes # (Manual) 1.3 10^3/uL (0.0-1.0) H 12/24/18 04:25 Eosinophils # (Manual) 0.3 10^3/uL (0-0.7) 12/24/18 04:25 Basophils # (Manual) 0.2 10^3/uL (0-0.1) H 12/24/18 04:25 Differential Comment MANUAL DIFFERENTIAL 12/24/18 04:25 Manual Slide Review Indicated 12/20/18 22:20 WBC Morphology NORMAL APPEARANCE (NORMAL) 12/24/18 04:25 Platelet Estimate NORMAL (130-450,000) (NORMAL) 12/24/18 04:25 Platelet Morphology 1+ LARGE PLATELETS (NORMAL) 12/24/18 04:25 RBC Morph Micro Appear 1+ BASO STIPPLING (NORMAL) 1+ HYPOCHROMASIA (NORMAL) 12/24/18 04:25 RBC Morph Micro Appear 1+ BASO STIPPLING (NORMAL) 1+ HYPOCHROMASIA (NORMAL) 12/24/18 04:25 VBG pH 7.295 (7.31-7.41) L 12/21/18 05:25 VBG pCO2 53.6 mmHg (41-51) H 12/21/18 05:25 VBG pO2 53.6 mmHg (25-47) H 12/21/18 05:25 VBG HCO3 25.5 mmol/L (23-28) 12/21/18 05:25 VBG Total CO2 27.1 mmol/L (24-29) 12/21/18 05:25 VBG O2 Saturation 86.8 % (60-80) H 12/21/18 05:25 VBG Base Excess -1.6 mmol/L (-2 - +2) 12/21/18 05:25 Sodium 136 mmol/L (135-145) 12/24/18 04:25 Potassium 4.5 mmol/L (3.5-5.0) 12/24/18 04:25 Chloride 99 mmol/L (101-111) L 12/24/18 04:25 Carbon Dioxide 27 mmol/L (21-32) 12/24/18 04:25 Anion Gap 10.0 (6-13) 12/24/18 04:25 BUN 18 mg/dL (6-20) 12/24/18 04:25 Creatinine 0.7 mg/dL (0.4-1.0) 12/24/18 04:25 Estimated GFR (MDRD) 80 (>89) L 12/24/18 04:25 Glucose 276 mg/dL (70-100) H 12/24/18 04:25 Glycated Hemoglobin 12.1 % (4.6-6.2) H 12/21/18 05:25 Estim Average Glucose 301 (70-100) H 12/21/18 05:25 Lactic Acid 1.4 mmol/L (0.5-2.2) 12/20/18 22:20 Calcium 9.0 mg/dL (8.5-10.3) 12/24/18 04:25 Phosphorus 1.8 mg/dL (2.5-4.6) L 12/24/18 04:25 Magnesium 1.9 mg/dL (1.7-2.8) 12/24/18 04:25 Total Bilirubin 0.6 mg/dL (0.2-1.0) 12/22/18 04:45 Direct Bilirubin 0.4 mg/dL (0.1-0.5) 12/22/18 04:45 AST 51 IU/L (10-42) H 12/22/18 04:45 ALT 51 IU/L (10-60) 12/22/18 04:45 Alkaline Phosphatase 166 IU/L (42-121) H 12/22/18 04:45 Troponin I 0.04 ng/mL (<0.49) 12/21/18 14:20 Total Protein 6.8 g/dL (6.7-8.2) 12/22/18 04:45 Albumin 2.8 g/dL (3.2-5.5) L 12/22/18 04:45 Globulin 4.0 g/dL (2.1-4.2) 12/22/18 04:45 Albumin/Globulin Ratio 1.0 (1.0-2.2) 12/20/18 22:20 Lipase 30 U/L (22-51) 12/20/18 22:20 Urine Color YELLOW 12/20/18 22:47 Urine Clarity CLEAR (CLEAR) 12/20/18 22:47 Urine pH 5.5 PH (5.0-7.5) 12/20/18 22:47 Ur Specific [place] 1.010 (1.002-1.030) 12/20/18 22:47 Urine Protein NEGATIVE mg/dL (NEGATIVE) 12/20/18 22:47 Urine Glucose (UA) >=1000 mg/dL (NEGATIVE) H 12/20/18 22:47 Urine Ketones 15 mg/dL (NEGATIVE) H 12/20/18 22:47 Urine Occult Blood TRACE-LYSE (NEGATIVE) 12/20/18 22:47 Urine Nitrite NEGATIVE (NEGATIVE) 12/20/18 22:47 Urine Bilirubin NEGATIVE (NEGATIVE) 12/20/18 22:47 Urine Urobilinogen 0.2 (NORMAL) E.U./dL (NORMAL) 12/20/18 22:47 Ur Leukocyte Esterase NEGATIVE (NEGATIVE) 12/20/18 22:47 Ur Microscopic Review NOT INDICATED 12/20/18 22:47 Urine Culture Comments NOT INDICATED 12/20/18 22:47 Nasal Screen MRSA (PCR) NEGATIVE (NEGATIVE) 12/21/18 02:50 Last Dose Date 12/22/18 12/23/18 07:54 Last Dose Time 1619 12/23/18 07:54 Vancomycin Trough 11.6 ug/mL (10.0-20.0) 12/23/18 07:54 Serum Ketones SMALL (NEGATIVE) H 12/20/18 22:20 Sepsis Event Note (H) - Evaluation Current Stage of Sepsis: Resolved Possible source of Sepsis: positive: Skin/soft tissue - Sepsis Criteria Sepsis Criteria: Recorded Heart Rate greater than 90 bpm, WBC count greater than 10% bands, WBC count greater than 12,000 or less than 4000
[2018-12-24] MEDS: NYSTATIN POWDER 15 GM TOP SCH ×2 (13:33→21:16)
[2018-12-24] MEDS: ACETAMINOPHEN 325 MG TABLET PO PRN ×2 (13:51→20:59)
--- NOTE | 2018-12-24 16:00 | CONSULTATION NOTE ---
Referring Provider Name of Referring Provider:: Dr. Salmeron Consult Date: 12/24/18 Chief Complaint - Chief Complaint Chief Complaint: soft tissue infection abd wall History of Present Illness - Admitted From Admitted From:: ER - History Obtained From Records Reviewed: yes History obtained from: pt, records Exam Limitations: morbid obesity - History of Present Illness HPI Comment/Other: 83 yo female with morbid obesity and IDDM with 1 week hx of fever, hyperglycemia and painful erthymatous rash of right anterolateral abd wall. She thought it may have begun with an insect bite. No hx prior similar infections. She was admitted 3 days ago with a diagnosis of abd wall cellutitis and placed on antibiotics including vancomycin and cefipime. The area of erythema and leukocytosis have slowly but invompletely resolved and pain at the site has increased today. No drainage has occured; her fever has resolved. An US of the abd wall was performed today showing no definite fluid collection or abscess formation. Surgical consultation was requested for consideration of surgical exploration/drainage. Her EMR notes a hx of MRSA but I am unable to obtain more information from the EMR and pt has no recollection of details. 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 uses 3.0 lit. O2, n.c. at home. Has O2 concentrater - Past Surgical History /LAYOUT MECHANIC: reports: Hysterectomy HEENT: reports: Cataracts, Tonsil/Adenoidectomy - Family & Social History Family History: Mother: , Alzheimer's Disease, Diabetes, Type 2, Father: , Sister: , Other family: Family History Comment/Other: The patient's father at age 40 of pulmonary embolism and the patient's mother at age 84 of complications of Alzheimer's disease. The patient had a daughter with Down syndrome who recently at age 59, and denies any history of cancer or heart disease in the family. Her sister of a cerebral aneurysm. 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 Currently lives with her caregivers. Quit smoking back in the s. Approximately 45 pack year smoking history. - Substance History Use: Uses substance without health or social issues: NONE - POLST Patient has POLST: Yes POLST Status: DNR Meds/Allgy - Home Medications Home Medications: Ambulatory Orders Medication Instructions Recorded Confirmed Lovastatin [Altoprev] 40 mg ORAL QPM 06/23/14 12/20/18 Insulin Regular, Human [Novolin R] 28 units SUBQ TIDWM 06/22/15 12/20/18 PARoxetine [Paxil] 40 mg PO QPM 06/22/15 12/20/18 Carvedilol 3.125 mg PO DAILY 01/29/16 12/20/18 Levothyroxine [Synthroid] 75 mcg PO QDAC #30 tablet 12/28/17 12/20/18 Levothyroxine [Synthroid] 112 mcg PO QDAC #30 tablet 12/28/17 12/20/18 Lisinopril 5 mg PO DAILY #30 tablet 12/28/17 12/20/18 Spironolactone [Aldactone] 25 mg PO DAILY #30 tablet 12/28/17 12/20/18 Furosemide 40 mg PO DAILY 08/23/18 12/20/18 Levalbuterol [Xopenex] 3 ml INH QID PRN 11/18/18 12/21/18 Ascorbic Acid [Vitamin C] 500 mg PO DAILY 12/20/18 12/21/18 Aspirin [Aspirin EC] 81 mg PO DAILY 12/20/18 12/20/18 C,E,Zinc,Copper 11/Wntzi1n/Lut 1 each PO DAILY 12/20/18 12/20/18 [Ocuvite Adult 50 Plus Softgel] Calcium Carbonate [Calcium] 500 mg PO DAILY 12/20/18 12/20/18 Cholecalciferol (Vitamin D3) 1,000 unit PO DAILY 12/20/18 12/20/18 [Vitamin D3] Garlic 1,000 mg PO DAILY 12/20/18 12/20/18 Insulin Detemir [Levemir Flextouch] 37 units SUBQ BID 12/20/18 12/20/18 Loratadine 10 mg PO DAILY 12/20/18 12/20/18 Multivitamin [Multivitamins] 1 each PO DAILY 12/20/18 12/20/18 - Allergies Allergies/Adverse Reactions: Allergies Allergy/AdvReac Type Severity Reaction Status Date / Time No Known Drug Allergies Allergy Verified 12/20/18 22:03 Exam - Vital Signs Reviewed Vital Signs: Yes Vital Signs: Vital Signs x48h Temp Pulse Resp BP BP Pulse Ox 12/24/18 15:00 89 21 115/96 H 97 12/24/18 13:00 97 18 108/59 L 12/24/18 11:49 37.2 C 12/24/18 11:00 87 20 111/61 95 12/24/18 10:00 89 18 136/78 H 97 12/24/18 09:00 87 17 94 - Physical Exam General Appearance: positive: No acute distress, Alert Abdomen: positive: Non-tender, No organomegaly, No distention, Other (marked truncal obesity). negative: Guarding, Rebound, Hepatomegaly, Splenomegaly, Mass Skin: positive: Skin rash (right upper quadrant extending into right flank: large (greater than 30 cm diameter) area of confluent erythema, induration maximal in RUQ and focal, 1 cm diameter area of localized ecchymosis but no fluctuance; minimal tenderness, no areas of skin breakdown or drainage; no bullae, or areas of gangrene or crepitus.) Neurologic/Psychiatric: positive: Oriented x3 Conclusion/Plan - Diagnosis Diagnosis: Soft tissue infection of abdominal wall, slowly improving, appears to be cellulitis; no evidence of abscess or necrotizing infection at this time. Does not have an appearance typical for MRSA, but slow healing is certainly consistent with same. - Plan Plan: Agree with present management. No surgical intervention appears necessary or warranted at this time. Thanks, - Lab Results Lab results reviewed: Yes Fish Bones: 12/24/18 04:25 12/24/18 04:25 - Diagnostic Imaging Results Diagnostic Imaging Results: positive: Final report reviewed Diagnostic Imaging Results Comments: See HPI
[2018-12-24] MEDS ORDERED: INSULIN REGULAR HUMAN 100 UNIT/1 ML 10 ML MDV SUBQ SCH (17:00)
[2018-12-24] MEDS: PARoxetine 10 MG TABLET PO SCH (21:16)
[2018-12-24] MEDS: ATORVASTATIN 40 MG TABLET PO SCH (21:16)
[2018-12-24] MEDS: INSULIN NPH HUMAN 100 UNIT/1 ML 10 ML MDV SUBQ SCH (21:16)
[2018-12-25 05:07] LABS: BASOPHILS # (AUTO) 0.1 10^3/uL (0.0-0.1); BASOPHILS % (AUTO) 0.7 %; EOSINOPHILS # (AUTO) 0.6 10^3/uL (0.0-0.7); EOSINOPHILS % (AUTO) 3.8 %; HGB - HEMOGLOBIN 9.7 g/dL (12.0-16.0); LYMPHOCYTES # (AUTO) 2.7 10^3/uL (1.5-3.5); LYMPHOCYTES % (AUTO) 18.1 %; MEAN CORPUSCULAR HEMOGLOBIN 30.6 pg (27.0-31.0); MEAN CORPUSCULAR HGB CONC 32.3 g/dL (32.0-36.0); MEAN CORPUSCULAR VOLUME 94.6 fL (81.0-99.0); MEAN PLATELET VOLUME 9.2 fL (7.9-10.8); MONOCYTES # (AUTO) 1.8 10^3/uL (0.0-1.0); MONOCYTES % (AUTO) 11.9 %; NEUTROPHILS # (AUTO) 8.9 10^3/uL (1.5-6.6); NEUTROPHILS % (AUTO) 58.7 %; PLT - PLATELET COUNT 297 10^3/uL (130-450); RED BLOOD COUNT 3.17 10^6/uL (4.20-5.40); WHITE BLOOD COUNT 15.2 x10^3/uL (4.8-10.8)
[2018-12-25 05:27] LABS: CALCIUM 8.8 mg/dL (8.5-10.3); CREATININE 0.7 mg/dL (0.4-1.0); MAGNESIUM 1.9 mg/dL (1.7-2.8)
[2018-12-25 06:45] LABS: DIFFERENTIAL COMMENT MANUAL=AUTO DIFF; PLATELET ESTIMATE, MANUAL NORMAL (130-450,000) (NORMAL); RBC MORPHOLOGY (MULTIPLE) NORMAL APPEARANCE (NORMAL)
[2018-12-25] MEDS ORDERED: LEVOTHYROXINE 75 MCG TABLET PO SCH (07:00)
[2018-12-25] MEDS ORDERED: LEVOTHYROXINE 112 MCG TABLET PO SCH (07:00)
[2018-12-25] MEDS: LEVOTHYROXINE 75 MCG TABLET PO SCH (07:01)
[2018-12-25] MEDS: NEUTRA-PHOS 250 MG TABLET PO SCH ×2 (07:01→09:03)
[2018-12-25] MEDS: LEVOTHYROXINE 112 MCG TABLET PO SCH (07:06)
[2018-12-25 07:22] LABS: FOLATE > 49.60 ng/mL (5.90 - >24.8)
[2018-12-25] MEDS: CEFEPIME 2 GM in SODIUM CHLORIDE 0.9% MINIBAG 100 ML IV SCH ×2 (08:39→20:20)
[2018-12-25] MEDS: SODIUM CHLORIDE FLUSH 0.9% 10 ML SYRINGE IVP PRN (08:48)
[2018-12-25] MEDS: INSULIN ASPART 300 UNIT/3 ML PEN SUBQ SCH ×7 (08:51→21:22)
[2018-12-25] MEDS: SACCHAROMYCES BOULARDII 250 MG CAPSULE PO SCH ×2 (09:02→18:51)
[2018-12-25] MEDS: FUROSEMIDE 40 MG TABLET PO SCH (09:03)
[2018-12-25] MEDS: ASPIRIN EC 81 MG TABLET PO SCH (09:03)
[2018-12-25] MEDS: ENOXAPARIN 40 MG/0.4 ML SYRINGE SUBQ SCH (09:04)
[2018-12-25] MEDS: INSULIN NPH HUMAN 100 UNIT/1 ML 10 ML MDV SUBQ SCH ×2 (09:04→21:22)
[2018-12-25 09:12] LABS: % IRON SATURATION 11 % (20-50); IRON 26 ug/dL (28-170); TOTAL IRON BINDING CAPACITY 231 ug/dL (250-450); TRANSFERRIN 165 mg/dL (192-382)
[2018-12-25] MEDS: NYSTATIN POWDER 15 GM TOP SCH ×2 (09:15→21:23)
[2018-12-25] MEDS: SODIUM CHLORIDE FLUSH 0.9% 10 ML SYRINGE IVP SCH ×2 (09:16→18:50)
[2018-12-25] MEDS: POLYETHYLENE GLYCOL 3350 17 GM PACKET PO SCH (09:16)
[2018-12-25 09:22] LABS: VANCOMYCIN,TROUGH 22.6 ug/mL (10.0-20.0)
[2018-12-25] MEDS: SPIRONOLACTONE 25 MG TABLET PO SCH (09:38)
[2018-12-25] MEDS: VANCOMYCIN INJ 1 GM, VANCOMYCIN INJ 500 MG in SODIUM CHLORIDE 0.9% 500 ML IV SCH (09:38)
--- NOTE | 2018-12-25 10:46 | PROVIDER PROGRESS NOTE ---
Assessment/Plan - Problem List (1) Cellulitis Qualifiers: Qualified Code(s): L03.311 - Cellulitis of abdominal wall Assessment/Plan: The WBC was plateaued at 16 for 3 days and decreased only to 15 today, but her L shift has resolved. I discussed the case with Infectious Disease, and we reviewed weather the patient should be on different broad-spectrum coverage and the ID fellow said that Cefepime and Vanco is very broad and adequate. The ID Fellow did recommend trying to eliminate the source: the carbuncle, to drain that small liquefied area which was seen on US. She got a PICC line yesterday, for further iv antibiotics, duration to be determined, based on course of #2 Will transfer out of the ICU. (2) Carbuncle Assessment/Plan: Diagnostic Imaging stated there was not enough to withdraw under ultrasound guidance. General surgery consult yesterday said there was not enough fluid to go after with I&D. Will order warm soaks to this area on her abdomen, to come to a head and then obtain the fluid for culture. (3) Diabetes mellitus with hyperglycemia Qualifiers: Diabetes mellitus type: type 2 Diabetes mellitus long term care administrator insulin use: with long term care administrator use Qualified Code(s): E11.65 - Type 2 diabetes mellitus with hyperglycemia; Z79.4 - terminal operator (current) use of insulin Assessment/Plan: Continue plan for twice daily Lantus insulin sq, 28 units of Aspart insulin with meals (3 times daily) and high-dose sliding scale insulin coverage, on a carb controlled diet. (4) Hypothyroidism Assessment/Plan: She remains on her home doses of thyroid medication (5) Morbid obesity with BMI of 50.0-59.9, adult Assessment/Plan: Continue with calorie control diet as described above (6) Anemia Qualifiers: Anemia type: iron deficiency Assessment/Plan: Will start oral Iron replacement. Will order a guiac stool test. (7) Coronary artery disease Assessment/Plan: Stable during this admission (8) HFrEF (heart failure with reduced ejection fraction) Qualifiers: Heart failure chronicity: chronic Qualified Code(s): I50.22 - Chronic systolic (congestive) heart failure Assessment/Plan: Stable with trace leg edema during this admission. Her home medications for CHF were continued (9) Depression with anxiety Assessment/Plan: Her home antidepressant is continued while here (10) Diabetic ketoacidosis Qualifiers: Diabetes mellitus type: type 2 Assessment/Plan: Resolved (11) Sepsis due to cellulitis Assessment/Plan: Resolved - Current Meds Current Meds: Current Medications Generic Name Dose Route Start Last Admin Trade Name Freq PRN Reason Stop Dose Admin Acetaminophen 650 mg 12/21/18 01:41 12/24/18 20:59 Tylenol PO 650 mg Q6HR PRN Administration Pain 1 to 4 Aspirin 81 mg 12/21/18 09:00 12/25/18 09:03 Ecotrin PO 81 mg DAILY SHANNAN Administration Atorvastatin Calcium 40 mg 12/21/18 21:00 12/24/18 21:16 Lipitor PO 40 mg QPM SHANNAN Administration Enoxaparin Sodium 40 mg 12/25/18 09:00 12/25/18 09:04 Lovenox SUBQ 40 mg DAILY SHANNAN Administration Furosemide 40 mg 12/23/18 09:00 12/25/18 09:03 Lasix PO 40 mg DAILY SHANNAN Administration Cefepime HCl 2 gm/ Sodium 100 mls @ 200 mls/hr 12/21/18 08:00 12/25/18 09:13 Chloride IV Infused Q12H SHANNAN Infusion Vancomycin HCl 1 gm/ 500 mls @ 250 mls/hr 12/23/18 21:00 12/25/18 09:38 Vancomycin HCl 500 mg/ Sodium IV Not Given Chloride Q12H SHANNAN Insulin Aspart 3 - 11 unit 12/21/18 12:00 12/25/18 08:51 Novolog SUBQ 3 unit 0800,1200,1700,2100 SHANNAN Administration Protocol Insulin Aspart 28 unit 12/24/18 18:00 12/25/18 08:52 Novolog SUBQ 28 unit TIDWM SHANNAN Administration Insulin Human NPH 38 unit 12/24/18 21:00 12/25/18 09:04 Novolin N SUBQ 38 unit BID SHANNAN Administration Levothyroxine Sodium 112 mcg 12/21/18 07:00 12/25/18 07:06 Synthroid PO 112 mcg QDAC SHANNAN Administration Levothyroxine Sodium 75 mcg 12/21/18 07:00 12/25/18 07:01 Synthroid PO 75 mcg QDAC SHANNAN Administration Nystatin 1 applic 12/21/18 21:00 12/25/18 09:15 Nystop TOP 1 applic BID SHANNAN Administration Paroxetine HCl 40 mg 12/24/18 21:00 12/24/18 21:16 Paxil PO 40 mg QPM SHANNAN Administration Polyethylene Glycol 17 gm 12/24/18 09:00 12/25/18 09:16 Miralax PO Not Given DAILY SHANNAN Saccharomyces Boulardii 250 mg 12/23/18 17:00 12/25/18 09:02 Florastor PO 250 mg BIDWM SHANNAN Administration Sodium Chloride 10 ml 12/21/18 09:00 12/25/18 09:16 Normal Saline Flush 0.9% IVP 10 ml 0100,0900,1700 SHANNAN Administration Sodium Chloride 10 ml 12/21/18 01:41 12/25/18 08:48 Normal Saline Flush 0.9% IVP 30 ml PRN PRN Administration NEEDED PER PROVIDER ORDERS Spironolactone 25 mg 12/25/18 09:00 12/25/18 09:38 Aldactone PO 25 mg DAILY SHANNAN Administration - Lab Result Fish Bone Diagrams: 12/25/18 04:58 12/25/18 04:58 - Additional Planning My Orders: My Active Orders 12/24/18 11:22 Miscellaneous Laboratory Order [LAB] Urgent 12/24/18 11:45 CUL,WOUND (AEROBIC) [RM] Urgent 12/24/18 12:25 General Surgery Consult [CONS] Routine 12/24/18 12:57 Levalbuterol [Xopenex] 1.25 mg INH QID PRN 12/24/18 13:00 Nebulizer/MDI Tx. [RC] .QID PRN Resp Teach Nebulizer/MDI [RC] .ONCE 12/24/18 18:00 Insulin Aspart [NovoLOG] 28 unit SUBQ TIDWM 12/24/18 21:00 Insulin NPH Human [NovoLIN N] 38 unit SUBQ BID PARoxetine [Paxil] 40 mg PO QPM 12/25/18 Home Health Referral [CONS] Routine 12/25/18 08:09 Miscellaenous Nursing Order [RC] QSHIFT 12/25/18 09:00 Enoxaparin [Lovenox] 40 mg SUBQ DAILY Spironolactone [Aldactone] 25 mg PO DAILY 12/25/18 10:44 Delaney Discontinuation [RC] ONCE Subjective - Subjective Patient Reports: Resting Comfortably, Fatigue Nursing Reports: Other (She did more with PT today then yesterday.) Objective Vital Signs: Vital Signs - 24 hr 12/24/18 12/24/18 12/24/18 11:00 11:49 13:00 Temperature 37.2 C Heart Rate Heart Rate [ 87 97 Monitoring electrodes] Respiratory 20 18 Rate Blood Pressure 108/59 L [Left Radial artery] Blood Pressure 111/61 [Right Ankle] O2 Saturation 95 12/24/18 12/24/18 12/24/18 15:00 17:00 19:00 Temperature 36.7 C Heart Rate Heart Rate [ 89 89 85 Monitoring electrodes] Respiratory 21 15 19 Rate Blood Pressure [Left Radial artery] Blood Pressure 115/96 H 125/72 113/96 H [Right Ankle] O2 Saturation 97 96 98 12/24/18 12/24/18 12/25/18 21:00 23:00 01:00 Temperature Heart Rate Heart Rate [ 89 81 79 Monitoring electrodes] Respiratory 21 21 15 Rate Blood Pressure [Left Radial artery] Blood Pressure 122/99 H 132/82 H 137/63 H [Right Ankle] O2 Saturation 97 99 99 12/25/18 12/25/18 12/25/18 03:00 05:00 07:00 Temperature 36.8 C Heart Rate Heart Rate [ 87 79 82 Monitoring electrodes] Respiratory 21 17 16 Rate Blood Pressure [Left Radial artery] Blood Pressure 118/69 110/89 H 115/96 H [Right Ankle] O2 Saturation 99 99 92 12/25/18 12/25/18 12/25/18 08:09 09:00 09:42 Temperature 37.1 C Heart Rate 82 Heart Rate [ 80 86 Monitoring electrodes] Respiratory 20 20 17 Rate Blood Pressure [Left Radial artery] Blood Pressure 120/74 126/71 [Right Ankle] O2 Saturation 97 96 Oxygen O2 Source [Without Activity] Nasal cannula O2 Source Nasal cannula Oxygen Flow Rate 2 I&O (Last 24 Hrs): Intake and Output Totals x24h 12/23/18 12/24/18 12/25/18 23:59 23:59 23:59 Intake Total 2950 2902.483 960 Output Total 3010 2293 588 Balance -60 609.483 372 General: Alert, Oriented x3 HEENT: Mucous membr. moist/pink Neck: Supple Neuro: Non Focal Cardiovascular: Regular rate, No murmurs Respiratory: No respiratory distress, Breath sounds nml Abdomen: Other (Obese with a large pannus. Warm are of R mid abdomen, unchanged furuncle.) Extremities: Other (Trace edema) - Results Results: Laboratory Results WBC 15.2 x10^3/uL (4.8-10.8) H 12/25/18 04:58 RBC 3.17 10^6/uL (4.20-5.40) L 12/25/18 04:58 Hgb 9.7 g/dL (12.0-16.0) L 12/25/18 04:58 Hct 30.0 % (37.0-47.0) L 12/25/18 04:58 MCV 94.6 fL (81.0-99.0) 12/25/18 04:58 MCH 30.6 pg (27.0-31.0) 12/25/18 04:58 MCHC 32.3 g/dL (32.0-36.0) 12/25/18 04:58 RDW 13.0 % (12.0-15.0) 12/25/18 04:58 Plt Count 297 10^3/uL (130-450) 12/25/18 04:58 MPV 9.2 fL (7.9-10.8) 12/25/18 04:58 Neut # (Auto) 8.9 10^3/uL (1.5-6.6) H 12/25/18 04:58 Lymph # (Auto) 2.7 10^3/uL (1.5-3.5) 12/25/18 04:58 [place] # (Auto) 1.8 10^3/uL (0.0-1.0) H 12/25/18 04:58 Eos # (Auto) 0.6 10^3/uL (0.0-0.7) 12/25/18 04:58 Baso # (Auto) 0.1 10^3/uL (0.0-0.1) 12/25/18 04:58 Absolute Nucleated RBC 0.03 x10^3/uL 12/25/18 04:58 Total Counted 100 12/24/18 04:25 Band Neuts % (Manual) Not Reportable 12/25/18 04:58 Abnorm Lymph % (Manual) Not Reportable 12/25/18 04:58 Nucleated RBC % 0.2 /100WBC 12/25/18 04:58 Neutrophils # (Manual) Not Reportable 12/25/18 04:58 Lymphocytes # (Manual) Not Reportable 12/25/18 04:58 Monocytes # (Manual) Not Reportable 12/25/18 04:58 Eosinophils # (Manual) Not Reportable 12/25/18 04:58 Basophils # (Manual) Not Reportable 12/25/18 04:58 Differential Comment MANUAL=AUTO DIFF 12/25/18 04:58 Manual Slide Review Indicated 12/20/18 22:20 WBC Morphology NORMAL APPEARANCE (NORMAL) 12/24/18 04:25 Platelet Estimate NORMAL (130-450,000) (NORMAL) 12/25/18 04:58 Platelet Morphology 1+ LARGE PLATELETS (NORMAL) 12/24/18 04:25 RBC Morph Micro Appear 1+ BASO STIPPLING (NORMAL) 1+ HYPOCHROMASIA (NORMAL) 12/24/18 04:25 RBC Morph Micro Appear NORMAL APPEARANCE (NORMAL) 12/25/18 04:58 VBG pH 7.295 (7.31-7.41) L 12/21/18 05:25 VBG pCO2 53.6 mmHg (41-51) H 12/21/18 05:25 VBG pO2 53.6 mmHg (25-47) H 12/21/18 05:25 VBG HCO3 25.5 mmol/L (23-28) 12/21/18 05:25 VBG Total CO2 27.1 mmol/L (24-29) 12/21/18 05:25 VBG O2 Saturation 86.8 % (60-80) H 12/21/18 05:25 VBG Base Excess -1.6 mmol/L (-2 - +2) 12/21/18 05:25 Sodium 138 mmol/L (135-145) 12/25/18 04:58 Potassium 4.2 mmol/L (3.5-5.0) 12/25/18 04:58 Chloride 100 mmol/L (101-111) L 12/25/18 04:58 Carbon Dioxide 29 mmol/L (21-32) 12/25/18 04:58 Anion Gap 9.0 (6-13) 12/25/18 04:58 BUN 17 mg/dL (6-20) 12/25/18 04:58 Creatinine 0.7 mg/dL (0.4-1.0) 12/25/18 04:58 Estimated GFR (MDRD) 80 (>89) L 12/25/18 04:58 Glucose 163 mg/dL (70-100) H 12/25/18 04:58 Glycated Hemoglobin 12.1 % (4.6-6.2) H 12/21/18 05:25 Estim Average Glucose 301 (70-100) H 12/21/18 05:25 Lactic Acid 1.4 mmol/L (0.5-2.2) 12/20/18 22:20 Calcium 8.8 mg/dL (8.5-10.3) 12/25/18 04:58 Phosphorus 2.0 mg/dL (2.5-4.6) L 12/25/18 04:58 Magnesium 1.9 mg/dL (1.7-2.8) 12/25/18 04:58 Iron 26 ug/dL (28-170) L 12/25/18 08:41 TIBC 231 ug/dL (250-450) L 12/25/18 08:41 % Saturation 11 % (20-50) L 12/25/18 08:41 Transferrin 165 mg/dL (192-382) L 12/25/18 08:41 Total Bilirubin 0.6 mg/dL (0.2-1.0) 12/22/18 04:45 Direct Bilirubin 0.4 mg/dL (0.1-0.5) 12/22/18 04:45 AST 51 IU/L (10-42) H 12/22/18 04:45 ALT 51 IU/L (10-60) 12/22/18 04:45 Alkaline Phosphatase 166 IU/L (42-121) H 12/22/18 04:45 Troponin I 0.04 ng/mL (<0.49) 12/21/18 14:20 Total Protein 6.8 g/dL (6.7-8.2) 12/22/18 04:45 Albumin 2.8 g/dL (3.2-5.5) L 12/22/18 04:45 Globulin 4.0 g/dL (2.1-4.2) 12/22/18 04:45 Albumin/Globulin Ratio 1.0 (1.0-2.2) 12/20/18 22:20 Lipase 30 U/L (22-51) 12/20/18 22:20 Vitamin B12 1638 pg/mL (180-914) H 12/25/18 04:58 Folate > 49.60 ng/mL (5.90 - >24.8) 12/25/18 04:58 Urine Color YELLOW 12/20/18 22:47 Urine Clarity CLEAR (CLEAR) 12/20/18 22:47 Urine pH 5.5 PH (5.0-7.5) 12/20/18 22:47 Ur Specific [place] 1.010 (1.002-1.030) 12/20/18 22:47 Urine Protein NEGATIVE mg/dL (NEGATIVE) 12/20/18 22:47 Urine Glucose (UA) >=1000 mg/dL (NEGATIVE) H 12/20/18 22:47 Urine Ketones 15 mg/dL (NEGATIVE) H 12/20/18 22:47 Urine Occult Blood TRACE-LYSE (NEGATIVE) 12/20/18 22:47 Urine Nitrite NEGATIVE (NEGATIVE) 12/20/18 22:47 Urine Bilirubin NEGATIVE (NEGATIVE) 12/20/18 22:47 Urine Urobilinogen 0.2 (NORMAL) E.U./dL (NORMAL) 12/20/18 22:47 Ur Leukocyte Esterase NEGATIVE (NEGATIVE) 12/20/18 22:47 Ur Microscopic Review NOT INDICATED 12/20/18 22:47 Urine Culture Comments NOT INDICATED 12/20/18 22:47 Nasal Screen MRSA (PCR) NEGATIVE (NEGATIVE) 12/21/18 02:50 Last Dose Date 12/24/18 12/25/18 08:41 Last Dose Time 2305 12/25/18 08:41 Vancomycin Trough 22.6 ug/mL (10.0-20.0) H 12/25/18 08:41 Serum Ketones SMALL (NEGATIVE) H 12/20/18 22:20 Sepsis Event Note (H) - Evaluation Current Stage of Sepsis: Resolved Possible source of Sepsis: positive: Skin/soft tissue - Sepsis Criteria Sepsis Criteria: Recorded Heart Rate greater than 90 bpm, WBC count greater than 10% bands, WBC count greater than 12,000 or less than 4000
[2018-12-25] MEDS: VANCOMYCIN INJ 1 GM in SODIUM CHLORIDE 0.9% 250 ML IV SCH (21:28)
[2018-12-25] MEDS: ATORVASTATIN 40 MG TABLET PO SCH (21:30)
[2018-12-26] MEDS: PARoxetine 10 MG TABLET PO SCH ×2 (05:19→21:09)
[2018-12-26] MEDS: LEVOTHYROXINE 112 MCG TABLET PO SCH (06:58)
[2018-12-26] MEDS: SODIUM CHLORIDE FLUSH 0.9% 10 ML SYRINGE IVP SCH ×4 (06:58→23:56)
[2018-12-26] MEDS: LEVOTHYROXINE 75 MCG TABLET PO SCH (06:58)
[2018-12-26] MEDS: CEFEPIME 2 GM in SODIUM CHLORIDE 0.9% MINIBAG 100 ML IV SCH ×2 (08:00→20:04)
[2018-12-26] MEDS: SACCHAROMYCES BOULARDII 250 MG CAPSULE PO SCH ×2 (08:05→17:30)
[2018-12-26] MEDS: INSULIN ASPART 300 UNIT/3 ML PEN SUBQ SCH ×7 (08:21→21:10)
[2018-12-26] MEDS: ENOXAPARIN 40 MG/0.4 ML SYRINGE SUBQ SCH (08:52)
[2018-12-26] MEDS: SPIRONOLACTONE 25 MG TABLET PO SCH (08:52)
[2018-12-26] MEDS: VANCOMYCIN INJ 1 GM in SODIUM CHLORIDE 0.9% 250 ML IV SCH ×2 (08:52→21:09)
[2018-12-26] MEDS: FUROSEMIDE 40 MG TABLET PO SCH (08:52)
[2018-12-26] MEDS: ASPIRIN EC 81 MG TABLET PO SCH (08:52)
[2018-12-26] MEDS: POLYETHYLENE GLYCOL 3350 17 GM PACKET PO SCH (08:56)
[2018-12-26] MEDS: INSULIN NPH HUMAN 100 UNIT/1 ML 10 ML MDV SUBQ SCH ×2 (09:03→21:11)
[2018-12-26 09:25] LABS: BASOPHILS # (AUTO) 0.1 10^3/uL (0.0-0.1); BASOPHILS % (AUTO) 0.4 %; EOSINOPHILS # (AUTO) 0.6 10^3/uL (0.0-0.7); EOSINOPHILS % (AUTO) 3.5 %; HGB - HEMOGLOBIN 9.8 g/dL (12.0-16.0); LYMPHOCYTES # (AUTO) 3.1 10^3/uL (1.5-3.5); LYMPHOCYTES % (AUTO) 19.5 %; MEAN CORPUSCULAR HGB CONC 31.4 g/dL (32.0-36.0); MEAN CORPUSCULAR VOLUME 95.4 fL (81.0-99.0); MEAN PLATELET VOLUME 9.3 fL (7.9-10.8); MONOCYTES # (AUTO) 1.5 10^3/uL (0.0-1.0); MONOCYTES % (AUTO) 9.4 %; NEUTROPHILS # (AUTO) 7.9 10^3/uL (1.5-6.6); NEUTROPHILS % (AUTO) 49.4 %; PLT - PLATELET COUNT 325 10^3/uL (130-450); RED BLOOD COUNT 3.27 10^6/uL (4.20-5.40); RED CELL DISTRIBUTION WIDTH 13.2 % (12.0-15.0)
[2018-12-26] MEDS: NYSTATIN POWDER 15 GM TOP SCH ×2 (09:25→21:08)
--- NOTE | 2018-12-26 17:51 | PROVIDER PROGRESS NOTE ---
Assessment/Plan - Problem List (1) Cellulitis Qualifiers: Site of cellulitis: trunk Site of cellulitis of trunk: abdominal wall Qualified Code(s): L03.311 - Cellulitis of abdominal wall Assessment/Plan: The WBC has dropped only minimally from yesterday. Continue iv antibiotics, transition to empiric oral antibiotics tomorrow. (2) Carbuncle Assessment/Plan: I have re-ordered a surgical consult for I&D of the carbuncle, with cutures to be sent and wound management orders from the surgeon. 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 Follow CBC daily (7) Coronary artery disease Assessment/Plan: Stable (8) HFrEF (heart failure with reduced ejection fraction) Qualifiers: Heart failure chronicity: chronic Qualified Code(s): I50.22 - Chronic systolic (congestive) heart failure Assessment/Plan: Stable (9) Depression with anxiety Assessment/Plan: She is on her home medications while (10) Diabetic ketoacidosis Qualifiers: Diabetes mellitus type: type 2 Assessment/Plan: Resolved (11) Sepsis due to cellulitis Assessment/Plan: Resolved - Current Meds Current Meds: Current Medications Generic Name Dose Route Start Last Admin Trade Name Freq PRN Reason Stop Dose Admin Acetaminophen 650 mg 12/21/18 01:41 12/24/18 20:59 Tylenol PO 650 mg Q6HR PRN Administration Pain 1 to 4 Aspirin 81 mg 12/21/18 09:00 12/26/18 08:52 Ecotrin PO 81 mg DAILY SHANNAN Administration Atorvastatin Calcium 40 mg 12/21/18 21:00 12/25/18 21:30 Lipitor PO 40 mg QPM SHANNAN Administration Enoxaparin Sodium 40 mg 12/25/18 09:00 12/26/18 08:52 Lovenox SUBQ 40 mg DAILY SHANNAN Administration Furosemide 40 mg 12/23/18 09:00 12/26/18 08:52 Lasix PO 40 mg DAILY SHANNAN Administration Cefepime HCl 2 gm/ Sodium 100 mls @ 200 mls/hr 12/21/18 08:00 12/26/18 08:30 Chloride IV Infused Q12H SHANNAN Infusion Vancomycin HCl 1 gm/ Sodium 250 mls @ 250 mls/hr 12/25/18 21:00 12/26/18 10:32 Chloride IV Infused Q12H SHANNAN Infusion Insulin Aspart 3 - 11 unit 12/21/18 12:00 12/26/18 17:01 Novolog SUBQ 3 unit 0800,1200,1700,2100 SHANNAN Administration Protocol Insulin Aspart 28 unit 12/24/18 18:00 12/26/18 17:02 Novolog SUBQ 28 unit TIDWM SHANNAN Administration Insulin Human NPH 38 unit 12/24/18 21:00 12/26/18 09:03 Novolin N SUBQ 38 unit BID SHANNAN Administration Levothyroxine Sodium 112 mcg 12/21/18 07:00 12/26/18 06:58 Synthroid PO 112 mcg QDAC SHANNAN Administration Levothyroxine Sodium 75 mcg 12/21/18 07:00 12/26/18 06:58 Synthroid PO 75 mcg QDAC SHANNAN Administration Nystatin 1 applic 12/21/18 21:00 12/26/18 09:25 Nystop TOP 1 applic BID SHANNAN Administration Paroxetine HCl 40 mg 12/24/18 21:00 12/26/18 05:19 Paxil PO Not Given QPM SHANNAN Polyethylene Glycol 17 gm 12/24/18 09:00 12/26/18 08:56 Miralax PO Not Given DAILY SHANNAN Saccharomyces Boulardii 250 mg 12/23/18 17:00 12/26/18 17:30 Florastor PO 250 mg BIDWM SHANNAN Administration Sodium Chloride 10 ml 12/21/18 09:00 12/26/18 17:33 Normal Saline Flush 0.9% IVP 10 ml 0100,0900,1700 SHANNAN Administration Sodium Chloride 10 ml 12/21/18 01:41 12/25/18 08:48 Normal Saline Flush 0.9% IVP 30 ml PRN PRN Administration NEEDED PER PROVIDER ORDERS Spironolactone 25 mg 12/25/18 09:00 12/26/18 08:52 Aldactone PO 25 mg DAILY SHANNAN Administration - Lab Result Fish Bone Diagrams: 12/29/18 05:04 12/28/18 05:15 - Additional Planning My Orders: My Active Orders 12/26/18 Consult [General Surgery Consult] [CONS] Routine 12/27/18 08:30 VANCOMYCIN TROUGH [CHEM] Timed Subjective - Subjective Patient Reports: Feeling Better, Resting Comfortably, No Complaints Objective Vital Signs: Vital Signs - 24 hr 12/25/18 12/25/18 12/26/18 18:44 21:00 01:00 Temperature 37.3 C 36.8 C Heart Rate [ 88 87 83 Monitoring electrodes] Respiratory 19 17 Rate Blood Pressure 154/70 H [Left Radial artery] Blood Pressure 114/54 L [Right Radial artery] O2 Saturation 97 97 97 12/26/18 12/26/18 12/26/18 05:00 09:00 13:00 Temperature 36.9 C 36.7 C Heart Rate [ 79 84 80 Monitoring electrodes] Respiratory 16 19 21 Rate Blood Pressure 140/91 H [Left Radial artery] Blood Pressure 126/87 H [Right Radial artery] O2 Saturation 96 95 95 12/26/18 17:00 Temperature 36.8 C Heart Rate [ 85 Monitoring electrodes] Respiratory 23 Rate Blood Pressure 186/92 H [Left Radial artery] Blood Pressure [Right Radial artery] O2 Saturation 3 L Oxygen O2 Source [Without Activity] Nasal cannula O2 Source Nasal cannula Oxygen Flow Rate 2 I&O (Last 24 Hrs): Intake and Output Totals x24h 12/24/18 12/25/18 12/26/18 23:59 23:59 23:59 Intake Total 2902.483 2925 3445 Output Total 2293 2138 1350 Balance 609.935 266 2469 General: Alert, Oriented x3 HEENT: Mucous membr. moist/pink Neck: Supple Neuro: Non Focal Cardiovascular: Regular rate Respiratory: No respiratory distress Abdomen: Soft, Other (Less warm, more localized area of redness, carbuncle has come to a siegel.) Extremities: Other (Trace-1+ edema) - Results Results: Laboratory Results WBC 16.0 x10^3/uL (4.8-10.8) H 12/26/18 09:10 RBC 3.27 10^6/uL (4.20-5.40) L 07/18/19 09:10 Hgb 9.8 g/dL (12.0-16.0) L 12/26/18 09:10 Hct 31.2 % (37.0-47.0) L 12/26/18 09:10 MCV 95.4 fL (81.0-99.0) 12/26/18 09:10 MCH 30.0 pg (27.0-31.0) 12/26/18 09:10 MCHC 31.4 g/dL (32.0-36.0) L 12/26/18 09:10 RDW 13.2 % (12.0-15.0) 12/26/18 09:10 Plt Count 325 10^3/uL (130-450) 12/26/18 09:10 MPV 9.3 fL (7.9-10.8) 12/26/18 09:10 Neut # (Auto) 7.9 10^3/uL (1.5-6.6) H 12/26/18 09:10 Lymph # (Auto) 3.1 10^3/uL (1.5-3.5) 12/26/18 09:10 [place] # (Auto) 1.5 10^3/uL (0.0-1.0) H 12/26/18 09:10 Eos # (Auto) 0.6 10^3/uL (0.0-0.7) 12/26/18 09:10 Baso # (Auto) 0.1 10^3/uL (0.0-0.1) 12/26/18 09:10 Absolute Nucleated RBC 0.05 x10^3/uL 12/26/18 09:10 Total Counted 100 12/24/18 04:25 Band Neuts % (Manual) Not Reportable 12/25/18 04:58 Abnorm Lymph % (Manual) Not Reportable 12/25/18 04:58 Nucleated RBC % 0.3 /100WBC 12/26/18 09:10 Neutrophils # (Manual) Not Reportable 12/25/18 04:58 Lymphocytes # (Manual) Not Reportable 12/25/18 04:58 Monocytes # (Manual) Not Reportable 12/25/18 04:58 Eosinophils # (Manual) Not Reportable 12/25/18 04:58 Basophils # (Manual) Not Reportable 12/25/18 04:58 Differential Comment MANUAL=AUTO DIFF 12/25/18 04:58 Manual Slide Review Indicated 12/20/18 22:20 WBC Morphology NORMAL APPEARANCE (NORMAL) 12/24/18 04:25 Platelet Estimate NORMAL (130-450,000) (NORMAL) 12/25/18 04:58 Platelet Morphology 1+ LARGE PLATELETS (NORMAL) 12/24/18 04:25 RBC Morph Micro Appear 1+ BASO STIPPLING (NORMAL) 1+ HYPOCHROMASIA (NORMAL) 12/24/18 04:25 RBC Morph Micro Appear NORMAL APPEARANCE (NORMAL) 12/25/18 04:58 VBG pH 7.295 (7.31-7.41) L 12/21/18 05:25 VBG pCO2 53.6 mmHg (41-51) H 12/21/18 05:25 VBG pO2 53.6 mmHg (25-47) H 12/21/18 05:25 VBG HCO3 25.5 mmol/L (23-28) 12/21/18 05:25 VBG Total CO2 27.1 mmol/L (24-29) 12/21/18 05:25 VBG O2 Saturation 86.8 % (60-80) H 12/21/18 05:25 VBG Base Excess -1.6 mmol/L (-2 - +2) 12/21/18 05:25 Sodium 138 mmol/L (135-145) 12/25/18 04:58 Potassium 4.2 mmol/L (3.5-5.0) 12/25/18 04:58 Chloride 100 mmol/L (101-111) L 12/25/18 04:58 Carbon Dioxide 29 mmol/L (21-32) 12/25/18 04:58 Anion Gap 9.0 (6-13) 12/25/18 04:58 BUN 17 mg/dL (6-20) 12/25/18 04:58 Creatinine 0.7 mg/dL (0.4-1.0) 12/25/18 04:58 Estimated GFR (MDRD) 80 (>89) L 12/25/18 04:58 Glucose 163 mg/dL (70-100) H 12/25/18 04:58 Glycated Hemoglobin 12.1 % (4.6-6.2) H 12/21/18 05:25 Estim Average Glucose 301 (70-100) H 12/21/18 05:25 Lactic Acid 1.4 mmol/L (0.5-2.2) 12/20/18 22:20 Calcium 8.8 mg/dL (8.5-10.3) 12/25/18 04:58 Phosphorus 2.0 mg/dL (2.5-4.6) L 12/25/18 04:58 Magnesium 1.9 mg/dL (1.7-2.8) 12/25/18 04:58 Iron 26 ug/dL (28-170) L 12/25/18 08:41 TIBC 231 ug/dL (250-450) L 12/25/18 08:41 % Saturation 11 % (20-50) L 12/25/18 08:41 Transferrin 165 mg/dL (192-382) L 12/25/18 08:41 Total Bilirubin 0.6 mg/dL (0.2-1.0) 12/22/18 04:45 Direct Bilirubin 0.4 mg/dL (0.1-0.5) 12/22/18 04:45 AST 51 IU/L (10-42) H 12/22/18 04:45 ALT 51 IU/L (10-60) 12/22/18 04:45 Alkaline Phosphatase 166 IU/L (42-121) H 12/22/18 04:45 Troponin I 0.04 ng/mL (<0.49) 12/21/18 14:20 Total Protein 6.8 g/dL (6.7-8.2) 12/22/18 04:45 Albumin 2.8 g/dL (3.2-5.5) L 12/22/18 04:45 Globulin 4.0 g/dL (2.1-4.2) 12/22/18 04:45 Albumin/Globulin Ratio 1.0 (1.0-2.2) 12/20/18 22:20 Lipase 30 U/L (22-51) 12/20/18 22:20 Vitamin B12 1638 pg/mL (180-914) H 12/25/18 04:58 Folate > 49.60 ng/mL (5.90 - >24.8) 12/25/18 04:58 Urine Color YELLOW 12/20/18 22:47 Urine Clarity CLEAR (CLEAR) 12/20/18 22:47 Urine pH 5.5 PH (5.0-7.5) 12/20/18 22:47 Ur Specific [place] 1.010 (1.002-1.030) 12/20/18 22:47 Urine Protein NEGATIVE mg/dL (NEGATIVE) 12/20/18 22:47 Urine Glucose (UA) >=1000 mg/dL (NEGATIVE) H 12/20/18 22:47 Urine Ketones 15 mg/dL (NEGATIVE) H 12/20/18 22:47 Urine Occult Blood TRACE-LYSE (NEGATIVE) 12/20/18 22:47 Urine Nitrite NEGATIVE (NEGATIVE) 12/20/18 22:47 Urine Bilirubin NEGATIVE (NEGATIVE) 12/20/18 22:47 Urine Urobilinogen 0.2 (NORMAL) E.U./dL (NORMAL) 12/20/18 22:47 Ur Leukocyte Esterase NEGATIVE (NEGATIVE) 12/20/18 22:47 Ur Microscopic Review NOT INDICATED 12/20/18 22:47 Urine Culture Comments NOT INDICATED 12/20/18 22:47 Nasal Screen MRSA (PCR) NEGATIVE (NEGATIVE) 12/21/18 02:50 Last Dose Date 12/24/18 12/25/18 08:41 Last Dose Time 2305 12/25/18 08:41 Vancomycin Trough 22.6 ug/mL (10.0-20.0) H 12/25/18 08:41 Serum Ketones SMALL (NEGATIVE) H 12/20/18 22:20 Sepsis Event Note (H) - Evaluation Current Stage of Sepsis: Resolved Possible source of Sepsis: positive: Skin/soft tissue - Sepsis Criteria Sepsis Criteria: Recorded Heart Rate greater than 90 bpm, WBC count greater than 10% bands, WBC count greater than 12,000 or less than 4000
[2018-12-26] MEDS ORDERED: LIDOCAINE-MPF 1% 5 ML VIAL ONE (18:36)
[2018-12-26] MEDS: SODIUM CHLORIDE FLUSH 0.9% 10 ML SYRINGE IVP PRN (20:05)
[2018-12-26] MEDS: ATORVASTATIN 40 MG TABLET PO SCH (21:09)
[2018-12-27] MEDS: LEVOTHYROXINE 75 MCG TABLET PO SCH (06:08)
[2018-12-27] MEDS: LEVOTHYROXINE 112 MCG TABLET PO SCH (06:08)
[2018-12-27] MEDS: CEFEPIME 2 GM in SODIUM CHLORIDE 0.9% MINIBAG 100 ML IV SCH ×2 (07:54→20:26)
[2018-12-27] MEDS: INSULIN ASPART 300 UNIT/3 ML PEN SUBQ SCH ×7 (08:00→20:31)
[2018-12-27] MEDS: FUROSEMIDE 40 MG TABLET PO SCH (08:51)
[2018-12-27] MEDS: INSULIN NPH HUMAN 100 UNIT/1 ML 10 ML MDV SUBQ SCH ×2 (08:51→22:23)
[2018-12-27] MEDS: SPIRONOLACTONE 25 MG TABLET PO SCH (08:52)
[2018-12-27] MEDS: ASPIRIN EC 81 MG TABLET PO SCH (08:53)
[2018-12-27] MEDS: ENOXAPARIN 40 MG/0.4 ML SYRINGE SUBQ SCH (08:53)
[2018-12-27] MEDS: NYSTATIN POWDER 15 GM TOP SCH ×2 (08:53→20:31)
[2018-12-27] MEDS: SACCHAROMYCES BOULARDII 250 MG CAPSULE PO SCH ×2 (08:53→16:27)
[2018-12-27] MEDS: SODIUM CHLORIDE FLUSH 0.9% 10 ML SYRINGE IVP SCH ×2 (08:55→16:27)
[2018-12-27] MEDS: POLYETHYLENE GLYCOL 3350 17 GM PACKET PO SCH (08:57)
[2018-12-27 09:32] LABS: VANCOMYCIN,TROUGH 19.2 ug/mL (10.0-20.0)
[2018-12-27] MEDS: VANCOMYCIN INJ 1 GM in SODIUM CHLORIDE 0.9% 250 ML IV SCH ×2 (09:52→21:04)
--- NOTE | 2018-12-27 18:40 | PROVIDER PROGRESS NOTE ---
Assessment/Plan - Problem List (1) Cellulitis Qualifiers: Site of cellulitis: trunk Site of cellulitis of trunk: abdominal wall Qualified Code(s): L03.311 - Cellulitis of abdominal wall Assessment/Plan: Continue with IV antibiotics. Await cultures. Surgical consult requested (2) Carbuncle Assessment/Plan: Request for surgical drainage of the area that has come to a point. This was done by Dr. Ferrari The sample was sent for aerobic and anaerobic cultures. 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 (6) Anemia Qualifiers: Anemia type: iron deficiency Assessment/Plan: Oral iron replacement therapy was started (7) Coronary artery disease Assessment/Plan: Stable. (8) HFrEF (heart failure with reduced ejection fraction) Qualifiers: Heart failure chronicity: chronic Qualified Code(s): I50.22 - Chronic systolic (congestive) heart failure Assessment/Plan: Stable with no signs of shortness of breath and minimal leg edema (9) Depression with anxiety Assessment/Plan: She is on her home therapy while (10) Diabetic ketoacidosis Qualifiers: Diabetes mellitus type: type 2 Assessment/Plan: Resolved (11) Sepsis due to cellulitis Assessment/Plan: Resolved - Current Meds Current Meds: Current Medications Generic Name Dose Route Start Last Admin Trade Name Freq PRN Reason Stop Dose Admin Acetaminophen 650 mg 12/21/18 01:41 12/24/18 20:59 Tylenol PO 650 mg Q6HR PRN Administration Pain 1 to 4 Aspirin 81 mg 12/21/18 09:00 12/27/18 08:53 Ecotrin PO 81 mg DAILY SHANNAN Administration Atorvastatin Calcium 40 mg 12/21/18 21:00 12/26/18 21:09 Lipitor PO 40 mg QPM SHANNAN Administration Enoxaparin Sodium 40 mg 12/25/18 09:00 12/27/18 08:53 Lovenox SUBQ 40 mg DAILY SHANNAN Administration Furosemide 40 mg 12/23/18 09:00 12/27/18 08:51 Lasix PO 40 mg DAILY SHANNAN Administration Cefepime HCl 2 gm/ Sodium 100 mls @ 200 mls/hr 12/21/18 08:00 12/27/18 08:30 Chloride IV Infused Q12H SHANNAN Infusion Vancomycin HCl 1 gm/ Sodium 250 mls @ 250 mls/hr 12/25/18 21:00 12/27/18 11:00 Chloride IV Infused Q12H SHANNAN Infusion Insulin Aspart 3 - 11 unit 12/21/18 12:00 12/27/18 16:26 Novolog SUBQ 5 unit 0800,1200,1700,2100 SHANNAN Administration Protocol Insulin Aspart 28 unit 12/24/18 18:00 12/27/18 16:27 Novolog SUBQ 28 unit TIDWM SHANNAN Administration Insulin Human NPH 38 unit 12/24/18 21:00 12/27/18 08:51 Novolin N SUBQ 38 unit BID SHANNAN Administration Levothyroxine Sodium 112 mcg 12/21/18 07:00 12/27/18 06:08 Synthroid PO 112 mcg QDAC SHANNAN Administration Levothyroxine Sodium 75 mcg 12/21/18 07:00 12/27/18 06:08 Synthroid PO 75 mcg QDAC SHANNAN Administration Nystatin 1 applic 12/21/18 21:00 12/27/18 08:53 Nystop TOP 1 applic BID SHANNAN Administration Paroxetine HCl 40 mg 12/24/18 21:00 12/26/18 21:09 Paxil PO 40 mg QPM SHANNAN Administration Polyethylene Glycol 17 gm 12/24/18 09:00 12/27/18 08:57 Miralax PO Not Given DAILY SHANNAN Saccharomyces Boulardii 250 mg 12/23/18 17:00 12/27/18 16:27 Florastor PO 250 mg BIDWM SHANNAN Administration Sodium Chloride 10 ml 12/21/18 09:00 12/27/18 16:27 Normal Saline Flush 0.9% IVP 10 ml 0100,0900,1700 SHANNAN Administration Sodium Chloride 10 ml 12/21/18 01:41 12/26/18 20:05 Normal Saline Flush 0.9% IVP 10 ml PRN PRN Administration NEEDED PER PROVIDER ORDERS Spironolactone 25 mg 12/25/18 09:00 07/19/19 08:52 Aldactone PO 25 mg DAILY SHANNAN Administration - Lab Result Fish Bone Diagrams: 12/29/18 05:04 12/28/18 05:15 - Additional Planning My Orders: My Active Orders 12/26/18 19:07 Miscellaneous Laboratory Order [LAB] Urgent 12/27/18 13:14 Telemetry- [RC] Q4HR 12/28/18 05:00 BMP - BASIC METABOLIC PANEL [CHEM] DAILYLAB CBC - COMP BLD CT W/AUTO DIFF [HEME] DAILYLAB 12/29/18 05:00 CBC - COMP BLD CT W/AUTO DIFF [HEME] DAILYLAB Subjective - Subjective Patient Reports: Fatigue Nursing Reports: Other (She is much more somnolent today, reported by a new shakir se that is not taken care of her before.) Objective Vital Signs: Vital Signs - 24 hr 12/26/18 12/27/18 12/27/18 20:00 00:02 04:00 Temperature 37 C 36.7 C Heart Rate [ 75 79 78 Monitoring electrodes] Respiratory 23 15 15 Rate Blood Pressure [Left Brachial artery] Blood Pressure 151/57 H [Left Radial artery] Blood Pressure 166/71 H 149/55 H [Right Radial artery] O2 Saturation 95 95 99 12/27/18 12/27/18 12/27/18 04:17 08:06 12:00 Temperature 36.8 C 36.8 C Heart Rate [ 74 67 Monitoring electrodes] Respiratory 18 14 Rate Blood Pressure [Left Brachial artery] Blood Pressure [Left Radial artery] Blood Pressure 151/57 H 152/54 H [Right Radial artery] O2 Saturation 100 94 12/27/18 12/27/18 13:00 16:45 Temperature 35.8 C L Heart Rate [ 80 79 Monitoring electrodes] Respiratory 22 18 Rate Blood Pressure 159/51 H [Left Brachial artery] Blood Pressure [Left Radial artery] Blood Pressure [Right Radial artery] O2 Saturation 97 95 Oxygen O2 Source [Without Activity] Nasal cannula O2 Source Nasal cannula Oxygen Flow Rate 2 I&O (Last 24 Hrs): Intake and Output Totals x24h 12/25/18 12/26/18 12/27/18 23:59 23:59 23:59 Intake Total 2925 4275 930 Output Total 2138 2800 1650 Balance 787 1475 -720 General: Other (Lethargic) HEENT: Mucous membr. moist/pink Neck: Supple Neuro: Non Focal Cardiovascular: No murmurs Respiratory: No respiratory distress Abdomen: Soft, Other (Obese with pannus. The abdominal redness is more conflu ent) Extremities: Other (Trace to 1+ edema bilaterally) - Results Results: Laboratory Results WBC 16.0 x10^3/uL (4.8-10.8) H 12/26/18 09:10 RBC 3.27 10^6/uL (4.20-5.40) L 12/26/18 09:10 Hgb 9.8 g/dL (12.0-16.0) L 12/26/18 09:10 Hct 31.2 % (37.0-47.0) L 12/26/18 09:10 MCV 95.4 fL (81.0-99.0) 12/26/18 09:10 MCH 30.0 pg (27.0-31.0) 12/26/18 09:10 MCHC 31.4 g/dL (32.0-36.0) L 12/26/18 09:10 RDW 13.2 % (12.0-15.0) 12/26/18 09:10 Plt Count 325 10^3/uL (130-450) 12/26/18 09:10 MPV 9.3 fL (7.9-10.8) 12/26/18 09:10 Neut # (Auto) 7.9 10^3/uL (1.5-6.6) H 12/26/18 09:10 Lymph # (Auto) 3.1 10^3/uL (1.5-3.5) 12/26/18 09:10 [place] # (Auto) 1.5 10^3/uL (0.0-1.0) H 12/26/18 09:10 Eos # (Auto) 0.6 10^3/uL (0.0-0.7) 12/26/18 09:10 Baso # (Auto) 0.1 10^3/uL (0.0-0.1) 12/26/18 09:10 Absolute Nucleated RBC 0.05 x10^3/uL 12/26/18 09:10 Total Counted 100 12/24/18 04:25 Band Neuts % (Manual) Not Reportable 12/25/18 04:58 Abnorm Lymph % (Manual) Not Reportable 12/25/18 04:58 Nucleated RBC % 0.3 /100WBC 12/26/18 09:10 Neutrophils # (Manual) Not Reportable 12/25/18 04:58 Lymphocytes # (Manual) Not Reportable 12/25/18 04:58 Monocytes # (Manual) Not Reportable 12/25/18 04:58 Eosinophils # (Manual) Not Reportable 12/25/18 04:58 Basophils # (Manual) Not Reportable 12/25/18 04:58 Differential Comment MANUAL=AUTO DIFF 12/25/18 04:58 Manual Slide Review Indicated 12/20/18 22:20 WBC Morphology NORMAL APPEARANCE (NORMAL) 12/24/18 04:25 Platelet Estimate NORMAL (130-450,000) (NORMAL) 12/25/18 04:58 Platelet Morphology 1+ LARGE PLATELETS (NORMAL) 12/24/18 04:25 RBC Morph Micro Appear 1+ BASO STIPPLING (NORMAL) 1+ HYPOCHROMASIA (NORMAL) 12/24/18 04:25 RBC Morph Micro Appear NORMAL APPEARANCE (NORMAL) 12/25/18 04:58 VBG pH 7.295 (7.31-7.41) L 12/21/18 05:25 VBG pCO2 53.6 mmHg (41-51) H 12/21/18 05:25 VBG pO2 53.6 mmHg (25-47) H 12/21/18 05:25 VBG HCO3 25.5 mmol/L (23-28) 12/21/18 05:25 VBG Total CO2 27.1 mmol/L (24-29) 12/21/18 05:25 VBG O2 Saturation 86.8 % (60-80) H 12/21/18 05:25 VBG Base Excess -1.6 mmol/L (-2 - +2) 12/21/18 05:25 Sodium 138 mmol/L (135-145) 12/25/18 04:58 Potassium 4.2 mmol/L (3.5-5.0) 12/25/18 04:58 Chloride 100 mmol/L (101-111) L 12/25/18 04:58 Carbon Dioxide 29 mmol/L (21-32) 12/25/18 04:58 Anion Gap 9.0 (6-13) 12/25/18 04:58 BUN 17 mg/dL (6-20) 12/25/18 04:58 Creatinine 0.7 mg/dL (0.4-1.0) 12/25/18 04:58 Estimated GFR (MDRD) 80 (>89) L 12/25/18 04:58 Glucose 163 mg/dL (70-100) H 12/25/18 04:58 Glycated Hemoglobin 12.1 % (4.6-6.2) H 12/21/18 05:25 Estim Average Glucose 301 (70-100) H 12/21/18 05:25 Lactic Acid 1.4 mmol/L (0.5-2.2) 12/20/18 22:20 Calcium 8.8 mg/dL (8.5-10.3) 12/25/18 04:58 Phosphorus 2.0 mg/dL (2.5-4.6) L 12/25/18 04:58 Magnesium 1.9 mg/dL (1.7-2.8) 12/25/18 04:58 Iron 26 ug/dL (28-170) L 12/25/18 08:41 TIBC 231 ug/dL (250-450) L 12/25/18 08:41 % Saturation 11 % (20-50) L 12/25/18 08:41 Transferrin 165 mg/dL (192-382) L 12/25/18 08:41 Total Bilirubin 0.6 mg/dL (0.2-1.0) 12/22/18 04:45 Direct Bilirubin 0.4 mg/dL (0.1-0.5) 12/22/18 04:45 AST 51 IU/L (10-42) H 12/22/18 04:45 ALT 51 IU/L (10-60) 12/22/18 04:45 Alkaline Phosphatase 166 IU/L (42-121) H 12/22/18 04:45 Troponin I 0.04 ng/mL (<0.49) 12/21/18 14:20 Total Protein 6.8 g/dL (6.7-8.2) 12/22/18 04:45 Albumin 2.8 g/dL (3.2-5.5) L 12/22/18 04:45 Globulin 4.0 g/dL (2.1-4.2) 12/22/18 04:45 Albumin/Globulin Ratio 1.0 (1.0-2.2) 12/20/18 22:20 Lipase 30 U/L (22-51) 12/20/18 22:20 Vitamin B12 1638 pg/mL (180-914) H 12/25/18 04:58 Folate > 49.60 ng/mL (5.90 - >24.8) 12/25/18 04:58 Urine Color YELLOW 12/20/18 22:47 Urine Clarity CLEAR (CLEAR) 12/20/18 22:47 Urine pH 5.5 PH (5.0-7.5) 12/20/18 22:47 Ur Specific [place] 1.010 (1.002-1.030) 12/20/18 22:47 Urine Protein NEGATIVE mg/dL (NEGATIVE) 12/20/18 22:47 Urine Glucose (UA) >=1000 mg/dL (NEGATIVE) H 12/20/18 22:47 Urine Ketones 15 mg/dL (NEGATIVE) H 12/20/18 22:47 Urine Occult Blood TRACE-LYSE (NEGATIVE) 12/20/18 22:47 Urine Nitrite NEGATIVE (NEGATIVE) 12/20/18 22:47 Urine Bilirubin NEGATIVE (NEGATIVE) 12/20/18 22:47 Urine Urobilinogen 0.2 (NORMAL) E.U./dL (NORMAL) 12/20/18 22:47 Ur Leukocyte Esterase NEGATIVE (NEGATIVE) 12/20/18 22:47 Ur Microscopic Review NOT INDICATED 12/20/18 22:47 Urine Culture Comments NOT INDICATED 12/20/18 22:47 Nasal Screen MRSA (PCR) NEGATIVE (NEGATIVE) 12/21/18 02:50 Last Dose Date 12/26/18 12/27/18 09:15 Last Dose Time 222912/27/18 09:15 Vancomycin Trough 19.2 ug/mL (10.0-20.0) 12/27/18 09:15 Serum Ketones SMALL (NEGATIVE) H 12/20/18 22:20 Sepsis Event Note (H) - Evaluation Current Stage of Sepsis: Resolved Possible source of Sepsis: positive: Skin/soft tissue - Sepsis Criteria Sepsis Criteria: Recorded Heart Rate greater than 90 bpm, WBC count greater than 10% bands, WBC count greater than 12,000 or less than 4000
[2018-12-27] MEDS: PARoxetine 10 MG TABLET PO SCH (20:30)
[2018-12-27] MEDS: ATORVASTATIN 40 MG TABLET PO SCH (20:30)
[2018-12-28] MEDS: SODIUM CHLORIDE FLUSH 0.9% 10 ML SYRINGE IVP SCH ×4 (05:22→21:04)
[2018-12-28] MEDS: SODIUM CHLORIDE FLUSH 0.9% 10 ML SYRINGE IVP PRN ×3 (05:22→07:58)
[2018-12-28 05:36] LABS: BASOPHILS % (AUTO) 0.7 %; EOSINOPHILS % (AUTO) 4.2 %; HGB - HEMOGLOBIN 9.1 g/dL (12.0-16.0); LYMPHOCYTES % (AUTO) 20.7 %; MEAN CORPUSCULAR HGB CONC 30.1 g/dL (32.0-36.0); MEAN CORPUSCULAR VOLUME 96.2 fL (81.0-99.0); MEAN PLATELET VOLUME 8.9 fL (7.9-10.8); MONOCYTES % (AUTO) 10.7 %; NEUTROPHILS % (AUTO) 45.1 %; PLT - PLATELET COUNT 357 10^3/uL (130-450); RED BLOOD COUNT 3.14 10^6/uL (4.20-5.40); RED CELL DISTRIBUTION WIDTH 13.5 % (12.0-15.0); WHITE BLOOD COUNT 18.4 x10^3/uL (4.8-10.8)
[2018-12-28 05:44] LABS: ABNORMAL LYMPHS % (MANUAL) 0 %
[2018-12-28 05:45] LABS: CALCIUM 8.9 mg/dL (8.5-10.3); CREATININE 0.8 mg/dL (0.4-1.0)
[2018-12-28 06:08] LABS: BAND NEUTROPHILS % (MANUAL) 19 %; DIFFERENTIAL COMMENT MANUAL DIFFERENTIAL; EOSINOPHILS # (MANUAL) 1.1 10^3/uL (0-0.7); LYMPHOCYTES % (MANUAL) 22 %; METAMYELOCYTES % (MANUAL) 5 %; MONOCYTES # (MANUAL) 0.7 10^3/uL (0.0-1.0); MYELOCYTES % (MANUAL) 6 %; PLATELET ESTIMATE, MANUAL NORMAL (130-450,000) (NORMAL); RBC MORPHOLOGY (MULTIPLE) NORMAL APPEARANCE (NORMAL)
[2018-12-28] MEDS: LEVOTHYROXINE 75 MCG TABLET PO SCH (06:30)
[2018-12-28] MEDS: LEVOTHYROXINE 112 MCG TABLET PO SCH (06:30)
[2018-12-28] MEDS: CEFEPIME 2 GM in SODIUM CHLORIDE 0.9% MINIBAG 100 ML IV SCH ×2 (07:52→21:03)
[2018-12-28] MEDS: INSULIN ASPART 300 UNIT/3 ML PEN SUBQ SCH ×7 (07:59→21:12)
[2018-12-28] MEDS: SACCHAROMYCES BOULARDII 250 MG CAPSULE PO SCH ×2 (08:14→17:38)
[2018-12-28] MEDS: ENOXAPARIN 40 MG/0.4 ML SYRINGE SUBQ SCH (09:18)
[2018-12-28] MEDS: VANCOMYCIN INJ 1 GM in SODIUM CHLORIDE 0.9% 250 ML IV SCH ×2 (09:18→21:22)
[2018-12-28] MEDS: ASPIRIN EC 81 MG TABLET PO SCH (09:18)
[2018-12-28] MEDS: INSULIN NPH HUMAN 100 UNIT/1 ML 10 ML MDV SUBQ SCH ×2 (09:18→21:13)
[2018-12-28] MEDS: SPIRONOLACTONE 25 MG TABLET PO SCH (09:18)
[2018-12-28] MEDS: FUROSEMIDE 40 MG TABLET PO SCH (09:18)
[2018-12-28] MEDS: NYSTATIN POWDER 15 GM TOP SCH ×2 (09:19→21:13)
[2018-12-28] MEDS: POLYETHYLENE GLYCOL 3350 17 GM PACKET PO SCH (09:19)
[2018-12-28] MEDS: ACETAMINOPHEN 325 MG TABLET PO PRN (10:43)
--- NOTE | 2018-12-28 11:33 | PROVIDER PROGRESS NOTE ---
Assessment/Plan - Problem List (1) Cellulitis Qualifiers: Qualified Code(s): L03.311 - Cellulitis of abdominal wall Assessment/Plan: Clinically slowly improving, s/p I & D of a small abd wall abscess and 7 days of IV antibiotics; residual undrained purulent collections may still be present despite resolving erythema, tenderness, and better glucose control. Persistent elevated WBC and persistent localized induration concerning for same. Resistant organisms also possible explanation for slow healing, including MRSA. Exam is difficult due to morbid obesity. Rec: abscess wound care/see orders; repeat abd wall US today; Obtain results from I & D C&S; hopefully available later today. Will follow. - Current Meds Current Meds: Current Medications Generic Name Dose Route Start Last Admin Trade Name Freq PRN Reason Stop Dose Admin Acetaminophen 650 mg 12/21/18 01:41 12/28/18 10:43 Tylenol PO 650 mg Q6HR PRN Administration Pain 1 to 4 Aspirin 81 mg 12/21/18 09:00 12/28/18 09:18 Ecotrin PO 81 mg DAILY SHANNAN Administration Atorvastatin Calcium 40 mg 12/21/18 21:00 12/27/18 20:30 Lipitor PO 40 mg QPM SHANNAN Administration Enoxaparin Sodium 40 mg 12/25/18 09:00 12/28/18 09:18 Lovenox SUBQ 40 mg DAILY SHANNAN Administration Furosemide 40 mg 12/23/18 09:00 12/28/18 09:18 Lasix PO 40 mg DAILY SHANNAN Administration Cefepime HCl 2 gm/ Sodium 100 mls @ 200 mls/hr 12/21/18 08:00 12/28/18 08:22 Chloride IV Infused Q12H SHANNAN Infusion Vancomycin HCl 1 gm/ Sodium 250 mls @ 250 mls/hr 12/25/18 21:00 12/28/18 10:18 Chloride IV Infused Q12H SHANNAN Infusion Insulin Aspart 3 - 11 unit 12/21/18 12:00 12/28/18 08:00 Novolog SUBQ 3 unit 0800,1200,1700,2100 SHANNAN Administration Protocol Insulin Aspart 28 unit 12/24/18 18:00 12/28/18 07:59 Novolog SUBQ 28 unit TIDWM SHANNAN Administration Insulin Human NPH 38 unit 12/24/18 21:00 12/28/18 09:18 Novolin N SUBQ 38 unit BID SHANNAN Administration Levothyroxine Sodium 112 mcg 12/21/18 07:00 12/28/18 06:30 Synthroid PO 112 mcg QDAC SHANNAN Administration Levothyroxine Sodium 75 mcg 12/21/18 07:00 12/28/18 06:30 Synthroid PO 75 mcg QDAC SHANNAN Administration Nystatin 1 applic 12/21/18 21:00 12/28/18 09:19 Nystop TOP 1 applic BID SHANNAN Administration Paroxetine HCl 40 mg 12/24/18 21:00 12/27/18 20:30 Paxil PO 40 mg QPM SHANNAN Administration Polyethylene Glycol 17 gm 12/24/18 09:00 12/28/18 09:19 Miralax PO Not Given DAILY SHANNAN Saccharomyces Boulardii 250 mg 12/23/18 17:00 12/28/18 08:14 Florastor PO 250 mg BIDWM SHANNAN Administration Sodium Chloride 10 ml 12/21/18 09:00 12/28/18 07:58 Normal Saline Flush 0.9% IVP 10 ml 0100,0900,1700 SHANNAN Administration Sodium Chloride 10 ml 12/21/18 01:41 12/28/18 07:58 Normal Saline Flush 0.9% IVP 10 ml PRN PRN Administration NEEDED PER PROVIDER ORDERS Sodium Chloride 20 ml 12/28/18 01:27 12/28/18 07:58 Normal Saline Flush 0.9% IVP 20 ml PRN PRN Administration After Blood Draw Spironolactone 25 mg 12/25/18 09:00 12/28/18 09:18 Aldactone PO 25 mg DAILY SHANNAN Administration - Lab Result Lab results reviewed: Yes Fish Bone Diagrams: 12/28/18 05:15 12/28/18 05:15 Other Lab Results: I & D C & S from 06/28/18 not available at present (I called lab; they are checking with refernce lab...) - Additional Planning Condition/Complexity: Stable My Orders: My Active Orders 12/28/18 10:33 Abdomen Limited [US] Routine Plan Discussed with:: Patient, Other (hospitalist) Time Spent: 31-60 minutes Subjective - Subjective Patient Reports: Feeling Better, Resting Comfortably, No Complaints (feels more alert, denies pain at infection site) Objective Vital Signs: Vital Signs - 24 hr 12/27/18 12/27/18 12/27/18 12:00 13:00 16:45 Temperature 36.8 C 35.8 C L Heart Rate [ Brachial] Heart Rate [ 80 79 Monitoring electrodes] Respiratory 22 18 Rate Blood Pressure 159/51 H [Left Brachial artery] Blood Pressure [Left Radial artery] O2 Saturation 97 95 12/27/18 12/28/18 12/28/18 21:00 00:05 04:05 Temperature 36.2 C L 36.6 C 36.5 C Heart Rate [ 75 74 80 Brachial] Heart Rate [ Monitoring electrodes] Respiratory 18 20 20 Rate Blood Pressure 176/65 H [Left Brachial artery] Blood Pressure 152/61 H 122/42 L [Left Radial artery] O2 Saturation 97 95 95 12/28/18 07:51 Temperature 36.5 C Heart Rate [ Brachial] Heart Rate [ 79 Monitoring electrodes] Respiratory 18 Rate Blood Pressure 137/72 H [Left Brachial artery] Blood Pressure [Left Radial artery] O2 Saturation 97 Oxygen O2 Source [Without Activity] Nasal cannula O2 Source Nasal cannula Oxygen Flow Rate 2 I&O (Last 24 Hrs): Intake and Output Totals x24h 12/26/18 12/27/18 12/28/18 23:59 23:59 23:59 Intake Total 4275 1280 1313 Output Total 2800 2850 1100 Balance 1475 -1570 213 General: Alert, Oriented x3, Cooperative, No acute distress Abdomen: Soft, No tenderness, No masses, Other (erythema marked improved, down from 30+ cm diameter to 10 cm, with more localized induration lateral to I & D site but no fluctuance, crepitus, tenderness, cutaneous gangrene; packing removed from I & D site and tract probed with a q tip; extends directly deep to incision site 5 cm; no lateral tracking or large pocket identified; new dry gauze dressing applied.) - Results Results: Laboratory Results WBC 18.4 x10^3/uL (4.8-10.8) H 12/28/18 05:15 RBC 3.14 10^6/uL (4.20-5.40) L 12/28/18 05:15 Hgb 9.1 g/dL (12.0-16.0) L 12/28/18 05:15 Hct 30.2 % (37.0-47.0) L 12/28/18 05:15 MCV 96.2 fL (81.0-99.0) 12/28/18 05:15 MCH 29.0 pg (27.0-31.0) 12/28/18 05:15 MCHC 30.1 g/dL (32.0-36.0) L 12/28/18 05:15 RDW 13.5 % (12.0-15.0) 12/28/18 05:15 Plt Count 357 10^3/uL (130-450) 12/28/18 05:15 MPV 8.9 fL (7.9-10.8) 12/28/18 05:15 Neut # (Auto) Not Reportable 12/28/18 05:15 Lymph # (Auto) Not Reportable 12/28/18 05:15 [place] # (Auto) Not Reportable 12/28/18 05:15 Eos # (Auto) Not Reportable 12/28/18 05:15 Baso # (Auto) Not Reportable 12/28/18 05:15 Absolute Nucleated RBC Not Reportable 12/28/18 05:15 Total Counted 100 12/28/18 05:15 Band Neuts % (Manual) 19 % (0-10) H 12/28/18 05:15 Abnorm Lymph % (Manual) 0 % 12/28/18 05:15 Metamyelocytes % 5 % (-0) H 12/28/18 05:15 Myelocytes % 6 % (-0) H 12/28/18 05:15 Nucleated RBC % Not Reportable 12/28/18 05:15 Neutrophils # (Manual) 10.5 10^3/uL (1.5-6.6) H 12/28/18 05:15 Lymphocytes # (Manual) 4.0 10^3/uL (1.5-3.5) H 12/28/18 05:15 Monocytes # (Manual) 0.7 10^3/uL (0.0-1.0) 12/28/18 05:15 Eosinophils # (Manual) 1.1 10^3/uL (0-0.7) H 12/28/18 05:15 Basophils # (Manual) 0.0 10^3/uL (0-0.1) 12/28/18 05:15 Differential Comment MANUAL DIFFERENTIAL 12/28/18 05:15 Manual Slide Review Indicated 12/20/18 22:20 WBC Morphology NORMAL APPEARANCE (NORMAL) 12/24/18 04:25 Platelet Estimate NORMAL (130-450,000) (NORMAL) 12/28/18 05:15 Platelet Morphology 1+ LARGE PLATELETS (NORMAL) 12/24/18 04:25 RBC Morph Micro Appear NORMAL APPEARANCE (NORMAL) 12/25/18 04:58 RBC Morph Micro Appear NORMAL APPEARANCE (NORMAL) 12/28/18 05:15 VBG pH 7.295 (7.31-7.41) L 12/21/18 05:25 VBG pCO2 53.6 mmHg (41-51) H 12/21/18 05:25 VBG pO2 53.6 mmHg (25-47) H 12/21/18 05:25 VBG HCO3 25.5 mmol/L (23-28) 12/21/18 05:25 VBG Total CO2 27.1 mmol/L (24-29) 12/21/18 05:25 VBG O2 Saturation 86.8 % (60-80) H 12/21/18 05:25 VBG Base Excess -1.6 mmol/L (-2 - +2) 12/21/18 05:25 Sodium 138 mmol/L (135-145) 12/28/18 05:15 Potassium 4.4 mmol/L (3.5-5.0) 12/28/18 05:15 Chloride 95 mmol/L (101-111) L 12/28/18 05:15 Carbon Dioxide 33 mmol/L (21-32) H 12/28/18 05:15 Anion Gap 10.0 (6-13) 12/28/18 05:15 BUN 17 mg/dL (6-20) 12/28/18 05:15 Creatinine 0.8 mg/dL (0.4-1.0) 12/28/18 05:15 Estimated GFR (MDRD) 68 (>89) L 12/28/18 05:15 Glucose 163 mg/dL (70-100) H 12/28/18 05:15 Glycated Hemoglobin 12.1 % (4.6-6.2) H 12/21/18 05:25 Estim Average Glucose 301 (70-100) H 12/21/18 05:25 Lactic Acid 1.4 mmol/L (0.5-2.2) 12/20/18 22:20 Calcium 8.9 mg/dL (8.5-10.3) 12/28/18 05:15 Phosphorus 2.0 mg/dL (2.5-4.6) L 12/25/18 04:58 Magnesium 1.9 mg/dL (1.7-2.8) 12/25/18 04:58 Iron 26 ug/dL (28-170) L 12/25/18 08:41 TIBC 231 ug/dL (250-450) L 12/25/18 08:41 % Saturation 11 % (20-50) L 12/25/18 08:41 Transferrin 165 mg/dL (192-382) L 12/25/18 08:41 Total Bilirubin 0.6 mg/dL (0.2-1.0) 12/22/18 04:45 Direct Bilirubin 0.4 mg/dL (0.1-0.5) 12/22/18 04:45 AST 51 IU/L (10-42) H 12/22/18 04:45 ALT 51 IU/L (10-60) 12/22/18 04:45 Alkaline Phosphatase 166 IU/L (42-121) H 12/22/18 04:45 Troponin I 0.04 ng/mL (<0.49) 12/21/18 14:20 Total Protein 6.8 g/dL (6.7-8.2) 12/22/18 04:45 Albumin 2.8 g/dL (3.2-5.5) L 12/22/18 04:45 Globulin 4.0 g/dL (2.1-4.2) 12/22/18 04:45 Albumin/Globulin Ratio 1.0 (1.0-2.2) 12/20/18 22:20 Lipase 30 U/L (22-51) 12/20/18 22:20 Vitamin B12 1638 pg/mL (180-914) H 12/25/18 04:58 Folate > 49.60 ng/mL (5.90 - >24.8) 12/25/18 04:58 Urine Color YELLOW 12/20/18 22:47 Urine Clarity CLEAR (CLEAR) 12/20/18 22:47 Urine pH 5.5 PH (5.0-7.5) 12/20/18 22:47 Ur Specific [place] 1.010 (1.002-1.030) 12/20/18 22:47 Urine Protein NEGATIVE mg/dL (NEGATIVE) 12/20/18 22:47 Urine Glucose (UA) >=1000 mg/dL (NEGATIVE) H 12/20/18 22:47 Urine Ketones 15 mg/dL (NEGATIVE) H 12/20/18 22:47 Urine Occult Blood TRACE-LYSE (NEGATIVE) 12/20/18 22:47 Urine Nitrite NEGATIVE (NEGATIVE) 12/20/18 22:47 Urine Bilirubin NEGATIVE (NEGATIVE) 12/20/18 22:47 Urine Urobilinogen 0.2 (NORMAL) E.U./dL (NORMAL) 12/20/18 22:47 Ur Leukocyte Esterase NEGATIVE (NEGATIVE) 12/20/18 22:47 Ur Microscopic Review NOT INDICATED 12/20/18 22:47 Urine Culture Comments NOT INDICATED 12/20/18 22:47 Nasal Screen MRSA (PCR) NEGATIVE (NEGATIVE) 12/21/18 02:50 Last Dose Date 12/26/18 12/27/18 09:15 Last Dose Time 222912/27/18 09:15 Vancomycin Trough 19.2 ug/mL (10.0-20.0) 12/27/18 09:15 Serum Ketones SMALL (NEGATIVE) H 12/20/18 22:20 Sepsis Event Note (H) - Evaluation Current Stage of Sepsis: Resolved Possible source of Sepsis: positive: Skin/soft tissue - Sepsis Criteria Sepsis Criteria: Recorded Heart Rate greater than 90 bpm, WBC count greater than 10% bands, WBC count greater than 12,000 or less than 4000 ABX Reporting Has patient been on IV antibiotics over the past 48 hours?: Yes
[2018-12-28 13:23] LABS: BILIRUBIN,URINE NEGATIVE (NEGATIVE); GLUCOSE, URINE (UA) NEGATIVE (NEGATIVE); KETONES,URINE (UA) NEGATIVE (NEGATIVE); LEUKOCYTE ESTERASE, URINE NEGATIVE (NEGATIVE); NITRITE,URINE NEGATIVE (NEGATIVE); OCCULT BLOOD,URINE NEGATIVE (NEGATIVE); PROTEIN,URINE NEGATIVE (NEGATIVE); UROBILINOGEN,URINE 0.2 (NORMAL) E.U./dL (NORMAL)
[2018-12-28 13:26] LABS: CLARITY,URINE CLEAR (CLEAR)
[2018-12-28 13:29] LABS: BACTERIA,URINE Rare /HPF (None Seen); RBC,URINE None Seen /HPF (0-5); SQUAMOUS EPITHELIAL CELL,UR RARE Squamous (<= Few)
--- NOTE | 2018-12-28 14:58 | XRAY Report ---
Reason: Eval for pneumonia, rising WBC Procedure Date: 12/28/2018 Accession Number: [id number] / [id number] Procedure: XR - Chest 1 View X-Ray CPT Code: 65329 FULL RESULT: EXAM: CHEST RADIOGRAPHY EXAM DATE: 12/28/2018 12:44 PM. CLINICAL HISTORY: Eval for pneumonia, rising WBC. COMPARISON: CHEST FOR LINE PLACEMENT 12/24/2018 9:35 AM. TECHNIQUE: 1 view. FINDINGS: Lungs/Pleura: Increased mild vascular and interstitial prominence. Mild peribronchial thickening redemonstrated. No definite focal opacity/consolidation, pleural effusion or pneumothorax. Mediastinum: Within exam limitations, the cardiomediastinal contour is normal. Other: Right PICC catheter is without lamar change. IMPRESSION: Mild peribronchial thickening redemonstrated with increased mild vascular and interstitial prominence. No definite focal infiltrate/consolidation. RADIA
--- NOTE | 2018-12-28 16:10 | Ultrasound Report ---
Reason: reassess abd wall for additional abscesses, Procedure Date: 12/28/2018 Accession Number: [id number] / [id number] Procedure: US - Abdomen Limited CPT Code: FULL RESULT: EXAM: ABDOMEN ULTRASOUND LIMITED EXAM DATE: 12/28/2018 02:37 PM. CLINICAL HISTORY: Drain placed, with persistent induration and erythema. COMPARISON: ABDOMEN LIMITED 12/23/2018 9:20 PM. TECHNIQUE: Real-time scanning was performed with static images obtained. FINDINGS: Exam limited by bandaging over the draining wound. Echogenic fat and subcutaneous edema noted. Scanning obliquely deep to the bandaging demonstrates a 1.0 x 0.4 x 1.0 cm fluid collection. IMPRESSION: Echogenic fat and edema compatible with cellulitis, with small 1.0 x 0.4 x 1.0 cm fluid collection deep to the wound. [facility]
--- NOTE | 2018-12-28 16:37 | PROVIDER PROGRESS NOTE ---
Assessment/Plan - Problem List (1) Cellulitis Qualifiers: Site of cellulitis: trunk Site of cellulitis of trunk: abdominal wall Qualified Code(s): L03.311 - Cellulitis of abdominal wall Assessment/Plan: The ultrasound repeated today showed the wound that was incised and drained, had fluid at the bottom, however Dr. Tinajero said he ordered saline rinses of the wound. Continue IV antibiotics. Continue watching WBC daily. Surgery is following along with helpful, aggressive recommendations. for the wound and cellulitis. Await the aerobic and anaerobic cultures that were sent from the fluid removed from I&D. (2) Carbuncle Assessment/Plan: The patient thought she had a bug bite, when she felt this "bump" shortly after admission. Drainage was done several days ago. 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 Assessment/Plan: Continue with sliding scale insulin coverage plus carb controlled diet (4) Hypothyroidism Assessment/Plan: He is on her home thyroid replacement while here (5) Morbid obesity with BMI of 50.0-59.9, adult Assessment/Plan: Continue with carb controlled, calorie restricted diet (6) Anemia Qualifiers: Anemia type: iron deficiency Assessment/Plan: Iron replacement orally was started (7) Coronary artery disease Assessment/Plan: Stable (8) HFrEF (heart failure with reduced ejection fraction) Qualifiers: Heart failure chronicity: chronic Qualified Code(s): I50.22 - Chronic systolic (congestive) heart failure Assessment/Plan: Stable on mild diuretic and her prehospital medications (9) Depression with anxiety Assessment/Plan: She is on her home medications while here (10) Diabetic ketoacidosis Qualifiers: Diabetes mellitus type: type 2 Assessment/Plan: Resolved (11) Sepsis due to cellulitis Assessment/Plan: Resolved - Current Meds Current Meds: Current Medications Generic Name Dose Route Start Last Admin Trade Name Freq PRN Reason Stop Dose Admin Acetaminophen 650 mg 12/21/18 01:41 12/28/18 10:43 Tylenol PO 650 mg Q6HR PRN Administration Pain 1 to 4 Aspirin 81 mg 12/21/18 09:00 12/28/18 09:18 Ecotrin PO 81 mg DAILY SHANNAN Administration Atorvastatin Calcium 40 mg 12/21/18 21:00 12/27/18 20:30 Lipitor PO 40 mg QPM SHANNAN Administration Enoxaparin Sodium 40 mg 12/25/18 09:00 12/28/18 09:18 Lovenox SUBQ 40 mg DAILY SHANNAN Administration Furosemide 40 mg 12/23/18 09:00 12/28/18 09:18 Lasix PO 40 mg DAILY SHANNAN Administration Cefepime HCl 2 gm/ Sodium 100 mls @ 200 mls/hr 12/21/18 08:00 12/28/18 08:22 Chloride IV Infused Q12H SHANNAN Infusion Vancomycin HCl 1 gm/ Sodium 250 mls @ 250 mls/hr 12/25/18 21:00 12/28/18 10:1 8 Chloride IV Infused Q12H SHANNAN Infusion Insulin Aspart 3 - 11 unit 12/21/18 12:00 12/28/18 12:14 Novolog SUBQ 5 unit 0800,1200,1700,2100 SHANNAN Administration Protocol Insulin Aspart 28 unit 12/24/18 18:00 12/28/18 12:14 Novolog SUBQ 28 unit TIDWM SHANNAN Administration Insulin Human NPH 38 unit 12/24/18 21:00 12/28/18 09:18 Novolin N SUBQ 38 unit BID SHANNAN Administration Levothyroxine Sodium 112 mcg 12/21/18 07:00 12/28/18 06:30 Synthroid PO 112 mcg QDAC SHANNAN Administration Levothyroxine Sodium 75 mcg 12/21/18 07:00 12/28/18 06:30 Synthroid PO 75 mcg QDAC SHANNAN Administration Nystatin 1 applic 12/21/18 21:00 12/28/18 09:19 Nystop TOP 1 applic BID SHANNAN Administration Paroxetine HCl 40 mg 12/24/18 21:00 12/27/18 20:30 Paxil PO 40 mg QPM SHANNAN Administration Polyethylene Glycol 17 gm 12/24/18 09:00 12/28/18 09:19 Miralax PO Not Given DAILY SHANNAN Saccharomyces Boulardii 250 mg 12/23/18 17:00 12/28/18 08:14 Florastor PO 250 mg BIDWM SHANNAN Administration Sodium Chloride 10 ml 12/21/18 09:00 12/28/18 07:58 Normal Saline Flush 0.9% IVP 10 ml 0100,0900,1700 SHANNAN Administration Sodium Chloride 10 ml 12/21/18 01:41 12/28/18 07:58 Normal Saline Flush 0.9% IVP 10 ml PRN PRN Administration NEEDED PER PROVIDER ORDERS Sodium Chloride 20 ml 12/28/18 01:27 12/28/18 07:58 Normal Saline Flush 0.9% IVP 20 ml PRN PRN Administration After Blood Draw Spironolactone 25 mg 12/25/18 09:00 12/28/18 09:18 Aldactone PO 25 mg DAILY SHANNAN Administration - Lab Result Fish Bone Diagrams: 12/29/18 05:04 12/28/18 05:15 - Additional Planning My Orders: My Active Orders 12/28/18 01:27 Sodium Chloride Flush 0.9% [Normal Saline Flush 0.9%] 20 ml IVP PRN PRN 12/29/18 05:00 CBC - COMP BLD CT W/AUTO DIFF [HEME] DAILYLAB Subjective - Subjective Patient Reports: Feeling Better Objective Vital Signs: Vital Signs - 24 hr 12/27/18 12/27/18 12/28/18 16:45 21:00 00:05 Temperature 35.8 C L 36.2 C L 36.6 C Heart Rate [ 75 74 Brachial] Heart Rate [ 79 Monitoring electrodes] Respiratory 18 18 20 Rate Blood Pressure 159/51 H 176/65 H [Left Brachial artery] Blood Pressure 152/61 H [Left Radial artery] Blood Pressure [Right Radial artery] O2 Saturation 95 97 95 12/28/18 12/28/18 12/28/18 04:05 07:51 11:48 Temperature 36.5 C 36.5 C 36.6 C Heart Rate [ 80 75 Brachial] Heart Rate [ 79 Monitoring electrodes] Respiratory 20 18 20 Rate Blood Pressure 137/72 H [Left Brachial artery] Blood Pressure 122/42 L 159/90 H [Left Radial artery] Blood Pressure [Right Radial artery] O2 Saturation 95 97 96 12/28/18 15:57 Temperature 36.9 C Heart Rate [ 69 Brachial] Heart Rate [ Monitoring electrodes] Respiratory 20 Rate Blood Pressure [Left Brachial artery] Blood Pressure [Left Radial artery] Blood Pressure 118/47 L [Right Radial artery] O2 Saturation 95 Oxygen O2 Source [Without Activity] Nasal cannula O2 Source Nasal cannula Oxygen Flow Rate 2 I&O (Last 24 Hrs): Intake and Output Totals x24h 12/26/18 12/27/18 12/28/18 23:59 23:59 23:59 Intake Total 4275 1280 1673 Output Total 2800 2850 3900 Balance 1475 -1570 -2227 General: Alert, Oriented x3 HEENT: Mucous membr. moist/pink Neck: Supple Neuro: Non Focal Cardiovascular: No murmurs Respiratory: No respiratory distress, Breath sounds nml Abdomen: Soft, Other (The warm and indurated area is more focused. Surgery is following along after the incision and drainage, and the wound is packed.) Extremities: Other (Trace edema) - Results Results: Laboratory Results WBC 18.4 x10^3/uL (4.8-10.8) H 12/28/18 05:15 RBC 3.14 10^6/uL (4.20-5.40) L 12/28/18 05:15 Hgb 9.1 g/dL (12.0-16.0) L 12/28/18 05:15 Hct 30.2 % (37.0-47.0) L 12/28/18 05:15 MCV 96.2 fL (81.0-99.0) 12/28/18 05:15 MCH 29.0 pg (27.0-31.0) 12/28/18 05:15 MCHC 30.1 g/dL (32.0-36.0) L 12/28/18 05:15 RDW 13.5 % (12.0-15.0) 12/28/18 05:15 Plt Count 357 10^3/uL (130-450) 12/28/18 05:15 MPV 8.9 fL (7.9-10.8) 12/28/18 05:15 Neut # (Auto) Not Reportable 12/28/18 05:15 Lymph # (Auto) Not Reportable 12/28/18 05:15 [place] # (Auto) Not Reportable 12/28/18 05:15 Eos # (Auto) Not Reportable 12/28/18 05:15 Baso # (Auto) Not Reportable 12/28/18 05:15 Absolute Nucleated RBC Not Reportable 12/28/18 05:15 Total Counted 100 12/28/18 05:15 Band Neuts % (Manual) 19 % (0-10) H 12/28/18 05:15 Abnorm Lymph % (Manual) 0 % 12/28/18 05:15 Metamyelocytes % 5 % (-0) H 12/28/18 05:15 Myelocytes % 6 % (-0) H 12/28/18 05:15 Nucleated RBC % Not Reportable 12/28/18 05:15 Neutrophils # (Manual) 10.5 10^3/uL (1.5-6.6) H 12/28/18 05:15 Lymphocytes # (Manual) 4.0 10^3/uL (1.5-3.5) H 12/28/18 05:15 Monocytes # (Manual) 0.7 10^3/uL (0.0-1.0) 12/28/18 05:15 Eosinophils # (Manual) 1.1 10^3/uL (0-0.7) H 12/28/18 05:15 Basophils # (Manual) 0.0 10^3/uL (0-0.1) 12/28/18 05:15 Differential Comment MANUAL DIFFERENTIAL 12/28/18 05:15 Manual Slide Review Indicated 12/20/18 22:20 WBC Morphology NORMAL APPEARANCE (NORMAL) 12/24/18 04:25 Platelet Estimate NORMAL (130-450,000) (NORMAL) 12/28/18 05:15 Platelet Morphology 1+ LARGE PLATELETS (NORMAL) 12/24/18 04:25 RBC Morph Micro Appear NORMAL APPEARANCE (NORMAL) 12/25/18 04:58 RBC Morph Micro Appear NORMAL APPEARANCE (NORMAL) 12/28/18 05:15 VBG pH 7.295 (7.31-7.41) L 12/21/18 05:25 VBG pCO2 53.6 mmHg (41-51) H 12/21/18 05:25 VBG pO2 53.6 mmHg (25-47) H 12/21/18 05:25 VBG HCO3 25.5 mmol/L (23-28) 12/21/18 05:25 VBG Total CO2 27.1 mmol/L (24-29) 12/21/18 05:25 VBG O2 Saturation 86.8 % (60-80) H 12/21/18 05:25 VBG Base Excess -1.6 mmol/L (-2 - +2) 12/21/18 05:25 Sodium 138 mmol/L (135-145) 12/28/18 05:15 Potassium 4.4 mmol/L (3.5-5.0) 12/28/18 05:15 Chloride 95 mmol/L (101-111) L 12/28/18 05:15 Carbon Dioxide 33 mmol/L (21-32) H 12/28/18 05:15 Anion Gap 10.0 (6-13) 12/28/18 05:15 BUN 17 mg/dL (6-20) 12/28/18 05:15 Creatinine 0.8 mg/dL (0.4-1.0) 12/28/18 05:15 Estimated GFR (MDRD) 68 (>89) L 12/28/18 05:15 Glucose 163 mg/dL (70-100) H 12/28/18 05:15 Glycated Hemoglobin 12.1 % (4.6-6.2) H 12/21/18 05:25 Estim Average Glucose 301 (70-100) H 12/21/18 05:25 Lactic Acid 1.4 mmol/L (0.5-2.2) 12/20/18 22:20 Calcium 8.9 mg/dL (8.5-10.3) 12/28/18 05:15 Phosphorus 2.0 mg/dL (2.5-4.6) L 12/25/18 04:58 Magnesium 1.9 mg/dL (1.7-2.8) 12/25/18 04:58 Iron 26 ug/dL (28-170) L 12/25/18 08:41 TIBC 231 ug/dL (250-450) L 12/25/18 08:41 % Saturation 11 % (20-50) L 12/25/18 08:41 Transferrin 165 mg/dL (192-382) L 12/25/18 08:41 Total Bilirubin 0.6 mg/dL (0.2-1.0) 12/22/18 04:45 Direct Bilirubin 0.4 mg/dL (0.1-0.5) 12/22/18 04:45 AST 51 IU/L (10-42) H 12/22/18 04:45 ALT 51 IU/L (10-60) 12/22/18 04:45 Alkaline Phosphatase 166 IU/L (42-121) H 12/22/18 04:45 Troponin I 0.04 ng/mL (<0.49) 12/21/18 14:20 Total Protein 6.8 g/dL (6.7-8.2) 12/22/18 04:45 Albumin 2.8 g/dL (3.2-5.5) L 12/22/18 04:45 Globulin 4.0 g/dL (2.1-4.2) 12/22/18 04:45 Albumin/Globulin Ratio 1.0 (1.0-2.2) 12/20/18 22:20 Lipase 30 U/L (22-51) 12/20/18 22:20 Vitamin B12 1638 pg/mL (180-914) H 12/25/18 04:58 Folate > 49.60 ng/mL (5.90 - >24.8) 12/25/18 04:58 Urine Color LT. YELLOW 12/28/18 13:12 Urine Clarity CLEAR (CLEAR) 12/28/18 13:12 Urine pH 6.0 PH (5.0-7.5) 12/28/18 13:12 Ur Specific [place] <=1.005 (1.002-1.030) 12/28/18 13:12 Urine Protein NEGATIVE mg/dL (NEGATIVE) 12/28/18 13:12 Urine Glucose (UA) NEGATIVE mg/dL (NEGATIVE) 12/28/18 13:12 Urine Ketones NEGATIVE mg/dL (NEGATIVE) 12/28/18 13:12 Urine Occult Blood NEGATIVE (NEGATIVE) 12/28/18 13:12 Urine Nitrite NEGATIVE (NEGATIVE) 12/28/18 13:12 Urine Bilirubin NEGATIVE (NEGATIVE) 12/28/18 13:12 Urine Urobilinogen 0.2 (NORMAL) E.U./dL (NORMAL) 12/28/18 13:12 Ur Leukocyte Esterase NEGATIVE (NEGATIVE) 12/28/18 13:12 Urine RBC None Seen /HPF (0-5) 12/28/18 13:12 Urine WBC 0-3 /HPF (0-5) 12/28/18 13:12 Ur Squamous Epith Cells RARE Squamous (<= Few) 12/28/18 13:12 Urine Bacteria Rare /HPF (None Seen) 12/28/18 13:12 Ur Microscopic Review NOT INDICATED 12/20/18 22:47 Urine Culture Comments NOT INDICATED 12/28/18 13:12 Nasal Screen MRSA (PCR) NEGATIVE (NEGATIVE) 12/21/18 02:50 Last Dose Date 12/26/18 12/27/18 09:15 Last Dose Time 222912/27/18 09:15 Vancomycin Trough 19.2 ug/mL (10.0-20.0) 12/27/18 09:15 Serum Ketones SMALL (NEGATIVE) H 12/20/18 22:20 Sepsis Event Note (H) - Evaluation Current Stage of Sepsis: Resolved Possible source of Sepsis: positive: Skin/soft tissue - Sepsis Criteria Sepsis Criteria: Recorded Heart Rate greater than 90 bpm, WBC count greater than 10% bands, WBC count greater than 12,000 or less than 4000
[2018-12-28] MEDS: ATORVASTATIN 40 MG TABLET PO SCH (21:11)
[2018-12-28] MEDS: PARoxetine 10 MG TABLET PO SCH (21:11)
[2018-12-29 05:15] LABS: BASOPHILS % (AUTO) 0.8 %; EOSINOPHILS % (AUTO) 3.8 %; HGB - HEMOGLOBIN 9.7 g/dL (12.0-16.0); LYMPHOCYTES % (AUTO) 22.7 %; MEAN CORPUSCULAR HGB CONC 30.2 g/dL (32.0-36.0); MEAN CORPUSCULAR VOLUME 96.1 fL (81.0-99.0); MEAN PLATELET VOLUME 8.9 fL (7.9-10.8); MONOCYTES % (AUTO) 8.6 %; NEUTROPHILS % (AUTO) 48.2 %; PLT - PLATELET COUNT 392 10^3/uL (130-450); RED BLOOD COUNT 3.34 10^6/uL (4.20-5.40); RED CELL DISTRIBUTION WIDTH 13.3 % (12.0-15.0); WHITE BLOOD COUNT 20.4 x10^3/uL (4.8-10.8)
[2018-12-29 05:33] LABS: ABNORMAL LYMPHS % (MANUAL) 0 %
[2018-12-29 06:04] LABS: BAND NEUTROPHILS % (MANUAL) 7 %; BASOPHILS # (MANUAL) 0.2 10^3/uL (0-0.1); BASOPHILS % (MANUAL) 1 %; DIFFERENTIAL COMMENT MANUAL DIFFERENTIAL; EOSINOPHILS # (MANUAL) 0.6 10^3/uL (0-0.7); LYMPHOCYTES # (MANUAL) 3.9 10^3/uL (1.5-3.5); LYMPHOCYTES % (MANUAL) 19 %; METAMYELOCYTES % (MANUAL) 7 %; MYELOCYTES % (MANUAL) 7 %; PLATELET ESTIMATE, MANUAL NORMAL (130-450,000) (NORMAL); RBC MORPHOLOGY (MULTIPLE) NORMAL APPEARANCE (NORMAL)
[2018-12-29] MEDS: LEVOTHYROXINE 112 MCG TABLET PO SCH (06:31)
[2018-12-29] MEDS: LEVOTHYROXINE 75 MCG TABLET PO SCH (06:31)
[2018-12-29] MEDS: CEFEPIME 2 GM in SODIUM CHLORIDE 0.9% MINIBAG 100 ML IV SCH (08:05)
[2018-12-29] MEDS: SACCHAROMYCES BOULARDII 250 MG CAPSULE PO SCH ×2 (08:10→18:13)
[2018-12-29] MEDS: SODIUM CHLORIDE FLUSH 0.9% 10 ML SYRINGE IVP PRN (08:10)
[2018-12-29] MEDS: SODIUM CHLORIDE FLUSH 0.9% 10 ML SYRINGE IVP SCH ×2 (08:10→18:20)
[2018-12-29] MEDS: INSULIN ASPART 300 UNIT/3 ML PEN SUBQ SCH ×4 (08:11→17:09)
[2018-12-29] MEDS: VANCOMYCIN INJ 1 GM in SODIUM CHLORIDE 0.9% 250 ML IV SCH ×2 (09:02→20:39)
--- NOTE | 2018-12-29 09:57 | PROVIDER PROGRESS NOTE ---
Assessment/Plan - Problem List (1) Cellulitis Qualifiers: Site of cellulitis: trunk Site of cellulitis of trunk: abdominal wall Qualified Code(s): L03.311 - Cellulitis of abdominal wall Assessment/Plan: Area of infection in ant abd wall appears more localized, ? becoming necrotic. Despite overall clinical improvement and neg abd us yesterday, the exam and marked leukocytosis are concerning for necrotic tissue/undrained pus. GM stain suggests Staph, possibly MRSA. Rec: to OR for exploration of abd wall, I & D, debridement as appropriate. PAR conf with pt who agrees. Discussed with hospitalists, who also are in agreement. - Current Meds Current Meds: Current Medications Generic Name Dose Route Start Last Admin Trade Name Freq PRN Reason Stop Dose Admin Acetaminophen 650 mg 12/21/18 01:41 12/28/18 10:43 Tylenol PO 650 mg Q6HR PRN Administration Pain 1 to 4 Aspirin 81 mg 12/21/18 09:00 12/28/18 09:18 Ecotrin PO 81 mg DAILY SHANNAN Administration Atorvastatin Calcium 40 mg 12/21/18 21:00 12/28/18 21:11 Lipitor PO 40 mg QPM SHANNAN Administration Enoxaparin Sodium 40 mg 12/25/18 09:00 12/28/18 09:18 Lovenox SUBQ 40 mg DAILY SHANNAN Administration Furosemide 40 mg 12/23/18 09:00 12/28/18 09:18 Lasix PO 40 mg DAILY SHANNAN Administration Cefepime HCl 2 gm/ Sodium 100 mls @ 200 mls/hr 12/21/18 08:00 12/29/18 08:05 Chloride IV 200 mls/hr Q12H SHANNAN Administration Vancomycin HCl 1 gm/ Sodium 250 mls @ 250 mls/hr 12/25/18 21:00 12/29/18 09:02 Chloride IV 250 mls/hr Q12H SHANNAN Administration Insulin Aspart 3 - 11 unit 12/21/18 12:00 12/29/18 08:11 Novolog SUBQ Not Given 0800,1200,1700,2100 [facility] Protocol Insulin Aspart 28 unit 12/24/18 18:00 12/29/18 08:11 Novolog SUBQ 28 unit TIDWM SHANNAN Administration Insulin Human NPH 38 unit 12/24/18 21:00 12/28/18 21:13 Novolin N SUBQ 38 unit BID SHANNAN Administration Levothyroxine Sodium 112 mcg 12/21/18 07:00 12/29/18 06:31 Synthroid PO 112 mcg QDAC SHANNAN Administration Levothyroxine Sodium 75 mcg 12/21/18 07:00 12/29/18 06:31 Synthroid PO 75 mcg QDAC SHANNAN Administration Nystatin 1 applic 12/21/18 21:00 12/28/18 21:13 Nystop TOP 1 applic BID SHANNAN Administration Paroxetine HCl 40 mg 12/24/18 21:00 12/28/18 21:11 Paxil PO 40 mg QPM SHANNAN Administration Polyethylene Glycol 17 gm 12/24/18 09:00 12/28/18 09:19 Miralax PO Not Given DAILY SHANNAN Saccharomyces Boulardii 250 mg 12/23/18 17:00 12/29/18 08:10 Florastor PO 250 mg BIDWM SHANNAN Administration Sodium Chloride 10 ml 12/21/18 09:00 12/29/18 08:10 Normal Saline Flush 0.9% IVP 10 ml 0100,0900,1700 SHANNAN Administration Sodium Chloride 10 ml 12/21/18 01:41 12/29/18 08:10 Normal Saline Flush 0.9% IVP 10 ml PRN PRN Administration NEEDED PER PROVIDER ORDERS Sodium Chloride 20 ml 12/28/18 01:27 12/28/18 07:58 Normal Saline Flush 0.9% IVP 20 ml PRN PRN Administration After Blood Draw Spironolactone 25 mg 12/25/18 09:00 12/28/18 09:18 Aldactone PO 25 mg DAILY SHANNAN Administration - Lab Result Fish Bone Diagrams: 12/29/18 05:04 12/28/18 05:15 Other Lab Results: Gm stain from I & D 12/27: many WBC; mod GPC in clusters; ID and S still pending. - Diagnostic Imaging Results Diagnostic Imaging Results: Final report reviewed Diagnostic Imaging Results Comments: US abd yest showed a solitary 10 mm fluid collection at base of old I & D tract (wound is being irrigated q shift); no other evidence of abscess formation. - Additional Planning Condition/Complexity: Stable (but evolving) My Orders: My Active Orders 12/28/18 11:44 Miscellaenous Nursing Order [RC] QSHIFT 12/29/18 08:59 NPO except Meds [DIET] Plan Discussed with:: Patient, Other (hospitalist) Time Spent: 31-60 minutes Subjective - Subjective Patient Reports: Feeling Better, Resting Comfortably, No Complaints, Abdominal Pain (minimal discomfort with movement) Objective Vital Signs: Vital Signs - 24 hr 12/28/18 12/28/18 12/28/18 11:48 15:57 21:00 Temperature 36.6 C 36.9 C 36.7 C Heart Rate 71 Heart Rate [ 75 69 71 Brachial] Respiratory 20 20 18 Rate Blood Pressure 159/90 H [Left Radial artery] Blood Pressure 118/47 L 168/55 H [Right Radial artery] O2 Saturation 96 95 95 12/29/18 12/29/18 00:20 04:34 Temperature 36.9 C 36.5 C Heart Rate Heart Rate [ 70 75 Brachial] Respiratory 20 20 Rate Blood Pressure 165/66 H [Left Radial artery] Blood Pressure 145/31 H [Right Radial artery] O2 Saturation 97 93 Oxygen O2 Source [Without Activity] Nasal cannula O2 Source Nasal cannula Oxygen Flow Rate 2 I&O (Last 24 Hrs): Intake and Output Totals x24h 12/27/18 12/28/18 12/29/18 23:59 23:59 23:59 Intake Total 1280 2323 200 Output Total 2850 4300 900 Balance -1570 General: Alert, Oriented x3, Cooperative Neck: No JVD Neuro: Alert Cardiovascular: Regular rate, Normal S1, Normal S2, No murmurs Respiratory: Chest non-tender, No respiratory distress, Breath sounds nml, Other (diminished in bases) Abdomen: Other (localized area of erythema and increasing induration(10cm in diameter) in RUQ, now with new purplish discoloration and mild tenderness medial to I & D site, tract explored, does not appear to extend laterally to area of concern; no fluctuance or crepitus. abd very obese, ow benign) Extremities: No edema, No tenderness/swelling Comments/Notes: Pt up in chair, NAD, eating and moving without apparent discomfort. - Results Results: Laboratory Results WBC 20.4 x10^3/uL (4.8-10.8) H 12/29/18 05:04 RBC 3.34 10^6/uL (4.20-5.40) L 12/29/18 05:04 Hgb 9.7 g/dL (12.0-16.0) L 12/29/18 05:04 Hct 32.1 % (37.0-47.0) L 12/29/18 05:04 MCV 96.1 fL (81.0-99.0) 12/29/18 05:04 MCH 29.0 pg (27.0-31.0) 12/29/18 05:04 MCHC 30.2 g/dL (32.0-36.0) L 12/29/18 05:04 RDW 13.3 % (12.0-15.0) 12/29/18 05:04 Plt Count 392 10^3/uL (130-450) 12/29/18 05:04 MPV 8.9 fL (7.9-10.8) 12/29/18 05:04 Neut # (Auto) Not Reportable 12/29/18 05:04 Lymph # (Auto) Not Reportable 12/29/18 05:04 [place] # (Auto) Not Reportable 12/29/18 05:04 Eos # (Auto) Not Reportable 12/29/18 05:04 Baso # (Auto) Not Reportable 12/29/18 05:04 Absolute Nucleated RBC Not Reportable 12/29/18 05:04 Total Counted 100 12/29/18 05:04 Band Neuts % (Manual) 7 % (0-10) 12/29/18 05:04 Abnorm Lymph % (Manual) 0 % 12/29/18 05:04 Metamyelocytes % 7 % (-0) H 12/29/18 05:04 Myelocytes % 7 % (-0) H 12/29/18 05:04 Nucleated RBC % Not Reportable 12/29/18 05:04 Neutrophils # (Manual) 11.8 10^3/uL (1.5-6.6) H 12/29/18 05:04 Lymphocytes # (Manual) 3.9 10^3/uL (1.5-3.5) H 12/29/18 05:04 Monocytes # (Manual) 1.0 10^3/uL (0.0-1.0) 12/29/18 05:04 Eosinophils # (Manual) 0.6 10^3/uL (0-0.7) 12/29/18 05:04 Basophils # (Manual) 0.2 10^3/uL (0-0.1) H 12/29/18 05:04 Differential Comment MANUAL DIFFERENTIAL 12/29/18 05:04 Manual Slide Review Indicated 12/20/18 22:20 WBC Morphology NORMAL APPEARANCE (NORMAL) 12/24/18 04:25 Platelet Estimate NORMAL (130-450,000) (NORMAL) 12/29/18 05:04 Platelet Morphology 1+ LARGE PLATELETS (NORMAL) 12/24/18 04:25 RBC Morph Micro Appear NORMAL APPEARANCE (NORMAL) 12/28/18 05:15 RBC Morph Micro Appear NORMAL APPEARANCE (NORMAL) 12/29/18 05:04 VBG pH 7.295 (7.31-7.41) L 12/21/18 05:25 VBG pCO2 53.6 mmHg (41-51) H 12/21/18 05:25 VBG pO2 53.6 mmHg (25-47) H 12/21/18 05:25 VBG HCO3 25.5 mmol/L (23-28) 12/21/18 05:25 VBG Total CO2 27.1 mmol/L (24-29) 12/21/18 05:25 VBG O2 Saturation 86.8 % (60-80) H 12/21/18 05:25 VBG Base Excess -1.6 mmol/L (-2 - +2) 12/21/18 05:25 Sodium 138 mmol/L (135-145) 12/28/18 05:15 Potassium 4.4 mmol/L (3.5-5.0) 12/28/18 05:15 Chloride 95 mmol/L (101-111) L 12/28/18 05:15 Carbon Dioxide 33 mmol/L (21-32) H 12/28/18 05:15 Anion Gap 10.0 (6-13) 12/28/18 05:15 BUN 17 mg/dL (6-20) 12/28/18 05:15 Creatinine 0.8 mg/dL (0.4-1.0) 12/28/18 05:15 Estimated GFR (MDRD) 68 (>89) L 12/28/18 05:15 Glucose 163 mg/dL (70-100) H 12/28/18 05:15 Glycated Hemoglobin 12.1 % (4.6-6.2) H 12/21/18 05:25 Estim Average Glucose 301 (70-100) H 12/21/18 05:25 Lactic Acid 1.4 mmol/L (0.5-2.2) 12/20/18 22:20 Calcium 8.9 mg/dL (8.5-10.3) 12/28/18 05:15 Phosphorus 2.0 mg/dL (2.5-4.6) L 12/25/18 04:58 Magnesium 1.9 mg/dL (1.7-2.8) 12/25/18 04:58 Iron 26 ug/dL (28-170) L 12/25/18 08:41 TIBC 231 ug/dL (250-450) L 12/25/18 08:41 % Saturation 11 % (20-50) L 12/25/18 08:41 Transferrin 165 mg/dL (192-382) L 12/25/18 08:41 Total Bilirubin 0.6 mg/dL (0.2-1.0) 12/22/18 04:45 Direct Bilirubin 0.4 mg/dL (0.1-0.5) 12/22/18 04:45 AST 51 IU/L (10-42) H 12/22/18 04:45 ALT 51 IU/L (10-60) 12/22/18 04:45 Alkaline Phosphatase 166 IU/L (42-121) H 12/22/18 04:45 Troponin I 0.04 ng/mL (<0.49) 12/21/18 14:20 Total Protein 6.8 g/dL (6.7-8.2) 12/22/18 04:45 Albumin 2.8 g/dL (3.2-5.5) L 12/22/18 04:45 Globulin 4.0 g/dL (2.1-4.2) 12/22/18 04:45 Albumin/Globulin Ratio 1.0 (1.0-2.2) 12/20/18 22:20 Lipase 30 U/L (22-51) 12/20/18 22:20 Vitamin B12 1638 pg/mL (180-914) H 12/25/18 04:58 Folate > 49.60 ng/mL (5.90 - >24.8) 12/25/18 04:58 Urine Color LT. YELLOW 12/28/18 13:12 Urine Clarity CLEAR (CLEAR) 12/28/18 13:12 Urine pH 6.0 PH (5.0-7.5) 12/28/18 13:12 Ur Specific [place] <=1.005 (1.002-1.030) 12/28/18 13:12 Urine Protein NEGATIVE mg/dL (NEGATIVE) 12/28/18 13:12 Urine Glucose (UA) NEGATIVE mg/dL (NEGATIVE) 12/28/18 13:12 Urine Ketones NEGATIVE mg/dL (NEGATIVE) 12/28/18 13:12 Urine Occult Blood NEGATIVE (NEGATIVE) 12/28/18 13:12 Urine Nitrite NEGATIVE (NEGATIVE) 12/28/18 13:12 Urine Bilirubin NEGATIVE (NEGATIVE) 12/28/18 13:12 Urine Urobilinogen 0.2 (NORMAL) E.U./dL (NORMAL) 12/28/18 13:12 Ur Leukocyte Esterase NEGATIVE (NEGATIVE) 12/28/18 13:12 Urine RBC None Seen /HPF (0-5) 12/28/18 13:12 Urine WBC 0-3 /HPF (0-5) 12/28/18 13:12 Ur Squamous Epith Cells RARE Squamous (<= Few) 12/28/18 13:12 Urine Bacteria Rare /HPF (None Seen) 12/28/18 13:12 Ur Microscopic Review NOT INDICATED 12/20/18 22:47 Urine Culture Comments NOT INDICATED 12/28/18 13:12 Nasal Screen MRSA (PCR) NEGATIVE (NEGATIVE) 12/21/18 02:50 Last Dose Date 12/26/18 12/27/18 09:15 Last Dose Time 2230 12/27/18 09:15 Vancomycin Trough 19.2 ug/mL (10.0-20.0) 12/27/18 09:15 Serum Ketones SMALL (NEGATIVE) H 12/20/18 22:20 Sepsis Event Note (H) - Evaluation Current Stage of Sepsis: Resolved Possible source of Sepsis: positive: Skin/soft tissue - Sepsis Criteria Sepsis Criteria: Recorded Heart Rate greater than 90 bpm, WBC count greater than 10% bands, WBC count greater than 12,000 or less than 4000 ABX Reporting Has patient been on IV antibiotics over the past 48 hours?: Yes
--- NOTE | 2018-12-29 10:27 | ANESTHESIA ---
Pre-Anesthesia VS, & Labs - Diagnosis Diagnosis Soft tissue infection of abdominal wall, slowly improving, appears to be cellulitis; no evidence of abscess or necrotizing infection at this time. Does not have an appearance typical for MRSA, but slow healing is certainly consistent with same. - Procedure I&D abdominal wall abscess Vital Signs: Temp Pulse Resp BP Pulse Ox 36.5 C 75 20 145/31 H 93 12/29/18 04:34 12/29/18 04:34 12/29/18 04:34 12/29/18 04:34 12/29/18 04:34 Height 5 ft 8 in Weight (kg) 158 kg Body Mass Index 50.1 - NPO Last Food Intake: 829 - Is Patient ?: No - Lab Results Current Lab Results: Laboratory Tests 12/29/18 05:04: WBC 20.4 H, RBC 3.34 L, Hgb 9.7 L, Hct 32.1 L, MCV 96.1, MCH 29.0, MCHC 30.2 L, RDW 13.3, Plt Count 392, MPV 8.9, Neut # (Auto) Not Reportable, Lymph # (Auto) Not Reportable, [place] # (Auto) Not Reportable, Eos # (Auto) Not Reportable, Baso # (Auto) Not Reportable, Absolute Nucleated RBC Not Reportable, Total Counted 100, Band Neuts % (Manual) 7, Abnorm Lymph % (Manual) 0, Metamyelocytes % 7 H, Myelocytes % 7 H, Nucleated RBC % Not Reportable, Neutrophils # (Manual) 11.8 H, Lymphocytes # (Manual) 3.9 H, Monocytes # (Manual) 1.0, Eosinophils # (Manual) 0.6, Basophils # (Manual) 0.2 H, Dif ferential Comment MANUAL DIFFERENTIAL, Platelet Estimate NORMAL (130-450,000), RBC Morph Micro Appear NORMAL APPEARANCE 12/28/18 05:15: WBC 18.4 H, RBC 3.14 L, Hgb 9.1 L, Hct 30.2 L, MCV 96.2, MCH 29. 0, MCHC 30.1 L, RDW 13.5, Plt Count 357, MPV 8.9, Neut # (Auto) Not Reportable, Lymph # (Auto) Not Reportable, [place] # (Auto) Not Reportable, Eos # (Auto) Not Reportable, Baso # (Auto) Not Reportable, Absolute Nucleated RBC Not Reportable, Total Counted 100, Band Neuts % (Manual) 19 H, Abnorm Lymph % (Manual) 0, Metamyelocytes % 5 H, Myelocytes % 6 H, Nucleated RBC % Not Reportable, Ne utrophils # (Manual) 10.5 H, Lymphocytes # (Manual) 4.0 H, Monocytes # (Manual) 0.7, Eosinophils # (Manual) 1.1 H, Basophils # (Manual) 0.0, Differential Comment MANUAL DIFFERENTIAL, Platelet Estimate NORMAL (130-450,000), RBC Morph Micro Appear NORMAL APPEARANCE 12/28/18 05:15: Sodium 138, Potassium 4.4, Chloride 95 L, Carbon Dioxide 33 H, Anion Gap 10.0, BUN 17, Creatinine 0.8, Estimated GFR (MDRD) 68 L, Glucose 163 H , Calcium 8.9 12/27/18 09:15: Last Dose Date 12/26/18, Last Dose Time 2230, Vancomycin Trough 19.2 12/26/18 09:10: WBC 16.0 H, RBC 3.27 L, Hgb 9.8 L, Hct 31.2 L, MCV 95.4, MCH 30.0, MCHC 31.4 L, RDW 13.2, Plt Count 325, MPV 9.3, Neut # (Auto) 7.9 H, Lymph # (Auto) 3.1, [place] # (Auto) 1.5 H, Eos # (Auto) 0.6, Baso # (Auto) 0.1, Absolute Nucleated RBC 0.05, Nucleated RBC % 0.3 12/25/18 08:41: Iron 26 L, TIBC 231 L, % Saturation 11 L, Transferrin 165 L, Last Dose Date 12/24/18, Last Dose Time 2305, Vancomycin Trough 22.6 H 12/25/18 04:58: Vitamin B12 1638 H, Folate > 49.60 12/25/18 04:58: Sodium 138, Potassium 4.2, Chloride 100 L, Carbon Dioxide 29, Anion Gap 9.0, BUN 17, Creatinine 0.7, Estimated GFR (MDRD) 80 L, Glucose 163 H, Calcium 8.8, Phosphorus 2.0 L, Magnesium 1.9 12/25/18 04:58: WBC 15.2 H, RBC 3.17 L, Hgb 9.7 L, Hct 30.0 L, MCV 94.6, MCH 30.6, MCHC 32.3, RDW 13.0, Plt Count 297, MPV 9.2, Neut # (Auto) 8.9 H, Lymph # (Auto) 2.7, [place] # (Auto) 1.8 H, Eos # (Auto) 0.6, Baso # (Auto) 0.1, Absolute Nucleated RBC 0.03, Band Neuts % (Manual) Not Reportable, Abnorm Lymph % (Ma nual) Not Reportable, Nucleated RBC % 0.2, Neutrophils # (Manual) Not Reportable, Lymphocytes # (Manual) Not Reportable, Monocytes # (Manual) Not Reportable, Eosinophils # (Manual) Not Reportable, Basophils # (Manual) Not Reportable, Differential Comment MANUAL=AUTO DIFF, Platelet Estimate NORMAL (1 30-450,000), RBC Morph Micro Appear NORMAL APPEARANCE 12/24/18 04:25: Sodium 136, Potassium 4.5, Chloride 99 L, Carbon Dioxide 27, Anion Gap 10.0, BUN 18, Creatinine 0.7, Estimated GFR (MDRD) 80 L, Glucose 276 H , Calcium 9.0, Phosphorus 1.8 L, Magnesium 1.9 12/24/18 04:25: WBC 16.2 H, RBC 3.35 L, Hgb 9.9 L, Hct 31.9 L, MCV 95.2, MCH 29.6, MCHC 31.0 L, RDW 13.0, Plt Count 305, MPV 9.2, Neut # (Auto) Not Reportable, Lymph # (Auto) Not Reportable, [place] # (Auto) Not Reportable, Eos # (Auto) Not Reportable, Baso # (Auto) Not Reportable, Absolute Nucleated RBC Not Reportable, Total Counted 100, Band Neuts % (Manual) 0, Abnorm Lymph % (Manual) 0, Nucleated RBC % Not Reportable, Neutrophils # (Manual) 11.7 H, Lymphocytes # (Manual) 2.8, Monocytes # (Manual) 1.3 H, Eosinophils # (Manual) 0.3, Basophils # (Manual) 0.2 H, Differential Comment MANUAL DIFFERENTIAL, WBC Morphology NORMAL APPEARANCE, Platelet Estimate NORMAL (130-450,000), Platelet Morphology 1+ LARGE PLATELETS, RBC Morph Micro Appear 1+ HYPOCHROMASIA 12/23/18 07:54: Last Dose Date 12/22/18, Last Dose Time 1619, Vancomycin Trough 11.6 12/23/18 04:15: Sodium 136, Potassium 4.8, Chloride 101, Carbon Dioxide 26, Anion Gap 9.0, BUN 21 H, Creatinine 0.8, Estimated GFR (MDRD) 68 L, Glucose 253 H, Calcium 8.9, Phosphorus 1.8 L, Magnesium 2.0 12/23/18 04:15: WBC 16.3 H, RBC 3.44 L, Hgb 10.6 L, Hct 33.2 L, MCV 96.5, MCH 30.8, MCHC 31.9 L, RDW 12.9, Plt Count 303, MPV 9.4, Neut # (Auto) Not Reportable, Lymph # (Auto) Not Reportable, [place] # (Auto) Not Reportable, Eos # (Auto) Not Reportable, Baso # (Auto) Not Reportable, Absolute Nucleated RBC Not Reportable, Total Counted 100, Band Neuts % (Manual) 0, Abnorm Lymph % (Manual) 0, Nucleated RBC % Not Reportable, Neutrophils # (Manual) 11.9 H, Lymphocytes # (Manual) 2.4, Monocytes # (Manual) 1.3 H, Eosinophils # (Manual) 0.5, Basophils # (Manual) 0.2 H, Differential Comment MANUAL DIFFERENTIAL, WBC Morphology NORMAL APPEARANCE, Platelet Estimate NORMAL (130-450,000), Platelet Morphology NORMAL APPEARANCE, RBC Morph Micro Appear NORMAL APPEARANCE 12/22/18 04:45: Total Bilirubin 0.6, Direct Bilirubin 0.4, AST 51 H, ALT 51, Alkaline Phosphatase 166 H, Total Protein 6.8, Albumin 2.8 L, Globulin 4.0 12/22/18 04:45: Sodium 135, Potassium 5.1 H, Chloride 99 L, Carbon Dioxide 25, Anion Gap 11.0, BUN 23 H, Creatinine 0.9, Estimated GFR (MDRD) 60 L, Glucose 346 H, Calcium 8.6, Phosphorus 1.5 L, Magnesium 1.9 12/22/18 04:45: WBC 16.2 H, RBC 3.45 L, Hgb 10.2 L, Hct 33.3 L, MCV 96.5, MCH 29.6, MCHC 30.6 L, RDW 13.1, Plt Count 258, MPV 9.4, Neut # (Auto) Not Reportable, Lymph # (Auto) Not Reportable, [place] # (Auto) Not Reportable, Eos # (Auto) Not Reportable, Baso # (Auto) Not Reportable, Absolute Nucleated RBC Not Reportable, Total Counted 100, Band Neuts % (Manual) 2, Abnorm Lymph % (Manual) 0, Nucleated RBC % Not Reportable, Neutrophils # (Manual) 13.3 H, Lymphocytes # (Manual) 1.9, Monocytes # (Manual) 1.0, Eosinophils # (Manual) 0.0, Basophils # (Manual) 0.0, Differential Comment MANUAL DIFFERENTIAL, WBC Morphology NORMAL APPEARANCE, Platelet Estimate NORMAL (130-450,000), Platelet Morphology NORMAL APPEARANCE, RBC Morph Micro Appear NORMAL APPEARANCE 12/21/18 14:20: Troponin I 0.04 12/21/18 09:55: Sodium 135, Potassium 4.6, Chloride 95 L, Carbon Dioxide 27, Anion Gap 13.0, BUN 19, Creatinine 0.9, Estimated GFR (MDRD) 60 L, Glucose 146 H , Calcium 8.8, Phosphorus 1.4 L, Magnesium 1.7 12/21/18 08:27: Troponin I 0.04 12/21/18 07:06: Glucose 274 H 12/21/18 05:25: Glucose 343 H 12/21/18 05:25: VBG pH 7.295 L, VBG pCO2 53.6 H, VBG pO2 53.6 H, VBG HCO3 25.5, VBG Total CO2 27.1, VBG O2 Saturation 86.8 H, VBG Base Excess -1.6 12/21/18 05:25: Glycated Hemoglobin 12.1 H, Estim Average Glucose 301 H 12/21/18 05:25: Sodium 132 L, Potassium 4.2, Chloride 93 L, Carbon Dioxide 27, Anion Gap 12.0, BUN 18, Creatinine 1.0, Estimated GFR (MDRD) 53 L, Glucose 337 H , Calcium 8.9, Phosphorus 1.8 L, Magnesium 1.6 L 12/21/18 05:25: WBC 14.4 H, RBC 3.73 L, Hgb 11.3 L, Hct 35.5 L, MCV 95.2, MCH 30.3, MCHC 31.8 L, RDW 12.7, Plt Count 287, MPV 9.1, Neut # (Auto) 11.6 H, Lymph # (Auto) 1.7, [place] # (Auto) 0.9, Eos # (Auto) 0.0, Baso # (Auto) 0.1, Absolute Nucleated RBC 0.00, Nucleated RBC % 0.0 12/21/18 02:55: Troponin I 0.04 12/21/18 02:55: Glucose 434 H 12/21/18 02:55: Sodium 135, Potassium 4.9, Chloride 91 L, Carbon Dioxide 30, Anion Gap 14.0 H, BUN 20, Creatinine 1.0, Estimated GFR (MDRD) 53 L, Glucose 429 H, Calcium 9.3, Phosphorus 2.7, Magnesium 1.8 12/20/18 22:20: Lactic Acid 1.4 12/20/18 22:20: Sodium 130 L, Potassium 4.9, Chloride 86 L, Carbon Dioxide 29, Anion Gap 15.0 H, BUN 20, Creatinine 0.9, Estimated GFR (MDRD) 60 L, Glucose 428 H, Calcium 9.6, Total Bilirubin 1.4 H, AST 53 H, ALT 51, Alkaline Phosphatase 128 H, Total Protein 7.4, Albumin 3.7, Globulin 3.7, Albumin/Globulin Ratio 1.0, Lipase 30, Serum Ketones SMALL H 12/20/18 22:20: WBC 17.9 H, RBC 4.09 L, Hgb 12.0, Hct 38.5, MCV 94.1, MCH 29.3, MCHC 31.2 L, RDW 12.7, Plt Count 288, MPV 9.1, Neut # (Auto) Not Reportable, Lymph # (Auto) Not Reportable, [place] # (Auto) Not Reportable, Eos # (Auto) Not Reportable, Baso # (Auto) Not Reportable, Absolute Nucleated RBC Not Reportable, Total Counted 100, Band Neuts % (Manual) 12 H, Abnorm Lymph % (Manual) 0, Nucleated RBC % Not Reportable, Neutrophils # (Manual) 14.1 H, Lymphocytes # (Manual) 2.3, Monocytes # (Manual) 1.4 H, Eosinophils # (Manual) 0.0, Basophils # (Manual) 0.0, Differential Comment MANUAL DIFFERENTIAL, Manual Slide Review Indicated, WBC Morphology NORMAL APPEARANCE, Platelet Estimate NORMAL (130- 450,000), Platelet Morphology NORMAL APPEARANCE, RBC Morph Micro Appear NORMAL APPEARANCE Fish Bones: 12/29/18 05:04 12/28/18 05:15 Home Medications and Allergies Home Medications: Ambulatory Orders Ascorbic Acid [Vitamin C] 500 mg PO DAILY 12/20/18 Aspirin [Aspirin EC] 81 mg PO DAILY 12/20/18 C,E,Zinc,Copper 11/[id number]/Lut [Ocuvite Adult 50 Plus Softgel] 1 each PO DAILY 12/20/18 Calcium Carbonate [Calcium] 500 mg PO DAILY 12/20/18 Cholecalciferol (Vitamin D3) [Vitamin D3] 1,000 unit PO DAILY 12/20/18 Garlic 1,000 mg PO DAILY 12/20/18 Insulin Detemir [Levemir Flextouch] 37 units SUBQ BID 12/20/18 Loratadine 10 mg PO DAILY 12/20/18 Multivitamin [Multivitamins] 1 each PO DAILY 12/20/18 Active Medications Acetaminophen (Tylenol) 650 mg PO Q6HR PRN PRN Reason: Pain 1 to 4 Last Admin: 12/28/18 10:43 Dose: 650 mg Aspirin (Ecotrin) 81 mg PO DAILY [facility] Last Admin: 12/28/18 09:18 Dose: 81 mg Atorvastatin Calcium (Lipitor) 40 mg PO QPM [facility] Last Admin: 12/28/18 21:11 Dose: 40 mg Enoxaparin Sodium (Lovenox) 40 mg SUBQ DAILY [facility] Last Admin: 12/28/18 09:18 Dose: 40 mg Ferrous Gluconate (Fergon) 324 mg PO DAILYWM [facility] Furosemide (Lasix) 40 mg PO DAILY [facility] Last Admin: 12/28/18 09:18 Dose: 40 mg Cefepime HCl 2 gm/ Sodium (Chloride) 100 mls @ 200 mls/hr IV Q12H [facility] Last Admin: 12/29/18 08:05 Dose: 200 mls/hr Vancomycin HCl 1 gm/ Sodium (Chloride) 250 mls @ 250 mls/hr IV Q12H [facility] Last Admin: 12/29/18 09:02 Dose: 250 mls/hr Insulin Aspart (Novolog) 3 - 11 unit SUBQ 0800,1200,1700,2100 SHANNAN; Protocol Last Admin: 12/29/18 08:11 Dose: Not Given Insulin Aspart (Novolog) 28 unit SUBQ TIDWM [facility] Last Admin: 12/29/18 08:11 Dose: 28 unit Insulin Human NPH (Novolin N) 38 unit SUBQ BID [facility] Last Admin: 12/28/18 21:13 Dose: 38 unit Levalbuterol HCl (Xopenex) 1.25 mg INH QID PRN PRN Reason: Shortness of Air/Wheezing Levothyroxine Sodium (Synthroid) 112 mcg PO QDAC [facility] Last Admin: 12/29/18 06:31 Dose: 112 mcg Levothyroxine Sodium (Synthroid) 75 mcg PO QDAC [facility] Last Admin: 12/29/18 06:31 Dose: 75 mcg Nystatin (Nystop) 1 applic TOP BID [facility] Last Admin: 12/28/18 21:13 Dose: 1 applic Paroxetine HCl (Paxil) 40 mg PO QPM [facility] Last Admin: 12/28/18 21:11 Dose: 40 mg Polyethylene Glycol (Miralax) 17 gm PO DAILY [facility] Last Admin: 12/28/18 09:19 Dose: Not Given Saccharomyces Boulardii (Florastor) 250 mg PO BIDWM [facility] Last Admin: 12/29/18 08:10 Dose: 250 mg Sodium Chloride (Normal Saline Flush 0.9%) 10 ml IVP 0100,0900,1700 [facility] Last Admin: 12/29/18 08:10 Dose: 10 ml Sodium Chloride (Normal Saline Flush 0.9%) 10 ml IVP PRN PRN PRN Reason: NEEDED PER PROVIDER ORDERS Last Admin: 12/29/18 08:10 Dose: 10 ml Sodium Chloride (Normal Saline Flush 0.9%) 20 ml IVP PRN PRN PRN Reason: After Blood Draw Last Admin: 12/28/18 07:58 Dose: 20 ml Spironolactone (Aldactone) 25 mg PO DAILY [facility] Last Admin: 12/28/18 09:18 Dose: 25 mg Lovastatin [Altoprev] 40 mg ORAL QPM 06/23/14 Insulin Regular, Human [Novolin R] 28 units SUBQ TIDWM 06/22/15 PARoxetine [Paxil] 40 mg PO QPM 06/22/15 Carvedilol 3.125 mg PO DAILY 01/29/16 Furosemide 40 mg PO DAILY 08/23/18 Levalbuterol [Xopenex] 3 ml INH QID PRN 11/18/18 Ascorbic Acid [Vitamin C] 500 mg PO DAILY 12/20/18 Aspirin [Aspirin EC] 81 mg PO DAILY 12/20/18 C,E,Zinc,Copper 11/Sjcxf5w/Lut [Ocuvite Adult 50 Plus Softgel] 1 each PO DAILY 12/20/18 Calcium Carbonate [Calcium] 500 mg PO DAILY 12/20/18 Cholecalciferol (Vitamin D3) [Vitamin D3] 1,000 unit PO DAILY 12/20/18 Garlic 1,000 mg PO DAILY 12/20/18 Insulin Detemir [Levemir Flextouch] 37 units SUBQ BID 12/20/18 Loratadine 10 mg PO DAILY 12/20/18 Multivitamin [Multivitamins] 1 each PO DAILY 12/20/18 Allergies/Adverse Reactions: Allergies Allergy/AdvReac Type Severity Reaction Status Date / Time No Known Drug Allergies Allergy Verified 12/20/18 22:03 Anes History & Medical History - Anesthetic History Anesthesia Complications: reports: No previous complications - Medical History Cardiovascular: reports: Congestive heart failure, Hypertension, High cholesterol, Coronary artery disease, [place] Pulmonary: reports: COPD, Shortness of breath, Sleep apnea (patient denies using CPAP or knowing she has OWEN diagnosis. Patient unable to stay awake during preop interview. 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 uses 3.0 lit. O2, n.c. at home. Has O2 concentrater - Surgical History Eyes Ears Nose Throat (EENT): Cataracts, Tonsil/Adenoidectomy Gynecologic: Hysterectomy Results - Echo Results Echo Results: Report reviewed (Patient has pulmonary hypertension. PASP 59 mmHg) Exam General: Other (Patient very sleepy. With stimulation, patient will respond appropriately.) Dental: Dentures full Upper, Dentures full Lower Mouth Openin Fingerbreadth Neck Mobility: Normal Mallampati classification: III Thyromental Distance: greater than 6 cm Respiratory: Lungs clear, Normal breath sounds, No respiratory distress, No accessory muscle use Cardiovascular: Regular rate, Normal S1, Normal S2, No murmurs Mental/Cognitive Status: Lethargic Plan Anesthesia Type: General Consent for Procedure(s) Verified and Reviewed: Yes Code Status: Attempt Resuscitation ASA classification: 4-Incapacitating disease Is this case an emergency?: No
[2018-12-29 11:04] LABS: ABG BASE EXCESS 9.7 mmol/L (-2.0-3.0); ABG HCO3 34.8 mmol/L (22.0-26.0); ABG OXYGEN SATURATION 97 % (94-98); ABG PCO2 50 mmHg (34-45); ABG PH 7.46 (7.35-7.45); ABG PO2 93 mmHg (80-100); ABG TCO2 36.4 MMOL/L (21.0-29.0); ALLEN TEST POSITIVE
[2018-12-29] MEDS: ENOXAPARIN 40 MG/0.4 ML SYRINGE SUBQ SCH (11:56)
[2018-12-29] MEDS: INSULIN NPH HUMAN 100 UNIT/1 ML 10 ML MDV SUBQ SCH ×2 (11:59→20:51)
[2018-12-29] MEDS ORDERED: BUPIVACAINE 0.25%-EPI 1:200000 PF 30 ML VIAL ONE (13:21)
[2018-12-29] MEDS: INSULIN REGULAR HUMAN 100 UNIT/1 ML 10 ML MDV SUBQ SCH ×2 (14:08→17:32)
[2018-12-29] MEDS ORDERED: LACTATED RINGERS 1,000 ML IV ONE ×2 (14:11→16:25)
[2018-12-29] MEDS ORDERED: SUCCINYLCHOLINE 200 MG/10 ML VIAL IVP ONE (15:20)
[2018-12-29] MEDS ORDERED: ePHEDrine 50 MG/ML VIAL IVP ONE (15:20)
[2018-12-29] MEDS ORDERED: PHENYLEPHRINE 50 MG/5 ML VIAL IV ONE (15:20)
[2018-12-29] MEDS ORDERED: PROPOFOL 200 MG/20 ML VIAL IVP ONE (15:20)
[2018-12-29] MEDS ORDERED: fentaNYL 250 MCG/5 ML VIAL IVP ONE (15:20)
[2018-12-29] MEDS ORDERED: ceFAZolin 1 GM VIAL IV ONE (15:20)
[2018-12-29] MEDS: POLYETHYLENE GLYCOL 3350 17 GM PACKET PO SCH (15:22)
[2018-12-29] MEDS: NYSTATIN POWDER 15 GM TOP SCH ×2 (15:23→20:38)
--- NOTE | 2018-12-29 15:30 | OPERATIVE REPORT ---
Operative Report - General Admit Date: 12/21/18 Procedure Date: 12/29/18 Planned Procedure: Abdominal wall exploration, I & D, debridement of soft tissue infection Pre-Op Diagnosis: Abdominal wall soft tissue infection Procedure Performed: Abdominal wall debridement/I & D Post Op Diagnosis: Necrotizing fasciitis of the abdominal wall - Procedure Note Primary Surgeon: Garrett Tinajero MD Anesthesia Provider: David Subramanian CRNA Anesthesia Technique: General ET tube Pathology: necrotic soft tissue of abd wall Estimated Blood Loss (mL): 400 Indications: non healing soft tissue infection of abd wall Findings: Necrotic fat down to investing fascia over a 10 x 6 cm area of RUQ Complications: none - Other Other Information/Narrative: After informed consent patient was taken to the OR and placed under general anesthesia. Her abdomen was prepped with Chloroprep and draped in the usual sterile fashion. A enrique clamp was used to probe the existing small I & D site in the RUQ and was seen to extend deep to investing fascia and laterally. An incision was made laterally extending from this site to fully unroof the tract. Hemostasis was achieved with electrocautery. Numerous areas of semi necrotic and infected fat were exposed and sharply debrided with a 10 blade scalpel and cautery. Ultimately the infection was seen to encompass a 20 cm lateral by 6 cm vertical area of soft tissue extending down to investing fascia, approx 8 cm deep. This tissue was resected until viable fat margins were obtained circumferentially. Samples of the excised material was sent for gm stain and aerobic culture as well as pathology. The wound was then copiously irrigated with sterile saline mixed with 1 gm of cefazolin per liter, then left open and dressed with a kerlix soaked in the antbiotic solution. Dry ABD pads and Tegaderm completed the dressing. Sponge and needle counts were correct. No drains were used. Pt tolerated the procedure well. The plan is for the patient to return to the OR in 24 hours or so for a second look and placement of a wound VAC device. Condition is serious but stable.
--- NOTE | 2018-12-29 15:57 | PROVIDER PROGRESS NOTE ---
<Leonardo Lopes - Last Filed: 12/30/18 12:00> Subjective - Prog Note Date Prog Note Date: 12/29/18 Prog Note Time: 15:54 - Subjective Pt reports feeling: Worse (Patient is seen sitting up in her chair this am. She is drowsy, but oriented. States that her abdominal wound feels better today, though it appears worse. Was seen by Dr. Tinajero from general surgery today who would like to take her to the OR today due to a more localized induration of her abdominal cellulitis that has turned purple in color and her rising luekocytosi s.) Current Medications - Current Medications Current Medications: Allergies No Known Drug Allergies Allergy (Verified 12/20/18 22:03) Home Medications Lovastatin [Altoprev] 40 mg ORAL QPM 06/23/14 [History Confirmed 12/20/18] Insulin Regular, Human [Novolin R] 28 units SUBQ TIDWM 06/22/15 [History Confirmed 12/20/18] PARoxetine [Paxil] 40 mg PO QPM 06/22/15 [History Confirmed 12/20/18] Carvedilol 3.125 mg PO DAILY 01/29/16 [History Confirmed 12/20/18] Furosemide 40 mg PO DAILY 08/23/18 [History Confirmed 12/20/18] Levalbuterol [Xopenex] 3 ml INH QID PRN 11/18/18 [History Confirmed 12/21/18] Ascorbic Acid [Vitamin C] 500 mg PO DAILY 12/20/18 [History Confirmed 12/21/18] Aspirin [Aspirin EC] 81 mg PO DAILY 12/20/18 [History Confirmed 12/20/18] C,E,Zinc,Copper 11/[id number]/Lut [Ocuvite Adult 50 Plus Softgel] 1 each PO DAILY 12/20/18 [History Confirmed 12/20/18] Calcium Carbonate [Calcium] 500 mg PO DAILY 12/20/18 [History Confirmed 12/20/18] Cholecalciferol (Vitamin D3) [Vitamin D3] 1,000 unit PO DAILY 12/20/18 [History Confirmed 12/20/18] Garlic 1,000 mg PO DAILY 12/20/18 [History Confirmed 12/20/18] Insulin Detemir [Levemir Flextouch] 37 units SUBQ BID 12/20/18 [History Confirmed 12/20/18] Loratadine 10 mg PO DAILY 12/20/18 [History Confirmed 12/20/18] Multivitamin [Multivitamins] 1 each PO DAILY 12/20/18 [History Confirmed 12/20/18] Active Medications Generic Name Dose Route Start Last Admin Trade Name Freq PRN Reason Stop Dose Admin Acetaminophen 650 mg 12/21/18 01:41 12/28/18 10:43 Tylenol PO 650 mg Q6HR PRN Administration Pain 1 to 4 Aspirin 81 mg 12/21/18 09:00 12/28/18 09:18 Ecotrin PO 81 mg DAILY SHANNAN Administration Atorvastatin Calcium 40 mg 12/21/18 21:00 12/28/18 21:11 Lipitor PO 40 mg QPM SHANNAN Administration Enoxaparin Sodium 40 mg 12/25/18 09:00 12/29/18 11:56 Lovenox SUBQ Not Given DAILY SHANNAN Ferrous Gluconate 324 mg 12/29/18 09:00 Fergon PO DAILYWM SHANNAN Furosemide 40 mg 12/23/18 09:00 12/28/18 09:18 Lasix PO 40 mg DAILY SHANNAN Administration Cefepime HCl 2 gm/ Sodium 100 mls @ 200 mls/hr 12/21/18 08:00 12/29/18 08:35 Chloride IV Infused Q12H SHANNAN Infusion Vancomycin HCl 1 gm/ Sodium 250 mls @ 250 mls/hr 12/25/18 21:00 12/29/18 10:02 Chloride IV Infused Q12H SHANNAN Infusion Insulin Aspart 28 unit 12/24/18 18:00 12/29/18 12:48 Novolog SUBQ Not Given TIDWM SHANNAN Insulin Human NPH 38 unit 12/24/18 21:00 12/29/18 11:59 Novolin N SUBQ Not Given BID SHANNAN Insulin Human Regular 1 - 9 unit 12/29/18 13:00 12/29/18 14:08 Novolin R SUBQ Not Given Q6HR [facility] Protocol Levalbuterol HCl 1.25 mg 12/24/18 12:57 Xopenex INH QID PRN Shortness of Air/Wheezing Levothyroxine Sodium 112 mcg 12/21/18 07:00 12/29/18 06:31 Synthroid PO 112 mcg QDAC SHANNAN Administration Levothyroxine Sodium 75 mcg 12/21/18 07:00 12/29/18 06:31 Synthroid PO 75 mcg QDAC SHANNAN Administration Nystatin 1 applic 12/21/18 21:00 12/29/18 15:23 Nystop TOP Not Given BID SHANNAN Paroxetine HCl 40 mg 12/24/18 21:00 12/28/18 21:11 Paxil PO 40 mg QPM SHANNAN Administration Polyethylene Glycol 17 gm 12/24/18 09:00 12/29/18 15:22 Miralax PO Not Given DAILY SHANNAN Saccharomyces Boulardii 250 mg 12/23/18 17:00 12/29/18 08:10 Florastor PO 250 mg BIDWM SHANNAN Administration Sodium Chloride 10 ml 12/21/18 09:00 12/29/18 08:10 Normal Saline Flush 0.9% IVP 10 ml 0100,0900,1700 SHANNAN Administration Sodium Chloride 10 ml 12/21/18 01:41 12/29/18 08:10 Normal Saline Flush 0.9% IVP 10 ml PRN PRN Administration NEEDED PER PROVIDER ORDERS Sodium Chloride 20 ml 12/28/18 01:27 12/28/18 07:58 Normal Saline Flush 0.9% IVP 20 ml PRN PRN Administration After Blood Draw Spironolactone 25 mg 12/25/18 09:00 12/28/18 09:18 Aldactone PO 25 mg DAILY SHANNAN Administration Objective - Vital Signs/Intake & Output Reviewed Vital Signs: Yes Vital Signs: Vital Signs x48h Temp Pulse Pulse Resp BP BP Pulse Ox 12/29/18 15:38 36 C L 86 15 161/84 H 93 12/29/18 10:50 36.6 C 72 18 95 12/29/18 10:41 72 18 149/56 H 95 12/29/18 08:09 36.6 C 73 18 116/70 92 Intake & Output: Intake & Output 12/26/18 12/27/18 12/28/18 12/29/18 23:59 23:59 23:59 23:59 Intake Total 4275 1280 2323 1030 Output Total 2800 2850 4300 1500 Balance 1475 -1573 -1977 -470 - Objective General Appearance: positive: No acute distress, Lethargic Eyes Bilateral: positive: Normal inspection, PERRL, No lid inflammation, Conjunctivae nml ENT: positive: ENT inspection nml, No signs of dehydration Neck: positive: Nml inspection, No JVD, Trachea midline. negative: Thyromegaly, Stiff neck Respiratory: positive: Chest non-tender, No respiratory distress, Breath sounds nml, Other (O2 via NC) Cardiovascular: positive: Regular rate & rhythm, No murmur, No gallop. negative: JVD present Peripheral Pulses: 2+ Radial (R), 2+ Radial (L) Abdomen: positive: Non-tender, Nml bowel sounds, Other (Obese with pannus, R mid abdomen has a bandage). negative: Tenderness Back: positive: Nml inspection Skin: positive: Color nml, Warm, Dry, Other (cellulitis to R upper abdominal wall covered with dressing) Extremities: positive: Non-tender, Nml appearance, Pedal edema Neurologic/Psychiatric: positive: Oriented x3, Mood/affect nml - Lab Results Fish Bones: 12/30/18 04:40 12/30/18 04:40 Other Labs: Lab Results x24hrs 12/29/18 12/29/18 Range/Units 10:53 05:04 WBC 20.4 H (4.8-10.8) x10^3/uL RBC 3.34 L (4.20-5.40) 10^6/uL Hgb 9.7 L (12.0-16.0) g/dL Hct 32.1 L (37.0-47.0) % MCV 96.1 (81.0-99.0) fL MCH 29.0 (27.0-31.0) pg MCHC 30.2 L (32.0-36.0) g/dL RDW 13.3 (12.0-15.0) % Plt Count 392 (130-450) 10^3/uL MPV 8.9 (7.9-10.8) fL Neut # (Auto) Not Reportable Lymph # (Auto) Not Reportable Dukes # (Auto) Not Reportable Eos # (Auto) Not Reportable Baso # (Auto) Not Reportable Absolute Nucleated RBC Not Reportable Total Counted 100 Band Neuts % (Manual) 7 (0 - 10) % Abnorm Lymph % (Manual) 0 % Metamyelocytes % 7 H ( - 0) % Myelocytes % 7 H ( - 0) % Nucleated RBC % Not Reportable Neutrophils # (Manual) 11.8 H (1.5-6.6) 10^3/uL Lymphocytes # (Manual) 3.9 H (1.5-3.5) 10^3/uL Monocytes # (Manual) 1.0 (0.0-1.0) 10^3/uL Eosinophils # (Manual) 0.6 (0-0.7) 10^3/uL Basophils # (Manual) 0.2 H (0-0.1) 10^3/uL Differential Comment MANUAL DIFFERENTIAL Platelet Estimate NORMAL (130-450,000) (NORMAL) RBC Morph Micro Appear NORMAL APPEARANCE (NORMAL) Bld Gas Analysis Time 1053 Sample Site RIGHT RADIAL ABG pH 7.46 H (7.35-7.45) ABG pCO2 50 H (34-45) mmHg ABG pO2 93 (80-100) mmHg ABG HCO3 34.8 H (22.0-26.0) mmol/L ABG Total CO2 36.4 H (21.0-29.0) MMOL/L ABG O2 Saturation 97 (94-98) % ABG Base Excess 9.7 H (-2.0-3.0) mmol/L Frankie Test POSITIVE O2 Delivery Device NASAL CANNULA O2 Liters/Min 3.00 LPM ABX Reporting Has patient been on IV antibiotics over the past 48 hours?: Yes Sepsis Event Note (H) - Evaluation Current Stage of Sepsis: Resolved Possible source of Sepsis: positive: Skin/soft tissue - Sepsis Criteria Sepsis Criteria: Recorded Heart Rate greater than 90 bpm, WBC count greater than 10% bands, WBC count greater than 12,000 or less than 4000 Assessment/Plan - Problem List (1) Cellulitis Qualifiers: Site of cellulitis: trunk Site of cellulitis of trunk: abdominal wall Qualified Code(s): L03.311 - Cellulitis of abdominal wall <Stacy Salmeron - Last Filed: 01/02/19 09:08> Subjective - Subjective Subjective: She was confused this a.m. (not oriented to person or place). Objective - Vital Signs/Intake & Output Reviewed Vital Signs: Yes Vital Signs: Vital Signs x48h Temp Pulse Pulse Resp BP BP Pulse Ox 12/29/18 16:25 36.5 C 84 14 163/73 H 94 12/29/18 16:20 36.2 C L 82 14 180/76 H 97 12/29/18 16:15 36.5 C 82 14 163/73 H 91 L 12/29/18 16:10 36.5 C 85 14 184/75 H 92 12/29/18 16:05 36.2 C L 85 18 183/75 H 95 12/29/18 16:00 36.2 C L 86 17 183/76 H 95 12/29/18 15:55 36.3 C L 84 15 170/76 H 93 12/29/18 15:50 36.2 C L 88 18 171/74 H 92 12/29/18 15:45 36.0 C L 85 15 185/100 H 93 12/29/18 15:40 36.2 C L 87 20 171/74 H 91 L 12/29/18 15:38 36 C L 86 15 161/84 H 93 12/29/18 10:50 36.6 C 72 18 95 12/29/18 10:41 72 18 149/56 H 95 Intake & Output: Intake & Output 12/26/18 12/27/18 12/28/18 12/29/18 23:59 23:59 23:59 23:59 Intake Total 4275 1280 2323 1030 Output Total 2800 2850 4300 1500 Balance 0220 -6594 -1977 -470 - Objective General Appearance: positive: Lethargic Eyes Bilateral: positive: Normal inspection Neck: positive: Nml inspection Respiratory: positive: No respiratory distress, Breath sounds nml Cardiovascular: positive: No murmur Abdomen: positive: Non-tender, Other (Onese with pannus, R mid abdomen has a bandage) Extremities: positive: Other (1+ edema) Neurologic/Psychiatric: positive: Other (Sleepy, closes eyes when answers, was confused to location this a.m.) - Lab Results Fish Bones: 12/30/18 04:40 12/30/18 04:40 Other Labs: Lab Results x24hrs 12/29/18 12/29/18 Range/Units 10:53 05:04 WBC 20.4 H (4.8-10.8) x10^3/uL RBC 3.34 L (4.20-5.40) 10^6/uL Hgb 9.7 L (12.0-16.0) g/dL Hct 32.1 L (37.0-47.0) % MCV 96.1 (81.0-99.0) fL MCH 29.0 (27.0-31.0) pg MCHC 30.2 L (32.0-36.0) g/dL RDW 13.3 (12.0-15.0) % Plt Count 392 (130-450) 10^3/uL MPV 8.9 (7.9-10.8) fL Neut # (Auto) Not Reportable Lymph # (Auto) Not Reportable Dukes # (Auto) Not Reportable Eos # (Auto) Not Reportable Baso # (Auto) Not Reportable Absolute Nucleated RBC Not Reportable Total Counted 100 Band Neuts % (Manual) 7 (0 - 10) % Abnorm Lymph % (Manual) 0 % Metamyelocytes % 7 H ( - 0) % Myelocytes % 7 H ( - 0) % Nucleated RBC % Not Reportable Neutrophils # (Manual) 11.8 H (1.5-6.6) 10^3/uL Lymphocytes # (Manual) 3.9 H (1.5-3.5) 10^3/uL Monocytes # (Manual) 1.0 (0.0-1.0) 10^3/uL Eosinophils # (Manual) 0.6 (0-0.7) 10^3/uL Basophils # (Manual) 0.2 H (0-0.1) 10^3/uL Differential Comment MANUAL DIFFERENTIAL Platelet Estimate NORMAL (130-450,000) (NORMAL) RBC Morph Micro Appear NORMAL APPEARANCE (NORMAL) Bld Gas Analysis Time 1053 Sample Site RIGHT RADIAL ABG pH 7.46 H (7.35-7.45) ABG pCO2 50 H (34-45) mmHg ABG pO2 93 (80-100) mmHg ABG HCO3 34.8 H (22.0-26.0) mmol/L ABG Total CO2 36.4 H (21.0-29.0) MMOL/L ABG O2 Saturation 97 (94-98) % ABG Base Excess 9.7 H (-2.0-3.0) mmol/L Frankie Test POSITIVE O2 Delivery Device NASAL CANNULA O2 Liters/Min 3.00 LPM - Diagnostic Imaging Diagnostic Imaging Results: positive: Final report reviewed Assessment/Plan - Problem List (1) Necrotizing fasciitis Impression: The cellulitic area and carbuncle of the abdominal wall has been followed by Surgeons ever since it was I&D'd 3 days ago. The culture from the I&D sample is growing GPC (it was a send out, and took a long time, since it was ordered to do aerobic and anaerobic cultures). This morning the covering surgeon, Dr. Tinajero found it to be indurated and darker (purple). Because of this and the continuing elevation of white blood count (up to 20K today), she was taken to the OR. Dr. Tinajero reports that she had necrotizing fasciitis. He will take her to the operating room again tomorrow for further surgical management. Will expand the antibiotic coverage from Cefepime plus Vancomycin (which was reviewed with infectious disease at [facility] 6 days ago on a consult call, and ID felt that to be adequate antibiotic coverage), change to Pip/Tazo iv, Clindamycin iv and continue Vancomycin iv. Start gentle hydration, hold Lasix dose. She is in the ICU post-op, in serious condition. CRITICAL CARE TIME SPENT : 60 MIN (2) Cellulitis Impression: As above. Will check for sepsis with L.A. (3) HFrEF (heart failure with reduced ejection fraction) Impression: There were no signs of volume overload and she was kept on her usual home medications ever since the beginning of this admission. The Anesthesiologist who saw her preop, felt that she was confused and an ABG was done. This showed pCO2 of 50, adequate pO2 of 93 with good saturation. There is probably some CO2 retention because of her lethargy and hypoventilation. The patient required a ventilator in the OR and then BiPAP in PACU. She is being transferred to the ICU postop. We will hold the Lasix temporarily while she is getting no oral hydration. Qualifiers: Heart failure chronicity: chronic Qualified Code(s): I50.22 - Chronic systolic (congestive) heart failure (4) Diabetes mellitus with hyperglycemia Impression: She has had better glucose control over the past 1 week, despite the worsening white blood count. She is on high doses of long-acting insulin, nutritional coverage plus sliding scale insulin on top of that. Qualifiers: Diabetes mellitus type: type 2 Diabetes mellitus long term care phlebotomist insulin use: with long term care phlebotomist use Qualified Code(s): E11.65 - Type 2 diabetes mellitus with hyperglycemia; Z79.4 - skilled nursing (current) use of insulin (5) Hypothyroidism Impression: She remains on her home dose of thyroid replacement. (6) Morbid obesity with BMI of 50.0-59.9, adult Impression: Continue with calorie restricted, carb controlled diet when it is advanced PT will now be put on hold since she is in the ICU post-op, in serious condition (7) Anemia Impression: Iron replacement was started orally several days ago Qualifiers: Anemia type: iron deficiency (8) Depression with anxiety Impression: She is on her usual home medications while here (9) Diabetic ketoacidosis Impression: Resolved early after admission Qualifiers: Diabetes mellitus type: type 2 (10) Sepsis due to cellulitis Impression: This was her initial presentation and cleared in parallel with the DKA. We will re-check for sepsis with lactic acid today
[2018-12-29] MEDS ORDERED: fentaNYL 100 MCG/2 ML VIAL ONE (16:23)
[2018-12-29] MEDS: ASPIRIN EC 81 MG TABLET PO SCH (17:13)
[2018-12-29] MEDS: FERROUS GLUCONATE 324 MG TABLET PO SCH (17:13)
[2018-12-29] MEDS: SPIRONOLACTONE 25 MG TABLET PO SCH (17:14)
[2018-12-29] MEDS: SODIUM CHLORIDE 0.9% 1,000 ML IV SCH (17:25)
[2018-12-29] MEDS: PIPERACILLIN/TAZOBACTAM 4.5 GM in SODIUM CHLORIDE 0.9% MINIBAG 100 ML IV SCH ×2 (17:25→21:56)
[2018-12-29] MEDS: CLINDAMYCIN 900 MG/50 ML 50 ML IV SCH (18:15)
[2018-12-29] MEDS: ACETAMINOPHEN 325 MG TABLET PO PRN (20:39)
[2018-12-29] MEDS: PARoxetine 10 MG TABLET PO SCH (20:39)
[2018-12-29] MEDS: ATORVASTATIN 40 MG TABLET PO SCH (20:39)
[2018-12-30] MEDS: CLINDAMYCIN 900 MG/50 ML 50 ML IV SCH ×3 (00:21→13:16)
[2018-12-30] MEDS: INSULIN REGULAR HUMAN 100 UNIT/1 ML 10 ML MDV SUBQ SCH ×4 (00:21→18:33)
[2018-12-30] MEDS: SODIUM CHLORIDE FLUSH 0.9% 10 ML SYRINGE IVP SCH ×2 (00:36→09:51)
[2018-12-30] MEDS: PIPERACILLIN/TAZOBACTAM 4.5 GM in SODIUM CHLORIDE 0.9% MINIBAG 100 ML IV SCH ×2 (04:13→09:48)
[2018-12-30] MEDS: SODIUM CHLORIDE FLUSH 0.9% 10 ML SYRINGE IVP PRN (04:39)
[2018-12-30 04:49] LABS: BASOPHILS % (AUTO) 0.7 %; EOSINOPHILS % (AUTO) 2.6 %; HGB - HEMOGLOBIN 9.1 g/dL (12.0-16.0); LYMPHOCYTES % (AUTO) 18.2 %; MEAN CORPUSCULAR HEMOGLOBIN 29.8 pg (27.0-31.0); MEAN CORPUSCULAR HGB CONC 29.7 g/dL (32.0-36.0); MEAN CORPUSCULAR VOLUME 100.3 fL (81.0-99.0); MEAN PLATELET VOLUME 8.9 fL (7.9-10.8); NEUTROPHILS % (AUTO) 59.3 %; PLT - PLATELET COUNT 375 10^3/uL (130-450); RED BLOOD COUNT 3.05 10^6/uL (4.20-5.40); RED CELL DISTRIBUTION WIDTH 13.4 % (12.0-15.0); WHITE BLOOD COUNT 21.7 x10^3/uL (4.8-10.8)
[2018-12-30 04:51] LABS: ABNORMAL LYMPHS % (MANUAL) 0 %; BAND NEUTROPHILS % (MANUAL) 0 %
[2018-12-30 05:00] LABS: CALCIUM 8.8 mg/dL (8.5-10.3)
[2018-12-30 05:10] LABS: BASOPHILS # (MANUAL) 0.2 10^3/uL (0-0.1); BASOPHILS % (MANUAL) 1 %; EOSINOPHILS # (MANUAL) 0.9 10^3/uL (0-0.7); LYMPHOCYTES # (MANUAL) 4.6 10^3/uL (1.5-3.5); LYMPHOCYTES % (MANUAL) 21 %; METAMYELOCYTES % (MANUAL) 2 %; MONOCYTES # (MANUAL) 1.1 10^3/uL (0.0-1.0); MYELOCYTES % (MANUAL) 7 %
[2018-12-30 05:12] LABS: RBC MORPHOLOGY (MULTIPLE) 2+ HYPOCHROMASIA (NORMAL)
[2018-12-30 05:13] LABS: DIFFERENTIAL COMMENT MANUAL DIFFERENTIAL; PLATELET ESTIMATE, MANUAL NORMAL (130-450,000) (NORMAL); PLATELET MORPHOLOGY NORMAL APPEARANCE (NORMAL)
[2018-12-30] MEDS: LEVOTHYROXINE 75 MCG TABLET PO SCH (06:14)
[2018-12-30] MEDS: LEVOTHYROXINE 112 MCG TABLET PO SCH (06:15)
[2018-12-30] MEDS ORDERED: POLYETHYLENE GLYCOL 3350 17 GM PACKET PO PRN (09:00)
[2018-12-30] MEDS ORDERED: IOVERSOL 320 100 ML VIAL IVP ONE ×2 (09:20→16:32)
[2018-12-30] MEDS ORDERED: IOVERSOL 320 50 ML VIAL ONE (09:20)
[2018-12-30] MEDS: FERROUS GLUCONATE 324 MG TABLET PO SCH (09:23)
[2018-12-30] MEDS: INSULIN ASPART 300 UNIT/3 ML PEN SUBQ SCH ×3 (09:23→18:15)
[2018-12-30] MEDS: INSULIN NPH HUMAN 100 UNIT/1 ML 10 ML MDV SUBQ SCH (09:24)
[2018-12-30] MEDS: SACCHAROMYCES BOULARDII 250 MG CAPSULE PO SCH ×2 (09:24→18:15)
[2018-12-30] MEDS: SPIRONOLACTONE 25 MG TABLET PO SCH (09:24)
[2018-12-30] MEDS: ENOXAPARIN 40 MG/0.4 ML SYRINGE SUBQ SCH (09:24)
[2018-12-30] MEDS: ASPIRIN EC 81 MG TABLET PO SCH (09:24)
[2018-12-30] MEDS: VANCOMYCIN INJ 1 GM in SODIUM CHLORIDE 0.9% 250 ML IV SCH (09:47)
[2018-12-30] MEDS: NYSTATIN POWDER 15 GM TOP SCH (09:52)
--- NOTE | 2018-12-30 12:06 | PROVIDER PROGRESS NOTE ---
<Leonardo Lopes - Last Filed: 12/30/18 17:48> Subjective - Prog Note Date Prog Note Date: 12/30/18 Prog Note Time: 12:07 - Subjective Pt reports feeling: No change (Mrs. Payne is drowsy this am, wakes up easily to voice. She is able to verbalize who she is, where she is, and the events that occured yesterday with going to the OR and plan to go back again today. Her mentation does not seem to be altered, other than continued lethargy. She is experiencing pain at the surgical site of her R abdomen.) Current Medications - Current Medications Current Medications: Allergies No Known Drug Allergies Allergy (Verified 12/20/18 22:03) Home Medications Lovastatin [Altoprev] 40 mg ORAL QPM 06/23/14 [History Confirmed 12/20/18] Insulin Regular, Human [Novolin R] 28 units SUBQ TIDWM 06/22/15 [History Confirmed 12/20/18] PARoxetine [Paxil] 40 mg PO QPM 06/22/15 [History Confirmed 12/20/18] Carvedilol 3.125 mg PO DAILY 01/29/16 [History Confirmed 12/20/18] Furosemide 40 mg PO DAILY 08/23/18 [History Confirmed 12/20/18] Levalbuterol [Xopenex] 3 ml INH QID PRN 11/18/18 [History Confirmed 12/21/18] Ascorbic Acid [Vitamin C] 500 mg PO DAILY 12/20/18 [History Confirmed 12/21/18] Aspirin [Aspirin EC] 81 mg PO DAILY 12/20/18 [History Confirmed 12/20/18] C,E,Zinc,Copper 11/Xtdqm5d/Lut [Ocuvite Adult 50 Plus Softgel] 1 each PO DAILY 12/20/18 [History Confirmed 12/20/18] Calcium Carbonate [Calcium] 500 mg PO DAILY 12/20/18 [History Confirmed 12/20/18] Cholecalciferol (Vitamin D3) [Vitamin D3] 1,000 unit PO DAILY 12/20/18 [History Confirmed 12/20/18] Garlic 1,000 mg PO DAILY 12/20/18 [History Confirmed 12/20/18] Insulin Detemir [Levemir Flextouch] 37 units SUBQ BID 12/20/18 [History Confirmed 12/20/18] Loratadine 10 mg PO DAILY 12/20/18 [History Confirmed 12/20/18] Multivitamin [Multivitamins] 1 each PO DAILY 12/20/18 [History Confirmed 12/20/18] Active Medications Generic Name Dose Route Start Last Admin Trade Name Freq PRN Reason Stop Dose Admin Acetaminophen 650 mg 12/21/18 01:41 12/29/18 20:39 Tylenol PO 650 mg Q6HR PRN Administration Pain 1 to 4 Aspirin 81 mg 12/21/18 09:00 12/30/18 09:24 Ecotrin PO Not Given DAILY SHANNAN Atorvastatin Calcium 40 mg 12/21/18 21:00 12/29/18 20:39 Lipitor PO 40 mg QPM SHANNAN Administration Enoxaparin Sodium 40 mg 12/25/18 09:00 12/30/18 09:24 Lovenox SUBQ Not Given DAILY [facility] Ferrous Gluconate 324 mg 12/29/18 09:00 12/30/18 09:23 Fergon PO Not Given DAILYWM [facility] Vancomycin HCl 1 gm/ Sodium 250 mls @ 250 mls/hr 12/25/18 21:00 12/30/18 11:35 Chloride IV Infused Q12H SHANNAN Infusion Clindamycin Phosphate 50 mls @ 50 mls/hr 12/29/18 18:00 12/30/18 07:17 Cleocin 900 Mg/50 Ml IV Infused Q6HR SHANNAN Infusion Piperacillin Sod/Tazobactam 100 mls @ 200 mls/hr 12/29/18 16:00 12/30/18 10:40 Sod 4.5 gm/ Sodium Chloride IV Infused Q6H SHANNAN Infusion Sodium Chloride 1,000 mls @ 40 mls/hr 12/29/18 17:00 12/29/18 20:23 Normal Saline 0.9% IV 40 mls/hr .Q25H SHANNAN Infusion Insulin Aspart 28 unit 12/24/18 18:00 12/30/18 11:36 Novolog SUBQ Not Given TIDWM [facility] Insulin Human NPH 38 unit 12/24/18 21:00 12/30/18 09:24 Novolin N SUBQ Not Given BID [facility] Insulin Human Regular 1 - 9 unit 12/29/18 13:00 12/30/18 06:14 Novolin R SUBQ Not Given Q6HR SHANNAN Protocol Levalbuterol HCl 1.25 mg 12/24/18 12:57 Xopenex INH QID PRN Shortness of Air/Wheezing Levothyroxine Sodium 112 mcg 12/21/18 07:00 12/30/18 06:15 Synthroid PO 112 mcg QDAC SHANNAN Administration Levothyroxine Sodium 75 mcg 12/21/18 07:00 12/30/18 06:14 Synthroid PO 75 mcg QDAC SHANNAN Administration Nystatin 1 applic 12/21/18 21:00 12/30/18 09:52 Nystop TOP 1 applic BID SHANNAN Administration Paroxetine HCl 40 mg 12/24/18 21:00 12/29/18 20:39 Paxil PO 40 mg QPM SHANNAN Administration Polyethylene Glycol 17 gm 12/30/18 09:00 Miralax PO DAILY PRN Bowel Protocol Saccharomyces Boulardii 250 mg 12/23/18 17:00 12/30/18 09:24 Florastor PO Not Given BIDWM SHANNAN Sodium Chloride 10 ml 12/21/18 09:00 12/30/18 09:51 Normal Saline Flush 0.9% IVP 30 ml 0100,0900,1700 SHANNAN Administration Sodium Chloride 10 ml 12/21/18 01:41 12/30/18 04:39 Normal Saline Flush 0.9% IVP 50 ml PRN PRN Administration NEEDED PER PROVIDER ORDERS Sodium Chloride 20 ml 12/28/18 01:27 12/28/18 07:58 Normal Saline Flush 0.9% IVP 20 ml PRN PRN Administration After Blood Draw Spironolactone 25 mg 12/25/18 09:00 12/30/18 09:24 Aldactone PO Not Given DAILY SHANNAN Objective - Vital Signs/Intake & Output Reviewed Vital Signs: Yes Vital Signs: Vital Signs x48h Temp Pulse Resp BP Pulse Ox 12/30/18 11:00 66 9 L 150/61 H 100 12/30/18 10:00 62 12 111/47 L 99 12/30/18 09:00 36.1 C L 62 12 125/48 L 99 12/30/18 07:00 69 19 117/97 H 96 12/30/18 06:00 67 15 104/67 99 12/30/18 05:00 66 16 127/42 L 94 Intake & Output: Intake & Output 0712/28/18 12/29/18 12/30/18 23:59 23:59 23:59 23:59 Intake Total 1280 2323 9512.096 0074 Output Total 2850 4300 1500 600 Balance -1569 213.333 450 - Objective General Appearance: positive: Mild distress (only appears in distress when inspecting her abdominal wound site, which is very tender), Lethargic, Other (morbidly obese woman, appearing stated age) Eyes Bilateral: positive: Normal inspection, PERRL ENT: positive: No signs of dehydration Neck: positive: Nml inspection, Other (skin tags under skin fold of the neck) Respiratory: positive: Chest non-tender, No respiratory distress, Breath sounds nml (slightly diminished throughout) Cardiovascular: positive: Regular rate & rhythm, No murmur, No gallop. negative: JVD present Abdomen: positive: Tenderness, Other (Obese pannus with guaze dressing to R side abdominal wall with serous drainage leaking through) Back: positive: Nml inspection Skin: positive: Warm, Dry, Other (simon abdominal wound is a deep red in color, blanchable, increased warmth to touch) Extremities: positive: Non-tender, Nml appearance, Pedal edema (trace-1+ edema to all extremeties) Neurologic/Psychiatric: positive: Oriented x3, CN's nml (2-12), Motor nml, Sensation nml, Mood/affect nml - Lab Results Fish Bones: 12/30/18 04:40 12/30/18 04:40 Other Labs: Lab Results x24hrs 12/30/18 12/30/18 Range/Units 04:40 04:40 WBC 21.7 H (4.8-10.8) x10^3/uL RBC 3.05 L (4.20-5.40) 10^6/uL Hgb 9.1 L (12.0-16.0) g/dL Hct 30.6 L (37.0-47.0) % MCV 100.3 H (81.0-99.0) fL MCH 29.8 (27.0-31.0) pg MCHC 29.7 L (32.0-36.0) g/dL RDW 13.4 (12.0-15.0) % Plt Count 375 (130-450) 10^3/uL MPV 8.9 (7.9-10.8) fL Neut # (Auto) Not Reportable Lymph # (Auto) Not Reportable [place] # (Auto) Not Reportable Eos # (Auto) Not Reportable Baso # (Auto) Not Reportable Absolute Nucleated RBC Not Reportable Total Counted 100 Band Neuts % (Manual) 0 (0 - 10) % Abnorm Lymph % (Manual) 0 % Metamyelocytes % 2 H ( - 0) % Myelocytes % 7 H ( - 0) % Nucleated RBC % Not Reportable Neutrophils # (Manual) 13.0 H (1.5-6.6) 10^3/uL Lymphocytes # (Manual) 4.6 H (1.5-3.5) 10^3/uL Monocytes # (Manual) 1.1 H (0.0-1.0) 10^3/uL Eosinophils # (Manual) 0.9 H (0-0.7) 10^3/uL Basophils # (Manual) 0.2 H (0-0.1) 10^3/uL Differential Comment MANUAL DIFFERENTIAL WBC Morphology NORMAL APPEARANCE (NORMAL) Platelet Estimate NORMAL (130-450,000) (NORMAL) Platelet Morphology NORMAL APPEARANCE (NORMAL) RBC Morph Micro Appear 2+ HYPOCHROMASIA (NORMAL) Sodium 139 (135-145) mmol/L Potassium 4.4 (3.5-5.0) mmol/L Chloride 97 L (101-111) mmol/L Carbon Dioxide 32 (21-32) mmol/L Anion Gap 10.0 (6-13) BUN 15 (6-20) mg/dL Creatinine 1.0 (0.4-1.0) mg/dL Estimated GFR (MDRD) 53 L (>89) Glucose 103 H (70-100) mg/dL Calcium 8.8 (8.5-10.3) mg/dL - Diagnostic Imaging Diagnostic Imaging Comments: Abdominal CT- Sepsis Event Note (H) - Evaluation Current Stage of Sepsis: Resolved Possible source of Sepsis: positive: Skin/soft tissue - Sepsis Criteria Sepsis Criteria: Recorded Heart Rate greater than 90 bpm, WBC count greater than 10% bands, WBC count greater than 12,000 or less than 4000 Assessment/Plan - Problem List (1) Necrotizing fasciitis Impression: Impression: The cellulitic area and carbuncle of the abdominal wall has been followed by Surgeons ever since it was I&D'd 3 days ago. The culture from the I&D sample is growing GPC (it was a send out, and took a long time, since it was ordered to do aerobic and anaerobic cultures). Yesterday morning, the covering surgeon, Dr. Tinajero found it to be indurated and darker (purple). Because of this and the continuing elevation of white blood count (up to 20K today), she was taken to the OR where general surgeon Dr. Tinajero found her to have necrotizing fasciitis. A CT abdomen was done this AM prior to a second exploratory operation this afternoon. He took to the operating room again today for further surgical management and to observe in margins are clear. From Dr. Tinajero's operative note: "Necrotic skin and subcutaneous fat immediately deep to incision and involving tissue lateral, inferior and superior to incision, but not extending deep to fascia which appeared intact and viable. Edema of bleeding, viable tissues was noted at wound boundaries throughout following debridement. The wound measured approximately 20 cm in length extending down to fascia as the deep margin and extending cranially for 10-15 cm and caudally for 5-10 cm. All wound edges appeared viable following the debridement." -Antibiotic coverage was changed on 12/29 in the discovery of nec fasc from Cefepime and Vancomycin (which was reviewed with infectious disease at [facility] 6 days ago on a consult call, and ID felt that to be adequate antibiotic coverage), to Pip/Tazo iv, Clindamycin iv and continue Vancomycin iv. -Start gentle hydration, hold Lasix dose. -She will require transfer to higher level of care for management of this infection and wound (2) Cellulitis Impression: As above. Will check for sepsis with L.A. Qualifiers: Site of cellulitis: trunk Site of cellulitis of trunk: abdominal wall Qualified Code(s): L03.311 - Cellulitis of abdominal wall (3) HFrEF (heart failure with reduced ejection fraction) Impression: There were no signs of volume overload and she was kept on her usual home medications ever since the beginning of this admission. The Anesthesiologist who saw her preop yesterday, felt that she was confused and an ABG was done. This showed pCO2 of 50, adequate pO2 of 93 with good saturation. There is probably some CO2 retention because of her lethargy and hypoventilation. The patient required a ventilator in the OR and then BiPAP in PACU. She is being transferred to the ICU postop. We will hold the Lasix temporarily while she is getting no oral hydration. Qualifiers: Heart failure chronicity: chronic Qualified Code(s): I50.22 - Chronic systolic (congestive) heart failure (4) Diabetes mellitus with hyperglycemia Impression: She has had better glucose control over the past 1 week, despite the worsening white blood count. She is on high doses of long-acting insulin, nutritional coverage plus sliding scale insulin on top of that. In setting of current NPO status, her nutritional insulin has been help. -Accu checks q6 hrs per NPO protocol with correctional insulin only Qualifiers: Diabetes mellitus type: type 2 Diabetes mellitus long chain beamer insulin use: with long chain beamer use Qualified Code(s): E11.65 - Type 2 diabetes mellitus with hyperglycemia; Z79.4 - USP (current) use of insulin (5) Hypothyroidism Impression: She remains on her home dose of thyroid replacement. (6) Morbid obesity with BMI of 50.0-59.9, adult Impression: Continue with calorie restricted, carb controlled diet when it is advanced PT will remain on hold since she is in the ICU post-op, in serious condition (7) Anemia Impression: Iron replacement was started orally several days ago Qualifiers: Anemia type: iron deficiency (8) Depression with anxiety Impression: She is on her usual home medications while here (9) Diabetic ketoacidosis Impression: Resolved early after admission Qualifiers: Diabetes mellitus type: type 2 (10) Sepsis due to cellulitis Impression: This was her initial presentation and cleared in parallel with the DKA. We will re-check for sepsis with lactic acid today <Brittnee Lord - Last Filed: 12/30/18 19:31> Subjective - Subjective Subjective: I am resuming care of this patient as hospitalist on service. She was seen yesterday by attending as well as CHIEF INFORMATION SECURITY OFFICER student. Yesterday she had to be taken to the operating room because of a change in the skin color of her cellulitis felt to be possible necrotizing fasciitis. Pathology is showing necrotizing fasciitis. Dr. Tinajero saw the patient again today and has ordered a CT scan showing continued possible changes of necrotizing fasciitis. No air in the wound. He is taken her back to the operating room and has requested that she be transferred to [facility]. The patient is tired, slightly confused. Aware that she still in the hospital. More than anything complains of right mid abdominal pain going toward the mid axillary line where her cellulitis has been. She does not know the date, Objective - Vital Signs/Intake & Output Vital Signs: Vital Signs x48h Temp Pulse Pulse Resp BP Pulse Ox 12/30/18 18:16 63 12/30/18 18:00 63 20 114/61 93 12/30/18 17:09 81 12/30/18 16:45 36.5 C 90 25 H 130/61 97 12/30/18 14:11 122/65 12/30/18 14:09 104/44 L 12/30/18 14:00 36.7 C 68 14 100 12/30/18 13:00 67 9 L 99 12/30/18 12:00 65 13 133/54 H 99 Intake & Output: Intake & Output 12/27/18 12/28/18 12/29/18 12/30/18 23:59 23:59 23:59 23:59 Intake Total 1280 2323 2413.330 6878.991 Output Total 2850 4300 1500 1750 Balance -1569 -1976 213.333 202.991 - Objective Comments/Other: She is mildly lethargic, but opens her eyes to my voice. Answers yes/no questions, grimaces with pain as I examine her wound. Morbidly obese at 158 kg and 5 foot 8 inches tall. Head and neck exam is unremarkable. Normal facial symmetry. Slightly slack bases while she is sleeping Lungs are clear with unlabored respiration diminished breath sounds at the bases Regular rate and rhythm Abdomen is super obese, soft, not distended, expresses no pain until I get near her surgical wound site. Site is covered at this time. Legs are huge and treat trunklike. Edematous. - Lab Results Fish Bones: 12/30/18 04:40 12/30/18 04:40 Other Labs: Lab Results x24hrs 12/30/18 12/30/18 12/30/18 Range/Units 17:50 04:40 04:40 WBC 21.7 H (4.8-10.8) x10^3/uL RBC 3.05 L (4.20-5.40) 10^6/uL Hgb 9.1 L (12.0-16.0) g/dL Hct 30.6 L (37.0-47.0) % MCV 100.3 H (81.0-99.0) fL MCH 29.8 (27.0-31.0) pg MCHC 29.7 L (32.0-36.0) g/dL RDW 13.4 (12.0-15.0) % Plt Count 375 (130-450) 10^3/uL MPV 8.9 (7.9-10.8) fL Neut # (Auto) Not Reportable Lymph # (Auto) Not Reportable [place] # (Auto) Not Reportable Eos # (Auto) Not Reportable Baso # (Auto) Not Reportable Absolute Nucleated RBC Not Reportable Total Counted 100 Band Neuts % (Manual) 0 (0 - 10) % Abnorm Lymph % (Manual) 0 % Metamyelocytes % 2 H ( - 0) % Myelocytes % 7 H ( - 0) % Nucleated RBC % Not Reportable Neutrophils # (Manual) 13.0 H (1.5-6.6) 10^3/uL Lymphocytes # (Manual) 4.6 H (1.5-3.5) 10^3/uL Monocytes # (Manual) 1.1 H (0.0-1.0) 10^3/uL Eosinophils # (Manual) 0.9 H (0-0.7) 10^3/uL Basophils # (Manual) 0.2 H (0-0.1) 10^3/uL Differential Comment MANUAL DIFFERENTIAL WBC Morphology NORMAL APPEARANCE (NORMAL) Platelet Estimate NORMAL (130-450,000) (NORMAL) Platelet Morphology NORMAL APPEARANCE (NORMAL) RBC Morph Micro Appear 2+ HYPOCHROMASIA (NORMAL) Bld Gas Analysis Time 1759 Sample Site RIGHT RADIAL ABG pH 7.31 L (7.35-7.45) ABG pCO2 60 H* (34-45) mmHg ABG pO2 50 L* (80-100) mmHg ABG HCO3 29.7 H (22.0-26.0) mmol/L ABG Total CO2 31.5 H (21.0-29.0) MMOL/L ABG O2 Saturation 84 L* (94-98) % ABG Base Excess 2.6 (-2.0-3.0) mmol/L Frankie Test POSITIVE Respiration Rate 20 b/min O2 Delivery Device VENTILATOR Vent Mode SIMV FiO2 40.00 Tidal Volume 450 mL PEEP 5 cmH2O Pressure Support Vent 12 cmH2O Sodium 139 (135-145) mmol/L Potassium 4.4 (3.5-5.0) mmol/L Chloride 97 L (101-111) mmol/L Carbon Dioxide 32 (21-32) mmol/L Anion Gap 10.0 (6-13) BUN 15 (6-20) mg/dL Creatinine 1.0 (0.4-1.0) mg/dL Estimated GFR (MDRD) 53 L (>89) Glucose 103 H (70-100) mg/dL Calcium 8.8 (8.5-10.3) mg/dL ABX Reporting Has patient been on IV antibiotics over the past 48 hours?: Yes Assessment/Plan - Problem List (1) Necrotizing fasciitis Impression: Patient has been seen and examined by me with editing of CHIEF INFORMATION SECURITY OFFICER student note. Assessment/plan 1. Necrotizing fasciitis. The patient presented as a cellulitis of the abdominal wall. She is been here 9 days. While she was on broad-spectrum antibiotics with cefepime vancomycin and Flagyl, she was changed to cefepime and vancomycin when she grew out MRSA. In spite of adequate coverage, she continued to have an elevated white cell count. She did drift down to about 15 or 16,000 but started expressing more pain in the cellulitis area. Ultrasound showed a small area of fluid collection not big enough to incise and debride. When she continued to have pain and elevated white cell count and lack of resolution to the cellulitis general surgery became involved. They did do a wound culture. Yesterday her wound started changing color and she was taken to the operating room. Antibiotics have been changed to vancomycin, clindamycin, Zosyn. CT the abdomen wall today shows continued fluid and edema changes. No gas in the soft tissue. Surgery is taken her back to the operating room and finds her to have edema and changes of the fat. But not clearly convincing for further necrotizing fasciitis. Nevertheless Dr. Tinajero has spoken to Dr. Canas at [facility] and the patient is accepted in transfer for possible necrotizing fasciitis. 2. Chronic respiratory failure with hypercapnia. This lady is morbidly obese and has probable obstructive sleep apnea. Anesthesia has noted that her anatomy makes it difficult to intubate. Her blood gas after surgery shows a retaining mild CO2. pH 7.31, PCO2 60, PO2 50. Bicarb is 31. She is still mildly acidotic. As such I am increasing her ventilatory rate andFi02. Dr. Canas has requested that we keep her intubated for transfer. 3. Heart failure with reduced ejection fraction. Her overall fluid intake is negative over the last few days. When you add up all of her intake and output balance is she is about 750 cc negative for her stay. At this time she is not requiring aggressive fluid resuscitation nor is she on pressors. 4. Type 2 diabetes mellitus, initially admitted as DKA, then transition to Lantus and short acting insulin. She required such increasing doses of Lantus and short-acting insulin I put her back on a insulin drip. She has been taken off the insulin drip again and transition over to high-dose long-acting insulin, fixed dosing nutritional coverage, plus sliding scale. She has been n.p.o. for a couple of days and glucose the was 120, 188, 186, 183. Today she is 112, 85, 117, 124, 146. No changes in insulin dosing for now.
--- NOTE | 2018-12-30 13:55 | CT Report ---
Reason: elevated WBC, necrotizing fasciitis abd wall Procedure Date: 12/30/2018 Accession Number: [id number] / [id number] Procedure: CT - Abdomen/Pelvis W CPT Code: FULL RESULT: EXAM: CT ABDOMEN AND PELVIS EXAM DATE: 12/30/2018 12:33 PM. CLINICAL HISTORY: Elevated WBC, necrotizing fasciitis abd wall. COMPARISONS: ABDOMEN/PELVIS W/ 08/30/2018 8:47 AM. TECHNIQUE: Routine helical CT imaging was performed through the abdomen and pelvis. IV contrast: OPTI 320 100 mL. Enteric contrast: Yes. Reconstructions: Coronal and sagittal. In accordance with CT protocol optimization, one or more of the following dose reduction techniques were utilized for this exam: automated exposure control, adjustment of mA and/or KV based on patient size, or use of iterative reconstructive technique. FINDINGS: Lung Bases: Small amount of dependent changes right greater than left. Liver: Normal as visualized. Gallbladder/Bile Ducts: Unremarkable. Spleen: Normal as visualized. Pancreas: Normal. Adrenal Glands: Normal. Kidneys: Normal as visualized. Peritoneal Cavity/Bowel: There is no bowel obstruction, free fluid or free air. Pelvic Organs: Within normal limits. Vasculature: Markedly atherosclerotic without aneurysm. Bones: No significant abnormality. Other: The superficial surgical wound is noted. Caudal and cranial extent of the inflammatory soft tissue changes were discussed and described with the surgeon in person. Briefly, inferior extent corresponds roughly to the superior iliac crest with cranial extent approximately in the region of the anterior costochondral margins of the ipsilateral thorax. The skin incision lies along the lower portion of the infectious process. In the soft tissues external to the abdominal wall is a 21.5 cm long large geographic area which appears phlegmonous with surrounding fat stranding and no definite walled-off fluid collection in keeping with known ongoing fasciitis. The superficial extent of the collection cannot be measured due to the patient's body habitus and body contact with gantry. In terms of depth of involvement, no fluid collection is seen within the underlying abdominal wall. There is no gas in superficial or deep tissues. Fat planes on the visceral side of the abdominal wall remain pristine. IMPRESSION: Clinically known fasciitis status post initial operative intervention. CRITICAL RESULT: The findings were discussed with Dr. Tinajero on 12/30/2018 at 1:15 PM. WINNIE
[2018-12-30] MEDS ORDERED: SODIUM CHLORIDE 0.9% 1,000 ML IV ONE (15:02)
--- NOTE | 2018-12-30 15:19 | PROVIDER PROGRESS NOTE ---
Subjective - General Admit Date: 12/21/18 Procedure Date: 12/29/18 Post Op Days: 1 Procedure Performed: debridement of abd wall - Review of Systems Wound/Incisions: positive: Dressing dry and intact General: positive: Other (mild discomfort at operative site) Pulmonary: positive: No symptoms Cardiovascular: positive: No symptoms Gastrointestinal: positive: No symptoms All Other Systems: positive: Reviewed and negative Objective - Patient Data Reviewed Vital Signs: Yes Vital Signs: Vital Signs x48h Temp Pulse Resp BP Pulse Ox 12/30/18 14:11 122/65 12/30/18 14:09 104/44 L 12/30/18 14:00 36.7 C 68 14 100 12/30/18 13:00 67 9 L 99 12/30/18 12:00 65 13 133/54 H 99 12/30/18 11:00 66 9 L 150/61 H 100 12/30/18 10:00 62 12 111/47 L 99 12/30/18 09:00 36.1 C L 62 12 125/48 L 99 Weight: Weight 12/28/18 12/29/18 12/30/18 23:59 23:59 23:59 Weight (kg) 158 kg 158 kg 158 kg Intake & Output: Intake and Output Totals x24h 12/28/18 12/29/18 12/30/18 23:59 23:59 23:59 Intake Total 2323 7203.195 5027 Output Total 4300 1500 600 -1976 213.333 450 - Lab Results Lab Results: 12/30/18 04:40 12/30/18 04:40 Other Lab Results: Lab Results x24hrs 12/30/18 12/30/18 Range/Units 04:40 04:40 WBC 21.7 H (4.8-10.8) x10^3/uL RBC 3.05 L (4.20-5.40) 10^6/uL Hgb 9.1 L (12.0-16.0) g/dL Hct 30.6 L (37.0-47.0) % MCV 100.3 H (81.0-99.0) fL MCH 29.8 (27.0-31.0) pg MCHC 29.7 L (32.0-36.0) g/dL RDW 13.4 (12.0-15.0) % Plt Count 375 (130-450) 10^3/uL MPV 8.9 (7.9-10.8) fL Neut # (Auto) Not Reportable Lymph # (Auto) Not Reportable [place] # (Auto) Not Reportable Eos # (Auto) Not Reportable Baso # (Auto) Not Reportable Absolute Nucleated RBC Not Reportable Total Counted 100 Band Neuts % (Manual) 0 (0 - 10) % Abnorm Lymph % (Manual) 0 % Metamyelocytes % 2 H ( - 0) % Myelocytes % 7 H ( - 0) % Nucleated RBC % Not Reportable Neutrophils # (Manual) 13.0 H (1.5-6.6) 10^3/uL Lymphocytes # (Manual) 4.6 H (1.5-3.5) 10^3/uL Monocytes # (Manual) 1.1 H (0.0-1.0) 10^3/uL Eosinophils # (Manual) 0.9 H (0-0.7) 10^3/uL Basophils # (Manual) 0.2 H (0-0.1) 10^3/uL Differential Comment MANUAL DIFFERENTIAL WBC Morphology NORMAL APPEARANCE (NORMAL) Platelet Estimate NORMAL (130-450,000) (NORMAL) Platelet Morphology NORMAL APPEARANCE (NORMAL) RBC Morph Micro Appear 2+ HYPOCHROMASIA (NORMAL) Sodium 139 (135-145) mmol/L Potassium 4.4 (3.5-5.0) mmol/L Chloride 97 L (101-111) mmol/L Carbon Dioxide 32 (21-32) mmol/L Anion Gap 10.0 (6-13) BUN 15 (6-20) mg/dL Creatinine 1.0 (0.4-1.0) mg/dL Estimated GFR (MDRD) 53 L (>89) Glucose 103 H (70-100) mg/dL Calcium 8.8 (8.5-10.3) mg/dL C&S: Staph aureus, Sensitivity pending. - Imaging Results Radiology Imaging: positive: Final report received, Discussed with rads, EMP read indepedently Imaging Results Comments: CT abd/pelvis shows extension of the infection primarily cephalad and lateral to incisional site; confined to tissues anterior to fascia; no intraabdominal or subfascial involvement noted. - Current Medications Current Medications: Current Medications Generic Name Dose Route Start Last Admin Trade Name Freq PRN Reason Stop Dose Admin Acetaminophen 650 mg 12/21/18 01:41 12/29/18 20:39 Tylenol PO 650 mg Q6HR PRN Administration Pain 1 to 4 Aspirin 81 mg 12/21/18 09:00 12/30/18 09:24 Ecotrin PO Not Given DAILY SHANNAN Atorvastatin Calcium 40 mg 12/21/18 21:00 12/29/18 20:39 Lipitor PO 40 mg QPM SHANNAN Administration Enoxaparin Sodium 40 mg 12/25/18 09:00 12/30/18 09:24 Lovenox SUBQ Not Given DAILY SHANNAN Ferrous Gluconate 324 mg 12/29/18 09:00 12/30/18 09:23 Fergon PO Not Given DAILYWM SHANNAN Vancomycin HCl 1 gm/ Sodium 250 mls @ 250 mls/hr 12/25/18 21:00 12/30/18 11:35 Chloride IV Infused Q12H SHANNAN Infusion Piperacillin Sod/Tazobactam 100 mls @ 200 mls/hr 12/29/18 16:00 12/30/18 10:40 Sod 4.5 gm/ Sodium Chloride IV Infused Q6H SHANNAN Infusion Sodium Chloride 1,000 mls @ 40 mls/hr 12/29/18 17:00 12/29/18 20:23 Normal Saline 0.9% IV 40 mls/hr .Q25H SHANNAN Infusion Insulin Aspart 28 unit 12/24/18 18:00 12/30/18 11:36 Novolog SUBQ Not Given TIDWM [facility] Insulin Human NPH 38 unit 12/24/18 21:00 12/30/18 09:24 Novolin N SUBQ Not Given BID [facility] Insulin Human Regular 1 - 9 unit 12/29/18 13:00 12/30/18 13:27 Novolin R SUBQ Not Given Q6HR [facility] Protocol Levothyroxine Sodium 112 mcg 12/21/18 07:00 12/30/18 06:15 Synthroid PO 112 mcg QDAC SHANNAN Administration Levothyroxine Sodium 75 mcg 12/21/18 07:00 12/30/18 06:14 Synthroid PO 75 mcg QDAC SHANNAN Administration Nystatin 1 applic 12/21/18 21:00 12/30/18 09:52 Nystop TOP 1 applic BID SHANNAN Administration Paroxetine HCl 40 mg 12/24/18 21:00 12/29/18 20:39 Paxil PO 40 mg QPM SHANNAN Administration Saccharomyces Boulardii 250 mg 12/23/18 17:00 12/30/18 09:24 Florastor PO Not Given BIDWM SHANNAN Sodium Chloride 10 ml 12/21/18 09:00 12/30/18 09:51 Normal Saline Flush 0.9% IVP 30 ml 0100,0900,1700 SHANNAN Administration Sodium Chloride 10 ml 12/21/18 01:41 12/30/18 04:39 Normal Saline Flush 0.9% IVP 50 ml PRN PRN Administration NEEDED PER PROVIDER ORDERS Sodium Chloride 20 ml 12/28/18 01:27 12/28/18 07:58 Normal Saline Flush 0.9% IVP 20 ml PRN PRN Administration After Blood Draw Spironolactone 25 mg 12/25/18 09:00 12/30/18 09:24 Aldactone PO Not Given DAILY SHANNAN - Physical Exam Wound/Incisions: positive: Dressing dry and intact General Appearance: positive: No acute distress, Alert Neck: positive: No JVD Respiratory: positive: Chest non-tender, No respiratory distress, Breath sounds nml Cardiovascular: positive: Regular rate & rhythm, No murmur, No gallop Abdomen: positive: Non-tender, Other (skin around dressing appears normal, nontender) Extremities: positive: No pedal edema. negative: Calf tenderness ABX Reporting Has patient been on IV antibiotics over the past 48 hours?: Yes Impression/Plan - Problem List Problem List: Necrotizing fasciitis: due to Staph aureus, ? MRSA, clinically stable but persistent elevated WBC and CT findings suggest progression of disease despite triple agent antibtiotic therapy and agressive debridement yesterday. Rec: return to OR for further exploration and debridement as appropriate. Consider transfer to tertiary care center after above considering severity of illness and need for complex ongoing treatment. Discussed with Dr. Lord, who agrees.
[2018-12-30] MEDS ORDERED: LACTATED RINGERS 1,000 ML IV ONE (15:20)
--- NOTE | 2018-12-30 16:26 | OPERATIVE REPORT ---
Operative Report - General Admit Date: 12/21/18 Procedure Date: 12/30/18 Planned Procedure: Second look Exploration and debridement of abdominal wall Pre-Op Diagnosis: Necrotizing fasciitis of abdominal wall Procedure Performed: Debridement of abdominal wall for necrotizing fasciitis Post Op Diagnosis: Necrotizing fasciitis of abdominal wall - Procedure Note Primary Surgeon: Garrett Tinajero MD FACS Anesthesia Provider: Stuart Jones CRNA Anesthesia Technique: General ET tube Pathology: soft tissue of abdominal wall Estimated Blood Loss (mL): 200 Indications: 83 yo female with necrotizing fasciitis of the RUQ abdominal wall, s/p debridement yesterday, with persistent leukocytosis and CT findings concerning for extension of the infection. Plan is re exploration and further debridement as indicated. Findings: Necrotic skin and subcutaneous fat immediately deep to incision and involving tissue lateral, inferior and superior to incision, but not extending deep to fascia which appeared intact and viable. Edema of bleeding, viable tissues was noted at wound boundaries throughout following debridement. The wound measured approximately 20 cm in length extending down to fascia as the deep margin and extending cranially for 10-15 cm and caudally for 5-10 cm. All wound edges appeared viable following the debridement. Complications: None - Other Other Information/Narrative: After informed consent pt was taken to the OR and placed under general endotracheal anesthesia. She was placed supine on the operating table in partial left lateral decubitus position to expose the right lenora lateral trunk, which was prepped with iodoform solution and draped in the usual sterile fashion. The wound was carefully explored with findings as noted above. Necrotic and/or infected appearing skin and subcutaneous tissue was sharply debrided with scalpel and/or electrocautery, which also provided hemostasis. Resected tissue was sent for pathologic evaluation. Debridement was carried down to intact and viable appearing anterior abdmoninal wall fascia. The resulting wound was then copiously irrigated with a jet irrigation system, and after hemostasis had been confirmed, the wound was dressed with two unwrapped saline soaked Kerlix sponges, followed by ABDs and an Ioban adhesive dressing cover. The procedure was then terminated without apparent complication. Sponge and needle and instrument counts were correct x 2. Pt was transferred to the PACU/ICU in serious but stable condition. Pt appeared to tolerate the procedure well.
[2018-12-30] MEDS ORDERED: IOVERSOL 320 50 ML VIAL PO ONE (16:38)
--- NOTE | 2018-12-30 17:53 | Discharge Plan ---
Discharge Plan Problem Reviewed?: Yes Disposition: 02 Transfer Acute Care Hosp Condition: Serious No Smoking: If you smoke, Please STOP! Call for help. Follow-up with: Ehsan Arnold MD [Primary Care Provider] -
[2018-12-30 17:59] LABS: ABG HCO3 29.7 mmol/L (22.0-26.0); ABG PH 7.31 (7.35-7.45)
[2018-12-30 18:00] LABS: ABG BASE EXCESS 2.6 mmol/L (-2.0-3.0); ABG TCO2 31.5 MMOL/L (21.0-29.0); ALLEN TEST POSITIVE
[2018-12-30] MEDS ORDERED: PROPOFOL 1000 MG/100 ML 100 ML IV SCH (18:00)
[2018-12-30 18:03] LABS: ABG PCO2 60 mmHg (34-45); ABG PO2 50 mmHg (80-100)
[2018-12-30 18:04] LABS: ABG OXYGEN SATURATION 84 % (94-98)
[2018-12-30] MEDS: SODIUM CHLORIDE 0.9% 1,000 ML IV SCH (18:39)
--- NOTE | 2018-12-30 18:41 | XRAY Report ---
Reason: ETT line placement check per Dr. Lord. Procedure Date: 12/30/2018 Accession Number: [id number] / [id number] Procedure: XR - Chest for Line Placement CPT Code: FULL RESULT: EXAM: CHEST RADIOGRAPHY EXAM DATE: 12/30/2018 06:06 PM. CLINICAL HISTORY: ETT line placement check per Dr. Lord. COMPARISON: CHEST 1 VIEW 12/28/2018 12:30 PM. TECHNIQUE: 1 view. FINDINGS: Lungs/Pleura: Mild pulmonary edema. No focal opacities evident. No pleural effusion. No pneumothorax. Mediastinum: Moderate cardiomegaly. Other: Endotracheal tube is seen with its tip approximately 2.1 cm from the level of kelley. Enteric tube is seen with its distal end coursing under the left hemidiaphragm, likely within stomach. IMPRESSION: Endotracheal tube is seen with its tip approximately 2.1 cm from the level of kelley; appears well positioned. (Slightly deviating to the right, however is well above the kelley). Moderate cardiomegaly with mild pulmonary edema. RADIA The call report notification system was initiated by Dr. Serenity Trammell at 06:36 PM on 12/30/2018. The above call report findings were discussed with Brittnee Lord by Dr. Serenity Trammell at 06:39 PM on 12/30/2018.
[2018-12-30] MEDS ORDERED: CLINDAMYCIN 900 MG/50 ML 50 ML IV SCH ×2 (19:00→20:00)
[2018-12-30 19:15] VITALS: BP 103/45
[2018-12-30] MEDS ORDERED: VANCOMYCIN 1 GM VIAL ONE (19:50)
[2018-12-30] MEDS ORDERED: fentaNYL 100 MCG/2 ML VIAL IVP PRN (19:58)
[2018-12-30] MEDS ORDERED: CHLORHEXIDINE GLUCONATE 15 ML UDC PO SCH (21:00)
--- NOTE | 2018-12-30 21:13 | DISCHARGE SUMMARY ---
Physician: Brittnee Lord MD DATE OF ADMISSION: 12/21/2018 DATE OF DISCHARGE: 12/30/2018 PRIMARY CARE PROVIDER: Ehsan Arnold MD. DISCHARGE DIAGNOSES 1. Necrotizing fasciitis. 2. Sepsis due to cellulitis. 3. Type 2 diabetes mellitus, uncontrolled, with hyperglycemia. 4. Diabetes ketoacidosis, type 2. 5. Heart failure with preserved ejection fraction at 40%. 6. Obstructive sleep apnea. 7. Chronic respiratory failure with hypercapnia. 8. Morbid obesity. 9. Iron deficiency anemia. 10. Depression with anxiety. 11. Hypertension. 12. Hypothyroidism. 13. Nonalcoholic fatty liver disease. DISCHARGE MEDICATIONS 1. Lipitor 40 q.p.m. 2. Clindamycin 1800 mg IVPB every 6 hours increased from 900 mg IVPB at request of Dr. Carmona 3. Lovenox 40 mg subcutaneously daily. 4. Fergon 324 mg daily. 5. NovoLog fixed high-dose insulin 28 units subcutaneous t.i.d. 6. Novolin-N 38 units subcutaneous b.i.d. 7. Novolin 1-9 units subcutaneous q.6 hours p.r.n. with sliding scale. 8. Xopenex via nebulizer q.i.d. p.r.n. 9. Synthroid 112 mcg with 75 mcg tablet daily. 10. Nystatin cream topically b.i.d. to intertriginous folds. 11. Protonix 40 mg IV daily. 12. Paxil 40 mg p.o. q.p.m. 13. Zosyn starting 12/29/2018 at 1725 hours, 4.5 grams every 6 hours. 14. Propofol drip was started tonight right before transfer since the patient is intubated. 15. Florastor 250 mg p.o. b.i.d. 16. Aldactone 25 mg daily. 17. Vancomycin 1 gram every 12 hours starting 12/25/2018 at 2200 hours. 18. Ancef started 12/20/2018 for 1 dose only. 19. Cefepime from 12/21/2018 through 12/29/2018 at 2 grams q.12 hours. PRINCIPAL PROCEDURES 1. Blood cultures on 12/20/2018 without any growth. 2. Abdominal wound culture 12/24/2018, no growth. 3. Abscess culture 12/26/2018 with aerobic Staphylococcus aureus MRSA and anaerobic with moderate gram-positive cocci in clusters, but no anaerobes isolated to date. 4. Blood cultures 12/29/2018, negative. 5. Wound culture 12/29/2018 with Staphylococcus aureus, sensitivities pending. 6. Chest x-rays showing hypoventilatory changes. At discharge, she had a followup chest x-ray done because of endotracheal tube in place. She has moderate cardiomegaly with mild pulmonary edema, and ET tube in place. 7. Abdominal ultrasound on 12/23/2018 showed subcutaneous tissue heterogeneous hypoechoic collection of fluid at 1.9 x 1.2 x 0.9 cm that is medial and superior to the level of the umbilicus. No right lower abdominal wall findings. It is possibly an early abscess. Followup ultrasound of the same cellulitis area on 12/28/2018 showed echogenic fat and edema compatible with cellulitis with a small 1.0 x 0.4 x 1.0 fluid collection deep in the wound. Drain was placed to drain that small amount of fluid since the patient was not responding. 8. Abdomen and pelvis CT on 12/30/2018. There is note that the radiologist spoke to the surgeon in person to describe cellulitis or skin changes superior to the iliac crest with cranial extent approximately in the region of the anterior costochondral margins of the ipsilateral thorax. The skin incision lies along the lower portion of the infectious process. In the soft tissues external to the abdominal wall is a 21.5 cm long large geographic area, which appears phlegmonous with surrounding fat stranding and no definite walled off fluid collection in keeping with known ongoing fasciitis. The superior extent of the collection cannot be measured due to the patient's body habitus and body contact with the entry. In terms of the depth of the involvement, no fluid collection is seen within the underlying abdominal wall. No gas in superficial or deep tissues. It is felt to be clinically non-fasciitis, status post initial operative intervention on the CT. 9. PICC line placement attempted, 12/24/2018. 10. Abdominal exploration, I and D, debridement of soft tissue infection, 12/29/2018. 11. Second exploration and debridement of abdominal wall, 12/30/2018. HOSPITAL COURSE This is an 83-year-old elderly, obese female who has type 2 diabetes mellitus that is on insulin, heart failure with preserved ejection fraction, and complains of a wound over her right abdominal wall area. She noticed erythema two days prior to admission, but on the day before admission it became larger. Her caregiver became concerned that it may be a spider bite, and the patient did report subjective fevers and generalized weakness. Blood sugars were also noted to be increasingly elevated over the last few days before admission, despite taking her insulin. She describes poor oral intake, nausea, increased urinary frequency. She denied urgency or dysuria. In the emergency room, she was found to have a low-grade fever with tachycardia, she had leukocytosis with bandemia. Blood glucose was greater than 400. She was given vancomycin and cefazolin. She is a DO NOT RESUSCITATE and wants limited interventions. She is described as having severe sleep apnea, but she denies using a CPAP. She is oxygen dependent at 2-3 liters. Has her congestive heart failure, hypertension, and high blood pressure. She lives with caregivers and does not have a designated power of erisa attorney yet. Initially, she was treated as sepsis due to cellulitis, and diabetic ketoacidosis. She was placed in the ICU with an insulin drip for the DKA and started on Ancef and vancomycin. She was able to come off insulin drip the next day because glucose had dropped to 166, and she was changed to Lantus short- acting insulin with each meal and high sliding scale coverage. Cellulitis of the abdominal wall appeared to be shrinking over the first 48 hours. She was maintaining her oxygenation with 3 liters nasal cannula. By 12/23/2018, however, she was having increasing pain. By then, the cellulitis area had shrunk down to about 30% from what we could see from the markers that initially demarcated her cellulitis spread. Just moving and touching the area caused more pain. There is no fever spikes. White cell count had minimally moved from 17,000 down to 16,000. She was continued on vancomycin, cefepime had already been added for broader coverage in a diabetic from the day of admission. Ultrasound was done to try and delineate the area, wondering if she had an abscess because she had increased pain. It was really such a small fluid collection that General Surgery was unimpressed on 12/24/2018. She then had an I and D of the fluid collection identified on ultrasound because she was not improving. It had been seven days on antibiotics. Exam was difficult because of her morbid obesity. All this time all of her medical problems with regard to her diabetes, heart failure with preserved ejection fraction, hypothyroidism, and hypertension were being addressed. She also has depression with anxiety. She was identified as having iron deficiency anemia and started on iron. Liver enzymes are elevated. An ultrasound of the liver shows her to have nonalcoholic fatty liver disease. By 12/29/2018, the patient had not substantially responded to broad spectrum antibiotics in a diabetic. She had not responded to the I and D. Surgeon felt that her anterior abdominal wall area of infection was becoming more circumspect, localized and questionably becoming necrotic. Because she had marked leukocytosis not improving, and the possibility of un-drained pus, she was taken to the OR for exploration and I and D on 12/29/2018. It was described as possible necrotizing fasciitis by its look. General Surgery, Dr. Garrett Tinajero, repeated the CT on the day of discharge, and the above CT findings were noted in the procedure list. He is worried that necrotizing fasciitis is continuing to spread in spite of his surgical interventions. He took the patient back to the OR and he asked me to please make arrangements for transfer to [facility]. The patient was accepted in transfer by Dr. Bauman. Dr. Tinajero, our surgeon, was able to speak to Dr. Bauman on the phone and discuss, in person, the surgical findings. The patient at this time was out of the operating room after her second look-see procedure, and Dr. Bauman requested the patient stay intubated. Blood gases were reviewed with a pH of 7.31, pCO2 of 60, pO2 of 50. At that time, she is on SIMV with a rate of 20, 40% FiO2, tidal volume 450, PEEP of 5 and pressure support 12. I have increased her ventilatory rate to 22 and increased her FiO2. At discharge, she is a morbidly obese female at 158 kg, 5 feet 8 inches tall. She is on a propofol drip, intubated, temperature 36.5, pulse 90, blood pressure 130/61, respirations 25, and 97% saturated. She responds to vigorous sternal rub with the propofol, but is otherwise not moving, not requiring restraints. She has a thick neck and is very difficult to assess for JVD or goiter. Lungs have coarse upper airway sounds and tubular breath sounds from the ET tube. There are no crackles, rhonchi, or wheezing. PMI is normally placed with a regular rate and rhythm. The abdomen is super obese, and she has Genesis being treated in the intertriginous folds with nystatin cream. The right mid abdominal area extending to the mid axillary line going up and down to the ribs and down to the superior iliac crest is covered with bandage. Creeping edge redness outside the bandage. Hot and warm. Hypoactive bowel sounds. Legs are large and tree trunk, with 1+ edema around her ankles, calves and shins. Nursing notes that her last bowel movement was 12/27/2018. She has a Delaney in place. That was placed today. She has generalized withdrawal to pain. She has some ecchymosis on her forearms and legs. Mostly associated with blood draws or bruising along the bed. Skin is warm, pale, dry. Greater than 30 minutes was spent in coordinating discharge for this unfortunate patient. cc: Ehsan Arnold MD TD: 12/30/2018 20:03 MTDD
[2018-12-31] MEDS ORDERED: PANTOPRAZOLE 40 MG VIAL IVP SCH (07:00)
== END 2018-12-30 20:14 | disposition short-term general hospital (02) | DRG 853 ==
LOC: EDUNIT# → EDBD → ED 21:50 → ICU 12-21 01:41 → MS2 12-27 14:24 → ICU 12-29 16:24
PROVIDERS: ADMIT Internal Medicine; ATTEND Specialist
PROC: 02HV33Z Insertion of Infusion Device into Superior Vena Cava, Percutaneous Approach (ICD-10-PCS; 2018-12-24)
PROC: 0H97XZZ Drainage of Abdomen Skin, External Approach (ICD-10-PCS; 2018-12-26)
PROC: 0JB80ZZ Excision of Abdomen Subcutaneous Tissue and Fascia, Open Approach (ICD-10-PCS; principal; 2018-12-29 14:30)
PROC: 0JB80ZZ Excision of Abdomen Subcutaneous Tissue and Fascia, Open Approach (ICD-10-PCS; 2018-12-30)
PROC: 5A1935Z Respiratory Ventilation, Less than 24 Consecutive Hours (ICD-10-PCS; 2018-12-30)
DX: A41.02 Sepsis due to Methicillin resistant Staphylococcus aureus (principal); E11.65 Type 2 diabetes mellitus with hyperglycemia; E87.1 Hypo-osmolality and hyponatremia; R51 Headache; M25.562 Pain in left knee; G89.29 Other chronic pain; M72.6 Necrotizing fasciitis; I50.9 Heart failure, unspecified; E11.10 Type 2 diabetes mellitus with ketoacidosis without coma; L03.311 Cellulitis of abdominal wall; J96.12 Chronic respiratory failure with hypercapnia; Z68.43 Body mass index [BMI] 50.0-59.9, adult; J96.11 Chronic respiratory failure with hypoxia; Z79.82 Long term (current) use of aspirin; I50.32 Chronic diastolic (congestive) heart failure; L02.231 Carbuncle of abdominal wall; Z87.440 Personal history of urinary (tract) infections; I11.0 Hypertensive heart disease with heart failure; E66.9 Obesity, unspecified; Z68.42 Body mass index [BMI] 45.0-49.9, adult; G47.33 Obstructive sleep apnea (adult) (pediatric); E66.01 Morbid (severe) obesity due to excess calories; D50.9 Iron deficiency anemia, unspecified; F41.8 Other specified anxiety disorders; E03.9 Hypothyroidism, unspecified; K76.0 Fatty (change of) liver, not elsewhere classified; B37.2 Candidiasis of skin and nail; I25.10 Atherosclerotic heart disease of native coronary artery without angina pectoris; J44.9 Chronic obstructive pulmonary disease, unspecified; I25.2 Old myocardial infarction; Z66 Do not resuscitate; Z79.4 Long term (current) use of insulin; Z99.81 Dependence on supplemental oxygen; Z79.899 Other long term (current) drug therapy; Z87.891 Personal history of nicotine dependence; Z98.2 Presence of cerebrospinal fluid drainage device
CPT/HCPCS: 36415; 36600; 51702; 71045; 74177; 76705; 80048; 80053; 80076; 80202; 81001; 81003; 82009; 82607; 82746; 82803; 82947; 83036; 83540; 83605; 83690; 83735; 84100; 84466; 84484; 85025; 87040; 87070; 87150; 87181; 87205; 93005; 94002; 94770; 96365; 96366; 96368; 97110; 97116; 97161; 97165; 97530; 99285; A9270; C1751; J0330; J1650; J1815; J3010; J3370; J7120; Q9967; 87086

== ENCOUNTER 2019-02-25 14:00 | Outpatient (CLI) | payer MEDICARE, MEDICAID | END 2019-02-25 23:59 | LOC: LAB.R 14:00 | PROVIDERS: ATTEND Internal Medicine | DX: R21 Rash and other nonspecific skin eruption (principal) | CPT/HCPCS: 87070; 87181; 87205 ==

== ENCOUNTER 2019-03-15 21:37 | Outpatient (CLI) | payer MEDICARE, MEDICAID | END 2019-03-15 21:38 | disposition EMS.NT | LOC: EMS 21:37 | PROVIDERS: ATTEND Surgery | DX: Z03.89 Encounter for observation for other suspected diseases and conditions ruled out (principal) ==

== ENCOUNTER 2019-03-31 14:29 | Outpatient (CLI) | payer MEDICARE, MEDICAID | END 2019-03-31 14:30 | disposition critical access hospital (66) | LOC: EMS 14:29 | PROVIDERS: ATTEND Surgery | DX: R21 Rash and other nonspecific skin eruption (principal); R53.1 Weakness; R73.09 Other abnormal glucose | CPT/HCPCS: A0425; A0429 ==

== ENCOUNTER 2019-03-31 15:05 | Inpatient (IN) | payer MEDICARE, MEDICAID ==
[2019-03-31] MEDS ORDERED: VANCOMYCIN INJ 2 GM in SODIUM CHLORIDE 0.9% 500 ML IV STA (15:50)
--- NOTE | 2019-03-31 15:52 | ED Physician Documentation ---
History of Present Illness - Stated complaint Stated Complaint: RASH - Chief complaint Chief Complaint: General - History obtained from History obtained from: Patient (This is an 83-year-old woman who presents by ambulance from home for abdominal wall rash. 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 She was sent to [facility]. She is been at home now and has a wound VAC in place. Over the last day or so she has had a spreading nonpainful rash over the lower abdomen which she had not noticed because she cannot see it. She denies fevers or chills but feels a little out of it.) Review of Systems Ten Systems: 10 systems reviewed and negative Constitutional: denies: Fever, Chills Cardiac: denies: Chest pain / pressure, Palpitations Respiratory: denies: Dyspnea, Cough GI: denies: Abdominal Pain, Nausea, Vomiting PD PAST MEDICAL HISTORY - Past Medical History Cardiovascular: Congestive heart failure, Hypertension, High cholesterol, Coronary artery disease, PA Respiratory: COPD, Shortness of breath, Sleep apnea (patient denies using CPAP or knowing she has OWEN diagnosis. Patient unable to stay awake during preop interview. 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) Neuro: None Endocrine/Autoimmune: Type 2 diabetes, HyPOthyroidism GI: None, Other (super morbidly obese) OIL AND GAS PRINCIPAL: Other : Frequency HEENT: Chronic sinusitis, Chronic hearing loss Psych: Anxiety Musculoskeletal: Fatigue Derm: Other drug resistant infections - Past Surgical History Past Surgical History: Yes /OIL AND GAS PRINCIPAL: Hysterectomy HEENT: Cataracts, Tonsil/Adenoidectomy - Present Medications Home Medications: Ambulatory Orders Medication Instructions Recorded Confirmed Lovastatin [Altoprev] 40 mg ORAL QPM 06/23/14 12/20/18 Insulin Regular, Human [Novolin R] 28 units SUBQ TIDWM 06/22/15 12/20/18 PARoxetine [Paxil] 40 mg PO QPM 06/22/15 12/20/18 Carvedilol 3.125 mg PO DAILY 01/29/16 12/20/18 Levothyroxine [Synthroid] 75 mcg PO QDAC #30 tablet 12/28/17 12/20/18 Levothyroxine [Synthroid] 112 mcg PO QDAC #30 tablet 12/28/17 12/20/18 Lisinopril 5 mg PO DAILY #30 tablet 12/28/17 12/20/18 Spironolactone [Aldactone] 25 mg PO DAILY #30 tablet 12/28/17 12/20/18 Furosemide 40 mg PO DAILY 08/23/18 12/20/18 Levalbuterol [Xopenex] 3 ml INH QID PRN 11/18/18 12/21/18 Ascorbic Acid [Vitamin C] 500 mg PO DAILY 12/20/18 12/21/18 Aspirin [Aspirin EC] 81 mg PO DAILY 12/20/18 12/20/18 C,E,Zinc,Copper 11/Bufwc9m/Lut 1 each PO DAILY 12/20/18 12/20/18 [Ocuvite Adult 50 Plus Softgel] Calcium Carbonate [Calcium] 500 mg PO DAILY 12/20/18 12/20/18 Cholecalciferol (Vitamin D3) 1,000 unit PO DAILY 12/20/18 12/20/18 [Vitamin D3] Garlic 1,000 mg PO DAILY 12/20/18 12/20/18 Insulin Detemir [Levemir Flextouch] 37 units SUBQ BID 12/20/18 12/20/18 Loratadine 10 mg PO DAILY 12/20/18 12/20/18 Multivitamin [Multivitamins] 1 each PO DAILY 12/20/18 12/20/18 - Allergies Allergies/Adverse Reactions: Allergies Allergy/AdvReac Type Severity Reaction Status Date / Time codeine Allergy Unknown Verified 03/31/19 15:16 - Social History Does the pt smoke?: No Smoking Status: Former smoker Does the pt drink ETOH?: No Does the pt have substance abuse?: No - Family History Family history: reports: Non contributory - Immunizations Immunizations are current?: Yes - POLST Patient has POLST: Yes POLST Status: DNR PD ED PE NORMAL - Vitals Vital signs reviewed: Yes - General General: Alert and oriented X 3, Other (Morbidly obese but pleasant woman appears younger than stated age laying in bed in no distress) - HEENT HEENT: PERRL, EOMI - Neck Neck: Supple, no meningeal sign, No bony TTP - Cardiac Cardiac: RRR, No murmur - Respiratory Respiratory: No respiratory distress, Clear bilaterally - Abdomen Abdomen: Other (There is a wound VAC on the right side of the abdomen, she has significant cellulitis on both sides of the lower abdomen spreading to the right flank. There is no crepitus. No pain out of proportion to exam.) - Back Back: No CVA TTP, No spinal TTP - Derm Derm: Normal color, Warm and dry - Neuro Neuro: Alert and oriented X 3, Normal speech Results - Vitals Vitals: Vital Signs - 24 hr 03/31/19 03/31/19 03/31/19 15:12 15:40 16:25 Temperature 36.7 C Heart Rate 72 72 73 Respiratory 22 3 L 18 Rate Blood Pressure 104/90 H 140/97 H 138/108 H O2 Saturation 97 96 98 Oxygen O2 Source [Without Activity] Nasal cannula O2 Source Nasal cannula Oxygen Flow Rate 3 - Labs Labs: Laboratory Tests 03/31/19 03/31/19 03/31/19 16:03 16:03 16:03 WBC 23.6 H RBC 3.89 L Hgb 11.5 L Hct 36.6 L MCV 94.1 MCH 29.6 MCHC 31.4 L RDW 12.8 Plt Count 330 MPV 9.0 Neut # (Auto) Not Reportable Lymph # (Auto) Not Reportable Sevier # (Auto) Not Reportable Eos # (Auto) Not Reportable Baso # (Auto) Not Reportable Absolute Nucleated RBC Not Reportable Total Counted 100 Band Neuts % (Manual) 19 H Abnorm Lymph % (Manual) 0 Metamyelocytes % 1 H Nucleated RBC % Not Reportable Neutrophils # (Manual) 17.9 H Lymphocytes # (Manual) 3.1 Monocytes # (Manual) 1.7 H Eosinophils # (Manual) 0.7 Basophils # (Manual) 0.0 Differential Comment MANUAL DIFFERENTIAL Platelet Estimate NORMAL (130-450,000) Platelet Morphology RARE GIANT PLATELETS RBC Morph Micro Appear NORMAL APPEARANCE PT 12.5 INR 1.1 Sodium 130 L Potassium 4.9 Chloride 87 L Carbon Dioxide 32 Anion Gap 11.0 BUN 37 H Creatinine 1.4 H Estimated GFR (MDRD) 36 L Glucose 246 H Lactic Acid Calcium 9.7 Total Bilirubin 0.5 AST 34 ALT 44 Alkaline Phosphatase 291 H Total Protein 7.7 Albumin 3.3 Globulin 4.4 H Albumin/Globulin Ratio 0.8 L Lipase 39 Urine Color Urine Clarity Urine pH Ur Specific [place] Urine Protein Urine Glucose (UA) Urine Ketones Urine Occult Blood Urine Nitrite Urine Bilirubin Urine Urobilinogen Ur Leukocyte Esterase Urine RBC Urine WBC Ur Squamous Epith Cells Urine Bacteria Ur Microscopic Review Urine Culture Comments 03/31/19 03/31/19 16:08 16:25 WBC RBC Hgb Hct MCV MCH MCHC RDW Plt Count MPV Neut # (Auto) Lymph # (Auto) Sevier # (Auto) Eos # (Auto) Baso # (Auto) Absolute Nucleated RBC Total Counted Band Neuts % (Manual) Abnorm Lymph % (Manual) Metamyelocytes % Nucleated RBC % Neutrophils # (Manual) Lymphocytes # (Manual) Monocytes # (Manual) Eosinophils # (Manual) Basophils # (Manual) Differential Comment Platelet Estimate Platelet Morphology RBC Morph Micro Appear PT INR Sodium Potassium Chloride Carbon Dioxide Anion Gap BUN Creatinine Estimated GFR (MDRD) Glucose Lactic Acid 1.6 Calcium Total Bilirubin AST ALT Alkaline Phosphatase Total Protein Albumin Globulin Albumin/Globulin Ratio Lipase Urine Color YELLOW Urine Clarity HAZY Urine pH 7.5 Ur Specific [place] <=1.005 Urine Protein TRACE Urine Glucose (UA) NEGATIVE Urine Ketones NEGATIVE Urine Occult Blood NEGATIVE Urine Nitrite POSITIVE H Urine Bilirubin NEGATIVE Urine Urobilinogen 0.2 (NORMAL) Ur Leukocyte Esterase LARGE H Urine RBC 0-5 Urine WBC 6-10 H Ur Squamous Epith Cells NONE SEEN Urine Bacteria Many H Ur Microscopic Review INDICATED Urine Culture Comments INDICATED - Rads (name of study) Ct A/P Radiology: EMP read contemporaneously PD MEDICAL DECISION MAKING - ED course ED course: 83-year-old woman with history of necrotizing fasciitis of the abdominal wall presents with a new cellulitis of the abdominal wall excising. No pain. No crepitance. CT does not show evidence of gas formation. She also has a UTI with a significant white count. She was given cefepime and vancomycin after reviewing prior cultures and after blood cultures were obtained. Given her comorbidities, the white counts and infection she will be admitted for further evaluation treatment. Spoke with Dr. Aguillon for admission at 6:03 PM. 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
[2019-03-31] MEDS ORDERED: VANCOMYCIN 1 GM VIAL ONE (16:09)
[2019-03-31 16:20] LABS: BASOPHILS % (AUTO) 0.3 %; EOSINOPHILS % (AUTO) 1.2 %; HGB - HEMOGLOBIN 11.5 g/dL (12.0-16.0); LYMPHOCYTES % (AUTO) 10.3 %; MEAN CORPUSCULAR HEMOGLOBIN 29.6 pg (27.0-31.0); MEAN CORPUSCULAR HGB CONC 31.4 g/dL (32.0-36.0); MEAN CORPUSCULAR VOLUME 94.1 fL (81.0-99.0); MONOCYTES % (AUTO) 10.2 %; NEUTROPHILS % (AUTO) 74.2 %; PLT - PLATELET COUNT 330 10^3/uL (130-450); RED BLOOD COUNT 3.89 10^6/uL (4.20-5.40); RED CELL DISTRIBUTION WIDTH 12.8 % (12.0-15.0); WHITE BLOOD COUNT 23.6 x10^3/uL (4.8-10.8)
[2019-03-31 16:26] LABS: ABNORMAL LYMPHS % (MANUAL) 0 %; INR 1.1 (0.8-1.2); PT - PROTHROMBIN TIME 12.5 secs (9.9-12.6)
[2019-03-31 16:28] LABS: ALBUMIN 3.3 g/dL (3.2-5.5); ALBUMIN/GLOBULIN RATIO 0.8 (1.0-2.2); BILIRUBIN,TOTAL 0.5 mg/dL (0.2-1.0); CALCIUM 9.7 mg/dL (8.5-10.3); CREATININE 1.4 mg/dL (0.4-1.0); TOTAL PROTEIN 7.7 g/dL (6.7-8.2)
[2019-03-31 16:37] LABS: BILIRUBIN,URINE NEGATIVE (NEGATIVE); GLUCOSE, URINE (UA) NEGATIVE (NEGATIVE); KETONES,URINE (UA) NEGATIVE (NEGATIVE); LEUKOCYTE ESTERASE, URINE LARGE (NEGATIVE); NITRITE,URINE POSITIVE (NEGATIVE); OCCULT BLOOD,URINE NEGATIVE (NEGATIVE); PH,URINE 7.5 PH (5.0-7.5); PROTEIN,URINE TRACE mg/dL (NEGATIVE); UROBILINOGEN,URINE 0.2 (NORMAL) E.U./dL (NORMAL)
[2019-03-31 16:43] LABS: CLARITY,URINE HAZY (CLEAR)
[2019-03-31] MEDS ORDERED: IOVERSOL 320 100 ML VIAL IVP ONE ×2 (16:45→17:14)
[2019-03-31 16:47] LABS: BACTERIA,URINE Many /HPF (None Seen); RBC,URINE 0-5 /HPF (0-5); SQUAMOUS EPITHELIAL CELL,UR NONE SEEN (<= Few)
[2019-03-31] MEDS ORDERED: CEFEPIME 1 GM in SODIUM CHLORIDE 0.9% MINIBAG 100 ML IV STA (17:03)
[2019-03-31 17:04] LABS: BAND NEUTROPHILS % (MANUAL) 19 %; EOSINOPHILS # (MANUAL) 0.7 10^3/uL (0-0.7); LYMPHOCYTES # (MANUAL) 3.1 10^3/uL (1.5-3.5); LYMPHOCYTES % (MANUAL) 13 %; METAMYELOCYTES % (MANUAL) 1 %; MONOCYTES # (MANUAL) 1.7 10^3/uL (0.0-1.0); PLATELET ESTIMATE, MANUAL NORMAL (130-450,000) (NORMAL); PLATELET MORPHOLOGY RARE GIANT PLATELETS (NORMAL); RBC MORPHOLOGY (MULTIPLE) NORMAL APPEARANCE (NORMAL)
[2019-03-31 17:05] LABS: DIFFERENTIAL COMMENT MANUAL DIFFERENTIAL
--- NOTE | 2019-03-31 17:53 | CT Report ---
Reason: IV only, Abd wall cellulitis, H/O nec fasc Procedure Date: 03/31/2019 Accession Number: [id number] / [id number] Procedure: CT - Abdomen/Pelvis W CPT Code: FULL RESULT: EXAM: CT ABDOMEN AND PELVIS EXAM DATE: 03/31/2019 05:11 PM. CLINICAL HISTORY: IV only, Abd wall cellulitis, H/O nec fasc. COMPARISONS: ABDOMEN/PELVIS W/ 12/30/2018 12:17 PM. TECHNIQUE: Routine helical CT imaging was performed through the abdomen and pelvis. IV contrast: OPTI 320 100ML. Enteric contrast: No. Reconstructions: Coronal and sagittal. In accordance with CT protocol optimization, one or more of the following dose reduction techniques were utilized for this exam: automated exposure control, adjustment of mA and/or KV based on patient size, or use of iterative reconstructive technique. FINDINGS: Lung Bases: Unremarkable. Liver: Normal. No masses. Gallbladder/Bile Ducts: Unremarkable. Spleen: Normal. Pancreas: Normal. Adrenal Glands: Normal. Kidneys: Normal. No masses or hydronephrosis. Peritoneal Cavity/Bowel: No dilated bowel. No features of mechanical bowel obstruction. No free fluid or free air. No abscess. The appendix is well visualized and normal. Pelvic Organs: Urinary bladder is unremarkable. Uterus not visualized. Vasculature: There is dense atherosclerotic vascular calcification without aneurysm. Bones: No significant abnormality. Other: There is an open wound in the subcutaneous tissue of the right lower quadrant of the abdomen. There appears to be increased granulation tissue at the inferior aspect of the wound. There is no separate organized drainable abscess. No new soft tissue gas present. IMPRESSION: 1. No new soft tissue gas collection. No organized drainable abscess. 2. Right lower quadrant subcutaneous open wound with probable developing granulation tissue at the base of the open wound. 3. No new intraperitoneal fluid collection RADIA
[2019-03-31] MEDS ORDERED: SODIUM CHLORIDE FLUSH 0.9% 10 ML SYRINGE IVP PRN (18:07)
[2019-03-31] MEDS ORDERED: ACETAMINOPHEN 325 MG TABLET PO PRN (18:07)
[2019-03-31] MEDS ORDERED: MORPHINE 2 MG/ML CARPUJECT IVP PRN (18:07)
[2019-03-31] MEDS: LACTATED RINGERS 1,000 ML IV SCH (20:33)
[2019-03-31] MEDS: HEPARIN 5,000 UNIT/ML VIAL SUBQ SCH (20:46)
--- NOTE | 2019-03-31 21:18 | HISTORY & PHYSICAL EXAMINATION ---
Chief Complaint - Chief Complaint Chief Complaint: spreading redness on abd wall w hx nec fasc History of Present Illness - Admitted From Admitted From:: Home/ER - History Obtained From Records Reviewed: [facility] History obtained from: Patient and ER MD notes Exam Limitations: none - History of Present Illness HPI Comment/Other: She is a morbidly obese female who lives in her own home. She has 2 friends that live with her and help take care of her. She was last admitted to our hospital December 21. She noticed a redness over her right lower abdomen for 2 days. It has been getting worse. She then started having fevers, weakness. Glucose started going up. In the emergency room she had an elevated white cell count, a glucose greater than 400. And a large geographical cellulitis of her right lower abdominal wall. She initially responded to empiric antibiotics with vancomycin and cefazolin. Then 2 days later she started having an increasing stinging and aching. CT scan was done. General surgery was consulted. IV antibiotics were continued and she was watched. Unfortunately the pain continued, and her white cell count started rebounding back up. She was taken to the OR and diagnosis having early necrotizing fasciitis. And she was transferred to [facility] December 30. The patient states she was there for 11 days. Had 4 surgeries. She has a wound VAC in. She is followed by [facility]. Unfortunately today's wound VAC was improperly placed. This section is not working because the sponge was not properly prepared. In addition it is noted that the patient has abdominal wall redness, heat that is spreading from the wound into the right mid axillary line and right flank. She also has an area of left lower quadrant redness, blanching rash, and heat. Patient states is not very painful. She was brought into the emergency room and evaluated by Dr. Samuel. Lactic acid is 1.6. Her white cell count is 23.6 thousand with 19% bands. She does not have a fever. She was initially with a blood pressure of 104/90. On examination she has a spreading cellulitis of both lower anterior abdominal cheng. The right appears worse and that it is spreading into the right mid axillary line and right flank. Because the wound VAC is not working, [facility] has requested that we take off the wound VAC and start wet-to-dry dressing changes every 4 hours. They will come in tomorrow to replace the wound VAC correctly. History - Past Medical History Cardiovascular: reports: Congestive heart failure (August 2018 ECHO: Moderately dilated left ventricle with mild left ventricular hypertrophy. Mild global hypokinesis. Ejection fraction 45%. Left atrium mildly dilated. Moderate pulmonary hypertension with PASP 59 mmHg.), Hypertension, High cholesterol, Coronary artery disease, [place] Respiratory: reports: COPD, Shortness of breath, Sleep apnea (patient denies using CPAP or knowing she has OWEN diagnosis. Patient unable to stay awake during preop interview. 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 Hospitalized here then transferred to [facility].) MRSA Hx?: Yes Other Past Medical History: super morbid obesity - Past Surgical History /RIDING DOUBLE: reports: Hysterectomy HEENT: reports: Cataracts, Tonsil/Adenoidectomy Derm: reports: Debridement (For them at [facility] December 2018) - Family & Social History Family History: Mother: , Alzheimer's Disease, Diabetes, Type 2, Father: , Sister: , Other family: Family History Comment/Other: The patient's father at age 40 of pulmonary embolism. mother at age 84 of complications of Alzheimer's disease. Sister had cerebral aneurysm and . 6 children: 1 of cancer, 1 of drug OD, 1 of complications of Down's Syndrome age 59. 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 . Currently lives with her caregivers. Quit smoking back in the 90's. Approximately 45 pack year smoking history. No history of alcohol abuse. Of her 3 surviving [place] 1 lives in an LTAC bc of obesity and chronic trach. She does not have a POA but plans on establishing one this next week. - Substance History Use: Uses substance without health or social issues: NONE Abuse: Recurrent use of substance despite neg consequences: NONE Dependence: Experiences withdrawal or developed tolerances: NONE - POLST Patient has POLST: Yes POLST Status: DNR Meds/Allgy - Home Medications Home Medications: Ambulatory Orders Medication Instructions Recorded Confirmed Lovastatin [Altoprev] 40 mg ORAL QPM 06/23/14 12/20/18 Insulin Regular, Human [Novolin R] 28 units SUBQ TIDWM 06/22/15 12/20/18 PARoxetine [Paxil] 40 mg PO QPM 06/22/15 12/20/18 Carvedilol 3.125 mg PO DAILY 01/29/16 12/20/18 Levothyroxine [Synthroid] 75 mcg PO QDAC #30 tablet 12/28/17 12/20/18 Levothyroxine [Synthroid] 112 mcg PO QDAC #30 tablet 12/28/17 12/20/18 Lisinopril 5 mg PO DAILY #30 tablet 12/28/17 12/20/18 Spironolactone [Aldactone] 25 mg PO DAILY #30 tablet 12/28/17 12/20/18 Furosemide 40 mg PO DAILY 08/23/18 12/20/18 Levalbuterol [Xopenex] 3 ml INH QID PRN 11/18/18 12/21/18 Ascorbic Acid [Vitamin C] 500 mg PO DAILY 12/20/18 12/21/18 Aspirin [Aspirin EC] 81 mg PO DAILY 12/20/18 12/20/18 C,E,Zinc,Copper 11/Kbnez8r/Lut 1 each PO DAILY 12/20/18 12/20/18 [Ocuvite Adult 50 Plus Softgel] Calcium Carbonate [Calcium] 500 mg PO DAILY 12/20/18 12/20/18 Cholecalciferol (Vitamin D3) 1,000 unit PO DAILY 12/20/18 12/20/18 [Vitamin D3] Garlic 1,000 mg PO DAILY 12/20/18 12/20/18 Insulin Detemir [Levemir Flextouch] 37 units SUBQ BID 12/20/18 12/20/18 Loratadine 10 mg PO DAILY 12/20/18 12/20/18 Multivitamin [Multivitamins] 1 each PO DAILY 12/20/18 12/20/18 - Allergies Allergies/Adverse Reactions: Allergies Allergy/AdvReac Type Severity Reaction Status Date / Time codeine Allergy Unknown Verified 03/31/19 15:16 Review of Systems - Constitutional Constitutional: reports: Malaise, Weakness, Other (she was walking and taking care of self ADL's but needed help with bathing since she can't get her wound wet. Started getting weak adn fell twice between yesterday and today) - Eyes Eyes: denies: Pain, Irritation, Amaurosis, Blurred vision - Ears, Nose & Throat Ears, Nose & Throat: reports: Hearing loss. denies: Hearing aids, Tinnitus, Vertigo, Nasal obstruction, Nasal congestion, Sore throat - Cardiovascular Cariovascular: reports: Irregular heart rate (chronic), Exertional dyspnea (chronic). denies: Decr. exercise tolerance - Respiratory Respiratory: reports: Apnea (but doesn't use CPAP or had formal eval yet). denies: Cough, Sputum production, Wheezing, Snoring - Gastrointestinal Gastrointestinal: denies: Abdominal pain, Abdominal distention, Constipation, Change in bowel habits, Nausea, Vomiting - Genitourinary Genitourinary: reports: Incontinence. denies: Dysuria, Frequency, Urgency, Hematuria, Flank pain, Nocturia - Musculoskeletal Musculoskeletal: reports: Back pain, Joint pain. denies: Muscle pain, Muscle aches - Integumentary Integumentary: reports: Rash, Pruritis. denies: Lesions, Dryness - Neurological Neurological: reports: General weakness. denies: Focal weakness, Headache, Dizziness, Incoordination, Slurred speech Prior Level of Functionality: she walks without DME in her own home. Needs help with bathing bc can't get wound wet. but able to feed self, ambulate in house, and transfer from laying to sitting to standing with only SBA. Exam - Vital Signs Reviewed Vital Signs: Yes Vital Signs: Vital Signs x48h Temp Pulse Pulse Resp BP BP Pulse Ox 03/31/19 20:13 37.1 C 75 20 96 03/31/19 19:31 37.1 C 74 22 132/51 H 94 03/31/19 18:13 77 16 132/120 H 3 L 03/31/19 16:25 73 18 138/108 H 98 03/31/19 15:40 72 3 L 140/97 H 96 03/31/19 15:12 36.7 C 72 22 104/90 H 97 - Physical Exam General Appearance: positive: No acute distress, Alert, Other (morbidly obese eldelry female who looks younger than stated age, who appears tired, speech slow but intact.) Eyes Bilateral: positive: PERRL, EOMI ENT: positive: Pharynx nml Neck: positive: No JVD. negative: Stiff neck, Carotid bruit Respiratory: positive: Chest non-tender, No respiratory distress, Other (breath sounds diminished at bases. Speaks without increased resp effort). negative: Wheezes, Rales, Rhonchi Cardiovascular: positive: Regular rate & rhythm. negative: Systolic murmur, Gallop/S4 Peripheral Pulses: positive: 1+ Abdomen: positive: Non-tender, Nml bowel sounds, No distention, Other (huge panus with RLQ wound vac in place but not working.). negative: Guarding, Rebound Skin: positive: Warm, Dry, Other (dense, blanching, hot indurated abd wall in LLQ red , blanching, nonconflutent, patchy , hot skin of RLQ ?candidia under panus of abd and intertriginous folds.) Extremities: positive: Non-tender, Full ROM, Pedal edema Neurologic/Psychiatric: positive: Oriented x3, CN's nml (2-12), Motor nml (but with generalized weakness, she can't get up on her own and she usually can). negative: Facial droop, Slurred/abnml speech Conclusion/Plan - Problem List (1) Abdominal wall cellulitis Conclusion/Plan: This is an elderly female who has diabetes. Is at increased risk for infection complications. I would left has already had one episode of necrotizing fasciitis this year. She now returns with recurrent cellulitis, in the face of a wound VAC. The redness, blanching, heat, is a large geographic distribution in the right lower quadrant going up into the right mid axillary line and right flank. She also has an area that is quite large in the left lower quadrant going to the left mid axillary line. Blood cultures hve been done. In December MRSA grew out of the wound. A 02/25/19 wound culture grew out MRSA and Group C beta hemolytic strep. Plan: Empiric antibiotic therapy with cefepime and vancomycin. Currently Zosyn is contraindicated in use with vancomycin according to pharmacy. Adjust abx on the basis of the cultures. Get her records from [facility] (2) Diabetes mellitus with hyperglycemia Conclusion/Plan: resume her home meds of long acting insuling and short acting insuline (before meals) but she takes 28 units before meals. Her glucose is curretnly 245. I will only use 10 units before meals and lantus at pm with SS on top of fixed premeal dose. check A1c Qualifiers: Diabetes mellitus type: type 2 Diabetes mellitus emergency department director insulin use: with emergency department director use Qualified Code(s): E11.65 - Type 2 diabetes mellitus with hyperglycemia; Z79.4 - senior living (current) use of insulin (3) Chronic systolic CHF (congestive heart failure), NYHA class 2 Conclusion/Plan: resume lasix, carvedilol. Avoid fluid overload. Low salt diet. (4) HTN (hypertension) Conclusion/Plan: diastoic is elevated t 102 at times but I suspect it may be dynamap technique. Patricio ask for once a day BP check with manual. REsume her home meds. Qualifiers: Hypertension type: essential hypertension Qualified Code(s): I10 - [place] al (primary) hypertension (5) Wound of abdomen Conclusion/Plan: right lower quadrant has a wound vac. Will remove and order the q4h wet to dry dressing changes requested by homehealth wound RN. They are to come here tomorrow and replace wound vac correctly. (6) Acute renal failure superimposed on chronic kidney disease Conclusion/Plan: her baseline creatinine can get as low as 0.7. With sepsis admission in December she peaked at 1.6. today she is 1.4 w a GFR of 36. Follow daily. No lasix for tonight and consider resuming in am once she has had enough fluid resuscitation. avoid nephrotoxic drugs Qualifiers: Chronic kidney disease stage: stage 2 (mild) (7) Depression with anxiety Conclusion/Plan: resume her paxil tomorrow (8) Hypothyroidism Conclusion/Plan: resumed her synthroid tomorrow Qualifiers: Hypothyroidism type: acquired Qualified Code(s): E03.9 - Hypothyroidism, unspecified (9) OWEN (obstructive sleep apnea) Conclusion/Plan: she has not had a formal eval. Will continue her home O2 consider overnight oximetry if symptomatic - Lab Results Lab results reviewed: Yes Fish Bones: 03/31/19 16:03 03/31/19 16:03 - Diagnostic Imaging Results Diagnostic Imaging Results: positive: Final report reviewed Diagnostic Imaging Results Comments: CT ABDOMEN AND PELVIS EXAM DATE: 03/31/2019 05:11 PM. CLINICAL HISTORY: IV only, Abd wall cellulitis, H/O nec fasc. COMPARISONS: ABDOMEN/PELVIS W/ 12/30/2018 12:17 PM. TECHNIQUE: Routine helical CT imaging was performed through the abdomen and pelvis. IV contrast: OPTI 320 100ML. Enteric contrast: No. Reconstructions: Coronal and sagittal. In accordance with CT protocol optimization, one or more of the following dose reduction techniques were utilized for this exam: automated exposure control, adjustment of mA and/or KV based on patient size, or use of iterative reconstructive technique. FINDINGS: Lung Bases: Unremarkable. Liver: Normal. No masses. Gallbladder/Bile Ducts: Unremarkable. Spleen: Normal. Pancreas: Normal. Adrenal Glands: Normal. Kidneys: Normal. No masses or hydronephrosis. Peritoneal Cavity/Bowel: No dilated bowel. No features of mechanical bowel obstruction. No free fluid or free air. No abscess. The appendix is well visualized and normal. Pelvic Organs: Urinary bladder is unremarkable. Uterus not visualized. Vasculature: There is dense atherosclerotic vascular calcification without aneurysm. Bones: No significant abnormality. Other: There is an open wound in the subcutaneous tissue of the right lower quadrant of the abdomen. There appears to be increased granulation tissue at the inferior aspect of the wound. There is no separate organized drainable abscess. No new soft tissue gas present. IMPRESSION: 1. No new soft tissue gas collection. No organized drainable abscess. 2. Right lower quadrant subcutaneous open wound with probable developing granulation tissue at the base of the open wound. 3. No new intraperitoneal fluid collection Core Measures - Anticipated LOS I expect patient to be DC'd or transferred within 96 hours.: Yes - DVT/VTE - Prophylaxis VTE/DVT Device ordered at admit?: Yes
[2019-04-01 00:25] LABS: HB2 TOTAL 12.1 g/dL; HEMOGLOBIN A1C 1.06 g/dL; HEMOGLOBIN A1C % 10.2 % (4.6-6.2)
[2019-04-01] MEDS: SODIUM CHLORIDE FLUSH 0.9% 10 ML SYRINGE IVP SCH ×4 (00:55→23:26)
[2019-04-01 05:14] LABS: BASOPHILS % (AUTO) 0.8 %; EOSINOPHILS % (AUTO) 2.7 %; HGB - HEMOGLOBIN 10.7 g/dL (12.0-16.0); LYMPHOCYTES % (AUTO) 13.3 %; MEAN CORPUSCULAR HEMOGLOBIN 29.6 pg (27.0-31.0); MEAN CORPUSCULAR HGB CONC 31.9 g/dL (32.0-36.0); MEAN CORPUSCULAR VOLUME 92.8 fL (81.0-99.0); MEAN PLATELET VOLUME 8.9 fL (7.9-10.8); MONOCYTES % (AUTO) 10.1 %; NEUTROPHILS % (AUTO) 67.5 %; PLT - PLATELET COUNT 293 10^3/uL (130-450); RED BLOOD COUNT 3.61 10^6/uL (4.20-5.40); RED CELL DISTRIBUTION WIDTH 12.8 % (12.0-15.0)
[2019-04-01 05:26] LABS: ABNORMAL LYMPHS % (MANUAL) 0 %
[2019-04-01 05:27] LABS: CALCIUM 9.1 mg/dL (8.5-10.3); CREATININE 1.5 mg/dL (0.4-1.0); PHOSPHORUS 2.8 mg/dL (2.5-4.6)
[2019-04-01 05:42] LABS: BAND NEUTROPHILS % (MANUAL) 4 %; LYMPHOCYTES # (MANUAL) 3.4 10^3/uL (1.5-3.5); LYMPHOCYTES % (MANUAL) 14 %; MONOCYTES # (MANUAL) 1.7 10^3/uL (0.0-1.0)
[2019-04-01 05:43] LABS: DIFFERENTIAL COMMENT MANUAL DIFFERENTIAL; PLATELET ESTIMATE, MANUAL NORMAL (130-450,000) (NORMAL); PLATELET MORPHOLOGY NORMAL APPEARANCE (NORMAL); RBC MORPHOLOGY (MULTIPLE) NORMAL APPEARANCE (NORMAL)
[2019-04-01] MEDS: LEVOTHYROXINE 75 MCG TABLET PO SCH (06:49)
[2019-04-01] MEDS: LEVOTHYROXINE 112 MCG TABLET PO SCH (06:55)
[2019-04-01] MEDS ORDERED: INSULIN ASPART 300 UNIT/3 ML PEN SUBQ SCH (08:00)
[2019-04-01] MEDS: HEPARIN 5,000 UNIT/ML VIAL SUBQ SCH ×2 (08:42→21:43)
[2019-04-01] MEDS: LACTATED RINGERS 1,000 ML IV SCH (08:43)
[2019-04-01] MEDS: PARoxetine 10 MG TABLET PO SCH (08:44)
[2019-04-01] MEDS: LISINOPRIL 5 MG TABLET PO SCH (08:44)
[2019-04-01] MEDS: carvediloL 3.125 MG TABLET PO SCH ×2 (08:44→22:00)
[2019-04-01] MEDS: INSULIN GLARGINE 300 UNIT/3 ML PEN SUBQ SCH ×2 (08:45→22:00)
[2019-04-01] MEDS: INSULIN ASPART 300 UNIT/3 ML PEN SUBQ SCH ×7 (08:46→21:59)
[2019-04-01] MEDS ORDERED: VANCOMYCIN PER PHARMACY 10 GM in SODIUM CHLORIDE 0.9% 250 ML IV SCH (09:00)
[2019-04-01] MEDS: CEFEPIME 2 GM in SODIUM CHLORIDE 0.9% MINIBAG 100 ML IV SCH ×2 (09:16→21:20)
[2019-04-01] MEDS: MULTIVITAMIN W/MINERALS TABLET PO SCH (16:28)
[2019-04-01] MEDS: LACTOBACILLUS RHAMNOSUS GG CAPSULE PO SCH (16:28)
[2019-04-01] MEDS: VANCOMYCIN INJ 1.75 GM in SODIUM CHLORIDE 0.9% 500 ML IV SCH (16:29)
--- NOTE | 2019-04-01 16:33 | PROVIDER PROGRESS NOTE ---
Assessment/Plan - Problem List (1) Abdominal wall cellulitis Assessment/Plan: Blood cultures are negative to date. Continue with empiric antibiotics as ordered at admissionL Cefepime nd Vanco; unless WBC not responding, then will need to change. Will review records from her last hospitalization at ; she may need an ID consult or a transfer. Will add antifungal, Diflucan. MAC Wound consult requested, since wound vac not functioning. (2) Malfunction of vacuum-assisted closure (VAC) device Qualifiers: Encounter type: subsequent encounter Qualified Code(s): T85.698D - Other mechanical complication of other specified internal prosthetic devices, implants and grafts, subsequent encounter Assessment/Plan: Will request a MAC Wound consult (3) Urinary tract infection due to Proteus Assessment/Plan: Urine Cx turned (+) but sens pending. Continue empiric iv Cefepime (4) Hyponatremia Assessment/Plan: Possibly related to iv fluids (got LR) and diet intake. Since she has a Hx of systolic heart failure, so no saline planned, but will restrict free water. Follow BMP daily. (5) Acute renal failure superimposed on chronic kidney disease Qualifiers: Chronic kidney disease stage: stage 2 (mild) Assessment/Plan: Gentle diuresis and watch I's and O's, daily BMP. (6) Diabetes mellitus with hyperglycemia Qualifiers: Diabetes mellitus type: type 2 Diabetes mellitus skilled nursing insulin use: with adjunct faculty for medical terminology use Qualified Code(s): E11.65 - Type 2 diabetes mellitus with hyperglycemia; Z79.4 - adjunct faculty for medical terminology (current) use of insulin Assessment/Plan: Her admission A1c was 10.2, indicating poor control (poss from infection). Continue cc diet, ss Insulin and Lantus dose (7) Chronic systolic CHF (congestive heart failure), NYHA class 2 Assessment/Plan: Last EF by Echo was 40%, done in 08/27, which had decreased from 55% in 2018. No exacerbation currently. Continue her usual cardiac meds. (8) Ventricular bigeminy Assessment/Plan: She went into ventr bigeminy in the afternoon. [place] K and Mg were normal. Will check a troponin and obtain an EKG, since there is a Hx of CAD. (9) Anemia Assessment/Plan: This very likely is anemia of chronic disease (from CKD). We will check B12, folate, iron stores and replace if low (10) Hypothyroidism Assessment/Plan: She was ordered to stay on her home dose of thyroid replacement medicine (11) HTN (hypertension) Qualifiers: Hypertension type: essential hypertension Qualified Code(s): I10 - Essential (primary) hypertension Assessment/Plan: Controlled on present meds. (12) Morbid obesity with BMI of 45.0-49.9, adult Assessment/Plan: At the last admission her BMI was >50. (13) OWEN (obstructive sleep apnea) Assessment/Plan: If she uses CPAP, it will be ordered to use here. - Current Meds Current Meds: Current Medications Generic Name Dose Route Start Last Admin Trade Name Freq PRN Reason Stop Dose Admin Carvedilol 3.125 mg 04/01/19 09:00 04/01/19 08:44 Coreg PO 3.125 mg BID SHANNAN Administration Heparin Sodium (Porcine) 5,000 unit 03/31/19 21:00 04/01/19 08:42 SUBQ 5,000 unit BID SHANNAN Administration Cefepime HCl 2 gm/ Sodium 100 mls @ 200 mls/hr 04/01/19 09:00 04/01/19 10:00 Chloride IV Infused BID SHANNAN Infusion Insulin Aspart 3 - 11 unit 04/01/19 08:00 04/01/19 11:41 Novolog SUBQ 9 unit 0800,1200,1700,2100 SHANNAN Administration Protocol Insulin Aspart 15 unit 04/01/19 08:00 04/01/19 11:41 Novolog SUBQ 15 unit TIDWM SHANNAN Administration Insulin Glargine 23 unit 04/01/19 09:00 04/01/19 08:45 Lantus Solostar SUBQ 23 unit BID SHANNAN Administration Levothyroxine Sodium 112 mcg 04/01/19 07:00 04/01/19 06:55 Synthroid PO 112 mcg QDAC SHANNAN Administration Levothyroxine Sodium 75 mcg 04/01/19 07:00 04/01/19 06:49 Synthroid PO 75 mcg QDAC SHANNAN Administration Lisinopril 5 mg 04/01/19 09:00 04/01/19 08:44 Zestril PO 5 mg DAILY SHANNAN Administration Paroxetine HCl 40 mg 04/01/19 09:00 04/01/19 08:44 Paxil PO 40 mg DAILY SHANNAN Administration Sodium Chloride 10 ml 04/01/19 01:00 10/22/19 09:32 Normal Saline Flush 0.9% IVP Not Given 0100,0900,1700 SHANNAN - Lab Result Fish Bone Diagrams: 04/01/19 05:06 04/01/19 05:06 - EKG Results EKG Interpreted Independently: Yes EKG Comparison: Changed from prior EKG EKG Findings: NSR, rate 71, 1sr degree AV block, deep Q waves in III, AVF. Since 12/21/18, inferior Q waves are new, and lateral St-T abn are now absent. - Additional Planning My Orders: My Active Orders 04/01/19 16:00 Lactobacillus Rhamnosus GG [Culturelle] 1 cap PO DAILY Multivitamin W/Minerals [Theragran M] 1 tab PO DAILYWM Subjective - Subjective Patient Reports: Feeling Better, Resting Comfortably Objective Vital Signs: Vital Signs - 24 hr 03/31/19 03/31/19 03/31/19 18:13 19:31 20:13 Temperature 37.1 C 37.1 C Heart Rate 77 75 Heart Rate [ 74 Brachial] Respiratory 16 22 20 Rate Blood Pressure 132/120 H Blood Pressure 132/51 H [Left Brachial artery] Blood Pressure [Right Brachial artery] O2 Saturation 3 L 94 96 03/31/19 04/01/19 04/01/19 21:00 00:47 03:06 Temperature 36.9 C 37.4 C 36.5 C Heart Rate Heart Rate [ 72 76 80 Brachial] Respiratory 18 20 20 Rate Blood Pressure Blood Pressure 156/56 H 138/66 H 142/58 H [Left Brachial artery] Blood Pressure [Right Brachial artery] O2 Saturation 95 94 95 04/01/19 04/01/19 08:07 11:46 Temperature 36.8 C 37 C Heart Rate Heart Rate [ 78 74 Brachial] Respiratory 16 18 Rate Blood Pressure Blood Pressure [Left Brachial artery] Blood Pressure 154/57 H 151/58 H [Right Brachial artery] O2 Saturation 95 95 Oxygen O2 Source [Without Activity] Nasal cannula O2 Source Nasal cannula Oxygen Flow Rate 3 I&O (Last 24 Hrs): Intake and Output Totals x24h 03/30/19 03/31/19 04/01/19 23:59 23:59 23:59 Intake Total 636.667 826.667 Output Total 950 Balance 636.667 -123.333 General: Alert, Oriented x3 HEENT: Mucous membr. moist/pink Neck: Supple Neuro: Alert Cardiovascular: No murmurs Respiratory: No respiratory distress, Breath sounds nml Abdomen: Soft, Other (Red and warm large area lateral, indurated and firm R lower and lateral abdomen) Extremities: No edema - Results Results: Laboratory Results WBC 24.0 x10^3/uL (4.8-10.8) H 04/01/19 05:06 RBC 3.61 10^6/uL (4.20-5.40) L 04/01/19 05:06 Hgb 10.7 g/dL (12.0-16.0) L 04/01/19 05:06 Hct 33.5 % (37.0-47.0) L 04/01/19 05:06 MCV 92.8 fL (81.0-99.0) 04/01/19 05:06 MCH 29.6 pg (27.0-31.0) 04/01/19 05:06 MCHC 31.9 g/dL (32.0-36.0) L 04/01/19 05:06 RDW 12.8 % (12.0-15.0) 04/01/19 05:06 Plt Count 293 10^3/uL (130-450) 04/01/19 05:06 MPV 8.9 fL (7.9-10.8) 04/01/19 05:06 Neut # (Auto) Not Reportable 04/01/19 05:06 Lymph # (Auto) Not Reportable 04/01/19 05:06 [place] # (Auto) Not Reportable 04/01/19 05:06 Eos # (Auto) Not Reportable 04/01/19 05:06 Baso # (Auto) Not Reportable 04/01/19 05:06 Absolute Nucleated RBC Not Reportable 04/01/19 05:06 Total Counted 100 04/01/19 05:06 Band Neuts % (Manual) 4 % (0-10) 04/01/19 05:06 Abnorm Lymph % (Manual) 0 % 04/01/19 05:06 Metamyelocytes % 1 % (-0) H 03/31/19 16:03 Nucleated RBC % Not Reportable 04/01/19 05:06 Neutrophils # (Manual) 18.0 10^3/uL (1.5-6.6) H 04/01/19 05:06 Lymphocytes # (Manual) 3.4 10^3/uL (1.5-3.5) 04/01/19 05:06 Monocytes # (Manual) 1.7 10^3/uL (0.0-1.0) H 04/01/19 05:06 Eosinophils # (Manual) 1.0 10^3/uL (0-0.7) H 04/01/19 05:06 Basophils # (Manual) 0.0 10^3/uL (0-0.1) 04/01/19 05:06 Differential Comment MANUAL DIFFERENTIAL 04/01/19 05:06 WBC Morphology NORMAL APPEARANCE (NORMAL) 04/01/19 05:06 Platelet Estimate NORMAL (130-450,000) (NORMAL) 04/01/19 05:06 Platelet Morphology NORMAL APPEARANCE (NORMAL) 04/01/19 05:06 RBC Morph Micro Appear NORMAL APPEARANCE (NORMAL) 04/01/19 05:06 PT 12.5 secs (9.9-12.6) 03/31/19 16:03 INR 1.1 (0.8-1.2) 03/31/19 16:03 Sodium 128 mmol/L (135-145) L 04/01/19 05:06 Potassium 4.7 mmol/L (3.5-5.0) 04/01/19 05:06 Chloride 89 mmol/L (101-111) L 04/01/19 05:06 Carbon Dioxide 29 mmol/L (21-32) 04/01/19 05:06 Anion Gap 10.0 (6-13) 04/01/19 05:06 BUN 42 mg/dL (6-20) H 04/01/19 05:06 Creatinine 1.5 mg/dL (0.4-1.0) H 04/01/19 05:06 Estimated GFR (MDRD) 33 (>89) L 04/01/19 05:06 Glucose 258 mg/dL (70-100) H 04/01/19 05:06 Glycated Hemoglobin 10.2 % (4.6-6.2) H 03/31/19 16:03 Estim Average Glucose 246 (70-100) H 03/31/19 16:03 Lactic Acid 1.6 mmol/L (0.5-2.2) 03/31/19 16:08 Calcium 9.1 mg/dL (8.5-10.3) 04/01/19 05:06 Phosphorus 2.8 mg/dL (2.5-4.6) 04/01/19 05:06 Magnesium 2.0 mg/dL (1.7-2.8) 04/01/19 05:06 Total Bilirubin 0.5 mg/dL (0.2-1.0) 03/31/19 16:03 AST 34 IU/L (10-42) 03/31/19 16:03 ALT 44 IU/L (10-60) 03/31/19 16:03 Alkaline Phosphatase 291 IU/L (42-121) H 03/31/19 16:03 Total Protein 7.7 g/dL (6.7-8.2) 03/31/19 16:03 Albumin 3.3 g/dL (3.2-5.5) 03/31/19 16:03 Globulin 4.4 g/dL (2.1-4.2) H 03/31/19 16:03 Albumin/Globulin Ratio 0.8 (1.0-2.2) L 03/31/19 16:03 Lipase 39 U/L (22-51) 03/31/19 16:03 Urine Color YELLOW 03/31/19 16:25 Urine Clarity HAZY (CLEAR) 03/31/19 16:25 Urine pH 7.5 PH (5.0-7.5) 03/31/19 16:25 Ur Specific [place] <=1.005 (1.002-1.030) 03/31/19 16:25 Urine Protein TRACE mg/dL (NEGATIVE) 03/31/19 16:25 Urine Glucose (UA) NEGATIVE mg/dL (NEGATIVE) 03/31/19 16:25 Urine Ketones NEGATIVE mg/dL (NEGATIVE) 03/31/19 16:25 Urine Occult Blood NEGATIVE (NEGATIVE) 03/31/19 16:25 Urine Nitrite POSITIVE (NEGATIVE) H 03/31/19 16:25 Urine Bilirubin NEGATIVE (NEGATIVE) 03/31/19 16:25 Urine Urobilinogen 0.2 (NORMAL) E.U./dL (NORMAL) 03/31/19 16:25 Ur Leukocyte Esterase LARGE (NEGATIVE) H 03/31/19 16:25 Urine RBC 0-5 /HPF (0-5) 03/31/19 16:25 Urine WBC 6-10 /HPF (0-5) H 03/31/19 16:25 Ur Squamous Epith Cells NONE SEEN (<= Few) 03/31/19 16:25 Urine Bacteria Many /HPF (None Seen) H 03/31/19 16:25 Ur Microscopic Review INDICATED 03/31/19 16:25 Urine Culture Comments INDICATED 03/31/19 16:25 - Procedures Procedures: Procedures DRAINAGE OF ABDOMEN SKIN, EXTERNAL APPROACH (12/21/18) EXCISION OF ABD SUBCU/FASCIA, OPEN APPROACH (12/21/18) INSERTION OF INFUSION DEV INTO SUP VENA CAVA, PERC APPROACH (12/21/18) RESPIRATORY VENTILATION, LESS THAN 24 CONSECUTIVE HOURS (12/21/18)
[2019-04-01] MEDS ORDERED: INSULIN GLARGINE 300 UNIT/3 ML PEN SUBQ SCH (21:00)
[2019-04-01] MEDS: FLUCONAZOLE 100 MG TABLET PO SCH (21:19)
[2019-04-02 05:35] LABS: BASOPHILS % (AUTO) 0.3 %; EOSINOPHILS % (AUTO) 4.4 %; HGB - HEMOGLOBIN 10.3 g/dL (12.0-16.0); LYMPHOCYTES % (AUTO) 15.9 %; MEAN CORPUSCULAR HEMOGLOBIN 28.6 pg (27.0-31.0); MEAN CORPUSCULAR HGB CONC 30.2 g/dL (32.0-36.0); MEAN CORPUSCULAR VOLUME 94.7 fL (81.0-99.0); MEAN PLATELET VOLUME 9.3 fL (7.9-10.8); MONOCYTES % (AUTO) 11.5 %; NEUTROPHILS % (AUTO) 59.4 %; PLT - PLATELET COUNT 292 10^3/uL (130-450); WHITE BLOOD COUNT 19.4 x10^3/uL (4.8-10.8)
[2019-04-02 05:43] LABS: ABNORMAL LYMPHS % (MANUAL) 0 %; CREATININE 1.9 mg/dL (0.4-1.0); MAGNESIUM 2.1 mg/dL (1.7-2.8); PHOSPHORUS 3.9 mg/dL (2.5-4.6)
[2019-04-02 06:07] LABS: BAND NEUTROPHILS % (MANUAL) 27 %; EOSINOPHILS # (MANUAL) 0.4 10^3/uL (0-0.7); LYMPHOCYTES # (MANUAL) 2.7 10^3/uL (1.5-3.5); LYMPHOCYTES % (MANUAL) 14 %; METAMYELOCYTES % (MANUAL) 5 %; MONOCYTES # (MANUAL) 1.4 10^3/uL (0.0-1.0); MYELOCYTES % (MANUAL) 5 %; RBC MORPHOLOGY (MULTIPLE) NORMAL APPEARANCE (NORMAL)
[2019-04-02 06:08] LABS: DIFFERENTIAL COMMENT MANUAL DIFFERENTIAL; PLATELET ESTIMATE, MANUAL NORMAL (130-450,000) (NORMAL)
[2019-04-02] MEDS: LEVOTHYROXINE 112 MCG TABLET PO SCH (06:28)
[2019-04-02] MEDS: LEVOTHYROXINE 75 MCG TABLET PO SCH (06:28)
[2019-04-02] MEDS: CEFEPIME 2 GM in SODIUM CHLORIDE 0.9% MINIBAG 100 ML IV SCH ×2 (08:52→21:14)
[2019-04-02] MEDS: MULTIVITAMIN W/MINERALS TABLET PO SCH (08:53)
[2019-04-02] MEDS: FLUCONAZOLE 100 MG TABLET PO SCH (08:53)
[2019-04-02] MEDS: HEPARIN 5,000 UNIT/ML VIAL SUBQ SCH ×2 (08:53→21:14)
[2019-04-02] MEDS: ASPIRIN EC 81 MG TABLET PO SCH (08:53)
[2019-04-02] MEDS: carvediloL 3.125 MG TABLET PO SCH ×2 (08:54→21:14)
[2019-04-02] MEDS: INSULIN GLARGINE 300 UNIT/3 ML PEN SUBQ SCH ×2 (08:54→21:16)
[2019-04-02] MEDS: LACTOBACILLUS RHAMNOSUS GG CAPSULE PO SCH (08:54)
[2019-04-02] MEDS: PARoxetine 10 MG TABLET PO SCH (08:54)
[2019-04-02] MEDS: CHOLECALCIFEROL 1,000 UNIT TABLET PO SCH (08:54)
[2019-04-02] MEDS: LISINOPRIL 5 MG TABLET PO SCH (08:54)
[2019-04-02] MEDS: INSULIN ASPART 300 UNIT/3 ML PEN SUBQ SCH ×7 (08:55→21:15)
[2019-04-02] MEDS ORDERED: NON FORMULARY MED (Multivitamin [Multivitamins] 1 EACH) PO SCH (09:00)
[2019-04-02] MEDS: SODIUM CHLORIDE FLUSH 0.9% 10 ML SYRINGE IVP SCH ×3 (09:18→21:17)
[2019-04-02] MEDS: CALCIUM CARB (OYSTER SHELL) 500 MG TABLET PO SCH (11:55)
--- NOTE | 2019-04-02 12:13 | PROVIDER PROGRESS NOTE ---
Assessment/Plan - Problem List (1) Abdominal wall cellulitis Assessment/Plan: The WBC has improved and the (outlined) areas of redness of the L and R lower abdomen are smaller. Blood cx are neg to date. Await culture results. Continue empiric iv antibiotics and anti-fungal Diflucan. (2) Malfunction of vacuum-assisted closure (VAC) device Qualifiers: Encounter type: subsequent encounter Qualified Code(s): T85.698D - Other mechanical complication of other specified internal prosthetic devices, implants and grafts, subsequent encounter Assessment/Plan: MAC Wound MAT MACHINE TENDER to see patient today, consult as requested. (3) Urinary tract infection due to Proteus Assessment/Plan: Proteus is growing and it is sensative to Cefipime. Will continue this antibiotic (4) Hyponatremia Assessment/Plan: Improved. Follow BMP daily. (5) Acute renal failure superimposed on chronic kidney disease Qualifiers: Chronic kidney disease stage: stage 2 (mild) Assessment/Plan: Slightly worse creat, since fluid restrictions started. Follow BMP daily. (6) Diabetes mellitus with hyperglycemia Qualifiers: Diabetes mellitus type: type 2 Diabetes mellitus senior care insulin use: with long goods drier use Qualified Code(s): E11.65 - Type 2 diabetes mellitus with hyperglycemia; Z79.4 - USP (current) use of insulin Assessment/Plan: Continue cc diet, Lantu and Reg ss Insulin. (7) Chronic systolic CHF (congestive heart failure), NYHA class 2 Assessment/Plan: No signs of fluid overload; no crackles or leg edema. Continue current meds (8) Anemia Assessment/Plan: Hgb dropped from 11 to 10 and stabilized. She is on her home Iron dose. Will order serum B12, Folate and Iron panel levels. replace if low. (9) Hypothyroidism Assessment/Plan: Her TSH is excessively high, but T4 is low therapeutic. Will continue present dose of Synthroid. (10) HTN (hypertension) Qualifiers: Hypertension type: essential hypertension Qualified Code(s): I10 - Essential (primary) hypertension Assessment/Plan: BP controlled on current (cardiac) meds (11) Morbid obesity with BMI of 45.0-49.9, adult Assessment/Plan: Chronic (12) OWEN (obstructive sleep apnea) Assessment/Plan: She has had witnessed apneic spells, and she even falls asleep in mid-sentence then awakens and keeps speaking. She is not on a CPAP device, she told her RN. (13) Ventricular bigeminy Assessment/Plan: Resolved. Trops were neg, EKG showed no acute changes but new Q waves were seen compared to several weeks ago. - Current Meds Current Meds: Current Medications Generic Name Dose Route Start Last Admin Trade Name Dung PRN Reason Stop Dose Admin Aspirin 81 mg 04/02/19 09:00 04/02/19 08:53 Ecotrin PO 81 mg DAILY SHANNAN Administration Calcium Carbonate/Glycine 500 mg 04/02/19 12:00 04/02/19 11:55 Oysco-500 PO 500 mg QDLUNCH SHANNAN Administration Carvedilol 3.125 mg 04/01/19 09:00 04/02/19 08:54 Coreg PO 3.125 mg BID SHANNAN Administration Cholecalciferol 1,000 unit 04/02/19 09:00 04/02/19 08:54 Vitamin D3 PO 1,000 unit DAILY SHANNAN Administration Fluconazole 100 mg 04/01/19 19:43 04/02/19 08:53 Diflucan PO 100 mg DAILY SHANNAN Administration Heparin Sodium (Porcine) 5,000 unit 03/31/19 21:00 04/02/19 08:53 SUBQ 5,000 unit BID SHANNAN Administration Cefepime HCl 2 gm/ Sodium 100 mls @ 200 mls/hr 04/01/19 09:00 04/02/19 09:30 Chloride IV Infused BID SHANNAN Infusion Vancomycin HCl 1.75 gm/ Sodium 500 mls @ 250 mls/hr 04/01/19 16:00 04/01/19 22:49 Chloride IV Infused Q24H SHANNAN Infusion Insulin Aspart 3 - 11 unit 04/01/19 08:00 04/02/19 08:56 Novolog SUBQ 5 unit 0800,1200,1700,2100 SHANNAN Administration Protocol Insulin Aspart 15 unit 04/01/19 08:00 04/02/19 08:55 Novolog SUBQ 15 unit TIDWM SHANNAN Administration Insulin Glargine 23 unit 04/01/19 09:00 04/02/19 08:54 Lantus Solostar SUBQ 23 unit BID SHANNAN Administration Lactobacillus Rhamnosus 1 cap 04/01/19 16:00 04/02/19 08:54 Culturelle PO 1 cap DAILY SHANNAN Administration Levothyroxine Sodium 112 mcg 04/01/19 07:00 04/02/19 06:28 Synthroid PO 112 mcg QDAC SHANNAN Administration Levothyroxine Sodium 75 mcg 04/01/19 07:00 04/02/19 06:28 Synthroid PO 75 mcg QDAC SHANNAN Administration Lisinopril 5 mg 04/01/19 09:00 04/02/19 08:54 Zestril PO 5 mg DAILY SHANNAN Administration Multivitamins/Minerals 1 tab 04/01/19 16:00 04/02/19 08:53 Theragran M PO 1 tab DAILYWM SHANNAN Administration Paroxetine HCl 40 mg 04/01/19 09:00 04/02/19 08:54 Paxil PO 40 mg DAILY SHANNAN Administration Sodium Chloride 10 ml 04/01/19 01:00 04/02/19 09:18 Normal Saline Flush 0.9% IVP 10 ml 0100,0900,1700 SHANNAN Administration - Lab Result Fish Bone Diagrams: 04/02/19 04:50 04/02/19 04:50 - Additional Planning My Orders: My Active Orders 04/01/19 16:00 Lactobacillus Rhamnosus GG [Culturelle] 1 cap PO DAILY Multivitamin W/Minerals [Theragran M] 1 tab PO DAILYWM 04/01/19 19:43 Fluconazole [Diflucan] 100 mg PO DAILY 04/02/19 08:05 Nebulizer/MDI Tx. [RC] .Q4 PRN Resp Teach Nebulizer/MDI [RC] .ONCE Levalbuterol [Xopenex] 1.25 mg INH Q4H PRN 04/02/19 09:00 Aspirin EC [Ecotrin] 81 mg PO DAILY Cholecalciferol [Vitamin D3] 1,000 unit PO DAILY 04/02/19 12:00 Calcium Carb (Oyster [place]) [Oysco-500] 500 mg PO QDLUNCH Subjective - Subjective Patient Reports: Feeling Better, Resting Comfortably Objective Vital Signs: Vital Signs - 24 hr 04/01/19 04/01/19 04/02/19 16:42 21:00 00:22 Temperature 36.6 C 36.5 C 36.6 C Heart Rate [ 72 70 Brachial] Respiratory 18 12 16 Rate Blood Pressure 146/49 H 157/72 H 128/59 L [Left Brachial artery] Blood Pressure [Right Brachial artery] O2 Saturation 98 98 97 04/02/19 04/02/19 04/02/19 06:26 07:57 11:48 Temperature 36.4 C L 36.4 C L Heart Rate [ 63 63 68 Brachial] Respiratory 18 17 16 Rate Blood Pressure 140/52 H [Left Brachial artery] Blood Pressure 129/41 L 123/64 [Right Brachial artery] O2 Saturation 96 99 96 Oxygen O2 Source [Without Activity] Nasal cannula O2 Source Nasal cannula Oxygen Flow Rate 3 I&O (Last 24 Hrs): Intake and Output Totals x24h 03/31/19 04/01/19 04/02/19 23:59 23:59 23:59 Intake Total 816.815 5775.667 1400 Output Total 950 300 Balance 636.667 306.877 8723 General: Alert, Oriented x3 HEENT: Mucous membr. moist/pink Neck: Supple Neuro: Non Focal Cardiovascular: Regular rate Respiratory: No respiratory distress, Breath sounds nml Abdomen: Soft, Other (Obese with pannus. The blotches are less red and smaller, less tender, on the left. The right is less red, a bandage is over the previous vac site.) Extremities: No edema - Results Results: Laboratory Results WBC 19.4 x10^3/uL (4.8-10.8) H 04/02/19 04:50 RBC 3.60 10^6/uL (4.20-5.40) L 04/02/19 04:50 Hgb 10.3 g/dL (12.0-16.0) L 04/02/19 04:50 Hct 34.1 % (37.0-47.0) L 04/02/19 04:50 MCV 94.7 fL (81.0-99.0) 04/02/19 04:50 MCH 28.6 pg (27.0-31.0) 04/02/19 04:50 MCHC 30.2 g/dL (32.0-36.0) L 04/02/19 04:50 RDW 13.0 % (12.0-15.0) 04/02/19 04:50 Plt Count 292 10^3/uL (130-450) 04/02/19 04:50 MPV 9.3 fL (7.9-10.8) 04/02/19 04:50 Neut # (Auto) Not Reportable 04/02/19 04:50 Lymph # (Auto) Not Reportable 04/02/19 04:50 [place] # (Auto) Not Reportable 04/02/19 04:50 Eos # (Auto) Not Reportable 04/02/19 04:50 Baso # (Auto) Not Reportable 04/02/19 04:50 Absolute Nucleated RBC Not Reportable 04/02/19 04:50 Total Counted 100 04/02/19 04:50 Band Neuts % (Manual) 27 % (0-10) H 04/02/19 04:50 Abnorm Lymph % (Manual) 0 % 04/02/19 04:50 Metamyelocytes % 5 % (-0) H 04/02/19 04:50 Myelocytes % 5 % (-0) H 04/02/19 04:50 Nucleated RBC % Not Reportable 04/02/19 04:50 Neutrophils # (Manual) 13.0 10^3/uL (1.5-6.6) H 04/02/19 04:50 Lymphocytes # (Manual) 2.7 10^3/uL (1.5-3.5) 04/02/19 04:50 Monocytes # (Manual) 1.4 10^3/uL (0.0-1.0) H 04/02/19 04:50 Eosinophils # (Manual) 0.4 10^3/uL (0-0.7) 04/02/19 04:50 Basophils # (Manual) 0.0 10^3/uL (0-0.1) 04/02/19 04:50 Differential Comment MANUAL DIFFERENTIAL 04/02/19 04:50 WBC Morphology NORMAL APPEARANCE (NORMAL) 04/01/19 05:06 Platelet Estimate NORMAL (130-450,000) (NORMAL) 04/02/19 04:50 Platelet Morphology NORMAL APPEARANCE (NORMAL) 04/01/19 05:06 RBC Morph Micro Appear NORMAL APPEARANCE (NORMAL) 04/02/19 04:50 PT 12.5 secs (9.9-12.6) 03/31/19 16:03 INR 1.1 (0.8-1.2) 03/31/19 16:03 Sodium 132 mmol/L (135-145) L 04/02/19 04:50 Potassium 4.8 mmol/L (3.5-5.0) 04/02/19 04:50 Chloride 93 mmol/L (101-111) L 04/02/19 04:50 Carbon Dioxide 29 mmol/L (21-32) 04/02/19 04:50 Anion Gap 10.0 (6-13) 04/02/19 04:50 BUN 49 mg/dL (6-20) H 04/02/19 04:50 Creatinine 1.9 mg/dL (0.4-1.0) H 04/02/19 04:50 Estimated GFR (MDRD) 25 (>89) L 04/02/19 04:50 Glucose 204 mg/dL (70-100) H 04/02/19 04:50 Glycated Hemoglobin 10.2 % (4.6-6.2) H 03/31/19 16:03 Estim Average Glucose 246 (70-100) H 03/31/19 16:03 Lactic Acid 1.6 mmol/L (0.5-2.2) 03/31/19 16:08 Calcium 9.0 mg/dL (8.5-10.3) 04/02/19 04:50 Phosphorus 3.9 mg/dL (2.5-4.6) 04/02/19 04:50 Magnesium 2.1 mg/dL (1.7-2.8) 04/02/19 04:50 Total Bilirubin 0.5 mg/dL (0.2-1.0) 03/31/19 16:03 AST 34 IU/L (10-42) 03/31/19 16:03 ALT 44 IU/L (10-60) 03/31/19 16:03 Alkaline Phosphatase 291 IU/L (42-121) H 03/31/19 16:03 Troponin I High Sens 21.5 pg/mL (2.3-14.8) H* 04/01/19 19:23 Total Protein 7.7 g/dL (6.7-8.2) 03/31/19 16:03 Albumin 3.3 g/dL (3.2-5.5) 03/31/19 16:03 Globulin 4.4 g/dL (2.1-4.2) H 03/31/19 16:03 Albumin/Globulin Ratio 0.8 (1.0-2.2) L 03/31/19 16:03 Lipase 39 U/L (22-51) 03/31/19 16:03 TSH 11.48 uIU/mL (0.34-5.60) H 04/02/19 04:50 Free T4 0.78 ng/dL (0.58-1.64) 04/02/19 04:50 Urine Color YELLOW 03/31/19 16:25 Urine Clarity HAZY (CLEAR) 03/31/19 16:25 Urine pH 7.5 PH (5.0-7.5) 03/31/19 16:25 Ur Specific [place] <=1.005 (1.002-1.030) 03/31/19 16:25 Urine Protein TRACE mg/dL (NEGATIVE) 03/31/19 16:25 Urine Glucose (UA) NEGATIVE mg/dL (NEGATIVE) 03/31/19 16:25 Urine Ketones NEGATIVE mg/dL (NEGATIVE) 03/31/19 16:25 Urine Occult Blood NEGATIVE (NEGATIVE) 03/31/19 16:25 Urine Nitrite POSITIVE (NEGATIVE) H 03/31/19 16:25 Urine Bilirubin NEGATIVE (NEGATIVE) 03/31/19 16:25 Urine Urobilinogen 0.2 (NORMAL) E.U./dL (NORMAL) 03/31/19 16:25 Ur Leukocyte Esterase LARGE (NEGATIVE) H 03/31/19 16:25 Urine RBC 0-5 /HPF (0-5) 03/31/19 16:25 Urine WBC 6-10 /HPF (0-5) H 03/31/19 16:25 Ur Squamous Epith Cells NONE SEEN (<= Few) 03/31/19 16:25 Urine Bacteria Many /HPF (None Seen) H 03/31/19 16:25 Ur Microscopic Review INDICATED 03/31/19 16:25 Urine Culture Comments INDICATED 03/31/19 16:25 - Procedures Procedures: Procedures DRAINAGE OF ABDOMEN SKIN, EXTERNAL APPROACH (12/21/18) EXCISION OF ABD SUBCU/FASCIA, OPEN APPROACH (12/21/18) INSERTION OF INFUSION DEV INTO SUP VENA CAVA, PERC APPROACH (12/21/18) RESPIRATORY VENTILATION, LESS THAN 24 CONSECUTIVE HOURS (12/21/18)
[2019-04-02 16:06] LABS: VANCOMYCIN,TROUGH 22.5 ug/mL (10.0-20.0)
[2019-04-02] MEDS: VANCOMYCIN INJ 1.75 GM in SODIUM CHLORIDE 0.9% 500 ML IV SCH (16:08)
[2019-04-02] MEDS ORDERED: SODIUM CHLORIDE 0.65% NASAL SPRAY NAS PRN (19:44)
[2019-04-03 05:04] LABS: BASOPHILS % (AUTO) 0.4 %; EOSINOPHILS % (AUTO) 5.7 %; HGB - HEMOGLOBIN 10.6 g/dL (12.0-16.0); MEAN CORPUSCULAR HEMOGLOBIN 29.4 pg (27.0-31.0); MEAN CORPUSCULAR VOLUME 94.7 fL (81.0-99.0); MONOCYTES % (AUTO) 11.3 %; NEUTROPHILS % (AUTO) 46.3 %; PLT - PLATELET COUNT 351 10^3/uL (130-450); RED BLOOD COUNT 3.61 10^6/uL (4.20-5.40); RED CELL DISTRIBUTION WIDTH 12.8 % (12.0-15.0); WHITE BLOOD COUNT 15.4 x10^3/uL (4.8-10.8)
[2019-04-03 05:13] LABS: CALCIUM 9.3 mg/dL (8.5-10.3); MAGNESIUM 2.2 mg/dL (1.7-2.8); PHOSPHORUS 4.2 mg/dL (2.5-4.6)
[2019-04-03 05:17] LABS: ABNORMAL LYMPHS % (MANUAL) 0 %
[2019-04-03 05:36] LABS: BAND NEUTROPHILS % (MANUAL) 8 %; EOSINOPHILS # (MANUAL) 1.2 10^3/uL (0-0.7); LYMPHOCYTES # (MANUAL) 2.3 10^3/uL (1.5-3.5); LYMPHOCYTES % (MANUAL) 15 %; METAMYELOCYTES % (MANUAL) 7 %; MONOCYTES # (MANUAL) 0.8 10^3/uL (0.0-1.0); MYELOCYTES % (MANUAL) 6 %
[2019-04-03 05:37] LABS: DIFFERENTIAL COMMENT MANUAL DIFFERENTIAL; PLATELET ESTIMATE, MANUAL NORMAL (130-450,000) (NORMAL); RBC MORPHOLOGY (MULTIPLE) NORMAL APPEARANCE (NORMAL)
[2019-04-03] MEDS: LEVOTHYROXINE 75 MCG TABLET PO SCH (06:42)
[2019-04-03] MEDS: LEVOTHYROXINE 112 MCG TABLET PO SCH (06:43)
[2019-04-03] MEDS: HEPARIN 5,000 UNIT/ML VIAL SUBQ SCH ×2 (08:28→21:48)
[2019-04-03] MEDS: INSULIN ASPART 300 UNIT/3 ML PEN SUBQ SCH ×7 (08:29→21:50)
[2019-04-03] MEDS: INSULIN GLARGINE 300 UNIT/3 ML PEN SUBQ SCH ×2 (08:31→21:51)
[2019-04-03] MEDS: PARoxetine 10 MG TABLET PO SCH (08:35)
[2019-04-03] MEDS: carvediloL 3.125 MG TABLET PO SCH ×2 (08:35→21:52)
[2019-04-03] MEDS: LACTOBACILLUS RHAMNOSUS GG CAPSULE PO SCH (08:36)
[2019-04-03] MEDS: CHOLECALCIFEROL 1,000 UNIT TABLET PO SCH (08:36)
[2019-04-03] MEDS: MULTIVITAMIN W/MINERALS TABLET PO SCH (08:36)
[2019-04-03] MEDS: FLUCONAZOLE 100 MG TABLET PO SCH (08:36)
[2019-04-03] MEDS: ASPIRIN EC 81 MG TABLET PO SCH (08:36)
[2019-04-03] MEDS: SODIUM CHLORIDE FLUSH 0.9% 10 ML SYRINGE IVP SCH ×2 (08:36→16:20)
[2019-04-03] MEDS ORDERED: levoFLOXacin 250 MG TABLET PO SCH (09:00)
[2019-04-03 09:04] LABS: % IRON SATURATION 26 % (20-50); IRON 71 ug/dL (28-170); TOTAL IRON BINDING CAPACITY 276 ug/dL (250-450); TRANSFERRIN 197 mg/dL (192-382)
[2019-04-03] MEDS ORDERED: VANCOMYCIN INJ 1 GM in SODIUM CHLORIDE 0.9% 250 ML IV SCH (10:00)
[2019-04-03] MEDS: SODIUM CHLORIDE 0.45% 1,000 ML IV SCH ×2 (10:28→22:35)
[2019-04-03] MEDS: CALCIUM CARB (OYSTER SHELL) 500 MG TABLET PO SCH (12:12)
--- NOTE | 2019-04-03 13:23 | CONSULTATION NOTE ---
Consultation Report: Call to [phone] for IV placement after IV infiltration followed by multiple failed attempts to place IV. Attempt x2 at L arm without succes. Attempt x1 @ R forearm w/ultrasound. 20ga 1.88". Easily aspirates and flushes. Secured. Pt tolerated the procedure without complcation. Report to RN.
[2019-04-03] MEDS: LEVALBUTEROL 1.25 MG/3 ML NEB INH PRN (15:11)
--- NOTE | 2019-04-03 17:09 | PROVIDER PROGRESS NOTE ---
Assessment/Plan - Problem List (1) Abdominal wall cellulitis Assessment/Plan: Blood cultures negative to date. Will change her empiric IV antibiotics to oral Levofloxacin and plan this for 7 more days (2) Malfunction of vacuum-assisted closure (VAC) device Qualifiers: Encounter type: subsequent encounter Qualified Code(s): T85.698D - Other mechanical complication of other specified internal prosthetic devices, implants and grafts, subsequent encounter Assessment/Plan: Vac now working, applied by [employer] PROFESSIONAL (3) Urinary tract infection due to Proteus Assessment/Plan: The Proteus is also sensitive to Levofloxacin (see #1) (4) Acute renal failure superimposed on chronic kidney disease Qualifiers: Chronic kidney disease stage: stage 2 (mild) Assessment/Plan: She had a marked increase in BUN to creatinine ratio since yesterday, this is due to oral fluid restriction, since she has not been on Lasix for several days. Will give 1 day of IV half-normal saline. She will probably not need Lasix daily at discharge since she "forgets to drink when she gets tired" (5) Hyponatremia Assessment/Plan: Improved. 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 Will increase her Lantus dose from 23U to 25U bid (7) Chronic systolic CHF (congestive heart failure), NYHA class 2 Assessment/Plan: She is euvolemic, even slightly dehydrated. The Lasix dose will be decreased to Sunday, Sunday, Sunday, Sunday at discharge. Continue her beta-juan diego, Lisinipril on hold while worsened creat (8) Anemia Assessment/Plan: Her folate level is normal, B12 is pending, iron stores are all good. Continue with her home iron replacement oral therapy (9) Hypothyroidism Assessment/Plan: Her TSH is excessively high, but T4 is low therapeutic. Will continue present dose of Synthroid. (10) HTN (hypertension) Qualifiers: Hypertension type: essential hypertension Qualified Code(s): I10 - Essential (primary) hypertension Assessment/Plan: Stable BP on current meds. (11) Morbid obesity with BMI of 45.0-49.9, adult Assessment/Plan: Chronic (12) OWEN (obstructive sleep apnea) Assessment/Plan: She does not have a home CPAP. OWEN will need outpt F/U and management. - Current Meds Current Meds: Current Medications Generic Name Dose Route Start Last Admin Trade Name Freq PRN Reason Stop Dose Admin Aspirin 81 mg 04/02/19 09:00 04/03/19 08:36 Ecotrin PO 81 mg DAILY SHANNAN Administration Calcium Carbonate/Glycine 500 mg 04/02/19 12:00 04/03/19 12:12 Oysco-500 PO 500 mg QDLUNCH SHANNAN Administration Carvedilol 3.125 mg 04/01/19 09:00 04/03/19 08:35 Coreg PO 3.125 mg BID SHANNAN Administration Cholecalciferol 1,000 unit 04/02/19 09:00 04/03/19 08:36 Vitamin D3 PO 1,000 unit DAILY SHANNAN Administration Fluconazole 100 mg 04/01/19 19:43 04/03/19 08:36 Diflucan PO 100 mg DAILY SHANNAN Administration Heparin Sodium (Porcine) 5,000 unit 03/31/19 21:00 04/03/19 08:28 SUBQ 5,000 unit BID SHANNAN Administration Sodium Chloride 1,000 mls @ 83.333 mls/hr 04/03/19 08:00 04/03/19 10:28 Normal Saline 0.45% IV 04/04/19 06:00 83.333 mls/hr .Q12H SHANNAN Administration Insulin Aspart 3 - 11 unit 04/01/19 08:00 04/03/19 12:11 Novolog SUBQ 7 unit 0800,1200,1700,2100 SHANNAN Administration Protocol Insulin Aspart 15 unit 04/01/19 08:00 04/03/19 12:11 Novolog SUBQ 15 unit TIDWM SHANNAN Administration Lactobacillus Rhamnosus 1 cap 04/01/19 16:00 04/03/19 08:36 Culturelle PO 1 cap DAILY SHANNAN Administration Levalbuterol HCl 1.25 mg 04/02/19 08:05 04/03/19 15:11 Xopenex INH 1.25 mg Q4H PRN Administration Shortness of Air/Wheezing Levofloxacin 750 mg 04/03/19 09:00 04/03/19 10:26 Levaquin PO 750 mg Q2D@0900 SHANNAN Administration Levothyroxine Sodium 112 mcg 04/01/19 07:00 04/03/19 06:43 Synthroid PO 112 mcg QDAC SHANNAN Administration Levothyroxine Sodium 75 mcg 04/01/19 07:00 04/03/19 06:42 Synthroid PO 75 mcg QDAC SHANNAN Administration Multivitamins/Minerals 1 tab 04/01/19 16:00 04/03/19 08:36 Theragran M PO 1 tab DAILYWM SHANNAN Administration Paroxetine HCl 40 mg 04/01/19 09:00 04/03/19 08:35 Paxil PO 40 mg DAILY SHANNAN Administration Sodium Chloride 10 ml 04/01/19 01:00 04/03/19 16:20 Normal Saline Flush 0.9% IVP 10 ml 0100,0900,1700 SHANNAN Administration - Lab Result Fish Bone Diagrams: 04/03/19 04:25 04/03/19 04:25 - Additional Planning My Orders: My Active Orders 04/03/19 Evaluate and Treat OT [OT] Routine Evaluate and Treat PT [PT] Routine 04/03/19 08:00 Sodium Chloride 0.45% [Normal Saline 0.45%] 1,000 ml IV 83.333 mls/hr 04/03/19 09:00 levoFLOXacin [Levaquin] 750 mg PO Q2D@0900 04/03/19 21:00 Insulin Glargine [Lantus Solostar] 25 unit SUBQ BID 04/03/19 Lunch Carb-controlled Diet [DIET] Subjective - Subjective Patient Reports: Feeling Better, Resting Comfortably, No Complaints Objective Vital Signs: Vital Signs - 24 hr 04/02/19 04/03/19 04/03/19 20:22 00:57 03:59 Temperature 36.4 C L 36.5 C 36.4 C L Heart Rate Heart Rate [ 69 59 L 66 Brachial] Respiratory 18 16 17 Rate Blood Pressure [Left Brachial artery] Blood Pressure 160/66 H 143/48 H 185/65 H [Right Brachial artery] O2 Saturation 100 97 97 04/03/19 04/03/19 04/03/19 04:16 07:34 13:28 Temperature 36.4 C L 36.4 C L Heart Rate Heart Rate [ 62 68 Brachial] Respiratory 20 20 Rate Blood Pressure 152/49 H 154/61 H [Left Brachial artery] Blood Pressure 175/44 H [Right Brachial artery] O2 Saturation 96 99 04/03/19 04/03/19 15:16 17:00 Temperature 36.6 C Heart Rate 64 Heart Rate [ 69 Brachial] Respiratory 20 18 Rate Blood Pressure [Left Brachial artery] Blood Pressure 150/63 H [Right Brachial artery] O2 Saturation 97 Oxygen O2 Source [Without Activity] Nasal cannula O2 Source Nasal cannula Oxygen Flow Rate 3 I&O (Last 24 Hrs): Intake and Output Totals x24h 04/01/19 04/02/19 04/03/19 23:59 23:59 23:59 Intake Total 8292.674 6235 660 Output Total 950 550 700 Balance 619.079 4478 -40 General: Alert, Oriented x3, Other (Not somnolent today, like all previous days) HEENT: Mucous membr. moist/pink Neck: Supple Neuro: Non Focal Cardiovascular: No murmurs Respiratory: No respiratory distress Abdomen: Soft, Other (Redness is less red and area is smaller of L abdomen, R abdomen is bandaged and wound vac in place) Extremities: No edema - Results Results: Laboratory Results WBC 15.4 x10^3/uL (4.8-10.8) H 04/03/19 04:25 RBC 3.61 10^6/uL (4.20-5.40) L 04/03/19 04:25 Hgb 10.6 g/dL (12.0-16.0) L 04/03/19 04:25 Hct 34.2 % (37.0-47.0) L 04/03/19 04:25 MCV 94.7 fL (81.0-99.0) 04/03/19 04:25 MCH 29.4 pg (27.0-31.0) 04/03/19 04:25 MCHC 31.0 g/dL (32.0-36.0) L 04/03/19 04:25 RDW 12.8 % (12.0-15.0) 04/03/19 04:25 Plt Count 351 10^3/uL (130-450) 04/03/19 04:25 MPV 9.0 fL (7.9-10.8) 04/03/19 04:25 Neut # (Auto) Not Reportable 04/03/19 04:25 Lymph # (Auto) Not Reportable 04/03/19 04:25 [place] # (Auto) Not Reportable 04/03/19 04:25 Eos # (Auto) Not Reportable 04/03/19 04:25 Baso # (Auto) Not Reportable 04/03/19 04:25 Absolute Nucleated RBC Not Reportable 04/03/19 04:25 Total Counted 100 04/03/19 04:25 Band Neuts % (Manual) 8 % (0-10) 04/03/19 04:25 Abnorm Lymph % (Manual) 0 % 04/03/19 04:25 Metamyelocytes % 7 % (-0) H 04/03/19 04:25 Myelocytes % 6 % (-0) H 04/03/19 04:25 Nucleated RBC % Not Reportable 04/03/19 04:25 Neutrophils # (Manual) 9.1 10^3/uL (1.5-6.6) H 04/03/19 04:25 Lymphocytes # (Manual) 2.3 10^3/uL (1.5-3.5) 04/03/19 04:25 Monocytes # (Manual) 0.8 10^3/uL (0.0-1.0) 04/03/19 04:25 Eosinophils # (Manual) 1.2 10^3/uL (0-0.7) H 04/03/19 04:25 Basophils # (Manual) 0.0 10^3/uL (0-0.1) 04/03/19 04:25 Differential Comment MANUAL DIFFERENTIAL 04/03/19 04:25 WBC Morphology NORMAL APPEARANCE (NORMAL) 04/01/19 05:06 Platelet Estimate NORMAL (130-450,000) (NORMAL) 04/03/19 04:25 Platelet Morphology NORMAL APPEARANCE (NORMAL) 04/01/19 05:06 RBC Morph Micro Appear NORMAL APPEARANCE (NORMAL) 04/03/19 04:25 PT 12.5 secs (9.9-12.6) 03/31/19 16:03 INR 1.1 (0.8-1.2) 03/31/19 16:03 Sodium 134 mmol/L (135-145) L 04/03/19 04:25 Potassium 5.2 mmol/L (3.5-5.0) H 04/03/19 04:25 Chloride 95 mmol/L (101-111) L 04/03/19 04:25 Carbon Dioxide 29 mmol/L (21-32) 04/03/19 04:25 Anion Gap 10.0 (6-13) 04/03/19 04:25 BUN 63 mg/dL (6-20) H 04/03/19 04:25 Creatinine 2.0 mg/dL (0.4-1.0) H 04/03/19 04:25 Estimated GFR (MDRD) 24 (>89) L 04/03/19 04:25 Glucose 188 mg/dL (70-100) H 04/03/19 04:25 Glycated Hemoglobin 10.2 % (4.6-6.2) H 03/31/19 16:03 Estim Average Glucose 246 (70-100) H 03/31/19 16:03 Lactic Acid 1.6 mmol/L (0.5-2.2) 03/31/19 16:08 Calcium 9.3 mg/dL (8.5-10.3) 04/03/19 04:25 Phosphorus 4.2 mg/dL (2.5-4.6) 04/03/19 04:25 Magnesium 2.2 mg/dL (1.7-2.8) 04/03/19 04:25 Iron 71 ug/dL (28-170) 04/03/19 04:25 TIBC 276 ug/dL (250-450) 04/03/19 04:25 % Saturation 26 % (20-50) 04/03/19 04:25 Transferrin 197 mg/dL (192-382) 04/03/19 04:25 Total Bilirubin 0.5 mg/dL (0.2-1.0) 03/31/19 16:03 AST 34 IU/L (10-42) 03/31/19 16:03 ALT 44 IU/L (10-60) 03/31/19 16:03 Alkaline Phosphatase 291 IU/L (42-121) H 03/31/19 16:03 Troponin I High Sens 21.5 pg/mL (2.3-14.8) H* 04/01/19 19:23 Total Protein 7.7 g/dL (6.7-8.2) 03/31/19 16:03 Albumin 3.3 g/dL (3.2-5.5) 03/31/19 16:03 Globulin 4.4 g/dL (2.1-4.2) H 03/31/19 16:03 Albumin/Globulin Ratio 0.8 (1.0-2.2) L 03/31/19 16:03 Lipase 39 U/L (22-51) 03/31/19 16:03 Folate 30.00 ng/mL (5.90 - >24.8) 04/03/19 04:25 TSH 11.48 uIU/mL (0.34-5.60) H 04/02/19 04:50 Free T4 0.78 ng/dL (0.58-1.64) 04/02/19 04:50 Urine Color YELLOW 03/31/19 16:25 Urine Clarity HAZY (CLEAR) 03/31/19 16:25 Urine pH 7.5 PH (5.0-7.5) 03/31/19 16:25 Ur Specific [place] <=1.005 (1.002-1.030) 03/31/19 16:25 Urine Protein TRACE mg/dL (NEGATIVE) 03/31/19 16:25 Urine Glucose (UA) NEGATIVE mg/dL (NEGATIVE) 03/31/19 16:25 Urine Ketones NEGATIVE mg/dL (NEGATIVE) 03/31/19 16:25 Urine Occult Blood NEGATIVE (NEGATIVE) 03/31/19 16:25 Urine Nitrite POSITIVE (NEGATIVE) H 03/31/19 16:25 Urine Bilirubin NEGATIVE (NEGATIVE) 03/31/19 16:25 Urine Urobilinogen 0.2 (NORMAL) E.U./dL (NORMAL) 03/31/19 16:25 Ur Leukocyte Esterase LARGE (NEGATIVE) H 03/31/19 16:25 Urine RBC 0-5 /HPF (0-5) 03/31/19 16:25 Urine WBC 6-10 /HPF (0-5) H 03/31/19 16:25 Ur Squamous Epith Cells NONE SEEN (<= Few) 03/31/19 16:25 Urine Bacteria Many /HPF (None Seen) H 03/31/19 16:25 Ur Microscopic Review INDICATED 03/31/19 16:25 Urine Culture Comments INDICATED 03/31/19 16:25 Last Dose Date 04/02/19 04/02/19 15:46 Last Dose Time 224804/02/19 15:46 Vancomycin Trough 22.5 ug/mL (10.0-20.0) H 04/02/19 15:46 - Procedures Procedures: Procedures DRAINAGE OF ABDOMEN SKIN, EXTERNAL APPROACH (12/21/18) EXCISION OF ABD SUBCU/FASCIA, OPEN APPROACH (12/21/18) INSERTION OF INFUSION DEV INTO SUP VENA CAVA, PERC APPROACH (12/21/18) RESPIRATORY VENTILATION, LESS THAN 24 CONSECUTIVE HOURS (12/21/18)
[2019-04-04 05:21] LABS: BASOPHILS % (AUTO) 0.4 %; EOSINOPHILS % (AUTO) 4.5 %; HGB - HEMOGLOBIN 10.6 g/dL (12.0-16.0); LYMPHOCYTES % (AUTO) 21.2 %; MEAN CORPUSCULAR HEMOGLOBIN 29.4 pg (27.0-31.0); MEAN CORPUSCULAR HGB CONC 30.8 g/dL (32.0-36.0); MEAN CORPUSCULAR VOLUME 95.3 fL (81.0-99.0); MEAN PLATELET VOLUME 9.1 fL (7.9-10.8); MONOCYTES % (AUTO) 11.4 %; NEUTROPHILS % (AUTO) 44.9 %; PLT - PLATELET COUNT 372 10^3/uL (130-450); RED BLOOD COUNT 3.61 10^6/uL (4.20-5.40); RED CELL DISTRIBUTION WIDTH 13.1 % (12.0-15.0); WHITE BLOOD COUNT 13.8 x10^3/uL (4.8-10.8)
[2019-04-04 05:29] LABS: CALCIUM 9.6 mg/dL (8.5-10.3); CREATININE 1.9 mg/dL (0.4-1.0)
[2019-04-04 05:43] LABS: ABNORMAL LYMPHS % (MANUAL) 0 %
[2019-04-04 06:05] LABS: BAND NEUTROPHILS % (MANUAL) 17 %; BASOPHILS # (MANUAL) 0.1 10^3/uL (0-0.1); BASOPHILS % (MANUAL) 1 %; DIFFERENTIAL COMMENT MANUAL DIFFERENTIAL; EOSINOPHILS # (MANUAL) 0.3 10^3/uL (0-0.7); LYMPHOCYTES # (MANUAL) 2.3 10^3/uL (1.5-3.5); LYMPHOCYTES % (MANUAL) 17 %; METAMYELOCYTES % (MANUAL) 2 %; MONOCYTES # (MANUAL) 1.9 10^3/uL (0.0-1.0); MYELOCYTES % (MANUAL) 11 %; PLATELET ESTIMATE, MANUAL NORMAL (130-450,000) (NORMAL); RBC MORPHOLOGY (MULTIPLE) NORMAL APPEARANCE (NORMAL)
[2019-04-04] MEDS: LEVOTHYROXINE 75 MCG TABLET PO SCH (06:53)
[2019-04-04] MEDS: LEVOTHYROXINE 112 MCG TABLET PO SCH (06:56)
[2019-04-04] MEDS: SODIUM CHLORIDE FLUSH 0.9% 10 ML SYRINGE IVP SCH ×2 (06:57→08:32)
[2019-04-04] MEDS: LEVALBUTEROL 1.25 MG/3 ML NEB INH PRN (07:45)
[2019-04-04 08:14] VITALS: BP 190/69
[2019-04-04] MEDS: PARoxetine 10 MG TABLET PO SCH (08:24)
[2019-04-04] MEDS: CHOLECALCIFEROL 1,000 UNIT TABLET PO SCH (08:25)
[2019-04-04] MEDS: ASPIRIN EC 81 MG TABLET PO SCH (08:25)
[2019-04-04] MEDS: LACTOBACILLUS RHAMNOSUS GG CAPSULE PO SCH (08:25)
[2019-04-04] MEDS: FLUCONAZOLE 100 MG TABLET PO SCH (08:25)
[2019-04-04] MEDS: carvediloL 3.125 MG TABLET PO SCH (08:25)
[2019-04-04] MEDS: MULTIVITAMIN W/MINERALS TABLET PO SCH (08:25)
[2019-04-04] MEDS: INSULIN GLARGINE 300 UNIT/3 ML PEN SUBQ SCH (08:26)
[2019-04-04] MEDS: INSULIN ASPART 300 UNIT/3 ML PEN SUBQ SCH ×4 (08:27→12:40)
[2019-04-04] MEDS: HEPARIN 5,000 UNIT/ML VIAL SUBQ SCH (08:27)
--- NOTE | 2019-04-04 08:44 | Discharge Plan ---
Discharge Plan Problem Reviewed?: Yes Disposition: Home Health Service Condition: Stable Prescriptions: Furosemide 40 mg PO SUMOWEFR #15 tablet Lactobacillus Rhamnosus GG [Culturelle] 1 cap PO DAILY #7 capsule Levofloxacin [Levaquin] 750 mg PO DAILY #7 tablet Multivitamin W/Minerals [Theragran M] 1 tab PO DAILYWM #30 tablet Diet: Diabetic Activity Restrictions: Activity as Tolerated Shower Restrictions: No Assistance Devices: Walker Weight Bearing: Full Weight Health Concerns: Admitted with confusion and abdominal wall cellulitis and wound vac not functioning properly. Plan of Treatment: Antibiotics were given iv then transitioned to oral, the wound vac was re- positioned and working, dehydration was treated with iv fluids. The Lasix can now be taken on Mon, Wed, Fri, Sun, to decrease the stress to your kidneys. Antibiotics were ordered to take for 7 more days, orally, along with Culturelle. New vitamin with minerals was ordered. All other pre-hospital medications can be resumed. Resume using the previous wound vac. Resume Home Health Care. Keep the appointment to surgeon, Dr Garrett Tinajero, and any appointments to PCP. Care Goals: Improvement in abdominal wall wound and overall strength. Assessment: The patient is agreeable with the plan. No Smoking: If you smoke, Please STOP! Call for help. Follow-up with: Ehsan Arnold MD [Primary Care Provider] -
[2019-04-04] MEDS ORDERED: LISINOPRIL 5 MG TABLET PO SCH (09:00)
[2019-04-04] MEDS ORDERED: SPIRONOLACTONE 25 MG TABLET PO SCH (09:00)
[2019-04-04] MEDS: CALCIUM CARB (OYSTER SHELL) 500 MG TABLET PO SCH (11:05)
[2019-04-04] MEDS ORDERED: INSULIN ASPART 18 UNIT SUBQ SCH (12:00)
[2019-04-04] MEDS ORDERED: INSULIN REGULAR HUMAN SUBQ SCH (14:00)
[2019-04-04] MEDS ORDERED: NON FORMULARY MED (Lovastatin [Lovastatin] 40 MG) PO SCH (21:00)
--- NOTE | 2019-04-09 12:43 | DISCHARGE SUMMARY ---
"Discharge Summary Admit Date: 03/31/19 Discharge Date: 04/04/19 Discharging Provider: Dr Stacy Salmeron Primary Care Provider: Dr Ehsan Arnold Condition at Discharge: Stable Discharge Disposition: Home Health Service - DIAGNOSES Admission Diagnoses: (1) Abdominal wall cellulitis (2) Diabetes mellitus with hyperglycemia (3) Chronic systolic CHF (congestive heart failure), NYHA class 2 (4) HTN (hypertension) (5) Wound of abdomen (6) Acute renal failure superimposed on chronic kidney disease (7) Depression with anxiety (8) Hypothyroidism (9) OWEN (obstructive sleep apnea) Discharge Diagnoses with Status of Each Condition: See below - HPI History of Present Illness: From the admission H&P of Dr Brittnee Lord: This is a morbidly obese female who lives in her own home. She has 2 friends that live with her and help take care of her. She was last admitted to our hospital December 21. She noticed a redness over her right lower abdomen for 2 days. It has been getting worse. She then started having fevers, weakness. Glucose started going up. In the emergency room she had an elevated white cell count, a glucose greater than 400. And a large geographical cellulitis of her right lower abdominal wall. She initially responded to empiric antibiotics with vancomycin and cefazolin. Then 2 days later she started having an increasing stinging and aching. CT scan was done. General surgery was consulted. IV antibiotics were continued and she was watched. Unfortunately the pain continued, and her white cell count started rebounding back up. She was taken to the OR and diagnosis having early necrotizing fasciitis. And she was transferred to [facility] December 30. The patient states she was there for 11 days. Had 4 surgeries. She has a wound VAC in. She is followed by [facility]. Unfortunately today's wound VAC was improperly placed. This section is not working because the sponge was not properly prepared. In addition it is noted that the patient has abdominal wall redness, heat that is spreading from the wound into the right mid axillary line and right flank. She also has an area of left lower quadrant redness, blanching rash, and heat. Patient states is not very painful. She was brought into the emergency room and evaluated by ER provider, Dr. Cruz. Lactic acid is 1.6. Her white cell count is 23.6 thousand with 19% bands. She does not have a fever. She was initially with a blood pressure of 104/90. On examination she has a spreading cellulitis of both lower anterior abdominal cheng. The right appears worse and that it is spreading into the right mid axillary line and right flank. - CONSULTS | PROCEDURES Consultations: Lizz Delarosa NP Procedures: Replacement of wound vac at bedside - HOSPITAL COURSE Hospital Course: (1) Abdominal wall cellulitis With antibiotics, her confluent areas of redness and heat improved and her confusion resolved. Blood cultures were done and remained negative to date. She was started on empiric IV antibiotics with Cefepime and Vanco then changed to oral Levofloxacin to take for 7 more days (2) Malfunction of vacuum-assisted closure (VAC) device She had wet to dry drssings applied, as advised by [facility], until she was seen by the [facility] Wound provider, Lizz Delarosa NP, who restarted a wound vac. The hospital vac was then changed to her home unit on the day of discharge. (3) Urinary tract infection due to Proteus Her urine culture grew Proteus, and the empiric iv Cefepime was changed to oral Levofloxacin, based on sensitivities. (4) Acute renal failure superimposed on chronic kidney disease At admission her BUN/creat were 37/1.4. This bernardo to 63/2.0 due to oral fluid r estriction, even without being on Lasix for several days. She required a day of iv hydration. At discharge, her daily Lasix was advised to be taken Sun, Sun, Sun, Sun. (5) Hyponatremia Admission sodium of 130 improved to 135 with free water restriction. (6) Diabetes mellitus with hyperglycemia She was on a cc diet and Lantus Insulin plus a sliding scale. Glucoses were running in the high 200s. Her A1c was 10.2 at admission, indicating poor cont rol, likely due to persistent infection. (7) Chronic systolic CHF (congestive heart failure), NYHA class 2 She was euvolemic, even slightly dehydrated. She was continued on her beta- juan diego, but Lisinipril and LAsix were on hold due to elevated creat. At discharge, the Lasix dose was be decreased to Sunday, Sunday, Sunday, Sunday. (8) Anemia Her Hgb was 11.5>> 10.6. Her folate level is normal, B12 was pending, and iron stores are all good. She was kept on her home iron replacement oral therapy. (9) Hypothyroidism Her TSH is excessively high at 11.48, but T4 is low therapeutic at 0.78. Thus, she was continued on her present home dose of Synthroid. (10) HTN (hypertension) Stable BP on current meds. (11) Morbid obesity with BMI of 45.0-49.9, adult Chronic and she is mostly bed and chair bound. (12) OWEN (obstructive sleep apnea) She does not have a home CPAP. OWEN will need outpt F/U and management. - ALLERGIES Allergies/Adverse Reactions: Allergies Allergy/AdvReac Type Severity Reaction Status Date / Time codeine Allergy Unknown Verified 03/31/19 15:16 - MEDICATIONS Home Medications: Ambulatory Orders Medication Instructions Recorded Confirmed Carvedilol 3.125 mg PO DAILY 01/29/16 04/02/19 Levothyroxine [Synthroid] 112 mcg PO QDAC #30 tablet 12/28/17 04/02/19 Lisinopril 5 mg PO DAILY #30 tablet 12/28/17 04/02/19 Spironolactone [Aldactone] 25 mg PO DAILY #30 tablet 12/28/17 04/02/19 Levalbuterol [Xopenex] 3 ml INH QID PRN 11/18/18 04/02/19 Ascorbic Acid [Vitamin C] 500 mg PO DAILY 12/20/18 04/02/19 Aspirin [Aspirin EC] 81 mg PO DAILY 12/20/18 04/02/19 C,E,Zinc,Copper 11/Pqooz3x/Lut 1 each PO DAILY 12/20/18 04/02/19 [Ocuvite Adult 50 Plus Softgel] Calcium Carbonate [Calcium] 500 mg PO DAILY 12/20/18 04/02/19 Cholecalciferol (Vitamin D3) 1,000 unit PO DAILY 12/20/18 04/02/19 [Vitamin D3] Garlic 1,000 mg PO DAILY 12/20/18 04/02/19 Loratadine 10 mg PO DAILY 12/20/18 04/02/19 Multivitamin [Multivitamins] 1 each PO DAILY 12/20/18 04/02/19 Insulin Aspart (Vial) [NovoLOG 18 - 23 unit SUBQ TIDWM 04/02/19 04/02/19 (VIAL FOR ED USE)] Insulin Regular Human [NovoLIN R] 37 unit SUBQ TID 04/02/19 04/02/19 Levothyroxine [Synthroid] 75 mcg PO QDAC 04/02/19 04/02/19 Lovastatin 40 mg PO QPM 04/02/19 04/02/19 PARoxetine HCl [Paroxetine HCl] 40 mg PO DAILY 04/02/19 04/02/19 Furosemide 40 mg PO SUMOWEFR #15 tablet 04/04/19 Lactobacillus Rhamnosus GG 1 cap PO DAILY #7 capsule 04/04/19 [Culturelle] Levofloxacin [Levaquin] 750 mg PO DAILY #7 tablet 04/04/19 Multivitamin W/Minerals [Theragran 1 tab PO DAILYWM #30 tablet 04/04/19 M] - PHYSICAL EXAM AT DISCHARGE General Appearance: positive: No acute distress, Alert Eyes Bilateral: positive: Normal inspection, PERRL ENT: positive: ENT inspection nml Neck: positive: Nml inspection, Other (Obese neck, cvannot estimate JVD) Respiratory: positive: No respiratory distress Cardiovascular: positive: No murmur, Other (distant heart sounds due to large breasts) Abdomen: positive: Other (Obese with a pannus, R wound vac in place, pink induration of R lower and L lower abdomen, not warm or tender) Extremities: positive: No pedal edema Neurologic/Psychiatric: positive: Oriented x3, Motor nml, Other (Gait not assessed) - LABS Result Diagrams: 04/04/19 04:45 04/04/19 04:45 - DIAGNOSTIC IMAGING Diagnostic Imaging Results: Final report reviewed - FOLLOW UP Follow Up: See PCP in 1-2 weeks Keep appointment with Dr Garrett Tinajero regarding cellulitis F/u"
== END 2019-04-04 13:38 | disposition home health service (06) | DRG 603 ==
LOC: ED 15:05 → UNDOADMIN 18:07 → MS3 18:07 → UNDODISIN 04-04 13:38
PROVIDERS: ADMIT Internal Medicine; ATTEND Internal Medicine
DX: L03.311 Cellulitis of abdominal wall (principal); Z68.43 Body mass index [BMI] 50.0-59.9, adult; Z68.42 Body mass index [BMI] 45.0-49.9, adult; T85.698A Other mechanical complication of other specified internal prosthetic devices, implants and grafts, initial encounter; N39.0 Urinary tract infection, site not specified; I50.9 Heart failure, unspecified; I13.0 Hypertensive heart and chronic kidney disease with heart failure and stage 1 through stage 4 chronic kidney disease, or unspecified chronic kidney disease; G47.30 Sleep apnea, unspecified; I50.22 Chronic systolic (congestive) heart failure; N17.9 Acute kidney failure, unspecified; E87.1 Hypo-osmolality and hyponatremia; B96.4 Proteus (mirabilis) (morganii) as the cause of diseases classified elsewhere; E66.01 Morbid (severe) obesity due to excess calories; E11.65 Type 2 diabetes mellitus with hyperglycemia; E11.22 Type 2 diabetes mellitus with diabetic chronic kidney disease; N18.9 Chronic kidney disease, unspecified; D63.1 Anemia in chronic kidney disease; G47.33 Obstructive sleep apnea (adult) (pediatric); J44.9 Chronic obstructive pulmonary disease, unspecified; E78.00 Pure hypercholesterolemia, unspecified; I27.20 Pulmonary hypertension, unspecified; I44.0 Atrioventricular block, first degree; E03.9 Hypothyroidism, unspecified; F41.8 Other specified anxiety disorders; R53.83 Other fatigue; I25.10 Atherosclerotic heart disease of native coronary artery without angina pectoris; J32.9 Chronic sinusitis, unspecified; R35.0 Frequency of micturition; R32 Unspecified urinary incontinence; H54.7 Unspecified visual loss; H91.90 Unspecified hearing loss, unspecified ear; Z66 Do not resuscitate; Y82.8 Other medical devices associated with adverse incidents; Z79.899 Other long term (current) drug therapy; Z79.4 Long term (current) use of insulin; Y92.009 Unspecified place in unspecified non-institutional (private) residence as the place of occurrence of the external cause; Z79.82 Long term (current) use of aspirin; Z87.891 Personal history of nicotine dependence; I25.2 Old myocardial infarction; Z86.14 Personal history of Methicillin resistant Staphylococcus aureus infection
CPT/HCPCS: 36415; 74177; 80048; 80053; 80202; 81001; 82746; 83036; 83540; 83605; 83690; 83735; 84100; 84439; 84443; 84466; 84484; 85025; 85610; 87040; 87077; 87086; 87181; 93005; 94640; 96365; 96366; 97161; 99284; 99285; A9270; J1815; J3370; J7120; Q9967; 81003

== ENCOUNTER 2020-01-02 12:44 | Outpatient (CLI) | payer MEDICARE | END 2020-01-02 12:45 | disposition EMS.NT | LOC: EMS 12:44 | PROVIDERS: ATTEND Surgery | DX: R53.1 Weakness (principal) ==

== ENCOUNTER 2020-05-11 13:30 | Outpatient (CLI) | payer MEDICARE ==
--- NOTE | 2020-05-11 17:46 | CONSULTATION NOTE ---
Palliative Care Consultation - Referral Referring Provider: Dr. Tai Callahan Time of Visit: 2325-0403 Referral setting: Home Referral Reason: Debility/Advanced Care Planning - Information Sources Records reviewed: Previous records reviewed History/Review of Systems obtained from: Patient, Caregiver (Vandana) Exam limitations: No limitations - History of Present Illness Brief History of Present Illness: This is a horacio 84-year-old female who was seen and evaluated within her home for initial palliative care consultation due to multiple comorbidities, underlying debility and difficulty to leave her home to attend provider appointments and advanced care planning with her caregiver/friend, Vandana present. 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 She spent approximately 2 months at [facility] and then was transferred to [facility] where she was approximately there for 2 months. She declined facility level care and was discharged home into the care of of her friend/caregiver Vandana where she had a mood wound VAC for approximately 10 months and the site ultimately closed. She reports that during that time she did not experience any pain or require any pain medication. The patient has a longstanding history of diabetes mellitus for approximately 15 to 20 years. She is insulin-dependent. No reports of hypoglycemic events. She monitors her blood glucose routinely. She is also on Novolin R with sliding scale coverage based on her blood glucose levels. She also has a history of pulmonary hypertension due to COPD.She has been on supplemental oxygen therapy for approximately 3 years maintained on 3 L via nasal cannula. She denies a history of COPD exacerbations. The patient reports to nasal dryness and at the present time is not using any saline nasal spray or moisturization for her nasal passageways. The patient is physically deconditioned and can only ambulate short distances with her Rollator with arm supports with in her home. At times, she feels like her legs are going to give out on her. She has not had any recent falls. She denies any new neuropathy to her upper or lower extremities. The patient does express that she is finding her eyesight is becoming poor more specifically in her left eye. She does have a history of cataract extractions to both eyes. She also has had upper dentures for a long period of time and wishes to be reevaluated for a new set and fit. She has not made any attempts to call dental or ophthalmic practices due to her coverage with Medicare. The BANKING SPECIALIST encouraged her to contact local providers and asked regarding fees and services as Medicare should cover these services. The patient is presently expressing grief as she lost her son on Sunday. Although the was not unexpected due to his multiple health conditions this has been a further loss for the patient of her children. This is now the fourth child of 6 that she has lost. She was able to sleep well last evening and thus, was late to getting up for this appointment today. The patient has a strong support from her friend/caregiver Vandana and her , Terrence as well as 2 with her 2 remaining children. The patient is morbidly obese, well groomed, and is seen in her living room in her lift assist chair. No evidence of acute distress. Medical/Surgical History - Past Medical History Cardiovascular: reports: Congestive heart failure (Diastolic dysfunction), Hypertension, High cholesterol, Coronary artery disease, [place], Other (Pulmonary HTN) Respiratory: reports: COPD (on 3L via NC of supplemental oxygen), Shortness of breath, Sleep apnea (does not wear a CPAP), Other Neuro: None Neuro: reports: Head injury, Tremors Endocrine/Autoimmune: reports: Type 2 diabetes, HyPOthyroidism GI: reports: None PULMONOLOGIST INTENSIVIST: reports: Other () : reports: Frequency HEENT: reports: Chronic sinusitis, Chronic hearing loss Psych: reports: Anxiety Musculoskeletal: reports: Fatigue Derm: reports: Other drug resistant infections MRSA Hx?: Yes Other Past Medical History: Necrotizing fasciitis of the right abdominal wall secondary to MRSA 2018 - Past Surgical History /PULMONOLOGIST INTENSIVIST: reports: Hysterectomy (at age 29) HEENT: reports: Cataracts, Tonsil/Adenoidectomy Derm: reports: Debridement - Substance History Use: Uses substance without health or social issues: NONE Social History - Living Situation Living arrangement: At home Living Situation: With caregiver(s) (friend/caregiver Vandana and her , Terrence) Support System: The patient was in 1989 after her of an [place]. She took care of her for approximately 17 years prior to his as he had residual effects from a CVA. The patient and her had 6 children, 3 boys and 3 girls. One of her children had Down syndrome and subsequently at age 60. The patient has only 2 remaining children, a boy and a girl. The patient grew up in the [facility]. She moved to [facility] in 1992. Her best friends is was an RN in [place]. The patient has Vandana who serves as her primary caregiver and additional assistance from her , Terrence. Vandana has known the patient for 3 years. Vandana's contact number is [phone]. Family History - Family History Family History: Mother: , Father: Family History Comment/Other: Family history noncontributory Medications/Allergies - Medications Home Medications: Ambulatory Orders Medication Instructions Recorded Confirmed carvediloL [Carvedilol] 3.125 mg PO DAILY 01/29/16 05/11/20 Levothyroxine [Synthroid] 112 mcg PO QDAC #30 tablet 12/28/17 05/11/20 Spironolactone [Aldactone] 25 mg PO DAILY #30 tablet 12/28/17 05/11/20 lisinopriL [Lisinopril] 5 mg PO DAILY #30 tablet 12/28/17 05/11/20 Levalbuterol [Xopenex] 3 ml INH QID PRN 11/18/18 05/11/20 Ascorbic Acid [Vitamin C] 1,000 mg PO DAILY 12/20/18 05/11/20 Aspirin [Aspirin EC] 81 mg PO DAILY 12/20/18 05/11/20 C,E,Zinc,Copper 11/Oteob4v/Lut 1 each PO DAILY 12/20/18 05/11/20 [Ocuvite Adult 50 Plus Softgel] Calcium Carbonate [Calcium] 500 mg PO BID 12/20/18 05/11/20 Cholecalciferol (Vitamin D3) 1,000 unit PO DAILY 12/20/18 05/11/20 [Vitamin D3] Garlic 1,000 mg PO DAILY 12/20/18 05/11/20 Loratadine 10 mg PO DAILY 12/20/18 05/11/20 Multivitamin [Multivitamins] 1 each PO DAILY 12/20/18 04/02/19 Levothyroxine [Synthroid] 75 mcg PO QDAC 04/02/19 05/11/20 Lovastatin 40 mg PO QPM 04/02/19 05/11/20 PARoxetine HCL [Paroxetine HCl] 40 mg PO DAILY 10/23/19 12/01/20 levoFLOXacin [Levaquin] 750 mg PO DAILY #7 tablet 04/04/19 Cranberry 1 cap PO DAILY 05/11/20 Furosemide 40 mg PO DAILY 05/11/20 05/11/20 Levemir 28 units SQ BID 05/11/20 Novalin R 05/11/20 Vitamin B12 1 cap PO DAILY 05/11/20 - Allergies Allergies/Adverse Reactions: Allergies Allergy/AdvReac Type Severity Reaction Status Date / Time codeine Allergy Unknown Verified 05/11/20 17:50 Review of Systems - Constitutional Constitutional: reports: Weight stable. denies: Fever, Weight loss - Eyes Eyes: reports: Vision loss (left eye see HPI), Corrective lenses - Ears, Nose & Throat Ears, Nose & Throat: reports: Dentures. denies: Hearing aids, Dry mouth - Cardiovascular Cardiovascular: reports: Decr. exercise tolerance. denies: Chest pain, Edema - Respiratory Respiratory: denies: Cough, Wheezing - Gastrointestinal Gastrointestinal: reports: Good appetite. denies: Constipation, Vomiting - Genitourinary Genitourinary: denies: Dysuria, Incontinence (Patient reports that when she develops a urinary tract infection she typically has incontinence, frequency as well as mental fogginess.) - Integumentary Integumentary: denies: Pruritis - Neurological Neurological: reports: General weakness - Psychiatric Psychiatric: reports: Depression - Endocrine Endocrine: reports: Diabetes type 2, Hypothyroidism - Hematologic/Lymphatic Hematologic/Lymph: Recurrent infections (Urinary tract infection) - All Other Systems All Other Systems: reports: Reviewed and negative Physical Exam - Vital Signs Temperature: 36.4 C Pulse Rate: 66 O2 Saturation: 95 (on 3L via NC) Blood Pressure: 143/63 (left wrist cuff) - Physical Exam General Appearance: positive: No acute distress, Alert, Other (Morbidly obese, appears younger than stated age) Eyes Bilateral: positive: Normal inspection, Other (+corrective lenses) ENT: positive: No signs of dehydration, Other (+upper dentures) Neck: positive: Trachea midline Cardiovascular: positive: Regular rate & rhythm, No murmur, Other (distant heart sounds due to body habitus) Respiratory: positive: No respiratory distress, Breath sounds nml, Other (good air movemet) Abdomen: positive: Non-tender, Soft, Nml bowel sounds, Obese Skin: positive: No symptoms Extremities: positive: Full ROM, No pedal edema Neurologic/Psychiatric: positive: Oriented x3, Mood/affect nml, Other (Engaged and articulate) Palliative Care - POLST Patient has POLST: Yes POLST Status: DNR, Selective Treatment Pain: No pain Tiredness/Fatigue: None Nausea: None Anorexia: None Dyspnea: Moderate (4-6) Feelings of wellbeing/Perceived Quality of Life: Good Sleep: Other (hasnot been able to sleep well after the recent loss of her son on Sunday) Constipation: No Performance Status: Patient exam full to ambulate short distances with in her home with the use of her Rollator. No recent falls. Caregiver/friend prepares meals. Patient is continent of bowel and bladder. Able to self feed. PPS 50 to 60%. - Palliative Care Discussion: The patient's through her life has always been a positive and optimistic person. She sees the glass as half full and not half empty. The recent loss of her fourth child provides her with much grief as she never first saw herself out living the majority of her children. She is even reflective that her remaining daughter commented that she always thought that she would have her siblings once both the patient and her spouse would . Despite her multiple comorbidities and complexity with necrotizing fasciitis in 2019 the patient again continues to have a positive outlook. She relays that "all the things that could be wrong at this age and are not." Her positive outlook is also visible with her preference for butterflies and that is embolization that is demonstrated throughout her home visually. Impression and Recommendations - Palliative Care Impression: This is an 84-year-old female who was seen and evaluated today within her home due to COPD with chronic oxygen supplementation, pulmonary hypertension, debilit y and community assistance. This patient finds That she is having increased nasal dryness and would benefit from humidification to her oxygen concentrator. High as it is a taxing effort for the patient to leave her home setting palliative care will continue to provide support, exploration of goals of care, symptom management and anticipatory guidance moving forward. Recommendations/Counseling Done: 1. Debility. Multifactorial due to patient's complex cardiac history, sedentary lifestyle, and Morbid obesity.Patient was previously a longstanding home health patient due to her necrotizing fasciitis status and requirement of wound VAC. He able to ambulate with assistive device. Has adaptations within the home to provide assistance such as lift chair and bedside commode. Fall precautions. 2.Congestive heart failure. No evidence of volume overload. Continue Lasix 40 mg daily and spironolactone 25 mg daily as well as Coreg 3.125 mg as previously ordered. Continue his low-salt diet and evaluate the need to adjust diuretic therapy in the future based on patient's symptoms. 3. COPD. On chronic oxygen supplementation. Patient denies a past history of being followed by a manager plant. No history of COPD exacerbations per patient report. Continue supplemental oxygen as ordered. As a supplemental oxygen is drying to the patient's naris recommend a wide AR nasal gel to be applied nightly. Contacted [facility] to request humidification to be set up for the patient. 4. Vision loss to left eye. It has been several years since the patient has been seen and evaluated by optometry or ophthalmology. Given the patient's longstanding history of diabetes mellitus question of underlying macular degeneration or diabetic retinopathy cannot be ruled out based on her symptom report. Patient relays that she has not move forward with an appointment due to insurance coverage. We will follow-up with patient after discussing with [facility] if there as any services that the patient can utilize on [facility]. 5. Advanced care planning. Patient has caregiving support within the home. As it is a taxing and considerable effort for the patient to leave her home due to her multiple comorbidities and underlying debility palliative care will continue to follow within the patient's home setting. We will continue to explore goals of care and build rapport moving forward. Supportive listening provided. Patient is requesting influenza vaccine and if supply is available at Palliative care to continue to provide support as it is not feasible for the patient to leave her present setting. Time Spent: Follow-up June 2020 or sooner if new/worsening symptoms. Total time spent 70 minutes with greater than 50% of this spent in counseling and coordination of care With the patient and her caregiver, Vandana; palliative care philosophy; examination of patient;supportive listening; review of symptom management and anticipatory guidance. Disclaimer: The chart note was formulated using voice recognition technology and unfortunately sound alike errors may occur.
== END 2020-05-11 13:31 | disposition home or self-care (01) ==
LOC: PC 13:30
PROVIDERS: ATTEND Nurse Practitioner Family
DX: Z51.5 Encounter for palliative care (principal); R54 Age-related physical debility; I11.0 Hypertensive heart disease with heart failure; I50.30 Unspecified diastolic (congestive) heart failure; J44.9 Chronic obstructive pulmonary disease, unspecified; H54.7 Unspecified visual loss; E11.9 Type 2 diabetes mellitus without complications; I27.20 Pulmonary hypertension, unspecified; E66.01 Morbid (severe) obesity due to excess calories; I25.10 Atherosclerotic heart disease of native coronary artery without angina pectoris; Z79.4 Long term (current) use of insulin; Z99.81 Dependence on supplemental oxygen; Z66 Do not resuscitate
CPT/HCPCS: 99344

== ENCOUNTER 2020-06-17 12:10 | Outpatient (CLI) | payer MEDICARE ==
--- NOTE | 2020-06-17 20:41 | CONSULTATION NOTE ---
Palliative Care Follow Up - Referral Referring Provider: Dr. Tai Callahan Time of Visit: 7712-1114 Referral setting: Home Referral Reason: COPD/DM/Debility - Information Sources Records reviewed: Previous records reviewed History/Review of Systems obtained from: Patient, Caregiver (Vandana) Exam limitations: No limitations - History of Present Illness Update Brief HPI Update: This is a horacio 84-year-old female who is seen in follow-up today within her home due to multiple comorbidities and follow-up due to her COPD, diabetes mellitus and recent grief with her caregiver/friend Vandana present. The patient has a longstanding history of diabetes mellitus for approximately 15 to 20 years. She is insulin-dependent. No reports of hypoglycemic events. In the last month She reports that her blood glucose levels have been above 200 but less than 300. This morning her blood glucose level fasting was 245. She is presently on Levemir 28 units twice daily and Novolin R on a sliding scale. However, the patient is only checking her blood glucose level once daily and is not recording. She will administer her Novolin R for her lunch and dinner based on what her morning fasting blood glucose level was. Educated the patient today on the importance of checking her blood glucose level 3 times daily prior to meals which will tribal judge the insulin requirements that she will need. Her diet has remained the same in the last month. She has not had any weight gain. Her diet consists more of a protein-based versus carbohydrate base. She has meal prep assistance from her friend/caregiver Vandana and bathing aidsuzi Peñaloza. She has been on oxygen therapy via nasal cannula due to COPD. She previously was complaining of dryness to her naris and after her last evaluation humidification was requested for her concentrator which has improved her symptoms. No history of COPD exacerbation. The patient recently lost another child, her son who was in a facility. She now only has 2 remaining children of her 6. She relays that day by day things are getting better but she periodically gets "in a funk." Typically when she gets an ache "funk" she will take a nap and then wake up with a new perspective. These episodes of feeling down and in a funk initially were occurring approximately 2 times per day then 1 time per day now tapping every so often during the week. She is presently maintained on paroxetine 40 mg daily. This is a morbidly obese, well-groomed, lively woman seen in her living room in her lift assist chair. No evidence of acute distress. Past Medical History: Patient has a past medical history of congestive heart failure (diastolic dysfunction), hypertension, hyperlipidemia, coronary artery disease, [place], pulmonary hypertension, COPD on supplemental oxygen, sleep apnea but does not wear a CPAP,Morbid obesity, depression, diabetes mellitus type 2, hypot hyroidism, chronic hearing loss, anxiety, fatigue, necrotizing fasciitis of the right abdominal wall secondary to MRSA 2019. Social History - Living Situation Living arrangement: At home Living Situation: With caregiver(s) (friend/caregiver Vandana and her , Terrence) Support System: The patient has been since 1989 after her of an ID. 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 The patient had 6 children, 3 boys and 3 girls. Presently she only has 2 remaining children, a boy and a girl. She grew up in the [facility] and moved to [facility] in [place]. The patient has Vandana who serves as her primary caregiver and has additional assistance from her , Terrence. She also has a caregiver that helps assist with bathing, Anabela who comes to the home. Vandana's contact number is [phone]. Medications/Allergies - Medications Home Medications: Ambulatory Orders Medication Instructions Recorded Confirmed carvediloL [Carvedilol] 3.125 mg PO DAILY 01/29/16 06/18/20 Levothyroxine [Synthroid] 112 mcg PO QDAC #30 tablet 12/28/17 06/18/20 Spironolactone [Aldactone] 25 mg PO DAILY #30 tablet 12/28/17 06/18/20 lisinopriL [Lisinopril] 5 mg PO DAILY #30 tablet 12/28/17 06/18/20 Levalbuterol [Xopenex] 3 ml INH QID PRN 11/18/18 06/18/20 Ascorbic Acid [Vitamin C] 1,000 mg PO DAILY 12/20/18 06/18/20 Aspirin [Aspirin EC] 81 mg PO DAILY 12/20/18 06/18/20 C,E,Zinc,Copper 11/Ibwmz8w/Lut 1 each PO DAILY 12/20/18 06/18/20 [Ocuvite Adult 50 Plus Softgel] Calcium Carbonate [Calcium] 500 mg PO BID 12/20/18 06/18/20 Cholecalciferol (Vitamin D3) 1,000 unit PO DAILY 12/20/18 06/18/20 [Vitamin D3] Garlic 1,000 mg PO DAILY 12/20/18 06/18/20 Loratadine 10 mg PO DAILY 12/20/18 06/18/20 Multivitamin [Multivitamins] 1 each PO DAILY 12/20/18 06/18/20 Levothyroxine [Synthroid] 75 mcg PO QDAC 04/02/19 06/18/20 Lovastatin 40 mg PO QPM 04/02/19 06/18/20 PARoxetine HCL [Paroxetine HCl] 40 mg PO DAILY 04/02/19 06/18/20 levoFLOXacin [Levaquin] 750 mg PO DAILY #7 tablet 04/04/19 06/18/20 Cranberry 1 cap PO DAILY 05/11/20 06/18/20 Furosemide 40 mg PO DAILY 05/11/20 06/18/20 Levemir 30 units SQ BID 05/11/20 06/18/20 Novalin R 05/11/20 Vitamin B12 1 cap PO DAILY 05/11/20 06/18/20 - Allergies Allergies/Adverse Reactions: Allergies Allergy/AdvReac Type Severity Reaction Status Date / Time codeine Allergy Unknown Verified 06/18/20 09:34 Review of Systems - Constitutional Constitutional: reports: Weight stable. denies: Fever, Weight loss - Eyes Eyes: reports: Vision loss (left eye), Corrective lenses - Ears, Nose & Throat Ears, Nose & Throat: reports: Dentures. denies: Hearing aids - Cardiovascular Cardiovascular: denies: Chest pain, Edema - Respiratory Respiratory: reports: SOB with exertion. denies: Wheezing - Gastrointestinal Gastrointestinal: reports: Good appetite. denies: Abdominal pain, Constipation - Genitourinary Genitourinary: denies: Dysuria - Musculoskeletal Musculoskeletal: reports: Assistive devices - Integumentary Integumentary: denies: Rash - Neurological Neurological: reports: General weakness. denies: Memory problems - Psychiatric Psychiatric: reports: Depression - Endocrine Endocrine: reports: Diabetes type 2, Hypothyroidism - Hematologic/Lymphatic Hematologic/Lymph: Recurrent infections (Urinary tract infection) - All Other Systems All Other Systems: reports: Reviewed and negative Physical Exam - Vital Signs Temperature: 36.3 C Pulse Rate: 73 O2 Saturation: 95 (on 2.5L via NC) Blood Pressure: 160/58 - Physical Exam General Appearance: positive: No acute distress, Alert, Other (Morbidly obese, appears younger than stated age) Eyes Bilateral: positive: Other (+corrective lenses) ENT: positive: No signs of dehydration, Other (+upper dentures) Neck: positive: Trachea midline Cardiovascular: positive: Regular rate & rhythm, No murmur, Other (distant heart sounds due to body habitus) Respiratory: positive: No respiratory distress, Breath sounds nml, Other (on supplemental oxygen via NC) Abdomen: positive: Non-tender, Soft, Nml bowel sounds, Obese Skin: positive: No symptoms Extremities: positive: No pedal edema Neurologic/Psychiatric: positive: Oriented x3, Mood/affect nml Palliative Care - POLST Patient has POLST: Yes POLST Status: DNR, Selective Treatment Pain: No pain Dyspnea: Moderate (4-6) Feelings of wellbeing/Perceived Quality of Life: Good Constipation: No Performance Status: Patient is able to ambulate short distances within her home with the use of her Rollator. No recent falls. Caregiver/friends prepare her meals. Patient is continent of bowel and bladder. Able to self feed. PPS 50 to 60% - Palliative Care Discussion: The patient's blood glucose levels have recently increased to above 200 without change in food preparation or reported weight gain. Possibly due to recent stressors with the loss of her son as well as a long-term diabetes mellitus and would benefit from further dose adjustments of her long-acting Levemir. Educated the patient on the importance of writing down her blood glucose levels to monitor trends more closely and to obtain her blood glucose levels 3 times daily before meals to adequately administer her Novolin R with understanding verbalized. Goal of her blood glucose levels are less than 200. The patient continues to display some evidence of grief that is appropriate after the loss of her son approximately 1.5 months ago. She continues to be a positive individual looking forward to the time when she will be able to spend with her grandchildren and great-grandchildren. She continually puts 1 foot in front of the other. Impression and Recommendations - Palliative Care Impression: This is an 84-year-old female who is seen in follow-up today within her home due to COPD with chronic oxygen supplementation, debility, diabetes mellitus not at goal and underlying grief. She continues to be an optimistic individual and the grief related to loss of her son is noted to be appropriate and that she has community support regarding this loss. Due to her multiple comorbidities and morbid obesity it is difficult for her to leave her home And therefore palliative care will continue to provide support, exploration of goals of care, care coordination, symptom management and anticipatory guidance moving forward. Recommendations/Counseling Done: 1. Diabetes mellitus type 2. Longstanding history. Insulin-dependent. See palliative care discussion for additional details. Presently blood glucose levels are not at goal with desired blood glucose levels less than 200. Increase Levemir to 30 units twice daily if. Continue Novolin R on sliding scale with meals and strongly encouraged checking blood glucose levels prior to meals for accurate administration of Novolin R. Requested that blood glucose levels be recorded to titrate insulin therapy moving forward. No recent hemoglobin A1c on file and will obtain at next visit and adjust accordingly. Reviewed signs and symptoms of hypoglycemia with patient and caregiver. Given the patient's advanced age goal hemoglobin A1c 7 to 8%. Continue to monitor. 2. Hyperlipidemia. Presently on lovastatin. No recent LFTs or lipid panel. Will obtain lab work at next visit and follow with results. Continue lovastatin in the evening given history of ID and hyperlipidemia. 3. Hypothyroidism. Continue levothyroxine as ordered. Obtain TSH and free T4 at next visit and follow with results. 4. Grief. Patient has had recent loss of her son and now has lost 4 of her 6 children that she is now outlived. She demonstrates improved appropriate grief regarding her loss. Denies suicidal ideation. She has emotional support from her children over the phone as well as her caregiver/friend Vandana. Patient continues to be an optimistic individual. Presently on paroxetine 40 mg daily for depression and anxiety and no evidence to change this medication at the present time. Supportive listening provided. Continue to monitor. 5.Influenza vaccine. Patient with rash did influenza vaccine to be administered in her home. Influenza consent and screening form completed. Reviewed benefits and potential side effects such as local redness, soreness or swelling at the injection site with understanding verbalized and patient wishes to proceed with administration of influenza vaccine. Administered vaccine to left deltoid Fluzone High Dose QIV, [employer], Lot Number [id number] exp December 08, 2020. Patient also requested with Zostavax vaccine however, this is not available to be administered within the home in environment through home health services and patient would need to follow up out in the community for administration such as a local pharmacy. Time Spent: Follow-up in 4 to 6 weeks or as needed if new/worsening symptoms. CPT G0008 for flu vaccine administration Total time spent 55 minutes with greater than 50% of this spent in counseling and coordination of care with patient and friend/Caregiver Vandana; education regarding insulin administration and monitoring with dose adjustments to levemir; recommendation for blood glucose monitoring TID before meals; supportive listening; examination of patient; vaccine administration; review of symptom management and anticipatory guidance. Will coordinate with patient's PCP Dr. Callahan re: labwork if any additional testing is requested to be drawn at next visit then stated above. Disclaimer: The chart note was formulated using voice recognition technology and unfortunately sound alike errors may occur.
--- OUTSIDE RECORDS SUMMARY | 2020-06-23 01:21 | EXTERNAL MEDICAL SUMMARY RPT | Continuity of Care Document ---
: Demographics Phone Unavailable Preferred Language Unknown Marital Status Unknown Zoroastrian Affiliation Unknown Race Unknown Ethnic Group Unknown Author Organization [place] Address [address] [phone] Phone Care Team Providers Name Role Phone Tai Callahan Unavailable Unavailable Allergies date description facility NO KNOWN ALLERGIES [facility] Social History date description facility [id number]
== END 2020-06-17 12:11 | disposition home or self-care (01) ==
LOC: PC 12:10
PROVIDERS: ATTEND Nurse Practitioner Family
DX: Z51.5 Encounter for palliative care (principal); E11.65 Type 2 diabetes mellitus with hyperglycemia; E78.5 Hyperlipidemia, unspecified; E03.9 Hypothyroidism, unspecified; F43.21 Adjustment disorder with depressed mood; E66.01 Morbid (severe) obesity due to excess calories; J44.9 Chronic obstructive pulmonary disease, unspecified; I11.0 Hypertensive heart disease with heart failure; I50.30 Unspecified diastolic (congestive) heart failure; Z79.4 Long term (current) use of insulin; Z99.81 Dependence on supplemental oxygen; Z23 Encounter for immunization; Z66 Do not resuscitate
CPT/HCPCS: 99349

== ENCOUNTER 2020-07-08 08:00 | Outpatient (CLI) | payer MEDICARE ==
[2020-07-08 14:07] LABS: ALBUMIN 3.7 g/dL (3.2-5.5); ALBUMIN/GLOBULIN RATIO 1.2 (1.0-2.2); ALKALINE PHOSPHATASE 89 IU/L (42-121); ALT ALANINE AMINOTRANSFERASE 28 IU/L (10-60); AST ASPARTATE AMINOTRANSFERASE 31 IU/L (10-42); BILIRUBIN,TOTAL 0.4 mg/dL (0.2-1.0); BUN - BLOOD UREA NITROGEN 35 mg/dL (6-20); CALCIUM 9.6 mg/dL (8.5-10.3); CARBON DIOXIDE - CO2 27 mmol/L (21-32); CHLORIDE 92 mmol/L (101-111); CHOL/HDL RATIO 3.4 (<4.4); CHOLESTEROL 196 mg/dL; CREATININE 1.4 mg/dL (0.4-1.0); GLUCOSE 251 mg/dL (70-100); HDL CHOLESTEROL 58 mg/dL; LDL CHOLESTEROL,CALCULATED 86 mg/dL; LDL/HDL RATIO 1.5 (<4.4); TOTAL PROTEIN 6.9 g/dL (6.7-8.2); VLDL CHOLESTEROL 52 mg/dL
[2020-07-08 14:14] LABS: T4 (THYROXINE) 10.17 ug/dL (6.09-12.23)
[2020-07-08 14:18] LABS: THYROID STIMULATING HORMONE 0.64 uIU/mL (0.34-5.60)
[2020-07-08 18:36] LABS: HEMOGLOBIN A1c% 7.8 % (4.27-6.07)
== END 2020-07-08 23:59 | disposition home or self-care (01) ==
LOC: LAB.R 08:00
PROVIDERS: ATTEND Nurse Practitioner Family
DX: E11.65 Type 2 diabetes mellitus with hyperglycemia (principal); I25.10 Atherosclerotic heart disease of native coronary artery without angina pectoris; E78.5 Hyperlipidemia, unspecified; E03.9 Hypothyroidism, unspecified; I10 Essential (primary) hypertension
CPT/HCPCS: 80053; 80061; 83036; 83721; 84436; 84443

== ENCOUNTER 2020-07-08 12:00 | Outpatient (CLI) | payer MEDICARE ==
--- NOTE | 2020-07-08 18:48 | CONSULTATION NOTE ---
Palliative Care Follow Up - Referral Referring Provider: Dr. Tai Callahan Time of Visit: 5308-7089 Referral setting: Home Referral Reason: DM type II/HLD/Debility - Information Sources Records reviewed: Previous records reviewed History/Review of Systems obtained from: Patient Exam limitations: No limitations - History of Present Illness Update Brief HPI Update: This is a horacio 84-year-old female who was seen in follow-up today within her home due to multiple comorbidities due to her diabetes mellitus type 2, COPD, and hyperlipidemia. The patient has a longstanding history of diabetes mellitus for approximately 15 to 20 years. She is insulin-dependent. No reports of hypoglycemic events. Since last evaluation she has been recording her blood glucose levels 3 times daily and following appropriate administration of her Novolin R based on her blood glucose level before her meals. On last evaluation her Levemir was increased to 30 units twice daily. Her blood glucose levels in the morning have been as follows:167, 243, 157, 194, 164, 165, 189, 181, 181, 184, 206, 207, 148, 212 Midday/Lunch: 213, 334, 205, 291, 382, 256, 241, 245, 295, 285, 289, 314 Evening/Dinner: 2-4, 242, 204, 254, 259, 247, 222, 256, 286, 296, 276 She denies increased thirst, increased hunger And denies any lows with her blood glucose level. She has a history of hyperlipidemia and is presently on lovastatin 40 mg nightly. She denies any leg cramping due to statin therapy. She has not had general lab work drawn for over 1 year and today lab work will be obtained for monitoring for appropriate therapy. She is in good spirits today with no difficulty reported regarding the sleeping and her overall mood. This is a morbidly obese, well-groomed and lively woman seen in her living room in her lift assist chair. No evidence of acute distress. Past Medical History: Patient has a past medical history of congestive heart failure is diastolic dysfunction (, hypertension, hyperlipidemia, coronary artery disease, [place], pulmonary hypertension, COPD on supplemental oxygen, sleep apnea but does not wear CPAP, morbid obesity, depression, diabetes mellitus type 2, hypothyroidism, chronic hearing loss, anxiety, fatigue, necrotizing fasciitis of the right abdominal wall secondary to MRSA in 2019. Social History - Living Situation Living arrangement: At home Living Situation: With caregiver(s) (friend/caregiver Vandana and her , Terrence) Support System: Patient has been since 1989 after her of an [place]. 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 The patient has 6 children, 3 boys and 3 girls. She presently only has 2 remaining children that are alive, a boy and a girl. The patient has Vandana who serves as her primary caregiver and has additional assistance from Vandana's , Terrence. Vandana's contact number is [phone]. Medications/Allergies - Medications Home Medications: Ambulatory Orders Medication Instructions Recorded Confirmed carvediloL [Carvedilol] 3.125 mg PO DAILY 01/29/16 06/18/20 Levothyroxine [Synthroid] 112 mcg PO QDAC #30 tablet 12/28/17 06/18/20 Spironolactone [Aldactone] 25 mg PO DAILY #30 tablet 12/28/17 06/18/20 lisinopriL [Lisinopril] 5 mg PO DAILY #30 tablet 12/28/17 06/18/20 Levalbuterol [Xopenex] 3 ml INH QID PRN 11/18/18 06/18/20 Ascorbic Acid [Vitamin C] 1,000 mg PO DAILY 12/20/18 06/18/20 Aspirin [Aspirin EC] 81 mg PO DAILY 12/20/18 06/18/20 C,E,Zinc,Copper 11/Mqiic9q/Lut 1 each PO DAILY 12/20/18 06/18/20 [Ocuvite Adult 50 Plus Softgel] Calcium Carbonate [Calcium] 500 mg PO BID 12/20/18 06/18/20 Cholecalciferol (Vitamin D3) 1,000 unit PO DAILY 12/20/18 06/18/20 [Vitamin D3] Garlic 1,000 mg PO DAILY 12/20/18 06/18/20 Loratadine 10 mg PO DAILY 12/20/18 06/18/20 Multivitamin [Multivitamins] 1 each PO DAILY 12/20/18 06/18/20 Levothyroxine [Synthroid] 75 mcg PO QDAC 04/02/19 06/18/20 Lovastatin 40 mg PO QPM 04/02/19 06/18/20 PARoxetine HCL [Paroxetine HCl] 40 mg PO DAILY 04/02/19 06/18/20 Cranberry 1 cap PO DAILY 05/11/20 06/18/20 Furosemide 40 mg PO DAILY 05/11/20 06/18/20 Levemir 32 units SQ BID 05/11/20 06/18/20 Novalin R 05/11/20 Vitamin B12 1 cap PO DAILY 05/11/20 06/18/20 - Allergies Allergies/Adverse Reactions: Allergies Allergy/AdvReac Type Severity Reaction Status Date / Time codeine Allergy Unknown Verified 06/18/20 09:34 Review of Systems - Constitutional Constitutional: reports: Weight stable. denies: Fever, Weight loss - Eyes Eyes: reports: Vision loss (left eye), Corrective lenses - Ears, Nose & Throat Ears, Nose & Throat: denies: Hearing aids - Cardiovascular Cardiovascular: denies: Chest pain, Edema - Respiratory Respiratory: reports: SOB with exertion. denies: Wheezing - Gastrointestinal Gastrointestinal: reports: Good appetite. denies: Abdominal pain, Constipation (bowel movements are not well formed and typically occurs daily up to 3 times a day), Nausea, Vomiting - Genitourinary Genitourinary: denies: Dysuria - Musculoskeletal Musculoskeletal: reports: Assistive devices - Integumentary Integumentary: denies: Rash - Neurological Neurological: reports: General weakness. denies: Memory problems - Psychiatric Psychiatric: reports: Depression - Endocrine Endocrine: reports: Diabetes type 2 (see HPI), Hypothyroidism - Hematologic/Lymphatic Hematologic/Lymph: Recurrent infections (Urinary tract infection) - All Other Systems All Other Systems: reports: Reviewed and negative Physical Exam - Vital Signs Temperature: 36.5 C Pulse Rate: 68 O2 Saturation: 94 (on 2.5L via NC) Blood Pressure: 152/88 (left arm) - Physical Exam General Appearance: positive: No acute distress, Alert, Other (Morbidly obese, appears younger than stated age) Eyes Bilateral: positive: Other (+corrective lenses) ENT: positive: No signs of dehydration Neck: positive: Trachea midline Cardiovascular: positive: Regular rate & rhythm, No murmur, Other (distant heart sounds due to body habitus) Respiratory: positive: No respiratory distress, Breath sounds nml, Other (on supplemental oxygen via NC). negative: Rales Abdomen: positive: Non-tender, Soft, Nml bowel sounds, Obese Skin: positive: No symptoms Extremities: positive: No pedal edema Neurologic/Psychiatric: positive: Oriented x3, Mood/affect nml Palliative Care - POLST Patient has POLST: Yes POLST Status: DNR, Selective Treatment Pain: No pain Sleep: Sleeps well Constipation: No Performance Status: PPS 50-60% - Palliative Care Discussion: Patient has taken her blood glucose levels 3 times daily when previously she was only taking once daily. No reports of hypoglycemia. She has tolerated the increase of her Levemir with no noted adverse effects. Given she is checking her blood glucose levels 3 times daily she is then adequately dosing herself before her meals with Novolin R. She does express some frustration with having to check her blood glucose levels on a routine basis as her fingers are becoming sore but recognizes the need for monitoring for adequate insulin adjustments. The patient did inquire today about COVID-19 vaccine. It is unclear the present time if this is something that she wishes to pursue. Did express in the context that she has caregivers coming into her home and she is homebound her greatest risk for juan COVID-19 would be from her caregivers and thus, with her vaccination would diminish her risk. Results - Lab Results Lab and Imaging Results: 07/08/2020--labs drawn and pending for review Impression and Recommendations - Palliative Care Impression: This is an 84-year-old female who is seen in follow-up today within her home due to COPD with chronic oxygen supplementation, debility, diabetes mellitus, and hyperlipidemia in need of routine lab work due to her multiple comorbidities and medications. At the present time, it is difficult for the patient to leave her home setting due to her chronic morbidities and morbid obesity. Palliative care will continue to provide support, explore goals of care, care coordination, symptom management and anticipatory guidance. Recommendations/Counseling Done: 1. Diabetes mellitus type 2. Longstanding history. Insulin-dependent. Goal blood glucose levels will be less than 200. Reviewed recent blood glucose levels obtained 3 times daily. Increase Levemir to 32 units twice daily. Continue Novolin R on sliding scale with meals and continue to check blood glucose levels prior to meals for accurate administration of Novolin R. Obtained hemoglobin A1c and will follow with results today. Given the patient's advanced age and chronic comorbidities a goal hemoglobin A1c is 7 to 8%. Continue to monitor. 2. Hyperlipidemia. Presently on lovastatin. History of [place] and has diabetes mellitus type 2. Obtain a CMP and lipid panel today. Follow with results. 3. Hypothyroidism. Continue levothyroxine as ordered. Obtain TSH and T4 and follow with results of dose adjustment as needed. 4. Congestive heart failure. No recorded EF noted recently. No evidence of lobar extremity edema and appears to be euvolemic. Presently on spironolactone 25 mg daily and furosemide 40 mg daily. Continue current diuretic regimen as ordered. Time Spent: Total time spent 45 minutes with greater than 50% of this spent in counseling and coordination of care with patient; labs drawn and will follow with results and send copies to PCP; examination of patient; review of COVID-19 vaccine; review of symptom management and anticipatory guidance. Disclaimer: The chart note was formulated using voice recognition technology and unfortunately sound alike errors may occur.
== END 2020-07-08 12:01 | disposition home or self-care (01) ==
LOC: PC 12:00
PROVIDERS: ATTEND Nurse Practitioner Family
DX: Z51.5 Encounter for palliative care (principal); E11.9 Type 2 diabetes mellitus without complications; E78.5 Hyperlipidemia, unspecified; E03.9 Hypothyroidism, unspecified; J44.9 Chronic obstructive pulmonary disease, unspecified; I11.0 Hypertensive heart disease with heart failure; I50.9 Heart failure, unspecified; E66.01 Morbid (severe) obesity due to excess calories; Z79.4 Long term (current) use of insulin; Z99.81 Dependence on supplemental oxygen; Z66 Do not resuscitate
CPT/HCPCS: 99349

== ENCOUNTER 2020-08-19 11:45 | Outpatient (CLI) | payer MEDICARE ==
--- NOTE | 2020-08-19 18:28 | CONSULTATION NOTE ---
Palliative Care Follow Up - Referral Referring Provider: Dr. Tai Callahan Time of Visit: 8588-3516 Referral setting: Home Referral Reason: DM type II/CHF/COPD - Information Sources Records reviewed: Previous records reviewed History/Review of Systems obtained from: Patient Exam limitations: No limitations - History of Present Illness Update Brief HPI Update: A horacio 84-year-old female who is seen in follow-up today within her home due to multiple comorbidities due to her diabetes mellitus type 2, hypertension, CHF and postnasal drip due to seasonal allergies. The patient has a longstanding history of diabetes mellitus for approximately 15 to 20 years. She is insulin-dependent and denies hypoglycemic events. She is no longer checking her blood glucose levels 3 times daily as she finds this causes pain and discomfort to her fingertips. She is typically taking her blood glucose levels first thing in the morning with a range of 125-180 after recent change of her Levemir to 32 units twice daily. She continues on Novolin R with meals based on a sliding scale. Her lowest blood glucose level since last evaluation was 85. She denies any diaphoresis During this reported low blood glucose level. She reports that that day she slept long into the next morning and this caused some anxiety for her as there was some time between her evening meal and her morning meal. She does report some postnasal drip that is presently controlled with the use of her saline nasal spray and loratadine. She does report that she has a history of seasonal allergies. She does express some concern regarding finances related to her medication has several recent changes in coverage due to a change in so security. She is covered under Medicare part D. She has not contacted any services in follow-up at this time for any additional assistance but plans to. No recent falls. Continues to consume a well-balanced diet that is prepared for her by her friends and caregivers. She denies any lower extremity edema. She has a history of congestive heart failure and is on furosemide 4 times a week versus daily. No evidence of volume overload. In early July 2020 the patient was reporting signs and symptoms of acute cystitis and was treated with a course of Macrobid with resolution of her symptoms. This is a morbidly obese, well-groomed and lively woman seen in her living room in her lift assist chair. No evidence of acute distress. Past Medical History: Patient has a past medical history of congestive heart failure is diastolic dysfunction, hypertension, hyperlipidemia, coronary artery disease, DC, pulmonary hypertension, COPD on supplemental oxygen, sleep apnea but does not wear CPAP, morbid obesity, depression, diabetes mellitus type 2, hypothyroidism, chronic hearing loss, anxiety, fatigue, necrotizing fasciitis of the right abdominal wall secondary to MRSA in 2019. Social History - Living Situation Living arrangement: At home Living Situation: With caregiver(s) (friend/caregiver Vandana and her , Terrence) Support System: Patient has been since 1989 after her of an DC. 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 The patient had 6 children, 3 boys and 3 girls. She presently only has 2 remaining children that are alive, a boy and a girl. The patient has Vandana who serves as her primary caregiver and has additional assistance from Vandana's , Terrence. Vandana's contact number is [phone]. Medications/Allergies - Medications Home Medications: Ambulatory Orders Medication Instructions Recorded Confirmed carvediloL [Carvedilol] 3.125 mg PO DAILY 01/29/16 06/18/20 Levothyroxine [Synthroid] 112 mcg PO QDAC #30 tablet 12/28/17 06/18/20 Spironolactone [Aldactone] 25 mg PO DAILY #30 tablet 12/28/17 06/18/20 lisinopriL [Lisinopril] 5 mg PO DAILY #30 tablet 12/28/17 06/18/20 Levalbuterol [Xopenex] 3 ml INH QID PRN 11/18/18 06/18/20 Ascorbic Acid [Vitamin C] 1,000 mg PO DAILY 12/20/18 06/18/20 Aspirin [Aspirin EC] 81 mg PO DAILY 12/20/18 06/18/20 C,E,Zinc,Copper 11/Woonq0z/Lut 1 each PO DAILY 12/20/18 06/18/20 [Ocuvite Adult 50 Plus Softgel] Calcium Carbonate [Calcium] 500 mg PO BID 12/20/18 06/18/20 Cholecalciferol (Vitamin D3) 1,000 unit PO DAILY 12/20/18 06/18/20 [Vitamin D3] Garlic 1,000 mg PO DAILY 12/20/18 06/18/20 Loratadine 10 mg PO DAILY 12/20/18 06/18/20 Multivitamin [Multivitamins] 1 each PO DAILY 12/20/18 06/18/20 Levothyroxine [Synthroid] 75 mcg PO QDAC 04/02/19 06/18/20 Lovastatin 40 mg PO QPM 04/02/19 06/18/20 PARoxetine HCL [Paroxetine HCl] 40 mg PO DAILY 04/02/19 06/18/20 Cranberry 1 cap PO DAILY 05/11/20 06/18/20 Furosemide 40 mg PO .SUNMONWEDFRI 05/11/20 06/18/20 Levemir 32 units SQ BID 05/11/20 06/18/20 Novalin R 05/11/20 Vitamin B12 1 cap PO DAILY 05/11/20 06/18/20 - Allergies Allergies/Adverse Reactions: Allergies Allergy/AdvReac Type Severity Reaction Status Date / Time codeine Allergy Unknown Verified 08/23/20 06:50 Review of Systems - Constitutional Constitutional: reports: Weight stable. denies: Fever, Chills, Poor appetite - Eyes Eyes: reports: Vision loss (left eye), Corrective lenses - Ears, Nose & Throat Ears, Nose & Throat: reports: Dentures, Other (reports to seasonal allergies, presently controlled). denies: Hearing loss - Cardiovascular Cardiovascular: reports: Decr. exercise tolerance. denies: Chest pain, Edema - Respiratory Respiratory: reports: SOB with exertion. denies: Wheezing - Gastrointestinal Gastrointestinal: reports: Good appetite. denies: Constipation (typically occurs daily up to 3 times a day), Vomiting - Genitourinary Genitourinary: denies: Dysuria, Hematuria - Musculoskeletal Musculoskeletal: reports: Joint pain, Assistive devices (rollator) - Integumentary Integumentary: denies: Rash - Neurological Neurological: reports: General weakness. denies: Memory problems - Psychiatric Psychiatric: reports: Depression - Endocrine Endocrine: reports: Diabetes type 2 (see HPI), Hypothyroidism - Hematologic/Lymphatic Hematologic/Lymph: reports: Recurrent infections (Urinary tract infection) - All Other Systems All Other Systems: reports: Reviewed and negative Physical Exam - Vital Signs Temperature: 36.3 C Pulse Rate: 69 O2 Saturation: 96 (on 2L via NC) Blood Pressure: 146/64 (right wrist) - Physical Exam General Appearance: positive: No acute distress, Alert, Other (morbidily obese and appears younger than stated age) Eyes Bilateral: positive: Normal inspection, Other (+corrective lenses) ENT: positive: No signs of dehydration Neck: positive: No JVD, Trachea midline Cardiovascular: positive: Regular rate & rhythm, Other (distant heart sounds due to body habitus) Respiratory: positive: No respiratory distress, Breath sounds nml, Other (on supplemental oxygen via NC). negative: Rales Abdomen: positive: Non-tender, Soft, Nml bowel sounds, Obese Skin: positive: No symptoms Extremities: positive: Full ROM, No pedal edema Neurologic/Psychiatric: positive: Oriented x3, Mood/affect nml Palliative Care - POLST Patient has POLST: Yes POLST Status: DNR, Selective Treatment Pain: No pain Performance Status: PPS 50-60% - Palliative Care Discussion: The patient is reflective today regarding where she is now. She never thought that she would be this age and losing 4 of her 6 children including the loss of her spouse. She has been a caregiver for many people over the years including her parents and her spouse. She still struggles with the most recent loss of her son, Brando in April 2020. She relays that when you look at your face in the mirror at 49 you will see you will you will be. She relays that when she was 49 she saw a laugh lines and that is how she wishes to continue to proceed with her life finding enjoyment and positivity. She is quite anxious to be able to leave her home as it has been 1 year since she has been out of the house. She has visitors that come for door visits but this is talking across the room with someone in the doorway and it is not conducive for full enjoyment. She find that she has memorized all the cheng within her house and and is quite ready to have the COVID-19 vaccine when it is available to her. Results - Lab Results Lab results reviewed: Yes Lab and Imaging Results: 07/08/2020 Hemoglobin A1c 7.8%, TSH 0.64, cholesterol 196, HDL 58, LDL 86, sodium 132, potassium 4.5, BUN 35, creatinine 1.4, GFR 36, alk phos 89, AST 31, ALT 28, Impression and Recommendations - Palliative Care Impression: This is an 84-year-old female with a history of diabetes mellitus, congestive heart failure presently euvolemic, history of seasonal allergies and hypertension who is homebound. She has some concerns regarding COVID-19 vaccination as it is extremely difficult and taxing effort for her to leave her home environment. Palliative care to continue to provide support, care coordination, symptom management and anticipatory guidance. Recommendations/Counseling Done: 1. Diabetes Mellitus Type II. Longstanding history. Insulin-dependent. Goal blood glucose levels to be less than 200. Fasting blood glucose levels have been below 200. Continue Levemir 32 units twice daily. Continue Novolin R on a sliding scale with meals. Hemoglobin A1c 7.8% on 07/08/2020. Given the selena ent's advanced age and chronic comorbidities a goal hemoglobin A1c is 7 to 8%. Continue to monitor. Continue to encourage the patient to provide routine blood glucose level checks. 2. Acute cystitis. Resolved. As patient reports that she is prone to urinary tract infections and typically will have increased fatigue and confusion a specimen cup and none scab were left in the home for the next time the patient has urinary tract symptoms she has been made aware to contact palliative care during working hours and a prescription for the lab will be sent to the lab in [place] For evaluation. Reviewed how to collect a urinary specimen with the patient. 3. Congestive heart failure. No recorded ejection fraction noted. Appears to be euvolemic with no lower extremity edema. Continue spironolactone 25 mg daily. Patient provided correction that she takes furosemide 40 mg on Sunday, Sunday, Sunday, and Sunday. As she appears to be euvolemic we will continue on this regimen unless she has signs and symptoms that this needs to be addressed further. 4. COPD on chronic oxygen supplementation. No history of COPD exacerbations per the patient's report. Continues on oxygen as ordered with humidification. 5. HTN with history of DC. No cardiac awareness. Continue spironolactone, lisinopril, furosemide and carvedilol as prescribed. Continue ASA 81mg daily for cardiac prophylaxis. Continue to monitor BP trends and adjust antihypertensive medications as needed. 6. Seasonal allergies with PND. Presently controlled. Discussed limiting exposures when returning inside from outdoors such as use of saline nasal spray to reduce pollens adhering to nasal hairs and washing her face. 7. Covid vaccination. The patient is homebound and is unable to leave her home at the present time. Discussed with the patient that her risk is minimal as her interactions are just with her caregivers. Would recommend that the individuals that are caring for her be vaccinated for COVID-19 to reduce her risk. Otherwise, as the patient is homebound her risk is minimal. Patient's preference would be for her to vaccinated within the home when that is available and not in the community as it is extremely taxing for her to leave her home setting. F/u October 2020 or sooner if concerns. Total time spent 60 minutes with greater than 50% of this spent in counseling and coordination of care with the patient; examination of patient; review of medications; review of symptom management and anticipatory guidance. Disclaimer: The chart note was formulated using voice recognition technology and unfortunately sound alike errors may occur.
== END 2020-08-19 11:46 | disposition home or self-care (01) ==
LOC: PC 11:45
PROVIDERS: ATTEND Nurse Practitioner Family
DX: Z51.5 Encounter for palliative care (principal); E11.9 Type 2 diabetes mellitus without complications; I11.0 Hypertensive heart disease with heart failure; I50.30 Unspecified diastolic (congestive) heart failure; J44.9 Chronic obstructive pulmonary disease, unspecified; E66.01 Morbid (severe) obesity due to excess calories; Z99.81 Dependence on supplemental oxygen; Z79.4 Long term (current) use of insulin; Z66 Do not resuscitate
CPT/HCPCS: 99350

== ENCOUNTER 2020-10-13 11:10 | Outpatient (CLI) | payer MEDICARE ==
--- NOTE | 2020-10-13 16:32 | CONSULTATION NOTE ---
Palliative Care Follow Up - Referral Referring Provider: Dr. Tai Callahan Time of Visit: 2630-8235 Referral setting: Home Referral Reason: Stubbed toe/Medication concerns/DM type II - Information Sources Records reviewed: Previous records reviewed History/Review of Systems obtained from: Patient, Caregiver (Vandana) Exam limitations: No limitations - History of Present Illness Update Brief HPI Update: This is an 84-year-old female who is seen in follow-up today within her home due to multiple comorbidities including diabetes mellitus type 2, obesity, hypertension and postnasal drip due to seasonal allergies. The patient is a longstanding history of diabetes mellitus for approximately 15 to 20 years. She is insulin-dependent and denies hypoglycemic events. She typically checks her blood glucose level first thing in the morning and has noted recently that her levels have been in the low 200s which is usually typical for her. There has been no change in her food. This is in light of her recently stopping her toe on her left foot. She continues on Novolin R with meals based on a sliding scale and uses Levemir 32 units twice daily. Her last hemoglobin A1c was June 2020 was 7.8%. Her friend, who is a retired nurse provides foot care and nail trimming within her home. It is extremely difficult for the patient to leave her home setting due to her obesity and chronic comorbidities and therefore, she has not established with a new primary care provider. She has concerns about being able to obtain her medications and this [facility] has provided a supply of her insulin most pacifically so she does not run out. The patient does report some postnasal drip due to seasonal allergies that is p resently controlled with regular use of saline nasal spray which she has in the living room and by her bedside as well as AllerClear [id number]. She has not been sitting outside on the porch status has not been warm enough. She is sensitive to seasonal changes. She reports to stubbing her toe about a week ago which she was unaware of the event. It is the second toe on her left foot that was initially tender. Her caregiver reports that she has been applying topical antibiotic ointment to the site and the discoloration underneath her toenail has improved. There has been no redness, no swelling, no sensitivity to generalized touch. The patient's sensation to her lower feet remain intact. She was not wearing shoes at the time and her caregiver, Vandana is encouraging her to use close toed shoes when ambulating the short distances within her house. This is a morbidly obese, well-groomed woman seen in her living room in her lift assist chair. Articulate with no evidence of acute distress. She has received her Covid19 vaccine Social History - Living Situation Living arrangement: At home Living Situation: With caregiver(s) (friend/caregiver Vandana and her , Terrence) Medications/Allergies - Medications Home Medications: Ambulatory Orders Medication Instructions Recorded Confirmed carvediloL [Carvedilol] 3.125 mg PO DAILY 01/29/16 06/18/20 Levothyroxine [Synthroid] 112 mcg PO QDAC #30 tablet 12/28/17 06/18/20 Spironolactone [Aldactone] 25 mg PO DAILY #30 tablet 12/28/17 06/18/20 lisinopriL [Lisinopril] 5 mg PO DAILY #30 tablet 12/28/17 06/18/20 Levalbuterol [Xopenex] 3 ml INH QID PRN 11/18/18 06/18/20 Ascorbic Acid [Vitamin C] 1,000 mg PO DAILY 12/20/18 06/18/20 Aspirin [Aspirin EC] 81 mg PO DAILY 12/20/18 06/18/20 C,E,Zinc,Copper 11/Tjquc4g/Lut 1 each PO DAILY 12/20/18 06/18/20 [Ocuvite Adult 50 Plus Softgel] Calcium Carbonate [Calcium] 500 mg PO BID 12/20/18 06/18/20 Cholecalciferol (Vitamin D3) 1,000 unit PO DAILY 12/20/18 06/18/20 [Vitamin D3] Garlic 1,000 mg PO DAILY 12/20/18 06/18/20 Loratadine 10 mg PO DAILY 12/20/18 06/18/20 Multivitamin [Multivitamins] 1 each PO DAILY 12/20/18 06/18/20 Levothyroxine [Synthroid] 75 mcg PO QDAC 04/02/19 06/18/20 Lovastatin 40 mg PO QPM 04/02/19 06/18/20 PARoxetine HCL [Paroxetine HCl] 40 mg PO DAILY 04/02/19 06/18/20 Cranberry 1 cap PO DAILY 05/11/20 06/18/20 Furosemide 40 mg PO .SUNMONWEDFRI 05/11/20 06/18/20 Levemir 32 units SQ BID 05/11/20 06/18/20 Novalin R 05/11/20 Vitamin B12 1 cap PO DAILY 05/11/20 06/18/20 - Allergies Allergies/Adverse Reactions: Allergies Allergy/AdvReac Type Severity Reaction Status Date / Time codeine Allergy Unknown Verified 10/13/20 16:32 Review of Systems - Constitutional Constitutional: reports: Weight stable. denies: Fever, Chills, Poor appetite - Eyes Eyes: reports: Corrective lenses - Ears, Nose & Throat Ears, Nose & Throat: reports: Dentures, Other (reports to seasonal allergies, presently controlled, see HPI). denies: Hearing loss - Cardiovascular Cardiovascular: reports: Decr. exercise tolerance. denies: Chest pain, Edema - Respiratory Respiratory: reports: SOB with exertion. denies: Wheezing - Gastrointestinal Gastrointestinal: reports: Good appetite. denies: Constipation (typically occurs daily that is soft and no reported straining), Vomiting - Genitourinary Genitourinary: denies: Dysuria - Musculoskeletal Musculoskeletal: reports: Assistive devices (rollator). denies: Joint pain - Integumentary Integumentary: reports: Nail changes (see HPI) - Neurological Neurological: reports: General weakness. denies: Memory problems - Psychiatric Psychiatric: reports: Depression - Endocrine Endocrine: reports: Diabetes type 2 (see HPI), Hypothyroidism - Hematologic/Lymphatic Hematologic/Lymph: reports: Recurrent infections (Urinary tract infection) - All Other Systems All Other Systems: reports: Reviewed and negative Physical Exam - Vital Signs Temperature: 36.5 C Pulse Rate: 70 O2 Saturation: 96 (on 3L via NC) Blood Pressure: 132/60 (right arm) - Physical Exam General Appearance: positive: No acute distress, Alert, Other (morbidily obese and appears younger than stated age) Eyes Bilateral: positive: Other (+corrective lenses) ENT: positive: No signs of dehydration Neck: positive: No JVD, Trachea midline Cardiovascular: positive: Regular rate & rhythm, Other (distant heart sounds due to body habitus) Respiratory: positive: No respiratory distress, Breath sounds nml, Other (on pimentel pplemental oxygen via NC). negative: Wheezes Abdomen: positive: Non-tender, Soft, Nml bowel sounds, Obese Skin: positive: Other (Left 2nd toenail with subungual hematoma more prominent at proximal nail bed with nail remaining attached without discharge, erythema, swelling or tenderness) Extremities: positive: Full ROM, No pedal edema Neurologic/Psychiatric: positive: Oriented x3, Mood/affect nml Palliative Care - POLST Patient has POLST: Yes POLST Status: DNR, Selective Treatment Pain: No pain Feelings of wellbeing/Perceived Quality of Life: Good Sleep: Sleeps well Constipation: No - Palliative Care Discussion: The patient is expressing some concern regarding her left second toenail and reassurance provided that it is a subinguinal hematoma Jay and it will take some time for this to grow out approximately 6 months at the earliest and to monitor for signs and symptoms of infection this provided some relief to the patient. Strongly encouraged that she needs to wear foot wear at all times when ambulating in her home most pacifically due to her history of diabetes mellitus and increased risk of peripheral neuropathy to avoid risk of infection with understanding verbalized. She continues to have routine nail care provided by her friend who is a retired RN. The patient due to her morbid obesity and multiple chronic comorbidities finds an extremely taxing and difficult effort for her to leave her home environment and therefore, has not established with a new primary care provider. Discussed with the patient the role of palliative care as a healthcare management consultant but unfortunately, palliative care does not have one call services and therefore she will need to establish with a PCP. Will discussed with [facility] office about potential for telemedicine visit until or when the patient may be able to leave her home setting. Impression and Recommendations - Palliative Care Impression: This is an 84-year-old female with a history of diabetes mellitus type 2, congestive heart failure presently euvolemic, history of seasonal allergies and hypertension who is homebound. She has developed a subungual hematoma to her left 2nd toe with no evidence of infection. Palliative care to continue to provide support, care coordination, symptom management and anticipatory guidance. Recommendations/Counseling Done: 1. Left 2nd subungual hematoma to toenail. No evidence of infection. Given the patient has underlying type II DM strongly emphasized the need for wearing shoes at all times during ambulation. Discussed s/s of infection with patient and caregiver with understanding verbalized. Advised to contact palliative care if s/s of infection or if nail falls off. Advised may take minimal 6 months for hematoma to grow up. Supportive listening provided. 2. Diabetes Mellitus Type II. Longstanding history. Insulin dependent. Goal blood glucose levels less than 200. Advised to call if blood glucose levels is above 250mg/dl then will need to adjust insulin. Continue Levemir 32units BID. Advised patient if difficulty obtaining insulin from pharmacy to contact palliative care. Continue Novolin R on a sliding scale with meals. hemoglobin A1C 7.8% on 07/08/2020. Given the patient's advanced age and chronic comorbidities a goal Hemoglobin A1C is 7 to 8%. Continue to monitor. 3. COPD on chronic oxygen supplementation. No history of COPD exacerbations per the patient's report. 4. Seasonal allergies with PND. Controlled. Continue use of OTC saline nasal spray. 5. Advanced care planning. Patient needs to establish with new PCP and was able to speak to Dr. Callahan on phone that he will have the patient on his panel as long a palliative care is following along at this time. Patient is homebound due to her obesity and chronic comorbidities and it is taxing for her to leave her home and therefore requires palliative care for support. Total time spent 50 minutes with greater than 50% of this spent in counseling and coordination of care with patient and caregiver, establishment with PCP, review of pain and symptom management and anticipatory guidance. Disclaimer: The chart note was formulated using voice recognition technology and unfortunately sound alike errors may occur.
== END 2020-10-13 11:11 | disposition home or self-care (01) ==
LOC: PC 11:10
PROVIDERS: ATTEND Nurse Practitioner Family
DX: Z51.5 Encounter for palliative care (principal); S90.222A Contusion of left lesser toe(s) with damage to nail, initial encounter; W22.8XXA Striking against or struck by other objects, initial encounter; E11.9 Type 2 diabetes mellitus without complications; J44.9 Chronic obstructive pulmonary disease, unspecified; J30.2 Other seasonal allergic rhinitis; E66.01 Morbid (severe) obesity due to excess calories; Z79.4 Long term (current) use of insulin; Z99.81 Dependence on supplemental oxygen; Z66 Do not resuscitate
CPT/HCPCS: 99349

== ENCOUNTER 2020-12-23 12:10 | Outpatient (CLI) | payer MEDICARE ==
--- NOTE | 2020-12-23 15:19 | CONSULTATION NOTE ---
Palliative Care Follow Up - Referral Referring Provider: Dr. Tai Callahan Time of Visit: 9114-9262 Referral setting: Home Referral Reason: COPD/Diabetes Mellitus type II/Neuropathy - Information Sources Records reviewed: Previous records reviewed History/Review of Systems obtained from: Patient, Caregiver (Vandana) Exam limitations: No limitations - History of Present Illness Update Brief HPI Update: This is an 85-year-old female who was seen in follow-up today within her home due to multiple comorbidities including diabetes mellitus type 2, obesity, hypertension, COPD with supplemental oxygen in place. The patient has a longstanding history of diabetes mellitus for approximately 15 to 20 years. She is insulin-dependent and denies hypoglycemic events. She typically checks her blood glucose level first thing in the morning and reports that her range has been 150 to 212. She continues on Novolin R with meals based on a sliding scale and uses Levemir 32 units twice daily. Her last hemoglobin C A1c in June 2020 was 7.8%. Her friend, who is a retired nurse provides foot care and nail trimming within the home. The patient today is reporting feeling like there is a sock underneath her feet from the ball of her foot down to her toes. She denies a loss of sensation. She reports that this is when she does not. She reports this has been ongoing for many years and did not require an association between this and her underlying diabetes mellitus and potential neuropathy. The patient has a history of hypertension and is presently on spironolactone, lisinopril, Coreg, and furosemide. She is requesting refills of her low-dose statin, lisinopril, and Coreg today. She stubbed her toe in October 2020 the second toe on her left foot with the nailbed continuing to be discolored. She denies any tenderness, redness or swelling. She since that incident of stubbing her toe is now wearing closed toed shoes when ambulating within the home. She has a longstanding history of COPD and is on supplemental oxygen 3 L per nasal cannula. She does have humidification. Rich is requesting a recertif ication that is required every 5 years. She also has a history of pulmonary hypertension due to COPD. She has been on oxygen therapy for approximately 3 years. She denies any history of COPD exacerbation. She continues to report nasal dryness that is worse in the evenings but she is able to maintain her symptoms with [place] nasal gel as well as saline nasal spray for moisturization. The patient is morbidly obese, well-groomed sitting in her lift assist chair in the living room. She is extremely articulate with no evidence of acute distress. Past Medical History: Patient has a past medical history of congestive heart failure is diastolic dysfunction, hypertension, hyperlipidemia, coronary artery disease, CO, pulmonary hypertension, COPD on supplemental oxygen, sleep apnea but does not wear CPAP, morbid obesity, depression, diabetes mellitus type 2, hypothyroidism, chronic hearing loss, anxiety, fatigue, necrotizing fasciitis of the right abdominal wall secondary to MRSA in 2019. +COVID 19 vaccine. Social History - Living Situation Living arrangement: At home Living Situation: With caregiver(s) (friend/caregiver Vandana and her , Terrence) Support System: Patient has been since 1989 after her of an CO. 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 The patient had 6 children, 3 boys and 3 girls. She presently only has 2 remaining children that are alive, a boy and a girl. The patient has Vandana who serves as her primary caregiver and has additional assistance from Vandana's , Terrence. Vandana's contact number is [phone]. The patient plans on taking in a 16 year old boy whom she has known since he was 1 years of age to provide him support and guidance. Medications/Allergies - Medications Home Medications: Ambulatory Orders Medication Instructions Recorded Confirmed carvediloL [Carvedilol] 3.125 mg PO DAILY 01/29/16 06/18/20 Levothyroxine [Synthroid] 112 mcg PO QDAC #30 tablet 12/28/17 06/18/20 Spironolactone [Aldactone] 25 mg PO DAILY #30 tablet 12/28/17 06/18/20 lisinopriL [Lisinopril] 5 mg PO DAILY #30 tablet 12/28/17 06/18/20 Levalbuterol [Xopenex] 3 ml INH QID PRN 11/18/18 06/18/20 Ascorbic Acid [Vitamin C] 1,000 mg PO DAILY 12/20/18 06/18/20 Aspirin [Aspirin EC] 81 mg PO DAILY 12/20/18 06/18/20 C,E,Zinc,Copper 11/Czbmg3s/Lut 1 each PO DAILY 12/20/18 06/18/20 [Ocuvite Adult 50 Plus Softgel] Calcium Carbonate [Calcium] 500 mg PO BID 12/20/18 06/18/20 Cholecalciferol (Vitamin D3) 1,000 unit PO DAILY 12/20/18 06/18/20 [Vitamin D3] Garlic 1,000 mg PO DAILY 12/20/18 06/18/20 Loratadine 10 mg PO DAILY 12/20/18 06/18/20 Multivitamin [Multivitamins] 1 each PO DAILY 12/20/18 06/18/20 Levothyroxine [Synthroid] 75 mcg PO QDAC 04/02/19 06/18/20 Lovastatin 40 mg PO QPM 04/02/19 06/18/20 PARoxetine HCL [Paroxetine HCl] 40 mg PO DAILY 04/02/19 06/18/20 Cranberry 1 cap PO DAILY 05/11/20 06/18/20 Furosemide 40 mg PO .SUNMONWEDFRI 05/11/20 06/18/20 Levemir 32 units SQ BID 05/11/20 06/18/20 Novalin R 05/11/20 Vitamin B12 1 cap PO DAILY 05/11/20 06/18/20 Gabapentin [Neurontin] 300 mg PO QPM 12/23/20 12/23/20 - Allergies Allergies/Adverse Reactions: Allergies Allergy/AdvReac Type Severity Reaction Status Date / Time codeine Allergy Unknown Verified 10/13/20 16:32 Review of Systems - Constitutional Constitutional: reports: Weight stable (perceived by patient based on clothes fitting). denies: Fever, Chills, Poor appetite - Eyes Eyes: reports: Corrective lenses - Ears, Nose & Throat Ears, Nose & Throat: reports: Dentures. denies: Hearing loss - Cardiovascular Cardiovascular: reports: Decr. exercise tolerance. denies: Chest pain, Edema - Respiratory Respiratory: reports: SOB with exertion, Other (on supplemental oxygen). denies: Cough, Wheezing - Gastrointestinal Gastrointestinal: reports: Good appetite. denies: Constipation (daily bowel movement reported without straining), Vomiting - Genitourinary Genitourinary: denies: Dysuria - Musculoskeletal Musculoskeletal: reports: Assistive devices (rollator). denies: Joint pain, Other (no falls reported) - Integumentary Integumentary: reports: Nail changes (see HPI). denies: Rash - Neurological Neurological: reports: General weakness, Other (neuropathy to feet). denies: Memory problems - Psychiatric Psychiatric: reports: Depression - Endocrine Endocrine: reports: Diabetes type 2 (see HPI), Hypothyroidism - Hematologic/Lymphatic Hematologic/Lymph: reports: Recurrent infections (Urinary tract infection) - All Other Systems All Other Systems: reports: Reviewed and negative Physical Exam - Vital Signs Temperature: 36.3 C Pulse Rate: 76 O2 Saturation: 94 (on 3L via NC) Blood Pressure: 142/80 (right arm) - Physical Exam General Appearance: positive: No acute distress, Alert, Other (morbidily obese and appears younger than stated age) Eyes Bilateral: positive: Other (+corrective lenses) ENT: positive: No signs of dehydration Neck: positive: No JVD, Trachea midline Cardiovascular: positive: Regular rate & rhythm, Other (distant heart sounds due to body habitus) Respiratory: positive: No respiratory distress, Breath sounds nml, Other (on supplemental oxygen via NC). negative: Rales (RLL) Abdomen: positive: Non-tender, Soft, Nml bowel sounds, Obese Skin: positive: Other (Left 2nd toenail with subungual hematoma without discharge, erythema, swelling or tenderness to palpation--remains stable.) Extremities: positive: Full ROM, No pedal edema Neurologic/Psychiatric: positive: Oriented x3, Mood/affect nml, Other (Monofilament intact to b/l feet) Palliative Care - POLST Patient has POLST: Yes POLST Status: DNR, Comfort Measures Pain: No pain Feelings of wellbeing/Perceived Quality of Life: Good Sleep: Variable sleep pattern Constipation: No - Palliative Care Discussion: The patient has always been someone that has attracted people that required care and assistance. She reports that she only had 1 year of "being carefree" between being a caregiver for her before becoming a caregiver for her son-in-law. She is reminiscent regarding her losses most specifically of 4 of her 6 children. She does have 2 of her children sports shifts visible in the living room and plans to add the other to that have also subsequently . She continues to be an optimistic individual as well as giving. She is grateful for the support that she has received from her caregiver for Vandana and her spouse Terrence. She is looking forward to imparting her knowledge and care to the 16-year-old coming into her home with her he will be "raised by a committee." The patient has displayed signs and symptoms of neuropathy due to underlying diabetes and would benefit from introduction of gabapentin. Discussed initial trial in the evenings at 300 mg nightly and reviewed signed to fax and purpose was understanding verbalized. May expect moving forward may need to titrate upwards to 3 times daily daily dosing but will see how the patient tolerates this. Impression and Recommendations - Palliative Care Impression: This is an 85-year-old female with a history of diabetes mellitus type 2, hypertension, COPD with supplemental oxygen use and neuropathy who is homebound. She would benefit from introduction of gabapentin for management of her neuropathy symptoms to her bilateral feet. Palliative care to continue to provide support, care coordination, symptom management and anticipatory guidance. Recommendations/Counseling Done: 1. Diabetic neuropathy to bilateral feet. Introduction of gabapentin 300 mg at bedtime with Rx sent to [facility] pharmacy per patient's request. Monofilament intact to bilateral feet. Strongly encourage the use of shoes during few lesions to prevent an unknown injury and potential subsequent adverse event with understanding verbalized. 2. COPD on chronic oxygen supplementation. No history of COPD exacerbations per the patient's report. She continues on supplemental oxygen at 3 L via nasal cannula. Will complete recertification as requested by Rich for continuation of the patient's supplemental oxygen. 3. Diabetes mellitus type 2. Longstanding history. Insulin-dependent. Blood glucose levels less than 250. Advised to call if blood glucose levels are above 250 mg/dL as would then need to adjust insulin. Continue Levemir 32 units twice daily. Continue Novolin R on a sliding scale with meals. Last hemoglobin A1c 7.8% on 07/08/2020. Given the patient's advanced age and chronic comorbidities a gradual a hemoglobin A1c goal is 7 to 8%. Continue to monitor. 4. Left secondtoe subinguinal hematoma to toenail. No evidence of infection. Continue to encourage wearing shoes during ambulation. Again, reeducated the patient that I will take approximately up to 6 months for the hematoma to grow out. No signs and symptoms of infection. Continue to monitor. Total time spent 40 minutes with greater than 50% of the spent in counseling and coordination of care with the patient and caregiver, Vandana; review of neuropathy and pathophysiology; review of pain and symptom management; prescription refills; and anticipatory guidance. Disclaimer: The chart note was formulated using voice recognition technology and unfortunately sound alike errors may occur.
== END 2020-12-23 12:11 | disposition home or self-care (01) ==
LOC: PC 12:10
PROVIDERS: ATTEND Nurse Practitioner Family
DX: Z51.5 Encounter for palliative care (principal); E11.42 Type 2 diabetes mellitus with diabetic polyneuropathy; J44.9 Chronic obstructive pulmonary disease, unspecified; S90.222D Contusion of left lesser toe(s) with damage to nail, subsequent encounter; Z99.81 Dependence on supplemental oxygen; Z79.4 Long term (current) use of insulin; Z66 Do not resuscitate
CPT/HCPCS: 99349

== ENCOUNTER 2021-01-12 07:00 | Outpatient (CLI) | payer MEDICARE ==
[2021-01-12 20:03] LABS: BILIRUBIN,URINE NEGATIVE (NEGATIVE); GLUCOSE, URINE (UA) NEGATIVE (NEGATIVE); KETONES,URINE (UA) NEGATIVE (NEGATIVE); LEUKOCYTE ESTERASE, URINE SMALL (NEGATIVE); NITRITE,URINE POSITIVE (NEGATIVE); OCCULT BLOOD,URINE NEGATIVE (NEGATIVE); PROTEIN,URINE NEGATIVE (NEGATIVE); UROBILINOGEN,URINE 0.2 (NORMAL) E.U./dL (NORMAL)
[2021-01-12 20:09] LABS: CLARITY,URINE HAZY (CLEAR)
[2021-01-12 20:25] LABS: BACTERIA,URINE Many /HPF (None Seen); RBC,URINE None Seen /HPF (0-5); SQUAMOUS EPITHELIAL CELL,UR FEW Squamous (<= Few)
== END 2021-01-12 23:59 | disposition home or self-care (01) ==
LOC: LAB.R 07:00
PROVIDERS: ATTEND Nurse Practitioner Family
DX: R30.0 Dysuria (principal)
CPT/HCPCS: 81001; 81003; 87086; 87181

== ENCOUNTER 2021-01-19 11:25 | Outpatient (CLI) | payer MEDICARE ==
--- NOTE | 2021-01-19 12:04 | PROVIDER PROGRESS NOTE ---
HPI/Interval History - HPI/Interval History This is an 85-year-old female who is seen and evaluated for follow-up today due to recent urinary tract infection and neuropathy to bilateral lower extremities in the setting of diabetes mellitus type 2, obesity, and hypertension. The patient had contacted the palliative care office on 01/11 reporting signs and symptoms of a urinary tract infection. She was reporting a decrease in urinary frequency as well as some word slurring. This is typically indicative of a urinary tract infection for her. She denied any abdominal discomfort, dysuria or flank pain. The patient provided a urinary specimen that demonstrated E. coli greater than 100,000 CFU per mL with full sensitivity panel to antibiotic therapy. The patient has now completed a 5-day Macrobid course. She reports that her her "slurred words" have resolved and she is no longer fatigued. Typically, when she is on antibiotic therapy she reports increased fatigue. She denies abdominal pain, diarrhea, dysuria, or flank pain. She reports that her appetite is starting to improve. She knows "but I have to eat." Her blood glucose levels have been 1 35-1 60 when obtained. She was started on gabapentin 300 mg nightly on last evaluation however, after taking for several days she felt "wobbly" when ambulating and felt that she might have a fall if she did not have her Rollator. Therefore, she discontinued taking the gabapentin without initially talking to this COMPANY SECRETARY. She felt that her neuropathy did improve with the gabapentin and therefore a dose reduction was initiated and she started gabapentin 100 mg nightly last week. Since initiating gabapentin 100 mg nightly she reports that it has "helped a little." However, she still has a sock sensation to her bilateral feet with neuropathy. She would like to trial a higher dose of gabapentin. Review of Systems - Constitutional Constitutional: reports: Fatigue, Other (appetite improving, see HPI). denies: Fever - Eyes Eyes: reports: Corrective lenses - Cardiovascular Cardiovascular: denies: Chest pain - Respiratory Respiratory: reports: Other (on supplemental oxygen) - Gastrointestinal Gastrointestinal: reports: Good appetite (see HPI). denies: Abdominal pain, Constipation (daily bowel movement reported without straining), Diarrhea, Change in bowel habits, Vomiting - Genitourinary Genitourinary: reports: Other (see HPI). denies: Dysuria, Frequency, Flank pain - Musculoskeletal Musculoskeletal: reports: Assistive devices (rollator), Other (No falls reported) - Neurological Neurological: reports: General weakness, Other (neuropathy to feet, see HPI). denies: Memory problems - Psychiatric Psychiatric: reports: Depression - Endocrine Endocrine: reports: Diabetes type 2 (see HPI) - Hematologic/Lymphatic Hematologic/Lymph: reports: Recurrent infections (Urinary tract infection, last UTI 01/11/2021) - All Other Systems All Other Systems: reports: Reviewed and negative Medications/Allergies - Medications Home Medications: Ambulatory Orders Medication Instructions Recorded Confirmed carvediloL [Carvedilol] 3.125 mg PO DAILY 01/29/16 06/18/20 Levothyroxine [Synthroid] 112 mcg PO QDAC #30 tablet 12/28/17 06/18/20 Spironolactone [Aldactone] 25 mg PO DAILY #30 tablet 12/28/17 06/18/20 lisinopriL [Lisinopril] 5 mg PO DAILY #30 tablet 12/28/17 06/18/20 Levalbuterol [Xopenex] 3 ml INH QID PRN 11/18/18 06/18/20 Ascorbic Acid [Vitamin C] 1,000 mg PO DAILY 12/20/18 06/18/20 Aspirin [Aspirin EC] 81 mg PO DAILY 12/20/18 06/18/20 C,E,Zinc,Copper 11/Uvavw7t/Lut 1 each PO DAILY 12/20/18 06/18/20 [Ocuvite Adult 50 Plus Softgel] Calcium Carbonate [Calcium] 500 mg PO BID 12/20/18 06/18/20 Cholecalciferol (Vitamin D3) 1,000 unit PO DAILY 12/20/18 06/18/20 [Vitamin D3] Garlic 1,000 mg PO DAILY 12/20/18 06/18/20 Loratadine 10 mg PO DAILY 12/20/18 06/18/20 Multivitamin [Multivitamins] 1 each PO DAILY 12/20/18 06/18/20 Levothyroxine [Synthroid] 75 mcg PO QDAC 04/02/19 06/18/20 Lovastatin 40 mg PO QPM 04/02/19 06/18/20 PARoxetine HCL [Paroxetine HCl] 40 mg PO DAILY 04/02/19 06/18/20 Cranberry 1 cap PO DAILY 05/11/20 06/18/20 Furosemide 40 mg PO .SUNMONWEDFRI 05/11/20 06/18/20 Levemir 32 units SQ BID 05/11/20 06/18/20 Novalin R 05/11/20 Vitamin B12 1 cap PO DAILY 05/11/20 06/18/20 Gabapentin [Neurontin] 200 mg PO QPM 12/23/20 12/23/20 - Allergies Allergies/Adverse Reactions: Allergies Allergy/AdvReac Type Severity Reaction Status Date / Time codeine Allergy Unknown Verified 10/13/20 16:32 Physical Exam - Physical Exam Unable to assess physical examination as this was done via audio call. Palliative Care - POLST Patient has POLST: Yes POLST Status: DNR, Selective Treatment Pain: Pain improved (neuropathy improved with gabapentin but not resolved) Tiredness/Fatigue: Mild (1-3) Sleep: Sleeps well Constipation: No - Palliative Care Discussion: Patient was recently treated for a urinary tract infection and is status post antibiotic course with resolution of her symptoms. She was positive for an E. coli urinary tract infection. She continues to display signs and symptoms of neuropathy due to underlying diabetes and has had positive effect with gabapentin 300 mg nightly however, this dose resulted in some instability with ambulation and therefore she had a dose reduction to 100 mg. However, despite having a dose reduction to 100 mg nightly that provided some relief a did not fully take oh way her neuropathy symptoms and therefore would benefit from further dose adjustment to 200 mg of gabapentin nightly and patient is amenable to trialing this. Reviewed purpose, dose and side effects of increase of gabapentin dose with understanding verbalized. Impression and Recommendations - Palliative Care Impression: This is a 85-year-old female with a history of diabetes mellitus type 2 with neuropathy and history of UTI. She is status post antibiotic course with Macrobid for E. coli urinary tract infection with symptoms resolved. She would continue to benefit from further dose suppression of her gabapentin from 100 mg to 200 mg nightly for underlying neuropathy due to diabetes mellitus type 2. Palliative care to continue provide support, care coordination, symptom management and anticipatory guidance. Recommendations/Counseling Done: 1. Acute cystitis. Urine culture positive for E.Coli >100,000cfu/mL and s/p treatment with macrobid. Symptoms resolved. Continue to encourage oral hydration in the future as well as pericare to reduce recurrence.. 2.Diabetic neuropathy to bilateral feet. Did not tolerate initial introduction of gabapentin 300 mg at bedtime. Will increase from gabapentin 100 mg to 200 mg at bedtime and see where the patient lands regarding symptom management and side effects. Continue to encourage use of shoes during ambulation. Continue to monitor. 3. Diabetes mellitus type 2. Longstanding history. Insulin-dependent. Blood glucose levels have been less than 200. Previously advised the patient to call if blood glucose levels are above 250. Continue Levemir 32 units twice daily subcutaneous and junction. Continue Novolin R on a sliding scale with meals. Last hemoglobin A1c 7 to 8% on 07/08/2020. Given the patient's advanced age a goal HgA1C is 7-8%. Continue to monitor. Total time spent 15 minutes with greater than 50% of the spent in counseling coordination of care with the patient and caregiver, Vandana; review of medication management and dose adjustment of gabapentin as well as recent urinary culture findings; and anticipatory guidance. Disclaimer: The chart note was formulated using voice recognition technology and unfortunately sound alike errors may occur. Telehealth Visit - TeleMedicine Visit Referring Provider: Dr. Tai Callahan Visit Type:: TeleHealth Phone Call Patient agrees and consents to this telehealth visit type: Yes Patient agrees to have their insurance billed: Yes Participants:: Caregiver Location of provider:: Office Location of patient:: Home Time spent:: 15 minutes Provider Statement: I spent 100% on the TeleHealth Phone Call with the patient with greater than 50% spent counseling the patient and coordination of care.
== END 2021-01-19 11:26 | disposition home or self-care (01) ==
LOC: PC 11:25
PROVIDERS: ATTEND Nurse Practitioner Family
DX: Z51.5 Encounter for palliative care (principal); E11.40 Type 2 diabetes mellitus with diabetic neuropathy, unspecified; Z87.440 Personal history of urinary (tract) infections; R53.83 Other fatigue; I10 Essential (primary) hypertension; E66.9 Obesity, unspecified; Z79.4 Long term (current) use of insulin; Z79.899 Other long term (current) drug therapy; Z99.81 Dependence on supplemental oxygen; Z66 Do not resuscitate

== ENCOUNTER 2021-02-28 12:40 | Outpatient (CLI) | payer MEDICARE ==
--- NOTE | 2021-02-28 18:27 | CONSULTATION NOTE ---
Palliative Care Follow Up - Referral Referring Provider: Dr. Tai Callahan Time of Visit: Intiated 1240 Referral setting: Home - History of Present Illness Update Brief HPI Update: This is an 85-year-old female who was seen in follow-up today within her home due to multiple comorbidities including diabetes mellitus type 2, obesity, hypertension, COPD with supplemental oxygen in place. Patient has a history of neuropathy due to diabetes mellitus type 2 and has been trialed on gabapentin nightly. Gabapentin 300 mg nightly was too strong for her and she felt "wobbly" she has tolerated dose reduction to gabapentin 200 mg nig htly. She reports that she has less of a sensation of her skin "being a sock." She does not wish to adjust her gabapentin at the present time. She is a longstanding history of diabetes mellitus for approximately 15 to 20 years. She is insulin-dependent and denies hypoglycemic events. Last hemoglobin A1c in June 2020 was 7.8%. Her friends, who is a retired nurse provides foot care and nail trimming within the home. She periodically checks her blood glucose levels throughout the week and presently has been running between 1 60-1 80. She continues on Novolin are with meals based on a sliding scale and uses Levemir 32 units twice daily. She stopped her toe on her left foot in October 2020 and then the nailbed continues to be discolored however, she is starting to see a new now pick through. She denies any tenderness or swelling. Since that incident she is now wearing closed toed shoes when ambulating within the home. She does have a history of depression. Periodically, she reports to feeling "blue" but findings that she will have these symptoms resolve when she takes a nap. She does report to seasonal affective disorder and with evenings being longer would benefit from light therapy which she does have in the home. She is using [id number]-[id number] Rester to remove generalized skin tag and this has been effective. The patient is morbidly obese, well-groomed sitting in her lift assist chair in the living room. She is extremely articulate with no evidence of acute distress with supplemental oxygen in place. Past Medical History: Patient has a past medical history of congestive heart failure is diastolic dysfunction, hypertension, hyperlipidemia, coronary artery disease, [place], pulmonary hypertension, COPD on supplemental oxygen, sleep apnea but does not wear CPAP, morbid obesity, depression, diabetes mellitus type 2, hypothyroidism, chronic hearing loss, anxiety, fatigue, necrotizing fasciitis of the right abdominal wall secondary to MRSA in 2019. +COVID 19 vaccine. Social History - Living Situation Living arrangement: At home Living Situation: With caregiver(s) (friend/caregiver Vandana and her , Terrence) Support System: Patient has been since 1989 after her of an [place]. 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 The patient had 6 children, 3 boys and 3 girls. She presently only has 2 remaining children that are alive, a boy and a girl. The patient has Vandana who serves as her primary caregiver and has additional assistance from Vandana's , Terrence. Vandana's contact number is [phone]. There is now a 16-year-old boy, Robert who is living in the home with all the above parties in the patient is providing emotional support and is serving as a parental figure. Medications/Allergies - Medications Home Medications: Ambulatory Orders Medication Instructions Recorded Confirmed carvediloL [Carvedilol] 3.125 mg PO DAILY 01/29/16 06/18/20 Levothyroxine [Synthroid] 112 mcg PO QDAC #30 tablet 12/28/17 06/18/20 Spironolactone [Aldactone] 25 mg PO DAILY #30 tablet 12/28/17 06/18/20 lisinopriL [Lisinopril] 5 mg PO DAILY #30 tablet 12/28/17 06/18/20 Levalbuterol [Xopenex] 3 ml INH QID PRN 11/18/18 06/18/20 Ascorbic Acid [Vitamin C] 1,000 mg PO DAILY 12/20/18 06/18/20 Aspirin [Aspirin EC] 81 mg PO DAILY 12/20/18 06/18/20 C,E,Zinc,Copper 11/Qqaef4y/Lut 1 each PO DAILY 12/20/18 06/18/20 [Ocuvite Adult 50 Plus Softgel] Calcium Carbonate [Calcium] 500 mg PO BID 12/20/18 06/18/20 Cholecalciferol (Vitamin D3) 1,000 unit PO DAILY 12/20/18 06/18/20 [Vitamin D3] Garlic 1,000 mg PO DAILY 12/20/18 06/18/20 Loratadine 10 mg PO DAILY 12/20/18 06/18/20 Multivitamin [Multivitamins] 1 each PO DAILY 12/20/18 06/18/20 Levothyroxine [Synthroid] 75 mcg PO QDAC 04/02/19 06/18/20 Lovastatin 40 mg PO QPM 04/02/19 06/18/20 PARoxetine HCL [Paroxetine HCl] 40 mg PO DAILY 04/02/19 06/18/20 Cranberry 1 cap PO DAILY 05/11/20 06/18/20 Furosemide 40 mg PO .SUNMONWEDFRI 05/11/20 06/18/20 Levemir 32 units SQ BID 05/11/20 06/18/20 Novalin R 05/11/20 Vitamin B12 1 cap PO DAILY 05/11/20 06/18/20 Gabapentin [Neurontin] 200 mg PO QPM 12/23/20 12/23/20 - Allergies Allergies/Adverse Reactions: Allergies Allergy/AdvReac Type Severity Reaction Status Date / Time codeine Allergy Unknown Verified 10/13/20 16:32 Review of Systems - Constitutional Constitutional: reports: Other (weight stable per patient report). denies: Fever - Eyes Eyes: reports: Corrective lenses - Ears, Nose & Throat Ears, Nose & Throat: reports: Dentures. denies: Hearing loss - Cardiovascular Cardiovascular: denies: Palpitations, Edema - Respiratory Respiratory: reports: SOB with exertion, Other (supplemental oxygen in place). denies: Cough, SOB at rest - Gastrointestinal Gastrointestinal: reports: Good appetite. denies: Constipation (daily bowel movement reported), Diarrhea, Vomiting - Genitourinary Genitourinary: denies: Dysuria - Musculoskeletal Musculoskeletal: reports: Assistive devices - Integumentary Integumentary: reports: Nail changes (left foot second toe). denies: Rash - Neurological Neurological: reports: General weakness, Other (neuropathy to feet--improved with gabapentin). denies: Memory problems - Psychiatric Psychiatric: reports: Depression - Endocrine Endocrine: reports: Diabetes type 2 - Hematologic/Lymphatic Hematologic/Lymph: reports: Recurrent infections (Urinary tract infection, last UTI 01/11/2021) - All Other Systems All Other Systems: reports: Reviewed and negative Physical Exam - Vital Signs Temperature: 36.3 C Pulse Rate: 69 O2 Saturation: 96 (on RA) Blood Pressure: 145/59 - Physical Exam General Appearance: positive: No acute distress, Alert, Other (morbidily obese and appears younger than stated age) Eyes Bilateral: positive: Other (+corrective lenses) ENT: positive: No signs of dehydration Neck: positive: Trachea midline Cardiovascular: positive: Regular rate & rhythm, Other (distant heart sounds due to body habitus) Respiratory: positive: No respiratory distress, Breath sounds nml, Other (on supplemental oxygen via NC) Abdomen: positive: Non-tender, Soft, Nml bowel sounds, Obese Skin: positive: Other (Left 2nd toenail with discoloration due to subungual hematoma beginning to see new growth of nail at base without s/s of infection) Extremities: positive: No pedal edema Neurologic/Psychiatric: positive: Oriented x3, Mood/affect nml Palliative Care - POLST Patient has POLST: Yes POLST Status: DNR, Selective Treatment - Palliative Care Discussion: The patient has displayed signs and symptoms of neuropathy due to underlying diabetes and has tolerated low-dose gabapentin with an improvement of her neuropathy symptoms. She is now being cautious and only ambulating within the home with shoes on her feet to prevent injury. She has intermittent reports of depression specifically around seasonal affective disorder. She is open to retrying light therapy. She also has techniques to no longer feel "blue" such as taking a nap and typically will wake up in a better mood. She will have dreams where she has support from her children that have been . She finds that March and April are difficult months for her due to deaths that occurred in the family. Supportive and empathetic listening provided. Patient denies suicidal ideation. At this present time does not wish to have dose adjustment of her SSRI. Impression and Recommendations - Palliative Care Impression: This is an 85-year-old female with a history of diabetes mellitus type 2, hypertension, peripheral neuropathy, COPD with supplemental oxygen in place who is homebound. She is tolerating introduction of gabapentin at a low dose for management of her neuropathy due to underlying diabetes mellitus to her bilateral feet. Has almost been 1 year since lab work was last obtained and would benefit from obtainment of lab work at next visit. Palliative care to continue to provide support, care coordination, symptom management and anticipatory guidance. Recommendations/Counseling Done: 1. Diabetic neuropathy to both lateral feet. Continue gabapentin 200 mg at bedtime with Rx sent to [facility] per patient's request. Strongly encouraged to continue utilization of shoes to prevent unknown injury and potential for subsequent adverse event with understanding verbalized. 2. Left second toe subinguinal hematoma to toenail. Slowly resolving. Evidence of new nail. No signs or symptoms of infection. Continue to monitor. 3. Diabetes mellitus type 2. Longstanding history. Insulin-dependent. Blood glucose levels less than 250. Advised to call if blood glucose levels are above 250 mg/dL as would then need to adjust insulin. Continue Levemir 32 units twice daily. Continue Novolin R on sliding scale with meals. Last hemoglobin A1c 7.8% on 07/08/2020. Due for repeat hemoglobin A1c at next visit. Given the patient's advanced age and chronic comorbidities a goal HgA1C is 7 to 8%. Continue to monitor. 4. Depression. Longstanding history. Does report to some underlying seasonal affective disorder. Request that patient start utilizing a light lamp for approximately 10 minutes a day. Continue Paxil as ordered. We will continue to monitor and readdress in the future as needed. The present time, patient does not wish to adjust her SSRI. 5.Hypertension. No cardiac awareness. Continue antihypertensive medications as ordered. When asked evaluation and obtain lipid panel, and CMP for reevaluation and follow with results. Goal blood pressure less than 140/90 given the patient's age and chronic comorbidities. Continue to monitor. 6. Advanced care planning. Patient has caregiving support within the home. As it is a taxing and considerable effort for her to leave her home due to her multiple comorbidities and underlying debility palliative care will continue to follow the patient within her home setting. CPT 02735 Plan of care reviewed at length with the patient with questions answered and addressed. Supportive listening provided. Disclaimer: The chart note was formulated using voice recognition technology and unfortunately sound alike errors may occur.
== END 2021-02-28 12:41 | disposition home or self-care (01) ==
LOC: PC 12:40
PROVIDERS: ATTEND Nurse Practitioner Family
DX: Z51.5 Encounter for palliative care (principal); E11.42 Type 2 diabetes mellitus with diabetic polyneuropathy; S90.222D Contusion of left lesser toe(s) with damage to nail, subsequent encounter; J44.9 Chronic obstructive pulmonary disease, unspecified; F32.9 Major depressive disorder, single episode, unspecified; E66.01 Morbid (severe) obesity due to excess calories; Z79.4 Long term (current) use of insulin; Z79.899 Other long term (current) drug therapy; Z99.81 Dependence on supplemental oxygen; Z66 Do not resuscitate
CPT/HCPCS: 99349

== ENCOUNTER 2021-03-16 08:00 | Outpatient (CLI) | payer MEDICARE ==
[2021-03-16 19:57] LABS: BILIRUBIN,URINE NEGATIVE (NEGATIVE); GLUCOSE, URINE (UA) NEGATIVE (NEGATIVE); KETONES,URINE (UA) NEGATIVE (NEGATIVE); LEUKOCYTE ESTERASE, URINE SMALL (NEGATIVE); NITRITE,URINE NEGATIVE (NEGATIVE); OCCULT BLOOD,URINE NEGATIVE (NEGATIVE); PH,URINE 5.5 PH (5.0-7.5); PROTEIN,URINE TRACE mg/dL (NEGATIVE); UROBILINOGEN,URINE 0.2 (NORMAL) E.U./dL (NORMAL)
[2021-03-16 20:03] LABS: BACTERIA,URINE Many /HPF (None Seen); CLARITY,URINE CLOUDY (CLEAR); RBC,URINE 0-5 /HPF (0-5); SQUAMOUS EPITHELIAL CELL,UR FEW Squamous (<= Few); WBC,URINE >25 /HPF (0-5)
== END 2021-03-16 23:59 | disposition home or self-care (01) ==
LOC: LAB.S 08:00
PROVIDERS: ATTEND Nurse Practitioner Family
DX: R30.0 Dysuria (principal)
CPT/HCPCS: 81001; 87086; 87181

== ENCOUNTER 2021-03-25 12:20 | Outpatient (CLI) | payer MEDICARE | END 2021-03-25 12:21 | disposition critical access hospital (66) | LOC: EMS 12:20 | DX: R53.1 Weakness (principal); R05.9 Cough, unspecified; R68.83 Chills (without fever) | CPT/HCPCS: A0425; A0429 ==

== ENCOUNTER 2021-03-25 13:11 | Emergency (ER) | payer MEDICARE ==
--- NOTE | 2021-03-25 13:32 | ED Physician Documentation ---
History of Present Illness - Stated complaint Stated Complaint: WEAKNESS - Chief complaint Chief Complaint: Resp - History obtained from History obtained from: Patient, EMS - History of Present Illness Timing: Today Pain level max: 0 Pain level now: 0 - Additonal information Additional information: Patient is an 85-year-old female who has a longstanding history of coronary artery disease, congestive heart failure, diabetes, sleep apnea, COPD and is on 3 L home oxygen. She states that she has had a cough for the past 3 weeks, white and clear sputum. No fevers. Did have chills 2 nights ago. She states that she feels slightly weaker than usual. She uses a walker to ambulate at home. She has had both her Covid vaccinations. Review of Systems Ten Systems: 10 systems reviewed and negative Constitutional: reports: Chills. denies: Fever Eyes: denies: Decreased vision Ears: denies: Ear pain Nose: denies: Rhinorrhea / runny nose, Congestion Throat: denies: Sore throat Cardiac: denies: Chest pain / pressure, Palpitations Respiratory: reports: Cough. denies: Dyspnea, Hemoptysis, Wheezing GI: denies: Abdominal Pain, Nausea, Vomiting, Diarrhea : denies: Dysuria Skin: denies: Rash Musculoskeletal: denies: Neck pain, Back pain Neurologic: denies: Headache PD PAST MEDICAL HISTORY - Past Medical History Cardiovascular: Congestive heart failure (Diastolic dysfunction), Hypertension, High cholesterol, Coronary artery disease, [place], Other (Pulmonary HTN) Respiratory: COPD (on 3L via NC of supplemental oxygen), Shortness of breath, Sleep apnea (does not wear a CPAP), Other Neuro: None Endocrine/Autoimmune: Type 2 diabetes, HyPOthyroidism GI: None [employer]EM[employer]: Other () : Frequency HEENT: Chronic sinusitis, Chronic hearing loss Psych: Anxiety Musculoskeletal: Fatigue Derm: Other drug resistant infections - Past Surgical History Past Surgical History: Yes /[employer]EMAN: Hysterectomy (at age 29) HEENT: Cataracts, Tonsil/Adenoidectomy Derm: Debridement - Present Medications Home Medications: Ambulatory Orders Medication Instructions Recorded Confirmed Spironolactone [Aldactone] 25 mg PO DAILY #30 tablet 12/28/17 06/18/20 Ascorbic Acid [Vitamin C] 1,000 mg PO DAILY 12/20/18 06/18/20 C,E,Zinc,Copper 11/Uluvx8g/Lut 1 each PO DAILY 12/20/18 06/18/20 [Ocuvite Adult 50 Plus Softgel] Calcium Carbonate [Calcium] 500 mg PO BID 12/20/18 06/18/20 Cholecalciferol (Vitamin D3) 1,000 unit PO DAILY 12/20/18 06/18/20 [Vitamin D3] Garlic 1,000 mg PO DAILY 12/20/18 06/18/20 Loratadine 10 mg PO DAILY 12/20/18 06/18/20 Multivitamin [Multivitamins] 1 each PO DAILY 12/20/18 06/18/20 Levothyroxine [Synthroid] 75 mcg PO QDAC 04/02/19 06/18/20 PARoxetine HCL [Paroxetine HCl] 40 mg PO DAILY 04/02/19 06/18/20 Cranberry 1 cap PO DAILY 05/11/20 06/18/20 Furosemide 40 mg PO .SUNMONWEDFRI 05/11/20 06/18/20 Levemir 32 units SQ BID 05/11/20 06/18/20 Vitamin B12 1 cap PO DAILY 05/11/20 06/18/20 Gabapentin [Neurontin] 200 mg PO QPM 12/23/20 12/23/20 Cefdinir 300 mg PO BID #20 cap 03/25/21 - Allergies Allergies/Adverse Reactions: Allergies Allergy/AdvReac Type Severity Reaction Status Date / Time codeine Allergy Unknown Verified 03/25/21 13:28 - Social History Does the pt smoke?: No Smoking Status: Former smoker Does the pt drink ETOH?: No Does the pt have substance abuse?: No - Immunizations Immunizations are current?: Yes - POLST Patient has POLST: Yes POLST Status: DNR PD ED PE NORMAL - Vitals Vital signs reviewed: Yes - General General: Alert and oriented X 3, No acute distress, Well developed/nourished - HEENT HEENT: PERRL, Moist mucous membranes - Neck Neck: Supple, no meningeal sign - Cardiac Cardiac: RRR, Strong equal pulses - Respiratory Respiratory: No respiratory distress, Clear bilaterally - Abdomen Abdomen: Soft, Non tender, Non distended - Derm Derm: Warm and dry - Extremities Extremities: No edema, No calf tenderness / cord - Neuro Neuro: Alert and oriented X 3 - Psych Psych: Normal mood, Normal affect Results - Vitals Vitals: Vital Signs - 24 hr 03/25/21 03/25/21 03/25/21 13:15 13:27 13:30 Temperature 36.3 C L Heart Rate 72 68 61 Respiratory 20 16 18 Rate Blood Pressure 128/61 144/74 H 140/51 H O2 Saturation 98 99 100 03/25/21 03/25/21 03/25/21 14:00 14:30 15:11 Temperature Heart Rate 60 60 Respiratory 18 16 20 Rate Blood Pressure 131/42 H 125/47 L 142/49 H O2 Saturation 97 98 98 03/25/21 03/25/21 03/25/21 16:00 17:00 19:10 Temperature Heart Rate 62 62 66 Respiratory 16 18 16 Rate Blood Pressure 149/57 H 174/66 H 144/47 H O2 Saturation 99 99 100 03/25/21 03/25/21 19:30 20:36 Temperature 37.6 C Heart Rate 67 67 Respiratory 18 18 Rate Blood Pressure 146/62 H 127/62 O2 Saturation 98 100 Oxygen O2 Source [] Nasal cannula O2 Source Nasal cannula Oxygen Flow Rate 3 - EKG (time done) 1427 Rate: Rate (enter#) (60) Rhythm: NSR, Other (PVC) [place]: Normal Intervals: Prolonged DC QRS: Normal Ischemia: T wave inversion (V4-6) - Labs Labs: Laboratory Tests 03/25/21 03/25/21 03/25/21 14:24 14:24 14:24 WBC 13.1 H RBC 3.54 L Hgb 10.5 L Hct 34.9 L MCV 98.6 MCH 29.7 MCHC 30.1 L RDW 12.3 Plt Count 328 MPV 9.1 Neut # (Auto) 8.7 H Lymph # (Auto) 2.3 [place] # (Auto) 1.6 H Eos # (Auto) 0.4 Baso # (Auto) 0.1 Absolute Nucleated RBC 0.00 Nucleated RBC % 0.0 Sodium 135 Potassium 4.7 Chloride 92 L Carbon Dioxide 33 H Anion Gap 10.0 BUN 40 H Creatinine 1.4 H Estimated GFR (MDRD) 36 L Glucose 203 H Calcium 10.3 Total Bilirubin 0.7 AST 31 ALT 29 Alkaline Phosphatase 116 Troponin I High Sens B-Natriuretic Peptide 77 Total Protein 7.4 Albumin 3.5 Globulin 3.9 Albumin/Globulin Ratio 0.9 L Urine Color Urine Clarity Urine pH Ur Specific [place] Urine Protein Urine Glucose (UA) Urine Ketones Urine Occult Blood Urine Nitrite Urine Bilirubin Urine Urobilinogen Ur Leukocyte Esterase Urine RBC Urine WBC Ur Squamous Epith Cells Urine Bacteria Ur Microscopic Review Urine Culture Comments Nasal Adenovirus (PCR) Nasal B. parapertussis DNA (PCR) Nasal Coronavir 229E PCR Nasal Coronavir HKU1 PCR Nasal Coronavir NL63 PCR Nasal Coronavir OC43 PCR Nasal Enterovir/Rhinovir PCR Nasal Influenza B PCR Nasal Influenza A PCR Nasal Parainfluen 1 PCR Nasal Parainfluen 2 PCR Nasal Parainfluen 3 PCR Nasal Parainfluen 4 PCR Nasal RSV (PCR) Nasal B.pertussis DNA PCR Nasal C.pneumoniae (PCR) Naveed Human Metapneumo PCR Nasal M.pneumoniae (PCR) Nasal SARS-CoV-2 (PCR) 03/25/21 03/25/21 03/25/21 14:24 15:33 16:49 WBC RBC Hgb Hct MCV MCH MCHC RDW Plt Count MPV Neut # (Auto) Lymph # (Auto) [place] # (Auto) Eos # (Auto) Baso # (Auto) Absolute Nucleated RBC Nucleated RBC % Sodium Potassium Chloride Carbon Dioxide Anion Gap BUN Creatinine Estimated GFR (MDRD) Glucose Calcium Total Bilirubin AST ALT Alkaline Phosphatase Troponin I High Sens 164.7 H* 152.2 H* B-Natriuretic Peptide Total Protein Albumin Globulin Albumin/Globulin Ratio Urine Color Urine Clarity Urine pH Ur Specific [place] Urine Protein Urine Glucose (UA) Urine Ketones Urine Occult Blood Urine Nitrite Urine Bilirubin Urine Urobilinogen Ur Leukocyte Esterase Urine RBC Urine WBC Ur Squamous Epith Cells Urine Bacteria Ur Microscopic Review Urine Culture Comments Nasal Adenovirus (PCR) NOT DETECTED Nasal B. parapertussis DNA (PCR) NOT DETECTED Nasal Coronavir 229E PCR NOT DETECTED Nasal Coronavir HKU1 PCR NOT DETECTED Nasal Coronavir NL63 PCR NOT DETECTED Nasal Coronavir OC43 PCR NOT DETECTED Nasal Enterovir/Rhinovir PCR NOT DETECTED Nasal Influenza B PCR NOT DETECTED Nasal Influenza A PCR NOT DETECTED Nasal Parainfluen 1 PCR NOT DETECTED Nasal Parainfluen 2 PCR NOT DETECTED Nasal Parainfluen 3 PCR NOT DETECTED Nasal Parainfluen 4 PCR NOT DETECTED Nasal RSV (PCR) NOT DETECTED Nasal B.pertussis DNA PCR NOT DETECTED Nasal C.pneumoniae (PCR) NOT DETECTED Naveed Human Metapneumo PCR NOT DETECTED Nasal M.pneumoniae (PCR) NOT DETECTED Nasal SARS-CoV-2 (PCR) NOT DETECTED 03/25/21 18:15 WBC RBC Hgb Hct MCV MCH MCHC RDW Plt Count MPV Neut # (Auto) Lymph # (Auto) [place] # (Auto) Eos # (Auto) Baso # (Auto) Absolute Nucleated RBC Nucleated RBC % Sodium Potassium Chloride Carbon Dioxide Anion Gap BUN Creatinine Estimated GFR (MDRD) Glucose Calcium Total Bilirubin AST ALT Alkaline Phosphatase Troponin I High Sens B-Natriuretic Peptide Total Protein Albumin Globulin Albumin/Globulin Ratio Urine Color YELLOW Urine Clarity CLEAR Urine pH 5.5 Ur Specific [place] 1.015 Urine Protein NEGATIVE Urine Glucose (UA) NEGATIVE Urine Ketones NEGATIVE Urine Occult Blood NEGATIVE Urine Nitrite NEGATIVE Urine Bilirubin NEGATIVE Urine Urobilinogen 0.2 (NORMAL) Ur Leukocyte Esterase SMALL H Urine RBC 0-5 Urine WBC 11-25 H Ur Squamous Epith Cells RARE Squamous Urine Bacteria Moderate H Ur Microscopic Review INDICATED Urine Culture Comments INDICATED Nasal Adenovirus (PCR) Nasal B. parapertussis DNA (PCR) Nasal Coronavir 229E PCR Nasal Coronavir HKU1 PCR Nasal Coronavir NL63 PCR Nasal Coronavir OC43 PCR Nasal Enterovir/Rhinovir PCR Nasal Influenza B PCR Nasal Influenza A PCR Nasal Parainfluen 1 PCR Nasal Parainfluen 2 PCR Nasal Parainfluen 3 PCR Nasal Parainfluen 4 PCR Nasal RSV (PCR) Nasal B.pertussis DNA PCR Nasal C.pneumoniae (PCR) Naveed Human Metapneumo PCR Nasal M.pneumoniae (PCR) Nasal SARS-CoV-2 (PCR) - Rads (name of study) cxr Radiology: Final report received, EMP read contemporaneously, See rad report (1.Cardiomegaly pulmonary vascular congestion. ) PD MEDICAL DECISION MAKING - ED course Complexity details: reviewed results, re-evaluated patient, considered differential, d/w patient ED course: Patient is an 85-year-old female who presents to the emergency department generalized weakness and cough x3 weeks. Recently treated for UTI. Her chest x-ray shows cardiomegaly and pulmonary vascular congestion. She has not hypoxic. Covid test is negative. Respiratory PCR is negative. She is found to have a continued versus recurrent UTI. Given Rocephin we will place on oral antibiotics for home. Patient is very well-appearing, nontoxic. Afebrile. Stable on her normal home O2. She would like to go home at this time and will follow up with her doctor. Patient also does have a chronic troponin leak, second troponin decreased. Patient has no chest pain. Has had her regular troponin I is up over 0.10 in the past. Departure - Departure Disposition: 01 Home, Self Care Clinical Impression: Cough UTI (urinary tract infection) Qualifiers: Urinary tract infection type: acute cystitis Hematuria presence: without hematuria Qualified Code(s): N30.00 - Acute cystitis without hematuria Condition: Good Instructions: ED UTI Cystitis Female Follow-Up: Mariam Puente ARNP, [employer] [facility] [Primary Care Provider] - Within 1 week Prescriptions: Cefdinir 300 mg PO BID #20 cap Comments: Your prescriptions were sent to [facility] in [place]. Take all antibiotics until gone. Return if you worsen. Please follow-up with your doctor for further care. Discharge Date/Time: 03/25/21 20:50
--- NOTE | 2021-03-25 14:18 | XRAY Report ---
PROCEDURE: Chest 1 View X-Ray INDICATIONS: Cough x 3 weeks TECHNIQUE: One view of the chest was acquired. COMPARISON: December 28, 2018 FINDINGS: SUPPORT DEVICES: None. LUNG/PLEURA: Increased prominence in interstitial markings, concerning for pulmonary vascular congest ion. No consolidation, pleural effusion, or pneumothorax. MEDIASTINUM: Prominence of the cardiac mediastinal silhouette, partially exaggerated by patient rotat ion and technique. BONES/SOFT TISSUES: No acute abnormality. Redemonstrated deformity of the left proximal humerus. IMPRESSION: 1.Cardiomegaly pulmonary vascular congestion. Reviewed by: James Espino MD on 03/25/2021 2:17 PM PDT Approved by: James Espino MD on 03/25/2021 2:17 PM PDT Station ID: [id number]
[2021-03-25 14:30] LABS: BASOPHILS # (AUTO) 0.1 10^3/uL (0.0-0.1); BASOPHILS % (AUTO) 0.6 %; EOSINOPHILS # (AUTO) 0.4 10^3/uL (0.0-0.7); HCT - HEMATOCRIT 34.9 % (37.0-47.0); HGB - HEMOGLOBIN 10.5 g/dL (12.0-16.0); LYMPHOCYTES # (AUTO) 2.3 10^3/uL (1.5-3.5); LYMPHOCYTES % (AUTO) 17.4 %; MEAN CORPUSCULAR HEMOGLOBIN 29.7 pg (27.0-31.0); MEAN CORPUSCULAR HGB CONC 30.1 g/dL (32.0-36.0); MEAN CORPUSCULAR VOLUME 98.6 fL (81.0-99.0); MEAN PLATELET VOLUME 9.1 fL (7.9-10.8); MONOCYTES # (AUTO) 1.6 10^3/uL (0.0-1.0); MONOCYTES % (AUTO) 12.1 %; NEUTROPHILS # (AUTO) 8.7 10^3/uL (1.5-6.6); NEUTROPHILS % (AUTO) 66.6 %; PLT - PLATELET COUNT 328 10^3/uL (130-450); RED BLOOD COUNT 3.54 10^6/uL (4.20-5.40); RED CELL DISTRIBUTION WIDTH 12.3 % (12.0-15.0); WHITE BLOOD COUNT 13.1 x10^3/uL (4.8-10.8)
[2021-03-25 14:50] LABS: ALBUMIN 3.5 g/dL (3.2-5.5); ALBUMIN/GLOBULIN RATIO 0.9 (1.0-2.2); BILIRUBIN,TOTAL 0.7 mg/dL (0.2-1.0); CALCIUM 10.3 mg/dL (8.5-10.3); CREATININE 1.4 mg/dL (0.4-1.0); POTASSIUM 4.7 mmol/L (3.5-5.0); TOTAL PROTEIN 7.4 g/dL (6.7-8.2)
[2021-03-25] MEDS ORDERED: SODIUM CHLORIDE 0.9% 500 ML IV STA (15:10)
[2021-03-25 17:12] LABS: B. PARAPERTUSSIS- RESP PCR PAN NOT DETECTED; B. PERTUSSIS- RESP PCR PANEL NOT DETECTED; C. PNEUMONIAE- RESP PCR PANEL NOT DETECTED; CORONAVIRUS 229E-RESP PCR NOT DETECTED; CORONAVIRUS HKU1-RESP PCR NOT DETECTED; CORONAVIRUS NL63-RESP PCR NOT DETECTED; CORONAVIRUS OC43-RESP PCR NOT DETECTED; HUMAN METAPNEUMOVIRUS NOT DETECTED; INFLUENZA A- RESP PCR PANEL NOT DETECTED; INFLUENZA B - RESP PCR PANEL NOT DETECTED; M. PNEUMONIAE- RESP PCR PANEL NOT DETECTED; PARAINFLUENZA VIRUS 1 NOT DETECTED; PARAINFLUENZA VIRUS 2 NOT DETECTED; PARAINFLUENZA VIRUS 3 NOT DETECTED; PARAINFLUENZA VIRUS 4 NOT DETECTED; RHINOVIRUS/ENTEROVIRUS NOT DETECTED; RSV- RESP PCR PANEL NOT DETECTED; SARS-CoV-2 -RESP PCR PANEL NOT DETECTED
[2021-03-25 18:22] LABS: BILIRUBIN,URINE NEGATIVE (NEGATIVE); GLUCOSE, URINE (UA) NEGATIVE (NEGATIVE); KETONES,URINE (UA) NEGATIVE (NEGATIVE); LEUKOCYTE ESTERASE, URINE SMALL (NEGATIVE); NITRITE,URINE NEGATIVE (NEGATIVE); OCCULT BLOOD,URINE NEGATIVE (NEGATIVE); PH,URINE 5.5 PH (5.0-7.5); PROTEIN,URINE NEGATIVE (NEGATIVE); UROBILINOGEN,URINE 0.2 (NORMAL) E.U./dL (NORMAL)
[2021-03-25 18:27] LABS: CLARITY,URINE CLEAR (CLEAR)
[2021-03-25 18:39] LABS: BACTERIA,URINE Moderate /HPF (None Seen); RBC,URINE 0-5 /HPF (0-5); SQUAMOUS EPITHELIAL CELL,UR RARE Squamous (<= Few)
[2021-03-25] MEDS ORDERED: cefTRIAXone 1 GM VIAL IVP STA (18:45)
[2021-03-25 20:36] VITALS: BP 127/62
== END 2021-03-25 20:50 | disposition home or self-care (01) ==
LOC: EDUNIT# → ED 13:11
DX: N30.00 Acute cystitis without hematuria (principal); R05.9 Cough, unspecified; R53.1 Weakness; Z20.822 Contact with and (suspected) exposure to COVID-19; I49.3 Ventricular premature depolarization; I11.0 Hypertensive heart disease with heart failure; I50.9 Heart failure, unspecified; I25.10 Atherosclerotic heart disease of native coronary artery without angina pectoris; E11.9 Type 2 diabetes mellitus without complications; J44.9 Chronic obstructive pulmonary disease, unspecified; Z99.81 Dependence on supplemental oxygen; Z87.891 Personal history of nicotine dependence; Z66 Do not resuscitate
CPT/HCPCS: 0202U; 36415; 80053; 81001; 81003; 83880; 84484; 85025; 87086; 87181; 93005; 96374; 99284

== ENCOUNTER 2021-04-14 13:46 | Outpatient (CLI) | payer MEDICARE ==
--- NOTE | 2021-04-14 14:09 | CONSULTATION NOTE ---
Palliative Care Follow Up - Referral Referring Provider: Dr. Tai Callahan Time of Visit: [id number] Referral setting: Home Referral Reason: HTN/DM type II/ Hypothyroidism - Information Sources Records reviewed: Previous records reviewed Exam limitations: No limitations - History of Present Illness Update Brief HPI Update: This is an 85-year-old female who was seen in follow-up today within her home due to multiple comorbidities including diabetes mellitus type 2, neuropathy to bilateral lower extremities, obesity, hypertension and hypothyroidism. Provider wore N95 mask. Patient has a history of neuropathy due to diabetes mellitus type 2 and has been trialed on gabapentin nightly. She felt the gabapentin 300 mg nightly was too strong and she felt "wobbly." She has tolerated gabapentin 200 mg nightly. She reports that this is improved her overall symptoms of neuropathy with [id number] sensation. She no longer has a feeling that her skin is "a sock." She does not wish to adjust her gabapentin at the present time. She is a longstanding history of diabetes mellitus for approximately 15 to 20 years. She is insulin-dependent and denies any hypoglycemic events. Last hemoglobin A1c in June 2020 was 7.8%. Her friend, Jacqueline, is a retired nurse and provides foot care and nail trimming within the home. She checks her blood glucose levels throughout the week and has been presently running 1 75-1 80. Today she reports her blood glucose level was 139. She continues on Novolin with meals based on a sliding scale and uses Levemir 32 units twice daily. She was seen recently by [facility] and reports diabetic retinopathy. She is a follow-up with Dr. Bermudez with [facility] on 05/09. She recently had generalized weakness and was seen and evaluated in the emergency department on 03/25 and was found to have a persistent urinary tract infection and completed cefdinir course. She is now taking d-mannose on a daily basis. She has not had any concerns regarding recurrent UTI at the present time. She does report to nasal dryness. She is unable to wear her humidification overnight due to pooling of water and she will wake up coughing or her nightgown being saturated. Prior to the evening she uses [place] nasal gel to moisturize her nasal passageways. Reports that her appetite is stable. She is morbidly obese, well-groomed sitting in her lift assist chair in the living room. She is extremely articul ate with no evidence of acute distress with supplemental oxygen in place with humidifier. Past Medical History: Patient has a past medical history of congestive heart failure is diastolic dysfunction, hypertension, hyperlipidemia, coronary artery disease, [place], pulmonary hypertension, COPD on supplemental oxygen, sleep apnea but does not wear CPAP, morbid obesity, depression, diabetes mellitus type 2, hypothyroidism, chronic hearing loss, anxiety, fatigue, necrotizing fasciitis of the right abdominal wall secondary to MRSA in 2019. +COVID 19 vaccine. Social History - Living Situation Living arrangement: At home Living Situation: With caregiver(s) (friend/caregiver Vandana and her , Terrence) Support System: Patient has been since 1989 after her of an MA. 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 The patient had 6 children, 3 boys and 3 girls. She presently only has 2 remaining children that are alive, a boy and a girl. The patient has Vandana who serves as her primary caregiver and has additional assistance from Vandana's , Terrence. Vandana's contact number is [phone]. There is now a 16-year-old boy, Robert who is living in the home. Medications/Allergies - Medications Home Medications: Ambulatory Orders Medication Instructions Recorded Confirmed Spironolactone [Aldactone] 25 mg PO DAILY #30 tablet 12/28/17 06/18/20 Ascorbic Acid [Vitamin C] 1,000 mg PO DAILY 12/20/18 06/18/20 C,E,Zinc,Copper 11/Xlgge5m/Lut 1 each PO DAILY 12/20/18 06/18/20 [Ocuvite Adult 50 Plus Softgel] Calcium Carbonate [Calcium] 500 mg PO BID 12/20/18 06/18/20 Cholecalciferol (Vitamin D3) 1,000 unit PO DAILY 12/20/18 06/18/20 [Vitamin D3] Garlic 1,000 mg PO DAILY 12/20/18 06/18/20 Loratadine 10 mg PO DAILY 12/20/18 06/18/20 Multivitamin [Multivitamins] 1 each PO DAILY 12/20/18 06/18/20 Levothyroxine [Synthroid] 75 mcg PO QDAC 04/02/19 06/18/20 PARoxetine HCL [Paroxetine HCl] 40 mg PO DAILY 04/02/19 06/18/20 Cranberry 1 cap PO DAILY 05/11/20 06/18/20 Furosemide 40 mg PO .SUNMONWEDFRI 05/11/20 06/18/20 Levemir 32 units SQ BID 05/11/20 06/18/20 Vitamin B12 1 cap PO DAILY 05/11/20 06/18/20 Gabapentin [Neurontin] 200 mg PO QPM 12/23/20 12/23/20 D Mannose 04/14/21 - Allergies Allergies/Adverse Reactions: Allergies Allergy/AdvReac Type Severity Reaction Status Date / Time codeine Allergy Unknown Verified 03/25/21 13:28 Review of Systems - Constitutional Constitutional: reports: Other (weight stable per patient report without noted weight loss). denies: Fever - Eyes Eyes: reports: Vision loss (seeing retinal specialist with f/u 05/09 and will request records), Corrective lenses - Ears, Nose & Throat Ears, Nose & Throat: reports: Dentures. denies: Hearing loss - Cardiovascular Cardiovascular: denies: Palpitations, Edema - Respiratory Respiratory: reports: SOB with exertion, Other (supplemental oxygen in place). denies: Cough, Wheezing - Gastrointestinal Gastrointestinal: reports: Good appetite. denies: Abdominal pain, Constipation (daily bowel movement reported), Vomiting - Genitourinary Genitourinary: denies: Dysuria - Musculoskeletal Musculoskeletal: reports: Assistive devices - Integumentary Integumentary: reports: Nail changes (left foot second toe with hematoma growing out). denies: Rash - Neurological Neurological: reports: General weakness, Other (neuropathy to feet--improved with gabapentin). denies: Memory problems - Psychiatric Psychiatric: reports: Depression - Endocrine Endocrine: reports: Diabetes type 2 (see HPI), Hypothyroidism - Hematologic/Lymphatic Hematologic/Lymph: reports: Recurrent infections (Urinary tract infection, last UTI 01/11/2021, 03/25/2021) - All Other Systems All Other Systems: reports: Reviewed and negative Physical Exam - Vital Signs Temperature: 36.6 C Pulse Rate: 73 O2 Saturation: 95 Blood Pressure: 138/60 - Physical Exam General Appearance: positive: No acute distress, Alert, Other (morbidily obese and appears younger than stated age) Eyes Bilateral: positive: Normal inspection, Other (+corrective lenses) ENT: positive: No signs of dehydration Neck: positive: Trachea midline Cardiovascular: positive: Regular rate & rhythm, Other (distant heart sounds due to body habitus). negative: Systolic murmur Respiratory: positive: No respiratory distress, Breath sounds nml, Other (on supplemental oxygen via NC). negative: Rales Abdomen: positive: Non-tender, Soft, Nml bowel sounds, Obese Skin: positive: Other (Left 2nd toenail with discoloration due to subungual hematoma that is growing out with new growth at base) Extremities: positive: No pedal edema Neurologic/Psychiatric: positive: Oriented x3, Mood/affect nml Palliative Care - POLST Patient has POLST: Yes POLST Status: DNR, Selective Treatment Pain: No pain Sleep: Sleeps well Constipation: No - Palliative Care Discussion: Patient finds the month of April difficult for her due to the deaths that occurred in her family. She is reflective today regarding the loss of her sonBrando and supportive and empathetic listening provided. She continues on her present dosage of SSRI. Patient's neuropathy symptoms due to her underlying diabetes mellitus is improved with low-dose gabapentin. Continue to encourage ambulation with shoes on her feet to prevent injury. Results - Lab Results Lab results reviewed: No Fish Bones: 04/14/21 13:47 Impression and Recommendations - Palliative Care Impression: This is an 85-year-old female who is seen in follow-up today within her home due to COPD with chronic oxygen supplementation, debility, diabetes mellitus, and neuropathy in need of routine lab work due to her multiple comorbidities and medications. At the present time, it is difficult for the patient to leave her home setting due to her chronic morbidities and morbid obesity. Palliative care will continue to provide support, explore goals of care, care coordination, symptom management and anticipatory guidance. Recommendations/Counseling Done: 1. Diabetes mellitus type 2. Longstanding history. Insulin-dependent. Goal blood glucose levels will be less than 250. Continue Levemir to 32 units twice daily. Continue Novolin R on sliding scale with meals. Obtained hemoglobin A1c and will follow with results today. Given the patient's advanced age and chronic comorbidities a goal hemoglobin A1c is 7 to 8%. Continue to monitor. 2. Diabetic neuropathy to bilateral feet. Stable. Continue gabapentin 200 mg at bedtime. Continued strong encouragement for utilization of shoes to prevent injury and potential for subsequent adverse event with understanding verbalized. 3. Hypertension. No cardiac awareness. Continue antihypertensive medications as ordered. Obtain CMP today. Goal blood pressure less than 140/90 given the patient's age and chronic comorbidities. Continue to monitor. 4. Hypothyroidism. Continue levothyroxine as ordered. Obtain TSH and T4 and follow with results of dose adjustment as needed. 5. Congestive heart failure. No recorded EF noted recently. No evidence of lower extremity edema and appears to be euvolemic. Presently on spironolactone 25 mg daily and furosemide 40 mg daily. Continue current diuretic regimen as ordered. 6. Flu vaccine. Adminstered Fluzone High Dose [employer] Lot Number [id number] December 08, 2021 to Left Deltoid after consent reviewed and signed by patient. Provided handout on Influenza Vaccine from CDC. REviewed common side effects such as soreness, redness and/or swelling from shot at injection site and when to contact with concerns to PCP. Total time spent 40 minutes with greater than 50% of the spent in counseling and coordination of care with the patient; examination of patient; obtainment of lab work; administration of influenza vaccine; supportive and empathetic listening; and advance care planning. Disclaimer: The chart note was formulated using voice recognition technology and unfortunately sound alike errors may occur.
[2021-04-14 14:19] LABS: ALBUMIN 3.6 g/dL (3.2-5.5); BILIRUBIN,TOTAL 0.9 mg/dL (0.2-1.0); CALCIUM 9.8 mg/dL (8.5-10.3); CREATININE 1.2 mg/dL (0.4-1.0); POTASSIUM 4.7 mmol/L (3.5-5.0); TOTAL PROTEIN 7.1 g/dL (6.7-8.2)
[2021-04-14 15:25] LABS: THYROID STIMULATING HORMONE 0.74 uIU/mL (0.34-5.60)
[2021-04-14 15:27] LABS: FREE T4 (FREE THYROXINE) 0.91 ng/dL (0.58-1.64)
[2021-04-14 20:23] LABS: ESTIMATED AVERAGE GLUCOSE 171 mg/dL (70-100); HEMOGLOBIN A1c% 7.6 % (4.27-6.07)
== END 2021-04-14 13:47 | disposition home or self-care (01) ==
LOC: PC 13:46 → LAB.R 13:47
PROVIDERS: ATTEND Nurse Practitioner Family
DX: Z51.5 Encounter for palliative care (principal); E11.65 Type 2 diabetes mellitus with hyperglycemia; E11.42 Type 2 diabetes mellitus with diabetic polyneuropathy; I11.0 Hypertensive heart disease with heart failure; I50.9 Heart failure, unspecified; E03.9 Hypothyroidism, unspecified; E11.319 Type 2 diabetes mellitus with unspecified diabetic retinopathy without macular edema; J44.9 Chronic obstructive pulmonary disease, unspecified; E55.9 Vitamin D deficiency, unspecified; E66.01 Morbid (severe) obesity due to excess calories; Z99.81 Dependence on supplemental oxygen; Z79.4 Long term (current) use of insulin; Z66 Do not resuscitate
CPT/HCPCS: 36415; 80053; 82306; 83036; 84439; 84443; 99349

== ENCOUNTER 2021-07-26 12:10 | Outpatient (CLI) | payer MEDICARE ==
--- NOTE | 2021-07-26 13:40 | CONSULTATION NOTE ---
Palliative Care Follow Up - Referral Referring Provider: Dr. Tai Callahan Time of Visit: [id number] Referral setting: Home Referral Reason: HTN/DM type II/Skin tags/COPD - Information Sources Records reviewed: Previous records reviewed History/Review of Systems obtained from: Patient Exam limitations: No limitations - History of Present Illness Update Brief HPI Update: This is an 85-year-old female who was seen in follow-up today within her home due to multiple comorbidities including diabetes mellitus type 2, neuropathy to bilateral lower extremities, COPD and hypertension. Provider wore N95 mask. Patient has a history of neuropathy due to diabetes mellitus type 2 and has been trialed on gabapentin nightly. When she was initially on gabapentin 300 mg nightly she felt it was too strong and and "wobbly." She has tolerated gabapentin 200 mg nightly. However, she still reports that she feels like there is a ball of a sock at the base of her toes. Would benefit from further dose adjustment of her gabapentin and she is open to this. She is a longstanding history of diabetes mellitus for approximately 15 to 20 years. She is insulin-dependent and denies any hypoglycemic events. Last hemoglobin A1c was 7.6% on 04/14/2021. When patient checks her blood glucose level she reports that it has been at the highest 187. And typically has been in the 130s. She has been seeing the splitter hand and is looking to have adjustments to her eyeglasses. She now has a history of diabetic retinopathy. She has next follow-up with ophthalmology in August 2021. Has a history of frequent urinary tract infections. She has not had any recent dysuria, hematuria or signs and symptoms of urinary tract infection. She continues to have adequate oral hygiene intake. She does have skin tags intermittently scattered to her neck. She is asking for liquid nitrogen to be applied to freeze them off as has been done in the past. At times the skin tags were will catch on her neck causing discomfort. Advised that palliative care does not have access to provide this service. She recently stubbed her toe on the left foot and there is a mild abrasion without evidence of infection. She no longer has a subinguinal hematuria as it is grown out. She does have reports of an ingrown great toenail that her friend who is a retired nurse provides nail trimming for and management. Patient reports that her appetite is stable and no weight loss. She is morbidly obese, well groomed sitting in her lift assist chair in the living room. She is extremely articulate with no evidence of acute distress with supplemental oxygen in place with a humidifier. Past Medical History: Patient has a past medical history of congestive heart failure is diastolic dysfunction, hypertension, hyperlipidemia, coronary artery disease, [place], pulmonary hypertension, COPD on supplemental oxygen, sleep apnea but does not wear CPAP, morbid obesity, depression, diabetes mellitus type 2, hypothyroidism, chronic hearing loss, anxiety, fatigue, necrotizing fasciitis of the right abdominal wall secondary to MRSA in 2019. +COVID 19 vaccine. Social History - Living Situation Living arrangement: At home Living Situation: With caregiver(s) (friend/caregiver Vandana and her , Terrence) Support System: Patient has been since 1989 after her of an [place]. 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 The patient had 6 children, 3 boys and 3 girls. She presently only has 2 remaining children that are alive, a boy and a girl. The patient has Vandana who serves as her primary caregiver and has additional assistance from Vandana's , Terrence. Vandana's contact number is [phone]. The patient just had another great grandson born and his name is Kingsley and she is quite smitten. She now has 6 great-grandchildren. Medications/Allergies - Medications Home Medications: Ambulatory Orders Medication Instructions Recorded Confirmed Spironolactone [Aldactone] 25 mg PO DAILY #30 tablet 12/28/17 06/18/20 Ascorbic Acid [Vitamin C] 1,000 mg PO DAILY 12/20/18 06/18/20 C,E,Zinc,Copper 11/Vsyga1f/Lut 1 each PO DAILY 12/20/18 06/18/20 [Ocuvite Adult 50 Plus Softgel] Calcium Carbonate [Calcium] 500 mg PO BID 12/20/18 06/18/20 Cholecalciferol (Vitamin D3) 1,000 unit PO DAILY 12/20/18 06/18/20 [Vitamin D3] Garlic 1,000 mg PO DAILY 12/20/18 06/18/20 Loratadine 10 mg PO DAILY 12/20/18 06/18/20 Multivitamin [Multivitamins] 1 each PO DAILY 12/20/18 06/18/20 Levothyroxine [Synthroid] 75 mcg PO QDAC 04/02/19 06/18/20 PARoxetine HCL [Paroxetine HCl] 40 mg PO DAILY 04/02/19 06/18/20 Cranberry 1 cap PO DAILY 05/11/20 06/18/20 Furosemide 40 mg PO .SUNMONWEDFRI 05/11/20 06/18/20 Levemir 32 units SQ BID 05/11/20 06/18/20 Vitamin B12 1 cap PO DAILY 05/11/20 06/18/20 Gabapentin [Neurontin] 300 mg PO QPM 12/23/20 12/23/20 D Mannose 04/14/21 Levothyroxine [Synthroid] 1 tab PO QDAC 07/26/21 07/26/21 - Allergies Allergies/Adverse Reactions: Allergies Allergy/AdvReac Type Severity Reaction Status Date / Time codeine Allergy Unknown Verified 03/25/21 13:28 Review of Systems - Constitutional Constitutional: reports: Other (weight stable per patient report without noted weight loss). denies: Fever, Poor appetite - Eyes Eyes: reports: Vision loss (seeing retinal specialist with f/u August 2021), Corrective lenses (looking to get new glasses) - Ears, Nose & Throat Ears, Nose & Throat: reports: Nasal congestion, Dentures. denies: Hearing loss - Cardiovascular Cardiovascular: denies: Palpitations, Edema - Respiratory Respiratory: reports: SOB with exertion, Other (supplemental oxygen in place). denies: Cough, Wheezing - Gastrointestinal Gastrointestinal: reports: Good appetite. denies: Abdominal pain, Constipation (daily bowel movement reported), Vomiting - Genitourinary Genitourinary: denies: Dysuria, Frequency, Hematuria - Musculoskeletal Musculoskeletal: reports: Assistive devices - Integumentary Integumentary: reports: Nail changes (left foot second toe stubbed skin with scab). denies: Rash - Neurological Neurological: reports: General weakness, Other (neuropathy to feet--improved with gabapentin). denies: Memory problems - Psychiatric Psychiatric: reports: Depression - Endocrine Endocrine: reports: Diabetes type 2 (04/2021 HgA1C 7.6%), Hypothyroidism - Hematologic/Lymphatic Hematologic/Lymph: reports: Recurrent infections (Urinary tract infection, last UTI 01/11/2021, 03/25/2021) - All Other Systems All Other Systems: reports: Reviewed and negative Physical Exam - Vital Signs Temperature: 36.5 C Pulse Rate: 66 O2 Saturation: 94 (on 3.5L) Blood Pressure: 125/68 (right wrist) - Physical Exam General Appearance: positive: No acute distress, Alert, Other (morbidily obese and appears younger than stated age) Eyes Bilateral: positive: Normal inspection, Other (+corrective lenses) ENT: positive: No signs of dehydration Neck: positive: Trachea midline Cardiovascular: positive: Regular rate & rhythm, Other (distant heart sounds due to body habitus). negative: Systolic murmur Respiratory: positive: No respiratory distress, Rales (BLL), Other (on supplemental oxygen via NC). negative: Wheezes Abdomen: positive: Non-tender, Soft, Nml bowel sounds, Obese Skin: positive: Other (Left 2nd with scab at base, resolving, without discharge or erythema. Left 2nd toe subungual hematoma resolved. Scattered skin tags to neck.) Extremities: positive: No pedal edema Neurologic/Psychiatric: positive: Oriented x3, Mood/affect nml Palliative Care - POLST Patient has POLST: Yes POLST Status: DNR, Selective Treatment Pain: Comment (+neuropathy) - Palliative Care Discussion: The patient continues with signs and symptoms of neuropathy due to underlying diabetes mellitus. She has had diabetes mellitus for almost 2 decades. She has tolerated low-dose gabapentin however, would benefit when further dose titration of gabapentin from 200 mg to 300 mg nightly. Will monitor how she tolerates based on previous response. If not effective then would consider introduction of pregabalin and discontinuation of gabapentin. Again, encouraged her to wear shoes with ambulation when in the home to prevent injury. Results - Lab Results Lab results reviewed: Yes Lab and Imaging Results: 04/2021 labs Impression and Recommendations - Palliative Care Impression: This is a horacio 85-year-old female with history of diabetes mellitus type 2, peripheral neuropathy due to diabetes mellitus, COPD with supplemental oxygen in place who is homebound. She would benefit from dose increase of gabapentin from 200 mg to 300 mg nightly due to neuropathy to her bilateral feet. Palliative care to continue provide support, care coordination, symptom management and anticipatory guidance as it is extremely taxing for the patient to leave her home environment. Recommendations/Counseling Done: 1. Diabetic neuropathy to bilateral feet. Increase gabapentin to 300 mg at bedtime. Continue to monitor patient's response given at previous dose of 300 mg the patient felt "wobbly." However, she has been stable on gabapentin 200 mg nightly with tolerance. However, would benefit from further dose titration for management of neuropathy symptoms. Encouraged to wear shoes with ambulation. If unable to tolerate 300 mg of gabapentin consider switching to pregabalin 25 mg nightly. We will follow-up with patient regarding status. 2. Diabetes mellitus type 2. Longstanding history. Insulin-dependent. Patient aware to call if blood glucose levels are above 250 mg/dL as then would need to adjust insulin. Continue Levemir 32 units twice daily. Continue NovoLog Lenn are on sliding scale with meals. Last hemoglobin A1c 7.6% on 04/2021. Will reevaluate hemoglobin A1c at next visit. Given the patient's advanced age and chronic comorbidities goal hemoglobin A1c is 7 to 8%. Continue to monitor. 3. COPD on chronic oxygen supplementation. No history of COPD exacerbation for patient's report. Is on supplemental oxygen 3.5 L via nasal cannula. Continue with humidification. 4. Hypothyroidism. Patient on levothyroxine 75 mcg and 112 mcg congruence.Last TSH 0.74 and free T4 0.91. Continue present dosage Of levothyroxine. 5. COPD vaccination. Patient is homebound and unable to leave her home at the p resent time. She has had the [employer] vaccine for Covid19 and requesting a booster. Provided contact information for [facility] for obtainment. Total time spent 40 minutes with greater than 50% of the spent in counseling and coordination of care with the patient, review of last lab work hemoglobin A1c and TSH, examination of patient; symptom management, medication management and anticipatory guidance.
== END 2021-07-26 12:11 | disposition home or self-care (01) ==
LOC: PC 12:10
PROVIDERS: ATTEND Nurse Practitioner Family
DX: Z51.5 Encounter for palliative care (principal); E11.42 Type 2 diabetes mellitus with diabetic polyneuropathy; Z79.4 Long term (current) use of insulin; J44.9 Chronic obstructive pulmonary disease, unspecified; E03.9 Hypothyroidism, unspecified; Z66 Do not resuscitate
CPT/HCPCS: 99349

== ENCOUNTER 2021-08-08 15:40 | Outpatient (CLI) | payer MEDICARE | END 2021-08-08 15:41 | disposition critical access hospital (66) | LOC: EMS 15:40 | DX: R06.02 Shortness of breath (principal); J44.9 Chronic obstructive pulmonary disease, unspecified | CPT/HCPCS: A0425; A0427 ==

== ENCOUNTER 2021-08-08 15:42 | Emergency (ER) | payer MEDICARE ==
[2021-08-08] MEDS ORDERED: predniSONE 20 MG TABLET PO STA (15:56)
--- NOTE | 2021-08-08 16:00 | ED Physician Documentation ---
History of Present Illness - Stated complaint Stated Complaint: SOA - History obtained from History obtained from: Patient, EMS - Additonal information Additional information: The patient comes to the emergency department via EMS for chief complaint of dyspnea. She states she is chronically dyspneic, due to COPD, and uses 3 to 5 L of home oxygen per nasal cannula [id number]. However, she states since yesterday, she feels as though her she is more short of breath than usual. The patient states that her allergies have been very bad this year and she thinks that may be a trigger. The medics state that they found the patient on an oxygen concentrator with a very very long length of oxygen tubing, and she was registering oxygen saturation of 84% on her usual oxygen. However, when they transferred her to their tubing and their oxygen, the patient was found to be in the low 90s on the same amount of oxygen. The patient was given a DuoNeb in route and seemed to improve somewhat. She states she feels "a little better. The patient denies fevers. No sick contacts. She lives at home with her family. She has a history of CHF as well as the COPD. She states she quit smoking about 30 years ago. No increased swelling in her legs. No chest pain. No abdominal pain or vomiting. The patient denies coughing any more than usual. She states she is a DNR, and wants only "selective" work-up and treatment done. The patient states she is COVID vaccinated. Review of Systems Ten Systems: 10 systems reviewed and negative Constitutional: reports: Reviewed and negative Eyes: reports: Reviewed and negative Ears: reports: Reviewed and negative Nose: reports: Reviewed and negative Throat: reports: Reviewed and negative Cardiac: reports: Reviewed and negative Respiratory: reports: Reviewed and negative GI: reports: Reviewed and negative : reports: Reviewed and negative Skin: reports: Reviewed and negative Musculoskeletal: reports: Reviewed and negative Neurologic: reports: Reviewed and negative Psychiatric: reports: Reviewed and negative Endocrine: reports: Reviewed and negative Immunocompromised: reports: Reviewed and negative PD PAST MEDICAL HISTORY - Past Medical History Cardiovascular: Congestive heart failure (Diastolic dysfunction), Hypertension, High cholesterol, Coronary artery disease, [place], Other (Pulmonary HTN) Respiratory: COPD (on 3L via NC of supplemental oxygen), Shortness of breath, Sleep apnea (does not wear a CPAP), Other Neuro: None Endocrine/Autoimmune: Type 2 diabetes, HyPOthyroidism GI: None INDUSTRIAL HYGENIST: Other () : Frequency HEENT: Chronic sinusitis, Chronic hearing loss Psych: Anxiety Musculoskeletal: Fatigue Derm: Other drug resistant infections - Past Surgical History Past Surgical History: Yes /INDUSTRIAL HYGENIST: Hysterectomy (at age 29) HEENT: Cataracts, Tonsil/Adenoidectomy Derm: Debridement - Present Medications Home Medications: Ambulatory Orders Medication Instructions Recorded Confirmed Spironolactone [Aldactone] 25 mg PO DAILY #30 tablet 12/28/17 08/08/21 Ascorbic Acid [Vitamin C] 1,000 mg PO DAILY 12/20/18 08/08/21 Calcium Carbonate [Calcium] 500 mg PO BID 12/20/18 08/08/21 Cholecalciferol (Vitamin D3) 1,000 unit PO DAILY 12/20/18 08/08/21 [Vitamin D3] Garlic 1,000 mg PO DAILY 12/20/18 08/08/21 Loratadine 10 mg PO DAILY 12/20/18 08/08/21 Multivitamin [Multivitamins] 1 each PO DAILY 12/20/18 08/08/21 PARoxetine HCL [Paroxetine HCl] 40 mg PO DAILY 04/02/19 08/08/21 Cranberry 1 cap PO DAILY 05/11/20 08/08/21 Furosemide 40 mg PO .SUNMONWEDFRI 05/11/20 08/08/21 Vitamin B12 1 cap PO DAILY 05/11/20 08/08/21 D Mann[place] 500 mg PO TID 04/14/21 08/08/21 Levothyroxine [Synthroid] 1 tab PO QDAC 07/26/21 08/08/21 Insulin Detemir [Levemir] 08/08/21 Insulin Detemir [Levemir] 37 unit SUBQ BID 08/08/21 08/08/21 Pregabalin [Lyrica] 25 mg PO HS 08/08/21 08/08/21 predniSONE [Deltasone] 60 mg PO DAILY 5 Days #15 tablet 08/08/21 - Allergies Allergies/Adverse Reactions: Allergies Allergy/AdvReac Type Severity Reaction Status Date / Time codeine Allergy Unknown Verified 03/25/21 13:28 - Social History Does the pt smoke?: No Smoking Status: Former smoker Does the pt drink ETOH?: No Does the pt have substance abuse?: No - Immunizations Immunizations are current?: Yes - POLST Patient has POLST: Yes POLST Status: DNR PD ED PE NORMAL - Vitals Vital signs reviewed: Yes - General General: Alert and oriented X 3, No acute distress (Speaking in full sentences without difficulty.), Well developed/nourished - HEENT HEENT: Atraumatic, PERRL, EOMI, Moist mucous membranes - Neck Neck: Supple, no meningeal sign - Cardiac Cardiac: RRR, No murmur, Strong equal pulses - Respiratory Respiratory: No respiratory distress, Other (Moderately decreased air movement bilaterally. No wheezing or rhonchi. 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 Findings suggestive of CHF with interstitial pulmonary edema.) PD MEDICAL DECISION MAKING - ED course Complexity details: reviewed results, re-evaluated patient, considered differential, d/w patient ED course: The patient was treated with a DuoNeb and prednisone, and worked up with x-ray and Covid test. X-ray showed some interstitial and pulmonary edema, and patient was given a dose of Lasix in the emergency department for this. She was feeling much better after the DuoNeb and prednisone and stated she would like to go home. I felt this was reasonable. The patient is on Lasix at home and should continue this. I have advised her to use her nebulizer every 4 hours which she has not been doing. I have prescribed her a course of prednisone, as well. We have discussed home management of the symptoms and the usual indications for return. Departure - Departure Disposition: 01 Home, Self Care Clinical Impression: COPD exacerbation CHF exacerbation Qualifiers: Heart failure type: unspecified Qualified Code(s): I50.9 - Heart failure, unspecified Condition: Stable Instructions: ED COPD Flare, ED CHF General Prescriptions: predniSONE [Deltasone] 60 mg PO DAILY 5 Days #15 tablet Comments: You have been treated with a nebulizer treatment, a dose of steroids, and a little extra diuretic to help with your COPD and congestive heart failure. Please have your caregivers pickling machine operator your steroid prescription at the pharmacy tomorrow. You should use your nebulizer machine every 4 hours while you are having this COPD flare, to help keep your airways open.
[2021-08-08] MEDS: IPRATROPIUM/ALBUTEROL 3 ML NEB INH STA ×3 (16:18→18:18)
--- NOTE | 2021-08-08 16:39 | XRAY Report ---
PROCEDURE: Chest 1 View X-Ray INDICATIONS: chest pain TECHNIQUE: One view of the chest was acquired. COMPARISON: 03/25/2021 FINDINGS: Surgical changes and devices: None. Lungs and pleura: Diffusely increased interstitial thickening bilaterally, left greater than right wi th possible confluent left lateral upper lobe alveolar opacity. Mediastinum: Mediastinal contours are stable. Central vasculature is indistinct. Heart size is partia lly obscured by low lung volumes. Bones and chest wall: No suspicious bony lesions. Overlying soft tissues appear unremarkable. IMPRESSION: 1. Diffuse interstitial thickening with possible alveolar opacity in the left midlung. Findings sugge stive of CHF with interstitial and pulmonary edema. 2. No significant pleural effusion. Reviewed by: Ryann Rodriguez MD on 08/08/2021 4:38 PM PST Approved by: Ryann Rodriguez MD on 08/08/2021 4:38 PM PST Station ID: [id number]
[2021-08-08] MEDS ORDERED: FUROSEMIDE 20 MG TABLET PO STA (16:52)
[2021-08-08 18:20] VITALS: BP 156/70
== END 2021-08-08 19:19 | disposition home or self-care (01) ==
LOC: EDUNIT# → ED 15:42
DX: J44.1 Chronic obstructive pulmonary disease with (acute) exacerbation (principal); Z99.81 Dependence on supplemental oxygen; I50.9 Heart failure, unspecified; I11.0 Hypertensive heart disease with heart failure; I50.32 Chronic diastolic (congestive) heart failure; E11.9 Type 2 diabetes mellitus without complications; Z87.891 Personal history of nicotine dependence
CPT/HCPCS: 71045; 94640; 94664; 99284; A9270; J7512; U0004

== ENCOUNTER 2021-08-09 02:32 | Outpatient (CLI) | payer MEDICARE | END 2021-08-09 02:33 | disposition critical access hospital (66) | LOC: EMS 02:32 | DX: R06.02 Shortness of breath (principal); Z99.81 Dependence on supplemental oxygen; J44.9 Chronic obstructive pulmonary disease, unspecified; I50.9 Heart failure, unspecified; R53.81 Other malaise; R61 Generalized hyperhidrosis | CPT/HCPCS: A0425; A0429 ==

== ENCOUNTER 2021-08-09 03:01 | Emergency (ER) | payer MEDICARE ==
--- NOTE | 2021-08-09 03:13 | ED Physician Documentation ---
PD HPI DYSPNEA - Stated complaint Stated Complaint: SOA, RESTLESS, DIABETIC ISSUE, COPD, CHF - Chief complaint Chief Complaint: Resp - History obtained from History obtained from: Patient, EMS - History of Present Illness Timing - onset: How many days ago (has had increasing dyspnea for past 2-3 days.) Timing - onset during: Light activity Timing - duration: Days (2-3) Timing - details: Gradual onset, Still present Inciting event(s): URI (some congestion and dyspnea/cough. Feeling short of breath with her usual oxygen level at home.). No: Out of meds Improved by: O2 (increased her baseline oxygen from 3.5 to 4 and did help. She states does not use home MDIs/nebulizers.) Worsened by: Exertion, Coughing Associated symptoms: Cough, Wheezing. No: Fever, Bilateral edema Similar symptoms before: Diagnosis (COPD and CHF in the past. Family told EMS that patient gets this way with UTIs at times.) Recently seen: Emergency Dept (earlier today (about 12 hours ago) for similar symptoms. Improved with nebulizer and extra lasix.), Other (seen by Palliative Care 2 weeks ago for regular visit. Had gabapentin dose increased. Otherwise same meds/treatments.) Review of Systems Constitutional: reports: Myalgias, Fatigue. denies: Fever, Chills Nose: reports: Congestion. denies: Rhinorrhea / runny nose Throat: denies: Sore throat Cardiac: denies: Chest pain / pressure, Palpitations, Calf pain Respiratory: reports: Dyspnea, Cough, Wheezing GI: denies: Vomiting, Diarrhea Neurologic: reports: Generalized weakness. denies: Near syncope PD PAST MEDICAL HISTORY - Past Medical History Cardiovascular: Congestive heart failure (Diastolic dysfunction), Hypertension, High cholesterol, Coronary artery disease, [place], Other (Pulmonary HTN) Respiratory: COPD (on 3L via NC of supplemental oxygen), Shortness of breath, Sleep apnea (does not wear a CPAP), Other Neuro: None Endocrine/Autoimmune: Type 2 diabetes, HyPOthyroidism GI: None LEAD PRESSER: Other () : Frequency HEENT: Chronic sinusitis, Chronic hearing loss Psych: Anxiety Musculoskeletal: Fatigue Derm: Other drug resistant infections - Past Surgical History Past Surgical History: Yes /LEAD PRESSER: Hysterectomy (at age 29) HEENT: Cataracts, Tonsil/Adenoidectomy Derm: Debridement - Present Medications Home Medications: Ambulatory Orders Medication Instructions Recorded Confirmed Spironolactone [Aldactone] 25 mg PO DAILY #30 tablet 12/28/17 08/09/21 Ascorbic Acid [Vitamin C] 1,000 mg PO DAILY 12/20/18 08/09/21 Calcium Carbonate [Calcium] 500 mg PO BID 12/20/18 08/09/21 Cholecalciferol (Vitamin D3) 1,000 unit PO DAILY 12/20/18 08/09/21 [Vitamin D3] Garlic 1,000 mg PO DAILY 12/20/18 08/09/21 Loratadine 10 mg PO DAILY 12/20/18 08/09/21 Multivitamin [Multivitamins] 1 each PO DAILY 12/20/18 08/09/21 PARoxetine HCL [Paroxetine HCl] 40 mg PO DAILY 04/02/19 08/09/21 Cranberry 1 cap PO DAILY 05/11/20 08/09/21 Furosemide 40 mg PO .SUNMONWEDFRI 05/11/20 08/09/21 D [place] 500 mg PO TID 04/14/21 08/09/21 Levothyroxine [Synthroid] 1 tab PO QDAC 07/26/21 08/09/21 Insulin Detemir [Levemir] 37 unit SUBQ BID 08/08/21 08/09/21 Pregabalin [Lyrica] 25 mg PO HS 08/08/21 08/09/21 Albuterol Sulf [Ventolin Hfa 2 - 3 puffs INH QID #1 inhaler 08/09/21 Inhaler] Aspirin EC [Ecotrin] 81 mg PO DAILY 08/09/21 08/09/21 Insulin Regular Human [NovoLIN R] 28 units SQ TID 08/09/21 08/09/21 Levothyroxine Sodium 75 mcg PO DAILY 08/09/21 08/09/21 [Levothyroxine] Lovastatin 40 mg PO DAILY 08/09/21 08/09/21 carvediloL [Coreg] 3.125 mg PO DAILY 08/09/21 08/09/21 cephALEXin [Keflex] 500 mg PO TID #20 cap 08/09/21 dexAMETHasone [Decadron] 4 mg PO DAILY #5 tablet 08/09/21 lisinopriL [Lisinopril] 5 mg PO DAILY 08/09/21 08/09/21 - Allergies Allergies/Adverse Reactions: Allergies Allergy/AdvReac Type Severity Reaction Status Date / Time codeine Allergy Unknown Verified 08/09/21 03:06 - Social History Does the pt smoke?: No Smoking Status: Former smoker Does the pt drink ETOH?: No Does the pt have substance abuse?: No - Immunizations Immunizations are current?: Yes - POLST Patient has POLST: Yes POLST Status: DNR PD ED PE NORMAL - Vitals Vital signs reviewed: Yes - General General: Alert and oriented X 3, Well developed/nourished, Other (some dyspnea with complete sentences. prefers sitting upright. ) - Neck Neck: Supple, no meningeal sign, No adenopathy - Cardiac Cardiac: RRR, No murmur - Respiratory Respiratory: No: Clear bilaterally (scattered wheezes with expiration. No coarse sounds. ) - Abdomen Abdomen: Soft, Non tender - Derm Derm: Normal color, Warm and dry - Extremities Extremities: Normal ROM s pain, No edema, No calf tenderness / cord - Neuro Neuro: Alert and oriented X 3, No motor deficit, Normal speech Results - Vitals Vitals: Vital Signs - 24 hr 08/09/21 08/09/21 08/09/21 03:06 03:15 03:30 Temperature 36.2 C L Heart Rate 96 90 94 Respiratory 21 15 16 Rate Blood Pressure 185/89 H 185/89 H O2 Saturation 96 97 08/09/21 08/09/21 04:00 05:04 Temperature Heart Rate 88 Respiratory 17 18 Rate Blood Pressure 145/85 H O2 Saturation 97 Oxygen O2 Source [] Nasal cannula O2 Source Nasal cannula Oxygen Flow Rate 4 - Labs Labs: Laboratory Tests 08/09/21 08/09/21 08/09/21 03:16 03:16 03:16 WBC 9.9 RBC 4.04 L Hgb 12.2 Hct 38.4 MCV 95.0 MCH 30.2 MCHC 31.8 L RDW 12.1 Plt Count 308 MPV 9.7 Neut # (Auto) 7.9 H Lymph # (Auto) 1.3 L Kimble # (Auto) 0.6 Eos # (Auto) 0.0 Baso # (Auto) 0.0 Absolute Nucleated RBC 0.00 Nucleated RBC % 0.0 Sodium 135 Potassium 4.9 Chloride 92 L Carbon Dioxide 30 Anion Gap 13.0 BUN 44 H Creatinine 1.3 H Estimated GFR (MDRD) 39 L Glucose 368 H Calcium 10.1 Total Bilirubin 0.5 AST 56 H ALT 37 Alkaline Phosphatase 93 B-Natriuretic Peptide 325 H Total Protein 7.9 Albumin 3.9 Globulin 4.0 Albumin/Globulin Ratio 1.0 Lipase 34 Urine Color Urine Clarity Urine pH Ur Specific [place] Urine Protein Urine Glucose (UA) Urine Ketones Urine Occult Blood Urine Nitrite Urine Bilirubin Urine Urobilinogen Ur Leukocyte Esterase Urine RBC Urine WBC Ur Squamous Epith Cells Urine Bacteria Ur Microscopic Review Urine Culture Comments 08/09/21 04:51 WBC RBC Hgb Hct MCV MCH MCHC RDW Plt Count MPV Neut # (Auto) Lymph # (Auto) Kimble # (Auto) Eos # (Auto) Baso # (Auto) Absolute Nucleated RBC Nucleated RBC % Sodium Potassium Chloride Carbon Dioxide Anion Gap BUN Creatinine Estimated GFR (MDRD) Glucose Calcium Total Bilirubin AST ALT Alkaline Phosphatase B-Natriuretic Peptide Total Protein Albumin Globulin Albumin/Globulin Ratio Lipase Urine Color YELLOW Urine Clarity CLEAR Urine pH 5.5 Ur Specific [place] 1.020 Urine Protein 30 H Urine Glucose (UA) NEGATIVE Urine Ketones NEGATIVE Urine Occult Blood NEGATIVE Urine Nitrite POSITIVE H Urine Bilirubin NEGATIVE Urine Urobilinogen 0.2 (NORMAL) Ur Leukocyte Esterase MODERATE H Urine RBC None Seen Urine WBC 11-25 H Ur Squamous Epith Cells RARE Squamous Urine Bacteria Moderate H Ur Microscopic Review INDICATED Urine Culture Comments INDICATED - Rads (name of study) chest xray Radiology: Prelim report reviewed (interstitial changes likely c/w CHF.), See rad report PD MEDICAL DECISION MAKING - ED course Complexity details: re-evaluated patient (The patient had reasonable diuresis with some IV Lasix. She did feel improved with nebulizer as well. She had received some steroids just last afternoon and so no further were given at this time. Remains with good sats on her usual NC 4 lpm. Unlabored breathing. Stable and improved for discharge. ), considered differential, d/w patient Departure - Departure Disposition: 01 Home, Self Care Clinical Impression: Dyspnea, Acute exacerbation of CHF (congestive heart failure), Moderate COPD (chronic obstructive pulmonary disease), UTI (urinary tract infection) Follow-Up: Mariam Puente ARNP, [employer] [Provider Admit Priv/Credential] - Prescriptions: dexAMETHasone [Decadron] 4 mg PO DAILY #5 tablet cephALEXin [Keflex] 500 mg PO TID #20 cap Albuterol Sulf [Ventolin Hfa Inhaler] 2 - 3 puffs INH QID #1 inhaler Comments: Your chest xray and lab tests suggest some fluid overload (exacerbation of CHF). I would suggest taking your furosemide diuretic regularly for the next 3 days at double the usual dose. Then after that you can resume your usual dosing regimen. You did have wheezing with breathing as well, so there could be some element of COPD exacerbation. You were prescribed a steroid on your visit yesterday (it was printed for you with your discharge instructions). Nevermind the printed script; I transmitted a script for this to the Pharmacy instead. I also transmitted a script for Albutero linhaler. Use 2-3 puffs with the provided spacer 4 times daily for the next week. Your urine test does show some signs of UTI. I imagine it would show that often/most of the time, if one were to look. It happens to get tested when you are not feeling well/trouble breathing, and so it gets discovered. It likely does not have connection with your current trouble breathing. You can take an antibiotic for it and I transmitted script for cephalexin to the pharmacy as well. I transmitted your scripts to [facility] in [place]. Recheck/return if not improved well over the next few days and sooner if worse. Continue your usual oxygen level. Your sats are good here on your usual home amount.
[2021-08-09] MEDS ORDERED: IPRATROPIUM/ALBUTEROL 3 ML NEB INH STA (03:18)
[2021-08-09 03:24] LABS: BASOPHILS % (AUTO) 0.4 %; HCT - HEMATOCRIT 38.4 % (37.0-47.0); HGB - HEMOGLOBIN 12.2 g/dL (12.0-16.0); LYMPHOCYTES # (AUTO) 1.3 10^3/uL (1.5-3.5); LYMPHOCYTES % (AUTO) 13.2 %; MEAN CORPUSCULAR HEMOGLOBIN 30.2 pg (27.0-31.0); MEAN CORPUSCULAR HGB CONC 31.8 g/dL (32.0-36.0); MEAN PLATELET VOLUME 9.7 fL (7.9-10.8); MONOCYTES # (AUTO) 0.6 10^3/uL (0.0-1.0); MONOCYTES % (AUTO) 5.6 %; NEUTROPHILS # (AUTO) 7.9 10^3/uL (1.5-6.6); NEUTROPHILS % (AUTO) 80.1 %; PLT - PLATELET COUNT 308 10^3/uL (130-450); RED BLOOD COUNT 4.04 10^6/uL (4.20-5.40); RED CELL DISTRIBUTION WIDTH 12.1 % (12.0-15.0); WHITE BLOOD COUNT 9.9 x10^3/uL (4.8-10.8)
[2021-08-09 03:34] LABS: ALBUMIN 3.9 g/dL (3.2-5.5); BILIRUBIN,TOTAL 0.5 mg/dL (0.2-1.0); CALCIUM 10.1 mg/dL (8.5-10.3); CREATININE 1.3 mg/dL (0.4-1.0); POTASSIUM 4.9 mmol/L (3.5-5.0); TOTAL PROTEIN 7.9 g/dL (6.7-8.2)
[2021-08-09] MEDS ORDERED: FUROSEMIDE 40 MG/4 ML VIAL IVP STA (03:55)
[2021-08-09 04:58] LABS: BILIRUBIN,URINE NEGATIVE (NEGATIVE); CLARITY,URINE CLEAR (CLEAR); GLUCOSE, URINE (UA) NEGATIVE (NEGATIVE); KETONES,URINE (UA) NEGATIVE (NEGATIVE); LEUKOCYTE ESTERASE, URINE MODERATE (NEGATIVE); NITRITE,URINE POSITIVE (NEGATIVE); OCCULT BLOOD,URINE NEGATIVE (NEGATIVE); PH,URINE 5.5 PH (5.0-7.5); PROTEIN,URINE 30 mg/dL (NEGATIVE); UROBILINOGEN,URINE 0.2 (NORMAL) E.U./dL (NORMAL)
[2021-08-09 05:03] LABS: RBC,URINE None Seen /HPF (0-5); SQUAMOUS EPITHELIAL CELL,UR RARE Squamous (<= Few)
[2021-08-09 05:04] LABS: BACTERIA,URINE Moderate /HPF (None Seen)
[2021-08-09] MEDS ORDERED: cefTRIAXone 1 GM VIAL IVP STA (05:05)
[2021-08-09 07:16] VITALS: BP 154/74
--- NOTE | 2021-08-09 08:16 | XRAY Report ---
PROCEDURE: Chest 1 View X-Ray INDICATIONS: chest pain TECHNIQUE: One view of the chest was acquired. COMPARISON: 08/08/2021. FINDINGS: Surgical changes and devices: None. Lungs and pleura: No pleural effusions or pneumothorax. Bilateral lung interstitial prominence and a lveolar opacities not significant changed compared to. Mediastinum: Mediastinal contours appear normal. Heart size is normal. Bones and chest wall: No suspicious bony lesions. Overlying soft tissues appear unremarkable. IMPRESSION: Persistent bilateral lung interstitial prominence and alveolar opacities which could represent pulmon arthur edema or atypical pneumonia. Reviewed by: Trini Diana MD, PhD on 08/09/2021 8:15 AM PST Approved by: Trini Diana MD, PhD on 08/09/2021 8:15 AM PST Station ID: [id number]
== END 2021-08-09 09:30 | disposition home or self-care (01) ==
LOC: EDUNIT# → ED 03:01
DX: I11.0 Hypertensive heart disease with heart failure (principal); I50.31 Acute diastolic (congestive) heart failure; J44.9 Chronic obstructive pulmonary disease, unspecified; Z99.81 Dependence on supplemental oxygen; E11.9 Type 2 diabetes mellitus without complications; Z79.4 Long term (current) use of insulin; Z87.891 Personal history of nicotine dependence; N39.0 Urinary tract infection, site not specified
CPT/HCPCS: 36415; 80053; 81001; 81003; 83690; 83880; 85025; 87086; 87181; 93005; 94640; 94664; 96374; 96375; 99283

== ENCOUNTER 2021-08-12 11:35 | Outpatient (CLI) | payer MEDICARE ==
--- NOTE | 2021-08-12 18:42 | CONSULTATION NOTE ---
Palliative Care Follow Up - Referral Referring Provider: Dr. Tia Callahan Time of Visit: [id number] Referral setting: Home Referral Reason: COPD and CHF excerbation/UTI/Neuropathy due to DM - Information Sources Records reviewed: Previous records reviewed History/Review of Systems obtained from: Patient, Caregiver (Vandana) Exam limitations: Clinical condition (visual impairment and needs magnifier for fine print) - History of Present Illness Update Brief HPI Update: This is an 85-year-old female who is seen in follow-up today after emergency department visit on 08/08 and 09/08 for urinary tract infection, COPD and CHF exacerbation as well as follow-up regarding neuropathy to her bilateral lower extremities with her caregiver, Vandana present. Provider were N95 mask. The patient presented to the emergency department with increased shortness of breath above her baseline. On initial presentation on 08/08 she was treated with a nebulizer treatment, a dose of steroids and an additional dose of Lasix while in the emergency department as a chest x-ray demonstrated CHF with interstitial pulmonary edema. She was discharged home with prednisone 60 mg once daily x5 days. However, upon returning home she remained shortness of breath and promptly returned on 08/09 where lab work was performed that demonstrated a UTI and she was discharged with cephalexin course, dexamethasone 4 mg daily x5 days, and doubling of her Lasix x3 days and returning to her usual dosage of Lasix 40 mg every other day. She also continues on spironolactone 25 mg daily. Patient initially had elevated blood glucose levels above her typical baseline always below 300. She has not been following sliding scale Novolin R as previously recommended to her and typically has been giving 25 units at times. Today, blood glucose level was 125. She continues on Levemir 32 units twice daily. She denies any wheezing, coughing, or dyspnea. She is no longer sleeping in her recliner and was able to sleep in her own bed last night. She feels much better than she has in the last few days. She is also utilizing her albuterol inhaler 2 puffs 3 times a day as previously recommended by this ROOFER APPLICATOR. Patient has a history of neuropathy due to diabetes mellitus that has been present for the last 15 to 20 years. Last hemoglobin A1c 7.6% on 04/14/2021. She does have a history of diabetic retinopathy. When attempted to titrate up her gabapentin to 300 mg in the evening she did not feel right and therefore this was reduced and the patient transition to pregabalin 25 mg nightly in the end of July 2021 and gabapentin was discontinued. The patient feels that pregabalin is extremely effective. She no longer has neuropathy up to her knees. She does put some numbness to her toes that feel like "they have socks on them." Past Medical History: Patient has a past medical history of congestive heart failure is diastolic dysfunction, CHF exacerbation 08/2021, hypertension, hyperlipidemia, coronary artery disease, NH, pulmonary hypertension, COPD on supplemental oxygen, COPD exacerbation 08/2021 sleep apnea but does not wear CPAP, morbid obesity, depression, diabetes mellitus type 2, hypothyroidism, chronic hearing loss, anxiety, fatigue, necrotizing fasciitis of the right abdominal wall secondary to MRSA in 2019. +COVID 19 vaccine. Social History - Living Situation Living arrangement: At home Living Situation: With caregiver(s) (friend/caregiver Vandana and her , Terrence) Support System: Patient has been since 1989 after her of an NH. 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 The patient had 6 children, 3 boys and 3 girls. She presently only has 2 remaining children that are alive, a boy and a girl. The patient has Vandana who serves as her primary caregiver and has additional assistance from Vandana's , Terrence. Vandana's contact number is [phone]. Medications/Allergies - Medications Home Medications: Ambulatory Orders Medication Instructions Recorded Confirmed Spironolactone [Aldactone] 25 mg PO DAILY #30 tablet 12/28/17 08/09/21 Ascorbic Acid [Vitamin C] 1,000 mg PO DAILY 12/20/18 08/09/21 Calcium Carbonate [Calcium] 500 mg PO BID 12/20/18 08/09/21 Cholecalciferol (Vitamin D3) 1,000 unit PO DAILY 12/20/18 08/09/21 [Vitamin D3] Garlic 1,000 mg PO DAILY 12/20/18 08/09/21 Loratadine 10 mg PO DAILY 12/20/18 08/09/21 Multivitamin [Multivitamins] 1 each PO DAILY 12/20/18 08/09/21 PARoxetine HCL [Paroxetine HCl] 40 mg PO DAILY 04/02/19 08/09/21 Cranberry 1 cap PO DAILY 05/11/20 08/09/21 Furosemide 40 mg PO DAILY 05/11/20 08/09/21 D Mannose 500 mg PO TID 04/14/21 08/09/21 Levothyroxine [Synthroid] 1 tab PO QDAC 07/26/21 08/09/21 Insulin Detemir [Levemir] 32 unit SUBQ BID 08/08/21 08/09/21 Pregabalin [Lyrica] 25 mg PO HS 08/08/21 08/09/21 Aspirin EC [Ecotrin] 81 mg PO DAILY 08/09/21 08/09/21 Insulin Regular Human [NovoLIN R] 18 - 28 units SQ TID 08/09/21 08/09/21 Levothyroxine Sodium 75 mcg PO DAILY 08/09/21 08/09/21 [Levothyroxine] Lovastatin 40 mg PO DAILY 08/09/21 08/09/21 carvediloL [Coreg] 3.125 mg PO DAILY 08/09/21 08/09/21 cephALEXin [Keflex] 500 mg PO TID #20 cap 08/09/21 dexAMETHasone [Decadron] 4 mg PO DAILY #5 tablet 08/09/21 lisinopriL [Lisinopril] 5 mg PO DAILY 08/09/21 08/09/21 Albuterol Sulf [Ventolin Hfa 2 puffs INH TID MDD x5 days 08/12/21 Inhaler] - Allergies Allergies/Adverse Reactions: Allergies Allergy/AdvReac Type Severity Reaction Status Date / Time codeine Allergy Unknown Verified 08/09/21 03:06 Review of Systems - Constitutional Constitutional: reports: Other (weight stable per patient report without noted weight loss). denies: Fever, Poor appetite - Eyes Eyes: reports: Vision loss (seeing retinal specialist with f/u August 2021), Corrective lenses - Ears, Nose & Throat Ears, Nose & Throat: reports: Dentures. denies: Hearing loss - Cardiovascular Cardiovascular: denies: Palpitations, Edema (had prior to ED visits to [facility] which is not patient's typical baseline) - Respiratory Respiratory: reports: SOB with exertion, Other (supplemental oxygen in place). denies: Cough, Wheezing, SOB at rest - Gastrointestinal Gastrointestinal: reports: Good appetite. denies: Abdominal pain, Constipation (daily bowel movement reported), Vomiting - Genitourinary Genitourinary: denies: Dysuria, Frequency, Hematuria - Musculoskeletal Musculoskeletal: reports: Assistive devices - Integumentary Integumentary: denies: Rash - Neurological Neurological: reports: General weakness, Other (neuropathy to feet--improved with pregabalin, see HPI). denies: Memory problems - Psychiatric Psychiatric: reports: Depression - Endocrine Endocrine: reports: Diabetes type 2 (04/2021 HgA1C 7.6%), Hypothyroidism - Hematologic/Lymphatic Hematologic/Lymph: reports: Recurrent infections (Urinary tract infection, last UTI 01/11/2021, 03/25/2021, 08/09/2021) - All Other Systems All Other Systems: reports: Reviewed and negative Physical Exam - Vital Signs Temperature: 36.2 C Pulse Rate: 70 O2 Saturation: 94 (on 3.5L) Blood Pressure: 123/69 - Physical Exam General Appearance: positive: No acute distress, Alert, Other (morbidily obese and appears younger than stated age) Eyes Bilateral: positive: Normal inspection, Other (+corrective lenses) ENT: positive: No signs of dehydration Neck: positive: Trachea midline Cardiovascular: positive: Regular rate & rhythm, Other (distant heart sounds due to body habitus). negative: Systolic murmur Respiratory: positive: No respiratory distress, Rales (BLL, increased from usual baseline), Other (on supplemental oxygen via NC; able to speak in full sentances). negative: Wheezes Abdomen: positive: Non-tender, Soft, Nml bowel sounds, Obese Skin: positive: Dryness Extremities: positive: No pedal edema Neurologic/Psychiatric: positive: Oriented x3, Mood/affect nml Palliative Care - POLST Patient has POLST: Yes POLST Status: DNR, Selective Treatment Pain: No pain - Palliative Care Discussion: Patient presented to emergency room [id number] due to COPD and CHF exacerbation as well as urinary tract infection. She has had significant improvement since initiation of dexamethasone 4 mg daily, routine albuterol inhaler utilization and increase of her furosemide from baseline. Given the recent CHF exacerbation advised patient to increase her furosemide to 40 mg daily versus every other day once double dosing has been completed. Given she was placed on dexamethasone advised to monitor her blood glucose more closely and to perform adequate sliding scale and this was reviewed at length with patient and caregiver, Vandana. Given the patient's poor eyesight up close advised Vandana to assist with drawling up Novolin R. Continue Levemir 32 units twice daily. She is can complete her albuterol routine utilization 2 puffs 3 times a day on 08/14 and then use as needed. Patient has had significant improvement with her lower extremity neuropathy switching from gabapentin to pregabalin 25 mg nightly. Continue to encourage her to wear shoes with ambulation within the home setting to prevent injury. Results - Lab Results Lab results reviewed: Yes Lab and Imaging Results: 08/09/2021 labs Impression and Recommendations - Palliative Care Impression: This is a horacio 85-year-old female with a history of diabetes mellitus type 2, peripheral neuropathy due to diabetes mellitus status post COPD and CHF exacerbation on supplemental oxygen as well as urinary tract infection. Would benefit from dose increase of furosemide to 40 mg daily versus every other day dosing. Can pleat cephalexin as prescribed for urinary tract infection. Has benefited to transitioning to pregabalin 25 mg nightly for control of her neuropathy symptoms. Palliative care to continue provide support, care coordination, symptom management and anticipatory guidance as it is extremely taxing for the patient to leave her home environment. Recommendations/Counseling Done: 1. CHF exacerbation. Presented to the ED on 08/08 and 08/09. Complete double dose of furosemide and when completed then initiate furosemide 40 mg daily moving forward. Continue spironolactone 25 mg daily. Patient does not have any bilateral lower extremity edema and appears to be euvolemic at this time. Will obtain BMP at next evaluation to monitor potassium level. 2. COPD exacerbation. Patient has a history of COPD and no prior history of exacerbation. Is on supplemental oxygen at 3.5 L via nasal cannula. Complete dexamethasone 4 mg daily x5 days. Continue albuterol inhaler 2 puffs 3 times a day x5 days and then moving forward as needed every 4-6 hours for wheezing or shortness of breath. 3. Urinary tract infection. Can pleat cephalexin as prescribed until gone. No longer symptomatic. 4. Diabetic peripheral neuropathy to bilateral feet. Continue pregabalin 25 mg daily. Did not tolerate gabapentin with dose increases. Continue to encourage to wear shoes with ambulation. Continue to monitor. 5. Diabetes mellitus type 2. Longstanding history. Insulin-dependent. Patient aware to call if blood glucose levels are above 250 mg. Continue Levemir 32 units twice daily. Reviewed Novolin our sliding scale with meals as 18 units of blood glucose levels 150-200; 20 units of blood glucose level is 200-2 50; 23 units of blood glucose is 2 50-300, 28 units of blood glucose level is 300 and above. Caregiver, Vandana to assist with drawing up Novolin R. Last hemoglobin A1c 7.6% on 04/2021. Given the patient's advanced age and chronic comorbidities a gradual decline is expected. Continue to monitor. Total time spent 45 minutes with greater than 50% of the spent in counseling and coordination of care with the patient and caregiver; review of medication management; review of medication titration of Novolin R and Lasix; refill of prescriptions per patient request; symptom management and anticipatory guidance. Disclaimer: The chart note was formulated using voice recognition technology and unfortunately sound alike errors may occur.
== END 2021-08-12 11:36 | disposition home or self-care (01) ==
LOC: PC 11:35
PROVIDERS: ATTEND Nurse Practitioner Family
DX: Z51.5 Encounter for palliative care (principal); E11.42 Type 2 diabetes mellitus with diabetic polyneuropathy; I50.30 Unspecified diastolic (congestive) heart failure; J44.9 Chronic obstructive pulmonary disease, unspecified; N39.0 Urinary tract infection, site not specified; Z99.81 Dependence on supplemental oxygen; Z79.899 Other long term (current) drug therapy; Z79.4 Long term (current) use of insulin; Z66 Do not resuscitate
CPT/HCPCS: 99349

== ENCOUNTER 2021-08-27 11:28 | Outpatient (CLI) | payer MEDICARE | END 2021-08-27 11:29 | disposition critical access hospital (66) | LOC: EMS 11:28 | DX: R53.1 Weakness (principal); R06.09 Other forms of dyspnea; R53.83 Other fatigue; R05.9 Cough, unspecified; R73.9 Hyperglycemia, unspecified | CPT/HCPCS: A0425; A0427 ==

== ENCOUNTER 2021-08-27 11:59 | Emergency (ER) | payer MEDICARE ==
--- NOTE | 2021-08-27 12:11 | ED Physician Documentation ---
History of Present Illness - Stated complaint Stated Complaint: HIGH BLOOD SUGAR - Additonal information Additional information: 85-year-old female is brought to the emergency department for concerns of hyperglycemia as well as feeling generally poor. She has been seen and evalua evelyne multiple times recently in the emergency department as well as by palliative care for concerns of hyperglycemia, congestive heart failure and seemingly recurrent urinary tract infection. Prior to EMS arrival the patient had a blood glucose of 437. She was given an unknown dose of NovoLog at home and for EMS her blood sugars had declined to 304. EMS reports that she may not have taken her insulin yesterday Pt also reports that over the last few weeks she has taken lyrica, but often gets severe abdominal pain. For a while she tells me that her caregiver reported she had "really dark" stools, but over the last few days, they have turned normal She reports that over the last week she has had a worsening cough and shortness of breath. She is on baseline home O2 at 4 L. Oxygen saturations for EMS were 94%. Patient denies any fevers, no diarrhea or abdominal pain. She states that when she coughs she will sometimes forcefully vomit. Review of Systems Constitutional: denies: Fever, Chills Ears: reports: Reviewed and negative Throat: reports: Reviewed and negative Cardiac: denies: Chest pain / pressure, Palpitations Respiratory: reports: Dyspnea, Cough GI: reports: Vomiting. denies: Abdominal Pain : reports: Reviewed and negative Skin: reports: Reviewed and negative Musculoskeletal: reports: Reviewed and negative PD PAST MEDICAL HISTORY - Past Medical History Cardiovascular: Congestive heart failure (Diastolic dysfunction), Hypertension, High cholesterol, Coronary artery disease, [place], Other (Pulmonary HTN) Respiratory: COPD (on 3L via NC of supplemental oxygen), Shortness of breath, Sleep apnea (does not wear a CPAP), Other Neuro: None Endocrine/Autoimmune: Type 2 diabetes, HyPOthyroidism GI: None TIPPLE ENGINEER: Other () : Frequency HEENT: Chronic sinusitis, Chronic hearing loss Psych: Anxiety Musculoskeletal: Fatigue Derm: Other drug resistant infections - Past Surgical History Past Surgical History: Yes /TIPPLE ENGINEER: Hysterectomy (at age 29) HEENT: Cataracts, Tonsil/Adenoidectomy Derm: Debridement - Present Medications Home Medications: Ambulatory Orders Medication Instructions Recorded Confirmed Spironolactone [Aldactone] 25 mg PO DAILY #30 tablet 12/28/17 08/27/21 Ascorbic Acid [Vitamin C] 1,000 mg PO DAILY 12/20/18 08/27/21 Calcium Carbonate [Calcium] 500 mg PO BID 12/20/18 08/27/21 Cholecalciferol (Vitamin D3) 1,000 unit PO DAILY 12/20/18 08/27/21 [Vitamin D3] Garlic 1,000 mg PO DAILY 12/20/18 08/27/21 Loratadine 20 mg PO DAILY 12/20/18 08/27/21 Multivitamin [Multivitamins] 1 each PO DAILY 12/20/18 08/27/21 PARoxetine HCL [Paroxetine HCl] 40 mg PO DAILY PM 04/02/19 08/27/21 Cranberry 1 cap PO DAILY 05/11/20 08/27/21 D Mannose 500 mg PO TID 04/14/21 08/27/21 Levothyroxine [Synthroid] 112 mcg PO QDAC 07/26/21 08/27/21 Insulin Detemir [Levemir] 37 unit SUBQ BID 08/08/21 08/27/21 Pregabalin [Lyrica] 25 mg PO HS 08/08/21 08/09/21 Aspirin EC [Ecotrin] 81 mg PO DAILY 08/09/21 08/27/21 Insulin Regular Human [NovoLIN R] 18 - 28 units SQ TID 08/09/21 08/27/21 Levothyroxine Sodium 75 mcg PO DAILY 08/09/21 08/27/21 [Levothyroxine] Lovastatin 40 mg PO DAILY PM 08/09/21 08/27/21 carvediloL [Coreg] 3.125 mg PO DAILY 08/09/21 08/27/21 lisinopriL [Lisinopril] 5 mg PO DAILY 08/09/21 08/27/21 Albuterol Sulf [Ventolin Hfa 2 puffs INH TID MDD x5 days 08/12/21 08/27/21 Inhaler] Furosemide [Lasix] 40 mg PO DAILY 08/27/21 08/27/21 Omeprazole 40 mg PO DAILY #30 cap 08/27/21 - Allergies Allergies/Adverse Reactions: Allergies Allergy/AdvReac Type Severity Reaction Status Date / Time codeine Allergy Unknown Verified 08/27/21 12:07 - Social History Does the pt smoke?: No Smoking Status: Former smoker Does the pt drink ETOH?: No Does the pt have substance abuse?: No - Immunizations Immunizations are current?: Yes - POLST Patient has POLST: Yes POLST Status: DNR PD ED PE EXPANDED - General General: Alert, No acute distress - Neck Neck: Supple w/out meningeal sx - Cardiac Cardiac: Regular Rate, Murmur Present, Radial strong equal, Pedal strong equal, Cap refill < 2 sec - Respiratory Respiratory: Clear to ausultation mary. No: Distress, Labored - Abdomen Abdomen: Normal Bowel sounds, Other (Obese. Body habitus limits Abdominal exam). No: Tender to palpation - Derm Derm: Normal color, Warm and dry. No: Rash - Extremities Extremities: Normal. No: Deformity, Tenderness - Neuro Neuro: Alert and Oriented X 3, CNII-XII intact - GCS Eye Opening: Spontaneous Motor: Obeys Commands Verbal: Oriented Total: 15 Results - Vitals Vitals: Vital Signs - 24 hr 08/27/21 08/27/21 08/27/21 12:07 13:13 13:37 Temperature 36.3 C L Heart Rate 77 82 89 Respiratory 24 22 20 Rate Blood Pressure 136/65 H 108/83 H 126/48 L O2 Saturation 99 100 100 08/27/21 15:00 Temperature Heart Rate 82 Respiratory 19 Rate Blood Pressure 124/79 O2 Saturation 99 Oxygen O2 Source [] Nasal cannula O2 Source Nasal cannula - Labs Labs: Microbiology 08/27/21 13:31 Occult Blood - Final Stool Laboratory Tests 08/27/21 08/27/21 08/27/21 12:32 12:32 12:32 WBC 14.6 H RBC 2.50 L Hgb 7.7 L Hct 24.2 L MCV 96.8 MCH 30.8 MCHC 31.8 L RDW 13.3 Plt Count 352 MPV 9.7 Neut # (Auto) 10.9 H Lymph # (Auto) 1.7 [place] # (Auto) 1.7 H Eos # (Auto) 0.2 Baso # (Auto) 0.1 Absolute Nucleated RBC 0.00 Nucleated RBC % 0.0 Manual Slide Review Indicated Sodium 131 L Potassium 4.8 Chloride 89 L Carbon Dioxide 33 H Anion Gap 9.0 BUN 45 H Creatinine 1.5 H Estimated GFR (MDRD) 33 L Glucose 308 H Calcium 10.5 H Total Bilirubin 0.3 AST 28 ALT 26 Alkaline Phosphatase 100 B-Natriuretic Peptide 504 H Total Protein 7.2 Albumin 3.3 Globulin 3.9 Albumin/Globulin Ratio 0.8 L Lipase 30 Urine Color Urine Clarity Urine pH Ur Specific Geary Urine Protein Urine Glucose (UA) Urine Ketones Urine Occult Blood Urine Nitrite Urine Bilirubin Urine Urobilinogen Ur Leukocyte Esterase Ur Microscopic Review Urine Culture Comments Serum Ketones NEGATIVE 08/27/21 08/27/21 13:08 15:44 WBC 14.6 H RBC 2.50 L Hgb 7.8 L Hct 24.2 L MCV 96.8 MCH 31.2 H MCHC 32.2 RDW 13.4 Plt Count 343 MPV 9.5 Neut # (Auto) Lymph # (Auto) [place] # (Auto) Eos # (Auto) Baso # (Auto) Absolute Nucleated RBC Nucleated RBC % Manual Slide Review Sodium Potassium Chloride Carbon Dioxide Anion Gap BUN Creatinine Estimated GFR (MDRD) Glucose Calcium Total Bilirubin AST ALT Alkaline Phosphatase B-Natriuretic Peptide Total Protein Albumin Globulin Albumin/Globulin Ratio Lipase Urine Color YELLOW Urine Clarity CLEAR Urine pH 5.5 Ur Specific Geary 1.020 Urine Protein NEGATIVE Urine Glucose (UA) NEGATIVE Urine Ketones NEGATIVE Urine Occult Blood NEGATIVE Urine Nitrite NEGATIVE Urine Bilirubin NEGATIVE Urine Urobilinogen 0.2 (NORMAL) Ur Leukocyte Esterase NEGATIVE Ur Microscopic Review NOT INDICATED Urine Culture Comments NOT INDICATED Serum Ketones - Rads (name of study) CXR Radiology: Final report received (Cardiomegaly with increased interstitial ma rkings as seen on prior studies. Findings presumably represent pulmonary edema.) CT abd Radiology: Final report received (No acute finding in the abdomen or pelvis. Mi ldly distended gallbladder without CT findings of cholecystitis. Patchy airspace opacities in the left lung base with trace left pleural effusion) PD MEDICAL DECISION MAKING - ED course Complexity details: reviewed old records, reviewed results, re-evaluated patient, considered differential, d/w patient, d/w family ED course: 85-year-old female who has a history of hypertension and diabetes as well as heart failure presents to the emergency department for evaluation of simply feeling crummy over the last few days. She is recently been treated for a urinary tract infection. EMS reports that she missed her doses of insulin yesterday and was found to have a blood glucose this morning of 437. NovoLog was given prior to arrival. Patient is on home O2 at baseline of 4 L and this has not changed. Screening labs today are most significant for a drop in her hemoglobin of just over 4 g in the last 3 weeks. Patient had reported that she had dark stools recently though that has resolved. A stool guaiac here today was negative. In addition to that her laboratory findings do show an elevated BNP in comparison to previous. Chest x-ray also suggest some worsening pulmonary edema. Despite this she again has not had a change in baseline oxygen requirements. Patient was given an extra dose of Lasix here in the emergency department. Patient will be advised to increase her Lasix from 40 mg daily to 40 mg twice daily for the next 5 days.EMS had reported a blood glucose of 437 at home. They also reported the patient had missed her insulin dose yesterday evening. Though she does have elevated blood glucose here she does not appear to be in ketosis or acidosis. She is advised to continue taking diabetes meds and insulins as previously prescribed. A CT of her abdomen did not show any acute findings. I did discuss this case with our hospitalist Dr. Paul. Ideally the patient would be admitted to observation status in order to have an EGD completed but no surgical services are available here at [facility] today and all our outlying facilities along the [place] are full. I did do a repeat hemoglobin here in the emergency department and on repeat is essentially flat and stable at 7.8. She clinically does not need a blood transfusion today. Patient remains hemodynamically stable. She will be advised to begin taking omeprazole daily. I would like her labs to be redrawn within the next week. If there is a further decline she may then require a more emergent EGD or return to the ED Departure - Departure Disposition: 01 Home, Self Care Clinical Impression: Anemia Qualifiers: Anemia type: other cause Other causes of anemia: other cause, not classified Qualified Code(s): D64.89 - Other specified anemias CHF (congestive heart failure) Qualifiers: Heart failure type: unspecified Heart failure chronicity: chronic Qualified Code(s): I50.9 - Heart failure, unspecified Condition: Stable Follow-Up: Tai Callahan MD [Primary Care Provider] - Prescriptions: Omeprazole 40 mg PO DAILY #30 cap Comments: Deni tamez were seen today in the emergency department for not feeling well over the last few days, shortness of air as well as elevated blood glucose. It is important to continue to take your diabetes medicines and insulins as scheduled. I do recommend that you eat a diabetic diet that includes lean meats lots of vegetables and a few fruit. Your oxygen requirements have not changed which is important. Your x-ray does not show any pneumonia. Your labs today show a mildly elevated BNP. This is a lab that is used as a marker for heart failure. Because this is slightly more elevated than previous I would like you to increase your Lasix to 40 mg twice daily for the next 5 days. This should help with your shortness of air. The most significant finding on your labs today was a decreased hemoglobin to 7.8. You had expressed to me that over the last few weeks you have had some dark stools. When we checked your stool today there was no blood in it. We rechecked your hemoglobin and it was stable while here in the emergency department. I suspect that you may have had a gastrointestinal bleed at home. I would like you to start taking the omeprazole daily. This has been sent to your pharmacy in [facility]. It is important that your primary care doctor have your labs repeated at the end of next week. Your hemoglobin and blood chemistry should be redrawn. If despite taking the omeprazole or the increased dose of Lasix you feel that your symptoms are worsening, you develop any black or bloody stools then please return immediately to the ER
[2021-08-27 12:41] LABS: BASOPHILS # (AUTO) 0.1 10^3/uL (0.0-0.1); BASOPHILS % (AUTO) 0.3 %; EOSINOPHILS # (AUTO) 0.2 10^3/uL (0.0-0.7); EOSINOPHILS % (AUTO) 1.6 %; HCT - HEMATOCRIT 24.2 % (37.0-47.0); HGB - HEMOGLOBIN 7.7 g/dL (12.0-16.0); LYMPHOCYTES # (AUTO) 1.7 10^3/uL (1.5-3.5); LYMPHOCYTES % (AUTO) 11.5 %; MEAN CORPUSCULAR HEMOGLOBIN 30.8 pg (27.0-31.0); MEAN CORPUSCULAR HGB CONC 31.8 g/dL (32.0-36.0); MEAN CORPUSCULAR VOLUME 96.8 fL (81.0-99.0); MEAN PLATELET VOLUME 9.7 fL (7.9-10.8); MONOCYTES # (AUTO) 1.7 10^3/uL (0.0-1.0); MONOCYTES % (AUTO) 11.3 %; NEUTROPHILS # (AUTO) 10.9 10^3/uL (1.5-6.6); NEUTROPHILS % (AUTO) 74.8 %; PLT - PLATELET COUNT 352 10^3/uL (130-450); RED CELL DISTRIBUTION WIDTH 13.3 % (12.0-15.0); WHITE BLOOD COUNT 14.6 x10^3/uL (4.8-10.8)
[2021-08-27 12:43] LABS: SLIDE REVIEW? Indicated
--- NOTE | 2021-08-27 12:44 | XRAY Report ---
PROCEDURE: Chest 1 View X-Ray INDICATIONS: Chest pain TECHNIQUE: One view of the chest was acquired. COMPARISON: None FINDINGS: Surgical changes and devices: None. Lungs and pleura: Increased interstitial markings in both lungs. No focal consolidation. Mediastinum: Mediastinal contours appear normal. Cardiomegaly. Bones and chest wall: No suspicious bony lesions. Overlying soft tissues appear unremarkable. IMPRESSION: Cardiomegaly with increased interstitial markings as seen on numerous prior studies. Findings presuma eleazar represent pulmonary edema. Reviewed by: Raj Chao MD on 08/27/2021 12:43 PM PDT Approved by: Raj Chao MD on 08/27/2021 12:43 PM PDT Station ID: [id number]
[2021-08-27 12:54] LABS: ALBUMIN 3.3 g/dL (3.2-5.5); ALBUMIN/GLOBULIN RATIO 0.8 (1.0-2.2); ALKALINE PHOSPHATASE 100 IU/L (42-121); ALT ALANINE AMINOTRANSFERASE 26 IU/L (10-60); AST ASPARTATE AMINOTRANSFERASE 28 IU/L (10-42); BILIRUBIN,TOTAL 0.3 mg/dL (0.2-1.0); BUN - BLOOD UREA NITROGEN 45 mg/dL (6-20); CALCIUM 10.5 mg/dL (8.5-10.3); CARBON DIOXIDE - CO2 33 mmol/L (21-32); CHLORIDE 89 mmol/L (101-111); CREATININE 1.5 mg/dL (0.4-1.0); GFR - MDRD 33 (>89); GLUCOSE 308 mg/dL (70-100); LIPASE 30 U/L (22-51); POTASSIUM 4.8 mmol/L (3.5-5.0); SODIUM 131 mmol/L (135-145); TOTAL PROTEIN 7.2 g/dL (6.7-8.2)
[2021-08-27 13:17] LABS: BILIRUBIN,URINE NEGATIVE (NEGATIVE); GLUCOSE, URINE (UA) NEGATIVE (NEGATIVE); KETONES,URINE (UA) NEGATIVE (NEGATIVE); LEUKOCYTE ESTERASE, URINE NEGATIVE (NEGATIVE); NITRITE,URINE NEGATIVE (NEGATIVE); OCCULT BLOOD,URINE NEGATIVE (NEGATIVE); PH,URINE 5.5 PH (5.0-7.5); PROTEIN,URINE NEGATIVE (NEGATIVE); UROBILINOGEN,URINE 0.2 (NORMAL) E.U./dL (NORMAL)
[2021-08-27 13:18] LABS: CLARITY,URINE CLEAR (CLEAR)
[2021-08-27 13:19] LABS: KETONES, SERUM (ACETEST) NEGATIVE (NEGATIVE)
[2021-08-27] MEDS ORDERED: FUROSEMIDE 40 MG/4 ML VIAL IVP STA (13:22)
[2021-08-27] MEDS ORDERED: IOVERSOL 320 100 ML VIAL IVP ONE ×2 (14:23→14:41)
[2021-08-27] MEDS ORDERED: PANTOPRAZOLE 40 MG VIAL IVP STA (14:39)
--- NOTE | 2021-08-27 15:01 | CT Report ---
PROCEDURE: Abdomen/Pelvis W INDICATIONS: Acute anemia CONTRAST: IV CONTRAST: Optiray 320 ml: 100 PO CONTRAST: *NO PO CONTRAST TECHNIQUE: After the administration of intravenous contrast, 5 mm thick sections acquired from the diaphragms to the symphysis. 5 mm thick coronal and sagittal reformats were acquired. For radiation dose reducti on, the following was used: automated exposure control, adjustment of mA and/or kV according to selena ent size. COMPARISON: 03/31/2019 CT abdomen and pelvis FINDINGS: Image quality: Excellent. ABDOMEN: Lung bases: Patchy bilateral airspace opacities in both lung bases. Trace left pleural effusion. Hear t size is normal. Solid organs: Liver and spleen are normal in size and enhancement. Gallbladder mildly distended but otherwise normal. Biliary system is non dilated. Pancreas enhances normally. No adrenal nodules. Kidneys demonstrate normal size and enhancement, without hydronephrosis. Peritoneum and bowel: Bowel loops demonstrate normal wall thickness and caliber. No free fluid or a ir. Nodes and vessels: No retroperitoneal or mesenteric adenopathy by size criteria. Aorta and inferior vena cava are normal in size. Miscellaneous: No ventral hernias. PELVIS: Genitourinary: Bladder wall thickness is normal. Miscellaneous: No inguinal hernias or adenopathy. Bones: No suspicious bony lesions. No vertebral body compression fractures. IMPRESSION: No acute finding in the abdomen or pelvis. Mildly distended gallbladder without CT findings of cholecystitis. Patchy airspace opacities in the lung bases with trace left pleural effusion. Reviewed by: Raj Chao MD on 08/27/2021 2:59 PM PDT Approved by: Raj Chao MD on 08/27/2021 2:59 PM PDT Station ID: [id number]
[2021-08-27 15:13] VITALS: BP 124/79
[2021-08-27 15:48] LABS: HCT - HEMATOCRIT 24.2 % (37.0-47.0); HGB - HEMOGLOBIN 7.8 g/dL (12.0-16.0); MEAN CORPUSCULAR HEMOGLOBIN 31.2 pg (27.0-31.0); MEAN CORPUSCULAR HGB CONC 32.2 g/dL (32.0-36.0); MEAN CORPUSCULAR VOLUME 96.8 fL (81.0-99.0); MEAN PLATELET VOLUME 9.5 fL (7.9-10.8); RED BLOOD COUNT 2.5 10^6/uL (4.20-5.40); RED CELL DISTRIBUTION WIDTH 13.4 % (12.0-15.0); WHITE BLOOD COUNT 14.6 x10^3/uL (4.8-10.8)
== END 2021-08-27 16:58 | disposition home or self-care (01) ==
LOC: EDUNIT# → ED 11:59
DX: D64.89 Other specified anemias (principal); I11.0 Hypertensive heart disease with heart failure; I50.9 Heart failure, unspecified; E11.65 Type 2 diabetes mellitus with hyperglycemia; Z79.4 Long term (current) use of insulin; Z87.891 Personal history of nicotine dependence; Z99.81 Dependence on supplemental oxygen; Z66 Do not resuscitate
CPT/HCPCS: 36415; 51701; 71045; 74177; 80053; 81003; 82009; 82272; 83690; 83880; 85025; 85027; 96374; 96375; 99284; Q9967; 81001; 84484; 87086

== ENCOUNTER 2021-08-27 16:39 | Outpatient (CLI) | payer MEDICARE | END 2021-08-27 16:40 | disposition home or self-care (01) | LOC: EMS 16:39 | PROVIDERS: ATTEND Emergency Medicine | DX: D64.9 Anemia, unspecified (principal); I50.9 Heart failure, unspecified; E66.01 Morbid (severe) obesity due to excess calories; Z74.01 Bed confinement status; Z99.81 Dependence on supplemental oxygen | CPT/HCPCS: A0425; A0428 ==

== ENCOUNTER 2021-08-29 13:09 | Outpatient (CLI) | payer MEDICARE | END 2021-08-29 13:10 | disposition short-term general hospital (02) | LOC: EMS 13:09 | DX: R53.1 Weakness (principal) | CPT/HCPCS: A0425; A0427 ==

== ENCOUNTER 2021-10-12 12:40 | Outpatient (CLI) | payer MEDICARE ==
--- NOTE | 2021-10-12 16:17 | CONSULTATION NOTE ---
Palliative Care Follow Up - Referral Referring Provider: Dr. Tai Callahan Time of Visit: Intiated 1245 Referral setting: Home Referral Reason: F/u Hospitalization/Debility - Information Sources Records reviewed: Previous records reviewed History/Review of Systems obtained from: Patient, Caregiver (Vandana), Other (Friend Pru) Exam limitations: No limitations - History of Present Illness Update Brief HPI Update: This is a horacio 85-year-old female who was seen in follow-up today after hospitalization at [facility] from 08/29 to 09/13/2021 due to anemia, dysphagia, non-STEMI and acute kidney injury within her home after a care home facility stay for rehabilitation with her caregiver, Vandana present. Provider wore N95 mask. Patient presented to the emergency department after reports of malaise, difficulty swallowing, generalized weakness was seen and evaluated at [facility] emergency department x3 for multiple complaints. At last evaluation emergency department was 08/27 and the patient presented with a WBC of 14.6 and hemoglobin 7.8 and hematocrit of 24.2% when her baseline on 08/09 was with a hemoglobin 12.2 and hematocrit 38.4%. She presented to [facility] emergency department with a WBC of 13.8, hemoglobin 6.4, hematocrit 20.5% and BUN 52, creatinine 1.82 with evidence of acute kidney injury. Chest x-ray on presentation demonstrated pulmonary edema concerning for possible CHF exacerbation. During her hospitalization she received 3 units of packed RBCs as well as iron transfusion. Cardiology, nephrology, and gastroenterology were consulted during her hospitalization. She had an EGD performed that was unremarkable outside of chronic gastritis. She had a non-STEMI with positive stress test status post PCI to LAD now on Plavix x12 months and aspirin for life. Echocardiogram demonstrated EF of 25%. She has a follow-up with cardiology on 11/[address] Davis. Her REBEKAH inhibitor and spironolactone were discontinued due to LILY. She is being followed by [facility] services. She is pleased to be home. There are periods of time during her hospitalization that she does not recall the events for. She was pleased with her admission at [facility] for skilled rehabilitation. She reports that her energy is gradually improving and she hopes to never see a green applesauce or green Jell- O again. She continues to report intermittent dysphagia where if she does not chew very well she finds that things get stuck. She is alternating her diet. She was reported to follow-up with hematology for anemia, cardiology, and gastroenterology. [place] There is no inside solar sales consultant on [facility]. The patient reports since returning home glucose levels have been stable however, today she reports it was slightly elevated at 201. 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 +COVID 19 vaccine. Social History - Living Situation Living arrangement: At home Living Situation: With caregiver(s) (friend/caregiver Vandana and her , Terrence) Support System: Patient has been since 1989 after her of an RI. 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 The patient had 6 children, 3 boys and 3 girls. She presently only has 2 remaining children that are alive, a boy and a girl. The patient has Vandana who serves as her primary caregiver and has additional assistance from Vandana's , Terrence. Vandana's contact number is [phone]. Her friend Lanette, is a retired RN and provides assistance and is available Wednesdays and as there is no car for transport at the home. Medications/Allergies - Medications Home Medications: Ambulatory Orders Medication Instructions Recorded Confirmed Ascorbic Acid [Vitamin C] 1,000 mg PO DAILY 12/20/18 08/27/21 Garlic 1,000 mg PO DAILY 12/20/18 08/27/21 Loratadine 20 mg PO DAILY 12/20/18 08/27/21 Levothyroxine [Synthroid] 112 mcg PO QDAC 07/26/21 08/27/21 Insulin Detemir [Levemir] 37 unit SUBQ BID 08/08/21 08/27/21 Aspirin EC [Ecotrin] 81 mg PO DAILY 08/09/21 08/27/21 Insulin Regular Human [NovoLIN R] 18 - 28 units SQ TID 08/09/21 08/27/21 Levothyroxine Sodium 75 mcg PO DAILY 08/09/21 08/27/21 [Levothyroxine] Albuterol Sulf [Ventolin Hfa 2 puffs INH TID MDD x5 days 08/12/21 08/27/21 Inhaler] Furosemide [Lasix] 40 mg PO DAILY 08/27/21 08/27/21 Acetaminophen [Aphen] 650 mg PO Q4H PRN 10/12/21 10/12/21 Albuterol Sulfate [Proair Hfa 2 puffs IH Q8H 10/12/21 10/12/21 Inhaler] Atorvastatin Calcium 40 mg PO QPM 10/12/21 10/12/21 Calcium Carb/Mag Ox/Zinc Sulf 1 tab PO BID 10/12/21 10/12/21 [Ebr-[id number]-Hkfh 334-134-5 mg Tab] Cholecalciferol [Vitamin D3] 1 tab PO DAILY 10/12/21 10/12/21 Clopidogrel [Plavix] 75 mg PO DAILY 10/12/21 10/12/21 Cranberry Fruit Extract [Cranberry] 1 tab PO DAILY 10/12/21 10/12/21 Garlic Capsule 1,000 mg PO QPM 10/12/21 Hydralazine HCl 50 mg PO BID 10/12/21 10/12/21 Isosorbide Dinitrate 20 mg PO BID 10/12/21 10/12/21 Metoprolol Tartrate [Lopressor] 50 mg PO DAILY MDD Hold 10/12/21 10/12/21 SBP<100,HR<60 Multivitamin 1 tab PO DAILY 10/12/21 10/12/21 PARoxetine HCl [Paxil] 40 mg PO DAILY 10/12/21 10/12/21 Pantoprazole [Protonix] 40 mg PO BID 10/12/21 10/12/21 Vitamin B12 500mcg 1 cap PO DAILY 10/12/21 - Allergies Allergies/Adverse Reactions: Allergies Allergy/AdvReac Type Severity Reaction Status Date / Time codeine Allergy Unknown Verified 08/27/21 12:07 Review of Systems - Constitutional Constitutional: reports: Fatigue. denies: Fever, Poor appetite - Eyes Eyes: reports: Vision loss (seeing retinal specialist), Corrective lenses - Ears, Nose & Throat Ears, Nose & Throat: reports: Dentures. denies: Hearing loss - Cardiovascular Cardiovascular: denies: Palpitations, Edema - Respiratory Respiratory: reports: Other (supplemental oxygen in place). denies: Cough, Wheezing, SOB at rest - Gastrointestinal Gastrointestinal: reports: Good appetite. denies: Abdominal pain, Constipation, Bloody stools, Vomiting, Reflux/heartburn - Genitourinary Genitourinary: denies: Dysuria, Hematuria - Musculoskeletal Musculoskeletal: reports: Muscle weakness, Assistive devices - Integumentary Integumentary: denies: Rash - Neurological Neurological: reports: General weakness, Other (neuropathy to feet-- no longer on gabapentin or pregabalin) - Psychiatric Psychiatric: reports: Depression - Endocrine Endocrine: reports: Diabetes type 2 (04/2021 HgA1C 7.6%), Hypothyroidism - Hematologic/Lymphatic Hematologic/Lymph: reports: Anemia (3 units of PRBC 08/2021), Recurrent infections (Urinary tract infections: 01/11/2021, 03/25/2021, 08/09/2021) - All Other Systems All Other Systems: reports: Reviewed and negative Physical Exam - Vital Signs Temperature: 36.2 C Pulse Rate: 74 O2 Saturation: 97 (on 3L via [place]) Blood Pressure: 128/60 - Physical Exam General Appearance: positive: No acute distress, Alert, Other (morbidily obese and appears younger than stated age) Eyes Bilateral: positive: Normal inspection, Other (+corrective lenses) ENT: positive: No signs of dehydration Neck: positive: Trachea midline Cardiovascular: positive: Regular rate & rhythm, Other (distant heart sounds due to body habitus) Respiratory: positive: No respiratory distress, Other (on supplemental oxygen via NC). negative: Wheezes Abdomen: positive: Non-tender, Soft, Nml bowel sounds, Obese Skin: positive: Dryness Extremities: positive: No pedal edema Neurologic/Psychiatric: positive: Oriented x3, Mood/affect nml Palliative Care - POLST Patient has POLST: Yes POLST Status: DNR Results - Lab Results Lab results reviewed: Yes Lab and Imaging Results: 08/29/21 WC 13.8, hemoglobin 6.4, hematocrit 20.5%, platelet 460, sodium 132, BUN 52, creatinine 1.82, alk phos 170, estimated GFR 27, B THERAPY SITE COORDINATOR 512 Impression and Recommendations - Palliative Care Impression: This is an 85-year-old female who unfortunately sustained a non-STEMI status post PCI LAD now with dysphagia, CHF with ejection fraction 25% in the setting of CKD with hypertension and diabetes mellitus type 2. Patient will need follow-up with hematology due to recent anemia and status post packed RBCs will continue to follow CBC trend. Presently being supported by home health servic es. Palliative care will continue to provide care coordination, symptom management, and anticipatory guidance. Recommendations/Counseling Done: 1.CAD with non-STEMI status post PCI LAD. Followed by cardiology, Dr. Davis. No longer on REBEKAH/ARB due to recent LILY. Continue aspirin 81 mg. Continue Plavix 75 mg daily for 12 months due to stent placement. Continue met oprolol, hydralazine, and isosorbide as prescribed by cardiology. To continue statin therapy due to CAD and recent non-STEMI. 2. Anemia. EGD performed while inpatient without evidence of bleeding and pathology negative for malignancy and showed gastritis. Questionable functional iron deficiency anemia. Status post 3 units packed RBC and IV iron while inpatient. Will request outpatient follow-up with byproducts supervisor at [facility] as patient does not wish to go off [place]. Request CBC prior to next visit on 10/26 to follow trend. Continue Protonix 40 mg twice daily and consider dose reduction or changing PPI in the future based on cost and patient preference. Patient is unclear if she would wish to undergo her colonoscopy and will continue to consider. 3. Chronic gastritis. Continue Protonix 40 mg twice daily for gastritis as described above. 4. Dysphagia. Unclear cause. If patient wishes for further work-up as EGD was unremarkable then would need to follow-up with gastroenterology outpatient and would request from PCP once established. 5. Diabetes mellitus type 2. Continue Lantus 37 units twice daily and home sliding scale insulin regimen of 18 to 28 units with meals. He will globin A1c on 09/06 was 6.9% but likely falsely low due to the setting of anemia. We will need to reevaluate in the future. 6. 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 Patient presently off of gabapentin and pregabalin. At the present time wish things to settle within the home before reinitiating trial of pregabalin for neuropathy symptoms and patient in agreement. 7. Chronic kidney disease due to hypertension and diabetes mellitus type 2. LILY resolved. Status post nephrology consult while inpatient. No longer on REBEKAH/ARB or spironolactone. Will reassess BMP prior to visit on 10/26. Avoid nephrotoxic medications. 8.Congestive heart failure with ejection fraction 25%. Patient appears to be low euvolemic today. Continue furosemide 40 mg daily. Continue to monitor and adjust diuretic therapy as needed. 9. Advanced care planning. Patient has POLST in place as DN AR. Given most recent events with hospitalization and patient's multiple comorbidities we will continue to tease out goals of care moving forward. The present time, patient is unclear if she would wish to undergo a colonoscopy and only wishes to see specialist on [facility] and not off [place]. This, limits evaluation. Patient's PCP has recently moved and patient will need to establish with a new PCP and request that she call and schedule for a telehealth medicine visit with EMMA Eason and palliative care to continue to follow at is it is extremely difficult for the patient to leave her home environment. [facility] CPT 37775 Disclaimer: The chart note was formulated using voice recognition technology and unfortunately sound alike errors may occur.
== END 2021-10-12 12:41 | disposition home or self-care (01) ==
LOC: PC 12:40
PROVIDERS: ATTEND Nurse Practitioner Family
DX: Z51.5 Encounter for palliative care (principal); I25.10 Atherosclerotic heart disease of native coronary artery without angina pectoris; I25.2 Old myocardial infarction; D64.9 Anemia, unspecified; I50.30 Unspecified diastolic (congestive) heart failure; R13.10 Dysphagia, unspecified; E11.22 Type 2 diabetes mellitus with diabetic chronic kidney disease; I13.0 Hypertensive heart and chronic kidney disease with heart failure and stage 1 through stage 4 chronic kidney disease, or unspecified chronic kidney disease; N18.9 Chronic kidney disease, unspecified; K29.50 Unspecified chronic gastritis without bleeding; E11.42 Type 2 diabetes mellitus with diabetic polyneuropathy; Z79.02 Long term (current) use of antithrombotics/antiplatelets; Z79.82 Long term (current) use of aspirin; Z79.899 Other long term (current) drug therapy; Z95.5 Presence of coronary angioplasty implant and graft; Z79.4 Long term (current) use of insulin; Z99.81 Dependence on supplemental oxygen; Z66 Do not resuscitate
CPT/HCPCS: 99349

== ENCOUNTER 2021-11-08 12:30 | Outpatient (CLI) | payer MEDICARE ==
--- NOTE | 2021-11-08 15:39 | CONSULTATION NOTE ---
Palliative Care Follow Up - Referral Referring Provider: Dr. Tai Callahan Time of Visit: [id number] Referral setting: Home Referral Reason: s/p hospitalization/COPD/CHF - Information Sources Records reviewed: Previous records reviewed History/Review of Systems obtained from: Patient, Friend (friend/DPOA Pru), Caregiver (Vandana) Exam limitations: No limitations - History of Present Illness Update Brief HPI Update: This is a horacio 85-year-old female who was seen in follow-up today after hospitalization for acute on chronic hypoxemic respiratory failure on 10/24 at [facility] in the setting of COPD with oxygen supplementation, CHF, and increasing debility in her home with her caregiver Vandana and friend/DPOA who present The patient unfortunately has experienced multiple emergency department visits and is well as to hospitalizations since July 2021. The patient's most recent hospitalization was on 10/24 when she presented to the emergency department at [place] with increased dyspnea where she was diagnosed with acute on chronic hypoxemic respiratory failure with a chest x-ray that demonstrated venous congestion. Upon returning home her Lasix dosage has been increased from 40 mg to 60 mg daily without potassium supplementation and in the past friend, Sarance and patient reports that when she was on potassium supplementation this resulted resulted in hyperkalemia. She was also seen on 08/08 in the emergency department at [facility] for COPD exacerbation; on 08/09 and at [facility] emergency department for CHF exacerbation and urinary tract infection; and again presented to the emergency department on 08/27 with congestive heart failure and anemia with significant decline in her hemoglobin to 7.8 and hematocrit 24.2% when her baseline at 08/09 was a hemoglobin of 12.2 and hematocrit 38.4%. Her previous hospitalization was at [facility] from 08/29 to 10/13/2021 due to anemia, CAD status post PCI to at, non-STEMI and acute kidney injury. During her hospitalization freddy thakkar received 3 units of packed RBCs as well as an iron transfusion. Cardiology, nephrology, gastroenterologic pathology were consulted during her hospitalization. She had an EGD that was unremarkable outside of chronic gastritis and echocardiogram demonstrated EF of 25%. She was seen by her door frame builder, Dr. Davis on 11/03 and her hydralazine and Imdur dosage were increased to, hydralazine 100 mg twice daily and Imdur 30 mg twice daily and patient continues to monitor her blood pressure at home with last blood pressure reading this morning 145/54 before medications. Since returning home from her last hospitalization she is reporting increased shortness of breath with activity and becoming winded easily despite having her nasal cannula with supplemental oxygen in place. Her friend/DPOA, Prudence obtained a face mask to be used with the patient supplemental oxygen and when she is having increased activity this significantly improves her breathlessness. Her appetite has diminished and she is eating approximately half of her meals and it is reporting a disinterest in some early satiety. Her weight has remained stable at 315lbs and was obtained again today. She continues to report occasional items getting stuck in her throat however, she is not on a full pured diet but intermittently with certain foods will have a pured to prevent things getting stuck. She is now transition to drinking more water versus tea. Her blood glucose levels have remained stable and they are administering 8 units of Novolin are with meals and then if the patient's blood glucose level is above 200 will then provide sliding scale and this has been assistive with maintaining control and not having lows. She also remains on Levemir twice a day for control. Past Medical History: Patient has a past medical history of congestive heart failure is diastolic dysfunction EF 25% 08/2021, CHF exacerbation 08/2021, hypertension, hyperlipidemia, coronary artery disease, CT, pulmonary hypertension, NSTEMI 08/2021 (Plavix x12 months), COPD on supplemental oxygen, COPD exacerbation 08/2021, sleep apnea but does not wear CPAP, morbid obesity, depression, diabetes mellitus type 2, hypothyroidism, chronic hearing loss, anxiety, fatigue, necrotizing fasciitis of the right abdominal wall secondary to MRSA in 2019, CKD, Dysphagia. +COVID 19 vaccine. Social History - Living Situation Living arrangement: At home Living Situation: With caregiver(s) (friend/caregiver Vandana and her , Terrence) Support System: Patient has been since 1989 after her of an [address]. 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 The patient had 6 children, 3 boys and 3 girls. She presently only has 2 remaining children that are alive, a boy and a girl. The patient has Vandana who serves as her primary caregiver and has additional assistance from Vandana's , Terrence. Vandana's contact number is [phone]. Her friend Lanette, is a retired RN and provides assistance and is available Wednesdays and and fills her medication mediset. Patient and Pru have been friends for 47 years. [facility] is following. Medications/Allergies - Medications Home Medications: Ambulatory Orders Medication Instructions Recorded Confirmed Ascorbic Acid [Vitamin C] 1,000 mg PO DAILY 12/20/18 08/27/21 Garlic 1,000 mg PO DAILY 12/20/18 08/27/21 Loratadine 20 mg PO DAILY 12/20/18 08/27/21 Levothyroxine [Synthroid] 112 mcg PO QDAC 07/26/21 08/27/21 Insulin Detemir [Levemir] 37 unit SUBQ BID 08/08/21 08/27/21 Aspirin EC [Ecotrin] 81 mg PO DAILY 08/09/21 08/27/21 Insulin Regular Human [NovoLIN R] 18 - 28 units SQ TID 08/09/21 08/27/21 Levothyroxine Sodium 75 mcg PO DAILY 08/09/21 08/27/21 [Levothyroxine] Albuterol Sulf [Ventolin Hfa 2 puffs INH TID MDD x5 days 08/12/21 08/27/21 Inhaler] Furosemide [Lasix] 60 mg PO DAILY 08/27/21 08/27/21 Acetaminophen [Aphen] 650 mg PO Q4H PRN 10/12/21 10/12/21 Albuterol Sulfate [Proair Hfa 2 puffs IH Q8H 10/12/21 10/12/21 Inhaler] Atorvastatin Calcium 40 mg PO QPM 10/12/21 10/12/21 Calcium Carb/Mag Ox/Zinc Sulf 1 tab PO BID 10/12/21 10/12/21 [Sik-Fsc-Obxl 334-134-5 mg Tab] Cholecalciferol [Vitamin D3] 1 tab PO DAILY 10/12/21 10/12/21 Clopidogrel [Plavix] 75 mg PO DAILY 10/12/21 10/12/21 Cranberry Fruit Extract [Cranberry] 1 tab PO DAILY 10/12/21 10/12/21 Garlic Capsule 1,000 mg PO QPM 10/12/21 Hydralazine HCl 100 mg PO BID 10/12/21 10/12/21 Isosorbide Dinitrate 30 mg PO BID 10/12/21 10/12/21 Metoprolol Tartrate [Lopressor] 50 mg PO DAILY MDD Hold 10/12/21 10/12/21 SBP<100,HR<60 Multivitamin 1 tab PO DAILY 10/12/21 10/12/21 PARoxetine HCl [Paxil] 40 mg PO DAILY 10/12/21 10/12/21 Vitamin B12 500mcg 1 cap PO DAILY 10/12/21 Insulin Regular Human [NovoLIN R] 8 units SQ TID MDD with meals 11/09/21 11/09/21 Miconazole Powder 2% 1 applic TP BID PRN 11/09/21 - Allergies Allergies/Adverse Reactions: Allergies Allergy/AdvReac Type Severity Reaction Status Date / Time codeine Allergy Unknown Verified 08/27/21 12:07 Review of Systems - Constitutional Constitutional: reports: Fatigue, Poor appetite, Weight stable (weight 315lb today). denies: Fever - Eyes Eyes: reports: Vision loss (seeing retinal specialist), Corrective lenses - Ears, Nose & Throat Ears, Nose & Throat: reports: Dentures. denies: Hearing loss, Mouth lesions - Cardiovascular Cardiovascular: denies: Palpitations, Edema - Respiratory Respiratory: reports: SOB with exertion, Other (supplemental oxygen in place). denies: Cough, Wheezing - Gastrointestinal Gastrointestinal: reports: Other (Decreased appetite with mild early satiety). denies: Abdominal pain, Constipation, Nausea, Vomiting, Reflux/heartburn (Controlled with protonix 40mg BID but concern for cost will transition to omeprazole) - Genitourinary Genitourinary: denies: Dysuria, Hematuria - Musculoskeletal Musculoskeletal: reports: Muscle weakness, Assistive devices - Integumentary Integumentary: reports: Rash (Trace under b/l breasts and uses Miconazole 2% powder and requires refill) - Neurological Neurological: reports: General weakness, Other (neuropathy to feet-- no longer on gabapentin or pregabalin) - Psychiatric Psychiatric: reports: Depression - Endocrine Endocrine: reports: Diabetes type 2 (04/2021 HgA1C 7.6%), Hypothyroidism - Hematologic/Lymphatic Hematologic/Lymph: reports: Anemia (3 units of PRBC 08/2021), Bruising (after lovenox injections to abdomen during hospitalization), Recurrent infections (Urinary tract infections: 01/11/2021, 03/25/2021, 08/09/2021; 10/24/2021) - All Other Systems All Other Systems: reports: Reviewed and negative (supported by friend/DPOA Prudence and friend/caregiver Vandana) Physical Exam - Vital Signs Temperature: 36.5 C Pulse Rate: 54 O2 Saturation: 92 (on oxygen) Blood Pressure: 118/60 - Physical Exam General Appearance: positive: No acute distress, Alert, Other (morbidily obese and appears younger than stated age) Eyes Bilateral: positive: Normal inspection, Other (+corrective lenses) ENT: positive: No signs of dehydration Neck: positive: Trachea midline Cardiovascular: positive: Bradycardia, Other (distant heart sounds due to body habitus) Respiratory: positive: No respiratory distress, Rales (trace LLL), Other (on supplemental oxygen via [place]; after transfer to [facility] patient became pale and demonstrated increased SOB and improved with use of her oxygen mask with her supplemental oxygen vs continuation of nasal canula useage). negative: Wheezes Abdomen: positive: Non-tender, Soft, Nml bowel sounds, Obese Skin: positive: Dryness, Bruising (noted to abdomen due to lovenox injections--resolving), Rash (trace erythema under b/l breasts c/w candidasis) Extremities: positive: No pedal edema Neurologic/Psychiatric: positive: Oriented x3, Mood/affect nml, Weakness Palliative Care - POLST Patient has POLST: Yes POLST Status: DNR, Selective Treatment Pain: No pain Performance Status: Patient is ambulatory only for short distances due to increased dyspnea. Meal prep was provided to her by her caregivers as well as assistance with hygiene with a bathing aide. Ambulatory with her walker. Utilizes a bedside commode to reduce distance with ambulation. Remains continent of bowel and bladder. No recent falls. - Palliative Care Discussion: Since July, the patient has unfortunately sustained multiple emergency department visits and 2 [id number] hospitalizations due to exacerbations of her COPD, congestive heart failure, and development of a non-STEMI resulting in PCI to the LAD and now being Dual antiplatelet therapy. After her most recent hospitalization this month, the patient reports significant fatigue and a desire to remain at home. After several [id number] appointments this significantly depleted her energy and it is taken approximately 4 days for her to recover. Set expectations with the patient that this is not unexpected given her energy reserve. This most recent event has highlighted for her that she does not wish to return to the hospital and wishes to focus on comfort within her home setting and optimize her care at home. She relays that "the last several weeks has taken it out of me." She relates that she is tired and is "ready to go." She is at peace that if she were to have an event and that she is ready. This is something that she and her best friend/FADI Ruiznce have been discussing. Prudence is supportive in the patient's decision making regarding her health. Given the patient's desire to not return to the hospital and her frequent exacerbations introduced the role of hospice services today and the patient wishes to make this transition. However, did have a lengthy discussion that when patient approaches end of life and has more symptoms given the patient's caregivers, Vandana and Terrence, strongly emotionally attached would require additional support within the home or transition to a general inpatient unit for management of symptoms. The patient expresses peace in making the decision to transition to hospice services for additional support to honor her wishes to remain out of the hospital. Results - Lab Results Lab results reviewed: Yes Lab and Imaging Results: 10/24/2021 Sodium 139, potassium 4.1, BUN 38, creatinine 1.41, AST 26, ALT 36, alk phos 228, WBC 9.0, hemoglobin 9.7, hematocrit 31.1%, platelet 345, BNP 294 Impression and Recommendations - Palliative Care Impression: This is a horacio 85-year-old female who unfortunately has sustained multiple emergency department visits and two recent hospitalizations in the setting of COPD exacerbation, CHF exacerbation, urinary tract infection, non-STEMI status post PCI to LAD with increasing exercise intolerance despite despite supplemental oxygen and further debility. Patient is status post cardiology follow-up with adjustments made to her medications as noted below. Given the patient's desire to no longer present to the emergency department for management and to focus on quality of life and symptoms at home will transition to hospice services for additional support to support her goals. Recommendations/Counseling Done: 1. Chronic COPD. Recent and exacerbations noted on 08/08/2021 and 10/24/2021. Patient is now requiring assistance from a facemask after increased activity for her supplemental oxygen and will send a request to [facility] to provide additional masks. Patient's increased symptoms related to her COPD are also in the setting of pulmonary hypertension. Patient is aware that this is a progressive disease and is supported by supplemental oxygen. Given her increased symptoms and desire to remain out of the hospital in the future will transition to hospice services at home for additional support and oversight. 2. Congestive heart failure with ejection fraction 25% noted on 08/2021. Patient appears to be euvolemic today. Continue furosemide 60 mg daily. Continue to encourage elevation of lower extremities when at rest. Continue to monitor and adjust oral diuretic therapy to optimize the patient's comfort. 3. Chronic gastritis. Presently on Protonix 40 mg twice daily for gastritis however, due to concerns regarding cost will transition to omeprazole 20 mg daily new Rx sent to pharmacy of patient's request to utilize once Protonix prescription is completed with understanding verbalized. 4.CAD with non-STEMI status post PCI to LAD. Status post cardiology visit with Dr. Davis on 11/03. Will Dioni last visit note. No longer on REBEKAH/ARB due to acute kidney injury care. Continue aspirin 81 mg. Continue Plavix 75 mg daily for 12 months due to stent placement. Continue metoprolol, hydralazine, and Imdur as prescribed by cardiology. Presently also on statin therapy due to CAD and recent non-STEMI. 5. Advanced care planning. Patient has POLST in place as DN AR with selective interventions. Given her most recent events with hospitalization and multiple comorbidities the patient wishes to remain out of the hospital and focus on comfort and quality of life therefore, we will make a transition to home hospice services to provide support within the home. As the patient transitions towards end-of-life s her caregivers will require emotional support during this transition due to caregiver burden. Supportive and empathetic listening provided today. [facility] Total time spent 75 minutes with greater than 50% of this spent in counseling a nd coordination of care with patient, friend/DPOA and caregiver; review of de- escalation of care; review of hospice philosophy; review of recent hospitalization at [place] and medical records; examination of patient; supportive listening; and anticipatory guidance. Disclaimer: The chart note was formulated using voice recognition technology and unfortunately sound alike errors may occur.
== END 2021-11-08 12:31 | disposition home or self-care (01) ==
LOC: PC 12:30
PROVIDERS: ATTEND Nurse Practitioner Family
DX: Z51.5 Encounter for palliative care (principal); J96.21 Acute and chronic respiratory failure with hypoxia; J44.9 Chronic obstructive pulmonary disease, unspecified; Z99.81 Dependence on supplemental oxygen; Z79.899 Other long term (current) drug therapy; Z66 Do not resuscitate; K29.70 Gastritis, unspecified, without bleeding; Z79.02 Long term (current) use of antithrombotics/antiplatelets; Z79.82 Long term (current) use of aspirin; I25.2 Old myocardial infarction; I13.0 Hypertensive heart and chronic kidney disease with heart failure and stage 1 through stage 4 chronic kidney disease, or unspecified chronic kidney disease; N18.9 Chronic kidney disease, unspecified; I50.30 Unspecified diastolic (congestive) heart failure; E11.22 Type 2 diabetes mellitus with diabetic chronic kidney disease; Z79.4 Long term (current) use of insulin
CPT/HCPCS: 99350

== ENCOUNTER 2021-11-26 01:42 | Outpatient (CLI) | payer MEDICARE | END 2021-11-26 01:43 | disposition EMS.NT | LOC: EMS 01:42 | DX: Z03.89 Encounter for observation for other suspected diseases and conditions ruled out (principal) ==